=== PATIENT | female | born 1985 | race Two or more races ===

== ENCOUNTER → 2018-05-03 15:45 | Outpatient (CLI) | payer BC, SELFPAY ==
[2018-05-04 12:23] LABS: Chlamydia Trachomatis by PCR Negative (Negative); Neisserai gonorrhoeae by PCR Negative (Negative); Probe Check PASS; Sample Adequacy Control PASS; Specimen Processing Control PASS
== END ==
PROVIDERS: Visit Provider Obstetrics & Gynecology
DX: Z11.3 Encounter for screening for infections with a predominantly sexual mode of transmission (principal)
CPT/HCPCS: 87491; 87591

== ENCOUNTER → 2018-05-31 10:15 | Outpatient (CLI) | payer BC, SELFPAY ==
[2018-06-06 17:12] LABS: HPV APTIMA, High Risk Negative (Negative)
== END ==
PROVIDERS: Referring Provider Obstetrics & Gynecology; Visit Provider Obstetrics & Gynecology
DX: Z12.4 Encounter for screening for malignant neoplasm of cervix (principal)
CPT/HCPCS: 88175; G0145

== ENCOUNTER → 2021-06-02 | Outpatient (CLI) | payer BC, SELFPAY ==
--- NOTE | 2021-06-02 08:30 | FLU_PTH ---
PATIENT: ZAC KEEN LOC: [facility] U#:[id number] AGE/SX: 36/F ROOM: RE06/02/[address]: Dr. Kenrick Cano MD : 1985 BED: DIS: 06/02/2021 SPEC #: [id number] RECD: 06/02/21 14:47 STATUS: AZRA JANAY #: [id number] FLAQUITO: 06/02/21 08:[address]: Kenrick Cano DEPT: CYTOLOGY RECD BY: Priscilla Josue ENTERED: 06/03/21 07:36 SP TYPE: Fluid OTHR DR: ANIBAL Workman Tissues: A - Thyroid gland, NOS B - Thyroid gland, NOS Procedures: Special Stain Group II Surgery Specimen Level IV Cytospin Fluid HEADER OPERATION: Right thyroid fine needle aspiration PRE-OP DIAGNOSIS: Right thyroid nodule TISSUE SUBMITTED: A ? Right thyroid nodule fluid, B ? Right thyroid nodule x4 slides DIAGNOSIS CYTOLOGY A. Right thyroid nodule fluid, FNA (cytospin and cell block): Rare benign follicular cells are noted. B. Right thyroid nodule, FNA (smears): Consistent with benign follicular/colloid nodule. Adequate for evaluation. See comment. SJ:luisito 06/04/2021 COMMENT B. The specimen shows drying artifact. Correlation with clinical, radiologic findings and appropriate follow up are necessary. Case has been reviewed in consultation with Dr. Reese who concurs with the above diagnosis. IDC:AM CYTOLOGY STUDY Slides are reviewed. CYTOLOGY GROSS A - Received is 35 ml of clear light red fluid labeled with the patient's name and and designated per the requisition as right thyroid. Submitted for cytology preparation including cell block. B - Received are four smears labeled with the patient's name and designated per the requisition as right thyroid. Submitted for staining. / luisito 06/03/2021 TC:5 CPT: 80104, 87267, 95741
== END | disposition home or self-care (01) ==
LOC: LABSPEC 15:05
PROVIDERS: PCP Physician Assistant; Visit Provider Surgery
DX: E04.1 Nontoxic single thyroid nodule (principal)
CPT/HCPCS: 88108; 88305; 88313

== ENCOUNTER 2021-06-23 05:56 | Day surgery (SDC) | payer BC, SELFPAY ==
[2021-06-23] VITALS (10 sets, daily range): BP systolic 102–120; BP diastolic 50–81; PULSE 75–129; RESP 16–18; TEMP 36.2–37.1; O2SAT 96–100; BMI 23.1
--- NOTE | 2021-06-23 | IMM_PTH ---
PATIENT: ZAC KEEN [place] [facility] [place][id number] AGE/SX: 36/F ROOM: RE06/23/[address]: Dr. Kenrick Cano MD : 1985 BED: DIS: 06/23/2021 SPEC #: [id number] RECD: 06/24/21 12:11 STATUS: AZRA REQ #: [id number] FLAQUITO: 06/23/21 00:[address]: Kenrick Cano DEPT: IMMUNOHISTOCHEMISTRY RECD BY: Karley De Leon ENTERED: 06/24/21 12:13 SP TYPE: IMMUNO OTHR DR: ANIBAL Workman Tissues: Thyroid gland, NOS Procedures: CK19 (initial) CD56 (add) GAL-3 (add) HBME (add) TTF1 (add) Comments: @ Specimen number changed from [id number] to [id number] @ on 06/24/21 at 1221 by RGOOD. PHYSICIAN & [place] [id number] SPECIMEN INFORMATION: Tissue Source: Right thyroid lobectomy Clinical Info: Thyroid nodule Specimen Number: [id number] #4 CPT code: 79739, 25200 x4 METHODOLOGY: Deparaffinized sections of prefer/formalin-fixed tissue or PAP/DQ stained slides are incubated with monoclonal/polyclonal antibodies/oligonucleotide probes. Localization is made via biotin free immunoperoxidase method. Appropriate controls are performed and reacted as expected. Results on target cell population are indicated in the following table: RESULTS: ANTIBODY / CLONE RESULT Block 4 CK19 (A53-B/A2.26) positive TTF-1 (8G7G3/1) positive CD56 (123C3.D5) negative GAL3 (9C4) positive HBME1 (HBME-1) positive These tests were developed and their performance characteristics determined by [facility]. They may not have been cleared or approved by the U.S. Food and Drug Administration. The FDA has determined that such clearance or approval is not necessary. The above immunohistochemical/dualISH markers are ordered and reviewed by the Pathologist. INTERPRETATION: Right thyroid lobectomy: Papillary thyroid carcinoma. AM:luisito 06/26/2021
--- NOTE | 2021-06-23 | THYROID_PTH ---
PATIENT: ZAC KEEN LOC: [facility] [place] U#:[id number] AGE/SX: 36/F ROOM: RE06/23/[address]: Dr. Kenrick Cano MD : 1985 BED: DIS: 06/23/2021 SPEC #: [id number] RECD: 06/23/21 10:23 STATUS: AZRA JANAY #: [id number] FLAQUITO: 06/23/21 00:[address]: Kenrick Cano DEPT: SURGICAL PATHOLOGY RECD BY: Karley De Leon ENTERED: 06/23/21 11:18 SP TYPE: THYROID OTHR DR: ANIBAL Workman Tissues: Thyroid gland, NOS Procedures: Frozen Section (charge) Surgery Specimen Level V HEADER OPERATION: Right thyroid lobectomy with isthmusectomy PRE-OP DIAGNOSIS: Thyroid nodule TISSUE SUBMITTED: Right thyroid lobe and isthmus, stitch ross superior pole, FS at 1020 FROZEN SECTION DIAGNOSIS Right thyroid lobe, lobectomy: Cellular follicular lesion. AM:lusiito 06/23/2021 Case has been reviewed in consultation with Dr. Chaparro who concurs with the above diagnosis. IDC:SJ MICROSCOPIC DIAGNOSIS Right thyroid lobe, lobectomy: Papillary thyroid carcinoma, follicular variant. See cancer synoptic report below. AM:luisito COMMENT THYROID CANCER SUMMARY Procedure: Right thyroid lobectomy Tumor Focality: Unifocal Tumor Site: Right lobe Tumor Size: 1.8 x 1.5 x 1.0 cm Histologic Type: Papillary carcinoma, Follicular variant Margins: Free of carcinoma (<1 mm from posterior margin) Angioinvasion: Not identified Lymphatic Invasion: Not identified Extrathyroidal Extension: Not identified Regional Lymph Nodes: None identified Ancillary Studies: [id number] (results reported separately) Additional Pathologic Findings: Chronic lymphocytic thyroiditis, focal Clinical History: Mass of thyroid PATHOLOGIC STAGE: T1b Nx Mx The above summary is in compliance with [employer] [place] [employer] (CAP) Cancer Protocols Checklist and [place] [employer] Committee on Cancer (AJCC), Staging Manual, 8th Ed. Case has been reviewed in consultation with Dr. Chaparro who concurs with the above diagnosis. IDC:SJ MICROSCOPIC DESCRIPTION Slides are reviewed. GROSS DESCRIPTION Received fresh for frozen section consultation labeled with the patient's name is a specimen designated right thyroid. The specimen consists of a thyroid lobe measuring 6 x 3.5 x 2.5 cm and weighing 18 gm. The anterior surface is inked in blue ink and the posterior surface and is inked in black ink. The specimen is serially sectioned to reveal a solid, judge-white nodule measuring 1.8 x 1.5 x 1 cm. This nodule is contained within the thyroid. The remainder of the thyroidal tissue is beefy red in color. No additional nodules or masses are identified. Industrial Engineering Manager section of the mass is submitted for frozen section consultation in one block (cassette 1). The remainder of the nodule is submitted in cassettes 2-7. The remainder of the lobe of the thyroid is submitted in cassettes 8-11. / AM:luisito 06/23/21 TC:0 CPT: 33617, 16943
[2021-06-23 07:02] LABS: Internal QC Validated? YES +Cl - CLEAR BKGD; Pregnancy, Urine Negative Negative
[2021-06-23] MEDS: Lactated Ringers 1,000 ML 15 ML IV ×2 (07:09→11:32)
--- NOTE | 2021-06-23 07:11 | HP.PCM_ITS ---
History and Physical Date of Admission: 06/23/21 Date of Service: 06/16/21 MR#:[id number]:[id number]: ZAC KEENRep #:[id number]:[id number] Provider:Dr. Kenrick Cano MDAge/Sex: 36/F [facility]:Signed with Addenda ADDENDUM by Dr. Kenrick Cano MD on 06/16/21 at 1349 Intake Chief Complaint: Discuss thyroid surgery Allergies No Known Allergies Allergy (Verified 06/16/21 10:19) Medications norgestimate 0.25 mg-ethinyl estradiol 35 mcg tablet 1 tab PO DAILY 06/02/21 [History Confirmed 06/16/21] omeprazole 20 mg capsule,delayed release 20 mg PO DAILY 06/02/21 [History Confirmed 06/16/21] Assessment and Plan Assessment and Plan (1) Thyroid nodule: Status: Acute Comment: This is a 36-year-old, otherwise healthy, female who presents with newly?diagnosed right thyroid nodule following a work-up for several months of progressive dysphagia. Biochemically, she is euthyroid. She denies any other compressive symptomatology and her history. By ultrasound, this nodule was rated a TI-RADS 5. This nodule was biopsied with ultrasound-guided FNA on 06/02/2021. Specimen was found to be adequate for evaluation and consistent with a benign lesion. However, given its very suspicious ultrasound appearance, I have recommended proceeding with a diagnostic lobectomy (I confirmed with the original imaging that there are no suspicious findings in the patient's left thyroid lobe and the area of concern as well within the right thyroid lobe?not in proximity of the isthmus). Also was careful to show the patient my suspicion for extrathyroidal extension on the original ultrasound images. We reviewed in detail using sketches the relevant anatomy and the risks/benefits associated with the procedure. Enumerated, these risks included those of hypocalcemia and recurrent laryngeal nerve injury. She and her were given the opportunity ask questions. At the conclusion of the visit, they denied any further questions and expressed to the desire to proceed as recommended. 06/16/21 1349<Electronically signed by Kenrick Cano MD>Date Kenrick Cano MD cc: ANIBAL Batista ~*Signed Intake Vital Signs 06/16/21 10:18 Height 5 ft 7 in Weight: 150 lb BMI 23.5 BP 120/76 Blood Pressure Location Rt brachial Position Sitting Respiration 18 Pulse 82 Pulse Source Monitor Temp 97.8 F Temp Source Temporal Pulse Oximetry (%) 99 Oxygen Delivery Method room air Intake Visit Reasons: Discuss surgical options Chief Complaint: Discuss thyroid surgery Accompanied by: Is patient in pain?: No Allergies No Known Allergies Allergy (Verified 06/16/21 10:19) Medications norgestimate 0.25 mg-ethinyl estradiol 35 mcg tablet 1 tab PO DAILY 06/02/21 [History Confirmed 06/16/21] omeprazole 20 mg capsule,delayed release 20 mg PO DAILY 06/02/21 [History Confirmed 06/16/21] PFSH Medical History (Updated 06/16/21 @ 13:[address] Kenrick Cano MD) Acid reflux Thyroid nodule Surgical History H/O section Family History Grandmother Cancer Thyroid disorder Social History Smoking Status: Never smoker alcohol intake: current alcohol intake frequency: a few times a month HPI HPI HPI: ZAC KEEN, is a 36 F who presents to the office today for right thyroid nodule. They are referred for surgical consultation from ANIBAL Workman. This was discovered during a work-up for symptoms of swallowing difficulties over the past couple months. Her initial consultation was on 06/02/2021 during which time she underwent ultrasound?guided FNA of her suspicious right thyroid nodule. Those results were benign and are recapitulated below. However, given the very suspicious sonographic picture of this nodule, I telephoned the patient and advised her I was uncomfortable merely surveilling this nodule and recommended thyroid lobectomy. She presents today for preoperative discussion. States that her swallowing symptoms have remained stable. She gives the example of today's breakfast (a half bagel and yogurt) stating that she felt things getting stuck. She also relates that her cousin recently went through with a thyroid operation. She is uncertain of the diagnosis that occasioned this operation. However, her cousin's postoperative course was complicated by some vocal cord issues that persisted for approximately 1 year postoperatively. Previous work-up has included thyroid ultrasound which shows a right thyroid lobe, midpole nodule measuring 1.6 cm x 1.6 cm x 1.6 cm and was rated a TI-RADS 5. An FNA was performed by me under ultrasound guidance on 06/02/2021 with the results: DIAGNOSIS CYTOLOGY A. Right thyroid nodule fluid, FNA (cytospin and cell block):Rare benign follicular cells are noted.B. Right thyroid nodule, FNA (smears):Consistent with benign follicular/colloid nodule.Adequate for evaluation. Other tests include: TSH of 1.76 (05/12/2021) ROS General General: No weight change, appetite, fatigue, colon cancer, breast cancer or weakness HEENT HEENT: No difficulty swallowing, eye injury, eye surgery, swollen glands or hoarseness Endo Endocrine: No thyroid disease, diabetes mellitus, thyroid cancer, Hair loss, heat intolerance or cold intolerance Skin Skin: No rash or changing moles Breast Breast: No left breast lump, right breast lump, nipple discharge, breast pain, abnormal mammogram, abnormal US or breast enlargement Musc Musculoskeletal: No back problems, arthritis, rheumatoid arthritis, gout or joint pain Cardio Cardiovascular: No murmur, pacemaker, heart disease, atrial fibrillation, high blood pressure, heart attack, heart stent, palpitations, shortness of breat with exertion or chest pain Psych Psychiatric: No depression, anxiety or hearing voices Resp Respiratory: No shortness of breath, No sleep apnea, No cough, No COPD, No asthma, No emphysema and No wheezing Gastro Gastrointestinal: No abdominal pain, No nausea or vomiting, No diarrhea, No constipation, No blood in stool, Yes acid reflux, No hemorrhoids, No ulcers, No gallbladder problem and No black,tarry stools Claude Hematologic: No blood thinners, No blood disorders, No bleeding, No anemia and No blood clots Neuro Neurologic: No system reviewed and no additional complaints, except as documented, No as per HPI, No abnormal gait, No abnormal hearing, No abnormal movements, No abnormal speech, No behavioral changes, No burning sensations, No confusion, No convulsions, No disequilibrium, No dizziness, No localized weakness, No frequent falls, No headache(s), No lack of coordination, No loss of vision, No memory loss, No numbness, No other visual disturbances, No radicular pain, No restless legs, No sensory deficit, No syncope, No tingling, No tremor(s), No weakness and No other Exam Const General: cooperative and no acute distress Orientation: alert, awake and oriented x3 Neck Thyroid: asymmetrical, mass on the right on the right and tender (Mild discomfort with palpation) Assessment and Plan Assessment and Plan (1) Thyroid nodule: Status: Acute Comment: This is a 36-year-old, otherwise healthy, female who presents with newly?diagnosed right thyroid nodule following a work-up for several months of progressive dysphagia. Biochemically, she is euthyroid. She denies any other compressive symptomatology and her history. By ultrasound, this nodule was rated a TI-RADS 5. This nodule was biopsied with ultrasound-guided FNA on 06/02/2021. Specimen was found to be adequate for evaluation and consistent with a benign lesion. However, given its very suspicious ultrasound appearance, I have recommended proceeding with a diagnostic lobectomy (I confirmed with the original imaging that there are no suspicious findings in the patient's left thyroid lobe and the area of concern as well within the right thyroid lobe?not in proximity of the isthmus). We reviewed in detail using sketches the relevant anatomy and the risks/benefits associated with the procedure. Enumerated, these risks included those of hypocalcemia and recurrent laryngeal nerve injury. She and her were given the opportunity ask questions. At the conclusion of the visit, they denied any further questions and expressed to the desire to proceed as recommended. Plan - Dr. Kenrick Cano MD: ?Right thyroid lobectomy with intraoperative nerve monitoring I have re-examined the patient. There are no clinical changes since date of exam. I did discuss with the patient the intent to use frozen section help guide her operation today. I indicated that if there was a definitive change in the pathologic diagnosis it would be best to pursue a total thyroidectomy given the suspicion for extrathyroidal extension on the right. Patient and her were given the opportunity ask questions and agreed to proceed with this addendum to the informed consent.
[2021-06-23] MEDS: Bupivacaine 0.25% 30 ML Vial (10:50)
--- NOTE | 2021-06-23 10:54 | PCM.OPRPT ---
Report of Operation Date of Procedure: 06/23/21 Pre-Operative Diagnosis: Suspicious right thyroid nodule Post-Operative Diagnosis: Follicular lesion of the right thyroid by frozen section without papillary architecture Surgery/Procedure Performed:: Right thyroid lobectomy/isthmusectomy Description of Surgical Findings:: ?Firm right thyroid nodule with post FNA inflammatory changes and adhesions to the overlying sternothyroid ?Intact superior and inferior parathyroid glands by gross examination ?Intact recurrent laryngeal nerve (gross examination and intraoperative nerve simulation Surgeon: Kenrick Cano grain merchandising manager: Jess Stewart Type of Anesthesia: General/Supplemental Anesthesiologist: Elliott Reynaga Specimen's removed: Right thyroid lobe and isthmus Estimated Blood Loss (mL): 75 Description of Procedure: Appropriate identification in the preoperative holding area patient was brought to the operating room where she was positioned supine on the operating room table. There she induction with general endotracheal anesthetic. A Nims nerve monitoring tube was placed with the glide scope device to ensure coaptation between the tube electrodes in the patient's vocal cords. Patient was positioned with neck extension but care was made to ensure that there was not over extension. Her neck was then prepped and draped in the usual sterile fashion. A formal timeout was conducted to confirm both the patient and the procedure. Then a local block was produced in long the planned incision line. A transverse cervical incision was made in the lowest skin fold nearest the cricoid cartilage, 4 cm in length. This incision was deepened through the platysma with the use of electrocautery. Subplatysmal flaps were raised superiorly and inferiorly with electrocautery. Then the strap muscles were divided along the median raphe. It quickly proved evident that the sternothyroid muscle was somewhat adherent to the patient's thyroid capsule anteriorly so I elected to try to leave a small amount of muscle attached to the thyroid capsule in the case of possible extrathyroidal extension. Ultimately we were able to free this muscle from the thyroid capsule on the right side of the neck. The superior pole of the right thyroid lobe was then dissected out and vessels were taken with LigaSure. The same process was then used to free up the inferior pole of the gland. However, during this dissection we identified the inferior parathyroid and took care to lyse the attachments to the capsule well onto the thyroid and notched the parathyroid out of the surgical field. Parathyroid gland appeared viable following this mobilization. The muscular attachments to the capsule were gradually dissected away from the gland. No dominant middle thyroid vein was encountered with this dissection. I did identify a nerve?like structure at the inferior pole that had a positive signal with our nerve monitor so care was taken to preserve this structure and elevate the remainder of the gland off the thyroid cartilage. 4-0 silk suture ligatures were used on the gland at this point to minimize the risk for thermal injury to the nerve. More cephalad, I encountered the recurrent laryngeal nerve in its usual position as it approached the cricothyroid joint. Meticulous dissection was used to separate the thyroid tissue from the nerve inferiorly and superiorly. Here again, 4-0 silk suture ligatures were applied to the thyroid tissue to avoid thermal injury. As we proceeded superiorly, I did encounter the superior parathyroid gland and this was mobilized from the thyroid capsule to preserve its integrity. Ultimately the thyroid gland was mobilized completely away from the recurrent laryngeal nerve and electrocautery was applied to remove the isthmus from the anterior surface of the thyroid cartilage. The thyroid isthmus was very attenuated as it approached the left lobe of the thyroid and did not require transection with LigaSure for removal of the lobe/isthmus specimen. The specimen was oriented with a stitch in the superior pole and passed off of the field for pathologic processing. Frozen section had been requested. The surgical field was then inspected for hemostasis and largely found to be intact aside from a single loose vessel near where the superior pole had resided. Once this was addressed, inspection revealed an hemostasis to be intact. I was also able to identify the superior and inferior parathyroid glands with good perfusion. The recurrent laryngeal nerve was stimulated with a good signal on the nerve monitor. I elected to begin closure at this point and the strap muscles were closed with a running 3-0 Vicryl stitch. At this point are frozen section result returned as positive for a follicular lesion without clear evidence of papillary thyroid carcinoma architecture. Therefore, I concluded the procedure and the platysma was closed with interrupted 3-0 Vicryl. A 4-0 Monocryl was used in a subcuticular fashion for the skin. Steri-Strips and Telfa were applied as a dressing. The patient was then extubated without event, placed in a head up position, and transferred to PACU for ongoing recovery. Complications None Admit VTE Documentation VTE Mechan Device Prophylaxis: SCD's Procedures Endocrine CF Procedures [id number]: 26813 Partial thyroid excision
--- NOTE | 2021-06-23 10:57 | EX.PCM.DISCH ---
Discharge Instructions Diet Discharge Diet: No restrictions Activity Discharge Activity: May Not Drive (If difficult to turn head right and left to check blind spots) and May Shower May shower in (days): 1 Ice area for (Minutes): 20 Lifting Restrictions: No more than 15 pounds for the first 2 weeks after surgery Additional Activity Instructions:: Please exercise for range of motion regularly Dressing / Incision Call your doctor if your incision/area has: Continuous Slow Oozing, Sudden Increased Bleeding, Increased Pain/ Swelling, Increased Redness and Swelling at the incision site Call your doctor if you observe: Fever of 101 or Higher Change Dressing in: leave in place till F/U Cleanse incision/area with: Soap & Water Follow Up Care Please Follow Up With: Kenrick Cano MD When: 1 week postop Test Results: Test results from this visit will be discussed in further detail at your follow-up appointment, if applicable. Discharge Plan Admission Primary Reason for Your Visit: Suspicious right thyroid nodule Attending Provider: Kenrick Cano Primary Care Provider: Alanis Batista Instructions Patient Instructions: Thyroidectomy Post Op Discharge Orders/Prescriptions Prescriptions: No Action norgestimate-ethinyl estradiol [Sprintec (28)] 0.25-35 mg-mcg tablet 1 tab PO DAILY RF: 0 omeprazole 20 mg capsule,delayed release(DR/EC) 40 mg PO DAILY RF: 0 Referrals / Follow Up: Alanis Batista PA [Primary Care Provider] - Disposition Disposition (needs filled in before D/C Order can be placed): Home, Self Care
== END 2021-06-23 16:27 | disposition home or self-care (01) ==
LOC: SDC 06:00 → AC 06:00
PROVIDERS: Anesthesiology; PCP Physician Assistant; Referring Provider Surgery; Visit Provider Surgery
PROC: (CPT 60220; principal; 2021-06-23 07:15)
DX: E04.1 Nontoxic single thyroid nodule (principal); K21.9 Gastro-esophageal reflux disease without esophagitis; J45.909 Unspecified asthma, uncomplicated
CPT/HCPCS: 60220; 81025; 88307; 88331; 88341; 88342; J7120; J2405

== ENCOUNTER 2021-07-28 08:41 | Outpatient (CLI) | payer BC, SELFPAY ==
[2021-07-28 09:46] LABS: Free T3 2.6 pg/mL (2.18-3.98); T4 Total, Thyroxin 10.4 ug/dL (4.8-13.9); Thyroid Stim Hormone (TSH) 2.95 uIU/mL (0.358-3.74)
== END 2021-07-28 23:59 | disposition short-term general hospital (02) ==
LOC: PAVLAB 08:42
PROVIDERS: PCP Physician Assistant; Referring Provider Surgery; Visit Provider Surgery
DX: C73 Malignant neoplasm of thyroid gland (principal); E04.1 Nontoxic single thyroid nodule
CPT/HCPCS: 36415; 84436; 84443; 84481

== ENCOUNTER → 2022-01-05 | Outpatient (CLI) | payer BC, SELFPAY ==
[2022-01-05 08:27] LABS: Free T3 2.8 pg/mL (2.18-3.98); T4 Total, Thyroxin 7.5 ug/dL (4.8-13.9)
== END | disposition home or self-care (01) ==
LOC: PAVLAB 07:32
PROVIDERS: PCP Physician Assistant; Referring Provider Surgery; Visit Provider Surgery
DX: Z90.09 Acquired absence of other part of head and neck (principal)
CPT/HCPCS: 36415; 84436; 84443; 84481

== ENCOUNTER 2022-06-19 15:33 | Outpatient (CLI) | payer BC, SELFPAY ==
--- NOTE | 2022-06-19 15:35 | US_ITS ---
EXAM: US SOFT TISSUES HEAD AND NECK, THYROID CLINICAL INDICATION: yearly follow up -- Left side only - right and isthmus removed TECHNIQUE: Greyscale and color doppler imaging was performed of the thyroid gland. This report was created using [employer] report [employer] technology. COMPARISON: None. FINDINGS: LEFT THYROID LOBE: 6.4 x 2.5 x 1.9 cm left thyroid lobe. Left lobe contains a 3 mm cystic nodule which is likely benign. Homogeneous echotexture with normal vascularity. RIGHT THYROID LOBE: Surgically absent right lobe. Homogeneous echotexture with normal vascularity. No thyroid nodules are present. ISTHMUS: Unremarkable. No thyroid nodules are present. LYMPH NODES: No adjacent adenopathy. OTHER FINDINGS: No parenchymal hypervascularity. US/Thyroid IMPRESSION: 1. Benign-appearing 3 mm nodule involving the left thyroid lobe. 2. Surgically absent right thyroid lobe. 3. No other abnormalities. Electronically Signed: Tad Bean MD at 1:45 EST ,
[2022-06-19 17:40] LABS: T4 Total, Thyroxin 8.4 ug/dL (4.8-13.9); Thyroid Stim Hormone (TSH) 2.64 uIU/mL (0.358-3.74)
== END 2022-06-19 23:59 | disposition home or self-care (01) ==
PROVIDERS: PCP Physician Assistant; Referring Provider Surgery; Visit Provider Surgery
DX: Z90.09 Acquired absence of other part of head and neck (principal); C73 Malignant neoplasm of thyroid gland; E04.1 Nontoxic single thyroid nodule
CPT/HCPCS: 36415; 76536; 84436; 84443; 84481

== ENCOUNTER → 2023-04-21 | Outpatient (CLI) | payer BC, SELFPAY ==
--- NOTE | 2023-04-21 13:04 | US_ITS ---
EXAM: US SOFT TISSUES HEAD AND NECK, THYROID CLINICAL INDICATION: thyroid cancer TECHNIQUE: Conner scale and color doppler imaging was performed of the thyroid gland. COMPARISON: US Thyroid dated 06/19/2022 FINDINGS: LEFT THYROID LOBE: Left thyroid lobe measures 6.4 x 2.5 x 1.8 cm. Stable diffusely heterogeneous echotexture without dominant mass lesion. RIGHT THYROID LOBE: Surgical absence of the right thyroid lobe again noted. Homogeneous echotexture with normal vascularity. No thyroid nodules are present. ISTHMUS: Normal. No thyroid nodules are present. US/Thyroid IMPRESSION: Stable thyroid ultrasound. Electronically Signed: Allen Blanchard MD at 11:17 EDT ,
[2023-04-21 15:43] LABS: Free T3 2.7 pg/mL (2.18-3.98); T4 Total, Thyroxin 7.8 ug/dL (4.8-13.9); Thyroid Stim Hormone (TSH) 2.33 uIU/mL (0.358-3.74)
== END | disposition home or self-care (01) ==
PROVIDERS: PCP Physician Assistant; Referring Provider Surgery; Visit Provider Surgery
DX: C73 Malignant neoplasm of thyroid gland (principal); E04.1 Nontoxic single thyroid nodule; Z90.09 Acquired absence of other part of head and neck
CPT/HCPCS: 36415; 76536; 84436; 84443; 84481

== ENCOUNTER 2023-05-13 08:49 | Day surgery (SDC) | payer BC, SELFPAY ==
[2023-05-13] VITALS (10 sets, daily range): BP systolic 80–114; BP diastolic 52–85; PULSE 64–91; RESP 16; TEMP 36.3–37.1; O2SAT 94–100; BMI 24.1
[2023-05-13 09:29] LABS: Internal QC Validated? YES +Cl - CLEAR BKGD; Pregnancy, Urine Negative Negative; Record Kit Lot#,Urine Preg HCG0000667200
[2023-05-13] MEDS: Lactated Ringers 1,000 ML 15 ML IV (09:49)
--- NOTE | 2023-05-13 10:00 | EGD_PTH ---
PATIENT: ZAC KEEN LOC: EN U#:[id number] AGE/SX: 38/F ROOM: RE05/13/[address]: Dr. Kenrick Cano MD : 1985 BED: DIS: 05/13/2023 SPEC #: [id number] RECD: 05/13/23 14:57 STATUS: AZRA JANAY #: [id number] FLAQUITO: 05/13/23 10:[address]: Kenrick Cano DEPT: SURGICAL PATHOLOGY RECD BY: Rhonda Vieira ENTERED: 05/14/23 07:57 SP TYPE: EGD BIOPSY OTHR DR: ANIBAL Workman Tissues: A - Gastric mucous membrane B - Esophagus, NOS C - Esophagus, NOS Procedures: Special Stain Group II Surgery Specimen Level IV Alcian Blue/PAS (control) HEADER OPERATION: EGD - PH probe placement, biopsy PRE-OP DIAGNOSIS: Acid reflux, globus sensation, dysphagia TISSUE SUBMITTED: A - Antrum biopsy for histo and H. pylori, B - Gastroesophageal junction biopsy, C - Mid esophagus nodules biopsy MICROSCOPIC DIAGNOSIS A. Gastric antrum, biopsy: Chronic gastritis. See comment. B. Gastroesophageal junction, biopsy: Gastroesophageal junction with mild chronic inflammation. Reflux esophagitis. No evidence of goblet cell metaplasia. See comment. C. Mid esophagus nodules, biopsy: Minimal chronic inflammation. See comment. AM:luisito 05/17/2023 COMMENT A. The results of immunohistochemistry for Helicobacter pylori will be reported separately ([id number]). B. Alcian blue/PAS stain with matched control supports the above diagnosis. Eosinophils number greater than 20 in a high power field. Clinical correlation is suggested. C. Eosinophils average 1 to 2 per high power field. Clinical correlation is suggested. MICROSCOPIC DESCRIPTION Slides are reviewed. GROSS DESCRIPTION A - Received in fixative is one container labeled with the patient's name and designated antrum biopsy. The specimen consists of one irregular fragment of light judge soft tissue that measures 0.3 x 0.3 x 0.1 cm. The specimen is totally submitted in one cassette. B - Received in fixative is one container labeled with the patient's name and designated GE junction biopsy. The specimen consists of multiple irregular fragments of light judge soft tissue that in aggregate measure 0.7 x 0.2 x 0.1 cm. The specimen is totally submitted in one cassette. C - Received in fixative is one container labeled with the patient's name and designated mid esophagus biopsy. The specimen consists of multiple irregular fragments of light judge soft tissue that in aggregate measure 0.6 x 0.4 x 0.1 cm. The specimen is totally submitted in one cassette. / SJ:rg 05/14/2023 TC:3 CPT: 26797 x3, 41162
--- NOTE | 2023-05-13 10:00 | IMM_PTH ---
PATIENT: ZAC KEEN LOC: EN U#:[id number] AGE/SX: 38/F ROOM: RE05/13/[address]: Dr. Kenrick Cano MD : 1985 BED: DIS: 05/13/2023 SPEC #: [id number] RECD: 05/14/23 12:53 STATUS: AZRA REIsidoro #: [id number] FLAQUITO: 05/13/23 10:[address]: Kenrick Cano DEPT: IMMUNOHISTOCHEMISTRY RECD BY: Karley De Leon ENTERED: 05/14/23 12:53 SP TYPE: IMMUNO OTHR DR: ANIBAL Workman Tissues: A - Stomach, NOS Procedures: H Pylori (initial) PHYSICIAN & INSTITUTION [place] [address] SPECIMEN INFORMATION: Tissue Source: A - Antrum biopsy Clinical Info: Acid reflux, globus sensation, dysphagia Specimen Number: [id number] CPT code: 85554 METHODOLOGY: Deparaffinized sections of prefer/formalin-fixed tissue or PAP/DQ stained slides are incubated with monoclonal/polyclonal antibodies/oligonucleotide probes. Localization is made via biotin free immunoperoxidase method. Appropriate controls are performed and reacted as expected. Results on target cell population are indicated in the following table: RESULTS: ANTIBODY / CLONE RESULT Block A H Pylori (polyclonal) negative These tests were developed and their performance characteristics determined by [facility]. They may not have been cleared or approved by the U.S. Food and Drug Administration. The FDA has determined that such clearance or approval is not necessary. The above immunohistochemical/dualISH markers are ordered and reviewed by the Pathologist. INTERPRETATION: A. Antrum, biopsy: Negative for Helicobacter pylori organisms. AM:luisito 05/17/2023
--- NOTE | 2023-05-13 10:20 | HP.PCM_ITS ---
HPI - General HPI Narrative Patient is a 38-year-old female known to me for a history of thyroid lobectomy related to a diagnosis of thyroid cancer. During her recent follow-up of that diagnosis she indicated that she had something of a globus sensation and has a history of acid reflux. Therefore I recommended we plan for a diagnostic EGD with pH probe placement. Patient was receptive of this recommendation and presents today for this procedure. She denies any other interval issues, but continues to note a feeling of fullness in her throat with swallowing. [facility] Medical History (Updated 05/13/23 @ 10:[address] Kenrick Cano MD) Acid reflux Alcohol use Asthma Chest pain Gastric reflux Non-smoker Thyroid cancer Thyroid nodule Wears contact lenses Home Medications amoxicillin 500 mg tablet 500 mg PO TID 05/05/23 [History Last Taken Unknown] multivitamin (Daily Multi-Vitamin tablet) 1 tab PO DAILY 05/05/23 [History Last Taken Unknown] Allergy/AdvReac Type Severity Reaction Status Date / Time cefaclor [From [facility]] Allergy Rash Verified 05/13/23 09:47 Family History Grandmother Cancer Thyroid disorder Surgical History H/O section History of lobectomy of thyroid Hx of oral surgery Hx of wisdom tooth extraction Social History Smoking Status: Never smoker alcohol intake: current alcohol intake frequency: a few times a month Vital Signs Vital Signs Vital Signs: 05/13/23 09:50 05/13/23 09:50 Temperature 98.8 F Temperature Source Temporal Pulse Rate 91 Respiratory Rate 16 Respiratory Pattern Normal Blood Pressure 112/77 Blood Pressure Mean 88 Blood Pressure Source Monitor Blood Pressure Position Semi-Fowlers Blood Pressure Location Left Arm Pulse Ox 100 Oxygen Delivery Method Room Air Weight Weight: 154 lb 5.177 oz Body Mass Index (BMI) 24.1 Physical Exam Const alert, oriented x3 and no apparent distress HEENT HEENT Narrative: Well-healed cervical neck incision without masses or lymphadenopathy. Results Lab / Micro Data Labs: Laboratory Results - last 24 hr 05/13/23 09:07: Urine Test Negative Assessment & Plan Assessment/Plan (1) Acid reflux: (2) Globus sensation: (3) Dysphagia: PLAN: Plan As above, patient is 38-year-old female with a history of thyroid cancer status post thyroid lobectomy who presents with more recent complaints of dysphagia and globus sensation in a background of acid reflux disease. Therefore I recommended EGD with pH probe placement to more objectively evaluate this situation. Patient presents today for that procedure. Procedure expectations were reviewed and patient denies any further questions. We will proceed to endoscopy suite for EGD as discussed. Charges/Coding Visit Charges Office Visits / Consults: [id number] OV L2 Est
--- NOTE | 2023-05-13 10:58 | OP.EGD_ITS ---
Patient Name: Sima Caballero Procedure Date: 05/13/2023 9:58 AM Date of : 1985 Age: 38 Procedure: Upper GI endoscopy Indications: Dysphagia, Esophageal reflux, Globus sensation Providers: Kenrick Cano MD Referring MD: Kenrick Cano MD Medicines: See the Anesthesia note for documentation of the administered medications Patient Profile: Refer to note in patient chart for documentation of history and physical. Patient has symptoms of acute dysphagia. Complications: No immediate complications. Estimated blood loss: Minimal. Procedure: Pre-Anesthesia Assessment: - The heart rate, respiratory rate, oxygen saturations, blood pressure, adequacy of pulmonary ventilation, and response to care were monitored throughout the procedure. After obtaining informed consent, the endoscope was passed under direct vision. Throughout the procedure, the patient's blood pressure, pulse, and oxygen saturations were monitored continuously. The Endoscope was introduced through the mouth, and advanced to the second part of duodenum. The upper GI endoscopy was accomplished without difficulty. The patient tolerated the procedure well. Scope In: 10:26:12 AM Scope Out: 10:47:46 AM Total Procedure Duration Time 0 hours 21 minutes 34 seconds Findings: The duodenal bulb, first portion of the duodenum and second portion of the duodenum were normal. No biopsies or other specimens were collected for this exam. Localized mildly erythematous mucosa without bleeding was found in the gastric antrum. Biopsies were taken with a cold forceps for Helicobacter pylori testing. Estimated blood loss was minimal. A small hiatal hernia was present. Estimated blood loss was minimal. The Z-line was regular and was found 40 cm from the incisors. Biopsies were taken with a cold forceps for histology. Estimated blood loss was minimal. A few 5 mm mucosal nodules with a localized distribution were found in the middle third of the esophagus. The nodules were Martita classification Is (protruding, sessile). Biopsies were taken with a cold forceps for histology. Estimated blood loss was minimal. The exam of the esophagus was otherwise normal. The SEQUEIRA capsule with delivery system was introduced through the mouth and advanced into the esophagus, such that the SEQUEIRA pH capsule was positioned 34 cm from the incisors, which was 6 cm proximal to the GE junction. The SEQUEIRA pH capsule was then deployed and attached to the esophageal mucosa. The delivery system was then withdrawn. Endoscopy was utilized for probe placement and diagnostic evaluation. Impression: - Normal duodenal bulb, first portion of the duodenum and second portion of the duodenum. No specimens collected. - Erythematous mucosa in the antrum. Biopsied. - Small hiatal hernia. - Z-line regular, 40 cm from the incisors. Biopsied. - Mucosal nodule found in the esophagus. Biopsied. - The SEQUEIRA pH capsule was deployed. Recommendation: - Discharge patient to home (via wheelchair). - Resume previous diet today. - Continue present medications. - Await pathology results. - Telephone my office for pathology results in 1 week. Procedure Code(s): --- Professional --- 28124, Esophagogastroduodenoscopy, flexible, transoral; with biopsy, single or multiple Diagnosis Code(s): --- Professional --- K31.89, Other diseases of stomach and duodenum K44.9, Diaphragmatic hernia without obstruction or gangrene K22.89, Other specified disease of esophagus R13.10, Dysphagia, unspecified K21.9, Gastro-esophageal reflux disease without esophagitis F45.8, Other somatoform disorders CPT copyright 2021 [employer] [place] [employer]. All rights reserved. The codes documented in this report are preliminary and upon cable wirer review may be revised to meet current compliance requirements. Kenrick Cano MD 05/13/2023 10:57:58 AM This report has been signed electronically. Number of Addenda: 0 Note Initiated On: 05/13/2023 9:58 AM
--- NOTE | 2023-05-13 10:58 | OP.CCLET_ITS ---
05/13/2023 Alanis Batista Re : Upper GI endoscopy procedure for Sima Batista This procedure was performed on April. My impressions and recommendations are as follows: Impressions : - Normal duodenal bulb, first portion of the duodenum and second portion of the duodenum. No specimens collected. - Erythematous mucosa in the antrum. Biopsied. - Small hiatal hernia. - Z-line regular, 40 cm from the incisors. Biopsied. - Mucosal nodule found in the esophagus. Biopsied. - The SEQUEIRA pH capsule was deployed. Recommendations : - Discharge patient to home (via wheelchair). - Resume previous diet today. - Continue present medications. - Await pathology results. - Telephone my office for pathology results in 1 week. My findings are described in the full procedure note, which is enclosed. If I can be of further assistance, please feel free to contact me at Doctor phone number(s): , Work: . Sincerely, Kenrick Cano MD 05/13/2023 10:57:58 AM This report has been signed electronically.
== END 2023-05-13 12:28 | disposition home or self-care (01) ==
LOC: EN 08:51 → AC 08:52
PROVIDERS: Anesthesiology; PCP Physician Assistant; Referring Provider Physician Assistant; Visit Provider Surgery
PROC: (CPT 43235; principal; 2023-05-13 09:55)
DX: K44.9 Diaphragmatic hernia without obstruction or gangrene (principal); K21.9 Gastro-esophageal reflux disease without esophagitis; K31.89 Other diseases of stomach and duodenum; K22.89 Other specified disease of esophagus; F45.8 Other somatoform disorders; Z85.850 Personal history of malignant neoplasm of thyroid
CPT/HCPCS: 43239; 81025; 88305; 88313; 88342; J7120; J2405

== ENCOUNTER 2023-12-09 09:19 | Day surgery (SDC) | payer BC, SELFPAY ==
--- NOTE | 2023-12-09 | IMM_PTH ---
PATIENT: ZAC KEEN LOC: EN U#:[id number] AGE/SX: 38/F ROOM: RE12/09/[address]: Dr. Kenrick Cano MD : 1985 BED: DIS: 12/09/2023 SPEC #: [id number] RECD: 12/10/23 11:38 STATUS: AZRA REIsidoro #: [id number] FLAQUITO: 12/09/23 00:[address]: Kenrick Cano DEPT: IMMUNOHISTOCHEMISTRY RECD BY: Artur Wilkes ENTERED: 12/10/23 11:39 SP TYPE: IMMUNO OTHR DR: ANIBAL Workman Tissues: A - Gastric mucous membrane Procedures: H Pylori (initial) PHYSICIAN & INSTITUTION [place] [address] SPECIMEN INFORMATION: Tissue Source: A- Gastric antrum biopsy Clinical Info: Eosinophilic esophagitis Specimen Number: [id number] CPT code: 01575 METHODOLOGY: Deparaffinized sections of prefer/formalin-fixed tissue or PAP/DQ stained slides are incubated with monoclonal/polyclonal antibodies/oligonucleotide probes. Localization is made via biotin free immunoperoxidase method. Appropriate controls are performed and reacted as expected. Results on target cell population are indicated in the following table: RESULTS: ANTIBODY / CLONE RESULT Block A H Pylori (polyclonal) negative These tests were developed and their performance characteristics determined by [facility]. They may not have been cleared or approved by the U.S. Food and Drug Administration. The FDA has determined that such clearance or approval is not necessary. The above immunohistochemical/dualISH markers are ordered and reviewed by the Pathologist. INTERPRETATION: A. Gastric antrum, biopsy: Negative for Helicobacter pylori organisms. NATALY/ 12/14/2023
[2023-12-09 09:44] VITALS: BP 121/83; PULSE 71; RESP 16; TEMP 36.1; O2SAT 100; BMI 23.3
[2023-12-09] MEDS: Lactated Ringers 1,000 ML 15 ML IV (09:49)
[2023-12-09 10:02] LABS: Internal QC Validated? YES +Cl - CLEAR BKGD; Pregnancy, Urine Negative Negative
--- NOTE | 2023-12-09 10:30 | EGD_PTH ---
PATIENT: ZAC KEEN LOC: EN U#:[id number] AGE/SX: 38/F ROOM: RE12/09/[address]: Dr. Kenrick Cano MD : 1985 BED: DIS: 12/09/2023 SPEC #: [id number] RECD: 12/09/23 18:21 STATUS: AZRA GUSTAFSON #: [id number] FLAQUITO: 12/09/23 10:[address]: Kenrick Cano DEPT: SURGICAL PATHOLOGY RECD BY: Priscilla Josue ENTERED: 12/10/23 10:58 SP TYPE: EGD BIOPSY OTHR DR: ANIBAL Workman Tissues: A - Gastric mucous membrane B - Esophagus, NOS C - Esophagus, NOS Procedures: Surgery Specimen Level IV HEADER OPERATION: EGD with biopsies PRE-OP DIAGNOSIS: Eosinophilic esophagitis TISSUE SUBMITTED: A- Gastric antrum biopsy, B-Esophageal mucosal biopsy, C-Mid esophageal nodule biopsy MICROSCOPIC DIAGNOSIS A. Gastric antrum, biopsy: Chronic gastritis. B. Esophageal mucosa, biopsy: Eosinophilic esophagitis. See comment. C. Mid esophagus nodule, biopsy: Eosinophilic esophagitis. See comment. Louie 12/14/2023 COMMENT A. The results of immunohistochemistry for Helicobacter pylori will be reported separately ([id number]). B&C. Eosinophils number greater then 20 per high power field. Clinical correlation is suggested. MICROSCOPIC DESCRIPTION Slides are reviewed. GROSS DESCRIPTION A. Received in fixative is one container labeled with the patient's name and designated Gastric antrum biopsy. The specimen consists of two irregular fragments of light judge soft tissue that in aggregate measure 0.6 x 0.5 x 0.1 cm. The specimen is totally submitted in one cassette. B. Received in fixative is one container labeled with the patient's name and designated Esophageal mucosa. The specimen consists of one irregular fragment of light judge soft tissue that measures 0.5 x 0.5 x 0.1 cm. The specimen is totally submitted in one cassette. C. Received in fixative is one container labeled with the patient's name and designated Mid esophageal mucosal nodule. The specimen consists of multiple irregular fragments of light judge soft tissue that in aggregate measure 0.6 x 0.2 x 0.1 cm. The specimen is totally submitted in one cassette. NATALY/ 12/10/2023 TC:3 CPT:26331r3
--- NOTE | 2023-12-09 11:03 | PCM.HP.BLA ---
History and Physical Patient is a 38-year-old female known to me for history of thyroid cancer and more recently history of eosinophilic esophagitis diagnosed during EGD 05/13/2023. Patient underwent treatment with topical oral steroids and had symptomatic improvement. She declined follow-up endoscopy but notified our office earlier this month of increased swallowing discomfort. She was recommended follow-up EGD and readily excepted. She presents today stating that this discomfort is ongoing but she otherwise denies any additional health updates. Assessment & Plan Assessment/Plan (1) Dysphagia: PLAN: Recurrent dysphagia after symptom resolution and response to topical steroids for treatment of eosinophilic esophagitis. Suspect this is now recurrent. Will look to proceed with EGD for biopsy today to assess further. (2) Eosinophilic esophagitis: PLAN: History of eosinophilic esophagitis treated with oral steroids successfully 7 months ago. Will plan for close evaluation of esophagus during EGD and probable biopsy to assess for recurrence of EOE. Patient notified that I would like to plan for repeat EGD if this diagnosis is made to confirm desired treatment effect from steroids this time around. She nods her head in agreement. Charges/Coding Visit Charges Office Visits / Consults: 14640 OP Consult L1
[2023-12-09 11:30] VITALS: BP 121/83; BP 88/68; PULSE 82; RESP 16; TEMP 36.4; O2SAT 99
--- NOTE | 2023-12-09 11:30 | OP.EGD_ITS ---
Patient Name: Sima Caballero Procedure Date: 12/09/2023 10:39 AM Date of : 1985 Age: 38 Procedure: Upper GI endoscopy Indications: Eosinophilic esophagitis, Follow-up of eosinophilic esophagitis Providers: Kenrick Cano MD Referring MD: Alanis Batista Medicines: See the Anesthesia note for documentation of the administered medications Patient Profile: Refer to note in patient chart for documentation of history and physical. Patient has symptoms of chronic dysphagia. Complications: No immediate complications. Estimated blood loss: Minimal. Procedure: Pre-Anesthesia Assessment: - The heart rate, respiratory rate, oxygen saturations, blood pressure, adequacy of pulmonary ventilation, and response to care were monitored throughout the procedure. After obtaining informed consent, the endoscope was passed under direct vision. Throughout the procedure, the patient's blood pressure, pulse, and oxygen saturations were monitored continuously. The gastroscope was introduced through the mouth, and advanced to the second part of duodenum. The upper GI endoscopy was accomplished without difficulty. The patient tolerated the procedure well. Scope In: 11:10:02 AM Scope Out: 11:22:49 AM Total Procedure Duration Time 0 hours 12 minutes 47 seconds Findings: The duodenal bulb, first portion of the duodenum and second portion of the duodenum were normal. No biopsies or other specimens were collected for this exam. Localized mildly erythematous mucosa without bleeding was found in the gastric antrum. Biopsies were taken with a cold forceps for Helicobacter pylori testing. Estimated blood loss was minimal. The Z-line was regular and was found 43 cm from the incisors. No biopsies or other specimens were collected for this exam. Scattered mild inflammation characterized by nodularity was found in the lower third of the esophagus. Biopsies were taken with a cold forceps for histology. Estimated blood loss was minimal. A few 3 to 5 mm mucosal nodules with a localized distribution were found in the middle third of the esophagus. The nodules were Martita classification IIa (superficial, elevated). Biopsies were taken with a cold forceps for histology. Estimated blood loss was minimal. The exam was otherwise without abnormality. Impression: - Normal duodenal bulb, first portion of the duodenum and second portion of the duodenum. No specimens collected. - Erythematous mucosa in the antrum. Biopsied. - Z-line regular, 43 cm from the incisors. No specimens collected. - Esophageal mucosal changes were present. Findings are suggestive of inflammation. Biopsied. - Mucosal nodule found in the esophagus. Biopsied. - The examination was otherwise normal. Recommendation: - Discharge patient to home (via wheelchair). - Resume previous diet today. - Use Protonix (pantoprazole) 40 mg PO daily today. - Continue present medications. - No aspirin, ibuprofen, naproxen, or other non-steroidal anti-inflammatory drugs for 2 days after biopsy. Procedure Code(s): --- Professional --- 40778, Esophagogastroduodenoscopy, flexible, transoral; with biopsy, single or multiple Diagnosis Code(s): --- Professional --- K31.89, Other diseases of stomach and duodenum K22.89, Other specified disease of esophagus K20.0, Eosinophilic esophagitis CPT copyright 2021 [place] [employer]. All rights reserved. The codes documented in this report are preliminary and upon waiter/waitress take out review may be revised to meet current compliance requirements. Kenrick Cano MD 12/09/2023 11:30:14 AM This report has been signed electronically. Number of Addenda: 0 Note Initiated On: 12/09/2023 10:39 AM
--- NOTE | 2023-12-09 11:30 | OP.CCLET_ITS ---
12/09/2023 Alanis Batista Re : Upper GI endoscopy procedure for Sima Btaista This procedure was performed on November. My impressions and recommendations are as follows: Impressions : - Normal duodenal bulb, first portion of the duodenum and second portion of the duodenum. No specimens collected. - Erythematous mucosa in the antrum. Biopsied. - Z-line regular, 43 cm from the incisors. No specimens collected. - Esophageal mucosal changes were present. Findings are suggestive of inflammation. Biopsied. - Mucosal nodule found in the esophagus. Biopsied. - The examination was otherwise normal. Recommendations : - Discharge patient to home (via wheelchair). - Resume previous diet today. - Use Protonix (pantoprazole) 40 mg PO daily today. - Continue present medications. - No aspirin, ibuprofen, naproxen, or other non-steroidal anti-inflammatory drugs for 2 days after biopsy. My findings are described in the full procedure note, which is enclosed. If I can be of further assistance, please feel free to contact me at Doctor phone number(s): , Work: . Sincerely, Kenrick Cano MD 12/09/2023 11:30:14 AM This report has been signed electronically.
[2023-12-09 11:35] VITALS: BP 100/63; BP 121/83; PULSE 79; RESP 14; O2SAT 100
[2023-12-09 11:41] VITALS: BP 100/60; BP 121/83; PULSE 68; RESP 14; TEMP 36.7; O2SAT 100
[2023-12-09 11:50] VITALS: BP 121/83
== END 2023-12-09 12:15 | disposition home or self-care (01) ==
LOC: EN 09:20 → AC 09:20
PROVIDERS: Anesthesiology; PCP Physician Assistant; Referring Provider Physician Assistant; Visit Provider Surgery
PROC: 0DJ08ZZ Inspection of Upper Intestinal Tract, Via Natural or Artificial Opening Endoscopic (ICD-10-PCS; CPT 43235; principal; 2023-12-09 10:25)
DX: R13.10 Dysphagia, unspecified (principal); K20.0 Eosinophilic esophagitis; Z85.850 Personal history of malignant neoplasm of thyroid; K31.89 Other diseases of stomach and duodenum; K22.89 Other specified disease of esophagus; K29.50 Unspecified chronic gastritis without bleeding
CPT/HCPCS: 43239; 81025; 88305; 88342; J7120; J2405

== ENCOUNTER → 2024-09-04 | Outpatient (CLI) | payer BC, SELFPAY ==
--- NOTE | 2024-09-04 14:36 | US_ITS ---
PROCEDURE: THYROID REASON FOR EXAM: Thyroid cancer TECHNIQUE: Thyroid ultrasound COMPARISON: 04/21/2023 FINDINGS: Right thyroid bed: Several hypoechoic foci in the inferior pole of the right thyroid bed. Lesion 1: Solid hypoechoic nodule with smooth margins and peripheral vascularity measuring 1.0 x 0.5 x 0.4 cm. TI-RADS 4 Lesion 2: Solid hypoechoic nodule with smooth margins and peripheral vascularity measuring 2.2 x 1.4 x 1.4 cm. TI-RADS 4 Lesion 3: Solid hypoechoic nodule with smooth margins and peripheral vascularity measuring 1.4 x 1.1 x 1.0 cm. TI-RADS 4 Lesion 4: Solid hypoechoic nodule with smooth margins and peripheral vascularity measuring 0.9 x 0.7 x 0.6 cm. TI-RADS 4 Lesion 5: Solid hypoechoic nodule with smooth margins and peripheral vascularity measuring 0.7 x 0.8 x 0.5 cm. TI-RADS 4 Left thyroid lobe measures 6.4 x 2.5 x 2.3 cm Isthmus thickness is0.2 cm. Thyroid Size: Normal Background Echotexture: Normal Thyroid Nodules: Left thyroid nodule: Mixed hypoechoic nodule with irregular margins measuring 0.7 x 0.5 x 0.3 cm. TI-RADS 3 US/Thyroid IMPRESSION: 1. TI-RADS 4 nodules in the right thyroid bed status post right thyroidectomy. Recommend FNA 2. TI-RADS 3 left thyroid nodule. No recommendation at this time given size Reading Location: [facility]
== END | disposition home or self-care (01) ==
PROVIDERS: PCP Physician Assistant; Referring Provider Physician Assistant; Visit Provider Physician Assistant
DX: C73 Malignant neoplasm of thyroid gland (principal)
CPT/HCPCS: 76536

== ENCOUNTER → 2024-10-04 | Outpatient (CLI) | payer BC, SELFPAY ==
--- NOTE | 2024-10-04 13:30 | FLU_PTH ---
PATIENT: ZAC KEEN LOC: [facility] U#:[id number] AGE/SX: 39/F ROOM: RE10/04/[address]: Dr. Kenrick Cano MD : 1985 BED: DIS: 10/04/2024 SPEC #: [id number] RECD: 10/04/24 15:35 STATUS: AZRA JANAY #: [id number] FLAQUITO: 10/04/24 13:[address]: Kenrick Cano DEPT: CYTOLOGY RECD BY: Erwin Felton ENTERED: 10/05/24 07:58 SP TYPE: Fluid OTHR DR: ANIBAL Workman Tissues: A - Thyroid gland, NOS B - Thyroid gland, NOS Procedures: Special Stain Group II Cytospin Fluid Cytology Other HEADER OPERATION: Fine needle aspiration of right thyroid nodule x2 PRE-OP DIAGNOSIS: Right thyroid nodule TISSUE SUBMITTED: A- Right superior lateral thyroid nodule fluid and smears, B- Right inferior medial thyroid nodule fluid and smears DIAGNOSIS CYTOLOGY A. Right superior lateral thyroid nodule, cytology and cell block:Atypia of undetermined significanceFollicular cells present with nuclear grooves B. Right inferior medial thyroid nodule, cytology and cell block:Atypia of undetermined significanceFollicular cells showing nuclear crowding nuclear grooves and irregular nuclear contours (see comment) COMMENT This specimen will be sent for Afirma testing and the results will be reported separatelyJ Yahir IGNACIO, 10/10/2024 CYTOLOGY STUDY Slides are reviewed. CYTOLOGY GROSS A. Received is 30 ml of red-cloudy fluid labeled with the patient's name and and designated per the requisition as Right superior lateral thyroid nodule. Submitted for cytology preparation. B. Received is 30 ml of red-cloudy fluid labeled with the patient's name and and designated per the requisition as Right inferior medial thyroid nodule. Submitted for cytology preparation. Mr 10/05/2024 CPT: 45732 x2, TC:5 ADDENDUM ADDENDUM ADDENDUM ADDENDUM ADDENDUM ADDENDUM ADDENDUM ADDENDUM ADDENDUM 10/23/2024 09:24 ADDENDUM 11/30/2024 10:02 ADDENDUM 10/23/2024 09:24 ADDENDUM 10/23/2024 09:24 ADDENDUM 10/23/2024 09:24 ADDENDUM 10/23/2024 09:24 AFIRMA RESULTS REPORT - A RESULTS INTERPRETATION: The result of this 2.2 cm Greeley III nodule A is Afirma GSC suspicious which suggests a risk of cancer of approximately 50%. The risk of malignancy of a GSC suspicious Afirma XA negative sample remains approximately 50%. Clinical correlation and surgical resection should be considered. Please see complete report in e-chart or EMR This addendum is added to incorporate an outside pathology consultation report. The case was examined at [facility] by Dr. Suarez (#[id number]) and the following diagnosis was rendered. A. Right superior lateral thyroid nodule, fine needle aspiration: Atypia of undetermined significance (see comment). Very limited cellularity - predominantly blood. B. Right inferior medial thyroid nodule, fine needle aspiration: Atypia of undetermined significance (see comment). Limited cellularity. Cyst contents. COMMENT: Aspirates from both thyroid nodules are limited by low cellularity and air drying. Both show cytologic atypia which is more apparent in the sample from the right inferior medial thyroid FNA (part B). The atypical cells in this sample are present in the background of a cyst. Please see complete above mentioned consultation report in EMR
== END | disposition home or self-care (01) ==
LOC: LABSPEC 15:38
PROVIDERS: PCP Physician Assistant; Referring Provider Surgery; Visit Provider Surgery
DX: E04.2 Nontoxic multinodular goiter (principal)
CPT/HCPCS: 88108; 88161; 88313

== ENCOUNTER → 2024-10-20 | Outpatient (CLI) | payer BC, SELFPAY ==
--- NOTE | 2024-10-20 16:12 | US_ITS ---
EXAM: Ultrasound head/neck soft tissue CLINICAL HISTORY: Malignant neoplasm of thyroid status post right thyroid lobectomy. Study is for lymph node mapping. COMPARISON: Ultrasound thyroid of 09/04/2024. TECHNIQUE: Real-time grayscale and color ultrasound of the soft tissues of the right neck and left neck. FINDINGS: 7 lymph nodes are identified in the right and left neck. A zone 2 lymph node measures 2.3 cm length by 2.1 cm x 0.5 cm AP. A zone 3 lymph node measures 1.6 cm length by 0.4 cm x 0.2 cm AP a zone 6 A zone 6 lymph node measures 0.9 x 0.3 x 0.3. Another zone 6 lymph node measures 1.2 0.9 x 0.5 cm. In the left neck, a zone 1 lymph node measures 0.7 x 0.6 x 0.5 cm. This is a lymph node with a round shape. In zone 6, there is a 2.1 cm x 0.5 x 0.4 cm lymph node. Also in zone 6, a 1.0 cm x 0.8 x 0.5 cm lymph node is seen with slightly thickened cortex US/Head/Neck Soft Tissue IMPRESSION: Multiple right and left neck lymph nodes are identified with measurements and l ocation given above. Reading [facility]
== END | disposition home or self-care (01) ==
LOC: US 16:11
PROVIDERS: PCP Physician Assistant; Referring Provider Surgery; Visit Provider Surgery
DX: C73 Malignant neoplasm of thyroid gland (principal)
CPT/HCPCS: 76536

== ENCOUNTER 2024-10-26 08:27 | Day surgery (SDC) | payer BC, SELFPAY ==
[2024-10-26 08:53] VITALS: BP 111/78; PULSE 92; RESP 16; TEMP 36.8; O2SAT 99; BMI 24.8
--- NOTE | 2024-10-26 09:17 | PRE.ANES_ITS ---
ASA Classification* ASA Classification ASA Classification: 2 Assessment & Plan Anesthesia* Anesthesia Assessment Anesthesia Assessment: Discussed sedation and/or anesthesia options, risks, benefits, and alternatives with patient/parents/legal guardian/POA. Questions invited. The patient/parents/legal guardian/POA seems to understand and agrees to proceed with anesthesia plan. Reviewed the physical assessment, medical history, allergy history and patient home medications list prior to surgery/procedure/anesthetic and documented any changes. Performed airway and anesthesia risk assessments. Anesthesia Type Anesthesia Type: MAC History Source History Obtained from:: Patient and Chart Anesthesia Focused Assessment* Temperature: 98.2 F Pulse Rate: 92 Blood Pressure: 111/78 Respiratory Rate: 16 Pulse Ox: 99 Airway Assessment Mouth opens: >3 cm Mallampati Score: I Teeth Condition: Loose (Patient has a loose upper tooth #10. Rest are tight.) Neck Range of motion (ROM): Full ROM Focused Labs Anesthesia Preop lab: CBC CHEMISTRY TSH 2.33 uIU/mL (0.358-3.74) 04/21/23 13:27 COAG Urine Test Negative Negative 12/09/23 09:31 12/09/23 Pre-Assessment Diagnosis/Proposed Procedure Planned Operative Procedure(s): Esophagogastroduodenoscopy. 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 When Was Last Pacemaker Check QUESTION #4 FULL TEXT: You/Your Family Experience fever (hyperthermia) with Anesthesia Last Oral Intake Last Oral intake: Last Oral Intake NPO since 23:00 10/26/24 08:53 Meds taken in AM with sips of No 10/26/24 08:53 water? 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 Female Yes 10/23/24 08:58 HX of Motion Sickness No 10/23/24 08:58 HX of N/V After Surgery No 10/23/24 08:58 Non-Smoker Yes 10/23/24 08:58 Duration of Surgery greater No 10/23/24 08:58 than 60 minutes Number of Risk Factors 2 10/23/24 08:58 PONV Score Moderate Risk 10/23/24 08:58 Height & Weight Height & Weight: Anesthesia: Height & Weight Height 5 ft 7 in 10/26/24 08:53 Weight: 72.03 kg 10/26/24 08:53 Body Mass Index (BMI) 24.8 10/26/24 08:53 Respiratory Assessment Respiratory Assessment - supervising fire marshal: Respiratory Tract Infection Hx - supervising fire marshal Hx Respiratory Tract Infection No 10/23/24 08:58 STOP Sleep Apnea STOP Sleep Apnea - supervising fire marshal: STOP Sleep Apnea - supervising fire marshal Hx Hypertension No 10/23/24 08:58 Hx Sleep Apnea No 10/23/24 08:58 CPAP No 10/23/24 08:58 BIPAP Do you snore loudly (louder No 10/23/24 08:58 than talking or can be heard Do you often feel tired/ No 10/23/24 08:58 fatigued/ sleepy during daytime? Has anyone observed you stop No 10/23/24 08:58 breathing during sleep? STOP Results Negative 10/23/24 08:58 QUESTION #5 FULL TEXT : Do you snore loudly (louder than talking or can be heard through closed doors)? 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 Specify any problems Hx of Preganancy in last 3 No 10/23/24 08:58 Months Nurse Filling Out Transfusion VCHRISTIN 10/23/24 08:58 & Questions: Date: 10/23/24 10/23/24 08:58 Time: 08:59 10/23/24 08:58 Patient unable to answer at this time (ie. confused, unrespo /Reproduction History /Reproductive History - supervising fire marshal: /Reproductive Hx- supervising fire marshal Hx Now No 10/23/24 08:58 Gestational Age (in weeks): EDC: Hx Hx Para Hx Section SAB No 10/23/24 08:58 [facility] Medical History Thyroid cancer Wears contact lenses Alcohol use Gastric reflux Asthma Non-smoker Chest pain Thyroid nodule Acid reflux Home Medications ?Medication ?Instructions ?Recorded ?Last Taken ?Type multivitamin (Daily Multi-Vitamin 1 tab PO DAILY 05/0510/23/24 History tablet) hydroxyzine HCl 25 mg tablet 25 mg PO BID PRN anxiety 10/04/24 10/25/24 History calcium carbonate (Tums) 200 mg PO DAILY PRN dyspepsi a 10/26/24 Unknown History Allergy/AdvReac Type Severity Reaction Status Date / Time cefaclor (From Ceclor) Allergy Rash Verified 10/26/24 08:50 Family History Grandmother Cancer Thyroid disorder Surgical History History of esophagogastroduodenoscopy (EGD) History of lobectomy of thyroid Hx of oral surgery Hx of wisdom tooth extraction H/O section Social History Smoking Status: Never smoker alcohol intake: current alcohol intake frequency: a few times a month Review of Systems (Anesthesia) ROS Narrative System reviewed and no additional complaints, except as documented.
[2024-10-26 09:20] LABS: Internal QC Validated? YES +Cl - CLEAR BKGD; Pregnancy, Urine Negative Negative
[2024-10-26 09:24] VITALS: BP 111/78; PULSE 92; RESP 16; TEMP 36.8; O2SAT 99
--- NOTE | 2024-10-26 09:30 | EGD_PTH ---
PATIENT: ZAC KEEN LOC: [facility] U#:[id number] AGE/SX: 39/F ROOM: RE10/26/[address]: Dr. Kenrick Cano MD : 1985 BED: DIS: 10/26/2024 SPEC #: [id number] RECD: 10/26/24 13:43 STATUS: AZRA JANAY #: [id number] FLAQUITO: 10/26/24 09:[address]: Kenrick Cano DEPT: SURGICAL PATHOLOGY RECD BY: Artur Wilkes ENTERED: 10/26/24 13:43 SP TYPE: EGD BIOPSY OTHR DR: ANIBAL Workman Tissues: A - Duodenum, NOS B - Gastric mucous membrane C - Esophagus, NOS D - Esophagus, NOS Procedures: Immunohistochemical Stains Surgery Specimen Level IV HEADER OPERATION: EGD, biopsy, electrohemostasis PRE-OP DIAGNOSIS: Eosinophilic esophagitis, dysphagia, thyroid cancer TISSUE SUBMITTED: A- Duodenal bulb nodule mucosa biopsy, B- Antrum biopsy,C- Distal esophageal plaque biopsy, D- Mid esophageal plaque biopsy MICROSCOPIC DIAGNOSIS A. Small intestine, duodenum bulb nodule, biopsy: * Benign small bowel mucosa with prominent Fernando's glands B. Stomach, antrum, biopsy: * Antral mucosa with mild chronic inflammation * The immunostain for Helicobacter pylori organisms is negative C. Distal esophagus, plaque, biopsy: * Benign squamous epithelium with increased eosinophils, >20/HPF (See comment) D. Mid esophagus, plaque, biopsy: * Benign squamous epithelium with increased eosinophils, >20/HPF (See comment) COMMENT In part C and D, the findings are compatible with eosinophilic esophagitis MICROSCOPIC DESCRIPTION Slides are reviewed. These tests were developed and their performance characteristics determined by [facility]. They may not have been cleared or approved by the U.S. Food and Drug Administration. The FDA has determined that such clearance or approval is not necessary. The above immunohistochemical/dualISH markers are ordered and reviewed by the Pathologist. GROSS DESCRIPTION A. Received in formalin in a container labeled with the patient's name, date of , and duodenal bulb nodule mucosa biopsy is a 0.4 x 0.3 x 0.2 cm fragment of judge-pink mucosal tissue. Submitted in toto in A1. B. Received in formalin in a container labeled with the patient's name, date of , and antrum biopsy are 2 judge-pink fragments of mucosal tissue measuring 0.2 x 0.2 x 0.2 cm and 0.4 x 0.4 x 0.2 cm. Submitted in toto in B1. C. Received in formalin in a container labeled with the patient's name, date of , and distal esophageal plaque biopsy are multiple jugde-pink fragments of soft tissue measuring 0.7 x 0.7 x 0.2 cm in aggregate. Submitted in toto in C1. D. Received in formalin in a container labeled with the patient's name, date of , and mid esophageal plaque biopsy are multiple judge-pink fragments of soft tissue measuring 1.1 x 0.6 x 0.2 cm in aggregate. Submitted in toto in D1. [facility] 10/27/2024 CPT:28472h8,28185
--- NOTE | 2024-10-26 09:31 | PCM.HP.BLA ---
History and Physical Date of Admission: 10/26/24 MR#: [id number] Acct: [id number] Name: ZAC KEEN Rep #: [id number] : 1985 Provider: Dr. 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: No Is patient in pain?: No Allergies cefaclor [From Ceclor] Allergy (Verified 09/02/23 08:14) Rash Medications amoxicillin 500 mg tablet 500 mg PO TID 05/05/23 [History Confirmed 09/02/23] multivitamin (Daily Multi-Vitamin tablet) 1 tab PO DAILY 05/05/23 [History Confirmed 09/02/23] PFSH Medical History Acid reflux Alcohol use Asthma Chest pain Gastric reflux Non-smoker Thyroid cancer Thyroid nodule Wears contact lenses Surgical History H/O section History of lobectomy of thyroid Hx of oral surgery Hx of wisdom tooth extraction Family History Grandmother Cancer Thyroid disorder Social History Smoking Status: Never smoker alcohol intake: current alcohol intake frequency: a few times a month HPI HPI HPI: Patient presents for routine surveillance visit following right thyroid lobectomy on 06/23/2021 with postop diagnosis of PTC?follicular variant 1.8 cm. Her last visit was 06/24/2022. In the interim she underwent diagnostic EGD for complaints of reflux and dysphagia. At that time she was diagnosed with eosinophilic esophagitis and prescribed oral budesonide. Fortunately this did result in significant improvement of her symptoms to the point that she states today she is had no swallowing difficulty and no reflux. She is not presently on any antacids. Concerning her thyroid surveillance, she also denies awareness of any new lumps within her neck and reports that her energy level remains good. Below is recapitulated from patient's prior visit for ease of review: She presents with her to today's visit. She denies any new concerns from her neck. She denies any low energy or metabolic concerns. She states she is just interested in following up on her recent results. ROS General General: No weight change, appetite, fatigue, colon cancer, breast cancer or weakness HEENT HEENT: No difficulty swallowing, eye injury, eye surgery, swollen glands or hoarseness Endo Endocrine: No thyroid disease, diabetes mellitus, thyroid cancer, Hair loss, heat intolerance or cold intolerance Skin Skin: No rash or changing moles Breast Breast: No left breast lump, right breast lump, nipple discharge, breast pain, abnormal mammogram, abnormal US or breast enlargement Musc Musculoskeletal: No back problems, arthritis, rheumatoid arthritis, gout or joint pain Cardio Cardiovascular: No murmur, pacemaker, heart disease, atrial fibrillation, high blood pressure, heart attack, heart stent, palpitations, shortness of breat with exertion or chest pain Psych Psychiatric: No depression, anxiety or hearing voices Resp Respiratory: No shortness of breath, No sleep apnea, No cough, No COPD, No asthma, No emphysema and No wheezing Gastro Gastrointestinal: No abdominal pain, No nausea or vomiting, No diarrhea, No constipation, No blood in stool, Yes acid reflux, No hemorrhoids, No ulcers, No gallbladder problem and No black,tarry stools Claude Hematologic: No blood thinners, No blood disorders, No bleeding, No anemia and No blood clots Neuro Neurologic: No system reviewed and no additional complaints, except as documented, No as per HPI, No abnormal gait, No abnormal hearing, No abnormal movements, No abnormal speech, No behavioral changes, No burning sensations, No confusion, No convulsions, No disequilibrium, No dizziness, No localized weakness, No frequent falls, No headache(s), No lack of coordination, No loss of vision, No memory loss, No numbness, No other visual disturbances, No radicular pain, No restless legs, No sensory deficit, No syncope, No tingling, No tremor(s), No weakness and No other Exam Const General: cooperative Orientation: alert, awake and oriented x3 Neck Other: Well-healed transverse cervical incision without any underlying nodularity. No lymphadenopathy appreciated. Assessment and Plan Assessment and Plan (1) Eosinophilic esophagitis: Status: Acute Comment: Patient states that all of her symptoms resolved as of eosinophilic esophagitis are now gone. I have informed her that some guidelines would suggest she needs a repeat EGD with biopsy to confirm and a microscopic level that this issue is fully resolved. She expresses that she understands this but wishes to simply keep watch of her symptoms and pursue follow-up endoscopy if there is a recurrence of symptoms. Plan: ? Watchful waiting for now per patient's preference. She will notify us if she has any recurrence of symptoms (2) Dysphagia: Status: Acute Comment: Resolved (3) Thyroid cancer: Status: Acute Comment: 36-year-old female status post right thyroid lobectomy with isthmusectomy 06/23/2021 for a sonographically?suspicious right thyroid nodule. 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 The additional thyroid cancer summary findings were also reviewed and are favorable with no evidence of lymph node metastasis, lymphatic invasion, angioinvasion and the margins were clear. Greatest diameter on the tumor was 1.8 cm. This suggest this is a low risk thyroid cancer. She returns today for a 6-month surveillance visit. She, again, denies any new developments. Again, there are no suspicious findings with clinical exam. We reviewed both her thyroid functions (which were normal) and her surveillance thyroid ultrasound from 06/19/2022. This latter study showed a benign-appearing 3 mm cystic nodule of the left thyroid lobe. No other additional suspicious lymph nodes were noted. Taken alongside her reassuring physical exam I have recommended ongoing surveillance. Would plan for follow-up thyroid functions, surveillance thyroid ultrasound, and clinic visit in 12 months. Patient is now 38 years old and presents for yearly surveillance of her thyroid cancer. Her exam is completely benign and she denies any concerning symptoms. I have recommended that we continue follow-up for 5 years postoperatively to surveilled her for any recurrences. She is happy with this plan Plan: ? Follow-up clinic visit in 1 year (patient placed in the recall system) I have examined the patient the following changes are noted: Patient confirms that she has ongoing swallowing difficulty even when she is not necessarily ingesting things. She states that this is more prevalent in the mornings. As can be noted from subsequent encounters in the EMR patient is being actively investigated for recurrent thyroid cancer after finding nodularity in her right thyroid bed. She is being referred to [facility] for further evaluation of this issue and has been informed that this certainly could be contributing to her symptoms. Yet given her history of eosinophilic esophagitis without follow-up endoscopy I recommended follow-up EGD with biopsy. She is prepared undergo this procedure today. Expectations were reviewed and all questions answered. Proceed to endoscopy suite as planned.
[2024-10-26 10:20] VITALS: BP 111/78; BP 99/54; PULSE 75; RESP 16; TEMP 36.3; O2SAT 96
--- NOTE | 2024-10-26 10:22 | OP.EGD_ITS ---
Patient Name: Sima Caballero Procedure Date: 10/26/2024 9:27 AM Date of : 1985 Age: 39 Procedure: Upper GI endoscopy Indications: Dysphagia, Follow-up of eosinophilic esophagitis Providers: Kenrick Cano MD Referring MD: Alanis Batista Medicines: See the Anesthesia note for documentation of the administered medications Patient Profile: Refer to note in patient chart for documentation of history and physical. Complications: No immediate complications. Estimated blood loss: Minimal. Procedure: Pre-Anesthesia Assessment: - The heart rate, respiratory rate, oxygen saturations, blood pressure, adequacy of pulmonary ventilation, and response to care were monitored throughout the procedure. After obtaining informed consent, the endoscope was passed under direct vision. Throughout the procedure, the patient's blood pressure, pulse, and oxygen saturations were monitored continuously. The gastroscope was introduced through the mouth, and advanced to the second part of duodenum. The upper GI endoscopy was accomplished without difficulty. The patient tolerated the procedure well. Scope In: 9:43:39 AM Scope Out: 10:12:13 AM Total Procedure Duration Time 0 hours 28 minutes 34 seconds Findings: Localized nodular mucosa was found in the duodenal bulb. Biopsies were taken with a cold forceps for histology. Estimated blood loss was minimal. Localized mild inflammation characterized by erythema was found in the gastric antrum. Biopsies were taken with a cold forceps for histology. Estimated blood loss was minimal. The cardia and gastric fundus were normal on retroflexion. The Z-line was regular and was found 41 cm from the incisors. No biopsies or other specimens were collected for this exam. Multiple 3 to 7 mm plaques were found in the middle third of the esophagus and in the lower third of the esophagus. Biopsies were taken with a cold forceps for histology. Estimated blood loss: 3 mL requiring treatment with coagulation. The exam was otherwise without abnormality. Impression: - Nodular mucosa in the duodenal bulb. Biopsied. - Gastritis. Biopsied. - Z-line regular, 41 cm from the incisors. No specimens collected. 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 Biopsied. - The examination was otherwise normal. Recommendation: - Discharge patient to home (via wheelchair). - Soft diet today. - No aspirin, ibuprofen, naproxen, or other non-steroidal anti-inflammatory drugs for 2 days after biopsy. - Await pathology results. Procedure Code(s): --- Professional --- 33355, Esophagogastroduodenoscopy, flexible, transoral; with biopsy, single or multiple Diagnosis Code(s): --- Professional --- K31.89, Other diseases of stomach and duodenum K29.70, Gastritis, unspecified, without bleeding K22.89, Other specified disease of esophagus R13.10, Dysphagia, unspecified K20.0, Eosinophilic esophagitis CPT copyright 2021 [employer]. All rights reserved. The codes documented in this report are preliminary and upon field examiner review may be revised to meet current compliance requirements. Kenrick Cano MD 10/26/2024 10:21:30 AM This report has been signed electronically. Number of Addenda: 0 Note Initiated On: 10/26/2024 9:27 AM
--- NOTE | 2024-10-26 10:22 | OP.CCLET_ITS ---
10/26/2024 Alanis Batista Re : Upper GI endoscopy procedure for Sima Batista This procedure was performed on October. My impressions and recommendations are as follows: Impressions : - Nodular mucosa in the duodenal bulb. Biopsied. - Gastritis. Biopsied. - Z-line regular, 41 cm from the incisors. No specimens collected. 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 Biopsied. - The examination was otherwise normal. Recommendations : - Discharge patient to home (via wheelchair). - Soft diet today. - No aspirin, ibuprofen, naproxen, or other non-steroidal anti-inflammatory drugs for 2 days after biopsy. - Await pathology results. My findings are described in the full procedure note, which is enclosed. If I can be of further assistance, please feel free to contact me at Doctor phone number(s): , Work: . Sincerely, Kenrick Cano MD 10/26/2024 10:21:30 AM This report has been signed electronically.
[2024-10-26 10:25] VITALS: BP 111/78; BP 90/63; PULSE 86; RESP 16; O2SAT 96
--- NOTE | 2024-10-26 10:29 | PCM.POST.ANE ---
Anesthesia: Postop Eval I Current Vital Signs Temperature: 97.9 F Pulse Rate: 79 Blood Pressure: 99/54 Respiratory Rate: 16 Pulse Ox: 97 Oxygen Delivery Method: Room Air Assessment Airway patent: Yes Spontaneous unlabored respirations: Yes Mental status: Awake and Calm nausea: No Vomiting: No Anesthesia Complication: No Fluid Hydration Crystalloid volume administer (ml): 75 Total IV fluid infused: 75 Progress Note Anesthesia document: Postop Eval 1 completed: Yes
[2024-10-26 10:30] VITALS: BP 111/78; BP 97/61; BP 99/54; PULSE 79; PULSE 85; RESP 16; TEMP 36.5; TEMP 36.6; O2SAT 97
[2024-10-26 10:47] VITALS: BP 111/78
--- NOTE | 2024-10-26 10:51 | PCM.POSTANE2 ---
Anesthesia Postop Eval I Sum Postop Eval Completion status Anesthesia document: Postop Eval 1 completed: Yes Anesthesia Postop Eval I Summary Anesthesia Postop Eval I Summary: Anesthesia Postop Eval I: Assessment Summary Airway patent Yes 10/26/24 10:30 [email or web address] Spontaneous unlabored Yes 10/26/24 10:30 [email or web address] respirations Mental status Awake,Calm 10/26/24 10:30 [email or web address] nausea No 10/26/24 10:30 [email or web address] Vomiting No 10/26/24 10:30 [email or web address] Anesthesia Postop Eval I: Fluid Summary Crystalloid volume administer 75 10/26/24 10:30 [email or web address] (ml) Colloids volume administered ( ml) Blood Product volume administered (ml) Total IV fluid infused 75 10/26/24 10:30 [email or web address] Anesthesia Postop Eval I: Summary Notes Anesthesia Complication No 10/26/24 10:30 [email or web address] Anesthesia Complication Comment: Post-operative progress note Anesthesia: Postop Eval II Evaluation Mental status: Awake and Calm Pain Level: 0 nausea: No Vomiting: No Complications Anesthesia Complication: No
== END 2024-10-26 11:08 | disposition home or self-care (01) ==
LOC: EN 08:27 → AC 08:29
PROVIDERS: Anesthesiology; PCP Physician Assistant; Referring Provider Physician Assistant; Visit Provider Surgery
PROC: 0DJ08ZZ Inspection of Upper Intestinal Tract, Via Natural or Artificial Opening Endoscopic (ICD-10-PCS; CPT 43235; principal; 2024-10-26 09:25)
DX: R13.10 Dysphagia, unspecified (principal); K22.89 Other specified disease of esophagus; K31.89 Other diseases of stomach and duodenum; K29.70 Gastritis, unspecified, without bleeding; K20.0 Eosinophilic esophagitis; Z85.850 Personal history of malignant neoplasm of thyroid
CPT/HCPCS: 43239; 81025; 88305; 88342; C1889; A4216; J2405

== ENCOUNTER 2025-03-01 06:38 | Day surgery (SDC) | payer BC, SELFPAY ==
[2025-03-01] VITALS (9 sets, daily range): BP systolic 79–110; BP diastolic 54–82; PULSE 66–78; RESP 16; TEMP 36.2–36.6; O2SAT 93–100; BMI 24.5
--- OUTSIDE RECORDS SUMMARY | 2025-03-01 06:42 | XMS RPT_ITS | CCD ---
Author Organization [facility] Care Team Providers Care Umbrella Tipper Hand Name Role Phone ALANIS BATISTA Admitting Unavailable ALANIS BATISTA Attending Unavailable ALANIS BATISTA Consulting Unavailable ALANIS BATISTA Primary Care Unavailable PROVIDER, UNKNOWN Consulting Unavailable VACCARIELLO, ALTA Consulting Unavailable FATOU, DR MINH Yip Primary Care Unavaila ble FATOU, DR MINH Yip Admitting Unavaila ble FATOU, DR MINH Yip Attending Unavaila ble PROVIDER, UNKNOWN Consulting Unavailable PROVIDER, UNKNOWN Consulting Unavailable PROVIDER, UNKNOWN Consulting Unavailable VACCARIELLO, ALTA Consulting Unavailable FATOU, DR MINH Yip Attending Unavaila ble FATOU, DR MINH Yip Primary Care Unavaila ble FATOU, DR MINH Yip Admitting Unavaila ble PROVIDER, UNKNOWN Consulting Unavailable PROVIDER, UNKNOWN Consulting Unavailable PROVIDER, UNKNOWN Consulting Unavailable VACCARIELLO, ALTA Consulting Unavailable FATOU, DR MINH Yip Primary Care Unavaila ble FATOU, DR MINH Yip Admitting Unavaila ble FATOU, DR MINH Yip Attending Unavaila ble PROVIDER, UNKNOWN Consulting Unavailable PROVIDER, UNKNOWN Consulting Unavailable PROVIDER, UNKNOWN Consulting Unavailable ANIBAL Blanc Primary Care Provider [phone] ANIBAL Blanc Referring Provider Dr. David Cano Attending Provider Dr. David Cano Other Provider Alanis Batista PA-C Unavailable Alanis Batista PA-C Unavailable General Surgery Provider Unavailable Unavail able [facility] Unavailable Naheed Her LPN Unavailable Sarita Chavez PA-C Unavailable Supriya Stratton PA-C Unavailable Rickey SHEPPARD, Gregg Yip Unavailable Manny FITNESS TEACHER, Ann Unavailable Unavailable Skylar BURDICK, Supriya Clements Unavailable Unavaila ble Gabbi FITNESS TEACHER, Wendy Unavailable Unavailable Zay BURDICK, Juana Unavailable Hector BURDICK, Jessica Carbone Unavailable Unavailable Lamas FITNESS TEACHER, June Unavailable Unavailable Earline FITNESS TEACHER, Juliet M Unavailable Unavailab domonique Morgan MA, Ann Unavailable Unavailable Jodi IGNACIO, Alta Clements Unavailable Vess FITNESS TEACHER, Katarinaphi Garcia Unavailable Unavailable Wengerd FITNESS TEACHER, Anabel Unavailable Unavailabl e Unavailable Unavailable [facility] Unavailable [facility] Attending Unavailable Batista PA, Alanis Primary Care Provider Lester BARNETT, Alanis Attending Provider Alanis Blanc Referring Provider Dr. David Cano MD Attending Provider Dr. David Cano MD Referring Provider Yahir IGNACIO, Dr. Mustafa Attending Provider Yahir IGNACIO, Dr. Mustafa Referring Provider Jerome IGNACIO, Dr. Choudhary Other Provider [phone] Unavailable Primary Care Provider Unavailabl e Batista, Alanis J Primary Care Provider SIPERSTEIN, JEYSON Admitting Unavailable SIPERSTEIN, JEYSON Attending Unavailable BATISTA, ALANIS J Primary Care Unavailable SIPERSTEIN, JEYSON Referring Unavailable SIPERSTEIN, JEYSON Attending Unavailable BATISTA, ALANIS J Primary Care Unavailable BOBBI DE LA PAZ Attending Unavailable SIPERSTEIN, JEYSON Referring Unavailable BATISTA, ALANIS J Primary Care Unavailable JAYLA CARR Attending Unavailable BATISTA, ALANIS J Primary Care Unavailable SIPERSTEIN, JEYSON Referring Unavailable BATISTA, ALANIS J Primary Care Unavailable David Cano Referring Unavailable Lester BARNETT, Alanis Primary Care Unavailable David Cano Attending Unavailable David Cano Referring Unavailable Batista PA, Alanis Primary Care Unavailable David Cano Attending Unavailable Batista PA, Alanis Primary Care Unavailable Ramsey Sinclair Attending Unavailable Ramsey Sinclair Referring Unavailable David Cano Consulting Unavailable Batista PA, Alanis Referring Unavailable Batista PA, Alanis Primary Care Unavailable David Cano Attending Unavailable Batista PA, Alanis Primary Care Unavailable Batista PA, Alanis Referring Unavailable David Cano Attending Unavailable Jerome, David Attending Unavailable Batista PA, Alanis Primary Care Unavailable Batista PA, Alanis Referring Unavailable David Cano Attending Unavailable Batista PA, Alanis Referring Unavailable Batista PA, Alanis Primary Care Unavailable Batista PA, Alanis Primary Care Unavailable Batista PA, Alanis Attending Unavailable Batista PA, Alanis Referring Unavailable Allergies Allergy Classification Reported Allergen(s) Allergy Type Date of Onset Reaction(s) Facility (1 source) Cefaclor Drug Allergy [facility] Repository (20 sources) Cefaclor; Translations: [CEFACLOR] Drug Allergy 05-13-2023 Rash [facility] (1 source) Cefaclor Drug Allergy 02-27-2025 [facility] Repository Medications Current Medications Medication Drug Class(es) Dates Sig (Normalized) Sig (Original) calcium carbonate 500 mg chewable tablet (9 sources) Start: 01-12-2025 take 500 mg by mouth every hour as needed calcium carbonate (TUMS) 500 mg chew Take 1 tablet by mouth every hour as needed (mouth or hand numbness or tingling). 01/12/2025 Active Start: 10-26-2024 take 1 tablet by claudette th once daily as needed Calcium Carbonate (Tums) 200 mg calcium (500 mg) tablet,chewable Active 200 mg PO DAILY as needed for dyspepsia October 26, 2024 12:00am calcium carbonate 1250 mg / cholecalciferol 200 unt oral tablet (8 sources) Vitamin D Start: 01-12-2025 take 1 tablet by mouth three times daily olqyyxg-rashonnyi-sgthmhz D3 500 mg-5 mcg (200 unit) per tablet Take 1 tablet by mouth three times a day. 01/12/2025 Active hydrOXYzine hydrochloride 25 mg oral tablet (20 sources) Antihistamine Start: 01-24-2025 hydrOXYzine HCL 25 mg tablet ; 1 Tab every 8 hours as needed for anxiety for 0 days Quantity: 90 {Tablet} Refills: 1 Ordered: 24-Jan-2025 VALARIE Batista Start: 24-Jan-2025 Comments: Medication taken as needed. Start: 10-04-2024 take 1 tablet by claudette th twice daily as needed for anxiety Hydroxyzine Hcl 25 mg tablet Active 25 mg PO TWICE A DAY as needed for anxiety October 04, 2024 12:00am Start: 07-24-2024 hydrOXYzine HC L 25 mg tablet ; 1 Tab every 8 hours as needed for anxiety for 0 days Quantity: 90 {Tablet} Refills: 1 Ordered: 24-Jul-2024 VALARIE Batista Start: 24-Jul-2024 Comments: Medication taken as needed. Start: 01-19-2024 hydrOXYzine HC L 25 mg tablet ; 1 Tab every 8 hours as needed for anxiety for 0 days Quantity: 90 {Tablet} Refills: 1 Ordered: 19-Jan-2024 VALARIE Batista Start: 19-Jan-2024 Comments: Medication taken as needed. Start: 10-19-2023 hydrOXYzine HC L 25 mg tablet ; 1 Tab every 8 hours as needed for anxiety for 0 days Quantity: 30 {Tablet} Refills: 2 Ordered: 19-Oct-2023 MD Navi Wolff Start: 19-Oct-2023 Comments: Medication taken as needed. Start: 09-06-2023 hydrOXYzine HC L 25 mg tablet ; 1 Tab every 8 hours as needed for anxiety for 0 days Quantity: 30 {Tablet} Refills: 2 Ordered: 06-Sep-2023 MD Navi Wolff Start: 06-Sep-2023 Comments: Medication taken as needed. Start: 06-29-2023 hydrOXYzine HC L 25 mg tablet ; 1 Tab every 8 hours as needed for anxiety for 0 days Quantity: 30 {Tablet} Refills: 2 Ordered: 29-Jun-2023 VALARIE Batista Start: 29-Jun-2023 Comments: Medication taken as needed. take 1 tablet by claudette th once daily hydrOXYzine HCl (ATARAX) 25 mg tablet Take 25 mg by mouth once daily. Active Comment on above: Medication taken as needed. levothyroxine sodium 0.112 mg oral tablet (16 sources) l-Thyroxine Start: End: take 1 tablet by mouth once daily levothyroxine (SYNTHROID) 112 mcg tablet Take 1 tablet by mouth once daily. 90 tablet 3 02/13/2025 Active Start: 12-06-2024 take 1 tablet by claudette th once daily levothyroxine (SYNTHROID) 88 mcg tablet Take 1 tablet by mouth once daily. 90 tablet 3 12/06/2024 Active Multivitamin (Daily Multi-Vitamin) tablet (4 sources) Start: 05-05-2023 Multivitamin ( Daily Multi-Vitamin) tablet Active 1 {tbl} PO DAILY May 05, 2023 12:00am Start: 05-05-2023 take 1 tablet by claudette th once daily Multivitamin (Daily Multi-Vitamin) tablet Active 1 TABLET PO DAILY May 05, 2023 12:00am multivitamin tablet (10 sources) multivitamin tab let ; daily pantoprazole 20 mg delayed release oral tablet (12 sources) Proton Pump Inhibitor Start: 08-30-2024 pantoprazole 20 mg tablet,delayed release ; 1 (one) tablet 30-60 minutes before first meal of day for 0 days Quantity: 30 {Tablet} Refills: 0 Ordered: 30-Aug-2024 VALARIE Batista Start: 30-Aug-2024 Start: 12-09-2023 End: 10-04-2024 take 1 tablet by mouth once daily Pantoprazole 40 mg tablet,delayed release (DR/EC) Discontinued 40 mg PO DAILY December 09, 2023 12:00am October 04, 2024 1:17pm Completed/Discontinued Medications Medication Drug Class(es) Dates Sig (Normalized) Sig (Original) amoxicillin 500 mg oral tablet (4 sources) Penicillin-class Antibacterial Start: 05-05-2023 End: 12-06-2023 take 1 tablet by mouth three times daily Amoxicillin 500 mg tablet Discontinued 500 mg PO THREE TIMES A DAY May 05, 2023 12:00am December 06, 2023 2:16pm amoxicillin 875 mg / clavulanate 125 mg oral tablet (20 sources) Penicillin-class Antibacterial Start: 12-15-2016 End: 12-25-2016 take 1 tablet by mouth three times daily Amoxicillin-Pot Clavulanate 875-125 MG Oral Tablet ; 1 (one) Tablet three times daily for 10 days Quantity: 30 {Tablet} Refills: 0 Ordered: 15-Dec-2016 JAVAD Her Start: 15-Dec-2016 End: 25-Dec-2016 Status: Inactive azithromycin 250 mg oral tablet (20 sources) Macrolide Antimicrobial Start: 09-01-2021 End: 11-25-2021 Zithromax Z-Jerry 250 MG Oral Tablet ; 2 (two) Tablet today and then 1 tablet daily x 4 days for 0 days Quantity: 1 {Packet} Refills: 0 Ordered: 25-Nov-2021 JAVAD Lamas Start: 01-Sep-2021 End: 25-Nov-2021 Status: Inactive benzonatate 100 mg oral capsule (20 sources) Non-narcotic Antitussive Start: 11-25-2021 End: 12-10-2021 take 1 capsule by mouth three times daily as needed Tessalon Perles 100 MG Oral Capsule ; 1 (one) capsule three times daily as needed for cough for 0 days Quantity: 30 {Capsule} Refills: 0 Ordered: 10-Dec-2021 JAVAD Her Start: 25-Nov-2021 End: 10-Dec-2021 Status: Inactive Comments: Medication taken as needed. swallow whole Comment on above: Medication taken as needed. swallow whole budesonide 0.25 mg/ml inhalation suspension (20 sources) Corticosteroid Start: 12-27-2023 End: 03-20-2024 take 2 mg by inhalation twice daily Budesonide 0.5 mg/2 mL suspension for nebulization Discontinued 0.5 mg INHALATION TWICE A DAY [id number] December 27, 2023 12:00am March 19, 2024 12:00am March 20, 2024 12:04am Take 2mg BID daily for 12 weeks Start: 05-21-2023 End: 08-13-2023 take 1 dose by inhalation twice daily Budesonide 0.5 mg/2 mL suspension for nebulization Discontinued 0.5 mg INHALATION TWICE A DAY [id number] May 21, 2023 12:00am August 12, 2023 1:00am August 13, 2023 1:05am Please arrange for full dose of 2 mg twice daily to be taken orally budesonide 200 m cg/actuation breath activated powder inhaler ; 2m two times daily (200 mcg/actuat) Status: Inactive take 2 mL by mouth in the mornin g BUDESONIDE ORAL Take by mouth. Pt uses Liquid 2ml in Am and 2ml in pm Active Budesonide 2 mg/10 mL suspension in packet (3 sources) Start: 12-23-2023 End: 12-23-2023 take 1 mL by mouth twice daily in the morning Budesonide 2 mg/10 mL suspension in packet Discontinued 10 mL PO TWICE A DAY [id number] December 23, 2023 12:00am March 15, 2024 12:00am December 23, 2023 9:16am administer in the morning and evening cephalexin 500 mg oral capsule (20 sources) Cephalosporin Antibacterial Start: 08-15-2017 End: 05-03-2018 take 1 capsule by mouth three times daily Cephalexin 500 MG Oral Capsule ; 1 (one) Capsule tid for 0 days Quantity: 30 {Capsule} Refills: 0 Ordered: 03-May-2018 JAVAD Her Start: 15-Aug-2017 End: 03-May-2018 Status: Inactive clobetasol propionate 0.0005 mg/mg topical ointment (20 sources) Corticosteroid Start: 03-06-2020 End: 08-19-2020 Clobetasol Propionate 0.05 % External Ointment ; 1 (one) Application twice daily for 0 days Quantity: 45 {Gram} Refills: 0 Ordered: 19-Aug-2020 HEAVENLY Cheng Start: 06-Mar-2020 End: 19-Aug-2020 Status: Inactive Levonorgestrel-Et hinyl Estrad (20 sources) Progestin, Estrogen, Progestin-containing Intrauterine Device Start: 10-14-2021 End: 06-24-2022 Levonorgestrel-Eth inyl Estrad 0.1-20 mg-mcg tablet Discontinued 1 {tbl} PO October 14, 2021 12:00am June 24, 2022 2:43pm Start: 10-14-2021 End: 06-24-2022 Levonorgestrel-Ethinyl Estra d Discontinued 1 TABLET PO October 14, 2021 12:00am June 24, 2022 2:43pm Start: 06-17-2021 End: 04-28-2022 take 1 tablet by mouth once daily Aviane 0.1-20 MG-MCG Oral Tablet ; 1 (one) Tablet daily for 0 days Quantity: 3 {Packet} Refills: 4 Ordered: 28-Apr-2022 JAVAD Seo Start: 17-Jun-2021 End: 28-Apr-2022 Status: Inactive Ethinyl Estradiol / norgestimate (20 sources) Progestin, Estrogen Start: 06-09-2021 End: 06-17-2021 take 1 tablet by mouth once daily Sprintec 28 0.25-35 MG-MCG Oral Tablet ; 1 (one) Tablet daily for 0 days Quantity: 3 {Packet} Refills: 3 Ordered: 17-Jun-2021 VALARIE Batista Start: 09-Jun-2021 End: 17-Jun-2021 Status: Inactive Start: 06-02-2021 End: 06-24-2022 Norgestimate-Ethinyl Estradi ol (Sprintec (28)) 0.25-35 mg-mcg tablet Discontinued 1 {tbl} PO DAILY June 02, 2021 1:00am June 24, 2022 2:43pm Start: 06-02-2021 End: 06-24-2022 take 1 tablet by mouth once daily Norgestimate-Ethinyl Estradiol (Sprintec (28)) 0.25-35 mg-mcg tablet Discontinued 1 TABLET PO DAILY June 02, 2021 1:00am June 24, 2022 2:43pm fluticasone propionate 0.05 mg/actuat metered dose nasal spray (20 sources) Corticosteroid Start: 11-02-2022 End: 08-30-2024 take 1 spray(s) nasal route twice daily Children's Flonase Allergy Relief 50 mcg/actuation nasal spray,susp ; 1 (one) Dutton in each nostril BID for 0 days Quantity: 1 {Applicator} Refills: 0 Ordered: 30-Aug-2024 JAVAD Patten Start: 02-Nov-2022 End: 30-Aug-2024 Status: Inactive Start: 11-02-2022 take 1 spray(s) nasa l route twice daily Children's Flonase Allergy Relief 50 mcg/actuation nasal spray,susp ; 1 (one) Dutton in each nostril BID for 0 days Quantity: 1 {Applicator} Refills: 0 Ordered: 02-Nov-2022 JAVAD Patten Start: 02-Nov-2022 ketoconazole 20 mg/ml topical cream (20 sources) Azole Antifungal Start: 06-13-2019 End: 06-27-2019 Ketoconazole 2 % External Cream ; 1 (one) application(s) three times daily for 14 days Quantity: 60 {Gram} Refills: 0 Ordered: 13-Jun-2019 VALARIE Stratton Start: 13-Jun-2019 End: 27-Jun-2019 Status: Inactive methylPREDNISolone 4 mg oral tablet (20 sources) Corticosteroid Start: 05-17-2019 End: 05-23-2019 Medrol 4 MG Oral Tablet Therapy Pack ; 1 Tab as directed for 6 days Quantity: 1 {Dose_Pack} Refills: 0 Ordered: 17-May-2019 VALARIE Stratton Start: 17-May-2019 End: 23-May-2019 Status: Inactive naproxen sodium 220 mg oral capsule (20 sources) Nonsteroidal Anti-inflammatory Drug take 1 mg by mouth once NAPROXEN SODIUM, 220MG (Oral Capsule) ; 1 month (220 MG) Status: Inactive nitrofurantoin, macrocrystals 25 mg / nitrofurantoin, monohydrate 75 mg oral capsule (20 sources) Nitrofuran Antibacterial Start: 08-10-2016 End: 09-18-2016 take 1 capsule by mouth twice daily Macrobid 100 MG Oral Capsule ; 1 (one) Capsule Capsule two times daily for 0 days Quantity: 13 {Capsule} Refills: 0 Ordered: 18-Sep-2016 JAVAD Her Start: 10-Aug-2016 End: 18-Sep-2016 Status: Inactive omeprazole 20 mg delayed release oral capsule (20 sources) Proton Pump Inhibitor Start: 11-10-2022 End: 07-14-2023 omeprazole 20 mg capsule,delayed release ; 1 (one) Capsule daily for 0 days Quantity: 30 {Capsule} Refills: 5 Ordered: 14-Jul-2023 JAVAD Patten Start: 10-Nov-2022 End: 14-Jul-2023 Status: Inactive Start: 10-27-2021 End: 05-20-2022 Omeprazole 40 MG Oral Capsul e Delayed Release ; 1 (one) Capsule 30 minutes before first meal of day for 0 days Quantity: 30 {Capsule} Refills: 5 Ordered: 20-May-2022 VALARIE Batista Start: 27-Oct-2021 End: 20-May-2022 Status: Inactive Start: 06-02-2021 End: 06-24-2022 take 2 capsules by mouth once daily Omeprazole 20 mg capsule,delayed release(DR/EC) Discontinued 40 mg PO DAILY June 02, 2021 1:00am June 24, 2022 2:43pm Start: 06-02-2021 End: 06-24-2022 take 40 mg by mouth once daily Omeprazole Discontinued 40 MG PO DAILY June 02, 2021 1:00am June 24, 2022 2:43pm phenazopyridine hydrochloride 200 mg oral tablet (20 sources) Start: 04-28-2022 End: 04-30-2022 take 1 tablet by mouth three times daily for pain Pyridium 200 MG Oral Tablet ; 1 Tablet 3 times per day for 2 days after meals for urinary tract pain for 2 days Quantity: 6 {Tablet} Refills: 0 Ordered: 28-Apr-2022 ZAKIYA Quinteros Start: 28-Apr-2022 End: 30-Apr-2022 Status: Inactive predniSONE 20 mg oral tablet (20 sources) Start: 04-27-2019 End: 05-17-2019 take 3 tablets by mouth once daily, then take 2 tablets by mouth once daily, then take 1 tablet by mouth once daily, then take 0.5 tablet by mouth once daily predniSONE 20 MG Oral Tablet ; 1 (one) Tablet as directed for 0 days Quantity: 20 {Tablet} Refills: 0 Ordered: 17-May-2019 HEAVENLY Young Start: 27-Apr-2019 End: 17-May-2019 Status: Inactive Comments: Take 3tabs qd for 3 days thenTake 2tabs qd for 3 days thenTake 1tab qd for 3 days thenTake 1/2tab qd for 4 days. Comment on above: Take 3tabs qd for 3 days thenTake 2tabs qd for 3 days thenTake 1tab qd for 3 days thenTake 1/2tab qd for 4 days. sulfamethoxazole 800 mg / trimethoprim 160 mg oral tablet (20 sources) Dihydrofolate Reductase Inhibitor Antibacterial, Sulfonamide Antimicrobial Start: 04-28-2022 End: 05-03-2022 take 1 tablet by mouth twice daily Bactrim DS 800-160 MG Oral Tablet ; 1 (one) Tablet twice a day for 5 days Quantity: 10 {Tablet} Refills: 0 Ordered: 28-Apr-2022 ZAKIYA Quinteros Start: 28-Apr-2022 End: 03-May-2022 Status: Inactive Start: 08-19-2020 End: 08-22-2020 take 1 tablet by mouth twice daily Sulfamethoxazole-Trimethoprim 800-160 MG Oral Tablet ; 1 (one) Tablet two times daily for 3 days Quantity: 6 {Tablet} Refills: 0 Ordered: 19-Aug-2020 VALARIE Chavez Start: 19-Aug-2020 End: 22-Aug-2020 Status: Inactive triamcinolone acetonide 1 mg/ml topical cream (20 sources) Corticosteroid Start: 06-13-2019 End: 03-06-2020 Triamcinolone Acetonide 0.1 % External Cream ; apply cream three times daily for 0 days Quantity: 80 {Gram} Refills: 0 Ordered: 06-Mar-2020 VALARIE Stratton Start: 13-Jun-2019 End: 06-Mar-2020 Status: Inactive Start: 04-25-2019 End: 05-17-2019 Triamcinolone Acetonide 0.02 5 % External Cream ; 1 (one) application(s) application(s) twice daily for 0 days Quantity: 80 {Gram} Refills: 0 Ordered: 17-May-2019 HEAVENLY Young Start: 25-Apr-2019 End: 17-May-2019 Status: Inactive Problems Active Problems Problem Classification Problem Date Documented Da te Episodic/Chronic Abdominal pain (20 sources) Unspecified abdominal pain; Translations: [Right flank pain] Onset: 1 08-10-2016 Episodic Allergic reactions (20 sources) Contact dermatitis; Translations: [Unspecified contact dermatitis, unspecified cause] 04-27-2019 Episodic Anxiety disorders (20 sources) Anxiety; Translations: [Anxiety disorder, unspecified] Onset: 5 07-14-2023 Chronic Cancer of cervix (20 sources) Low grade squamous intraepithelial lesion on cervical Papanicolaou smear; Translations: [Low grade squamous intraepithelial lesion on cytologic smear of cervix (LGSIL)] 05-17-2019 Episodic Cancer of thyroid (20 sources) Malignant tumor of thyroid gland; Translations: [Malignant neoplasm of thyroid gland] Onset: 5 06-24-2022 Chronic Comment on above: 36-year-old female s tatus post right thyroid lobectomy with isthmusectomy 06/23/2021 for a sonographically suspicious right thyroid nodule. 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 The additional thyroid cancer summary findings were also reviewed and are favorable with no evidence of lymph node metastasis, lymphatic invasion, angioinvasion and the margins were clear. Greatest diameter on the tumor was 1.8 cm. This suggest this is a low risk thyroid cancer.She returns today for a 6-month surveillance visit. She, again, denies any new developments. Again, there are no suspicious findings with clinical exam. We reviewed both her thyroid functions (which were normal) and her surveillance thyroid ultrasound from 06/19/2022. This latter study showed a benign-appearing 3 mm cystic nodule of the left thyroid lobe. No other additional suspicious lymph nodes were noted. Taken alongside her reassuring physical exam I have recommended ongoing surveillance. Would plan for follow-up thyroid functions, surveillance thyroid ultrasound, and clinic visit in 12 months.Patient is now 38 years old and presents for yearly surveillance of her thyroid cancer. Her exam is completely benign and she denies any concerning symptoms. I have recommended that we continue follow-up for 5 years postoperatively to surveilled her for any recurrences. She is happy with this plan Contraceptive and procreative management (20 sources) Patient encounter status; Translations: [Encounter for contraceptive management, unspecified] 05-17-2019 Episodic Esophageal disorders (20 sources) Gastroesophageal reflux disease; Translations: [Gastro-esophageal reflux disease without esophagitis] 06-02-2021 Chronic Comment on above: Patient states that all of her symptoms resolved as of eosinophilic esophagitis are now gone. I have informed her that some guidelines would suggest she needs a repeat EGD with biopsy to confirm and a microscopic level that this issue is fully resolved. She expresses that she understands this but wishes to simply keep watch of her symptoms and pursue follow-up endoscopy if there is a recurrence of symptoms. Esophageal disorders (10 sources) Esophagitis; Translations: [Esophagitis] Onset: 5 01-02-2025 Episodic Fluid and electrolyte disorders (20 sources) Dehydration; Translations: [Dehydration] 08-10-2016 Episodic Gastritis and duodenitis (3 sources) Gastritis; Translations: [Gastritis, unspecified, without bleeding] 12-09-2023 Episodic Gastrointestinal hemorrhage (20 sources) Gastrointestinal hemorrhage; Translations: [Hemorrhage of anus and rectum] 05-12-2016 Episodic Genitourinary symptoms and ill-defined conditions (20 sources) Urinary symptoms ; Translations: [Unspecified symptoms and signs involving the genitourinary system] 12-05-2020 Episodic Immunizations and screening for infectious disease (20 sources) Needs influenza immunization; Translations: [Encounter for immunization] 06-10-2016 Episodic Mycoses (20 sources) Dermatophytosis; Translations: [Dermatophytosis, unspecified] 07-14-2023 Episodic Nausea and vomiting (11 sources) Postoperative nausea and vomiting; Translations: [Nausea with vomiting, unspecified] Onset: 01-02-2025 Episodic Other complications of (20 sources) Urinary tract infection in ; Translations: [Unspecified infection of urinary tract in , second trimester] 08-10-2016 Episodic Other gastrointestinal disorders (4 sources) Dysphagia; Translations: [Dysphagia, unspecified] 05-13-2023 Episodic Comment on above: Resolved Other inflammatory condition of skin (20 sources) Erythema multiforme; Translations: [Erythema multiforme, unspecified] 06-13-2019 Episodic Other lower respiratory disease (20 sources) Cough; Translations: [Cough] 11-02-2022 Episodic Other nutritional; endocrine; and metabolic disorders (20 sources) Overweight in adulthood with body mass index of 25 or more but less than 30; Translations: [Body mass index (BMI) 25.0-25.9, adult] 05-17-2019 Episodic Other nutritional; endocrine; and metabolic disorders (6 sources) Body mass index 25-29 - overweight; Translations: [Body mass index (BMI) 25.0-25.9, adult] 05-17-2019 Episodic Other and delivery including normal (20 sources) Primigravida; Translations: [Encounter for supervision of normal first , third trimester] 12-09-2016 Episodic Other screening for suspected conditions (not mental disorders or infectious disease) (20 sources) care status; Translations: [Encounter for screening of mother] 11-05-2016 Episodic Other skin disorders (20 sources) Vesicular eczema; 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]] 07-14-2023 Episodic Other skin disorders (20 sources) Skin nodule; Translations: [Localized swelling, mass and lump, unspecified] 05-17-2019 Episodic Other skin disorders (20 sources) Nodule of subcutaneous tissue of neck; Translations: [Localized swelling, mass and lump, neck] 05-21-2021 Episodic Other upper respiratory disease (5 sources) Feeling of lump in throat; Translations: [Globus sensation] 05-13-2023 Episodic Other upper respiratory infections (20 sources) Acute nasopharyngitis [common cold]; Translations: [Posterior rhinorrhea] Onset: Episodic Residual codes; unclassified (14 sources) History of thyroid lobectomy; Translations: [Acquired absence of other part of head and neck] Onset: 5 07-28-2021 Episodic Comment on above: R lobectomy/isthmuse ctomy on 06/23/2021 Residual codes; unclassified (20 sources) Gestation period, 39 weeks; Translations: [39 weeks gestation of ] 12-09-2016 Episodic Residual codes; unclassified (20 sources) Non-smoker; Translations: [Other specified health status] 05-17-2019 Episodic Residual codes; unclassified (20 sources) Gestation period, 38 weeks; Translations: [38 weeks gestation of ] 11-26-2016 Episodic Residual codes; unclassified (20 sources) Gestation period, 37 weeks; Translations: [37 weeks gestation of ] 11-18-2016 Episodic Residual codes; unclassified (20 sources) Gestation period, 36 weeks; Translations: [36 weeks gestation of ] 11-12-2016 Episodic Residual codes; unclassified (20 sources) Gestation period, 35 weeks; Translations: [35 weeks gestation of ] 11-05-2016 Episodic Residual codes; unclassified (20 sources) Gestation period, 33 weeks; Translations: [33 weeks gestation of ] 10-22-2016 Episodic Residual codes; unclassified (20 sources) Gestation period, 29 weeks; Translations: [29 weeks gestation of ] 09-18-2016 Episodic Residual codes; unclassified (20 sources) Gestation period, 24 weeks; Translations: [24 weeks gestation of ] 08-20-2016 Episodic Residual codes; unclassified (20 sources) Gestation period, 19 weeks; Translations: [19 weeks gestation of ] 07-15-2016 Episodic Residual codes; unclassified (20 sources) Gestation period, 14 weeks; Translations: [14 weeks gestation of ] 06-10-2016 Episodic Residual codes; unclassified (20 sources) Gestation period, 9 weeks; Translations: [9 weeks gestation of ] 05-01-2016 Episodic Residual codes; unclassified (18 sources) Family history of malignant lymphoma; Translations: [Family history of other malignant neoplasms of lymphoid, hematopoietic and related tissues] 08-30-2024 Episodic Residual codes; unclassified (1 source) Other specified postprocedural states; Translations: [PONV (postoperative nausea and vomiting)] Onset: Episodic Residual codes; unclassified (1 source) Acquired absence of other part of head and neck; Translations: [History of lobectomy of thyroid] Onset: 5 Episodic Thyroid disorders (20 sources) Thyroid nodule; Translations: [Nontoxic single thyroid nodule] Onset: 5 06-16-2021 Chronic Comment on above: Patient is a 39-year -old female with history of right sided papillary thyroid cancer, follicular variant 1.8 cm with no high risk features status post right thyroid lobectomy and isthmusectomy in June 2021 who presents today with symptoms of dysphagia and new nodularity of her prior surgical bed. Patient otherwise denies compressive symptoms and denies significant health update. Notably, she does distinguish this from her experience with eosinophilic esophagitis. I shared frankly with Mr. Mrs. Keen that I was concerned this could represent a recurrence of her thyroid cancer and wished to proceed with biopsy of her new thyroid nodularity. Alternatively, I explained that this could represent a regrowth of her thyroid tissue secondary to underlying thyroiditis as noted on original pathology. Patient was receptive of this recommendation/sentiment. On exam, I do not find evidence of any cervical lymphadenopathy the either with my physical exam or a cursory exam using ultrasound. With ultrasound I did identify the largest of patient's 5 nodules on the right and the most clinically suspicious with the TI-RADS rating given by radiology. After I was provided with consent, I proceeded with biopsy of a 2.1 cm TI-RADS 4 lesion superior laterally and a 1.4 cm TI-RADS 4 lesion inferior medially. This was completed in a uneventful fashion. I did notify Mrs. Keen that depending on the pathology results I would be interested in obtaining a dedicated soft tissue ultrasound for purposes of lymph node mapping. If this represents a recurrence of her thyroid cancer I will likely recommend referral to a tertiary center as I do not perform any significant volume of reoperative endocrine surgery and the risk to patient's recurrent laryngeal nerve would not be in significant. Unclassified (20 sources) deliveries 05-12-2021 Comment on above: 1. PLTCS for d istress, post dates Unclassified (20 sources) Number of Children 05-12-2021 Comment on above: 1. Unclassified (20 sources) Number of Pregnancies 05-12-2021 Comment on above: 1. Unclassified (20 sources) Follow up for chronic condition - The patient is here for follow-up of anxiety. The patient always takes the prescribed medications. No side effects noted. The patient has an active lifestyle but no regular exercise program. The patient's out of office blood pressure checks occur rarely. The patient states that the disease has no overall impact. Note for Chronic condition follow-up: Had fullness feeling in neck so saw Dr. Cano - thyroid testing was normal but EGD showed eosinophilic esophagitis so is on budesonide x 12 weeks and then will repeat EGD at that time. Tolerating well and thinks there has been improvement.Hydroxyzin e effective - does have anxiety more than twice a week. 07-14-2023 Unclassified (20 sources) Follow up for chronic condition - The patient is here for follow-up of anxiety and other condition(s) (acid reflux). The patient always takes the prescribed medications. No side effects noted. The patient engages in regular exercise program 1-3 times per week. The patient states that there is no recent angina or dyspnea, weight has increased, in general mood has improved and they do not have headaches. Note for Chronic condition follow-up: Had eggs and toast on Sat and felt a fullness in throat/trouble swallowing. Did take a while to go away even after drinking something. Has happened on occasion since her thyroidectomy. Feels heartburn/indigestion have been good. Is almost out of med.Has hydoxyzine that she can take prn - works well. Doesn't feel needs daily med.No longer seeing endocrinology. Seeing general surgeon once a year- thyroid US and labs done 06/2022. 11-02-2022 Viral infection (20 sources) Varicella; Translations: [Verruca plantaris] 05-17-2019 Episodic Comment on above: childhood Past or Other Problems Problem Classification Problem Date Documented Da te Episodic/Chronic Malaise and fatigue (1 source) Weakness; Translations: [Weakness] Onset: 11-01-2020 Episodic Other circulatory disease (3 sources) Other specified symptoms and signs involving the circulatory and respiratory systems; Translations: [Other specified symptoms and signs involving the circulatory and respiratory systems] Onset: 12-06-2020 Episodic Other gastrointestinal disorders (2 sources) Dysphagia, unspecified; Translations: [Dysphagia, unspecified] Onset: 11-02-2024 05-13-2023 Episodic Spondylosis; intervertebral disc disorders; other back problems (3 sources) Low back pain; Translations: [Low back pain] Onset: 11-01-2020 Episodic Unclassified (20 sources) UTI - Symptoms include dysuria, urinary frequency, hematuria and dark urine, but do not include urinary urgency, malodorous urine, flank pain, abdominal pain or back pain. The pain is located in the suprapubic area. The patient describes the pain as burning. Onset was sudden 3 day(s) ago. There is no known event that preceded symptom onset. The symptoms occur constantly. The patient describes this as moderate in severity and worsening. Symptoms are not relieved by phenazopyridine, urinary anesthetics, cranberry juice or non-opioid analgesics. Associated symptoms include nocturia, but do not include fever, chills, nausea, vomiting, urinary incontinence, urinary retention, urinary hesitancy, urethral discharge or vaginal discharge. Risk factors do not include indwelling catheter, fecal incontinence, current , menopause or diaphragm use. Note for UTI: patient has been taking Azo to help with symptoms. 04-28-2022 Unclassified (20 sources) Cold Symptoms - Symptoms include nasal congestion, runny nose, productive cough and headache, but do not include sneezing, non-purulent sputum, purulent discharge, ear pain, ear fullness, sore throat, scratchy throat, hoarseness, dry cough, wheezing, fever, chills, general malaise or facial pain. The onset was sudden 6 day(s) ago. The symptoms occur frequently. The patient describes this as moderate in severity and unchanged. Current treatment includes non-prescription cold medication (dayquil and nyquil). Risk factors do not include child in daycare or smoking. The patient has been exposed to an individual with similar symptoms, but has not been exposed to an individual with a cough, an individual with an upper respiratory infection, an individual with strep or secondhand smoke. Patient denies history of seasonal allergies, recurrent sinusitis, recurrent strep pharyngitis, asthma, tonsillectomy or recurrent ear infections. 11-25-2021 Unclassified (20 sources) Cold Symptoms - Symptoms include nasal congestion, runny nose, purulent discharge, sore throat (has resolved), productive cough and headache, but do not include fever or chills. The onset was gradual 1 week(s) ago. The symptoms occur constantly. The patient describes this as moderate in severity and unchanged. The patient is not currently being treated for this problem. The patient has been exposed to an individual with similar symptoms. Note for Upper respiratory infection: Had covid July 18.Feels anxious at night - mind racing; symptoms are not nightly. 09-01-2021 Unclassified (20 sources) Well adult female - The patient feels well with minor complaints (Pt is having some heart burn), has good energy level and is sleeping well. The first day of the last menstrual period was : (04/22/2021). The current method of contraception is: oral contraceptives. The patient has a balanced diet and takes supplemental vitamins. The patient exercises 3 - 4 times per week (walks). The patient sleeps 7 hours per night. Note for Well adult female: On 04/18 had episode of heartburn in the late evening (no specific trigger); finished omeprazole 20mg daily about 1-2 weeks ago. Feels like she has a lump in her throat; marley after breakfast - x 1 month.No trouble swallowing.No breakthrough heartburn when she had been on omeprazole 40mg daily. 05-12-2021 Unclassified (20 sources) Heartburn - The onset of the heartburn has been gradual and has been occurring in an intermittent pattern for 2 years (since of last chilld). The course has been recurrent. The heartburn is characterized as pain. The heartburn is described as being located in the retrosternal area. The heartburn does not radiate. The symptoms have no relieving factors. There has been no associated abdominal distention, dysphagia, flatulence, nausea or vomiting. Note for Heartburn: she has not tried anything for this , when she was she took something for it but has not since then.this week (Mon) she started with upset stomach, chills, bodyache, diarrhea on Tues, temp 100.6. 12-05-2020 Unclassified (20 sources) Cold Symptoms - Symptoms include nasal congestion, runny nose, non-purulent sputum, dry cough, productive cough, general malaise, headache and facial pain, but do not include sneezing, ear pain, ear fullness, sore throat, fever or chills. The onset was sudden 2 day(s) ago. The symptoms occur frequently. The patient describes this as moderate in severity and worsening. Current treatment includes non-prescription cold medication. Risk factors do not include smoking. The patient has been exposed to an individual with a cough and an individual with similar symptoms. Medical history includes seasonal allergies, but patient denies history of recurrent sinusitis, asthma, tonsillectomy or recurrent ear infections. 09-19-2020 Unclassified (20 sources) UTI - Symptoms include dysuria (burning at the end of urination), urinary frequency and urinary urgency, but do not include hematuria, dark urine, malodorous urine, flank pain, abdominal pain or back pain. The patient describes the pain as burning. Onset was hour(s) ago (started this morning). There is no known event that preceded symptom onset. The symptoms occur constantly. The patient describes this as moderate in severity and unchanged. Symptoms are not relieved by cranberry juice. Associated symptoms do not include fever, chills, nausea, vomiting, urethral discharge or vaginal discharge. Note for UTI: Been pushing fluids and drinking cranberry juice. 08-19-2020 Unclassified (20 sources) Rash - The onset of the rash has been gradual and has been occurring in a persistent pattern for 5 months. The course has been constant (pt said at first it got worse, but now its just staying the same). The rash is characterized as red (dry, flakey) and crusty. The rash was first seen on the scalp. There has been no progression. There has been associated itching and erythema, while there has been no associated pain, drainage or edema. There has been associated itching, while there has been no alopecia, chills, fatigue, fever, loss of sensation, malaise or pain. Note for Rash: pt also has a spot on the left side of her neck she noticed Wednesday - same size - tender at times- if she messes with it 03-06-2020 Unclassified (20 sources) Rash - The onset of the rash has been gradual and has been occurring in a persistent pattern for 4 weeks. The course has been increasing. The rash is characterized as red. The rash was first seen on the upper extremity (hands). It spread to the back and the lower extremity (feet). There has been associated itching and erythema. There has been no associated fever. 06-13-2019 Unclassified (20 sources) Rash - The onset of the rash has been acute and has been occurring in a persistent pattern for 1 week. The course has been increasing. The rash is characterized as red and raised above the skin. The rash was first seen on the upper extremity (hands). It spread to the trunk, the back and the lower extremity (feet). There has been associated itching and edema. There has been associated itching, while there has been no fever or malaise. Note for Rash: 2 weeks ago had allergic reaction to eyebrows, toptical steroids given, f/u 2 days later for bleeding and PO prednisone as well as sulfa was used 05-17-2019 Unclassified (20 sources) eyebrows bleeding - Patient is here with complaints that on Wednesday she had her eyebrows tinted. She came in on Wednesday and saw [facility] - gave her cream but the pharmacy did not have it until yesterday - she did pick it up but then at that point her eyebrows are bleeding and seeping and crusty so she didn't use it. She is very swollen above the eyelids. Taking an allergy medication. 04-27-2019 Unclassified (20 sources) Rash - The onset of the rash has been acute and has been occurring in a persistent pattern for 2 days. The course has been constant. The rash is characterized as red. The rash was first seen on the face (eyebrows after she got them tinted). There has been no progression. There has been no associated drainage or edema. There has been no associated fever, loss of sensation, lymphadenopathy or mucous membrane lesions. Note for Rash: Pt took benadryl last night. 04-25-2019 Unclassified (20 sources) Cough - Note for Cough: mosquera, cough, 3 wks, getting worse, lost apetite, fever, cough all night 08-15-2017 Unclassified (20 sources) repeat pap - pap showed LGSIL. 06-16-2017 Unclassified (20 sources) Warts - The warts are located on the right hand. 04-14-2017 Unclassified (20 sources) Post- visit - The patient is here for a scheduled follow-up visit after an emergent . The was complicated by distress before delivery. The patient feels well with no complaints, is sleeping well and has good energy level. There are no urinary problems. There are no bowel problems. Perineum/wound: abdominal wound healing well. The patient is breast feeding the infant. There are no feeding difficulties. Menstruation: has not resumed. Patient states that sexual activity has resumed. The patient has resumed physical activity. Patient states that she is coping/adjusting to motherhood well and family is interacting well with . 02-17-2017 Unclassified (20 sources) Post- visit - The patient is here for an unscheduled follow-up visit after an emergent . The was complicated by distress before delivery. The patient is sleeping well, has good energy level and feels well with minor complaints. The patient has complaints of incisional pain. Note for Post- visit: -Got rx augmentin last night and has had 2 doses. 12-16-2016 Unclassified (20 sources) Visit - The patient is here for a 39 week visit. 12-04-2016 Unclassified (20 sources) Visit - The patient is here for a 38 week visit. 11-26-2016 Unclassified (20 sources) Visit - The patient is here for a 36 week visit. 11-12-2016 Unclassified (20 sources) Visit - The patient is here for a 35 week visit. 11-05-2016 Unclassified (20 sources) Visit - The patient is here for a 33 week visit. 10-22-2016 Unclassified (20 sources) visit - The patient is here for a 29 week visit. 09-18-2016 Unclassified (20 sources) visit - The patient is here for a 24 week visit. 08-20-2016 Unclassified (20 sources) visit - The patient is here for a 23 week visit. 08-10-2016 Unclassified (20 sources) visit - The patient is here for a 19 week visit. 07-15-2016 Unclassified (20 sources) visit - The patient is here for a 14 week visit. 06-10-2016 Unclassified (20 sources) Bloody stools - The onset of the bloody stools has been acute , and they have been occurring for 1 day. The course has been decreasing. The bloody stools are characterized as blood mixed in stools. Note for Bloody stools: patient is 10 weeks , after dinner Wednesday evening she did not feel well and then started with diarrhea, after going several times she had blood mucus . Yesterday morning she also had blood tinged mucus. Today stool is back to normal; she feels back to normal and no blood is present in stool 05-12-2016 Unclassified (20 sources) visit (initial) - The patient suspects she is due to a positive home test and missed menses. Last menstrual period: 9 weeks ago. - (1). 05-01-2016 Unclassified (20 sources) wart - Pt. saw [facility] 03/11/15 and cryo surgery was preformed on a wart on patients left foot. There was some improvement, but wart is still there. Pt. is here today for re-freezing. Still sore to walk 04-04-2015 Unclassified (20 sources) Well Adult, female - The patient feels well with minor complaints (Pt. c/o lesion on the bottom of her left foot x 1 month. Pt c/o discomfort to area, when walking.), has good energy level and is sleeping well. The first day of the last menstrual period was : (03/05/15). The current method of contraception is: oral contraceptives. The patient has a balanced diet and takes supplemental vitamins. The patient exercises 3 - 4 times per week. The patient sleeps 8 hours per night. The patient's libido is normal. 03-11-2015 Unclassified (20 sources) Well Adult, female - The patient feels well with minor complaints. The first day of the last menstrual period was : (01/15/14). The patient is not using any method of contraception at this time. The patient has a balanced diet. The patient exercises 3 - 4 times per week (2-3 times/week). The patient sleeps 7 hours per night. Note for Well Adult, female: Pt. is interested in starting control pills. 02-08-2014 Unclassified (1 source) Well adult female - The patient feels well with minor complaints (has heart burn again and lump feeling in her throat, Pt is scheduled to have scope done in September), has decreased energy level and is sleeping well. The first day of the last menstrual period was : (08/17/2024). The patient has a balanced diet and takes supplemental vitamins. The patient does not exercise. The patient sleeps 7 hours per night. 08-30-2024 Unclassified (9 sources) Well adult female - The patient feels well with minor complaints (has heart burn again and lump feeling in her throat; pt is scheduled to have scope done in September), has decreased energy level and is sleeping well. The first day of the last menstrual period was : (08/17/2024). The patient has a balanced diet and takes supplemental vitamins. The patient does not exercise. The patient sleeps 7 hours per night. 08-30-2024 Results Test Name Value Interpretation Reference Range Facility [facility] 02-14-2025 [facility] Telephone ([id number]) SIMA KEEN ([id number]) 1985 F Date Time Provider Department 02/14/25 BOBBI DE LA PAZ During your visit today, we recorded the following information about you: Elyse Perez 02/14/2025 7:14 AM Signed Bobbi De La Paz MD [facility] Clerical Pool please call this patient and help her set up a virtual visit for 6 weeks 1st attempt sent Elyse Perez Allergies As of Date: 02/14/2025 Noted Allergy Reaction CEFACLOR 12/06/2024 2 - Rash Date Reviewed: 01/11/2025 Reviewed by: Sally Ellsworth, HEAVENLY - Fully Assessed Prescriptions as of 02/14/2025 - levothyroxine (SYNTHROID) 112 mcg tablet Take 1 tablet by mouth once daily. - calcium carbonate (TUMS) 500 mg chew Take 1 tablet by mouth every hour as needed (mouth or hand numbness or tingling). - mgfvwsz-elkaguzcb-mffovni D3 500 mg-5 mcg (200 unit) per tablet Take 1 tablet by mouth three times a day. - hydrOXYzine HCl (ATARAX) 25 mg tablet Take 25 mg by mouth once daily. - BUDESONIDE ORAL Take by mouth. Pt uses Liquid 2ml in Am and 2ml in pm Problem List As Of Date 02/14/2025 Noted Resolved PONV (postoperative nausea and vomiting) [R11.2*01/02/2025 Anxiety [F41.9] 01/02/2025 History of lobectomy of thyroid [Z90.09] 01/02/2025 Esophagitis [K20.90] 01/02/2025 Encounter Status:Closed by ELYSE PEREZ on 02/14/25 [facility] Telephone (JOSEY) SIMA KEEN ([id number]) 1985 F Date Time Provider Department 02/14/25 JEYSON BUSTAMANTE During your visit today, we recorded the following information about you: Johan Velázquez 02/14/2025 11:00 AM Signed February 14, 2025 [id number] Patient Name: Sima Keen Contact Information: [phone] (home) [phone] (cell) Reason For Call: Patient is calling because she had surgery with Dr. Bustamante on 01/11 and is having concerns with her voice can you please call patient back? Physician: MD Janessa Wheatley Tiffany 02/14/2025 12:12 PM Signed Pt. Reports concern over her voice which started about two weeks ago. Pt. Reports her voice is better in the morning but as she talks throughout the day her voice gets more hoarse. Pt. Has not lost voice completely but her voice is not to where it was at baseline before surgery. Pt. Reports having to clear throat at times. Please advise. Allergies As of Date: 02/14/2025 Noted Allergy Reaction CEFACLOR 12/06/2024 2 - Rash Date Reviewed: 01/11/2025 Reviewed by: Sally Ellsworth, HEAVENLY - Fully Assessed Reason for Visit: Post Op [174] Prescriptions as of 02/14/2025 - levothyroxine (SYNTHROID) 112 mcg tablet Take 1 tablet by mouth once daily. - calcium carbonate (TUMS) 500 mg chew Take 1 tablet by mouth every hour as needed (mouth or hand numbness or tingling). - qctnedw-nasdonujo-htyvndo D3 500 mg-5 mcg (200 unit) per tablet Take 1 tablet by mouth three times a day. - hydrOXYzine HCl (ATARAX) 25 mg tablet Take 25 mg by mouth once daily. - BUDESONIDE ORAL Take by mouth. Pt uses Liquid 2ml in Am and 2ml in pm Problem List As Of Date 02/14/2025 Noted Resolved PONV (postoperative nausea and vomiting) [R11.2*01/02/2025 Anxiety [F41.9] 01/02/2025 History of lobectomy of thyroid [Z90.09] 01/02/2025 Esophagitis [K20.90] 01/02/2025 Encounter Status:Closed by JOYA ESCOBAR on 02/14/[address] [facility] Marlo 01-30-2025 STEPHANYN Telephone (JOSEY) SIMA KEEN ([id number]) 1985 F Date Time Provider Department 01/30/25 JEYSON BUSTAMANTE During your visit today, we recorded the following information about you: Allergies As of Date: 01/30/2025 Noted Allergy Reaction CEFACLOR 12/06/2024 2 - Rash Date Reviewed: 01/11/2025 Reviewed by: Sally Ellsworth RN - Fully Assessed Reason for Visit: Appointment [186] Cmt: Left a message for patient to call [phone] to schedule a Consult with a [facility] for MI Treatment for Thyroid Cancer diagnosis and sent My Chart message Prescriptions as of 01/30/2025 - levothyroxine (SYNTHROID) 112 mcg tablet Take 1 tablet by mouth once daily. - levothyroxine (SYNTHROID) 112 mcg tablet Take 1 tablet by mouth daily at 6 am. - calcium carbonate (TUMS) 500 mg chew Take 1 tablet by mouth every hour as needed (mouth or hand numbness or tingling). - mpaqpmh-pmyczvaqr-aycrqjm D3 500 mg-5 mcg (200 unit) per tablet Take 1 tablet by mouth three times a day. - hydrOXYzine HCl (ATARAX) 25 mg tablet Take 25 mg by mouth once daily. - BUDESONIDE ORAL Take by mouth. Pt uses Liquid 2ml in Am and 2ml in pm Problem List As Of Date 01/30/2025 Noted Resolved PONV (postoperative nausea and vomiting) [R11.2*01/02/2025 Anxiety [F41.9] 01/02/2025 History of lobectomy of thyroid [Z90.09] 01/02/2025 Esophagitis [K20.90] 01/02/2025 Encounter Status:Closed by EDITH HARMON on 01/30/[address] [facility] Marlo 01-17-2025 STEPHANYN Telephone (Magic Wheels) SIMA KEEN ([id number]) 1985 F Date Time Provider Department 01/17/25 JEYSON BUSTAMANTE During your visit today, we recorded the following information about you: Johan Velázquez 01/17/2025 3:34 PM Signed Shanna Foster, Patient called and is wondering if she can get a return to work form can you help with this please? Call back [phone] Allergies As of Date: 01/17/2025 Noted Allergy Reaction CEFACLOR 12/06/2024 2 - Rash Date Reviewed: 01/11/2025 Reviewed by: Sally Ellsworth, RN - Fully Assessed Prescriptions as of 01/17/2025 - levothyroxine (SYNTHROID) 112 mcg tablet Take 1 tablet by mouth daily at 6 am. - calcium carbonate (TUMS) 500 mg chew Take 1 tablet by mouth every hour as needed (mouth or hand numbness or tingling). - yowbadv-lougczwvu-rxjswki D3 500 mg-5 mcg (200 unit) per tablet Take 1 tablet by mouth three times a day. - hydrOXYzine HCl (ATARAX) 25 mg tablet Take 25 mg by mouth once daily. - BUDESONIDE ORAL Take by mouth. Pt uses Liquid 2ml in Am and 2ml in pm Problem List As Of Date 01/17/2025 Noted Resolved PONV (postoperative nausea and vomiting) [R11.2*01/02/2025 Anxiety [F41.9] 01/02/2025 History of lobectomy of thyroid [Z90.09] 01/02/2025 Esophagitis [K20.90] 01/02/2025 Encounter Status:Closed by JOHAN VELÁZQUEZ on 01/17/25 Normal [facility] Calcium SerPl-mCncon 025 Calcium [Mass/Vol] 8.8 mg/dL Normal 8.5-10.2 [facility] Comment on above: Order Comment: Speci men Type: BLOOD SPECIMEN Ordering Facility: [facility] Address: [address] [place] [address] Performed By: #### 1 7861-6 #### [facility] CLIA [id number] [place] [address] [place] PTH-Intact SerPl-ncon - Parathyrin.intact [Mass/Vol] 31 pg/mL Normal 15-65 [facility] Comment on above: Order Comment: Speci men Type: BLOOD SPECIMEN Ordering Facility: [facility] Address: [address] [place] [address] Performed By: #### 2 731-8 #### [facility] CLIA [id number] [address] [place] [address] OF [facility] ANES POSTPROC EVALon 025 ANES POSTPROC EVAL HNO ID: [id number] Author: SAMUEL MATUTE MD Service: Anesthesiology Author Type: Anesthesiologist Type: Anesthesia Postprocedure Evaluation Filed: 01/11/2025 16:47 Note Text: POST ANESTHESIA EVALUATION NOTE : 1985 Procedure Summary Date: 01/11/25 Room / Location: [address] OR Anesthesia Start: 1232 Anesthesia Stop: 1610 Procedures: BIOPSY OR EXCISION LYMPH NODE(S) OPEN, DEEP CERVICAL (Right: Neck) LOBECTOMY THYROID UNILATERAL; WITH OR WITHOUT ISTHMUSECTOMY (Left: Thyroid) Diagnosis: Papillary carcinoma of thyroid (HCC) (Papillary carcinoma of thyroid (HCC) [C73]) Surgeons: Jeyson Bustamante MD Responsible Provider: Pablo Bray MD Anesthesia Type: general ASA Status: 2 Anesthesia Type: general Airway Type: ETT Last Vitals Vitals Value Taken Time BP 125/83 01/11/25 1645 Pulse 109 01/11/25 1646 Resp 21 01/11/25 1646 SpO2 95 % 01/11/25 1646 Vitals shown include unfiled device data. Post Anesthesia Patient Status Patient Evaluation: PACU. PACU/ICU Patient Condition: stable. Anticipated Disposition: inpatient floor planned admission. Neurological Status: aware and responsive. Pulmonary Status: breathing comfortably on room air Airway Control: returned to baseline unsupported. Cardiovascular Status: stable. Pain Management: clinically adequate - multimodal analgesia pain management approach Postoperative Hydration: acceptable. Intraoperative Events: no significant anesthesia events Recommendation: continue current plan of care. Anesthesia Observations No Documentation SIGNATURE: Samuel Matute MD PATIENT NAME: Sima Keen DATE: January 11, 2025 TIME: 4:47 PM CSN: [id number] [facility] ANES PRE-OPon 01-11-2025 ANES PRE-OP HNO ID: [id number] Author: PABLO BRAY MD Service: Anesthesiology Author Type: Physician Type: Anesthesia Preprocedure Evaluation Filed: 01/11/2025 11:25 Note Text: ANESTHESIOLOGY DAY OF SURGERY NOTE : 1985 Procedure Information Date/Time: 01/11/25 1220 Procedures: BIOPSY OR EXCISION LYMPH NODE(S) OPEN, DEEP CERVICAL (Right: Neck) - Nerveana LOBECTOMY THYROID UNILATERAL; WITH OR WITHOUT ISTHMUSECTOMY (Left: Thyroid) Location: MM OR08 / MM OR Surgeons: Jeyson Bustamante MD Estimated body mass index is 24.59 kg/m? as calculated from the following: Height as of 01/02/25: 170.2 cm (5' 7). Weight as of 01/02/25: 71.2 kg (157 lb). Most recent hematocrit and potassium results: Hematocrit 44.5 12/06/2024 Potassium 4.3 12/06/2024 Relevant Problems ANESTHESIA (+) PONV (postoperative nausea and vomiting) I - PHYSICAL EVALUATION AIRWAY Patient intubated: No. Tracheostomy tube not present Mallampati: II. TM distance: >3 FB. Neck ROM: full ROM without neurological symptoms. Mouth opening: adequate. Short neck: no. Thick neck: no DENTAL Dental findings: teeth intact. Additional exam findings: no II - ANESTHESIA PLAN ASA Score: 2 Anesthetic Plan: general Airway type: ETT NPO Status: adequate Anesthetic plan additional comments: nick breath sounds normal heart sounds. Beta Jenise Monitoring Plan Monitoring plan: Standard ASA. Post Procedure Analgesic Plan Postoperative analgesic plan: parenteral or oral opioids and multimodal analgesia. Patient / Surrogate agrees to blood products: yes DNR status not reviewed with patient and/or family prior to surgery. Significant changes in the patient condition since the History and Physical, not otherwise documented in primary service progress note: no. Potential Anesthesia issues that may suggest increased risk of complications or contraindication to planned procedure: none. Vitals Value Taken Time BP 131/81 01/11/25 1043 Pulse 80 01/11/25 1043 Resp 18 01/11/25 1043 Temp 36.6 ?C (97.9 ?F) 01/11/25 1043 SpO2 99 % 01/11/25 1043 Facility-Administered Medications as of 01/11/2025 Medication Dose Route Frequency lidocaine (PF) 10 mg/mL (1 %) 1-2 mg injection (XYLOCAINE) 0.1-0.2 mL INTRADERMAL PRN lactated ringers iv infusion 75 mL/hr INTRAVENOUS CONTINUOUS No current outpatient medications on file as of 01/11/2025. I have interviewed and examined the patient. I have reviewed the medical record and/or the pre-anesthesia evaluation, pertinent labs, and test results. This contains updated information obtained within 48 hours of Surgery/Procedure. SIGNATURE: Pablo Bray MD PATIENT NAME: Sima Keen DATE: January 11, 2025 TIME: 11:25 AM CSN: [id number] [facility] BRIEF OP NOTon 01-11-2025 BRIEF OP NOT HNO ID: [id number] Author: DAVID WINTER MD Service: Endocrine Surgery Author Type: Physician Type: Brief Op Note Filed: 01/11/2025 16:23 Note Text: Brief Operative Note Patient Name: Sima Keen LOG ID: [id number] Surgery/Procedure Date: 01/11/2025 Surgeon(s)/Proceduralist(s) and Public Safety Teacher(s): Surgeons and Role: * Jeyson Bustamante MD - Primary * David Winter MD - Fellow Procedure(s): right central neck dissection and completion left thyroid lobectomy Incision/Procedure Start Time: 1:00 PM Incision Close/Procedure End Time: 4:01 PM Anesthesia: General Findings: right central neck dissection. Frozen section came back as atypia, as such proceeded to perform a completion left thyroid lobectomy Input: Crystalloid: See anesthesia record Output: See anesthesia record Estimated Blood Loss: 20 mL Specimens: ID Type Source Tests Collected by Time Destination A : scar neck incision Tissue Skin, Scar SURGICAL PATHOLOGY Jeyson Bustamante MD 01/11/2025 1:05 PM B : right central neck mass Tissue Soft Tissue, Mass, Resection SURGICAL PATHOLOGY Jeyson Bustamante MD 01/11/2025 1:29 PM C : right anterior tracheal mass Tissue Soft Tissue, Mass, Resection SURGICAL PATHOLOGY Jeyson Bustamante MD 01/11/2025 1:51 PM D : Tissue Thyroid, Left, Lobe SURGICAL PATHOLOGY Jeyson Bustamante MD 01/11/2025 3:05 PM E : right central neck contents Tissue Soft Tissue, Mass, Resection SURGICAL PATHOLOGY Jeyson Bustamante MD 01/11/2025 3:17 PM Implants: * No implants in log * Drains: none Wound Classification: Class 1, operative wound clean, non-traumatic, with no inflammation encountered, no break in technique, gastrointestinal and genitor-urinary tracts not entered Pre-Op/Pre-Procedure Diagnosis: thyroid cancer Post-Op/Post-Procedure Diagnosis: same Post-Op Plan: Recover in PACU. SIGNATURE: David Winter MD DATE: 01/11/25 TIME: 4:22 PM Normal [facility] OPERATIVE NOon 01-11-2025 OPERATIVE NO HNO ID: [id number] Author: JEYSON BUSTAMANTE MD Service: Endocrine Surgery Author Type: Physician Type: Operative Report Filed: 01/15/2025 08:13 Note Text: [facility] - Operative Report SIMA KEEN : 1985 AGE: 39. SEX: F PATIENT TYPE: A HOSP SV: Surgical LOCATION: [facility] ATTENDING PHYSICIAN: Jeyson Bustamante MD CSN NUMBER: [id number] DATE OF SURGERY/PROCEDURE: 01/11/2025 INCISION/PROCEDURE START TIME: 1:00 PM INCISION CLOSE/PROCEDURE END TIME: 4:01 PM PREOPERATIVE DIAGNOSIS: Prior right thyroid lobectomy for papillary thyroid cancer with right central neck masses. POSTOPERATIVE DIAGNOSIS: Same SURGEON: Jeyson Bustamante MD GEOSPATIAL SYSTEMS INTEGRATOR: Dr. David Winter. SURGERY/PROCEDURE: Reoperative right central neck dissection, left thyroid lobectomy, intraoperative ultrasonography. ANESTHESIA: General. [facility] . COMPLICATIONS: None. ESTIMATED BLOOD LOSS: 10 mL. SPECIMENS: 1. Scar from previous neck incision. 2. Right central neck mass. 3. Right anterior tracheal neck mass. 4. Left thyroid lobectomy. 5. Right central neck dissection. HISTORY: Patient is a 39-year-old woman who was evaluated for right central neck masses in the setting of undergoing a prior right thyroid lobectomy for an early-stage papillary thyroid cancer. In 2020, she had a 1.6 cm TI-RADS 5 right thyroid lobe mass. Although, fine-needle aspiration was interpreted as benign given its suspicious sonographic appearance, she underwent a right thyroid lobectomy that was performed at [facility] on 12/28/2020. 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 No lymph nodes or parathyroids were included with that specimen. The 2 right-sided parathyroids were described as being identified in the course of thedissection. Patient had not been placed on thyroid hormone medication with multiple TSH values in the mid-2 range. She has been undergoing sonographic surveillance. In April 2023, no abnormal parathyroid tissue was described within the right thyroid bed. Followup ultrasound done in September 2024 described a 2 cm hypoechoic area within the right thyroid bed and additional 1.3 cm nodule more inferiorly in an anterior tracheal location. Fine-needle aspiration of both of these revealed atypia of undetermined significance. These were [facility] molecular profiling and were both in the suspicious category. She was subsequently referred for an evaluation. She was being taken to the operating room for excisional biopsy of these 2 right-sided neck masses. If on frozen section this is felt to be consistent with benign thyroid tissue, then no further exploration would be needed. If there is a suspicion of malignancy, however, additional right central neck dissection as well as left thyroid lobectomy will be required. FINDINGS: Ultrasound evaluation demonstrated a left thyroid lobe that was approximately 2 folds enlarged. It contained no obvious thyroid nodules. Located within the right thyroid bed was a 2 cm uniform nodule, but lacked any calcifications. A similar just over 1 cm nodule was identified inferiorly to this on the right anterolateral border of the trachea. No worrisome lymph nodes were identified sonographically in either central neck compartment nor in either jugular chain. At exploration, she underwent excision of these 2 dominant right central neck masses. These were evaluated intraoperatively on both frozen section as well as touch prep cytology. They were felt to contain atypical cells, but could not be definitively determined to be papillary thyroid cancer. Given this atypical reading, she underwent a left thyroid lobectomy as well as completion of her right central neck dissection. The right recurrent laryngeal nerve had been displaced anteriorly by the dominant mass in the right central neck compartment. This was of medium caliber. This was confirmed with the nerve stimulator and was intact at the completion of the procedure. In addition, the left recurrent laryngeal nerve was of medium caliber, ran in its usual anatomic course, and wasconfirmed to be intact by nerve stimulation at the completion of the case. The right central neck contents contained some small lymph nodes without obvious pathologic appearance. The right upper parathyroid gland was not encountered in the course of the dissection. The right lower parathyroid gland was identified and what appeared to be a tongue of cervical thymic tissue. The left lower parathyroid gland was located just inferior to lower pole of left lobe of the thyroid gland and the left upper parathyroid gland located in its typical anatomic location. There was a thin pyramidal lobe that joined the junction of the isthmus and left lobe that was taken en bloc with the specimen. DESCRIPTION OF PROCEDURE: Pa (more content not included)... [facility] Pathology biopsy report Torito (Tiss)on 01-11-2025 AP DISCLAIMER [facility] Comment on above: Order Comment: Speci men Type: TISSUE SPECIMEN Ordering Facility: [facility] Address: [address] [place] [address] Result Comment: Dennis ni Developed Test (LDT) Disclaimer: Performance characteristics of immunohistochemical, immunofluorescent, and chromogenic in-situ hybridization tests have been determined by the performing laboratory within [facility]'s [facility] Pathology and Laboratory Medicine Department ([facility], [facility], [facility], [facility], [facility], [facility], or [facility]) in a manner consistent with CLIA requirements. One or more of these tests may not have been cleared or approved by the FDA. [facility] is regulated under CLIA as qualified to perform high-complexity testing. These tests are used for clinical purposes. These should not be regarded as investigational or for research. Positive and negative controls stain appropriately. Performed By: #### 6 6121-5 #### [facility] CLIA [id number] [address] [place] [address] LABORATORY CLIA [id number] [place] [address] [place] CASE REPORT [facility] Comment on above: Order Comment: Speci men Type: TISSUE SPECIMEN Ordering Facility: [facility] Address: [address] [place] [address] Result Comment: Surg ical Pathology Report Case: [id number] Authorizing Provider: Jeyson Bustamante MD Collected: 01/11/2025 01:05 PM Ordering Location: [facility] Received: 01/11/2025 01:40 PM Pathologist: Ana Duong MD Intraop: Vince Dos Santos MD Specimens: A) - Skin, Scar, scar neck incision B) - Soft Tissue, Mass, Resection, right central neck mass C) - Soft Tissue, Mass, Resection, right anterior tracheal mass D) - Thyroid, Left, Lobe E) - Soft Tissue, Mass, Resection, right central neck contents Performed By: #### 6 6121-5 #### [facility] CLIA [id number] [address] [place] [place] [address] LABORATORY CLIA [id number] [address] [place] [address] CLINICAL HISTORY [facility] Comment on above: Order Comment: Speci men Type: TISSUE SPECIMEN Ordering Facility: [facility] Address: [address] [place] [address] Result Comment: Pre- op diagnosis: Papillary carcinoma of thyroid (HCC) [C73] Performed By: #### 6 6121-5 #### [facility] CLIA [id number] [address] [place] [address] LABORATORY CLIA [id number] [address] [place] [address] DIAGNOSIS COMMENT The largest involved lymph node measures 2.5 cm in greatest dimension (part B) and show focal extranodal extension (1 mm). [facility] Comment on above: Order Comment: Speci men Type: TISSUE SPECIMEN Ordering Facility: [facility] Address: [address] [place] [address] Performed By: #### 6 6121-5 #### [facility] CLIA [id number] [address] [place] [address] [facility] CLIA [id number] [address] [place] [address] [place] FINAL DIAGNOSIS [facility] Comment on above: Order Comment: Speci men Type: TISSUE SPECIMEN Ordering Facility: [facility] Address: [address] [place] [address] Result Comment: A. S kin, scar neck incision, excision: - Skin with scar tissue, negative for malignancy. B. Soft tissue, right central neck mass, excision: - Metastatic papillary thyroid carcinoma involving two lymph nodes (2/2), with focal extranodal extension. C. Soft tissue, right anterior tracheal mass, biopsy: - Metastatic papillary thyroid carcinoma involving one lymph node (07/19). D. Thyroid, left, completion thyroidectomy: - Benign thyroid tissue. E. Lymph nodes, right central neck contents, dissection: - Metastatic papillary thyroid carcinoma involving five of eight lymph nodes (5/8). at 1358 EDT Performed By: #### 6 6121-5 #### [facility] CLIA [id number] [address] [place] [address] [place] [facility] CLIA [id number] [address] [place] [address] [place] [facility] FINAL PERFORMING LAB [facility] Comment on above: Order Comment: Speci men Type: TISSUE SPECIMEN Ordering Facility: [facility] Address: [address] [place] [address] Result Comment: Diag nostic interpretation performed at: [facility], [address] [place], [place] [address] CLIA# [id number] Venipuncturist: Nilton Le MD Performed By: #### 6 6121-5 #### [facility] CLIA [id number] [address] [place] [address] [place] [facility] CLIA [id number] [address] [place] [address] [place] GROSS DESCRIPTION A. Skin, Scar Normal [facility] Comment on above: Order Comment: Speci men Type: TISSUE SPECIMEN Ordering Facility: [facility] Address: [facility] [place][note 2] [place] [address] Result Comment: Rece ived in formalin labeled scar neck incision is a an oriented skin ellipse measuring 4.0 x 0.7 cm and excised to a maximum depth of 0.7 cm. The skin surface shows a linear, judge-white discolored area consistent with previous scar measuring 2.5 cm in length by 0.1 cm in diameter. Sectioning through this area shows judge-white fibrotic cut surfaces. Plasterer Helper tissue is submitted in A1. B. Soft Tissue, Mass, Resection Received fresh for intraoperative consultation is a single piece of red-brown soft tissue measuring 2.5 x 2.3 x 1.5 cm. It is serially sectioned and a direct customer service representative section is submitted as FSB1. A touch prep also performed. The remaining tissue is submitted in B2-B3 for routine processing. C. Soft Tissue, Mass, Resection Received fresh for intraoperative consultation is a single piece of judge-red soft tissue measuring 1.4 x 0.8 x 0.7 cm. A direct customer service representative section is submitted as FSC1. 2 touch preps also performed. The remaining tissue is submitted in C2 for routine processing. Gross examination performed at [facility], [address] [address], [address]# [id number] Gross examination performed at [facility], [address] [place] [address] MSL/CORY 01/12/25 8:45 AM D. Thyroid, Left, Lobe Labeled: ???Thyroid, left, lobe??? Received: In formalin Specimen type: Lobectomy without attached skeletal muscle, lymph nodes, or large vessels Oriented: Now Weight: 19.6 grams Size: 6.0 x 3.5 x 2.0 cm Left lobe: 6.0 x 3.0 x 1.5 cm Isthmus: 2.5 x 1.5 x 0.8 Ink code: Blue- External surface of the left lobe Price - Resection margin of isthmus Sectioning: The lobe is serially sectioned from superior to inferior. Number of discrete nodules: 0 Background thyroid parenchyma: Red-brown homogenous Attached skeletal muscle: Not identified Attached lymph nodes: Not identified Attached parathyroid: Not identified Gross photograph: Yes Cassette Code: Representatively in D1-D2 (isthmus margin in D2). E. Soft Tissue, Mass, Resection Labeled: ???Right central neck contents??? Received: In formalin Orientation: Not provided Size: 2.4 x 2.0 x 1.0 cm, into 1 level Lymph node candidates: Total 8, see below for details. Other findings: N/A Cassette Summary: Level right central neck contents: 8, largest 0.8 cm E1: 4 lymph node candidates, in toto E2: 4 lymph node candidates, in toto Gross examination performed at [facility], [address] [place] [address] MSL/CORY 01/12/25 12:59 PM Performed By: #### 6 6121-5 #### [facility] CLIA [id number] [address] [place] [address] CLIA [id number] [address] [place] [address] OF [facility] INTRAOPERATIVE DIAGNOSIS [facility] Comment on above: Order Comment: Speci men Type: TISSUE SPECIMEN Ordering Facility: [facility] Address: [address] [place] [address] Result Comment: B. S oft Tissue, Mass, Resection FSB1 and touch prep: Atypical thyroid follicles and adjacent lymphoid tissue, cannot exclude carcinoma (Dr. Dos Santos/Saira/Jonel, using telepathology) C. Soft Tissue, Mass, Resection FSC1 and touch preps: Atypical thyroid follicles including within lymphoid tissue, cannot exclude carcinoma (Dr. Dos Santos/Saira/Jonel, using telepathology) Intraoperative diagnosis performed at [facility], [address] [place] [address] CLIA# [id number] Performed By: #### 6 6121-5 #### [facility] CLIA [id number] [address] [place] [address] OF [facility] CLIA [id number] [address] [place] [address] [place] HISTORY PHYSICALon HISTORY PHYSICAL HNO ID: [id number] Author: DINA NAJERA APRN.STEPHANY Service: ? Author Type: Nurse Practitioner Type: H&P Filed: 01/02/2025 10:23 Note Text: [facility] HISTORY AND PHYSICAL EXAMINATION SERVICE DATE: 01/02/2025 SERVICE TIME: 9:50 AM This is a virtual visit using Virtual Visit (Audio/Visual)I have discussed the nature of this visit with the patient which will occur via Distance Health (Phone, Virtual Visit) and she agrees to proceed with this interaction. It required patient-provider interaction for the medical decision making as documented below. I have communicated my name and active licensure. The patient's identity and physical location were verified at the time of this visit. Either the patient or their legal direct customer service representative has been informed of the risks and benefits of and alternatives to treatment through a remote evaluation and consents to proceed with the evaluation remotely. PRIMARY CARE PHYSICIAN: Alanis Batista, PAC Assessment Patient has the following medical conditions which may affect angelica-operative course: PONV (postoperative nausea and vomiting) Patient reported Anxiety Currently on hydrOXYzine HCl (ATARAX) Followed by PCP States stables and controlled History of lobectomy of thyroid History of thyroid cancer S/P right thyroid lobectomy 2020 No longer on medication Esophagitis Currently on BUDESONIDE States stables and controlled ANESTHESIA FINDINGS: Intubation History: No history of difficult intubation. No abnormal airway history Significant Anesthesia Considerations: potential postop nausea/vomiting Airway History: No history of difficult airway No abnormal airway history Arnold Activity Status Index: METS: Walk indoors, such as around the house (1.75 METs) Do light work around the house, such as dusting or washing dishes (2.70 METs) Take care of self; that is eating, dressing, bathing, using the toilet (2.75 METs) Walk a block or two on level ground (2.75 METs) Do moderate work around the house, such as vacuuming, sweeping floors, or carrying in groceries (3.50 METs) Do yardwork, such as raking leaves, weeding, or pushing a power mower (4.50 METs) Have sexual relations (5.25 METs) Climb a flight of stairs or walk up a hill (5.50 METs) Participate in moderate recreational activites, such as golf, bowling, dancing, doubles tennis, or throwing a baseball or football (6.00 METs) Participate in strenuous sport, such as swimming, singles tennis, football, basketball, or skiing (7.50 METs) Do heavy work around the house, such as scrubbing floors, lifting or moving heavy furniture (8.00 METs) DASI Score: 50.2 Patient denies any chest pain or undue shortness of breath with the above physical activity. Clinical Frailty Scale: 3. Well, with treated comorbid disease STOP-Bang Score: Has been observed to stop breathing or choking/gasping during sleep Denies snoring loudly Denies feeling tired, fatigued, or sleepy during the daytime Denies having high blood pressure BMI less than or equal to 35 kg/m2 Patient 50 years old or younger Does not have a large neck Non-male patient STOP-Bang Score: 1 [id number] Score: Age: <65 Sex: female CHF history: No Hypertension history: No Stroke/TIA/thromboembolism history: No Vascular disease history: No Diabetes history: No [id number] Score: 1 ARISCAT Score: Age: <=50 Preoperative SpO2: <=90% Respiratory infection in the last month: No Preoperative anemia: No Duration of surgery: >3 hrs Emergency procedure: No ARISCAT Score: I - PHYSICAL EVALUATION AIRWAY Patient intubated: No. Tracheostomy tube not present Mallampati: I. TM distance: >3 FB. Neck ROM: full ROM without neurological symptoms. Mouth opening: adequate. Short neck: no. Thick neck: no Ram present: no Lip Bite Test: I Microretrognathia/Micronagt hia/Recessed Chin: No DENTAL Dental findings: teeth intact. II - ANESTHESIA PLAN Anesthetic Plan: other Anesthetic plan additional comments: *PACC/TCI - anesthesia choice. Beta Jenise Monitoring Plan Post Procedure Analgesic Plan Prepared for Surgery: optimally prepared for surgery, pending [see comment]. DOS exam Reviewed 12/06/24 CBC and BMP, accepted CONSULTS: Patient does not require consults for optimization at this time Planned Anesthetic: other anesthesia choice The Following Tests/Procedures Have Been Initiated: No orders of the defined types were placed in this encounter. REASON FOR VISIT: Sima Keen is a 39 year old female who is scheduled for Procedure(s) with comments: BIOPSY OR EXCISION LYMPH NODE(S) OPEN, DEEP CERVICAL (Right) - Nerveana LOBECTOMY THYROID UNILATERAL; WITH OR WITHOUT ISTHMUSECTOMY (Left) at the request of Jeyson Holman MD for consultation. My final recommendation will be communicated back to (more content not included)... Normal [facility] Basic metabolic 2000 panelon 12-06-2024 Anion gap [Moles/Vol] 10 mmol/L Normal 8-15 [facility] Comment on above: Order Comment: Speci men Type: BLOOD SPECIMENOrdering Facility: [facility] Address: [address] [place] [address] Performed By: #### 2 4321-2, 3015-3 ####[facility] LABIA [id number] [place] [address] [place] Calcium [Mass/Vol] 9.3 mg/dL Normal 8.5-10.2 [facility] Comment on above: Order Comment: Speci men Type: BLOOD SPECIMENOrdering Facility: [facility] Address: [address] [place] [address] Performed By: #### 2 4321-2, 3015-3 ####[facility] LABIA [id number] [place] [address] [place] Chloride [Moles/Vol] 104 mmol/L Normal 98-107 [facility] Comment on above: Order Comment: Speci men Type: BLOOD SPECIMENOrdering Facility: [facility] Address: [address] [place] [address] Performed By: #### 2 4321-2, 6-3 ####[facility] LABCLIA [id number] [place] [id number] [place] CO2 [Moles/Vol] 25 mmol/L Normal 22-30 [facility] Comment on above: Order Comment: Speci men Type: BLOOD SPECIMENOrdering Facility: [facility] Address: [address] [place] [address] Performed By: #### 2 4321-2, 3016-3 ####[facility] [id number] [address] [address] [place] Creatinine [Mass/Vol] 0.57 mg/dL Low 0.58-0.96 [facility] Comment on above: Order Comment: Speci men Type: BLOOD SPECIMENOrdering Facility: [facility] Address: [address] [place], [place] [address] Performed By: #### 2 4321-2, 6-3 ####[facility] [id number] [place] [id number] [place] Creatinine and Glomerular filtration rate.predicted panel (S/P/Bld) 119 mL/min/1.73m??? Normal >=60 [facility] Comment on above: Order Comment: Speci men Type: BLOOD SPECIMENOrdering Facility: [facility] Address: [address] [place] [address] Result Comment: Nemo mated Glomerular Filtration Rate (eGFR) is calculated using the 2020 CKD-EPI creatinine equation. This equation utilizes serum creatinine, sex, and age as parameters. The creatinine assay has traceable calibration to isotope dilution-mass spectrometry. Refer to KDIGO guidelines for clinical interpretation. In patients with unstable renal function, e.g. those with acute kidney injury, the eGFR may not accurately reflect actual GFR. Performed By: #### 2 4321-2, 6-3 ####[facility] LABIA [id number] [address] [address] [place] Glucose [Mass/Vol] 95 mg/dL Normal 74-99 [facility] Comment on above: Order Comment: Parisai men Type: BLOOD SPECIMENOrdering Facility: [facility] Address: [address] [place], [place] [address] Result Comment: The [place] Diabetes Association (ADA) provides guidance for cutoff values for fasting glucose and random glucose. The ADA defines fasting as no caloric intake for at least 8 hours. Fasting plasma glucose results between 100 to 125 mg/dL indicate increased risk for diabetes (prediabetes). Fasting plasma glucose results greater than or equal to 126 mg/dL meet the criteria for diagnosis of diabetes. In the absence of unequivocal hyperglycemia, results should be confirmed by repeat testing. In a patient with classic symptoms of hyperglycemia or hyperglycemic crisis, random plasma glucose results greater than or equal to 200 mg/dL meet the criteria for diagnosis of diabetes. Reference: Standards of Medical Care in Diabetes 2016, [place] Diabetes Association. Diabetes Care. 2016.39(Suppl 1). Performed By: #### 2 4321-2, 3015-3 ####[facility] LABCLIA [id number] [place] [address] [place] Potassium [Moles/Vol] 4.3 mmol/L Normal 3.7-5.1 [facility] Comment on above: Order Comment: Speci men Type: BLOOD SPECIMENOrdering Facility: [facility] Address: [address] [place] [address] Performed By: #### 2 4320-08, 3 ####[facility] LABCLIA [id number] [place] [address] [place] Sodium [Moles/Vol] 139 mmol/L Normal 136-144 [facility] Comment on above: Order Comment: Speci men Type: BLOOD SPECIMENOrdering Facility: [facility] Address: [address] [place] [address] Performed By: #### 2 4320-08, 3 ####[facility] LABCLIA [id number] [address] [address] [place] Urea nitrogen [Mass/Vol] 6 mg/dL Low 7-21 [facility] Comment on above: Order Comment: Speci men Type: BLOOD SPECIMENOrdering Facility: [facility] Address: [address] [place] [address] Performed By: #### 2 4320-2, 3015-3 ####[facility] LABCLIA [id number] [place] [address] [place] CBC panel Auto (Bld)on 12-06 Erythrocyte distribution width (RBC) [Ratio] 12.5 % Normal 11.5-15.0 [facility] Comment on above: Order Comment: Speci men Type: BLOOD SPECIMENOrdering Facility: [facility] Address: [address] [place] [address] Performed By: #### 5 8410-2 ####[facility] [id number] [place] [address] [place] Hematocrit (Bld) [Volume fraction] 44.5 % Normal 36.0-46.0 [facility] Comment on above: Order Comment: Speci men Type: BLOOD SPECIMENOrdering Facility: [facility] Address: [address] [place] [address] Performed By: #### 5 8410-2 ####[facility] [id number] [address] [place] Hemoglobin (Bld) [Mass/Vol] 14.9 g/dL Normal 11.5-15.5 [facility] Comment on above: Order Comment: Speci men Type: BLOOD SPECIMENOrdering Facility: [facility] Address: [address] [place] [address] Performed By: #### 5 8410-2 ####[facility] [id number] [place] [address] [place] MCH (RBC) [Entitic mass] 30.0 pg Normal 26.0-34.0 [facility] Comment on above: Order Comment: Speci men Type: BLOOD SPECIMENOrdering Facility: [facility] Address: [address] [place] [address] Performed By: #### 5 8410-2 ####[facility] [id number] [place] [address] [place] MCHC (RBC) [Mass/Vol] 33.5 g/dL Normal 30.5-36.0 [facility] Comment on above: Order Comment: Speci men Type: BLOOD SPECIMENOrdering Facility: [facility] Address: [address] [place] [address] Performed By: #### 5 8410-2 ####[facility] LABCLIA [id number] [place] [address] [place] MCV (RBC) [Entitic vol] 89.7 fL Normal 80.0-100.0 [facility] Comment on above: Order Comment: Speci men Type: BLOOD SPECIMENOrdering Facility: [facility] Address: [address] [place] [address] Performed By: #### 5 8410-2 ####[facility] LABIA [id number] [place] [address] [place] Nucleated RBC (Bld) [#/Vol] 10*3/uL Normal <0.01 [facility] Comment on above: Order Comment: Speci men Type: BLOOD SPECIMENOrdering Facility: [facility] Address: [address] [place] [address] Performed By: #### 5 8410-2 ####[facility] LABIA [id number] [place] [address] [place] Platelet mean volume (Bld) [Entitic vol] 9.8 fL Normal 9.0-12.7 [facility] Comment on above: Order Comment: Speci men Type: BLOOD SPECIMENOrdering Facility: [facility] Address: [address] [place] [address] Performed By: #### 5 8410-2 ####[facility] LABCLIA [id number] [place] [address] [place] Platelets (Bld) [#/Vol] 276 10*3/uL Normal 150-400 [facility] Comment on above: Order Comment: Speci men Type: BLOOD SPECIMENOrdering Facility: [facility] Address: [address] [place] [address] Performed By: #### 5 8410-2 ####[facility] LABIA [id number] [place] [address] [place] RBC (Bld) [#/Vol] 4.96 10*6/uL Normal 3.90-5.20 [facility] Comment on above: Order Comment: Speci men Type: BLOOD SPECIMENOrdering Facility: [facility] Address: [address] [place] [address] Performed By: #### 5 8410-2 ####[facility] LABIA [id number] [place] [address] [place] WBC (Bld) [#/Vol] 8.00 10*3/uL Normal 3.70-11.00 [facility] Comment on above: Order Comment: Speci men Type: BLOOD SPECIMENOrdering Facility: [facility] Address: [address] [place] [address] Performed By: #### 5 8410-2 ####[facility] LABIA [id number] [address] [place] Jose Maria 12-06-2024 CNOV Office Visit (JOSEY ) SIMA KEEN ([id number]) 1985 F Date Time Provider Department 12/06/24 12:30 PM JEYSON BUSTAMANTE During your visit today, we recorded the following information about you: Pulse Blood pressure Weight Height 75/minute 112/74 71.3 kg 1.711 m Last Period 12/05/24 Donavan Cerda MA 12/06/2024 12:26 PM Signed Thank you for choosing the [facility] Department of Endocrinology, Diabetes and Metabolism. Did you know that you need to call 48 hours in advance of your scheduled visit, if you are unable to make your appointment? The Endocrinology and Metabolism [place] thanks you for your commitment, because patients not showing to their appointment results in a lost opportunity for patients to receive world class health care at the [facility]. To Cancel an appointment, please choose one of the following: - Call the Appointment Call Center at [phone] - From [employer], Go to Appointments - Cancel Appts If cancelling, consider your need to reschedule to prevent further delays in your care. To Schedule an appointment, please choose one of the following: - Call the Appointment Call Center at [phone] - From [employer], Go to Appointments - Request an Appt Jeyson Bustamante MD 12/06/2024 2:47 PM Signed I saw your patient Sima Keen for evaluation of right sided masses in the setting of undergoing a prior right thyroid lobectomy for early thyroid cancer. Woman who generally has been in excellent health. In 2020 she was evaluated for right sided thyroid nodule that sonographically was a 1.6 cm TI-RADS 5 lesion. Fine-needle aspiration was interpreted as benign but given its suspicious sonographic appearance she underwent a right thyroid lobectomy. This was performed on 06/23/2021. Review of that operative note dictated on the day of surgery by the attending physician describes an uncomplicated right thyroid lobectomy. The right parathyroid glands were identified. The right recurrent regional nerve was intact per nerve monitoring. The contralateral left lobe was left in place. 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 Those slides have been reviewed here at the [facility] and feel that some of the features make this a more classic type papillary cancer. No lymph nodes or parathyroids were included with the specimen. She had not been placed on thyroid hormone medication and I have multiple TSH values done over the past couple years that are in the mid 2 range. Most recently on 08/30/2024 the TSH measured 2.25. She had been undergoing sonographic surveillance. In April 2023 no abnormal tissue was described in it within the right thyroid bed. A follow-up ultrasound done on 10/04/2024 described a 2.1 x 1.4 x 1.3 cm hypoechoic area within the right thyroid bed and an additional 1.3 cm nodule more inferior closer to the region of the thyroid isthmus. She underwent fine-needle aspiration of both of these that revealed atypia of undetermined significance. Both were submitted for Afirma molecular profiling and were in the suspicious category. Those cytologic slides have been reviewed viewed here at the [facility] and agree with the interpretation of atypia of undetermined significance. In the office today she is well-appearing. She has a well-healed transverse cervical incision. Palpation of the neck shows no palpable tissue within the right thyroid bed. The left thyroid lobe is moderately enlarged easily palpable without discrete nodules. I can appreciate no palpable nodes in either side of the neck. Ultrasound examination was performed in the office this demonstrates a left thyroid lobe that is approximately 2 fold enlarged. It is of a slightly heterogeneous echotexture. There are no nodules within this left thyroid lobe. Within the right thyroid bed is a more dominant 1.3 cm almost spherical hypoechoic nodule and an adjacent 4 mm nodule just cephalad to this. In addition in the region of the thyroid isthmus is a similar-appearing hypoechoic structure measuring approximately 1.3 cm. The structures do not demonstrate increased color flow Doppler signal nor any internal calcifications. I can appreciate no worrisome lymph nodes in either jugular chain. Feel the patient's evaluation has been entirely appropriate to date. In summary she has 2 nodules that have developed demonstrating thyroid tissue with atypia of undetermined significance and a suspicious molecular profiling assay. These areas do not appear typical for aidan metastases. On occasion, hyperplastic thyroid tissue may have this appearance and biopsy finding. After discussions with the patient, my plan would be to excise these areas within the right central neck compartment. If on froze (more content not included)... Normal [facility] TSH SerPl-aCncon 12-06-2024 TSH Qn 2.250 m[IU]/L Normal 0.270-4.20 0 [facility] Comment on above: Order Comment: Speci men Type: BLOOD SPECIMENOrdering Facility: [facility] Address: [address] [place] [address] Result Comment: If t he patient is , TSH reference range varies by gestational period: First Trimester (weeks 9-12): 0.180-2.990 mIU/L Second Trimester: 0.110-3.980 mIU/L Third Trimester: 0.480-4.710 mIU/L Andrew Garcia et al. A Practical Approach for the Verifications and Determination of Site- and Trimester-Specific Reference Intervals for Thyroid Function tests in . Thyroid, 2019:29:3:412-420. Isaac Yip, et al. 2017 Guidelines of the [place] Thyroid Association for the Diagnosis and Management of Thyroid Disease during and the . Thyroid, 2017:27:3:315-389. Performed By: #### 2 4321-2, 3016-3 ####[facility] LABCLIA [id number] [facility] [id number], [place] [address] [place] [facility] Thyroglobulin and Thyrogobul in Ab panelon 12-06-2024 Thyroglobulin Ab Qn 3.4 [IU]/mL Normal <4.0 [facility] Comment on above: Order Comment: Speci men Type: BLOOD SPECIMENOrdering Facility: [facility] Address: [address] [place] [address] Result Comment: The Thyroglobulin Antibody test was performed using the [employer] DXI paramagnetic particle chemiluminescent immunoassay method. Results obtained with different assay methods or kits cannot be used interchangeably. Performed By: #### 5 7780-9 ####[facility] LABCLIA [id number] [facility] [id number], [place] [address] [facility] THYROGLOBULIN, SERUM 27.6 ng/mL Normal 1.6-50.0 [facility] Comment on above: Order Comment: Speci men Type: BLOOD SPECIMENOrdering Facility: [facility] Address: [address] [place] [address] Result Comment: The Thyroglobulin test was performed using the [employer] DXI paramagnetic particle chemiluminescent immunoassay method. Results obtained with different assay methods or kits cannot be used interchangeably. Performed By: #### 5 7780-9 ####[facility] LABCLIA [id number] [facility] [id number], [place] [address] [place] US Thyroid glandon [facility] Radiology Study observation (narrative) [facility] OUTSIDE CYTOLOGY SLIDE REVIE Won 11-27-2024 AP DISCLAIMER Normal [facility] Comment on above: Order Comment: Speci men Type: FORMALIN-FIXED PARAFFIN-EMBEDDED TISSUE SPECIMENOrdering Facility: AP Outside Review Address: , , Result Comment: Dennis raine Developed Test (LDT) Disclaimer: Performance characteristics of immunohistochemical, immunofluorescent, and chromogenic in-situ hybridization tests have been determined by the performing laboratory within [facility]'s [facility] Pathology and Laboratory Medicine Department ([facility], [facility], [facility], [facility], [facility], [facility], or [facility]) in a manner consistent with CLIA requirements. One or more of these tests may not have been cleared or approved by the FDA. [facility] is regulated under CLIA as qualified to perform high-complexity testing. These tests are used for clinical purposes. These should not be regarded as investigational or for research. Positive and negative controls stain appropriately. Performed By: #### L [id number] ####[facility] LABCLIA [id number] [address] [place] CASE REPORT Normal [facility] Comment on above: Order Comment: Speci men Type: FORMALIN-FIXED PARAFFIN-EMBEDDED TISSUE SPECIMENOrdering Facility: AP Outside Review Address: , , Result Comment: [facility] Cytology Report Case: [id number] Authorizing Provider: Jeyson Bustamante MD Collected: 11/27/2024 09:38 PM Ordering Location: [facility] Received: 11/27/2024 09:[address] [facility] Pathologist: Anabel Suarez MD Specimens: A) - Slide(s), RIGHT SUPERIOR LATERAL THYROID NODULE, FINE NEEDLE ASPIRATION, 6 OUTSIDE SLIDES, ([id number]), 10/04/2024 B) - Slide(s), RIGHT INFERIOR MEDIAL THYROID NODULE, FINE NEEDLE ASPIRATION, 6 OUTSIDE SLIDES, ([id number] B), 10/04/2024 Performed By: #### L [id number] ####[facility] LABCLIA [id number] [address] [address] [place] DIAGNOSIS COMMENT Aspirates from both thyroid nodules are limited by low cellularity and air drying. Both show cytologic atypia which is more apparent in the sample from the right inferior medial thyroid FNA (part B). The atypical cells in this sample are present in the background of a cyst. Normal [facility] Comment on above: Order Comment: Speci violetta Type: FORMALIN-FIXED PARAFFIN-EMBEDDED TISSUE SPECIMENOrdering Facility: AP Outside Review Address: , , Performed By: #### L [id number] ####[facility] LABCLIA [id number] [address] FINAL DIAGNOSIS Normal [facility] Comment on above: Order Comment: Speci men Type: FORMALIN-FIXED PARAFFIN-EMBEDDED TISSUE SPECIMENOrdering Facility: AP Outside Review Address: , , Result Comment: A - Slide(s) - RIGHT SUPERIOR LATERAL THYROID NODULE, FINE NEEDLE ASPIRATION, 6 OUTSIDE SLIDES, ([id number] A), 10/04/2024 Atypia of undetermined significance (see comment). Very limited cellularity - predominantly blood. B - Slide(s) - RIGHT INFERIOR MEDIAL THYROID NODULE, FINE NEEDLE ASPIRATION, 6 OUTSIDE SLIDES, ([id number] B), 10/04/2024 Atypia of undetermined significance (see comment). Limited cellularity. Cyst contents. at 1520 EDT Performed By: #### L [id number] ####[facility] LABCLIA [id number] [address] FINAL PERFORMING LAB Normal [facility] Comment on above: Order Comment: Xavier shipley Type: FORMALIN-FIXED PARAFFIN-EMBEDDED TISSUE SPECIMENOrdering Facility: AP Outside Review Address: , , Result Comment: Tech nical component, security systems specialist screening performed at: [facility], [address] [place] [address] CLIA: [id number] Diagnostic interpretation performed at: [facility], [address] [place] [address] CLIA# [id number] Venipuncturist: Nilton Le MD Performed By: #### L [id number] ####[facility] LABIA [id number] [address] [address] [place] OUTSIDE SURG PATH SLIDE REVI EWon 11-27-2024 AP DISCLAIMER Normal [facility] Comment on above: Order Comment: Speci men Type: FORMALIN-FIXED PARAFFIN-EMBEDDED TISSUE SPECIMENOrdering Facility: AP Outside Review Address: , , Result Comment: Dennis ni Developed Test (LDT) Disclaimer: Performance characteristics of immunohistochemical, immunofluorescent, and chromogenic in-situ hybridization tests have been determined by the performing laboratory within [facility]'s [facility] Pathology and Laboratory Medicine Department ([facility], [facility], [facility], [facility], [facility], [facility], or [facility]) in a manner consistent with CLIA requirements. One or more of these tests may not have been cleared or approved by the FDA. RT-PLM is regulated under CLIA as qualified to perform high-complexity testing. These tests are used for clinical purposes. These should not be regarded as investigational or for research. Positive and negative controls stain appropriately. Performed By: #### L [id number] ####[facility] LABIA [id number] [place] [id number] [place] CASE REPORT Normal [facility] Comment on above: Order Comment: Speci men Type: FORMALIN-FIXED PARAFFIN-EMBEDDED TISSUE SPECIMENOrdering Facility: AP Outside Review Address: , , Result Comment: Surg [facility] Pathology Report Case: [id number] Authorizing Provider: Jeyson Bustamante MD Collected: 11/27/2024 10:53 PM Ordering Location: [facility] Main Received: 11/27/2024 10:53 PM [facility] Pathologist: Latrell Mantilla MD Specimen: Slide(s), 28 SLIDES, [id number] Performed By: #### L [id number] ####[facility] LABCLIA [id number] [address] [address] [place] DIAGNOSIS COMMENT The right lobe conta ins a 1.8 cm invasive papillary thyroid carcinoma, classic (conventional) subtype (per outside gross description: present in slides 1 to 7). While this tumor has a predominantly infiltrative follicular growth pattern there are psammoma bodies, focal papillae and overt nuclear changes that allow for classification as a classic (conventional) subtype. Lymphatic invasion is identified in association with the 1.8 cm focus. Two additional foci of papillary thyroid carcinoma (0.7 cm slide 8, 0.3 cm slide 10) are also noted, it is unclear if these foci are connected to the main tumor or represent separate additional primaries or lymphatic invasion from the main tumor. No angio(vascular) invasion, significant mitotic activity, tumor necrosis or extrathyroidal extension is identified. The pathologic stage is pT1bNX. Dr. Jaycob Vázquez has reviewed select slides of this case and agrees with the diagnosis. Normal [facility] Comment on above: Order Comment: Speci men Type: FORMALIN-FIXED PARAFFIN-EMBEDDED TISSUE SPECIMENOrdering Facility: AP Outside Review Address: , , Performed By: #### L [id number] ####[facility] LABCLIA [id number] [address] FINAL DIAGNOSIS Normal [facility] Comment on above: Order Comment: Speci men Type: FORMALIN-FIXED PARAFFIN-EMBEDDED TISSUE SPECIMENOrdering Facility: AP Outside Review Address: , , Result Comment: A. R ight thyroid lobe, lobectomy and isthmusectomy ([id number]): - Invasive papillary thyroid carcinoma, classic (conventional) subtype with fibrosis, 1.8 cm (See comment). at 1447 EDT Performed By: #### L [id number] ####[facility] LABCLIA [id number] [address] FINAL PERFORMING LAB Normal [facility] Comment on above: Order Comment: Speci men Type: FORMALIN-FIXED PARAFFIN-EMBEDDED TISSUE SPECIMENOrdering Facility: AP Outside Review Address: , , Result Comment: Diag nostic interpretation performed at: [facility], [address] [facility] [place] [id number] CLIA# [id number] Venipuncturist: Nilton Le MD Performed By: #### L [id number] ####[facility] [id number] [place] [id number] [facility] CNPMerary 11-22-2024 CNPN Telephone (ENSUMN) SIMA KEEN ([id number]) 1985 F Date Time Provider Department 11/22/24 JEYSON BUSTAMANTE During your visit today, we recorded the following information about you: Luisa White 11/22/2024 4:58 PM Signed 11/22/2024 INTAKE PENDING(SPOKE WITH PT.)-PER PT. SPOKE WITH FOSTER SEVERAL TIMES AND EVERYTHING SHOULD BE IN HER CHART. 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 PATIENT PHYSICIAN INFORMATION Referring Doctor: Dr.Michael Cano Address: Phone: Manager Interventional: Dr.Michael Cano Address: Phone: PCP: To use this Smartlink, specify the provider ID whose address you want to display, e.g., .PROVADDR[1 (where 1 is the provider ID). PAST TREATMENT Office notes: NONE AVAILABLE Medications: NONE THAT APPLY Pre-Visit Testing STUDY/TEST DATE ORDERED/REQUESTED DATE RECEIVED/COMPLETED ENTIRE PANEL TSH Per pt. Done 08/2024 FREE T4 FREE T3 Imaging Reports: SEE [facility] CD of Images: SEE EPIC FNA: YES 2020 FNA Slides: Has the patient ever had thyroid or parathyroid surgery before: YES PARTIAL THYROIDECTOMY Operative Reports: NONE AVAILABLE Pathology Reports: NONE AVAILABLE Allergies As of Date: 11/22/2024 (Not on File) Date Reviewed: Never Reviewed Reason for Visit: Consult [173] Cmt: FACE SHEET Problem List As Of Date: 11/22/2024 (None) Encounter Status:Closed by LUISA WHITE on 11/22/[address] [facility] Marlo 10-26-2024 CNPN Telephone (ENSUMN) LEONILASIMAHER RINCON ([id number]) 1985 F Date Time Provider Department 10/26/24 JEYSON BUSTAMANTE During your visit today, we recorded the following information about you: Joya Escobar 10/26/2024 8:17 AM Signed Indexed referral for Dr. Bustamante for thyroid nodule. Please reach out to patient to schedule. Joya Escobar 11/23/2024 2:34 PM Signed Indexed notes/labs to patients chart for review Allergies As of Date: 10/26/2024 (Not on File) Date Reviewed: Never Reviewed Reason for Visit: Outside Referral Requests [4103] Problem List As Of Date: 10/26/2024 (None) Encounter Status:Closed by JOYA ESCOBAR on 10/26/[address] [facility] EGD Reporton 10-26-[address] [facility] Medical Records Department [address] [place] [address] EGD Report MR#: [id number] Acct: [id number] Name: SIMA KEEN Rep #: [id number] : 1985 39 From: David Cano MD PCP: ANIBAL Workman Status:[facility] Patient Name: Sima Keen Procedure Date: 10/26/2024 9:27 AM Date of : 1985 Age: 39 Procedure: Upper GI endoscopy Indications: Dysphagia, Follow-up of eosinophilic esophagitis Providers: David Cano MD Referring MD: Alanis Batista Medicines: See the Anesthesia note for documentation of the administered medications Patient Profile: Refer to note in patient chart for documentation of history and physical. Complications: No immediate complications. Estimated blood loss: Minimal. Procedure: Pre-Anesthesia Assessment: - The heart rate, respiratory rate, oxygen saturations, blood pressure, adequacy of pulmonary ventilation, and response to care were monitored throughout the procedure. After obtaining informed consent, the endoscope was passed under direct vision. Throughout the procedure, the patient's blood pressure, pulse, and oxygen saturations were monitored continuously. The gastroscope was introduced through the mouth, and advanced to the second part of duodenum. The upper GI endoscopy was accomplished without difficulty. The patient tolerated the procedure well. Scope In: 9:43:39 AM Scope Out: 10:12:13 AM Total Procedure Duration Time 0 hours 28 minutes 34 seconds Findings: Localized nodular mucosa was found in the duodenal bulb. Biopsies were taken with a cold forceps for histology. Estimated blood loss was minimal. Localized mild inflammation characterized by erythema was found in the gastric antrum. Biopsies were taken with a cold forceps for histology. Estimated blood loss was minimal. The cardia and gastric fundus were normal on retroflexion. The Z-line was regular and was found 41 cm from the incisors. No biopsies or other specimens were collected for this exam. Multiple 3 to 7 mm plaques were found in the middle third of the esophagus and in the lower third of the esophagus. Biopsies were taken with a cold forceps for histology. Estimated blood loss: 3 mL requiring treatment with coagulation. The exam was otherwise without abnormality. Impression: - Nodular mucosa in the duodenal bulb. Biopsied. - Gastritis. Biopsied. - Z-line regular, 41 cm from the incisors. No specimens collected. 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 Biopsied. - The examination was otherwise normal. Recommendation: - Discharge patient to home (via wheelchair). - Soft diet today. - No aspirin, ibuprofen, naproxen, or other non-steroidal anti-inflammatory drugs for 2 days after biopsy. - Await pathology results. Procedure Code(s): --- Professional --- 22331, Esophagogastroduodenoscopy, flexible, transoral; with biopsy, single or multiple Diagnosis Code(s): --- Professional --- K31.89, Other diseases of stomach and duodenum K29.70, Gastritis, unspecified, without bleeding K22.89, Other specified disease of esophagus R13.10, Dysphagia, unspecified K20.0, Eosinophilic esophagitis CPT copyright 2021 [employer]. All rights reserved. The codes documented in this report are preliminary and upon cold meat cook review may be revised to meet current compliance requirements. David Cano MD 10/26/2024 10:21:30 AM This report has been signed electronically. Number of Addenda: 0 Note Initiated On: 10/26/2024 9:27 AM 10/26/241020 Date David Cano MD [facility] Signature: Date (if indicated) CC: Dr. David Cano MD; ANIBAL Workman Date Dictated: 10/26/24926 Date Transcribed: [employer] Manager: MIGDALIA Signed [facility] Immunohistochemical Stainson 10-26-2024 Immunohistochemical Stains Patient Age/Sex Location Account Attending Physician SIMA KEEN 39/F EN [id number] Dr. David Cano MD Specimen: [id number] Received: 10/26/24 Status: AZRA Gale Num: [id number] Spec Type: EGD BIOPSY Subm Dr: Dr. David Cano MD HEADER OPERATION: EGD, biopsy, electrohemostasis PRE-OP DIAGNOSIS: Eosinophilic esophagitis, dysphagia, thyroid cancer TISSUE SUBMITTED: A- Duodenal bulb nodule mucosa biopsy, B- Antrum biopsy,C- Distal esophageal plaque biopsy, D- Mid esophageal plaque biopsy MICROSCOPIC DIAGNOSIS A. Small intestine, duodenum bulb nodule, biopsy: * Benign small bowel mucosa with prominent Fernando's glands B. Stomach, antrum, biopsy: * Antral mucosa with mild chronic inflammation * The immunostain for Helicobacter pylori organisms is negative C. Distal esophagus, plaque, biopsy: * Benign squamous epithelium with increased eosinophils, >20/HPF (See comment) D. Mid esophagus, plaque, biopsy: * Benign squamous epithelium with increased eosinophils, >20/HPF (See comment) COMMENT In part C and D, the findings are compatible with eosinophilic esophagitis MICROSCOPIC DESCRIPTION Slides are reviewed. These tests were developed and their performance characteristics determined by [facility]. They may not have been cleared or approved by the U.S. Food and Drug Administration. The FDA has determined that such clearance or approval is not necessary. The above immunohistochemical/dualISH markers are ordered and reviewed by the Pathologist. GROSS DESCRIPTION A. Received in formalin in a container labeled with the patient's name, date of , and duodenal bulb nodule mucosa biopsy is a 0.4 x 0.3 x 0.2 cm fragment of judge-pink mucosal tissue. Submitted in toto in A1. B. Received in formalin in a container labeled with the patient's name, date of , and antrum biopsy are 2 judge-pink fragments of mucosal tissue measuring 0.2 x 0.2 x 0.2 cm and 0.4 x 0.4 x 0.2 cm. Submitted in toto in B1. Patient Age/Sex Location Account Attending Physician SIMA KEEN 39/F EN [id number] Dr. David Cano MD C. Received in formalin in a container labeled with the patient's name, date of , and distal esophageal plaque biopsy are multiple judge-pink fragments of soft tissue measuring 0.7 x 0.7 x 0.2 cm in aggregate. Submitted in toto in C1. D. Received in formalin in a container labeled with the patient's name, date of , and mid esophageal plaque biopsy are multiple judge-pink fragments of soft tissue measuring 1.1 x 0.6 x 0.2 cm in aggregate. Submitted in toto in D1. [facility] 10/27/2024 CPT:90251c3,79283 Patient Age/Sex Location Account Attending Physician SIMA KEEN 39/F EN [id number] Dr. David Cano MD Signed (signature on file) Dr. Nelda Reilly DO 10/27/24 1414 Normal [facility] Comment on above: Performed By: #### P [facility] #### [facility] [address] [place], [address] MR/POSTOP.ANEon 10-26-2024 MR/POSTOP.ANE [facility] Medical Records Department [address] [place] [address] Anesthesia Postop Eval I 10/26/24 1029 MR#: [id number] Acct: [id number] Name: SIMA KEENE Rep #: [id number] : 1985 39 From: Vince Gomez PCP: ANIBAL Workman Status:REG [facility] Race: [facility] Location: [place] [address] Anesthesia: Postop Eval I Current Vital Signs Temperature: 97.9 F Pulse Rate: 79 Blood Pressure: 99/54 Respiratory Rate: 16 Pulse Ox: 97 Oxygen Delivery Method: Room Air Assessment Airway patent: Yes Spontaneous unlabored respirations: Yes Mental status: Awake and Calm nausea: No Vomiting: No Anesthesia Complication: No Fluid Hydration Crystalloid volume administer (ml): 75 Total IV fluid infused: 75 Progress Note Anesthesia document: Postop Eval 1 completed: Yes 10/26/24 1030 Date Vince Naranjo Signature: Date CC: Signed Normal [facility] MR/[id number] 10-26-2024 MR/POSTOPAN2 [facility] Medical Records Department [address] [place] [address] Anesthesia Postop Eval II 10/26/24 1051 MR#: [id number] Acct: [id number] Name: SIMA KEEN Rep #: [id number] : 1985 39 From: Elliott Reynaga MD PCP: ANIBAL Workman Status:REG [facility] Y Race: UTD Location: [place] [address] Anesthesia Postop Eval I Sum Postop Eval Completion status Anesthesia document: Postop Eval 1 completed: Yes Anesthesia Postop Eval I Summary Anesthesia Postop Eval I Summary: Anesthesia Postop Eval I: Assessment Summary Airway patent Yes 10/26/24 10:30 [email or web address] Spontaneous unlabored Yes 10/26/24 10:30 [email or web address] respirations Mental status Awake,Calm 10/26/24 10:30 [email or web address] nausea No 10/26/24 10:30 [email or web address] Vomiting No 10/26/24 10:30 [email or web address] Anesthesia Postop Eval I: Fluid Summary Crystalloid volume administer 75 10/26/24 10:30 [email or web address] (ml) Colloids volume administered ( ml) Blood Product volume administered (ml) Total IV fluid infused 75 10/26/24 10:30 [email or web address] Anesthesia Postop Eval I: Summary Notes Anesthesia Complication No 10/26/24 10:30 [email or web address] Anesthesia Complication Comment: Post-operative progress note Anesthesia: Postop Eval II Evaluation Mental status: Awake and Calm Pain Level: 0 nausea: No Vomiting: No Complications Anesthesia Complication: No 10/26/24 1052 Date Elliott Reynaga MD Cosign Signature: Date CC: Signed Normal [facility] ,Urineon 10-26-2024 Beta HCG ( test) Ql (U) Negative Normal [facility] Comment on above: Result Comment: Very dilute urine specimens, as indicated by a low specific gravity, may not contain direct customer service representative levels of hCG. If is still suspected, a first morning urine specimen should be collected 48 hours later and tested. Performed By: #### L [id number] #### [facility] [place], [address] Urine testOrdered By: Pete Faria on 10-26-2024 HCG ( test) Ql (U) Negative [facility] Comment on above: Very dilute urine sp ecimens, as indicated by a low specificgravity, may not contain direct customer service representative levels of hCG. If is still suspected, a first morning urinespecimen should be collected 48 hours later and tested. Head/Neck Soft Tissueon 04-0 Head/Neck Soft Tissue [facility] Imaging Services [address] [place] [address] Head/Neck Soft Tissue MR#: [id number] Acct: [id number] Name: SIMA KEEN Rep #: [id number] : 1985 F 39 From: Don Chaudhary DO PCP: ANIBAL Workman Status: REG CLI Study: Head/Neck Soft Tissue Date of Exam: 10/20/24 Exam# [id number] Ordering Dr: David Cano MD EXAM: Ultrasound head/neck soft tissue CLINICAL HISTORY: Malignant neoplasm of thyroid status post right thyroid lobectomy. Study is for lymph node mapping. COMPARISON: Ultrasound thyroid of 09/04/2024. TECHNIQUE: Real-time grayscale and color ultrasound of the soft tissues of the right neck and left neck. FINDINGS: 7 lymph nodes are identified in the right and left neck. A zone 2 lymph node measures 2.3 cm length by 2.1 cm x 0.5 cm AP. A zone 3 lymph node measures 1.6 cm length by 0.4 cm x 0.2 cm AP a zone 6 A zone 6 lymph node measures 0.9 x 0.3 x 0.3. Another zone 6 lymph node measures 1.2 0.9 x 0.5 cm. In the left neck, a zone 1 lymph node measures 0.7 x 0.6 x 0.5 cm. This is a lymph node with a round shape. In zone 6, there is a 2.1 cm x 0.5 x 0.4 cm lymph node. Also in zone 6, a 1.0 cm x 0.8 x 0.5 cm lymph node is seen with slightly thickened cortex US/Head/Neck Soft Tissue IMPRESSION: Multiple right and left neck lymph nodes are identified with measurements and location given above. Reading [facility] CC: Dr. David Cano MD; ANIBAL Workman [employer] Manager: Signed Normal [facility] Non-gynecologic cytology rep ortOrdered By: Ramsey Sinclair on 10-10-2024 Study report [facility] Other Phone: Special Stain Group IIon Special Stain Group II Patient Age/Sex Location Account Attending Physician SIMA KEEN 39/F LABSPEC [id number] Dr. David Cano MD Specimen: [id number] Received: 10/04/24 Status: AZRA Gale Num: [id number] Spec Type: Fluid Subm Dr: Dr. David Cano MD HEADER OPERATION: Fine needle aspiration of right thyroid nodule x2 PRE-OP DIAGNOSIS: Right thyroid nodule TISSUE SUBMITTED: A- Right superior lateral thyroid nodule fluid and smears, B- Right inferior medial thyroid nodule fluid and smears DIAGNOSIS CYTOLOGY A. Right superior lateral thyroid nodule, cytology and cell block:Atypia of undetermined significanceFollicular cells present with nuclear grooves B. Right inferior medial thyroid nodule, cytology and cell block:Atypia of undetermined significanceFollicular cells showing nuclear crowding nuclear grooves and irregular nuclear contours (see comment) COMMENT This specimen will be sent for Afirma testing and the results will be reported separatelyJ Yahir IGNACIO, 10/10/2024 CYTOLOGY STUDY Slides are reviewed. CYTOLOGY GROSS A. Received is 30 ml of red-cloudy fluid labeled with the patient's name and and designated per the requisition as Right superior lateral thyroid nodule. Submitted for cytology preparation. B. Received is 30 ml of red-cloudy fluid labeled with the patient's name and and designated per the requisition as Right inferior medial thyroid nodule. Submitted for cytology preparation. 10/05/2024 CPT: 48787 x2, TC:5 ADDENDUM Patient Age/Sex Location Account Attending Physician [facility] KEEN 39[facility] [id number] Dr. David Cano MD ADDENDUM (Continued) Addendum 2 Entered: 11/30/24-1001 This addendum is added to incorporate an outside pathology consultation report. The case was examined at [facility] by Dr. Suarez (#[id number]) and the following diagnosis was rendered. A. Right superior lateral thyroid nodule, fine needle aspiration: Atypia of undetermined significance (see comment). Very limited cellularity - predominantly blood. B. Right inferior medial thyroid nodule, fine needle aspiration: Atypia of undetermined significance (see comment). Limited cellularity. Cyst contents. COMMENT: Aspirates from both thyroid nodules are limited by low cellularity and air drying. Both show cytologic atypia which is more apparent in the sample from the right inferior medial thyroid FNA (part B). The atypical cells in this sample are present in the background of a cyst. Please see complete above mentioned consultation report in EMR Addendum Signed (signature on file) Dr. Anusha Jay MD 11/30/24 1002 Addendum 1 Entered: 10/23/24 AFIRMA RESULTS REPORT - A RESULTS INTERPRETATION: The result of this 2.2 cm Salis[place] III nodule A is Afirma GSC suspicious which suggests a risk of cancer of approximately 50%. The risk of malignancy of a GSC suspicious Afirma XA negative sample remains approximately 50%. Clinical correlation and surgical resection should be considered. Please see complete report in e-chart or EMR Addendum Signed (signature on file) Dr. Anusha Jay MD 10/23/24 1129 Signed (signature on file) Dr. Ramsey Sinclair MD 10/10/24 1332 Normal [facility] Comment on above: Performed By: #### P SSII #### [facility] [address] [place], [address] Surgery Visit Reporton 10-04 Surgery Visit Report [facility] [address] [place], [place] [address] OFFICE VISIT Date of Service: 10/04/24 MR#: [id number] Acct: [id number] Name: SIMA KEEN Rep #: [id number] : 1985 Provider: Dr. David jones MD Age/Sex: 39/F Location: [facility] Status: Signed Intake Vital Signs 12/09/23 09:44 10/04/24 13:16 Height 5 ft 7 in 5 ft 7 in Weight: 159 lb BMI 24.9 BP 126/86 H Blood Pressure Location Rt brachial Position Sitting Respiration 17 Pulse 90 Pulse Source Monitor Pulse Oximetry (%) 99 Oxygen Delivery Method room air Intake Visit Reasons: THYROID NODULE Chief Complaint: thyroid nodule Is patient in pain?: No Allergies [facility] Allergy (Verified 10/04/24 13:17) Rash Medications ???Medication ???Instructions ???Recorded ???Confirmed ???Type multivitamin (Daily Multi-Vitamin 1 tab PO DAILY 05/05/23 10/04/24 History tablet) hydroxyzine HCl 25 mg tablet 25 mg PO BID PRN 10/04/24 10/04/24 History PFSH Medical History Thyroid cancer Wears contact lenses Alcohol use Gastric reflux Asthma Non-smoker Chest pain Thyroid nodule Acid reflux Surgical History History of esophagogastroduodenoscopy (EGD) History of lobectomy of thyroid Hx of oral surgery Hx of wisdom tooth extraction H/O section Family History Grandmother Cancer Thyroid disorder Social History Smoking Status: Never smoker alcohol intake: current alcohol intake frequency: a few times a month HPI HPI HPI: Patient is a 39-year-old female who makes consultation related to newly???discovered right thyroid bed nodule status post right thyroid lobectomy on 06/23/2021 with me for 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 Surveillance visits were conducted with both myself and endocrinology with a most recent thyroid ultrasound occurring April 2023 that demonstrated no thyroid tissue of the surgical bed on the right. Patient states a couple of months ago that she began experiencing a fullness of her throat and finding that with swallowing sometimes food got stuck. She does distinguish this from her experience with eosinophilic esophagitis which I have also been managing after we diagnosing with endoscopy. She recalls a recent physical exam with her primary care provider, ANIBAL Silva and it was noted that no ultrasound of her neck had been performed recently so this was ordered???ultimately leading to the findings which occasion her visit today. Notably, Mrs. Keen denies any recent voice changes or snoring. She does share that she continues to have a cough despite otherwise resolving an illness with upper respiratory tract infection symptoms 3 weeks ago. She was never formally diagnosed but suggests this was may be the flu. ROS General General: Yes weight change; No appetite, fatigue, colon cancer, breast cancer or weakness HEENT HEENT: No difficulty swallowing, eye injury, eye surgery, swollen glands or hoarseness Endo Endocrine: Yes thyroid cancer; No thyroid disease, diabetes mellitus, Hair loss, heat intolerance or cold intolerance Skin Skin: No rash or changing moles Musc Musculoskeletal: No back problems, arthritis, rheumatoid arthritis, gout or joint pain Cardio Cardiovascular: No murmur, pacemaker, heart disease, atrial fibrillation, high blood pressure, heart attack, heart stent, palpitations, shortness of breath with exertion or chest pain Psych Psychiatric: No depression, anxiety or hearing voices Resp Respiratory: No shortness of breath, No sleep apnea, No cough, No COPD, No asthma, No emphysema and No wheezing Gastro Gastrointestinal: No abdominal pain, No nausea or vomiting, No diarrhea, No constipation, No blood in stool, Yes acid reflux, No hemorrhoids, No ulcers, No gallbladder problem and No black,tarry stools Claude Hematologic: No blood thinners, No blood disorders, No bleeding, No anemia and No blood clots Neuro Neurologic: No system reviewed and no additional complaints, except as documented, No as per HPI, No abnormal gait, No abnormal hearing, No abnormal movements, No abnormal speech, No behavioral changes, No burning sensations, No confusion, No convulsions, No disequilibrium, No dizziness, No localized weakness, No frequent falls, No headache(s), No lack of coordination, No loss of vision, No memory loss, No numbness, No other visual disturbances, No radicular pain, No restless legs, No sensory deficit, No syncope, No tingling, No tremor(s), No weakness and No other Exam Const General: cooperative and anxious (more content not included)... Normal [facility] Thyroidon 09-04-2024 Thyroid [facility] Imaging Services [address] [place] [place], [place] [address] Thyroid MR#: [id number] Acct: [id number] Name: SIMA KEEN Rep #: [id number] : 1985 F 39 From: Edgar Alvarez MD PCP: ANIBAL Workamn Status: REG CLI Study: Thyroid Date of Exam: 09/04/24 Exam# [id number] Ordering Dr: Alanis Batista PROCEDURE: THYROID REASON FOR EXAM: Thyroid cancer TECHNIQUE: Thyroid ultrasound COMPARISON: 04/21/2023 FINDINGS: Right thyroid bed: Several hypoechoic foci in the inferior pole of the right thyroid bed. Lesion 1: Solid hypoechoic nodule with smooth margins and peripheral vascularity measuring 1.0 x 0.5 x 0.4 cm. TI-RADS 4 Lesion 2: Solid hypoechoic nodule with smooth margins and peripheral vascularity measuring 2.2 x 1.4 x 1.4 cm. TI-RADS 4 Lesion 3: Solid hypoechoic nodule with smooth margins and peripheral vascularity measuring 1.4 x 1.1 x 1.0 cm. TI-RADS 4 Lesion 4: Solid hypoechoic nodule with smooth margins and peripheral vascularity measuring 0.9 x 0.7 x 0.6 cm. TI-RADS 4 Lesion 5: Solid hypoechoic nodule with smooth margins and peripheral vascularity measuring 0.7 x 0.8 x 0.5 cm. TI-RADS 4 Left thyroid lobe measures 6.4 x 2.5 x 2.3 cm Isthmus thickness is0.2 cm. Thyroid Size: Normal Background Echotexture: Normal Thyroid Nodules: Left thyroid nodule: Mixed hypoechoic nodule with irregular margins measuring 0.7 x 0.5 x 0.3 cm. TI-RADS 3 US/Thyroid IMPRESSION: 1. TI-RADS 4 nodules in the right thyroid bed status post right thyroidectomy. Recommend FNA 2. TI-RADS 3 left thyroid nodule. No recommendation at this time given size Reading Location: [facility] CC: ANIBAL [employer] Manager: Signed [facility] CBC (INCLUDES DIFF/PLT)on Basophils (Bld) [#/Vol] 0.057 10*3/uL Normal 0-200 [facility] Comment on above: Performed By: #### 6 399, 899, [id number] #### [facility] of [place] [address] [employer]: Mayur Barahona MD Basophils/100 WBC (Bld) 0.7 % Normal [facility] Comment on above: Performed By: #### 6 399, 899, 64980 #### [facility] of [place] [address] [employer]: Mayur Barahona MD Eosinophils (Bld) [#/Vol] 0.356 10*3/uL Normal 15-500 [facility] Comment on above: Performed By: #### 6 399, 899, 95266 #### [facility] of [place] [address] [employer]: Mayur Barahona MD Eosinophils/100 WBC (Bld) 4.4 % Normal [facility] Comment on above: Performed By: #### 6 399, 899, 22140 #### [facility] of [place] [address] [employer]: Mayur Barahona MD Erythrocyte distribution width (RBC) [Ratio] 11.5 % Normal 11.0-15.0 [facility] Comment on above: Performed By: #### 6 399, 899, 58004 #### [facility] of [place] [address] [employer]: Mayur Barahona MD Hematocrit (Bld) [Volume fraction] 43.1 % Normal 35.0-45.0 [facility] Comment on above: Performed By: #### 6 399, 899, 27501 #### [facility] of [place] [address] [employer]: Mayur Barahona MD Hemoglobin (Bld) [Mass/Vol] 14.5 g/dL Normal 11.7-15.5 [facility] Comment on above: Performed By: #### 6 399, 899, 80934 #### [facility] [place] [address] [employer]: Mayur Barahona MD Lymphocytes (Bld) [#/Vol] 2.649 10*3/uL Normal 850-3900 [facility] Comment on above: Performed By: #### 6 399, 899, 87040 #### [facility] of [address], [address] [place] [address] [employer]: Mayur Barahnoa MD Lymphocytes/100 WBC (Bld) 32.7 % Normal [facility] Comment on above: Performed By: #### 6 399, 899, 37642 #### [facility] [place] [address] [employer]: Mayur Barahona MD MCH (RBC) [Entitic mass] 29.7 pg Normal 27.0-33.0 [facility] Comment on above: Performed By: #### 6 399, 899, 05690 #### [facility] [place] [address] [employer]: Mayur Barahona MD MCHC (RBC) [Mass/Vol] 33.6 g/dL Normal 32.0-36.[address] [facility] Comment on above: Result Comment: For adults, a slight decrease in the calculated MCHC value (in the range of 30 to 32 g/dL) is most likely not clinically significant; however, it should be interpreted with caution in correlation with other red cell parameters and the patient's clinical condition. Performed By: #### 6 399, 899, 20587 #### [facility] [place] [address] [employer]: Mayur Barahona MD MCV (RBC) [Entitic vol] 88.3 fL Normal 80.0-100.0 [facility] Comment on above: Performed By: #### 6 399, 899, 99024 #### [facility] of [place] [address] [place] [address] [employer]: Mayur Barahona MD Monocytes (Bld) [#/Vol] 0.535 10*3/uL Normal 200-950 [facility] Comment on above: Performed By: #### 6 399, 899, 29946 #### [facility] of [address], [address] [place] [address] [employer]: Mayur Barahona MD Monocytes/100 WBC (Bld) 6.6 % Normal [facility] Comment on above: Performed By: #### 6 399, 899, 88970 #### [facility] of [place] [address] [employer]: Mayur Barahona MD Neutrophils (Bld) [#/Vol] 4.504 10*3/uL Normal 0175-5321 [facility] Comment on above: Performed By: #### 6 399, 899, 23913 #### [facility] of [place] [address] [employer]: Mayur Barahona MD Neutrophils/100 WBC (Bld) 55.6 % Normal [facility] Comment on above: Performed By: #### 6 399, 899, 60201 #### [facility] of [place] [address] [employer]: Mayur Barahona MD Platelet mean volume (Bld) [Entitic vol] 10.1 fL Normal 7.5-12.5 [facility] Comment on above: Performed By: #### 6 399, 899, 41740 #### [facility] of [place] [address] [employer]: Mayur Barahona MD Platelets (Bld) [#/Vol] 299 10*3/uL Normal 140-400 [facility] Comment on above: Performed By: #### 6 399, 899, 52520 #### [facility] of [place] [address] [employer]: Mayur Barahona MD RBC (Bld) [#/Vol] 4.88 10*6/uL Normal 3.80-5.10 [facility] Comment on above: Performed By: #### 6 399, 899, 27360 #### [facility] [place] [address] [employer]: Mayur Barahona MD WBC (Bld) [#/Vol] 8.1 10*3/uL Normal 3.8-10.8 [facility] Comment on above: Performed By: #### 6 399, 899, 67535 #### [facility] [place] [address] [employer]: Mayur Barahona MD T3, 08-31-2024 Free T3 [Mass/Vol] 3.4 pg/mL Normal 2.3-4.2 [facility] Comment on above: Performed By: #### 6 399, 899, 38860 #### [facility] [place] [address] [employer]: Mayur Barahona MD T4, 08-31-2024 Free T4 [Mass/Vol] 1.2 ng/dL Normal 0.8-1.8 [facility] Comment on above: Performed By: #### 6 399, 899, 51846 #### [facility] [place] [address] [employer]: Mayur Barahona MD TSHon 08-31-2024 TSH Qn 2.25 m[IU]/L Normal [facility] Comment on above: Result Comment: Refe rence Range > or = 20 Years 0.40-4.50 Ranges First trimester 0.26-2.66 Second trimester 0.55-2.73 Third trimester 0.43-2.91 Performed By: #### 6 399, 899, 43095 #### [facility] [place] [address] [employer]: Mayur Barahona MD Laboratory - Chemistry and C hemistry - challengeon 08-30-2024 Free T3 [Mass/Vol] 3.4 pg/mL Normal 2.3 - 4.2 pg/mL [facility].; [facility] Free T4 [Mass/Vol] 1.2 ng/dL Normal 0.8 - 1.8 ng/dL [facility]; [facility], [facility] TSH Qn 2.25 m[IU]/L Normal [facility]; [facility] Laboratory - Hematology and Cell countson 08-30-2024 Basophils (Bld) [#/Vol] 0.057 10*3/uL Normal 0 - 200 {cells/uL} [facility].; [facility] Basophils/100 WBC (Bld) 0.7 % Normal [facility]; [facility], [facility] Eosinophils (Bld) [#/Vol] 0.356 10*3/uL Normal 15 - 500 {cells/uL} [facility].; [facility] Eosinophils/100 WBC (Bld) 4.4 % Normal [facility]; [facility] Erythrocyte distribution width (RBC) [Ratio] 11.5 % Normal 11.0 - 15.0 % [facility]; [facility], [facility] Hematocrit (Bld) [Volume fraction] 43.1 % Normal 35.0 - 45.0 % [facility]; [facility], [facility] Hemoglobin (Bld) [Mass/Vol] 14.5 g/dL Normal 11.7 - 15.5 g/dL [facility].; [facility] Lymphocytes (Bld) [#/Vol] 2.649 10*3/uL Normal 850 - 3900 {cells/uL} [facility].; [facility] Lymphocytes/100 WBC (Bld) 32.7 % Normal [facility]; [facility], [facility] MCH (RBC) [Entitic mass] 29.7 pg Normal 27.0 - 33.0 pg [facility].; [facility], [facility]. MCHC (RBC) [Mass/Vol] 33.6 g/dL Normal 32.0 - 36.0 g/dL [facility].; [employer], [employer]. MCV (RBC) [Entitic vol] 88.3 fL Normal 80.0 - 100.0 fL [facility].; [employer], [employer]. Monocytes (Bld) [#/Vol] 0.535 10*3/uL Normal 200 - 950 {cells/uL} [employer], [employer]. Monocytes/100 WBC (Bld) 6.6 % Normal [facility].; [employer]. Neutrophils (Bld) [#/Vol] 4.504 10*3/uL Normal 1500 - 7800 {cells/uL} [employer].; [employer], [employer]. Neutrophils/100 WBC (Bld) 55.6 % Normal [facility].; [employer], [employer]. Platelet mean volume (Bld) [Entitic vol] 10.1 fL Normal 7.5 - 12.5 fL [facility].; [employer], [employer]. Platelets (Bld) [#/Vol] 299 10*3/uL Normal 140 - 400 [facility].; [employer], [employer]. RBC (Bld) [#/Vol] 4.88 10*6/uL Normal 3.80 - 5.10 {Million/u L} [employer].; [employer], [employer]. WBC (Bld) [#/Vol] 8.1 10*3/uL Normal 3.8 - 10.8 [employer].; [employer]. Laboratory - Chemistry and C hemistry - challengeOrdered By: Elliott Reynaga on 05-13-2023 HCG ( test) Ql (U) Negative [facility] Comment on above: Very dilute urine sp ecimens, as indicated by a low specificgravity, may not contain direct customer service representative levels of hCG. If is still suspected, a first morning urinespecimen should be collected 48 hours later and tested. Laboratory - Chemistry and C hemistry - challengeOrdered By: David Cano on 04-21-2023 T4 [Mass/Vol] 7.8 ug/dL 4.8-13.9 [facility] No Panel InformationOrdered By: David Cano on 04-21-2023 Free Triiodothyronine (T3) pg/dL 2.7 pg/mL 2.18-3.98 [facility] Thyroid Stimulating Hormone (TSH) 2.33 uIU/mL 0.358-3.74 [facility] Laboratory - Chemistry and C hemistry - challengeon 04-28-2022 Bilirubin Ql (U) Negative Normal OTOY.; OTOY. Ketones Ql (U) Negative Normal [employer].; [employer], [employer]. pH (U) 6.5 [pH] Normal OTOY.; OTOY. Specific gravity (U) [Rel density] 1.005 Abnormal OTOY.; OTOY. Urobilinogen Qn (U) 0.2 mg/dL Normal [place].; [facility]TOY. Laboratory - Hematology and Cell countson 04-28-2022 Hemoglobin Ql (U) large Abnormal OTOY.; OTOY. Laboratory - Specimen inform ationon 04-28-2022 Appearance (U) Cloudy Abnormal [facility].; OTOY. Color (U) Dark Yellow Normal [facility].; OTOY. Laboratory - Urinalysison Glucose Test strip (U) [Mass/Vol] Negative Normal [facility]TOY.; OTOY. Leukocyte esterase Test strip Ql (U) small Abnormal [facility].; OTOY. Nitrite Ql (U) Positive Abnormal [facility]TOY.; OTOY. Protein Ql (U) trace Normal [facility].; OTOY. No Panel Informationon 04-28 CULTURE, URINE, ROUTINE SEE NOTE Normal [facility].; [employer], [employer]. US SOFT TISSUE NECK/HEADon 1 07-21-2020 SOFT TISSUE NECK/HEAD [place] [address] Patient: SIMA KEEN Phone#: : 1985 Age: 36 Gender: F Pt. Type: Account: [id number] Location: 052 Ordering: [facility] Exam Date: 05/20/2021/8:18 Family Phys: Charge Code: [id number] Physician: Crisp Order #: [id number] DLP Dose#: PROCEDURE: SOFT TISSUE NECK/HEAD COMPARISON: None. INDICATIONS: SUBCUTANEOUS NODULE TECHNIQUE: Sonography was performed of the clinically requested area of interest. FINDINGS: REGION IMAGED: Right posterior neck, focusing in the area palpable concern MASSES: None. No evident mass. FLUID COLLECTIONS: None. No abnormal fluid collection. OTHER: Negative. CONCLUSION: 1. NO ABNORMAL MASS OR FLUID COLLECTION IN THE AREA PALPABLE CONCERN Dictated by: Yuki Knight MD on 05/20/2021 at 10:48 Approved by: Yuki Knight MD on 05/20/2021 at 11:[address] [facility] THYROIDon 05-20-2021 [place] [address] Patient: SIMA KEEN Phone#: : 1985 Age: 36 Gender: F Pt. Type: Out Account: [id number] Location: 052 Ordering: [facility] Exam Date: 05/20/2021/8:06 Family Phys: Charge Code: [id number] Physician: Crisp Order #: [id number] DLP Dose#: PROCEDURE: THYROID ULTRASOUND COMPARISON: None. INDICATIONS: THYROID NODULE TECHNIQUE: High-resolution ultrasound was performed of the thyroid gland. FINDINGS: RIGHT LOBE: Right lobe measures 5.7 x 2.5 x 2.4 cm. There is heterogeneity throughout the parenchyma. There is a heterogeneous hypoechoic nodule in the midpole measuring 16 x 16 x 16 mm. The nodule has lobulated margins and contains calcifications. This is consistent with a TR 5 nodule. LEFT LOBE: Normal. No visible mass, cyst, calcification, enlargement, or abnormal echotexture. Left lobe measures 5.1 x 1.8 x 2.3 cm. ISTHMUS: Normal. No visible mass, cyst, calcification, enlargement, or abnormal echotexture. Isthmus measures 0.3 cm. OTHER: None. CONCLUSION: 1. Highly suspicious right thyroid nodule, TR 5 classification. Recommend fine needle aspiration. Dictated by: Yuki Knight MD on 05/20/2021 at 10:43 Approved by: Yuki Knight MD on 05/20/2021 at 10:48 Normal [facility] Laboratory - Chemistry and C hemistry - challengeon 05-12-2021 Free T4 [Mass/Vol] 1.1 ng/dL Normal 0.8 - 1.8 ng/dL [employer] [facility].; OTOY. TSH Qn 1.76 m[IU]/L Normal [employer].; [employer]St[employer], [employer]metricks. Laboratory - Hematology and Cell countson 05-12-2021 Basophils (Bld) [#/Vol] 0.031 10*3/uL Normal 0 - 200 {cells/uL} [employer].; OTOY. Basophils/100 WBC (Bld) 0.5 % Normal [employer].; OTOY. Eosinophils (Bld) [#/Vol] 0.05 10*3/uL Normal 15 - 500 {cells/uL} [employer].; [employer], [employer]. Eosinophils/100 WBC (Bld) 0.8 % Normal [employer].; [employer], [employer]. Erythrocyte distribution width (RBC) [Ratio] 11.6 % Normal 11.0 - 15.0 % [employer].; [employer], [employer]. Hematocrit (Bld) [Volume fraction] 37.6 % Normal 35.0 - 45.0 % [employer], [employer].; [employer], [employer]. Hemoglobin (Bld) [Mass/Vol] 12.7 g/dL Normal 11.7 - 15.5 g/dL [employer].; [employer], [employer]. Lymphocytes (Bld) [#/Vol] 2.833 10*3/uL Normal 850 - 3900 {cells/uL} [employer].; OTOY. Lymphocytes/100 WBC (Bld) 45.7 % Normal [facility] Hospital[facility].; [facility], [facility]. MCH (RBC) [Entitic mass] 29.3 pg Normal 27.0 - 33.0 pg [facility] Hospital[facility].; [facility], [facility]. MCHC (RBC) [Mass/Vol] 33.8 g/dL Normal 32.0 - 36.0 g/dL [facility] Hospital[facility].; [facility], [facility]. MCV (RBC) [Entitic vol] 86.8 fL Normal 80.0 - 100.0 fL [facility] Hospital[facility].; [facility], [facility]. Monocytes (Bld) [#/Vol] 0.422 10*3/uL Normal 200 - 950 {cells/uL} [facility].; [facility], [facility]. Monocytes/100 WBC (Bld) 6.8 % Normal [facility] Hospital[facility].; [facility] [employer] [facility], [facility]. Neutrophils (Bld) [#/Vol] 2.864 10*3/uL Normal 1500 - 7800 {cells/uL} [facility] Hospital[facility].; [facility], [facility]. Neutrophils/100 WBC (Bld) 46.2 % Normal [facility] Hospital[facility].; [facility], [facility]. Platelet mean volume (Bld) [Entitic vol] 10.2 fL Normal 7.5 - 12.5 fL [facility] Hospital[facility].; [facility], [facility]. Platelets (Bld) [#/Vol] 302 10*3/uL Normal 140 - 400 [facility] [employer] [facility].; [facility], [facility]. RBC (Bld) [#/Vol] 4.33 10*6/uL Normal 3.80 - 5.10 {Million/u L} [facility] [employer] [facility].; [facility], [facility]. WBC (Bld) [#/Vol] 6.2 10*3/uL Normal 3.8 - 10.8 [facility] [employer] [facility].; [facility], [employer]. No Panel Informationon 05-12 [id number] SEE NOTE Normal [facility].; [employer] CLINICAL INFORMATION: SEE NOTE Normal [facility].; [employer] POULTRY BUYER: SEE NOTE Normal [employer].; [employer] HPV mRNA E6/E7 Not detected Normal [facility].; [employer] INTERPRETATION/RESULT : SEE NOTE Normal [employer] LMP: SEE NOTE Normal [employer].; [employer] PREV. BX: SEE NOTE Normal [employer].; [employer] PREV. PAP: SEE NOTE Normal [employer].; [employer] REVIEW POULTRY BUYER: SEE NOTE Normal [employer].; [employer] SOURCE: SEE NOTE Normal [employer].; [employer], [employer]. STATEMENT OF ADEQUACY: SEE NOTE Normal [employer].; [employer] CORONAVIRUS PCR - [facility] 12-06-2020 SARS-CoV-2 (COVID-19) RNA COLETTE+probe Ql (Unsp spec) Negative Normal NORMAL: NEGATIVE [facility] Comment on above: Performed By: #### 2 [id number] #### [facility],[address] [place] [address] SEND TO IC? YES Normal [facility] Comment on above: Result Comment: RESU LTS FAXED TO INFECTION CONTROL. SARS-CoV-2 THIS TEST IS BEING USED UNDER THE FDA EUA PROCEDURE. THIS ASSAY HAS BEEN VALIDATED IN THE [facility] FOR USE WITH NASOPHARYNGEAL SPECIMENS IN [facility]. INTERPRETIVE DATA LABORATORY TEST RESULTS SHOULD ALWAYS BE CONSIDERED IN THE CONTEXT OF CLINICAL OBSERVATIONS AND EPIDEMIOLOGICAL DATA IN MAKING FINAL DIAGNOSIS AND PATIENT MANAGEMENT DECISIONS. PATIENT MANAGEMENT SHOULD FOLLOW CURRENT CDC GUIDELINES. A POSITIVE TEST RESULT FOR COVID-19 INDICATES THAT RNA FROM SARS-CoV-2 WAS DETECTED, AND THE PATIENT IS INFECTED WITH THE VIRUS AND PRESUMED TO BE CONTAGIOUS. A NEGATIVE TEST RESULT FOR THIS TEST MEANS THAT SARS-CoV-2 RNA WAS NOT PRESENT IN THE SPECIMEN ABOVE THE LIMIT OF DETECTION. HOWEVER, A NEGATVIE RESULT DOES NOT RULE OUT COVID-19 AND SHOULD NOT BE USED THE SOLE BASIS FOR TREATMENT OR PATIENT MANAGEMENT DECISIONS. A NEGATIVE RESULT DOES NOT EXCLUDE THE POSSIBILITY OF COVID-19. WHEN DIAGNOSTIC TESTING IS NEGATIVE, THE POSSIBLILTY OF A FALSE NEGATIVE RESULT SHOULD BE CONSIDERED IN THE CONTEXT OF A PATIENT'S RECENT EXPOSURES AND THE PRESENCE OF CLINICAL SIGNS AND SYMPTOMS CONSISTENT WITH COVID-19. THE POSSIBILITY OF A FALSE NEGATIVE RESULT SHOULD ESPECIALLY BE CONSIDERED IF THE PATIENT'S RECENT EXPOSURES OR CLINICAL PRESENTATION INDICATE THAT COVID-19 IS LIKELY, AND DIAGNOSTIC TESTS FOR OTHER CAUSES OF ILLNESS (e.g., OTHER RESPIRATORY ILLNESS) ARE NEGATIVE. IF COVID-19 IS STILL SUSPECTED BASED ON EXPOSURE HISTORY TOGETHER WITH OTHER CLINICAL FINDINGS, RE-TESTED SHOULD BE CONSIDERED BY HEALTHCARE PROVIDERS IN CONSULTATION WITH PUBLIC HEALTH AUTHORITIES. Performed By: #### 2 [id number] #### [facility],[address] [place] [address] EMERGENCY REPORTon 1 EMERGENCY REPORT [facility] EMERGENCY ROOM REPORT NAME ACCOUNT SEX AGE ADMIT DISCHARGE PT MED. RECORD# NUMBER DATE DATE TYPE LEONILA [id number] F 35 11/01/20 11/01/20 3 [facility] [id number] ROOM: ER DATE OF : 1985 DICTATING PHYSICIAN: Minh Chester HISTORY OF PRESENT ILLNESS: The patient came in complaining of low back pain and weakness. The patient says she got up to take care of her child. The crib was right next to the bed. She really did not even get up. She just had pain in her back and weakness. She took care of the child and went back to bed. She did not even stand because she was that close to the crib. This morning, she had pain in her back. She states it is a 9/10. At rest, it is a 3/10. She denies any bowel or bladder dysfunction. No numbness or tingling. It is a sharp, throbbing pain. It is better with rest and worse with walking and movement. She presents to the Emergency Department. PAST SURGICAL HISTORY: She has had a . SOCIAL HISTORY: She occasionally drinks alcohol. She does not smoke. REVIEW OF SYSTEMS: Ten systems were reviewed and were negative except as mentioned above. PHYSICAL EXAMINATION: The patient is afebrile. Blood pressure is 137/83, pulse 81, respirations 18, and pulse oximetry 97% on room air. Head is normocephalic, atraumatic. Eyes: Pupils are equal, round and reactive to light. Extraocular muscles are intact. Nares are patent. Throat has adequate oral moisture. Uvula is midline. Neck is supple without petechiae or rash. Heart rate is regular without murmur. S1 is equal to S2. No S3 or S4 appreciated. Lungs are clear to auscultation bilaterally. No rales, rhonchi or retractions. Abdomen is soft, nontender and nondistended. Skin is warm and dry. She has generalized tenderness to the back with twisting. No midline back pain. No paraspinal back pain. Her deep tendon reflexes were intact in the upper and lower extremities. DIAGNOSTIC DATA: The patient did have an MRI which was unremarkable. White count was 8000, hemoglobin 13, hematocrit 39, and platelet count 300,000. Sed rate was normal. Chemistries were unremarkable. EMERGENCY DEPARTMENT COURSE AND TREATMENT: She did have the Coronavirus vaccine on October 21, 2020, so it might have something to do with that. I did write her for Percocet. I did write her for Flexeril and prednisone. She got Decadron today. She is to return for increasing pain, weakness, or any concerns. While she was here, she actually said it felt better going to the bathroom and felt stronger walking. She Page 1 of 2 KEENSIM[facility] Y[facility] Emergency Room Report SIMA KEEN : 1985 was able to walk putting weight on her toes and heels. I do not think this is Guillain-BarrE or transverse myelitis. Her MRI of the low back was unremarkable. DIAGNOSIS: Low back pain and weakness - cause not clear. PLAN/DISPOSITION: She will be discharged in stable condition. She was told to return if any problems or concerns. Dictated By: Minh Chester DO 11/01/20 19:08 JOB #: [id number] Transcribed By: marques 11/02/20 10:35 Electronically signed by: IMAN Chester D.O. 11/04/20 21:14 Page 2 of 2 KEEN SIMA Emergency Room Report Normal [facility] CBC + DIFFon 11-01-2020 Baso # 0.00 x10EE3/UL Normal 0.00 - 0.10 [facility] Comment on above: Performed By: #### 2 [id number] #### [facility],[address] [place], [place] [id number] Basophils/100 WBC (Bld) 0.6 % Normal 0.0 - 2.0 [facility] Comment on above: Performed By: #### 2 70235 #### [facility],[address] [place] [address] CBC + DIFF Normal [facility] Comment on above: Result Comment: CBC- COMPLETE BLOOD COUNT Performed By: #### 2 71905 #### [facility],[address] [place] [address] EO # 0.00 x10EE3/UL Normal 0.00 - 0.50 [facility] Comment on above: Performed By: #### 2 46130 #### [facility],[address] [place] [address] Eosinophils/100 WBC (Bld) 0.5 % Normal 0.0 - 7.0 [facility] Comment on above: Performed By: #### 2 56660 #### [facility],[address] [place] [address] Erythrocyte distribution width (RBC) [Ratio] 12.2 % Normal 12.0 - 15.6 [facility] Comment on above: Performed By: #### 2 81929 #### [facility],[address] [place] [address] Hematocrit (Bld) [Volume fraction] 39.6 % Normal 34.0 - 46.0 [facility] Comment on above: Performed By: #### 2 35295 #### [facility],[address] [place], [place] [id number] Hemoglobin (Bld) [Mass/Vol] 13.7 g/dL Normal 12.0 - 16.0 [facility] Comment on above: Performed By: #### 2 63891 #### [facility],[address] [place], [place] [address] Lymph # 2.40 x10EE3/UL Normal 0.80 - 2.80 [facility] Comment on above: Performed By: #### 2 77485 #### [facility],[address] [place] [address] Lymphocytes/100 WBC (Bld) 29.4 % Normal 20.0 - 45.0 [facility] Comment on above: Performed By: #### 2 15831 #### [facility],[address] [place] [address] MANUAL DIFF N/A Normal [facility] Comment on above: Performed By: #### 2 11704 #### [facility],[address] [place] [address] MCH (RBC) [Entitic mass] 30 pg Normal 27 - 33 [facility] Comment on above: Performed By: #### 2 70635 #### [facility],[address] [place] [address] MCHC 35 X10 3 Normal 32 - 36 [facility] Comment on above: Performed By: #### 2 91679 #### [facility],[address] [place] [address] 34595 MCV (RBC) [Entitic vol] 86 fL Normal 80 - 99 [facility] Comment on above: Performed By: #### 2 24163 #### [facility],[address] [place] [address] [place] # 0.60 x10EE3/UL Normal 0.20 - 1.00 [facility] Comment on above: Performed By: #### 2 98562 #### [facility],[address] [place] [address]3072 MONOS % 6.7 % Normal 0.0 - 10.0 [facility] Comment on above: Performed By: #### 2 79480 #### [facility],[address] [place] [address] 30687 Morphology Torito (Bld) [Interp] N/A Normal [facility] Comment on above: Result Comment: {CD] Performed By: #### 2 45223 #### [facility],[address] [place] [address]874 Neut # 5.20 x10EE3/UL Normal 1.50 - 7.10 [facility] Comment on above: Performed By: #### 2 13988 #### [facility],[address] [place] [address] 31585 Neutrophils/100 WBC (Bld) 62.8 % Normal 46.0 - 76.0 [facility] Comment on above: Performed By: #### 2 67540 #### [facility],[address] [place] [address] 22901 PLATELET 300 x10EE3/UL Normal 150 - 450 [facility] Comment on above: Performed By: #### 2 78181 #### [facility],[address] [place] [address] 74878 Platelet mean volume (Bld) [Entitic vol] 7.8 fL Normal 6.6 - 10.5 [facility] Comment on above: Result Comment: AUTO MATED DIFFERENTIAL Performed By: #### 2 36529 #### [facility],[address] [place] [address] 51733 RBC 4.61 x 10EE6/UL Normal 4.10 - 5.30 [facility] Comment on above: Performed By: #### 2 92616 #### [facility],[address] [place] [address] 58638 WBC 8.3 x 10EE3/UL Normal 4.5 - 10.8 [facility] Comment on above: Performed By: #### 2 49419 #### [facility],[address] [place] [address] 18785 CMP with eGFRon 11-01-2020 AGE 35 years Normal [facility] Comment on above: Performed By: #### 2 86672 #### [facility],[address] [place] [address] 13408 Albumin [Mass/Vol] 3.7 g/dL Normal 3.4 - 5.0 [facility] Comment on above: Performed By: #### 2 28868 #### [facility],[address] [place] [address] 14137 Albumin/Globulin [Mass ratio] 0.9 {ratio} Normal 0.9 - 1.6 [facility] Comment on above: Performed By: #### 2 28517 #### [facility],[address] [place] [address] 93640 ALK PHOS 69 U/L Normal 46 - 116 [facility] Comment on above: Performed By: #### 2 64844 #### [facility],[address] [place] [address] 45188 ALT/SGPT <6 Low 14 - 59 [facility] Comment on above: Performed By: #### 2 18072 #### [facility],[address] [place] [address] 03374 Anion gap [Moles/Vol] 15 mmol/L Normal 10 - 20 [facility] Comment on above: Performed By: #### 2 98890 #### [facility],[address] [place] [address] 51589 AST [Catalytic activity/Vol] 10 U/L Low 13 - 39 [facility] Comment on above: Performed By: #### 2 13440 #### [facility],[address] [place] [address] 93620 B/C RATIO 12 ratio Normal 0 - 30 [facility] Comment on above: Performed By: #### 2 71195 #### [facility],[address] [place] [address] 84151 Bilirubin [Mass/Vol] 0.6 mg/dL Normal 0.2 - 1.0 [facility] Comment on above: Performed By: #### 2 29926 #### [facility],[address] [place] [address] 22946 Calcium [Mass/Vol] 8.8 mg/dL Normal 8.5 - 10.1 [facility] Comment on above: Performed By: #### 2 70026 #### [facility],[address] [place] [address] 73316 Chloride [Moles/Vol] 106 mmol/L Normal 98 - 107 [facility] Comment on above: Performed By: #### 2 75355 #### [facility],[address] [place] [address] 85915 CMP with eGFR Normal [facility] Comment on above: Result Comment: COMP REHENSIVE METABOLIC PANEL Performed By: #### 2 00712 #### [facility],[address] [place] [address] CO2 [Moles/Vol] 23.0 mmol/L Normal 21.0 - 32.0 [facility] Comment on above: Performed By: #### 2 43483 #### [facility],[address] [place], [place] [address] Creatinine [Mass/Vol] 0.6 mg/dL Normal 0.5 - 1.0 [facility] Comment on above: Performed By: #### 2 29495 #### [facility],[address] [place], [place] [address] GFR/1.73 sq M.predicted among non-blacks MDRD (S/P/Bld) [Vol rate/Area] mL/min/{1.73_m2} Normal 60 - 999 [facility] Comment on above: Performed By: #### 2 78649 #### [facility],[address] [place] [address] Result Comment: ACCO RDING TO THE NATIONAL KIDNEY DISEASE EDUCATION PROGRAM(NKDE), A NORMAL eGFR IS A VALUE GREATER THAN OR EQUAL TO 60 ML/MIN/1.73 SQ METERS. CHRONIC KIDNEY DISEASE: <60mL/MIN/1.73 SQ METERS KIDNEY FAILURE: <15mL/MIN/1.73 SQ METERS THIS TEST SHOULD ONLY BE USED FOR PATIENTS 18 YEARS OF AGE AND OLDER. Globulin (S) [Mass/Vol] 4.0 g/dL High 1.5 - 3.8 [facility] Comment on above: Performed By: #### 2 47243 #### [address] [address] Glucose [Mass/Vol] 80 mg/dL Normal 74 - 106 [facility] Comment on above: Performed By: #### 2 39301 #### [facility],[address] [place] [address]333 Potassium [Moles/Vol] 3.5 mmol/L Normal 3.5 - 5.1 [facility] Comment on above: Performed By: #### 2 97726 #### [address] [address] Protein [Mass/Vol] 7.7 g/dL Normal 6.4 - 8.2 [facility] Comment on above: Performed By: #### 2 66897 #### [facility],[address] [place] [address] 08192 Sodium [Moles/Vol] 140 mmol/L Normal 136 - 145 [facility] Comment on above: Performed By: #### 2 47781 #### [facility],[address] [place] [address] 96877 Urea nitrogen [Mass/Vol] 7 mg/dL Normal 7 - 18 [facility] Comment on above: Performed By: #### 2 86056 #### [facility],[address] [place] [address] 43932 CPKon 11-01-2020 CPK 53 U/L Normal 26 - 192 [facility] Comment on above: Performed By: #### 2 19071 #### [address] [address] MR LUMBAR SP W/WO CONTRASTon 11-01-2020 MR LUMBAR SP W/WO CONTRAST [place] [id number] Patient: SIMA KEEN Phone#: : 1985 Age: 35 Gender: F Pt. Type: ER Account: [id number] Location: 052 Ordering: MINH GARCIAER Exam Date: 11/01/2020/16:17 Family Phys: LATA ZAPATA Charge Code: [id number] Physician: Crisp Order #: [id number] DLP Dose#: PROCEDURE: MRI LUMBAR SPINE WITH AND WITHOUT CONTRAST COMPARISON: None. INDICATIONS: Back pain. TECHNIQUE: A comprehensive examination was performed utilizing a variety of imaging planes and imaging parameters to optimize visualization of suspected pathology. Images were performed before and after the administration of intravenous gadolinium contrast. FINDINGS: PARASPINAL AREA: Normal with no visible mass. BONES: Vertebral bodies are maintained in height and alignment. There is normal marrow signal. No abnormal bony enhancement. CORD/CAUDA EQUINA: Normal caliber, contour, and signal intensity. No abnormal enhancement or clumping of the cauda equina. Conus terminates at L1. OTHER: There is a small cyst in the right kidney measuring 0.9 cm. LUMBAR DISC LEVELS L1-L2: No significant disc/facet abnormality, spinal stenosis, or foraminal stenosis. L2-L3: No significant disc/facet abnormality, spinal stenosis, or foraminal stenosis. L3-L4: Mild circumferential disc bulge without significant foraminal narrowing. L4-L5: Mild circumferential disc bulge contributing to mild bilateral foraminal narrowing. There is indentation of the anterior thecal sac without significant spinal canal narrowing. There is a midline posterior annular tear. L5-S1: Disc height loss and midline posterior annular tear. No significant spinal canal or neural foraminal narrowing. CONCLUSION: 1. No abnormal enhancement or abnormal appearance of the cauda equina. 2. L4-5 and L5-S1 posterior annular tears. Dictated by: Yuki Knight MD on 11/01/2020 at 17:27 Continued Report - Page 2 of 2 Patient: SIMA KEEN Phone#: : 1985 Age: 35 Gender: F Pt. Type: ER Account: [id number] Location: 052 Ordering: MINH RONQUILLOISINGER Exam Date: 11/01/2020/16:17 Family Phys: ALTA BOSWELLARELYELLO Charge Code: [id number] Physician: Crisp Order #: [id number] DLP Dose#: Approved by: Yuki Knight MD on 11/01/2020 at 17:43 Normal [facility] SEDRATEon 11-01-2020 SEDRATE 6 mm/hr Normal 0 - 30 [facility] Comment on above: Performed By: #### 2 56994 #### [facility],[address] [place] [address] CORONAVIRUS PCR [CCL]on REF LAB REPORT Negative Normal [facility] Comment on above: Performed By: #### 2 06813 #### [facility],[address] [place] [address] SEND TO ? NO Normal [facility] Comment on above: Performed By: #### 2 22967 #### [facility],[address] [place] [address] SARS-CoV-2 (COVID-19) RNA COLETTE+probe Ql (Unsp spec) Nasopharyngeal Swab Normal [facility] Comment on above: Performed By: #### 2 51924 #### [facility],[address] [place] [address] SARS-CoV-2 (COVID-19) RNA COLETTE+probe Ql (Unsp spec) Negative Normal [facility] Comment on above: Result Comment: Nega tive for COVID19 (SARS CoV2) by PCR. This test was developed and its performance characteristics determined by [facility]'s [facility] Pathology and Laboratory Medicine [place]. This test has been authorized by FDA under an Emergency Use Authorization (EUA). This test has been validated in accordance with the FDA's Guidance Document Policy for Diagnostics Testing in Laboratories Certified to Perform High Complexity Testing under CLIA prior to Emergency use Authorization for Coronavirus Disease 2019 during the Public Health Emergency issued on September 16, 2019. [place] [address] [place] [address] Nilton Le III, M.D. [id number] Performed By: #### 2 40530 #### [facility],[address] [place] [address] Coronavirus 1 COVID 19 Result TELETYPE TELEGRAPHER Normal Negative for COVID19 (SARS CoV2) by PCR. [facility] Comment on above: Result Comment: Nega tive for This test was developed and its performance characteristics determined by [facility]'s [facility] Pathology and Laboratory Medicine [place]. This test has been authorized by FDA under an Emergency Use Authorization (EUA). This test has been validated in accordance with the FDA's Guidance Document Policy for Diagnostics Testing in Laboratories Certified to Perform High Complexity Testing under CLIA prior to Emergency use Authorization for Coronavirus Disease 2019 during the Public Health Emergency issued on September 16, 2019. COVID19 (SARS This test was developed and its performance characteristics determined by [facility]'s [facility] Pathology and Laboratory Medicine [place]. This test has been authorized by FDA under an Emergency Use Authorization (EUA). This test has been validated in accordance with the FDA's Guidance Document Policy for Diagnostics Testing in Laboratories Certified to Perform High Complexity Testing under CLIA prior to Emergency use Authorization for Coronavirus Disease 2019 during the Public Health Emergency issued on September 16, 2019. CoV2) by PCR. This test was developed and its performance characteristics determined by [facility]'s [facility] Pathology and Laboratory Medicine [place]. This test has been authorized by FDA under an Emergency Use Authorization (EUA). This test has been validated in accordance with the FDA's Guidance Document Policy for Diagnostics Testing in Laboratories Certified to Perform High Complexity Testing under CLIA prior to Emergency use Authorization for Coronavirus Disease 2019 during the Public Health Emergency issued on September 16, 2019. Coronavirus 1 COVID 19 Source TELETYPE TELEGRAPHER TELETYPE TELEGRAPHER Normal [facility] Laboratory - Chemistry and C hemistry - challengeon 08-19-2020 Bilirubin Ql (U) Negative Normal [employer] Ketones Ql (U) Negative Normal [employer] pH (U) 6.0 [pH] Normal [employer] Specific gravity (U) [Rel density] 1.015 Normal [facility]; [employer] Urobilinogen Qn (U) 0.2 mg/dL Normal [facility]; [facility] - Hematology and Cell countson 08-19-2020 Hemoglobin Ql (U) moderate Abnormal [facility]; [employer] [facility] Laboratory - Specimen inform ationon 08-19-2020 Appearance (U) clear Normal [facility]; [employer] Color (U) yellow Normal [facility]; [facility] [facility] Laboratory - Urinalysison Glucose Test strip (U) [Mass/Vol] Negative Normal [facility]; [employer] Leukocyte esterase Test strip Ql (U) small Abnormal [facility]; [employer] Nitrite Ql (U) Negative Normal [facility]; [employer] Protein Ql (U) Negative Normal [facility]; [employer] No Panel Informationon 08-19 CULTURE, URINE, ROUTINE SEE NOTE Abnormal [facility]; [facility] [facility] Laboratory - Chemistry and C hemistry - challengeon 04-25-2019 Albumin [Mass/Vol] 4.3 g/dL Normal 3.6 - 5.1 g/dL [facility]; [employer] Albumin/Globulin [Mass ratio] 1.8 {ratio} Normal 1.0 - 2.5 [facility]; [employer] ALP [Catalytic activity/Vol] 71 U/L Normal 33 - 115 U/L [facility]; [employer]. ALT [Catalytic activity/Vol] 13 U/L Normal 6 - 29 U/L [facility]; [employer]. AST [Catalytic activity/Vol] 11 U/L Normal 10 - 30 U/L [facility].; [employer] Bilirubin [Mass/Vol] 1.0 mg/dL Normal 0.2 - 1 .2 mg/dL [facility], [facility]. Calcium [Mass/Vol] 9.3 mg/dL Normal 8.6 - 10. 2 mg/dL [facility], [facility].; [facility], [facility]. Chloride [Moles/Vol] 108 mmol/L Normal 98 - 11 0 mmol/L [facility], [facility].; [facility], [facility]. Cholesterol [Mass/Vol] 200 mg/dL Abnormal [facility].; [facility], [facility]. Cholesterol in HDL [Mass/Vol] 76 mg/dL Normal [facility].; [facility], [facility]. Cholesterol in LDL [Mass/Vol] 110 mg/dL Abnormal 0 - 100 mg/dL [facility].; [facility], [facility]. Cholesterol non HDL [Mass/Vol] 124 mg/dL Normal [facility], [facility].; [facility], [facility]. Cholesterol.total/Cho lesterol in HDL [Mass ratio] 2.6 {ratio} Normal [facility] Hospital[facility].; [facility], [facility]. CO2 [Moles/Vol] 26 mmol/L Normal 20 - 32 mmol/L [facility].; [facility], [facility]. Creatinine [Mass/Vol] 0.60 mg/dL Normal 0.50 - 1.10 mg/dL [facility], [facility].; [facility], [facility]. GFR/1.73 sq M.predicted among blacks MDRD (S/P/Bld) [Vol rate/Area] 138 {ML/MIN/1.73M2} Normal [facility], [facility].; [facility], [facility]. GFR/1.73 sq M.predicted MDRD (S/P/Bld) [Vol rate/Area] 119 {ML/MIN/1.73M2} Normal [facility], [facility].; [facility], [facility]. Globulin (S) [Mass/Vol] 2.4 g/dL Normal 1.9 - 3.7 g/dL [facility], [facility].; [facility] [employer], [facility]. Glucose [Mass/Vol] 89 mg/dL Normal 65 - 99 mg/dL [facility], [facility].; [facility], [facility]. Potassium [Moles/Vol] 4.1 mmol/L Normal 3.5 - 5.3 mmol/L [facility] HospitalYu[facility].; [facility] [employer] [facility]. Protein [Mass/Vol] 6.7 g/dL Normal 6.1 - 8.1 g/dL [facility] HospitalYu[facility].; [facility] [employer], [employer]. Sodium [Moles/Vol] 140 mmol/L Normal 135 - 146 mmol/L [facility] HospitalYu[facility].; [facility] [employer] [facility] Triglyceride [Mass/Vol] 48 mg/dL Normal [facility] HospitalYuanguang Software [facility].; [place] AkesoGenX [facility] HospitalYuanguang Software [facility]. Urea nitrogen [Mass/Vol] 8 mg/dL Normal 7 - 25 mg/dL [facility] HospitalYuanguang Software [facility].; [place] [employer], [employer]. Urea nitrogen/Creatinine [Mass ratio] 13.3 mg/mg Normal 6 - 22 [facility] HospitalYuanguang Software [facility].; [facility]. Laboratory - Cytologyon 11- Microscopic observation Cyto stain Nom (Cvx) Abnormal [facility] HospitalYuanguang Software [facility].; [facility]. Laboratory - Cytologyon 08- Microscopic observation Cyto stain Nom (Cvx) Abnormal [facility] HospitalYuanguang Software [facility].; Vel[employer]. Laboratory - Hematology and Cell countson 12-11-2016 Basophils (Bld) [#/Vol] 0.10 {3/UL} Normal 0.00 - 0.10 {3/UL} [facility] HospitalYuanguang Software [facility].; VelazquezK[employer]ak Urja. Work Phone: Basophils/100 WBC (Bld) 0.4 % Normal 0.0 - 2.0 % [facility] HospitalYuanguang Software [facility].; [facility]. Work Phone: CBC W Auto Differential panel (Bld) CBC Normal [facility] HospitalYuanguang Software [facility].; VelazquezK[employer]ak Urja. Work Phone: Eosinophils (Bld) [#/Vol] 0.00 {3/UL} Normal 0.00 - 0.50 {3/UL} [facility] [employer] [facility].; [facility]. Work Phone: Eosinophils/100 WBC (Bld) 0.1 % Normal 0.0 - 7.0 % [facility] HospitalMicroJob.; [facility] HospitalYuanguang Software [facility] Work Phone: Erythrocyte distribution width (RBC) [Ratio] 13.1 % Normal 12.0 - 15.6 % [facility] HospitalYuanguang Software [facility]; [facility] HospitalYuanguang Software [facility] Work Phone: Hematocrit (Bld) [Volume fraction] 25.5 % Abnormal 34.0 - 46.0 % [facility] HospitalYuanguang Software [facility]; [facility] HospitalYuanguang Software [facility] Work Phone: Hemoglobin (Bld) [Mass/Vol] 8.7 g/dL Abnormal 12.0 - 16.0 g/dL [facility] HospitalYuanguang Software [facility]; [facility] HospitalYuanguang Software [facility] Work Phone: Lymphocytes (Bld) [#/Vol] 2.10 {3/UL} Normal 0.80 - 2.80 {3/UL} [facility] HospitalYuanguang Software [facility]; [facility] [employer] [facility] Work Phone: Lymphocytes/100 WBC (Bld) 9.1 % Abnormal 20.0 - 45.0 % [facility] HospitalYuanguang Software [facility]; [facility] Work Phone: MCH (RBC) [Entitic mass] 29 pg Normal 27 - 33 pg [facility] HospitalYuanguang Software [facility]; [facility] Work Phone: MCHC (RBC) [Mass/Vol] 34 {X10_3} Normal 32 - 3 6 {X10_3} [facility] HospitalYuanguang Software [facility]; [facility] [employer] [facility] Work Phone: MCV (RBC) [Entitic vol] 85 fL Normal 80 - 99 fL [facility] HospitalYuanguang Software [facility]; [facility] Work Phone: Monocytes (Bld) [#/Vol] 1.20 {3/UL} Abnormal 0.20 - 1.00 {3/UL} [facility] HospitalYuanguang Software [facility]; [facility] Work Phone: Monocytes/100 WBC (Bld) 5.0 % Normal 0.0 - 10.0 % [facility] HospitalMicroJob; [facility] HospitalYuanguang Software [facility] Work Phone: Neutrophils (Bld) [#/Vol] 19.50 {3/UL} Abnormal 1.50 - 7.10 {3/UL} [facility]; [facility] HospitalMicroJob. Work Phone: Neutrophils/100 WBC (Bld) 85.4 % Abnormal 46.0 - 76.0 % [facility]; [facility] HospitalYuanguang Software [facility] Work Phone: Platelet mean volume (Bld) [Entitic vol] 8.0 fL Normal 6.6 - 10.5 fL [facility] HospitalYuanguang Software [facility]; [facility] HospitalYuanguang Software [facility] Work Phone: Platelets (Bld) [#/Vol] 186 {3/UL} Normal 150 - 450 {3/UL} [facility] HospitalYuanguang Software [facility]; [facility] HospitalYuanguang Software [facility] Work Phone: RBC (Bld) [#/Vol] 3.00 {6/UL} Abnormal 4.10 - 5.30 {6/UL} [facility] HospitalYuanguang Software [facility].; [place] AkesoGenX [facility] HospitalMicroJob. Work Phone: WBC (Bld) [#/Vol] 22.8 {3/UL} Abnormal 4.5 - 10.8 {3/UL} [facility] HospitalYuanguang Software [facility].; [place] AkesoGenX [facility] HospitalMicroJob. Work Phone: Laboratory - Blood bankon ABO group Nom (Bld) O Normal [facility]; [place] AkesoGenX [facility] HospitalYuanguang Software [facility] Work Phone: Blood group antibody screen Ql Negative Normal [facility] HospitalYuanguang Software [facility]; [place] AkesoGenX [facility] HospitalMicroJob Work Phone: Blood type and Indirect antibody screen panel (Bld) Normal [facility] HospitalYuanguang Software [facility]; [place] AkesoGenX [facility] HospitalMicroJob Work Phone: Rh Nom (Bld) Positive Normal [facility]; [place] AkesoGenX [facility] Memorial HospitalMicroJob Work Phone: Laboratory - Hematology and Cell countson 12-09-2016 Basophils (Bld) [#/Vol] 0.10 {3/UL} Normal 0.00 - 0.10 {3/UL} [facility] HospitalYuanguang Software [facility]; [employer]azquezK[employer] Work Phone: Basophils/100 WBC (Bld) 0.7 % Normal 0.0 - 2.0 % [facility] HospitalYuanguang Software [facility]; [facility]. Work Phone: CBC W Auto Differential panel (Bld) CBC Normal [facility] HospitalYuanguang Software [facility]; VelazquezK[employer]ak [employer]. Work Phone: Eosinophils (Bld) [#/Vol] 0.10 {3/UL} Normal 0.00 - 0.50 {3/UL} [facility] HospitalYuanguang Software [facility].; [employer]azquezK[employer] Work Phone: Eosinophils/100 WBC (Bld) 0.4 % Normal 0.0 - 7.0 % [facility] HospitalMicroJob.; VelazquezK[employer]ak [employer]. Work Phone: Erythrocyte distribution width (RBC) [Ratio] 12.7 % Normal 12.0 - 15.6 % [facility] HospitalYuanguang Software [facility]; VelazquezK[employer]ak [employer] Work Phone: Hematocrit (Bld) [Volume fraction] 33.7 % Abnormal 34.0 - 46.0 % [facility] HospitalYuanguang Software [facility]; VelazquezK[employer]ak [employer] Work Phone: Hemoglobin (Bld) [Mass/Vol] 11.6 g/dL Abnormal 12.0 - 16.0 g/dL [facility] [employer] [facility].; VelazquezK[employer]ak [employer]. Work Phone: Lymphocytes (Bld) [#/Vol] 2.50 {3/UL} Normal 0.80 - 2.80 {3/UL} [facility].; VelazquezK[employer]ak [employer]. Work Phone: Lymphocytes/100 WBC (Bld) 16.1 % Abnormal 20.0 - 45.0 % [facility] HospitalMicroJob.; VelazquezKotak Urja. Work Phone: MCH (RBC) [Entitic mass] 29 pg Normal 27 - 33 pg [facility] HospitalYuanguang Software [facility].; [facility]. Work Phone: MCHC (RBC) [Mass/Vol] 34 {X10_3} Normal 32 - 3 6 {X10_3} [facility] HospitalYuanguang Software [facility].; [facility]. Work Phone: MCV (RBC) [Entitic vol] 84 fL Normal 80 - 99 fL [facility] HospitalYuanguang Software [facility].; VelazquezStampsy, [employer]. Work Phone: Monocytes (Bld) [#/Vol] 0.80 {3/UL} Normal 0.20 - 1.00 {3/UL} [facility] HospitalYuanguang Software [facility].; VelazquezStampsy, [employer]. Work Phone: Monocytes/100 WBC (Bld) 5.4 % Normal 0.0 - 10.0 % [facility] HospitalYuanguang Software [facility].; VelazquezK[employer]ak [employer]. Work Phone: Morphology Torito (Bld) [Interp] N/A Normal [facility] HospitalYuanguang Software [facility].; VelazquezK[employer]ak [employer]. Work Phone: Neutrophils (Bld) [#/Vol] 12.20 {3/UL} Abnormal 1.50 - 7.10 {3/UL} [facility] HospitalMicroJob.; VelazquezKotak Urja. Work Phone: Neutrophils/100 WBC (Bld) 77.4 % Abnormal 46.0 - 76.0 % [place] AkesoGenX [facility] HospitalMicroJob.; VelazquezStampsy, [employer]. Work Phone: Platelet mean volume (Bld) [Entitic vol] 8.3 fL Normal 6.6 - 10.5 fL [facility].; VelazquezK[employer]ak [employer]. Work Phone: Platelets (Bld) [#/Vol] 238 {3/UL} Normal 150 - 450 {3/UL} [employer].; [employer]. Work Phone: RBC (Bld) [#/Vol] 4.01 {6/UL} Abnormal 4.10 - 5.30 {6/UL} [employer] Work Phone: WBC (Bld) [#/Vol] 15.8 {3/UL} Abnormal 4.5 - 10.8 {3/UL} [employer].; [employer] Work Phone: Laboratory - Urinalysison Glucose Test strip (U) [Mass/Vol] Negative Normal [employer].; [employer]TOY. Protein Ql (U) Negative Normal [employer].; [employer]TO[employer]. No Panel Informationon 12-09 MANUAL DIFF N/A Normal [employer]Y.; OTOY. Work Phone: Laboratory - Urinalysison Glucose Test strip (U) [Mass/Vol] Negative Normal [employer].; [employer], [employer]. Protein Ql (U) Negative Normal [employer].; [employer] Laboratory - Urinalysison Glucose Test strip (U) [Mass/Vol] Negative Normal [employer].; [employer] Protein Ql (U) Negative Normal [employer].; [employer] Laboratory - Urinalysison Glucose Test strip (U) [Mass/Vol] Negative Normal [employer].; [employer] Protein Ql (U) Negative Normal [employer].; [employer], [employer]. Laboratory - Urinalysison Glucose Test strip (U) [Mass/Vol] Negative Normal [employer] Protein Ql (U) Negative Normal [employer].; [employer] Laboratory - Microbiology an d Antimicrobial susceptibilityon 11-05-2016 S. agalactiae Org specific cx Ql (Vag fld) CULTURE VAGINAL GROUP B Normal [facility]; [facility] HospitalYuanguang Software [facility] Laboratory - Urinalysison Glucose Test strip (U) [Mass/Vol] Negative Normal [facility].; [facility] HospitalYuanguang Software [facility] Protein Ql (U) Negative Normal [facility]; [facility] AkesoGenX [facility] HospitalYuanguang Software [facility] Laboratory - Urinalysison Glucose Test strip (U) [Mass/Vol] Negative Normal [facility].; [place] AkesoGenX [facility] HospitalYuanguang Software [facility]. Protein Ql (U) Negative Normal [facility].; [place] AkesoGenX [facility] HospitalYuanguang Software [facility]. Laboratory - Urinalysison Glucose Test strip (U) [Mass/Vol] Negative Normal [facility].; [place] AkesoGenX [facility] HospitalYuanguang Software [facility]. Protein Ql (U) Negative Normal [facility]; [place] AkesoGenX [facility] HospitalYuanguang Software [facility] Laboratory - Chemistry and C hemistry - challengeon 08-20-2016 Glucose 1 Hr post 50 g glucose PO [Mass/Vol] 112 mg/dL Normal [facility]; [place] AkesoGenX [facility] HospitalYuanguang Software [facility] Laboratory - Hematology and Cell countson 08-20-2016 Hemoglobin (Bld) [Mass/Vol] 11.6 g/dL Abnormal 11.7 - 15.5 g/dL [facility]; [place] AkesoGenX [facility] HospitalYuanguang Software [facility] Laboratory - Urinalysison Glucose Test strip (U) [Mass/Vol] Negative Normal [facility] HospitalYuanguang Software [facility]; [place] AkesoGenX [facility] HospitalYuanguang Software [facility]. Protein Ql (U) Negative Normal [facility]; [place] AkesoGenX [facility] HospitalYuanguang Software [facility]. Laboratory - Blood bankon ABO group Nom (Bld) O Normal [facility] InstituteYu[facility] Software [facility]; [place] AkesoGenX [facility] HospitalYuanguang Software [facility] Work Phone: Blood group antibody screen Ql Negative Normal [facility] HospitalYuanguang Software [facility]; [facility]. Work Phone: Blood type and Indirect antibody screen panel (Bld) Normal [facility] HospitalYuanguang Software [facility]; [place] AkesoGenX [facility] HospitalMicroJob Work Phone: Rh Nom (Bld) Positive Normal [facility] HospitalSegetis; OTOY Work Phone: Laboratory - Chemistry and C hemistry - challengeon 08-10-2016 Anion gap [Moles/Vol] 15 mmol/L Normal 10 - 2 0 mmol/L [facility] HospitalMicroJob; [employer]azquezK[employer]ak [employer] Work Phone: Basic metabolic 2000 panel BMP with eGFR Normal [place] AkesoGenX [facility] HospitalSegetis; VelazquezKotak Urja Work Phone: Bilirubin Ql (U) Negative Normal [place] AkesoGenX [facility] HospitalSegetis; VelazquezKotak Urja Calcium [Mass/Vol] 9.2 mg/dL Normal 8.6 - 10. 2 mg/dL [place] AkesoGenX [facility] HospitalSegetis; VelazquezKotak Urja Work Phone: Chloride [Moles/Vol] 102 mmol/L Normal 98 - 10 7 mmol/L [place] AkesoGenX [facility] HospitalSegetis; VelazquezKotak Urja Work Phone: CO2 [Moles/Vol] 22.0 mmol/L Normal 21.0 - 31.0 mmol/L [place] AkesoGenX [facility] HospitalSegetis; VelazquezKotak Urja Work Phone: Creatinine [Mass/Vol] 0.5 mg/dL Abnormal 0.6 - 1.2 mg/dL [facility] HospitalSegetis; VelazquezKotak Urja Work Phone: GFR/1.73 sq M.predicted among blacks MDRD (S/P/Bld) [Vol rate/Area] 174 {ML/MINUTE} Normal 60 - 999 {ML/MINUTE } [facility] [employer]; VelazquezKotak Urja Work Phone: GFR/1.73 sq M.predicted MDRD (S/P/Bld) [Vol rate/Area] 144 {ML/MINUTE} Normal 60 - 999 {ML/MINUTE } [employer]; VelazquezKotak Urja Work Phone: Glucose [Mass/Vol] 87 mg/dL Normal 74 - 106 mg/dL [facility] HospitalYuanguang Software [facility]; [place] AkesoGenX [facility] HospitalMicroJob Work Phone: Ketones Ql (U) Negative Normal [facility]; [place] AkesoGenX [facility] HospitalYuanguang Software [facility] pH (U) 7.0 [pH] Normal [facility]; [place] AkesoGenX [facility] HospitalMicroJob Potassium [Moles/Vol] 3.5 mmol/L Normal 3.5 - 5.1 mmol/L [facility] HospitalYuanguang Software [facility]; [place] AkesoGenX [facility] HospitalMicroJob Work Phone: Sodium [Moles/Vol] 135 mmol/L Abnormal 136 - 145 mmol/L [facility] HospitalYuanguang Software [facility]; [place] AkesoGenX [facility] HospitalYuanguang Software [facility] Work Phone: Specific gravity (U) [Rel density] 1.015 Normal [facility] HospitalYuanguang Software [facility]; [facility] Urea nitrogen [Mass/Vol] 4 mg/dL Abnormal 6 - 20 mg/dL [facility] HospitalYuanguang Software [facility]; [place] [employer] Work Phone: Urobilinogen Qn (U) 0.2 mg/dL Normal [facility] InstituteYu[facility] Software [facility]; [place] AkesoGenX [facility] HospitalMicroJob Laboratory - Hematology and Cell countson 08-10-2016 Basophils (Bld) [#/Vol] 0.10 {3/UL} Normal 0.00 - 0.10 {3/UL} [facility] HospitalYuanguang Software [facility]; [facility] [facility] Work Phone: Basophils/100 WBC (Bld) 0.5 % Normal 0.0 - 2.0 % [facility] HospitalYuangu[employer] Software [facility]; [facility] Work Phone: CBC W Auto Differential panel (Bld) CBC Normal [facility] HospitalYuanguang Software [facility]; [facility] Work Phone: Eosinophils (Bld) [#/Vol] 0.10 {3/UL} Normal 0.00 - 0.50 {3/UL} [facility] HospitalYuangu[facility] Software [facility]; [facility] Work Phone: Eosinophils/100 WBC (Bld) 0.6 % Normal 0.0 - 7.0 % [facility] HospitalYuanguang Software [facility]; [place] AkesoGenX [facility] HospitalMicroJob Work Phone: Erythrocyte distribution width (RBC) [Ratio] 12.6 % Normal 12.0 - 15.6 % [facility] HospitalYuanguang Software [facility]; [facility] Work Phone: Hematocrit (Bld) [Volume fraction] 36.0 % Normal 34.0 - 46.0 % [facility] HospitalYuanguang Software [facility]; [facility] Work Phone: Hemoglobin (Bld) [Mass/Vol] 12.6 g/dL Normal 12.0 - 16.0 g/dL [facility] HospitalYuanguang Software [facility]; [facility] HospitalMicroJob Work Phone: Hemoglobin Ql (U) large Abnormal [facility] HospitalYuanguang Software [facility]; [facility] HospitalYuanguang Software [facility] Lymphocytes (Bld) [#/Vol] 1.70 {3/UL} Normal 0.80 - 2.80 {3/UL} [facility] HospitalYuangu[facility] Software [facility]; [facility] Work Phone: Lymphocytes/100 WBC (Bld) 9.3 % Abnormal 20.0 - 45.0 % [facility] HospitalYuanguang Software [facility]; [facility] Work Phone: MCH (RBC) [Entitic mass] 30 pg Normal 27 - 33 pg [facility] HospitalYuanguang Software [facility]; [facility] Work Phone: MCHC (RBC) [Mass/Vol] 35 {X10_3} Normal 32 - 3 6 {X10_3} [facility] HospitalMicroJob; [facility] Work Phone: MCV (RBC) [Entitic vol] 86 fL Normal 80 - 99 fL [facility] HospitalYuanguang Software [facility]; [facility] Work Phone: Monocytes (Bld) [#/Vol] 0.40 {3/UL} Normal 0.20 - 1.00 {3/UL} [employer]quezK[employer].; VelazquezK[employer]ak [employer]. Work Phone: Monocytes/100 WBC (Bld) 2.2 % Normal 0.0 - 10.0 % [facility].; VelazquezK[employer]ak [employer]. Work Phone: Morphology Torito (Bld) [Interp] N/A Normal [facility].; VelazquezK[employer]ak [employer]. Work Phone: Neutrophils (Bld) [#/Vol] 16.00 {3/UL} Abnormal 1.50 - 7.10 {3/UL} VelazquezK[employer]ak [employer].; VelazquezKotak [employer]. Work Phone: Neutrophils/100 WBC (Bld) 87.4 % Abnormal 46.0 - 76.0 % [facility].; [employer], [employer]. Work Phone: Platelet mean volume (Bld) [Entitic vol] 7.8 fL Normal 6.6 - 10.5 fL [facility].; [employer]Y. Work Phone: Platelets (Bld) [#/Vol] 224 {3/UL} Normal 150 - 450 {3/UL} VelazquezKotak [employer].; [employer]TOY. Work Phone: RBC (Bld) [#/Vol] 4.19 {6/UL} Normal 4.10 - 5.30 {6/UL} [employer]azquezK[employer]ak [employer].; VelazquezK[employer]ak [employer]. Work Phone: WBC (Bld) [#/Vol] 18.4 {3/UL} Abnormal 4.5 - 10.8 {3/UL} VelazquezK[employer]ak [employer].; VelazquezStampsy, [employer]. Work Phone: Laboratory - Specimen inform ationon 08-10-2016 Appearance (U) clear Normal VelazquezKotak Urja.; OTOY. Color (U) yellow Normal VelazquezKotak Ur[employer].; VelazquezK[employer]ak [employer]. Laboratory - Urinalysison Glucose Test strip (U) [Mass/Vol] Negative Normal [facility] HospitalMicroJob.; OTOY Leukocyte esterase Test strip Ql (U) trace Normal [facility].; VelazquezKotak Urja. Nitrite Ql (U) Negative Normal [facility] HospitalYuanguang Software [facility].; OTOY. Protein Ql (U) Negative Normal [facility].; OTOY. No Panel Informationon 08-10 AGE 31 {years} Normal [facility].; [employer]. Work Phone: MANUAL DIFF N/A Normal [employer] [employer]; VelazquezK[employer]ak [employer]. Work Phone: Laboratory - Chemistry and C hemistry - challengeon 08-09-2016 Bilirubin [Mass/Vol] Negative Normal [facility] [employer]; [employer]. Work Phone: Glucose [Mass/Vol] NORM Normal [employer] [employer]; [employer]. Work Phone: pH (Bld) 5 [pH] Normal [employer]; [employer]. Work Phone: Protein [Mass/Vol] 15 g/dL Abnormal [facility].; [employer]TOY. Work Phone: Laboratory - Hematology and Cell countson 08-09-2016 WBC (Bld) [#/Vol] 25 10*3/uL Abnormal [facility].; OTOY. Work Phone: Laboratory - Microbiology an d Antimicrobial susceptibilityon 08-09-2016 Bacteria identified Cx Nom (U) CULTURE URINE Normal [facility] [employer]; [employer]TOY. Work Phone: Bacteria identified Cx Nom (Unsp spec) 1+ Normal [employer] [employer]; [employer]TOY. Work Phone: Laboratory - Specimen inform ationon 08-09-2016 Clarity (U) clear Normal [facility] HospitalMicroJob; OTOY. Work Phone: Color (U) p.yel Normal [facility]; VelazquezKotak Urja. Work Phone: Specimen type Nom (Spec) Clean catch Normal [facility] HospitalMicroJob; OTOY. Work Phone: Laboratory - Urinalysison Crystals LM Nom (Urine sed) NONE Normal [facility] HospitalMicroJob; OTOY. Work Phone: Nitrite Ql (U) Negative Normal [facility]; VelazquezKotak Urja. Work Phone: Urinalysis dipstick W Reflex Microscopic panel (U) URINALYSIS Normal [facility].; [employer]TOY. Work Phone: Yeast LM Ql (Urine sed) NONE Normal [facility]; [employer]TOY. Work Phone: No Panel Informationon 08-09 Amorphous NONE Normal [employer]azquezAdSpar[employer]; OTOY. Work Phone: Blood 250 Abnormal VelazquezKotak [employer]; OTOY. Work Phone: Casts NONE Normal [facility] [employer]; [employer]. Work Phone: Epi Cells OCC Normal [facility]; OTOY. Work Phone: Ketone Negative Normal VelazquezAdSparx; OTOY. Work Phone: Microscopic SEE BELOW Normal [facility].; OTOY. Work Phone: Mucous 1+ Normal VelazquezKotak Urja.; OTOY. Work Phone: Rbc 20-25 Abnormal 0 - 3 VelazquezKotak Urja.; OTOY. Work Phone: Sp Brumley 1.020 Normal CSR; OTOY. Work Phone: Urobilinog NORM Normal CSR; OTOY. Work Phone: Wbc 6-10 Normal 0 - 5 VelazquezAdSparx; OTOY. Work Phone: Laboratory - Urinalysison Glucose Test strip (U) [Mass/Vol] Negative Normal CSR; CSR Protein Ql (U) Negative Normal CSR; OTOY. Laboratory - Urinalysison Glucose Test strip (U) [Mass/Vol] Negative Normal CSR; OTOY. Protein Ql (U) Negative Normal CSR; OTOY. Laboratory - Blood bankon ABO group Nom (Bld) O Normal [facility]; OTOY. Blood group antibody screen Ql Negative Normal CSR; OTOY. Laboratory - Chemistry and C hemistry - challengeon 05-01-2016 Bilirubin Ql (U) Negative Normal CSR; OTOY. Ketones Ql (U) Negative Normal CSR; OTOY. pH (U) 5.0 [pH] Abnormal CSR; OTOY. Specific gravity (U) [Rel density] 1.005 Abnormal CSR; OTOY. TSH Qn 1.31 m[IU]/L Normal 0.40 - 4.50 {mIU/L} CSR; OTOY. Urobilinogen Qn (U) 0.2 mg/dL Normal [facility]; OTOY. Laboratory - Hematology and Cell countson 05-01-2016 Basophils (Bld) [#/Vol] 40 {Cells}/uL Normal 0 - 200 {Cells}/uL [facility] HospitalYuanguang Software [facility].; [facility] Basophils/100 WBC (Bld) 0 % Normal 0 - 1 % [facility] HospitalYuanguang Software [facility].; [place] AkesoGenX [facility] HospitalYuanguang Software [facility] Eosinophils (Bld) [#/Vol] 60 {Cells}/uL Normal 15 - 500 {Cells}/uL [facility] HospitalYuanguang Software [facility].; [facility] Eosinophils/100 WBC (Bld) 1 % Normal 0 - 4 % [facility] HospitalYuanguang Software [facility].; [facility] Erythrocyte distribution width (RBC) [Ratio] 12.4 % Normal 11.0 - 15.0 % [facility] HospitalYuanguang Software [facility] [facility].; [place] [facility], [facility] Hematocrit (Bld) [Volume fraction] 38.4 % Normal 35.0 - 45.0 % [facility] HospitalYuanguang Software [facility].; [place] [employer] [facility], [facility] Hemoglobin (Bld) [Mass/Vol] 12.8 g/dL Normal 11.7 - 15.5 g/dL [facility] HospitalYuanguang Software [facility].; [place] [employer] [facility], [facility] Hemoglobin Ql (U) trace, hemolyzed Abnormal H [facility] HospitalYuangu[facility] Software [facility].; [place] AkesoGenX [facility] HospitalYuanguang Software [facility] Lymphocytes (Bld) [#/Vol] 2300 {Cells}/uL Normal 850 - 3900 {Cells}/uL [facility] HospitalYuanguang Software [facility].; [place] [employer] [facility], [facility] Lymphocytes/100 WBC (Bld) 26 % Normal 12 - 47 % [facility] HospitalYuanguang Software [facility].; [place] [employer] [facility], [facility]. MCH (RBC) [Entitic mass] 29.3 pg Normal 27.0 - 33.0 PG [place] AkesoGenX [facility] HospitalYuanguang Software [facility].; [employer], [facility]. MCHC (RBC) [Mass/Vol] 33.3 g/dL Normal 32.0 - 36.0 g/dL [facility] HospitalYuanguang Software [facility].; [place] [employer] [facility], [facility]. MCV (RBC) [Entitic vol] 88.0 fL Normal 80.0 - 100.0 fL [place] AkesoGenX [facility] HospitalYuanguang Software [facility].; [employer]St[employer], [facility] Monocytes (Bld) [#/Vol] 350 {Cells}/uL Normal 200 - 950 {Cells}/uL [employer].; [facility]. Monocytes/100 WBC (Bld) 4 % Normal 4 - 12 % [facility] [email or web address].; [facility] [facility] Neutrophils (Bld) [#/Vol] 6080 {Cells}/uL Normal 1500 - 7800 {Cells}/uL [facility] HospitalYuanguang Software [facility].; [facility]. Neutrophils/100 WBC (Bld) 69 % Normal 40 - 75 % [facility] HospitalYuanguang Software [facility].; [facility]. Platelet mean volume (Bld) [Entitic vol] 9.3 fL Normal 7.5 - 11.5 fL [facility] HospitalYuanguang Software [facility].; [facility] Platelets (Bld) [#/Vol] 263 10*3/uL Normal 140 - 400 10*3/uL [facility] HospitalMicroJob.; [facility]. RBC (Bld) [#/Vol] 4.36 10*6/uL Normal 3.80 - 5.10 10*6/uL [facility] HospitalMicroJob.; [facility]. WBC (Bld) [#/Vol] 8.8 10*3/uL Normal 3.8 - 10.8 10*3/uL [facility].; [employer] [facility] Laboratory - Microbiology an d Antimicrobial susceptibilityon 05-01-2016 HBV surface Ag IA Ql Non-Reactive Normal [facility]; [employer]azquezK[employer] [facility] Reagin Ab RPR Ql (S) Non-Reactive Normal [facility] SpringsYuangu[facility] Software [facility]; [employer]azquezK[employer]ak [employer] Rubella virus IgG Qn (S) 2.75 [IU]/mL Normal [facility] [employer] [facility].; [employer]azquezK[employer]ak [employer]. Laboratory - Specimen inform ationon 05-01-2016 Appearance (U) clear Normal [facility]; [employer] Color (U) yellow Normal [facility].; VelazquezKotak Urja Laboratory - Urinalysison Glucose Test strip (U) [Mass/Vol] Negative Normal [facility] [email or web address].; [employer]azquezK[employer]ak Ur[employer] Leukocyte esterase Test strip Ql (U) trace Normal [facility]; [employer]. Nitrite Ql (U) Negative Normal [facility] HospitalYuanguang Software [facility].; [facility] HospitalMicroJob Protein Ql (U) Negative Normal [facility] HospitalYuanguang Software [facility].; [place] AkesoGenX [facility] HospitalYuanguang Software [facility] No Panel Informationon 05-01 RH TYPE Positive Normal [facility] HospitalYuanguang Software [facility].; [facility] Laboratory - Chemistry and C hemistry - challengeon 02-08-2014 Albumin [Mass/Vol] 4.5 g/dL Normal 3.4 - 4.8 g/dL [facility] HospitalYuanguang Software [facility]; [place] AkesoGenX [facility] HospitalYuanguang Software [facility] Albumin [Mass/Vol] 1.7 g/dL Abnormal 0.9 - 1.6 [facility] HospitalYuanguang Software [facility].; [place] AkesoGenX [facility] HospitalYuanguang Software [facility]. ALP [Catalytic activity/Vol] 57 U/L Normal 38 - 126 U/L [facility] HospitalYuanguang Software [facility].; [place] [facility]kesoGenX [facility], [employer]. ALT [Catalytic activity/Vol] 7 U/L Abnormal 8 - 35 U/L [facility] HospitalYuanguang Software [facility].; [place] [employer] [facility], [employer]. ALT No additional P-5'-P [Catalytic activity/Vol] 7 U/L Abnormal 8 - 35 U/L [facility] HospitalYuanguang Software [facility].; [place] [facility]oGen[facility], [employer]. AST [Catalytic activity/Vol] 11 U/L Abnormal 13 - 39 U/L [facility] HospitalYuanguang Software [facility].; [place] [facility]oGen[facility], [facility]. Bilirubin [Mass/Vol] 1.0 mg/dL Normal 0.0 - 1 .5 mg/dL [facility] HospitalYuanguang Software [facility].; [place] [facility]oGen[facility], [facility]. Calcium [Mass/Vol] 9.2 mg/dL Normal 8.6 - 10. 2 mg/dL [facility] HospitalYuanguang Software [facility].; [place] [employer] [facility], [facility]. Chloride [Moles/Vol] 104 mmol/L Normal 98 - 10 7 mmol/L [facility] HospitalYuanguang Software [facility].; [place] [facility]kesoGenX [facility], [facility]. Cholesterol [Mass/Vol] 204 mg/dL Abnormal 0 - 200 mg/dL [facility] HospitalYuanguang Software [facility].; [place] [facility]oGen[facility], [facility]. Cholesterol in HDL [Mass or moles/Vol] 81 mg/dL Abnormal 40 - 60 mg/dL [facility] HospitalYuanguang Software [facility].; [place] [facility]kesoGen[facility], [facility]. Cholesterol in LDL [Mass/Vol] 115 mg/dL Normal 0 - 129 mg/dL [facility].; [facility], [facility] Cholesterol.total/Cho lesterol in HDL [Mass ratio] 2.5 {ratio} Normal 0.0 - 5.0 [facility]; [facility], [facility] CO2 [Moles/Vol] 25.0 mmol/L Normal 13.0 - 29.0 mmol/L [facility]; [facility], [facility] Comprehensive metabolic 2000 panel CMP with eGFR Normal [facility]; [facility], [facility] Creatinine [Mass/Vol] 0.7 mg/dL Normal 0.6 - 1.2 mg/dL [facility]; [facility], [facility]. GFR/1.73 sq M.predicted among blacks MDRD (S/P/Bld) [Vol rate/Area] mL/min/{1.73_m2} Normal 60 - 999 {ML/MINUTE } [facility], [facility].; [facility], [facility]. GFR/1.73 sq M.predicted MDRD (S/P/Bld) [Vol rate/Area] mL/min/{1.73_m2} Normal 60 - 999 {ML/MINUTE } [facility], [facility].; [facility], [facility]. Globulin (S) [Mass/Vol] 2.6 g/dL Normal 1.5 - 3.8 g/dL [facility], [facility].; [facility], [facility]. Glucose [Mass/Vol] 73 mg/dL Abnormal 74 - 106 mg/dL [facility], [facility].; [facility], [facility]. Lipid 1996 panel LIPID PROFILE Normal [facility]; [facility], [facility] Potassium [Moles/Vol] 4.0 mmol/L Normal 3.5 - 5.1 mmol/L [facility], [facility]; [facility], [facility] Protein [Mass/Vol] 7.1 g/dL Normal 6.4 - 8.3 g/dL [facility], [facility].; [facility], [facility]. Sodium [Moles/Vol] 135 mmol/L Abnormal 136 - 145 mmol/L [facility], [facility].; [facility], [facility] Triglyceride [Mass/Vol] 41 mg/dL Normal 0 - 150 mg/dL [facility] HospitalMicroJob.; [place] AkesoGenX [facility] HospitalMicroJob. Urea nitrogen [Mass/Vol] 8 mg/dL Normal 6 - 20 mg/dL [place] [facility]oGenX [facility] HospitalMicroJob.; [place] AkesoGenX [facility] HospitalMicroJob Urea nitrogen/Creatinine [Mass ratio] 11 {ratio} Normal 0 - 30 {ratio} [place] [facility]kesoGenX [facility] HospitalMicroJob.; [employer]azquezK[employer]ak Ur[employer]. Laboratory - Microbiology an d Antimicrobial susceptibilityon 02-08-2014 C. trachomatis DNA COLETTE+probe Ql (Unsp spec) Normal [facility].; [employer]azquezK[employer]. No Panel Informationon 02-08 AGE 28 {years} Normal [employer]azquezK[employer]ak [employer].; [employer]azquezK[employer]ak Urja Vital Signs Date Time Vital Sign Value Performing Clinician Facility 01-02-2025 10:10-0400 Body height 170.2 cm [facility] Comment on above: Per pt 01-02-2025 10:10-0400 Body mass index (BMI) [Ratio] 24.59 kg/m2 [facility] 01-02-2025 10:10-0400 Body weight 71.22 kg [facility] Comment on above: Per pt 10-26-2024 10:30-0400 Body temperature 97.9 [degF] Alanis Batista PA Work Phone: [facility] 10-26-2024 10:30-0400 Diastolic blood pressure 54 mm[Hg] Alanis Batista PA Work Phone: [facility] 10-26-2024 10:30-0400 Heart rate 79 /min Alanis Batista PA Work Phone: [facility] 10-26-2024 10:30-0400 Respiratory rate 16 /min Alanis Batista PA Work Phone: [facility] 10-26-2024 10:30-0400 SaO2% (BldA) [Mass fraction] 97 % Alanis Batista PA Work Phone: [facility] 10-26-2024 10:30-0400 Systolic blood pressure 99 mm[Hg] Alanis Batista PA Work Phone: [facility] 10-26-2024 08:53-0400 Body height 170.18 cm Alanis Batista PA Work Phone: [facility] 10-26-2024 08:53-0400 Body mass index (BMI) [Ratio] 24.8 kg/m2 Alanis Batista PA Work Phone: [facility] 10-26-2024 08:53-0400 Body weight 72.03 kg Alanis Batista PA Work Phone: [facility] 10-04-2024 13:16-0400 Body height 170.18 cm Alanis Batista PA Work Phone: [phone] [place] [address] 10-04-2024 13:16-0400 Body mass index (BMI) [Ratio] 24.9 kg/m2 Alanis Batista PA Work Phone: [phone] [place] [address] 10-04-2024 13:16-0400 Body weight 72.12 kg Alanis Batista PA Work Phone: [facility] 10-04-2024 13:16-0400 Diastolic blood pressure 86 mm[Hg] Alanis Batista PA Work Phone: [facility] 10-04-2024 13:16-0400 Heart rate 90 /min Alanis Batista PA Work Phone: [facility] 10-04-2024 13:16-0400 Respiratory rate 17 /min Alanis Batista PA Work Phone: [facility] 10-04-2024 13:16-0400 SaO2% (BldA) [Mass fraction] 99 % Alanis Batista PA Work Phone: [facility] 10-04-2024 13:16-0400 Systolic blood pressure 126 mm[Hg] Alanis Batista PA Work Phone: [facility] 08-30-2024 13:17-0500 Body height 171.45 cm Juliet Patten LPN [facility], [facility]. 08-30-2024 13:17-0500 Body mass index (BMI) [Ratio] 25.62 kg/m2 Juliet Patten [facility] [employer], [employer] 08-30-2024 13:17-0500 Body surface area Derived from formula 1.88 m2 Juliet Patten [employer] TEACHER [facility] [employer]St[employer], [employer] 08-30-2024 13:17-0500 Body weight 75.3 kg Juliet Patten [facility] [employer], [employer] 08-30-2024 13:17-0500 Diastolic blood pressure 75 mm[Hg] Juliet Patten [facility] [employer], [employer] Comment on above: Patient Position: Sitting; Cuff Location : Right Arm; Cuff Size: Standard 08-30-2024 13:17-0500 Heart rate 71 /min Juliet Patten [facility] [employer], [employer] Comment on above: Pattern: Regular 08-30-2024 13:17-0500 Systolic blood pressure 110 mm[Hg] Juliet Patten [employer] TEACHER [place] [facility].; [employer]St[employer], [employer]. Comment on above: Patient Position: Sitting; Cuff Location : Right Arm; Cuff Size: Standard 07-14-2023 14:42-0500 Body height 171.45 cm Juliet Patten [employer] TEACHER [facility] [employer], [employer] 07-14-2023 14:42-0500 Body mass index (BMI) [Ratio] 24.38 kg/m2 Juliet Patten [facility] AkesoGenX [facility], [facility].; [employer]quezSt[employer], Inc. 07-14-2023 14:42-0500 Body surface area Derived from formula 1.84 m2 Juliet Patten [facility] [employer].; [employer], [employer]. 07-14-2023 14:42-0500 Body weight 71.67 kg Juliet Patten [employer] TEACH[employer] [facility] [employer] [facility] [employer], [employer]. 07-14-2023 14:42-0500 Diastolic blood pressure 77 mm[Hg] Juliet Patten JAVAD [facility]. Comment on above: Patient Position: Sitting; Cuff Location : Left Arm; Cuff Size: Standard 07-14-2023 14:42-0500 Heart rate 88 /min Juliet Patten LPBaptist [facility], [facility].; [facility], [facility]. Comment on above: Pattern: Regular 07-14-2023 14:42-0500 Systolic blood pressure 113 mm[Hg] Juliet Patten [facility], [facility].; [facility]. Comment on above: Patient Position: Sitting; Cuff Location : Left Arm; Cuff Size: Standard 05-13-2023 11:30-0400 Diastolic blood pressure 85 mm[Hg] PA Alanis Batista PA Work Phone: [facility] 05-13-2023 11:30-0400 Heart rate 84 /min PA Alanis Batista PA Work Phone: [facility] 05-13-2023 11:30-0400 Respiratory rate 16 /min PA Alanis Batista PA Work Phone: [facility] 05-13-2023 11:30-0400 SaO2% (BldA) [Mass fraction] 100 % PA Alanis Batista PA Work Phone: [facility] 05-13-2023 11:30-0400 Systolic blood pressure 114 mm[Hg] PA Alanis Batista PA Work Phone: [facility] 05-13-2023 10:56-0400 Body temperature 97.3 [degF] PA Alanis Batista PA Work Phone: [facility] 05-13-2023 09:50-0400 Body height 170.18 cm PA Alanis Batista PA Work Phone: [facility] 05-13-2023 09:50-0400 Body mass index (BMI) [Ratio] 24.1 kg/m2 PA Alanis Batista PA Work Phone: [facility] 05-13-2023 09:50-0400 Body weight 70 kg PA Alanis Batista PA Work Phone: [facility] 11-02-2022 08:06-0400 Body height 171.45 cm Juliet Collier Earline [employer] [facility].; [employer], [employer] 11-02-2022 08:06-0400 Body mass index (BMI) [Ratio] 23.76 kg/m2 Juliet Collier Earline [employer], [employer].; [employer], [employer] 11-02-2022 08:06-0400 Body surface area Derived from formula 1.82 m2 Juliet Collier Earline [employer]St[employer], Inc.; [employer], [employer]. 11-02-2022 08:06-0400 Body weight 69.85 kg Juliet Collier Earline [employer]St[employer], Inc.; [employer], [employer]. 11-02-2022 08:06-0400 Diastolic blood pressure 81 mm[Hg] Juliet M Earline [employer]TH [employer], [employer].; [employer]. Comment on above: Patient Position: Sitting; Cuff Location : Left Arm; Cuff Size: Standard 11-02-2022 08:06-0400 Heart rate 76 /min Juliet Collier Earline [employer]quez[employer] [facility], [facility].; [employer]. Comment on above: Pattern: Regular 11-02-2022 08:06-0400 Systolic blood pressure 123 mm[Hg] Juliet Collier Earline [employer]St[employer], [employer].; [employer]. Comment on above: Patient Position: Sitting; Cuff Location : Left Arm; Cuff Size: Standard 11-25-2021 08:55-0400 Body height 171.45 cm June Lamas LPN [employer], [employer].; [employer]. 11-25-2021 08:55-0400 Body mass index (BMI) [Ratio] 22.99 kg/m2 June Lamas LPN [employer]St[employer], Inc.; [employer], [employer] 11-25-2021 08:55-0400 Body surface area Derived from formula 1.79 m2 June Lamas LPN [employer]St[employer], Inc.; [employer]. 11-25-2021 08:55-0400 Body temperature 98.4 [degF] June Lamas LPN [facility], [facility].; [place] [facility], [employer]. Comment on above: Method: Tympanic 11-25-2021 08:55-0400 Body weight 67.59 kg June [facility]as [facility]PCape [facility].; [place] AkesoGenX [facility], [facility] 11-25-2021 08:55-0400 Diastolic blood pressure 77 mm[Hg] June Lamas LPN [facility], [facility].; [place] A[employer]oGen[employer] [facility], [employer]. Comment on above: Patient Position: Sitting; Cuff Location : Right Arm; Cuff Size: Standard 11-25-2021 08:55-0400 Heart rate 101 /min June Lamas LPBapt[facility], [facility].; [place] [employer]kesoGen[facility], [employer]. Comment on above: Pattern: Regular 11-25-2021 08:55-0400 Inhaled oxygen concentration 20 % June Lamas LPN [facility], [facility].; [place] [employer]oGen[employer] [facility], [employer]. Comment on above: Room air 11-25-2021 08:55-0400 Inhaled oxygen concentration 21 % June Lamas LPBaptist Medical [facility], [facility].; [employer], [employer]. Comment on above: Room air 11-25-2021 08:55-0400 SaO2% (BldA) [Mass fraction] 99 % June Lamas [facility].; [place] [facility]kesoGenX [facility], [facility] 11-25-2021 08:55-0400 Systolic blood pressure 117 mm[Hg] June Lamas LPN [facility], [facility].; [place] [employer]kesoGenX [facility], [employer]. Comment on above: Patient Position: Sitting; Cuff Location : Right Arm; Cuff Size: Standard 09-01-2021 11:40-0500 Body height 171.45 cm Juliet Patten LPN [facility], [facility].; [place] AkesoGenX [facility] HospitalYuanguang Software [facility]. 09-01-2021 11:40-0500 Body mass index (BMI) [Ratio] 23.76 kg/m2 Juliet Patten [facility], [facility].; [place] [employer]oGen[facility], [employer]. 09-01-2021 11:40-0500 Body surface area Derived from formula 1.82 m2 Juliet Patten [facility], [facility].; VelazquezWeiser Memorial HospitalMicroJob. 09-01-2021 11:40-0500 Body temperature 100 [degF] Juliet Alvaradoach [facility] ChildrenMicro[facility].; [employer]. Comment on above: Method: Tympanic 09-01-2021 11:40-0500 Body weight 69.85 kg Juliet Vacalabach [facility] ChildrenYuanguang Software Inc.; VelazquezIunika Inc. 09-01-2021 11:40-0500 Diastolic blood pressure 81 mm[Hg] Juliet Patten [facility] ChildrenMicro[facility].; [employer]azquezK[employer]ak Ur[employer]. Comment on above: Patient Position: Sitting; Cuff Location : Left Arm; Cuff Size: Standard 09-01-2021 11:40-0500 Heart rate 99 /min Juliet Collier Earline [facility] Children[facility].; [employer]. Comment on above: Pattern: Regular 09-01-2021 11:40-0500 Inhaled oxygen concentration 20 % Juliet Collier Earline [facility] ChildrenMicro[facility].; [employer]. Comment on above: Room air 09-01-2021 11:40-0500 Inhaled oxygen concentration 21 % Juliet Patten [facility] AkesoGenX [facility] HospitalMicroJob.; VelazquezK[employer]ak Ur[employer]. Comment on above: Room air 09-01-2021 11:40-0500 SaO2% (BldA) [Mass fraction] 98 % Juliet Alvaradoach [facility] AkesoGenX [facility] HospitalMicroJob.; [employer]azquezK[employer] Ur[employer]. 09-01-2021 11:40-0500 Systolic blood pressure 124 mm[Hg] Juliet Patten [facility] AkesoGenX [facility] HospitalMicroJob.; [employer]azquezK[employer] Ur[employer]. Comment on above: Patient Position: Sitting; Cuff Location : Left Arm; Cuff Size: Standard 05-12-2021 14:28-0400 Body height 171.45 cm Juliet Vacalabach [facility] AkesoGenX [facility] HospitalMicroJob.; [employer]azquezK[employer]ak Ur[employer]. 05-12-2021 14:28-0400 Body mass index (BMI) [Ratio] 23.3 kg/m2 Juliet Patten [facility].; VelazquezK[employer]ak Ur[employer]. 05-12-2021 14:28-0400 Body surface area Derived from formula 1.8 m2 Juliet Collier Earline [facility], [facility].; Velazquez AkesoGenX [facility] HospitalYuanguang Software [facility]. 05-12-2021 [id number]:[id number] Body weight 68.49 kg Juliet Collier Earline FARNSWORTH [facility], [facility].; Velazquez AkesoGenX [facility], [facility]. 05-12-2021 [id number] Diastolic blood pressure 83 mm[Hg] Juliet Collier Earline [facility].; VelazquezK[employer]ak Ur[employer]. Comment on above: Patient Position: Sitting; Cuff Location : Left Arm; Cuff Size: Standard 05-12-2021 [id number]:[id number] Heart rate 76 /min Juliet Vacalabach [facility], [facility].; [employer] [facility]. Comment on above: Pattern: Regular 05-12-2021 14:28-0400 Systolic blood pressure 118 mm[Hg] Juliet Vacalabach [facility] AkesoGenX [facility] HospitalYuanguang Software [facility].; VelazquezK[employer]ak Ur[employer]. Comment on above: Patient Position: Sitting; Cuff Location : Left Arm; Cuff Size: Standard 12-05-2020 [id number] Body height 171.45 cm [employer] Work Phone: VelazquezPro Hoop Strength [facility] HospitalMicroJob.; VelazquezK[employer] Ur[employer]. 12-05-2020 09:02-0400 Body mass index (BMI) [Ratio] 22.53 kg/m2 [employer] Work Phone: [employer]azquezK[employer]ak [employer].; VelazquezIunika [facility]. 12-05-2020 09:02-0400 Body surface area Derived from formula 1.78 m2 LUMI Mask PA-C Work Phone: [employer]quezK[employer].; [employer]azquezK[employer]. 12-05-2020 09:02-0400 Body temperature 97 [degF] LUMI Mask PA-C Work Phone: [employer]quezK[employer].; [employer]azquezK[employer]. Comment on above: Method: Tympanic 12-05-2020 09:02-0400 Body weight 66.23 kg Supriya Anne Jesse PA-C Work Phone: [employer]quezK[employer].; [employer]quezK[employer]. 12-05-2020 09:02-0400 Diastolic blood pressure 71 mm[Hg] Supriya Dayana Jesse PA-C Work Phone: [employer].; [employer]. Comment on above: Patient Position: Sitting; Cuff Location : Right Arm; Cuff Size: Standard 12-05-2020 09:02-0400 Heart rate 106 /min Supriya Dayana Jesse PA-C Work Phone: [employer]azquezAdSpar[employer]; [employer]. Comment on above: Pattern: Regular 12-05-2020 09:02-0400 Systolic blood pressure 106 mm[Hg] Supriya Anne Jesse PA-C Work Phone: VelazquezAdSparx; [employer]. Comment on above: Patient Position: Sitting; Cuff Location : Right Arm; Cuff Size: Standard 09-19-2020 11:05-0500 Body height 171.45 cm Supriya Dayana threadsy PA-C Work Phone: CSR; [employer]. 09-19-2020 11:05-0500 Body mass index (BMI) [Ratio] 21.91 kg/m2 Supriya Dayana Jesse PA-C Work Phone: CSR; [employer]. 09-19-2020 11:05-0500 Body surface area Derived from formula 1.76 m2 Supriya Dayana Jesse PA-C Work Phone: OTOY.; OTOY. 09-19-2020 11:05-0500 Body temperature 97.3 [degF] Supriya Dayana Jesse PA-C Work Phone: CSR; OTOY. Comment on above: Method: Tympanic 09-19-2020 11:05-0500 Body weight 64.41 kg Supriya Stratton PA-C Work Phone: [employer]. 09-19-2020 11:05-0500 Diastolic blood pressure 78 mm[Hg] Supriya Stratton PA-C Work Phone: [employer]TOY. Comment on above: Patient Position: Sitting; Cuff Location : Right Arm; Cuff Size: Standard 09-19-2020 11:05-0500 Heart rate 111 /min Supirya Stratton PA-C Work Phone: [employer] OTOY. Comment on above: Pattern: Regular 09-19-2020 11:05-0500 Systolic blood pressure 119 mm[Hg] Supriya Stratton PA-C Work Phone: [employer] OTOY. Comment on above: Patient Position: Sitting; Cuff Location : Right Arm; Cuff Size: Standard 08-19-2020 15:49-0500 Body height 171.45 cm Supriya Cheng RN [employer].; [employer]TOY. 08-19-2020 15:49-0500 Body mass index (BMI) [Ratio] 22.84 kg/m2 Supriya Cheng RN [employer] 08-19-2020 15:49-0500 Body surface area Derived from formula 1.79 m2 Supriya Cheng RN [employer], [employer]. 08-19-2020 15:49-0500 Body temperature 99 [degF] Supriya Cheng RN [employer].; OTOY. Comment on above: Method: Tympanic 08-19-2020 15:49-0500 Body weight 67.13 kg Supriya Cheng RN [employer] 08-19-2020 15:49-0500 Diastolic blood pressure 75 mm[Hg] Supriya Cheng RN [employer].; [facility], [employer]. Comment on above: Patient Position: Sitting; Cuff Location : Left Arm; Cuff Size: Standard 08-19-2020 15:49-0500 Heart rate 80 /min Supriya Cheng RN [facility], [facility].; [facility], [employer]. Comment on above: Pattern: Regular 08-19-2020 15:49-0500 Systolic blood pressure 114 mm[Hg] Supriya Cheng RN [facility].; [facility] [email or web address]. Comment on above: Patient Position: Sitting; Cuff Location : Left Arm; Cuff Size: Standard 03-06-2020 11:14-0400 Body height 171.45 cm Ann Bryant LPN [facility], [facility].; [facility], [facility]. 03-06-2020 11:14-0400 Body mass index (BMI) [Ratio] 21.76 kg/m2 Ann Bryant LPN [facility], [facility].; [facility], [facility]. 03-06-2020 11:14-0400 Body surface area Derived from formula 1.75 m2 Ann Bryant LPN [facility], [facility].; [facility], [employer]. 03-06-2020 11:14-0400 Body temperature 99.1 [degF] Ann Bryant LPN [facility], [facility].; [employer], [employer]. Comment on above: Method: Tympanic 03-06-2020 11:14-0400 Body weight 63.96 kg Ann Bryant LPN [facility], [facility].; [facility], Inc[employer] 03-06-2020 11:14-0400 Diastolic blood pressure 72 mm[Hg] Ann Bryant LPN [facility], [facility].; [employer], [employer]. Comment on above: Patient Position: Sitting; Cuff Location : Left Arm; Cuff Size: Standard 03-06-2020 11:14-0400 Heart rate 75 /min Ann Bryant LPN [facility], [facility].; [employer], [employer]. Comment on above: Pattern: Regular 03-06-2020 11:14-0400 Systolic blood pressure 108 mm[Hg] Ann Bryant LPN [facility], [facility].; [employer], [employer]. Comment on above: Patient Position: Sitting; Cuff Location : Left Arm; Cuff Size: Standard 06-13-2019 13:06-0500 Body height 171.45 cm Neilee L Vess FITNESS TEACHER [employer] 06-13-2019 13:06-0500 Body mass index (BMI) [Ratio] 21.6 kg/m2 Neilee L Vess [employer] TEACHER [employer] 06-13-2019 13:06-0500 Body surface area Derived from formula 1.75 m2 Neilee L Vess FITNESS TEACHER [employer]. 06-13-2019 13:06-0500 Body temperature 98 [degF] Neilee L Vess FITNESS TEACHER [employer], [employer].; OTOY. Comment on above: Method: Tympanic 06-13-2019 13:06-0500 Body weight 63.5 kg [place].deilee L Vess FITNESS TEACHER [employer] OTOY. 06-13-2019 13:06-0500 Diastolic blood pressure 70 mm[Hg] Neilee L Vess FITNESS TEACHER [employer] OTOY. Comment on above: Patient Position: Sitting; Cuff Location : Left Arm; Cuff Size: Standard 06-13-2019 13:06-0500 Heart rate 82 /min Neilee L Vess FITNESS TEACHER [employer] OTOY. Comment on above: Pattern: Regular 06-13-2019 13:06-0500 Systolic blood pressure 113 mm[Hg] Neilee L Vess FITNESS TEACHER [employer] OTOY. Comment on above: Patient Position: Sitting; Cuff Location : Left Arm; Cuff Size: Standard 05-17-2019 09:10-0400 Body height 171.45 cm Jessica Young RN [employer], [employer].; O[employer]Y. 05-17-2019 09:10-0400 Body mass index (BMI) [Ratio] 21.6 kg/m2 Jessica Young RN [employer], [employer].; OTOY. 05-17-2019 09:10-0400 Body surface area Derived from formula 1.75 m2 Jessica Young RN [facility]. 05-17-2019 09:100400 Body temperature 99.4 [degF] Jessica Young RN [facility].; OTOY. Comment on above: Method: Tympanic 05-17-2019 09:10040 Body weight 63.5 kg Jessica Young RN [facility], [employer] 05-17-2019 09:100400 Diastolic blood pressure 68 mm[Hg] Jessica Young RN [employer].; OTOY. Comment on above: Patient Position: Sitting; Cuff Location : Left Arm; Cuff Size: Standard 05-17-2019 09:100400 Heart rate 80 /min Jessica Young RN [facility], [employer].; OTOY. Comment on above: Pattern: Regular 05-17-2019 09:100400 Systolic blood pressure 114 mm[Hg] Jessica Young RN [employer].; OTOY. Comment on above: Patient Position: Sitting; Cuff Location : Left Arm; Cuff Size: Standard 04-27-2019 08:21-0400 Body height 171.45 cm Anabel Lowry LPN [facility], [employer].; OTOY. 04-27-2019 08:21-0400 Body mass index (BMI) [Ratio] 21.6 kg/m2 Anabel Lowry LPN [employer] OTOY. 04-27-2019 08:21-0400 Body surface area Derived from formula 1.75 m2 Anabel Lowry LPN [employer].; [employer]TOY. 04-27-2019 08:21-0400 Body weight 63.5 kg Anabel Lowry LPN [employer] 04-25-2019 08:42-0400 Body height 171.45 cm Juliet Patten LPN [employer].; OTOY. 04-25-2019 08:42-0400 Body mass index (BMI) [Ratio] 21.6 kg/m2 Juliet Collier [facility], Inc.; OTOY. 04-25-2019 08:42-0400 Body surface area Derived from formula 1.75 m2 Juliet Collier [facility], Inc.; [employer] 04-25-2019 08:42-0400 Body weight 63.5 kg Juliet Collier [facility].; OTOY. 04-25-2019 08:42-0400 Diastolic blood pressure 76 mm[Hg] Juliet Collier [facility] System[facility].; OTOY. Comment on above: Patient Position: Sitting; Cuff Location : Right Arm; Cuff Size: Standard 04-25-2019 08:42-0400 Heart rate 77 /min Juliet Collier [facility]Micro[facility].; OTOY. Comment on above: Pattern: Regular 04-25-2019 08:42-0400 Systolic blood pressure 119 mm[Hg] Juliet Collier [facility] Hospital[facility].; OTOY. Comment on above: Patient Position: Sitting; Cuff Location : Right Arm; Cuff Size: Standard 08-05-2017 21:04-0500 Body temperature 97.8 [degF] Alta Zapata MD Work Phone: OTOY.; OTOY. 08-05-2017 21:04-0500 Body weight 68.49 kg Atla Zapata MD Work Phone: [employer].; OTOY. 08-05-2017 21:04-0500 Diastolic blood pressure 76 mm[Hg] Alta Zapata MD Work Phone: [employer].; OTOY. Comment on above: Patient Position: Sitting; Cuff Location : Left Arm; Cuff Size: Standard 08-05-2017 21:04-0500 Heart rate 84 /min Alta Zapata MD Work Phone: CSR; OTOY. Comment on above: Pattern: Regular 08-05-2017 21:04-0500 Systolic blood pressure 121 mm[Hg] Alta Zapata MD Work Phone: [employer]; OTOY. Comment on above: Patient Position: Sitting; Cuff Location : Left Arm; Cuff Size: Standard 06-16-2017 16:04-0500 Body height 171.63 cm Naheed Taina FITNESS TEACHER Work Phone: CSR; OTOY. 06-16-2017 16:04-0500 Body mass index (BMI) [Ratio] 22.33 kg/m2 Naheed Taina FITNESS TEACHER Work Phone: CSR; OTOY. 06-16-2017 16:04-0500 Body surface area Derived from formula 1.77 m2 Naheed Taina FITNESS TEACHER Work Phone: CSR; OTOY. 06-16-2017 16:04-0500 Body weight 65.77 kg Naheed Taina FITNESS TEACHER Work Phone: CSR; OTOY. 06-16-2017 16:04-0500 Diastolic blood pressure 76 mm[Hg] Naheed Taina FITNESS TEACHER Work Phone: CSR; OTOY. Comment on above: Patient Position: Sitting; Cuff Location : Left Arm; Cuff Size: Standard 06-16-2017 16:04-0500 Heart rate 86 /min Naheed Taina FITNESS TEACHER Work Phone: CSR; OTOY. Comment on above: Pattern: Regular 06-16-2017 16:04-0500 Systolic blood pressure 121 mm[Hg] Naheed Taina FITNESS TEACHER Work Phone: CSR; OTOY. Comment on above: Patient Position: Sitting; Cuff Location : Left Arm; Cuff Size: Standard 04-14-2017 16:06-0400 Body height 171.63 cm Naheed Taina FITNESS TEACHER Work Phone: OTOY.; OTOY. 04-14-2017 16:06-0400 Body mass index (BMI) [Ratio] 21.1 kg/m2 Naheed Taina FITNESS TEACHER Work Phone: [employer]TO[employer].; [employer] 04-14-2017 16:06-0400 Body surface area Derived from formula 1.73 m2 Naheed Taina FITNESS TEACHER Work Phone: OTOY.; OTOY. 04-14-2017 16:06-0400 Body weight 62.14 kg Naheed Taina FITNESS TEACHER Work Phone: OTOY.; [employer] 02-17-2017 11:46-0400 Body height 171.63 cm Naheed Taina FITNESS TEACHER Work Phone: [employer].; [employer] 02-17-2017 11:46-0400 Body mass index (BMI) [Ratio] 21.1 kg/m2 Naheed Taina FITNESS TEACHER Work Phone: OTOY.; [employer] 02-17-2017 11:46-0400 Body surface area Derived from formula 1.73 m2 Naheed Taina FITNESS TEACHER Work Phone: OTOY.; OTOY. 02-17-2017 11:46-0400 Body weight 62.14 kg Naheed Taina FITNESS TEACHER Work Phone: OTOY.; OTOY. 02-17-2017 11:46-0400 Diastolic blood pressure 73 mm[Hg] Naheed Taina FITNESS TEACHER Work Phone: OTOY.; OTOY. Comment on above: Patient Position: Sitting; Cuff Location : Left Arm; Cuff Size: Standard 02-17-2017 11:46-0400 Heart rate 106 /min Naheed Taina FITNESS TEACHER Work Phone: CSR; OTOY. Comment on above: Pattern: Regular 02-17-2017 11:46-0400 Systolic blood pressure 109 mm[Hg] Naheed Her LPN Work Phone: CSR; OTOY. Comment on above: Patient Position: Sitting; Cuff Location : Left Arm; Cuff Size: Standard 12-16-2016 09:37-0400 Body height 171.63 cm Naheed Her LPN Work Phone: CSR; OTOY. 12-16-2016 09:37-0400 Body mass index (BMI) [Ratio] 23.25 kg/m2 Naheed Her LPN Work Phone: CSR; OTOY. 12-16-2016 09:37-0400 Body surface area Derived from formula 1.81 m2 Naheed Her LPN Work Phone: CSR; OTOY. 12-16-2016 09:37-0400 Body temperature 99.6 [degF] Naheed Her LPN Work Phone: CSR; OTOY. Comment on above: Method: Tympanic 12-16-2016 09:37-0400 Body weight 68.49 kg Naheed Her LPN Work Phone: CSR; OTOY. 12-16-2016 09:37-0400 Diastolic blood pressure 71 mm[Hg] Naheed Her LPN Work Phone: CSR; OTOY. Comment on above: Patient Position: Sitting; Cuff Location : Right Arm; Cuff Size: Standard 12-16-2016 09:37-0400 Heart rate 101 /min Naheed Her LPN Work Phone: CSR; OTOY. Comment on above: Pattern: Regular 12-16-2016 09:37-0400 Systolic blood pressure 126 mm[Hg] Naheed Taina FITNESS TEACHER Work Phone: OTOY.; OTOY. Comment on above: Patient Position: Sitting; Cuff Location : Right Arm; Cuff Size: Standard 12-09-2016 09:45-0400 Body weight 75.3 kg Naheed Taina FITNESS TEACHER Work Phone: OTOY.; OTOY. 12-09-2016 09:45-0400 Diastolic blood pressure 73 mm[Hg] Naheed Taina FITNESS TEACHER Work Phone: CSR; OTOY. Comment on above: Patient Position: Sitting; Cuff Location : Left Arm; Cuff Size: Standard 12-09-2016 09:45-0400 Heart rate 87 /min Naheed Taina FITNESS TEACHER Work Phone: CSR; OTOY. Comment on above: Pattern: Regular 12-09-2016 09:45-0400 Systolic blood pressure 120 mm[Hg] Naheed Taina FITNESS TEACHER Work Phone: CSR; OTOY. Comment on above: Patient Position: Sitting; Cuff Location : Left Arm; Cuff Size: Standard 12-03-2016 16:46-0400 Body weight 76.2 kg Neilee L Vess FITNESS TEACHER OTOY.; OTOY. 12-03-2016 16:46-0400 Diastolic blood pressure 72 mm[Hg] Neilee L Vess FITNESS TEACHER OTOY.; OTOY. Comment on above: Patient Position: Sitting; Cuff Location : Right Arm; Cuff Size: Standard 12-03-2016 16:46-0400 Heart rate 85 /min Neilee L Vess FITNESS TEACHER OTOY.; OTOY. Comment on above: Pattern: Regular 12-03-2016 16:46-0400 Systolic blood pressure 120 mm[Hg] Neilee L Vess FITNESS TEACHER [employer].; OTOY. Comment on above: Patient Position: Sitting; Cuff Location : Right Arm; Cuff Size: Standard 11-26-2016 16:050400 Body weight 75.3 kg Neilee L Vess FITNESS TEACHER O[employer]Y.; OTOY. 11-26-2016 16:05-0400 Diastolic blood pressure 74 mm[Hg] Neilee L Vess FITNESS TEACHER [employer] OTOY. Comment on above: Patient Position: Sitting; Cuff Location : Left Arm; Cuff Size: Standard 11-26-2016 16:05-0400 Heart rate 91 /min Neilee L Vess FITNESS TEACHER [employer].; OTOY. Comment on above: Pattern: Regular 11-26-2016 16:05-0400 Systolic blood pressure 119 mm[Hg] Neilee L Vess FITNESS TEACHER OTOY.; OTOY. Comment on above: Patient Position: Sitting; Cuff Location : Left Arm; Cuff Size: Standard 11-18-2016 16:31-0400 Body weight 74.39 kg Naheed Taina FITNESS TEACHER Work Phone: OTOY.; OTOY. 11-18-2016 16:31-0400 Diastolic blood pressure 72 mm[Hg] Naheed Taina FITNESS TEACHER Work Phone: OTOY.; OTOY. Comment on above: Patient Position: Sitting; Cuff Location : Left Arm; Cuff Size: Standard 11-18-2016 16:31-0400 Heart rate 83 /min Naheed Taina FITNESS TEACHER Work Phone: OTOY.; OTOY. Comment on above: Pattern: Regular 11-18-2016 16:31-0400 Systolic blood pressure 114 mm[Hg] Naheed Taina FITNESS TEACHER Work Phone: OTOY.; OTOY. Comment on above: Patient Position: Sitting; Cuff Location : Left Arm; Cuff Size: Standard 11-12-2016 16:49-0400 Body weight 74.39 kg Neilee L Vess FITNESS TEACHER OTOY.; OTOY. 11-12-2016 16:49-0400 Diastolic blood pressure 62 mm[Hg] Neilee L Vess FITNESS TEACHER [employer]TOY.; OTOY. Comment on above: Patient Position: Sitting; Cuff Location : Right Arm; Cuff Size: Standard 11-12-2016 16:49-0400 Heart rate 89 /min Neilee L Vess FITNESS TEACHER OTOY.; OTOY. Comment on above: Pattern: Regular 11-12-2016 16:49-0400 Systolic blood pressure 111 mm[Hg] Neilee L Vess FITNESS TEACHER OTOY.; OTOY. Comment on above: Patient Position: Sitting; Cuff Location : Right Arm; Cuff Size: Standard 11-05-2016 16:38-0400 Body weight 73.48 kg Neilee L Vess FITNESS TEACHER OTOY.; OTOY. 11-05-2016 16:38-0400 Diastolic blood pressure 71 mm[Hg] Neilee L Vess FITNESS TEACHER OTOY.; OTOY. Comment on above: Patient Position: Sitting; Cuff Location : Left Arm; Cuff Size: Standard 11-05-2016 16:38-0400 Heart rate 95 /min Neilee L Vess FITNESS TEACHER O[employer]Y.; OTOY. Comment on above: Pattern: Regular 11-05-2016 16:38-0400 Systolic blood pressure 109 mm[Hg] Neilee L Vess FITNESS TEACHER OTOY.; OTOY. Comment on above: Patient Position: Sitting; Cuff Location : Left Arm; Cuff Size: Standard 09-18-2016 16:12-0500 Body weight 71.22 kg Naheed Her FITNESS TEACHER Work Phone: OTOY.; OTOY. 09-18-2016 16:12-0500 Diastolic blood pressure 76 mm[Hg] Naheed Taina FITNESS TEACHER Work Phone: OTOY.; OTOY. Comment on above: Patient Position: Sitting; Cuff Location : Left Arm; Cuff Size: Standard 09-18-2016 16:12-0500 Heart rate 96 /min Naheed Taina FITNESS TEACHER Work Phone: OTOY.; OTOY. Comment on above: Pattern: Regular 09-18-2016 16:12-0500 Systolic blood pressure 118 mm[Hg] Naheed Taina FITNESS TEACHER Work Phone: OTOY.; OTOY. Comment on above: Patient Position: Sitting; Cuff Location : Left Arm; Cuff Size: Standard 08-20-2016 16:08-0500 Body weight 68.04 kg Juana Greene RN Work Phone: OTOY.; OTOY. 08-20-2016 16:08-0500 Diastolic blood pressure 75 mm[Hg] Juana Greene RN Work Phone: OTOY.; OTOY. Comment on above: Patient Position: Sitting; Cuff Location : Right Arm; Cuff Size: Standard 08-20-2016 16:08-0500 Heart rate 103 /min Juana Greene RN Work Phone: OTOY.; OTOY. Comment on above: Pattern: Regular 08-20-2016 16:08-0500 Systolic blood pressure 119 mm[Hg] Juana Greene RN Work Phone: OTOY.; OTOY. Comment on above: Patient Position: Sitting; Cuff Location : Right Arm; Cuff Size: Standard 08-10-2016 13:56-0500 Body weight 68.04 kg Naheedtanner Koenigy FITNESS TEACHER Work Phone: OTOY.; OTOY. 08-10-2016 13:56-0500 Diastolic blood pressure 70 mm[Hg] Naheed Taina FITNESS TEACHER Work Phone: OTOY.; OTOY. Comment on above: Patient Position: Sitting; Cuff Location : Left Arm; Cuff Size: Standard 08-10-2016 13:56-0500 Heart rate 91 /min Naheed Taina FITNESS TEACHER Work Phone: OTOY.; OTOY. Comment on above: Pattern: Regular 08-10-2016 13:56-0500 Systolic blood pressure 120 mm[Hg] Naheed Taina FITNESS TEACHER Work Phone: OTOY.; OTOY. Comment on above: Patient Position: Sitting; Cuff Location : Left Arm; Cuff Size: Standard 07-15-2016 16:07-0500 Body weight 67.13 kg Naheed Taina FITNESS TEACHER Work Phone: OTOY.; OTOY. 07-15-2016 16:07-0500 Diastolic blood pressure 71 mm[Hg] Naheed Taina FITNESS TEACHER Work Phone: OTOY.; OTOY. Comment on above: Patient Position: Sitting; Cuff Location : Left Arm; Cuff Size: Standard 07-15-2016 16:07-0500 Heart rate 83 /min Naheed Taina FITNESS TEACHER Work Phone: OTOY.; OTOY. Comment on above: Pattern: Regular 07-15-2016 16:07-0500 Systolic blood pressure 112 mm[Hg] Naheed Taina FITNESS TEACHER Work Phone: OTOY.; OTOY. Comment on above: Patient Position: Sitting; Cuff Location : Left Arm; Cuff Size: Standard 06-10-2016 13:12-0500 Body weight 65.32 kg Naheed Taina FITNESS TEACHER Work Phone: OTOY.; OTOY. 06-10-2016 13:12-0500 Diastolic blood pressure 69 mm[Hg] Naheed Taina FITNESS TEACHER Work Phone: OTOY.; OTOY. Comment on above: Patient Position: Sitting; Cuff Location : Left Arm; Cuff Size: Standard 06-10-2016 13:12-0500 Heart rate 86 /min Naheed Taina FITNESS TEACHER Work Phone: OTOY.; [employer]. Comment on above: Pattern: Regular 06-10-2016 13:12-0500 Systolic blood pressure 113 mm[Hg] Naheed Her FITNESS TEACHER Work Phone: [employer].; OTOY. Comment on above: Patient Position: Sitting; Cuff Location : Left Arm; Cuff Size: Standard 05-12-2016 09:41-0400 Body weight 65.32 kg Neilee L Vess FITNESS TEACHER [facility].; [employer]Y. 05-12-2016 09:41-0400 Diastolic blood pressure 75 mm[Hg] Neilee L Vess FITNESS TEACHER [employer].; OTOY. Comment on above: Patient Position: Sitting; Cuff Location : Right Arm; Cuff Size: Standard 05-12-2016 09:41-0400 Heart rate 104 /min Neilee L Vess FITNESS TEACHER [employer].; OTOY. Comment on above: Pattern: Regular 05-12-2016 09:41-0400 Systolic blood pressure 120 mm[Hg] Neilee L Vess FITNESS TEACHER [employer].; OTOY. Comment on above: Patient Position: Sitting; Cuff Location : Right Arm; Cuff Size: Standard 05-01-2016 15:37-0400 Body height 171.63 cm Naheed Taina FITNESS TEACHER Work Phone: [employer].; O[employer]Y. 05-01-2016 15:37-0400 Body mass index (BMI) [Ratio] 21.87 kg/m2 sli.do FITNESS TEACHER Work Phone: [employer].; [employer]TOY. 05-01-2016 15:37-0400 Body surface area Derived from formula 1.76 m2 sli.do FITNESS TEACHER Work Phone: [employer].; [employer]Y. 05-01-2016 15:37-0400 Body weight 64.41 kg sli.do FITNESS TEACHER Work Phone: [employer].; [employer]Y. 05-01-2016 15:37-0400 Diastolic blood pressure 82 mm[Hg] Naheed Her FITNESS TEACHER Work Phone: [facility].; [employer]Y. Comment on above: Patient Position: Sitting; Cuff Location : Left Arm; Cuff Size: Standard 05-01-2016 15:37-0400 Heart rate 102 /min Naheed Taina FITNESS TEACHER Work Phone: [employer].; OTOY. Comment on above: Pattern: Regular 05-01-2016 15:37-0400 Systolic blood pressure 127 mm[Hg] Naheed Taina FITNESS TEACHER Work Phone: [facility].; OTOY. Comment on above: Patient Position: Sitting; Cuff Location : Left Arm; Cuff Size: Standard 04-04-2015 11:29-0400 Body height 171.63 cm Jessica Young RN [facility].; OTOY. 04-04-2015 11:29-0400 Body mass index (BMI) [Ratio] 21.25 kg/m2 Jessica Young RN [facility].; O[employer]Y. 04-04-2015 11:29-0400 Body surface area Derived from formula 1.74 m2 Jessica Young RN [facility].; OTOY. 04-04-2015 11:29-0400 Body weight 62.6 kg Jessica Young RN [facility].; [employer]. 04-04-2015 11:29-0400 Diastolic blood pressure 78 mm[Hg] Jessica Young RN [facility].; OTOY. Comment on above: Patient Position: Sitting; Cuff Location : Left Arm; Cuff Size: Standard 04-04-2015 11:29-0400 Systolic blood pressure 116 mm[Hg] Jessica Young RN [facility].; OTOY. Comment on above: Patient Position: Sitting; Cuff Location : Left Arm; Cuff Size: Standard 03-11-2015 14:15-0400 Body height 171.45 cm Jessica Young RN [facility].; OTOY. 03-11-2015 14:15-0400 Body mass index (BMI) [Ratio] 21.29 kg/m2 eJssica Young RN [facility].; [facility]. 03-11-2015 14:15-0400 Body surface area Derived from formula 1.74 m2 Jessica Young RN [facility].; [employer]. 03-11-2015 14:15-0400 Body temperature 99.1 [degF] Jessica Young RN [facility].; OTOY. Comment on above: Method: Tympanic 03-11-2015 14:15-0400 Body weight 62.6 kg Jessica Young RN [facility].; OTOY. 03-11-2015 14:15-0400 Diastolic blood pressure 80 mm[Hg] Jessica Young RN [facility].; [employer]. Comment on above: Patient Position: Sitting; Cuff Location : Left Arm; Cuff Size: Standard 03-11-2015 14:15-0400 Heart rate 73 /min Jessica Young RN [facility].; OTOY. Comment on above: Pattern: Regular 03-11-2015 14:15-0400 Systolic blood pressure 126 mm[Hg] Jessica Young RN [facility].; OTOY. Comment on above: Patient Position: Sitting; Cuff Location : Left Arm; Cuff Size: Standard 02-08-2014 10:030400 Body height 146.05 cm Jessica Young RN [facility].; [employer]. 02-08-2014 10:03-0400 Body mass index (BMI) [Ratio] 29.24 kg/m2 Jessica Young RN [facility].; [employer]. 02-08-2014 10:03-0400 Body surface area Derived from formula 1.54 m2 Jessica Young RN [facility].; [employer]. 02-08-2014 10:03-0400 Body temperature 99.6 [degF] [facility].; [employer]. Comment on above: Method: Tympanic 02-08-2014 10:030400 Body weight 62.37 kg Jessica Young RN [facility].; [employer]. 02-08-2014 10:03-0400 Diastolic blood pressure 69 mm[Hg] Jessica Young RN [facility].; [facility]. Comment on above: Patient Position: Sitting; Cuff Location : Left Arm; Cuff Size: Standard 02-08-2014 10:03-0400 Heart rate 85 /min Jessica [facility].; [employer]. Comment on above: Pattern: Regular 02-08-2014 10:03-0400 Systolic blood pressure 108 mm[Hg] Jessica Young RN [facility] [email or web address]. Comment on above: Patient Position: Sitting; Cuff Location : Left Arm; Cuff Size: Standard Encounters Encounter Date Encounter Type Care Provider Facility [facility]: [facility] [facility] Start: 02-28-2025 Encounter for other preprocedural examination [facility] Start: 02-14-2025 End: 02-14-2025 Telephone encounter Bobbi De La Paz MD Work Phone: [facility] Comment on above: Post Op Start: 02-13-2025 End: 02-13-2025 Telemedicine consultation with patient Bobbi De La Paz MD Work Phone: [facility] Start: 02-13-2025 End: 02-13-2025 ambulatory Bobbi De La Paz MD Work Phone: [facility] Comment on above: Malignant neoplasm o f thyroid gland (HCC) Start: 01-30-2025 End: 01-30-2025 Telephone encounter Jeyson Bustamante MD Work Phone: Endocrine Surgery Comment on above: Appointment (Left a message for patient to call [phone] to schedule a Consult with a Endo Med for MI Treatment for Thyroid Cancer diagnosis and sent My Chart message) Start: 01-29-2025 End: 01-29-2025 Admission to same day surgery center Jayla Carr MD Work Phone: Endocrine Surgery Comment on above: Papillary carcinoma of thyroid (HCC) (Primary Dx) Malignant neoplasm o f thyroid gland (HCC) (Primary Dx) Start: 01-29-2025 End: 01-29-2025 Telemedicine consultation with patient Jayla Carr MD Work Phone: Endocrine Surgery Start: 01-29-2025 End: 01-29-2025 ambulatory JAYLA CARR Facility:[facility] [place] Start: 01-17-2025 End: 01-17-2025 Telephone encounter Jeyson Bustamante MD Work Phone: Endocrine Surgery Start: 01-16-2025 End: 01-17-2025 Admission to same day surgery center Jeyson Bustamante MD Work Phone: Endocrine Surgery Comment on above: Work Release Start: 01-16-2025 End: 01-17-2025 ambulatory Jeyson Bustamante MD Work Phone: Endocrine Surgery Start: 01-11-2025 End: 01-12-2025 ambulatory JEYSON BUSTAMANTE Facility:[facility] Start: 01-02-2025 End: 01-02-2025 Admission to establishment [facility]est[facility] Start: 01-02-2025 End: 01-02-2025 Anesthesia consultation [facility] Pre Anesthesia Comment on above: Esophagitis (Primary Dx); Papillary carcinoma of thyroid (HCC); PONV (postoperative nausea and vomiting); Anxiety; History of lobectomy of thyroid Start: 01-02-2025 End: 01-02-2025 ambulatory JEYSON BUSTAMANTE Facility:[facility] [place] Start: 12-06-2024 End: 12-13-2024 Orders Only Jeyson Bustamante MD Work Phone: Endocrine Surgery Comment on above: Malignant neoplasm o f thyroid gland (HCC) (Primary Dx) Start: 11-22-2024 End: 11-22-2024 Telephone encounter Jeyson Bustamante MD Work Phone: Endocrine Surgery Comment on above: Consult (FACE SHEET) Start: 10-26-2024 End: 10-26-2024 Telephone encounter Jeyson Bustamante MD Work Phone: Endocrine Surgery Comment on above: Outside Referral Req uests Start: 10-26-2024 ambulatory David Cano Facility: [facility] Start: 10-26-2024 Non-patient / Non-visit Dr. David Cano MD -[facility] Start: 10-26-2024 End: 10-26-2024 Admission to same day surgery center Dr. David Cano MD -Endoscopy Work Phone: Start: 10-26-2024 End: 10-26-2024 ambulatory Alanis Batista PA Work Phone: [facility] Work Phone: Start: 10-20-2024 End: 10-20-2024 ambulatory Alanis Batista PA Work Phone: [facility] Work Phone: Start: 10-20-2024 End: 10-20-[address] David Cano MD -Ultrasound, [facility] Work Phone: Start: 10-20-2024 End: 10-20-2024 ambulatory David Cano Facility:[facility] Start: 10-04-2024 End: 10-04-2024 ambulatory Alanis Batista PA Work Phone: [facility] Work Phone: Start: 10-04-2024 End: 10-04-[address] David Cano MD -Laboratory, Specimen Work Phone: Start: 10-04-2024 End: 10-04-[address] David Cano MD -[facility] Work Phone: Start: 10-04-2024 End: 10-04-2024 ambulatory Alanis Batista PA Facility:[facility] Start: 10-04-2024 Non-patient / Non-visit Dr. Ramsey Sinclair MD -[facility] Start: 10-04-2024 End: 10-04-2024 ambulatory David Cano Facility:[facility] Start: 09-06-2024 End: 09-06-2024 Orders Alanisgolden Batista PA-C [facility] Phone[facility] Start: 09-04-2024 End: 09-04-2024 Patient encounter procedure Alanis BARNETT -Ultrasound, [facility] Work Phone: Start: 09-04-2024 End: 09-04-2024 ambulatory Alanis BARNETT Facility:[facility] Start: 08-31-2024 End: 08-31-2024 Orders Alanis Batista PA-C [facility] Start: 08-30-2024 End: 08-30-2024 Patient encounter procedure Alanis Batista PA-C [facility] Start: 08-30-2024 ambulatory [facility] Start: 08-30-2024 Patient encounter status Julite Patten LPN [facility] Start: 08-30-2024 Review Alanis Batista PA-C Work Phone: [facility] [email or web address] Start: 01-19-2024 End: 01-19-2024 Medication Alanisgolden Batista PA-C Work Phone: [facility] Start: 07-14-2023 End: 07-14-2023 Patient encounter procedure Alanis Batista PA-C Work Phone: [facility] Start: 05-13-2023 Non-patient / Non-visit PA Alanis Batista PA Work Phone: [facility] Start: 05-13-2023 End: 05-13-2023 Admission to same day surgery center PA Alanis BARNETT Work Phone: [facility]-Endoscopy Work Phone: Start: 05-13-2023 End: 05-13-2023 ambulatory PA Alanis BARNETT Work Phone: [facility] Work Phone: Start: 04-21-2023 End: 04-21-2023 Patient encounter procedure PA Alanis Batista PA Work Phone: [facility]-Ultrasound, [facility] Work Phone: Start: 11-02-2022 End: 11-02-2022 Office outpatient visit 25 minutes Alanis Batista PA-C Work Phone: [facility]. Start: 05-20-2022 End: 05-20-2022 Medication Alanis Batista PA-C Work Phone: [facility]. Start: 04-28-2022 End: 04-28-2022 Office outpatient visit 15 minutes Alanis Batista PA-C Work Phone: [facility]. Start: 12-10-2021 End: 12-10-2021 Historical Summary Alanis Paceer PA-C Work Phone: [facility]. Start: 11-25-2021 End: 11-25-2021 Office outpatient visit 15 minutes Alanis Batista PA-C Work Phone: [facility]. Start: 09-01-2021 End: 09-01-2021 Patient encounter procedure Alanis Paceer PA-C Work Phone: [facility]. Start: 06-17-2021 End: 06-17-2021 Medication Alanis Batista PA-C Work Phone: [facility]. Start: 06-17-2021 End: 06-17-2021 Patient encounter status Alanis Batista PA-C Work Phone: [facility].; OTOY. Start: 05-21-2021 End: 05-21-2021 Orders Alanis Batista PA-C Work Phone: [facility]. Start: 05-20-2021 End: 05-20-2021 ambulatory ALANIS J [facility] Start: 05-12-2021 End: 05-12-2021 Patient encounter procedure Alanis ERNSTC Work Phone: [facility]. Start: 05-12-2021 End: 05-12-2021 Patient encounter status Alanis ERNSTC Work Phone: [facility]TO[facility].; OTOY. Start: 03-03-2021 End: 03-03-2021 Medication Alanis Batista PA-C Work Phone: [facility]. Start: 12-06-2020 End: 12-06-2020 ambulatory [facility] Start: 12-05-2020 End: 12-05-2020 Patient encounter procedure Alanis ERNSTC Work Phone: [facility]. Start: 11-06-2020 End: 11-06-2020 Telephone follow-up Alanis Batista PA-C Work Phone: [facility]. Start: 11-01-2020 End: 11-01-2020 Emergency department patient visit [facility] Start: 09-19-2020 End: 09-19-2020 ambulatory [facility] Start: 09-19-2020 End: 09-19-2020 Patient encounter procedure Alanis ERNSTC Work Phone: [facility]. Start: 08-19-2020 End: 08-19-2020 Office outpatient visit 15 minutes Alanis ERNSTC Work Phone: CSR Start: 03-06-2020 End: 03-06-2020 Patient encounter procedure Alanis BARNETT-C Work Phone: [facility]SR Start: 06-13-2019 End: 06-13-2019 Patient encounter procedure Alanis Batista PA-C Work Phone: [facility]SR Start: 05-17-2019 End: 05-17-2019 Patient encounter procedure Alanis Batista PA-C Work Phone: CSR Start: 04-27-2019 End: 04-27-2019 Office outpatient visit 10 minutes Alanis Batista PA-C Work Phone: [facility]. Start: 04-25-2019 End: 04-25-2019 Patient encounter procedure Alanis Batista PA-C Work Phone: [facility]. Start: 04-17-2019 End: 04-17-2019 Orders Alanis ERNSTC Work Phone: [facility]. Start: 12-05-2018 End: 12-05-2018 Telephone follow-up Alanis Batista PA-C Work Phone: CSR Start: 06-15-2018 End: 06-15-2018 Nursing evaluation of patient and report Alanis Batista PA-C Work Phone: [facility]. Start: 08-05-2017 End: 08-15-2017 Patient encounter procedure Alanis Batista PA-C Work Phone: CSR Start: 06-16-2017 End: 06-16-2017 Patient encounter procedure Alanis Batista PA-C Work Phone: CSR Start: 04-14-2017 End: 04-14-2017 Procedure Alanis Batista PA-C Work Phone: [facility]. Start: 02-17-2017 End: 02-17-2017 Patient encounter procedure Alanis ERNSTC Work Phone: [facility]. Start: 12-16-2016 End: 12-16-2016 Patient encounter procedure Alanis ERNSTC Work Phone: CSR Start: 12-15-2016 End: 12-16-2016 Orders Alanis BARNETT-C Work Phone: [facility]. Start: 12-09-2016 End: 12-09-2016 Patient encounter procedure Alanis Paceer PA-C Work Phone: [facility]. Start: 12-03-2016 End: 12-04-2016 Patient encounter procedure Alanisgolden Batista PA-C Work Phone: [facility]. Start: 11-26-2016 End: 11-26-2016 Patient encounter procedure Alanis Paceer PA-C Work Phone: [facility]. Start: 11-18-2016 End: 11-18-2016 Patient encounter procedure Alanisgolden Paceer PA-C Work Phone: [facility]. Start: 11-12-2016 End: 11-12-2016 Patient encounter procedure Alanisgolden Paceer PA-C Work Phone: [facility]. Start: 11-05-2016 End: 11-05-2016 Patient encounter procedure Alanisgolden Paceer PA-C Work Phone: [facility]. Start: 10-22-2016 End: 10-22-2016 Patient encounter procedure Alanis Paceer PA-C Work Phone: [facility]. Start: 09-18-2016 End: 09-18-2016 Patient encounter procedure Alanis Paceer PA-C Work Phone: [facility]. Start: 08-20-2016 End: 08-20-2016 Patient encounter procedure Alanis Paceer PA-C Work Phone: [facility]. Start: 08-10-2016 End: 08-10-2016 Patient encounter procedure Alanis Batista PA-C Work Phone: [facility]. Start: 08-10-2016 End: 08-10-2016 Orders Alanis Batista PA-C Work Phone: [facility]. Start: 07-15-2016 End: 07-15-2016 Patient encounter procedure Alanis Batista PA-C Work Phone: [facility]. Start: 06-10-2016 End: 06-10-2016 Patient encounter procedure Alanis Batista PA-C Work Phone: [facility] Start: 05-12-2016 End: 05-12-2016 Patient encounter procedure Alanis Batista PA-C Work Phone: [facility]. Start: 05-01-2016 End: 05-01-2016 Patient encounter procedure Alanis Batista PA-C Work Phone: [facility] Start: 04-04-2015 End: 04-04-2015 Patient encounter procedure Alanis Batista PA-C Work Phone: [facility]. Start: 03-11-2015 End: 03-11-2015 Manual pelvic examination Alanis Batista PA-C Work Phone: OTOY.; OTOY. Start: 03-11-2015 End: 03-11-2015 Patient encounter procedure Alanis BARNETT-C Work Phone: [facility]. Start: 03-09-2015 End: 03-09-2015 Historical Summary Alanis BARNETT-C Work Phone: [facility]. Start: 02-08-2014 End: 02-08-2014 Manual pelvic examination Alanis Batista PA-C Work Phone: [facility]. Start: 02-08-2014 End: 02-08-2014 Patient encounter procedure Alanis Batista PA-C Work Phone: [facility]. Patient encounter procedure Alanis Batista PA-C Work Phone: OTOY.; OTOY. Patient encounter status Juliet Patten LPN [facility] [employer], [employer]. Patient encounter status Juliet Patten LPN [facility]Y. Procedures Date Procedure Procedure Detail Performing Clinician Start: 12-06-2024 Us soft tissue head & neck real time imge docm Jeyson Bustamante MD Work Phone: Start: 10-26-2024 Esophagogastroduodenoscopy Alanis BARNETT Work Phone: Start: 10-20-2024 Ultrasonography of thyroid and parathyroid Alanis BARNETT Work Phone: Start: 09-04-2024 US scan of thyroid Alanis BARNETT Work Phone: Start: 08-31-2024 End: 09-06-2024 Us soft tissue head & neck real time imge docm Alanis Batista PA-C Work Phone: Comment on above: Please call pt to schedule appt. Start: 08-30-2024 End: 08-30-2024 Depression screening Alanis Paceer PA-C Work Phone: Start: 08-30-2024 End: 08-30-2024 Scr dep neg, no plan reqd Alanis Pace er PA-C Work Phone: Start: 05-13-2023 EGD - PH Probe (Not Applicable) PA Isidra Batista PA Work Phone: Start: 04-21-2023 US scan of thyroid PA Alanis BARNETT Work Phone: Start: 06-23-2021 End: 06-23-2021 Thyroidectomy; Right Alansi Paceer PA-C Work Phone: Comment on above: and isthmusectomy Start: 05-12-2021 End: 05-20-2021 Us soft tissue head & neck real time imge docm Alanis Paceer PA-C Work Phone: Start: 05-12-2021 End: 05-12-2021 Depression screening Alanis Paceer PA-C Work Phone: Start: 05-12-2021 End: 05-12-2021 Microscopic examination of cervical Papanicolaou smear Juliet Patten LPN Comment on above: 02/17/2017 LSIL, 06/16/20174 ASCUS, 2020 HPV neg Start: 05-12-2021 End: 05-12-2021 Scr dep neg, no plan reqd Alanis merchant PA-C Work Phone: Start: 06-15-2018 End: 06-15-2018 Flu immunize order/admin Alta mares MD Work Phone: Start: 06-16-2017 End: 06-16-2017 Body mass index documented Alta larose MD Work Phone: Start: 06-16-2017 End: 06-16-2017 Flu immunize order/admin Alta mares MD Work Phone: Start: 06-16-2017 End: 06-16-2017 Microscopic examination of cervical Papanicolaou smear June Lamas LPN Comment on above: 02/08/17 neg, 02/17/17 LGSIL, 06/16/17 ASCU S, HPVneg Start: 04-14-2017 End: 04-14-2017 Destruction benign lesions up to 14 Alta Zapata MD Work Phone: Start: 12-09-2016 End: 12-09-2016 Ob care antepartum vag dlvr & Alta Zapata MD Work Phone: Start: 12-03-2016 End: 12-04-2016 Ob care antepartum vag dlvr & Alta Zapata MD Work Phone: Start: 11-26-2016 End: 11-26-2016 Ob care antepartum vag dlvr & Alta Zapata MD Work Phone: Start: 11-18-2016 End: 11-18-2016 Ob care antepartum vag dlvr & Alta Zapata MD Work Phone: Start: 11-12-2016 End: 11-12-2016 Ob care antepartum vag dlvr & Alta Zapata MD Work Phone: Start: 11-05-2016 End: 11-05-2016 Ob care antepartum vag dlvr & Alta Zapata MD Work Phone: Start: 10-22-2016 End: 10-22-2016 Ob care antepartum vag dlvr & Alta Zapata MD Work Phone: Start: 09-18-2016 End: 09-18-2016 Ob care antepartum vag dlvr & Alta Zapata MD Work Phone: Start: 08-20-2016 End: 08-20-2016 Us preg uterus real time f/u trnsabdl per fetus Alta Zapata MD Work Phone: Start: 08-20-2016 End: 08-20-2016 Ob care antepartum vag dlvr & Supriya Stratton PA-C Work Phone: Start: 08-10-2016 End: 08-11-2016 Ct limited/localized follow up study Alta Zapata MD Work Phone: Start: 08-10-2016 End: 08-11-2016 Us preg uterus real time w/image dcmtn transvag Alta Zapata MD Work Phone: Start: 08-10-2016 End: 08-10-2016 Ob care antepartum vag dlvr & Alta Zapata MD Work Phone: Start: 07-15-2016 End: 07-15-2016 Ob care antepartum vag dlvr & Alta Zapata MD Work Phone: Start: 06-10-2016 End: 06-10-2016 Ob care antepartum vag dlvr & Alta Zapata MD Work Phone: Start: 05-01-2016 End: 05-01-2016 Ob care antepartum vag dlvr & Alta Zapata MD Work Phone: Start: 05-01-2016 End: 05-01-2016 Us uterus 14 wk transabdl 07/19 gestat Alta Zapata MD Work Phone: Start: 04-04-2015 End: 04-04-2015 Destruction benign lesions up to 14 Supriya Stratton PA-C Work Phone: Start: 03-11-2015 End: 03-11-2015 Destruction benign lesions up to 14 Supriya Anne Chayito PA-C Work Phone: Start: 02-08-2014 End: 02-08-2014 Lab findings surveillance June Winkler Comment on above: 73 Start: 02-08-2014 End: 02-08-2014 Lipid panel June Lamas LPN Comment on above: chol -204 Start: 07-19-2001 End: 07-19-2001 wisdom teeth extraction Alanis Fang Batista PA-C Work Phone: section Alanis Annalisa Pichardo almer PA-C Work Phone: section Juliet zavala LPN H/O: section H/O: Frank Young RN H/O: section H/O: Noelle rooney Batista PA-C Work Phone: H/O: section H/O: Noellejin rooney Batista PA-C Work Phone: H/O: section H/O: Noelle ssa Batista PA-C Work Phone: Plan of Treatment Date Care Activity Detail Author Start: 09-18-2026 Urine microalbumin profile DTa P,Tdap,Td Vaccine (7 - Td or Tdap) [facility] Start: 03-19-2025 Influenza vaccination [facility] Start: 02-13-2025 End: 05-15-2025 Thyroglobulin and Thyrogobulin Ab panel - Serum or Plasma THYROGLOBULIN, SERUM WITH REFLEX TO IA OR LC-MS/MS Lab Routine Malignant neoplasm of thyroid gland (HCC) Expected: 02/13/2025 (Approximate), Expires: 05/15/2025 [facility] Comment on above: Expected: 02/13/2025 (Approximate), Expires: 05/15/2025 Start: 02-13-2025 End: 05-15-2025 Thyrotropin [Units/volume] in Serum or Plasma THYROID STIMULATING HORMONE Lab Routine Malignant neoplasm of thyroid gland (HCC) Expected: 02/13/2025 (Approximate), Expires: 05/15/2025 [facility] Comment on above: Expected: 02/13/2025 (Approximate), Expires: 05/15/2025 Start: 02-13-2025 End: 05-15-2025 Thyroxine (T4) free [Mass/volume] in Serum or Plasma T4 FREE/FREE THYROXINE Lab Routine Malignant neoplasm of thyroid gland (HCC) Expected: 02/13/2025 (Approximate), Expires: 05/15/2025 [facility] Work Phone: Comment on above: Expected: 02/13/2025 (Approximate), Expires: 05/15/2025 Start: 01-29-2025 End: 01-29-2025 Admission to same day surgery center 01/29/2025 9:00 AM EDT [facility] Endocrine Surgery [address] [id number] David Winter MD [address] [place], [place] [id number] post op Endocrine Surgery Comment on above: post op Start: 01-11-2025 End: 01-11-2025 Admission to same day surgery center 01/11/2025 9:30 AM EDT - 01/11/2025 1:00 PM EDT Surgery [facility] [address] [place] [address] Jeyson Bustamante MD [address] [facility] [address] [place] [id number] BIOPSY OR EXCISION LYMPH NODE(S) OPEN, DEEP CERVICAL [facility] Comment on above: BIOPSY OR EXCISION L YMPH NODE(S) OPEN, DEEP CERVICAL Start: 01-11-2025 End: 01-11-2025 Bx/exc lymph node open deep cervical node BIOPSY OR EXCISION LYMPH NODE(S) OPEN, DEEP CERVICAL Papillary carcinoma of thyroid (HCC) 01/11/2025 9:30 AM EDT [facility] Start: 01-11-2025 End: 01-11-2025 Prtl thyroid lobectomy uni w/wo isthmusectomy LOBECTOMY THYROID UNILATERAL; WITH OR WITHOUT ISTHMUSECTOMY Papillary carcinoma of thyroid (HCC) 01/11/2025 9:30 AM EDT MM OR Start: 01-11-2025 Subsequent hospital visit by physician 01/11/2025 9:30 AM EDT Hospital Encounter [facility] [address] [place] [address] Jeyson Bustamante MD [address] [place] [address] Papillary carcinoma of thyroid (HCC) [C73] [facility] Comment on above: Papillary carcinoma of thyroid (HCC) [C73] Start: 01-11-2025 End: 01-11-2025 Admission to same day surgery center 01/11/2025 7:30 AM EDT - 01/11/2025 11:00 AM EDT Surgery [facility] [address] [place] [address] Jeyson Bustamante MD [address] [place], [place] [id number] BIOPSY OR EXCISION LYMPH NODE(S) OPEN, DEEP CERVICAL [facility] Comment on above: BIOPSY OR EXCISION L YMPH NODE(S) OPEN, DEEP CERVICAL Start: 01-11-2025 End: 01-11-2025 Bx/exc lymph node open deep cervical node BIOPSY OR EXCISION LYMPH NODE(S) OPEN, DEEP CERVICAL Papillary carcinoma of thyroid (HCC) 01/11/2025 7:30 AM EDT [facility] OR Start: 01-11-2025 End: 01-11-2025 Prtl thyroid lobectomy uni w/wo isthmusectomy LOBECTOMY THYROID UNILATERAL; WITH OR WITHOUT ISTHMUSECTOMY Papillary carcinoma of thyroid (HCC) 01/11/2025 7:30 AM EDT MM OR Start: 01-11-2025 Subsequent hospital visit by physician 01/11/2025 7:30 AM EDT Hospital Encounter [facility] [address] [place], [place] [id number] Jeyson Bustamante MD [address] [place] [address] Papillary carcinoma of thyroid (HCC) [C73] [facility] Comment on above: Papillary carcinoma of thyroid (HCC) [C73] Start: 11-27-2024 End: 11-27-2024 Patient encounter procedure 11/27/2024 3:00 PM EDT Office Visit Endocrine Surgery [address] [place] [address] Jeyson Bustamante MD [address] [place] [address] INTAKE PENDING-Pls schedule NEW thyroid with Dr. Smith on 11/22/2024 @ 10:30am, pt. aware. Francisco NEGRON Endocrine Surgery Comment on above: INTAKE PENDING-Pls s chedule NEW thyroid with Dr. Smith on 11/22/2024 @ 10:30am, pt. aware. Francisco NEGRON Start: 10-26-2024 Patient discharge [facility] Start: 08-31-2024 Us soft tissue head & neck real time imge docm Thyroid Ultrasound (64717) Start: 31-Aug-2024 Intent Comments: Please call pt to schedule appt. OTOY.; OTOY. Comment on above: Please call pt to sc hedule appt. Start: 08-30-2024 Blood count complete auto&auto difrntl wbc CBC, PLATELETS & AUT DIFF (F) (48951) Start: 30-Aug-2024 14:00-05:00 Request OTOY.; [employer], [employer]. Start: 08-30-2024 Assay of thyroid stimulating hormone tsh TSH (THYROID STIMULATING HORMONE) (11026) Start: 30-Aug-2024 13:55-05:00 Request OTOY.; OTOY. Start: 08-30-2024 Assay of triiodothyr onine t3 free T3 FREE ([id number]) Start: 30-Aug-2024 13:55-05:00 Request OTOY.; [employer], [employer]. Start: 08-30-2024 Assay of free thyroxine THYROX INE (T4) FREE ([id number]) Start: 30-Aug-2024 13:55-05:00 Request CSR; OTOY. Start: 08-30-2024 Patient encounter procedure Medical; [facility] Start: 30-Aug-2024 13:10-05:00 VALARIE Batista Appointment [facility] Start: 08-16-2024 Nursing evaluation o f patient and report [facility] Start: 16-Aug-2024 09:00-05:00 ROOM, PROCEDURE (DRAW) [facility]ment [facility] Start: 03-19-2024 Covid-19 Vaccine () Covid-19 Vaccine () [facility] Start: 03-19-2024 Covid-19 Vaccine () Covid-19 Vaccine () [facility] Start: 05-13-2023 Patient discharge [facility] Start: 2006 Screening for malign ant neoplasm of cervix Cervical Cancer Screening [facility] Start: 2004 Hepatitis B Vaccine (1 of 3 - 19+ 3-dose series) Hepatitis B Vaccine (1 of 3 - 19+ 3-dose series) [facility] Start: 2004 Urine microalbumin profile DTa P,Tdap,Td Vaccine (1 - Tdap) [facility] Start: 2003 Anxiety Screening Anxiety Screening [facility] Start: 2003 Depression Screening Depression Scre ening [facility] Start: 2003 Hepatitis C screening Hepatitis C Sc reening [facility] Start: 2003 HIV screening HIV Screening [facility] Patient referral [facility] Work Phone: Immunizations Immunization Date Immunization Notes Care Provider Fa cility 04-18-2021 influenza, injectabl e, quadrivalent, contains preservative Alanis Batista PA-C Work Phone: [employer] [facility]Y. 10-21-2020 COVID-Radha (AD26 .5 ML) Alanis Batista PA-C Work Phone: [employer] CSR 06-15-2018 influenza, injectabl e, quadrivalent, contains preservative Alanis Batista PA-C Work Phone: CSR; CSR Comment on above: Site: Right DeltoidV IS Given: * Influenza - Inactivated (02/22/15) 06-15-2018 influenza virus vacc ine, unspecified formulation Jeyson Bustamante MD Work Phone: [facility] 05-19-2017 influenza, injectabl e, quadrivalent, contains preservative Alanis Batsita PA-C Work Phone: CSR; CSR Comment on above: given at work 09-18-2016 tetanus toxoid, redu dayna diphtheria toxoid, and acellular pertussis vaccine, adsorbed Alanis Batista PA-C Work Phone: CSR; CSR Comment on above: Site: Deltoid (Left) VIS Given: * Tdap (Tetanus, Diphtheria, Pertussis) (09/11/14) 06-10-2016 unknown vaccine or immune globulin Alanis Batista PA-C Work Phone: CSR; CSR 06-10-2016 influenza, injectabl e, quadrivalent, contains preservative Alanis Batista PA-C Work Phone: CSR; OTOY. Comment on above: Site: Deltoid (Left) VIS Given: * Influenza - Inactivated (02/22/15) 08-01-2004 hepatitis B vaccine, adult dosage Alanis Batista PA-C Work Phone: CSR; CSR 03-10-2004 hepatitis B vaccine, adult dosage Alanis Batista PA-C Work Phone: CSR; CSR 02-08-2004 hepatitis B vaccine, adult dosage Alanis Batista PA-C Work Phone: CSR; [facility] 02-08-2004 meningococcal oligosaccharide (groups A, C, Y and W-135) diphtheria toxoid conjugate vaccine (MCV4O) Alanis Batista PA-C Work Phone: [facility].; [facility] 02-08-2004 TD(adult) unspecifie d formulation Alanis Batista PA-C Work Phone: [facility].; [facility] 12-05-1997 measles, mumps and rubella virus vaccine Alanis Batista PA-C Work Phone: [facility] 02-09-1991 diphtheria, tetanus toxoids and acellular pertussis vaccine Alanis Batista PA-C Work Phone: [facility].; [facility] 01-28-1987 diphtheria, tetanus toxoids and pertussis vaccine Alanis Batista PA-C Work Phone: [facility].; [facility] 10-30-1986 measles, mumps and rubella virus vaccine Alanis Batista PA-C Work Phone: [facility].; [facility] 1985 diphtheria, tetanus toxoids and pertussis vaccine Alanis Batista PA-C Work Phone: [facility].; [facility] 1985 trivalent poliovirus vaccine, live, oral Alanis Batista PA-C Work Phone: [facility].; [facility] 1985 diphtheria, tetanus toxoids and pertussis vaccine Alanis Batista PA-C Work Phone: [facility].; [facility] 1985 trivalent poliovirus vaccine, live, oral Alanis Batista PA-C Work Phone: [facility].; [facility] 1985 diphtheria, tetanus toxoids and pertussis vaccine Alanis Lester SHEPPARD Work Phone: [facility].; [facility] 1985 trivalent poliovirus vaccine, live, oral Alanisgolden Batista PA-C Work Phone: [facility] [employer] [facility]. Payers Date Payer Category Payer Self-pay [id number] 2016 [employer] BLUE CARD PPO OOS [id number] 2016 Unknown [id number] 1985 Unknown [id number] 1985 Unknown [id number] 65 1985 Unknown [id number] 65 1985 Unknown [id number] 65 Unknown [facility] PACKAGE PLAN [id number] Unknown ANTHEM Unknown [id number] Unknown [id number] Unknown [id number] .462 Unknown [id number] .462 Unknown [id number] .462 Unknown [id number] .462 Unknown [id number] .462 Unknown [id number] Social History Date Type Detail Facility Start: 05-05-2023 Tobacco smoking status NVIS Unknown if ever smoked [facility] Start: 1985 Sex Assigned At Female [facility] Alcohol Use: Alcohol Use: ; Occasional alcohol use. OTOY.; OTOY. Start: 12-06-2024 End: 01-02-2025 Caffeine Use Caffeine Use [employer] Primary Contro l Method: Primary Control Method: ; Partner had vasectomy. OTOY.; [employer], [employer] Tobacco Use: Tobacco Use: ; N ever smoker. OTOY.; OTOY Occasional alcoh ol use [employer] OTOY Work Phone: Start: 12-06-2023 End: 12-06-2024 Never smoked tobacco [facility] Partner had vasectomy OTOY.; OTOY Work Phone: Start: 10-12-2024 End: 10-26-2024 Sex Female (finding) [facility] Start: 1985 [facility] assigned at [facility] Start: 12-06-2024 End: 01-02-2025 Gender identity Not on file [facility] Start: 12-06-2024 Tobacco use and exposure Smokeless tobacco non-user [facility] Start: 12-06-2024 End: 01-02-2025 Alcoholic beverage intake Current drinker of alcohol (finding) [facility] National Score (1-100), lower number is lower risk 80 [facility] NEGATED: Highlighted row [facility] NEGATED: Highlighted row Not [facility] NEGATED: Highlighted rowStart: NINF History of tobacco use Passive smoker [facility] Medical Equipment Procedure Code Equipment Code Equipment Original Text Equipment Identifier Dates Thyroidectomy SUTURE,LIGA CLIP MED [id number] FDA Start: 06-23-2021 Thyroidectomy SUTURE,LIGA CLIP SM LT-100 FDA Start: 06-23-2021 Thyroidectomy SUTURE,LIGA CLIP MED [id number] FDA Start: 06-23-2021 Thyroidectomy SUTURE,LIGA CLIP SM LT-100 FDA Start: 06-23-2021 Thyroidectomy SUTURE,LIGA CLIP MED [id number] FDA Start: 06-23-2021 Thyroidectomy SUTURE,LIGA CLIP SM LT-100 FDA Start: 06-23-2021 Thyroidectomy SUTURE,LIGA CLIP MED LT200 FDA Start: 06-23-2021 Thyroidectomy SUTURE,LIGA CLIP SM LT-100 FDA Start: 06-23-2021 Gastrointestinal telemetric monitoring system ([id number] FDA Start: 05-13-2023 Goals Date Patient Goal Desired Activity /State Functional Status Date Assessment Result Facility 01-12-2025 Are you deaf, or do you have serious difficulty hearing No 01/12/2025 8:20 AM Teresa Sanches RN No [facility] 01-12-2025 Are you blind, or do you have serious difficulty seeing, even when wearing glasses No 01/12/2025 8:20 AM Teresa Sanches RN No [facility] 01-12-2025 Do you have serious difficulty walking or climbing stairs No 01/12/2025 8:20 AM Teresa Sanches RN No [facility] 01-12-2025 Do you have difficul ty dressing or bathing No 01/12/2025 8:20 AM Teresa Sanches RN No [facility] 01-12-2025 Because of a physica l, mental, or emotional condition, do you have difficulty doing errands alone such as visiting a physician's office or shopping No 01/12/2025 8:20 AM Teresa Sanches RN No [facility] Mental Status Date Assessment Result Facility 01-12-2025 Because of a physica l, mental, or emotional condition, do you have serious difficulty concentrating, remembering, or making decisions No 01/12/2025 8:20 AM Teresa Sanches RN No [facility] 10-26-2024 Cognitive function Voice/Name [facility] Work Phone: 05-13-2023 Cognitive function Level Of Cons ciousness Appropriate;Drowsy [facility] Work Phone: 05-13-2023 Cognitive function Voice/Name [facility] Work Phone: Clinical Notes 05-13-2023 to 02-14-2025 Telephone Encounter - Joya Escobar - 02/14/2025 12:09 PM EDTTelephone Encounter - Joya Escobar - 02/14/2025 12:09 PM EDTTelephone Encounter - Johan Velázquez - 02/14/2025 10:58 AM EDT Note Date & Type Note Facility 02-14-2025 Telephone encounter Note Pt. Reports concern over her voice which started about two weeks ago. Pt. Reports her voice is better in the morning but as she talks throughout the day her voice gets more hoarse. Pt. Has not lost voice completely but her voice is not to where it was at baseline before surgery. Pt. Reports having to clear throat at times. Please advise. [facility] 02-14-2025 Miscellaneous Notes Pt. Reports concern over her voice which started about two weeks ago. Pt. Reports her voice is better in the morning but as she talks throughout the day her voice gets more hoarse. Pt. Has not lost voice completely but her voice is not to where it was at baseline before surgery. Pt. Reports having to clear throat at times. Please advise. February 14, 2025 [id number] Patient Name: Sima Keen Contact Information: [phone] (home) [phone] (cell) Reason For Call: Patient is calling because she had surgery with Dr. Bustamante on 01/11 and is having concerns with her voice can you please call patient back? Physician: Jeyson Bustamante MD documented in this encounter [facility] 02-14-2025 Telephone encounter Note February 14, 2025 [id number] Patient Name: Sima Keen Contact Information: [phone] (home) [phone] (cell) Reason For Call: Patient is calling because she had surgery with Dr. Bustamante on 01/11 and is having concerns with her voice can you please call patient back? Physician: Jeyson Bustamante MD [facility] 02-14-2025 Telephone encounter Note Images from the original note were not included. Bobbi De La Paz MD P [facility] Clerical Pool please call this patient and help her set up a virtual visit for 6 weeks 1st attempt sent karthikeyan Perez [facility] 02-14-2025 Miscellaneous Notes Images from the original note were not included. Bobbi De La Paz MD P [facility] Clerical Pool please call this patient and help her set up a virtual visit for 6 weeks 1st attempt sent karthikeyan Perez documented in this encounter [facility] 02-13-2025 Instructions Bobbi De La Paz MD - 02/13/2025 4:03 PM EDT Assessment / Plan Assessment: 1) Thyroid CA ,papillary, with multiple central nodes recently resected by Dr. Bustamante. Will need MI, she lives in [place], I will organize seeing where this can be done, presumably [facility] or possibly [facility]. I'll get labs done now, since she is 1 month postop. Treatment / Plan: 1) continue on 112 mcg levothyroxine daily. 2) get labs done soon, I'll send comment via [employer] about the labs 3) think about when you would like to get radioactive iodine (no children in the house for the next 5 days). 4) return to me in 6 weeks via virtual visit. Bobbi De La Paz MD Data Latest Ref Rng 01/12/2025 Calcium 8.5 - 10.2 mg/dL 8.8 PTH, Intact 15 - 65 pg/mL 31 Latest Ref Rng 12/06/2024 Thyroglobulin Ab, Serum <4.0 IU/mL 3.4 Thyroglobulin, Serum 1.6 - 50.0 ng/mL 27.6 TSH 0.270 - 4.200 mIU/L 2.250 documented in this encounter [facility] 02-13-2025 History of Presen t illness Narrative Virtual Endocrinology Consult utilizing both audio and video components [employer]-Zoom Requesting Provider: Elan Bustamante Opinion/advice regarding: thyroid CA My final recommendations will be communicated back to the requesting physician by way of shared Medical record or letter to requesting physician via [place] mail. I have communicated my name and active licensure. The patient's identity and physical location were verified at the time of this visit. Either the patient or their legal direct customer service representative has been informed of the risks and benefits of -- and alternatives to -- treatment through a remote evaluation and consents to proceed with the evaluation remotely. Patient location: [place], [place]. I spent a total of 60 minutes on the date of the service which included preparing to see the patient, [id number] patient care, completing clinical documentation, counseling and educating the patient/family/caregiver, and ordering medications, tests, or procedures. Assessment / Plan Assessment: 1) Thyroid CA ,papillary, with multiple central nodes recently resected by Dr. Bustamante. Will need MI, she lives in [place], I will organize seeing where this can be done, presumably [facility] or possibly [facility]. I'll get labs done now, since she is 1 month postop. Treatment / Plan: 1) continue on 112 mcg levothyroxine daily. 2) get labs done soon, I'll send comment via Se[employer] about the labs 3) think about when you would like to get radioactive iodine (no children in the house for the next 5 days). 4) return to me in 6 weeks via virtual visit. Bobbi De La Paz MD Data Latest Ref Rng 01/12/2025 Calcium 8.5 - 10.2 mg/dL 8.8 PTH, Intact 15 - 65 pg/mL 31 Latest Ref Rng 12/06/2024 Thyroglobulin Ab, Serum <4.0 IU/mL 3.4 Thyroglobulin, Serum 1.6 - 50.0 ng/mL 27.6 TSH 0.270 - 4.200 mIU/L 2.250 History Surgical hypothyroidism : levothyroxine 112 mcg daily takes when she wakes up, mineral supplements are 4 hours after levothyroxine didn't know about catching up for missed doses. 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 Left thyroid lobe benign thyroid tissue Scan (02/10/25): none to-date MI (02/10/25): none to-date Thyroglobulin Thyroglobulin Ab, Serum Thyroglobulin, Serum Latest Ref Rng <4.0 IU/mL 1.6 - 50.0 ng/mL 12/06/2024 3.4 27.6 Vitamin D (02/10/25): none to-date Ultrasound (12/06/2024): per Dr. Bustamante: left thyroid lobe that is approximately 2 fold enlarged. It is of a slightly heterogeneous echotexture. There are no nodules within this left thyroid lobe. Within the right thyroid bed is a more dominant 1.3 cm almost spherical hypoechoic nodule and an adjacent 4 mm nodule just cephalad to this. In addition in the region of the thyroid isthmus is a similar-appearing hypoechoic structure measuring approximately 1.3 cm. The structures do not demonstrate increased color flow Doppler signal nor any internal calcifications. I can appreciate no worrisome lymph nodes in either jugular chain. ROS Constit: negative for fever, weight loss, malaise EYE: negative for blurred vision, double vision, cataracts ENT: negative for hoarseness, sore throat CV: negative for chest pain or pressure, heart attack, claudication, vascular intervention, Resp: negative for dyspnea, asthma or wheezing GI: negative for nausea, abcominal pain, diarrhea : negative for dysuria, urinary tract infection MSkel: negative for myalgia, cramping, weakness Skin/Breast: negative for rash, change in skin color, breast discharge Neuro: negative for resting acral dysesthesias, stroke, TIA Psych: negative for 6 mo down/depressed/hopeless, low interest/pleasure doing things, sleep disturbance. Endo: negative for nocturia, polydipsia, thyroid disease Heme/Lymph: Negative for enlarged lymph nodes, easy bruising, history of cancer/malignancy, history of transfusion. Allergy/Immunology: Negative for eczema, seasonal runny nose. PHYSICAL EXAM PAST MED / SURG / FAMILY / SOCIAL HISTORY PAST MEDICAL HISTORY Diagnosis Date Anxiety 01/02/2025 Esophagitis 01/02/2025 History of lobectomy of thyroid 01/02/2025 PONV (postoperative nausea and vomiting) 01/02/2025 PAST SURGICAL HISTORY Procedure Laterality Date SECTION HX EGD W/O BRSH SPEC VARICIES INJ THYROID LOBECTOMY,UNILAT Right No family history on file. Social History Tobacco Use Smoking status: Never Passive exposure: Never Smokeless tobacco: Never Substance Use Topics Alcohol use: Yes Drug use: Never MEDICATIONS & ALLERGIES Current Outpatient Medications Medication Sig Dispense Refill levothyroxine (SYNTHROID) 112 mcg tablet Take 1 tablet by mouth once daily. 90 tablet 0 levothyroxine (SYNTHROID) 112 mcg tablet Take 1 tablet by mouth daily at 6 am. 90 tablet 0 calcium carbonate (TUMS) 500 mg chew Take 1 tablet by mouth every hour as needed (mouth or hand numbness or tingling). [id number]-[id number] D3 500 mg-5 mcg (200 unit) per tablet Take 1 tablet by mouth three times a day. hydrOXYzine HCl (ATARAX) 25 mg tablet Take 25 mg by mouth once daily. BUDESONIDE ORAL Take by mouth. Pt uses Liquid 2ml in Am and 2ml in pm No current facility-administered medications for this visit. ALLERGIES Allergen Reactions Cefaclor Rash documented in this encounter [facility] 02-13-2025 Note HNO ID: [id number] Author: BOBBI DE LA PAZ MD Service: ? Author Type: Physician Type: Progress Notes Filed: 02/13/2025 16:05 Note Text: Virtual Endocrinology Consult utilizing both audio and video components MyChart-Zoom Requesting Provider: Elan Bustamante Opinion/advice regarding: thyroid CA My final recommendations will be communicated back to the requesting physician by way of shared Medical record or letter to requesting physician via US mail. I have communicated my name and active licensure. The patient's identity and physical location were verified at the time of this visit. Either the patient or their legal direct customer service representative has been informed of the risks and benefits of -- and alternatives to -- treatment through a remote evaluation and consents to proceed with the evaluation remotely. Patient location: [place], [place]. I spent a total of 60 minutes on the date of the service which included preparing to see the patient, [id number] patient care, completing clinical documentation, counseling and educating the patient/family/caregiver, and ordering medications, tests, or procedures. Assessment / Plan Assessment: 1) Thyroid CA ,papillary, with multiple central nodes recently resected by Dr. Bustamante. Will need IM, she lives in [place], I will organize seeing where this can be done, presumably [facility] or possibly [facility]. I'll get labs done now, since she is 1 month postop. Treatment / Plan: 1) continue on 112 mcg levothyroxine daily. 2) get labs done soon, I'll send comment via [employer] about the labs 3) think about when you would like to get radioactive iodine (no children in the house for the next 5 days). 4) return to me in 6 weeks via virtual visit. Bobbi De La Paz MD Data Latest Ref Rng 01/12/2025 Calcium 8.5 - 10.2 mg/dL 8.8 PTH, Intact 15 - 65 pg/mL 31 Latest Ref Rng 12/06/2024 Thyroglobulin Ab, Serum <4.0 IU/mL 3.4 Thyroglobulin, Serum 1.6 - 50.0 ng/mL 27.6 TSH 0.270 - 4.200 mIU/L 2.250 History Surgical hypothyroidism : levothyroxine 112 mcg daily takes when she wakes up, mineral supplements are 4 hours after levothyroxine didn't know about catching up for missed doses. 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 Left thyroid lobe benign thyroid tissue Scan (02/10/25): none to-date MI (02/10/25): none to-date Thyroglobulin Thyroglobulin Ab, Serum Thyroglobulin, Serum Latest Ref Rng <4.0 IU/mL 1.6 - 50.0 ng/mL 12/06/2024 3.4 27.6 Vitamin D (02/10/25): none to-date Ultrasound (12/06/2024): per Dr. Bustamante: left thyroid lobe that is approximately 2 fold enlarged. It is of a slightly heterogeneous echotexture. There are no nodules within this left thyroid lobe. Within the right thyroid bed is a more dominant 1.3 cm almost spherical hypoechoic nodule and an adjacent 4 mm nodule just cephalad to this. In addition in the region of the thyroid isthmus is a similar-appearing hypoechoic structure measuring approximately 1.3 cm. The structures do not demonstrate increased color flow Doppler signal nor any internal calcifications. I can appreciate no worrisome lymph nodes in either jugular chain. ROS Constit: negative for fever, weight loss, malaise EYE: negative for blurred vision, double vision, cataracts ENT: negative for hoarseness, sore throat CV: negative for chest pain or pressure, heart attack, claudication, vascular intervention, Resp: negative for dyspnea, asthma or wheezing GI: negative for nausea, abcominal pain, diarrhea : negative for dysuria, urinary tract infection MSkel: negative for myalgia, cramping, weakness Skin/Breast: negative for rash, change in skin color, breast discharge Neuro: negative for resting acral dysesthesias, stroke, TIA Psych: negative for 6 mo down/depressed/hopeless, low interest/pleasure doing things, sleep disturbance. Endo: negative for nocturia, polydipsia, thyroid disease Heme/Lymph: Negative for enlarged lymph nodes, easy bruising, history of cancer/malignancy, history of transfusion. Allergy/Immunology: Negative for eczema, seasonal runny nose. PHYSICAL EXAM PAST MED / SURG / FAMILY / SOCIAL HISTORY PAST MEDICAL HISTORY Diagnosis Date Anxiety 01/02/2025 Esophagitis 01/02/2025 History of lobectomy of thyroid 01/02/2025 PONV (postoperative nausea and vomiting) 01/03/20 (more content not included)... [facility] 01-29-2025 Note HNO ID: [id number] Author: JAYLA CARR MD Service: ? Author Type: Physician Type: Progress Notes Filed: 01/29/2025 09:45 Note Text: Endocrine Surgery Virtual Post-Op Visit Patient Name: Sima Keen Patient Visit Type: Virtual Procedure: R CND + completion left thyroid lobectomy Date of Procedure: 01/11/2025 Attending Surgeon: Dr. Bustamante Sima Keen is a 39 year old female who underwent right central neck dissection and completion left thyroid lobectomy on 01/11/[address] Bustamante for thyroid cancer. Patient tolerated the procedure well and was discharged on POD1. Of note, on POD1, Ca was 8.8 and PTH was 31. Interval History: Since discharge, patient has been doing well at home, recovering appropriately. Pain was well-managed. She did have occasional headaches after surgery but it seems to be getting better over time. Incision is healing appropriately without swelling, erythema, or drainage. Patient remains on levothyroxine 112 mcg daily and calcium-D3 TID. She denied any numbness or tingling. Pathology: FINAL DIAGNOSIS A. Skin, scar neck incision, excision: - Skin with scar tissue, negative for malignancy. B. Soft tissue, right central neck mass, excision: - Metastatic papillary thyroid carcinoma involving two lymph nodes (2/2), with focal extranodal extension. C. Soft tissue, right anterior tracheal mass, biopsy: - Metastatic papillary thyroid carcinoma involving one lymph node (1/). D. Thyroid, left, completion thyroidectomy: - Benign thyroid tissue. E. Lymph nodes, right central neck contents, dissection: - Metastatic papillary thyroid carcinoma involving five of eight lymph nodes (5/8). Assessment/Plan: Sima Keen is recovering well s/p completion left thyroid lobectomy and right CND. The pathology results were discussed in detail, including that 11 total lymph nodes were removed, of which 8 were positive. I also explained that the left thyroid lobe did not have any cancer cells. - I discussed with the patient and her mother that patient will most likely need MI. We will refer her to medical endocrinology who can facilitate the MI discussion as well as take part in patient's care moving forward. - Since patient reports no paresthesias and her POD1 PTH was 31, I advised the patient to wean her calcium supplements from TID to daily and monitor for any hypocalcemic symptoms. In absence of symptoms, the patient can further wean her calcium supplement. - Thyroid labs will be collected approximately 6 weeks after the surgery date, after which we will decide whether or not the levothyroxine dose needs to be altered. All questions were answered, and patient expressed understanding. Otherwise, the patient will follow up with Dr. Bustamante in 6 months for routine surveillance. Jayla Carr MD Clinical Associate / Fellow Endocrine Surgery [facility] 01-29-2025 History of Presen t illness Narrative Endocrine Surgery Virtual Post-Op Visit Patient Name: Sima Keen Patient Visit Type: Virtual Procedure: R CND + completion left thyroid lobectomy Date of Procedure: 01/11/2025 Attending Surgeon: Dr. Bustamante Sima Keen is a 39 year old female who underwent right central neck dissection and completion left thyroid lobectomy on 01/11/[address] Bustamante for thyroid cancer. Patient tolerated the procedure well and was discharged on POD1. Of note, on POD1, Ca was 8.8 and PTH was 31. Interval History: Since discharge, patient has been doing well at home, recovering appropriately. Pain was well-managed. She did have occasional headaches after surgery but it seems to be getting better over time. Incision is healing appropriately without swelling, erythema, or drainage. Patient remains on levothyroxine 112 mcg daily and calcium-D3 TID. She denied any numbness or tingling. Pathology: FINAL DIAGNOSIS A. Skin, scar neck incision, excision: - Skin with scar tissue, negative for malignancy. B. Soft tissue, right central neck mass, excision: - Metastatic papillary thyroid carcinoma involving two lymph nodes (2/2), with focal extranodal extension. C. Soft tissue, right anterior tracheal mass, biopsy: - Metastatic papillary thyroid carcinoma involving one lymph node (1). D. Thyroid, left, completion thyroidectomy: - Benign thyroid tissue. E. Lymph nodes, right central neck contents, dissection: - Metastatic papillary thyroid carcinoma involving five of eight lymph nodes (5/8). Assessment/Plan: Sima Keen is recovering well s/p completion left thyroid lobectomy and right CND. The pathology results were discussed in detail, including that 11 total lymph nodes were removed, of which 8 were positive. I also explained that the left thyroid lobe did not have any cancer cells. - I discussed with the patient and her mother that patient will most likely need MI. We will refer her to medical endocrinology who can facilitate the MI discussion as well as take part in patient's care moving forward. - Since patient reports no paresthesias and her POD1 PTH was 31, I advised the patient to wean her calcium supplements from TID to daily and monitor for any hypocalcemic symptoms. In absence of symptoms, the patient can further wean her calcium supplement. - Thyroid labs will be collected approximately 6 weeks after the surgery date, after which we will decide whether or not the levothyroxine dose needs to be altered. All questions were answered, and patient expressed understanding. Otherwise, the patient will follow up with Dr. Bustamante in 6 months for routine surveillance. Jayla Carr MD Clinical Associate / Fellow Endocrine Surgery [facility] documented in this encounter [facility] 01-17-2025 Miscellaneous Notes Done- e-mailed return to work letter via my chart, pt. aware. Thbryant MB documented in this encounter [facility] 01-17-2025 Telephone encounter Note Done- e-mailed return to work letter via my chart, pt. awareLeanna NEGRON [facility] 01-17-2025 Telephone encounter Note Summary: Return to work Shanna Abarca, Patient called and is wondering if she can get a return to work form can you help with this please? Call back [phone] [facility] 01-17-2025 Miscellaneous Notes Summary: Return to work Shanna Abarca, Patient called and is wondering if she can get a return to work form can you help with this please? Call back [phone] documented in this encounter [facility] 01-12-2025 Note HNO ID: [id number] Author: DAVID WINTER MD Service: Endocrine Surgery Author Type: Physician Type: Progress Notes Filed: 01/12/2025 07:12 Note Text: General Surgery Progress Note Patient Name: Sima Keen Date: January 12, 2025 Time: 7:11 AM Patient was seen and examined. The patient reports tolerable incisional pain. Voice is strong. They are tolerating a diet and liquids. The patient denies perioral numbness or paresthesia. AM Ca 8.8 and PTH 31. 01/11/25 1811 01/11/25 1948 01/12/25 0008 01/12/25 0507 BP: 124/72 122/79 99/64 105/71 Pulse: 85 96 74 62 Resp: 16 16 16 Temp: 37.1 ?C (98.8 ?F) 37 ?C (98.6 ?F) 36.6 ?C (97.9 ?F) 36.8 ?C (98.2 ?F) TempSrc: Oral Oral Oral SpO2: 96% 96% 98% 100% Weight: Height: General: Well appearing, in no distress. Oriented x 3. Neck: Supple, appropriately tender to palpation, soft, incision clean/dry/intact, no evidence of deep neck hematoma Mouth: Mucous membranes moist. Heart: Regular rate and rhythm. Lungs: Unlabored breathing. Abdomen: Soft. No tenderness. No rebound. No guarding. Labs: Recent Labs 01/12/25 0520 CA 8.8 PTH: 31 Assessment: Sima Keen is a 39 year old who is s/p right central neck dissection and completion left thyroid lobectomy for thyroid cancer. Recovering well. Plan: - Regular diet - Cleared for discharge with synthroid, calcium and vitamin D supplementation - Will follow-up pathology results at 2 week virtual post-op visit David Winter MD [phone] Clinical Associate Endocrine and Metabolism [place], Department of Endocrine Surgery [facility] 01-11-2025 Note HNO ID: [id number] Author: DAVID WINTER MD Service: Endocrine Surgery Author Type: Physician Type: Progress Notes Filed: 01/11/2025 19:14 Note Text: ENDOCRINE SURGERY INPATIENT PROGRESS NOTE Name: Sima Keen Date: January 11, 2025 POD# 0 s/p right central neck dissection with left completion lobectomy S: Postoperative check was done and the patient is recovering appropriately. No dysphagia. No dysphonia. No paresthesias. No signs of hematoma. O: PHYSICAL EXAM: BP 124/72 Pulse 85 Temp 37.1 ?C (98.8 ?F) Resp 17 Ht 170.2 cm (5' 7) Wt 71.2 kg (157 lb) LMP 12/05/2024 SpO2 96% BMI 24.59 kg/m? General Appearance: In no acute distress. Well appearing. Neuro: Alert and oriented x3. Neck: soft, incision clean/dry/intact, no evidence of deep neck hematoma Abdomen: Soft. Non-distended. Non-tender. No guarding or rebound. Extremities: Warm and well perfused. Intake/Output Summary (Last 24 hours) at 01/11/2025 1913 Last data filed at 01/11/2025 1540 Gross per 24 hour Intake 1300 ml Output 50 ml Net 1250 ml ASSESSMENT: Sima Keen is POD 0 from right central neck dissection with left completion lobectomy and recovering well. PLAN of Care: - Multimodal pain regimen, minimize narcotics - Regular diet - Scheduled calcium - Follow-up PTH and Ca in AM - No SQH - SCDs - Monitor overnight in the surgical floor David Winter MD [phone] Clinical Associate Endocrine and Metabolism [place], Department of Endocrine Surgery [facility] 01-11-2025 Note HNO ID: [id number] Author: CHARISMA LARSEN AA Service: Anesthesiology Author Type: Director Biomedical Engineering Type: Anesthesia Procedure Notes Filed: 01/11/2025 12:59 Note Text: ANESTHESIOLOGY PROCEDURE NOTE Airway General Information Procedure Start Time/Medication Administration: 01/11/2025 12:40 PM Procedure End Time: 01/11/2025 12:40 PM Patient location during procedure: OR Timeout Performed Pre-procedure: timeout performed Consent Obtained: Yes Patient identity confirmed: arm band and patient Staffing CAA: Charisma Larsen AA Performed by: anesthesiologist and CAA Indications and Patient Condition Indications for airway management: anesthesia and airway protection Preoxygenated: yes anesthesia circuit Patient position: sniffing Method: asleep Cricoid Pressure: No Manual In-Line Stabilization: No Difficult Mask: No Final Airway Details Final airway type: endotracheal airway Final Endotracheal Airway: ETT Cuffed: yes Successful intubation technique: video laryngoscopy Devices used: Patel Endotracheal tube insertion site: oral Blade: Yazan Blade size: #3 ETT size (mm): 7.0 Measured from: lips Measurement (cm): 23 Placement verified by: capnometry Cormack-Lehane Classification: grade I - full view of glottis Number of attempts at approach: 1 Failed airway: no Unrecognized esophageal intubation: no Airway not difficult SIGNATURE: ANDERSON Chatman PATIENT NAME: Sima Keen DATE: January 11, 2025 TIME: 12:58 PM CSN: [id number] [facility] 01-02-2025 Instructions Dina Najera APRN.ENVIRONMENTAL COMPLIANCE TECHNICIAN - 01/02/2025 10:19 AM EDT Images from the original note were not included. [facility] PATIENT PREOPERATIVE INSTRUCTIONS Jeyson Bustamante MD has scheduled you for your procedure at this surgery center: [facility]: [phone] -- [address] [place] [address]. Please read below carefully for your personalized instructions. Dietary Restrictions: - No solid food after midnight. - You may have 12 ounces of clear liquids (water, clear juices such as apple juice or gatorade, carbonated beverages, clear tea, black coffee, jello) until 2 hours before scheduled arrival at facility. Medications: Unless instructed differently below, stay on all of your medications until your surgery. If you start any new medications after today's visit, please contact your surgeon. Pre-Surgery Med Instructions Medication Instructions hydrOXYzine HCl (ATARAX) 25 mg tablet If you normally take this medication in the morning, take the morning of surgery. BUDESONIDE ORAL If you normally take this medication in the morning, take the morning of surgery. If you start any new medications after today's visit, please contact the surgeon's office. If you are currently using a wkrp-lpf-wttw injectable or oral medication for diabetes or weight loss such as Dulaglutide (Trulicity), Exenatide (Byetta, Bydureon), Liraglutide (Victoza, Saxenda), Semaglutide (Ozempic, Wegovy, Rybelsus), or Tirzepatide (Mounjaro), the medicine should be stopped at least 7 days before surgery. These medicines can cause food to remain in your stomach for a very long time and increase the risks from surgery and anesthesia. Not stopping the medication for a long enough time may result in your surgery being rescheduled. Blood Thinning Medications: - Stop NSAIDS (Ibuprofen, Advil, Aleve, Motrin, Celebrex, Mobic, etc.) 7 days before surgery, as directed by your surgeon. - Stop Aspirin 7 days before surgery, as directed by your surgeon. - Stop ALL herbal and dietary supplements 14 days before surgery. - You may take Tylenol (Acetaminophen) or any of your pain medications that do not contain aspirin or NSAIDS as needed. Important Reminders: - Candy, mints, and tobacco products are NOT permitted the morning of surgery. - Hearing aids, dentures and glasses may be worn the morning of surgery. - NO jewelry, body piercings, makeup, hairpins or contacts are to be worn the day of surgery. If you develop symptoms such as a fever, cold, or flu, or have other changes to your health within TWO DAYS of scheduled surgery or the morning of surgery, please contact the surgery center above. Personal Belongings: -Please have photo ID and insurance cards. -If you do not have a copy of advance directives on file with us, please bring a copy with you on the day of surgery. - Leave ALL valuables and money at home or with family members. - Please bring high-quality footwear, such as sneakers, to the hospital for ambulating post-surgery. For Outpatient Procedures: - YOU MUST HAVE A RESPONSIBLE PART TIME TAKE YOU HOME. A LIFESTYLE BLOCK FARMER OR INDUSTRIAL SALES MANAGER CANNOT BE MADE A RESPONSIBLE PART TIME. - We recommend that a responsible person stays with you overnight to take care of you. - You cannot stay in a hotel alone after outpatient surgery. You will not be permitted to have your surgery, if you do not have someone to take care of you. Arrival Time for Surgery: - The Surgery Center or hospital where you are having surgery will call the afternoon before surgery (or Wednesday for Wednesday surgery) with a scheduled arrival time. - If you have not heard by 4 pm, please contact the surgery center above. Please be aware that emergency situations arise, which may delay or change your surgical time. If this happens, we will notify you as soon as possible and regret any inconvenience. If you already have an Advance Directive, please fax a copy to [phone] or email to for it to be added to your chart. If you do not have an Advance Directive, you can find the appropriate form and more information at [email or web address]. We recommend that you complete the Advance Directive form found on the website and bring it with you the day of your surgery. It can be witnessed and scanned into your chart that day. Dina Najera APRN.STEPHANY documented in this encounter [facility] 01-02-2025 History and physical note Images from the original note were not included. [facility] Pre-Anesthesia Consultation Clinic HISTORY AND PHYSICAL EXAMINATION SERVICE DATE: 01/02/2025 SERVICE TIME: 9:50 AM This is a virtual visit using Virtual Visit (Audio/Visual)I have discussed the nature of this visit with the patient which will occur via [facility] (Phone, Virtual Visit) and she agrees to proceed with this interaction. It required patient-provider interaction for the medical decision making as documented below. I have communicated my name and active licensure. The patient's identity and physical location were verified at the time of this visit. Either the patient or their legal direct customer service representative has been informed of the risks and benefits of and alternatives to treatment through a remote evaluation and consents to proceed with the evaluation remotely. PRIMARY CARE PHYSICIAN: Alanis Batista, PAC Assessment Patient has the following medical conditions which may affect angelica-operative course: PONV (postoperative nausea and vomiting) Patient reported Anxiety Currently on hydrOXYzine HCl (ATARAX) Followed by PCP States stables and controlled History of lobectomy of thyroid History of thyroid cancer S/P right thyroid lobectomy 2020 No longer on medication Esophagitis Currently on BUDESONIDE States stables and controlled ANESTHESIA FINDINGS: Intubation History: No history of difficult intubation. No abnormal airway history Significant Anesthesia Considerations: potential postop nausea/vomiting Airway History: No history of difficult airway No abnormal airway history Arnold Activity Status Index: METS: Walk indoors, such as around the house (1.75 METs) Do light work around the house, such as dusting or washing dishes (2.70 METs) Take care of self; that is eating, dressing, bathing, using the toilet (2.75 METs) Walk a block or two on level ground (2.75 METs) Do moderate work around the house, such as vacuuming, sweeping floors, or carrying in groceries (3.50 METs) Do yardwork, such as raking leaves, weeding, or pushing a power mower (4.50 METs) Have sexual relations (5.25 METs) Climb a flight of stairs or walk up a hill (5.50 METs) Participate in moderate recreational activites, such as golf, bowling, dancing, doubles tennis, or throwing a baseball or football (6.00 METs) Participate in strenuous sport, such as swimming, singles tennis, football, basketball, or skiing (7.50 METs) Do heavy work around the house, such as scrubbing floors, lifting or moving heavy furniture (8.00 METs) DASI Score: 50.2 Patient denies any chest pain or undue shortness of breath with the above physical activity. Clinical Frailty Scale: 3. Well, with treated comorbid disease STOP-Bang Score: Has been observed to stop breathing or choking/gasping during sleep Denies snoring loudly Denies feeling tired, fatigued, or sleepy during the daytime Denies having high blood pressure BMI less than or equal to 35 kg/m^2 Patient 50 years old or younger Does not have a large neck Non-male patient STOP-Bang Score: 1 [id number] Score: Age: <65 Sex: female CHF history: No Hypertension history: No Stroke/TIA/thromboembolism history: No Vascular disease history: No Diabetes history: No [id number] Score: 1 ARISCAT Score: Age: <=50 Preoperative SpO2: <=90% Respiratory infection in the last month: No Preoperative anemia: No Duration of surgery: >3 hrs Emergency procedure: No ARISCAT Score: I - PHYSICAL EVALUATION AIRWAY Patient intubated: No. Tracheostomy tube not present Mallampati: I. TM distance: >3 FB. Neck ROM: full ROM without neurological symptoms. Mouth opening: adequate. Short neck: no. Thick neck: no Ram present: no Lip Bite Test: I Microretrognathia/Micronagthia/R ecessed Chin: No DENTAL Dental findings: teeth intact. II - ANESTHESIA PLAN Anesthetic Plan: other Anesthetic plan additional comments: *PACC/TCI - anesthesia choice. Beta Jenise Monitoring Plan Post Procedure Analgesic Plan Prepared for Surgery: optimally prepared for surgery, pending [see comment]. DOS exam Reviewed 12/06/24 CBC and BMP, accepted CONSULTS: Patient does not require consults for optimization at this time Planned Anesthetic: other anesthesia choice The Following Tests/Procedures Have Been Initiated: No orders of the defined types were placed in this encounter. REASON FOR VISIT: Sima Keen is a 39 year old female who is scheduled for Procedure(s) with comments: BIOPSY OR EXCISION LYMPH NODE(S) OPEN, DEEP CERVICAL (Right) - Nerveana LOBECTOMY THYROID UNILATERAL; WITH OR WITHOUT ISTHMUSECTOMY (Left) at the request of Jeyson Holman MD for consultation. My final recommendation will be communicated back to the requesting physician by way of shared medical record or letter. 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 She endorses history of thyroid cancer right thyroid lobectomy 2020 and has been under ultrasound surveillance. She had ultrasound done on 10/04/2024 described a 2.1 x 1.4 x 1.3 cm hypoechoic area within the right thyroid bed and an additional 1.3 cm nodule more inferior closer to the region of the thyroid isthmus. Noted to have 2 nodules that have developed demonstrating thyroid tissue with atypia of undetermined significance and a suspicious molecular profiling assay. Scheduled for BIOPSY OR EXCISION LYMPH NODE(S) OPEN, DEEP CERVICAL (Right) - Nerveana LOBECTOMY THYROID UNILATERAL; WITH OR WITHOUT ISTHMUSECTOMY (Left) on 01/11/25. Denies any fever, chills, nausea, vomiting, SOB, dizziness, lightheadedness, palpitations, syncope, chest pain or abdominal pain. She has elected to proceed with the surgical procedure. REVIEW OF SYSTEMS: General: No weight loss, malaise or fevers. Negative for: malaise and fever. Neurological: No history of TIA's, stroke, IMPORT CUSTOMS CLEARING AGENT tumor, impaired sensorium, hemiplegia, paraplegia or quadraplegia. No neurological symptoms or problems. Negative for: impaired sensorium, seizures, TIA and strokes. Respiratory: No history of current cough or dyspnea, or pneumonia in the past 6 weeks. No history of respiratory/pulmonary symptoms or problems. Negative for: asthma, bronchitis, COPD, current cough, dyspnea, home oxygen, orthopnea, pneumonia within 6 weeks, tobacco use, URI < 2 weeks and obstructive sleep apnea. Cardiovascular: No history of HTN requiring medication, no history of angina, CHF, IL, cardiac surgery or stents. Denies rest pain, gangrene or revascularization/amputation for PVD. No history of cardiovascular symptoms or problems. Negative for: abdominal aortic aneurysm, AICD/PPM, angina, anticoagulation therapy, arrhythmia, atrial fibrillation, CAD, chest pain, CHF, congenital heart defect, DVT/PE, hyperlipidemia, hypertension, recent IL and murmur/valvular heart disease. GI: Negative for: abdominal pain, dysphagia, diverticulitis, GERD, GI bleed <30 days, heartburn, hepatitis, irritable bowel syndrome, inflammatory bowel disease, liver disease, nausea, pancreatitis, vomiting and ETOH >2 drinks/day. : Negative for: on dialysis, dysuria, flank pain, frequent urination, nephrolithiasis and urgency. 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 Negative for: vaginal bleeding and vaginal discharge. Endocrine: No history of diabetes. Has not taken steroids within the past 30 days. No history of endocrinological symptoms or problems. Negative for: diabetes mellitus, hyperthyroidism, hypothyroidism and hyperparathyroidism. Hematology: No history of bleeding or clotting disorder. Patient is not taking anti-coagulation or platelet medications. No history of hematological symptoms or problems. Negative for: anemia. Oncology: See HPI. Psych: No history of psychiatric symptoms or problems. Negative for: ADHD, anxiety, bipolar disorder, depression, drug dependency and Marijuana Use. Musculoskeletal: Negative for joint pain or swelling, back pain or muscle pain. Negative for: back pain, joint pain, swelling and rheumatoid arthritis. Skin: Negative for lesions, rash and itching. Negative for: lesions, itching and rash. Implanted Devices: No implanted devices. PAST MEDICAL HISTORY Diagnosis Date Anxiety 01/02/2025 Esophagitis 01/02/2025 History of lobectomy of thyroid 01/02/2025 PONV (postoperative nausea and vomiting) 01/02/2025 PAST SURGICAL HISTORY Procedure Laterality Date SECTION HX EGD W/O BRSH SPEC VARICIES INJ THYROID LOBECTOMY,UNILAT Right History reviewed. No pertinent family history. Social History Tobacco Use Smoking status: Never Passive exposure: Never Smokeless tobacco: Never Substance Use Topics Alcohol use: Yes Drug use: Never Prior to Admission medications as of 01/02/25 1017 Medication Sig Last Dose Taking hydrOXYzine HCl (ATARAX) 25 mg tablet Take 25 mg by mouth once daily. Yes BUDESONIDE ORAL Take by mouth. Pt uses Liquid 2ml in Am and 2ml in pm Yes levothyroxine (SYNTHROID) 88 mcg tablet Take 1 tablet by mouth once daily. No medication comments found. ALLERGIES Allergen Reactions Cefaclor Rash Objective PHYSICAL EXAM: General: alert and oriented and healthy appearance. Skin: normal color, no rash or lesions. HEENT: Normocephalic, atraumatic No notable cervical lymph nodes . Cardiovascular: Self palpated radial pulse, regular when counted aloud by patient . Respiratory: Equal chest rise BL, no audible wheezing No respiratory distress. Abdomen: Extremities: no deformity, no edema or tenderness, no joint swelling or clubbing. Neurological: normal cognition and motor skills. PAIN ASSESSMENT: VITALS: Ht 5' 7[Per pt[ (1.70m) Wt 157 lb (71.2kg) LMP 12/31/2024 BMI 24.58 kg/(m^2). Diagnostic tests reviewed for today's visit: Lab Value Units Date High Low HB 14.9 g/dL 12/06/2024 15.5 11.5 HCT 44.5 % 12/06/2024 46.0 36.0 WBC 8.00 k/uL 12/06/2024 11.00 3.70 PLT 276 k/uL 12/06/2024 400 150 NA 139 mmol/L 12/06/2024 144 136 K 4.3 mmol/L 12/06/2024 5.1 3.7 GLUC 95 mg/dL 12/06/2024 99 74 BUN 6 mg/dL 12/06/2024 21 7 CREAT 0.57 mg/dL 12/06/2024 0.96 0.58 PTSEC No results within date range. INR No results within date range. APTT No results within date range. ALT No results within date range. AST No results within date range. TBILI No results within date range. TSH 2.250 mIU/L 12/06/2024 4.200 0.270 Lab Value Units Date High Low HCGQT No results within date range. UHCG No results within date range. HCG, BODY* No results within date range. Lab Value Units Date High Low ABORHD No results within date range. ABSCREEN No results within date range. No results found for: HBA1C No results found for this or any previous visit (from the past 8760 hours). No results found for this or any previous visit (from the past 06070 hours). Instructions Given to Patient: Instructions located in the after visit summary. Patient given verbal and written preop instructions and voices comprehension and compliance. SIGNATURE: Dina Najera APRN.CNP PATIENT NAME: Sima Keen DATE: January 02, 2025 TIME: 10:23 AM PAGER/CONTACT #: [facility] 01-02-2025 History and physical note Images from the original note were not included. [facility] Pre-Anesthesia Consultation Clinic HISTORY AND PHYSICAL EXAMINATION SERVICE DATE: 01/02/2025 SERVICE TIME: 9:50 AM This is a virtual visit using Virtual Visit (Audio/Visual)I have discussed the nature of this visit with the patient which will occur via [facility] (Phone, Virtual Visit) and she agrees to proceed with this interaction. It required patient-provider interaction for the medical decision making as documented below. I have communicated my name and active licensure. The patient's identity and physical location were verified at the time of this visit. Either the patient or their legal direct customer service representative has been informed of the risks and benefits of and alternatives to treatment through a remote evaluation and consents to proceed with the evaluation remotely. PRIMARY CARE PHYSICIAN: Alanis Batista, PAC Assessment Patient has the following medical conditions which may affect angelica-operative course: PONV (postoperative nausea and vomiting) Patient reported Anxiety Currently on hydrOXYzine HCl (ATARAX) Followed by PCP States stables and controlled History of lobectomy of thyroid History of thyroid cancer S/P right thyroid lobectomy 2020 No longer on medication Esophagitis Currently on BUDESONIDE States stables and controlled ANESTHESIA FINDINGS: Intubation History: No history of difficult intubation. No abnormal airway history Significant Anesthesia Considerations: potential postop nausea/vomiting Airway History: No history of difficult airway No abnormal airway history Arnold Activity Status Index: METS: Walk indoors, such as around the house (1.75 METs) Do light work around the house, such as dusting or washing dishes (2.70 METs) Take care of self; that is eating, dressing, bathing, using the toilet (2.75 METs) Walk a block or two on level ground (2.75 METs) Do moderate work around the house, such as vacuuming, sweeping floors, or carrying in groceries (3.50 METs) Do yardwork, such as raking leaves, weeding, or pushing a power mower (4.50 METs) Have sexual relations (5.25 METs) Climb a flight of stairs or walk up a hill (5.50 METs) Participate in moderate recreational activites, such as golf, bowling, dancing, doubles tennis, or throwing a baseball or football (6.00 METs) Participate in strenuous sport, such as swimming, singles tennis, football, basketball, or skiing (7.50 METs) Do heavy work around the house, such as scrubbing floors, lifting or moving heavy furniture (8.00 METs) DASI Score: 50.2 Patient denies any chest pain or undue shortness of breath with the above physical activity. Clinical Frailty Scale: 3. Well, with treated comorbid disease STOP-Bang Score: Has been observed to stop breathing or choking/gasping during sleep Denies snoring loudly Denies feeling tired, fatigued, or sleepy during the daytime Denies having high blood pressure BMI less than or equal to 35 kg/m^2 Patient 50 years old or younger Does not have a large neck Non-male patient STOP-Bang Score: 1 [id number] Score: Age: <65 Sex: female CHF history: No Hypertension history: No Stroke/TIA/thromboembolism history: No Vascular disease history: No Diabetes history: No [id number] Score: 1 ARISCAT Score: Age: <=50 Preoperative SpO2: <=90% Respiratory infection in the last month: No Preoperative anemia: No Duration of surgery: >3 hrs Emergency procedure: No ARISCAT Score: I - PHYSICAL EVALUATION AIRWAY Patient intubated: No. Tracheostomy tube not present Mallampati: I. TM distance: >3 FB. Neck ROM: full ROM without neurological symptoms. Mouth opening: adequate. Short neck: no. Thick neck: no Ram present: no Lip Bite Test: I Microretrognathia/Micronagthia/R ecessed Chin: No DENTAL Dental findings: teeth intact. II - ANESTHESIA PLAN Anesthetic Plan: other Anesthetic plan additional comments: *PACC/TCI - anesthesia choice. Beta Jenise Monitoring Plan Post Procedure Analgesic Plan Prepared for Surgery: optimally prepared for surgery, pending [see comment]. DOS exam Reviewed 12/06/24 CBC and BMP, accepted CONSULTS: Patient does not require consults for optimization at this time Planned Anesthetic: other anesthesia choice The Following Tests/Procedures Have Been Initiated: No orders of the defined types were placed in this encounter. REASON FOR VISIT: Sima Keen is a 39 year old female who is scheduled for Procedure(s) with comments: BIOPSY OR EXCISION LYMPH NODE(S) OPEN, DEEP CERVICAL (Right) - Nerveana LOBECTOMY THYROID UNILATERAL; WITH OR WITHOUT ISTHMUSECTOMY (Left) at the request of Jeyson Holman MD for consultation. My final recommendation will be communicated back to the requesting physician by way of shared medical record or letter. 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 She endorses history of thyroid cancer right thyroid lobectomy 2020 and has been under ultrasound surveillance. She had ultrasound done on 10/04/2024 described a 2.1 x 1.4 x 1.3 cm hypoechoic area within the right thyroid bed and an additional 1.3 cm nodule more inferior closer to the region of the thyroid isthmus. Noted to have 2 nodules that have developed demonstrating thyroid tissue with atypia of undetermined significance and a suspicious molecular profiling assay. Scheduled for BIOPSY OR EXCISION LYMPH NODE(S) OPEN, DEEP CERVICAL (Right) - Nerveana LOBECTOMY THYROID UNILATERAL; WITH OR WITHOUT ISTHMUSECTOMY (Left) on 01/11/25. Denies any fever, chills, nausea, vomiting, SOB, dizziness, lightheadedness, palpitations, syncope, chest pain or abdominal pain. She has elected to proceed with the surgical procedure. REVIEW OF SYSTEMS: General: No weight loss, malaise or fevers. Negative for: malaise and fever. Neurological: No history of TIA's, stroke, IMPORT CUSTOMS CLEARING AGENT tumor, impaired sensorium, hemiplegia, paraplegia or quadraplegia. No neurological symptoms or problems. Negative for: impaired sensorium, seizures, TIA and strokes. Respiratory: No history of current cough or dyspnea, or pneumonia in the past 6 weeks. No history of respiratory/pulmonary symptoms or problems. Negative for: asthma, bronchitis, COPD, current cough, dyspnea, home oxygen, orthopnea, pneumonia within 6 weeks, tobacco use, URI < 2 weeks and obstructive sleep apnea. Cardiovascular: No history of HTN requiring medication, no history of angina, CHF, IL, cardiac surgery or stents. Denies rest pain, gangrene or revascularization/amputation for PVD. No history of cardiovascular symptoms or problems. Negative for: abdominal aortic aneurysm, AICD/PPM, angina, anticoagulation therapy, arrhythmia, atrial fibrillation, CAD, chest pain, CHF, congenital heart defect, DVT/PE, hyperlipidemia, hypertension, recent IL and murmur/valvular heart disease. GI: Negative for: abdominal pain, dysphagia, diverticulitis, GERD, GI bleed <30 days, heartburn, hepatitis, irritable bowel syndrome, inflammatory bowel disease, liver disease, nausea, pancreatitis, vomiting and ETOH >2 drinks/day. : Negative for: on dialysis, dysuria, flank pain, frequent urination, nephrolithiasis and urgency. 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 Negative for: vaginal bleeding and vaginal discharge. Endocrine: No history of diabetes. Has not taken steroids within the past 30 days. No history of endocrinological symptoms or problems. Negative for: diabetes mellitus, hyperthyroidism, hypothyroidism and hyperparathyroidism. Hematology: No history of bleeding or clotting disorder. Patient is not taking anti-coagulation or platelet medications. No history of hematological symptoms or problems. Negative for: anemia. Oncology: See HPI. Psych: No history of psychiatric symptoms or problems. Negative for: ADHD, anxiety, bipolar disorder, depression, drug dependency and Marijuana Use. Musculoskeletal: Negative for joint pain or swelling, back pain or muscle pain. Negative for: back pain, joint pain, swelling and rheumatoid arthritis. Skin: Negative for lesions, rash and itching. Negative for: lesions, itching and rash. Implanted Devices: No implanted devices. PAST MEDICAL HISTORY Diagnosis Date Anxiety 01/02/2025 Esophagitis 01/02/2025 History of lobectomy of thyroid 01/02/2025 PONV (postoperative nausea and vomiting) 01/02/2025 PAST SURGICAL HISTORY Procedure Laterality Date SECTION HX EGD W/O BRSH SPEC VARICIES INJ THYROID LOBECTOMY,UNILAT Right History reviewed. No pertinent family history. Social History Tobacco Use Smoking status: Never Passive exposure: Never Smokeless tobacco: Never Substance Use Topics Alcohol use: Yes Drug use: Never Prior to Admission medications as of 01/02/25 1017 Medication Sig Last Dose Taking hydrOXYzine HCl (ATARAX) 25 mg tablet Take 25 mg by mouth once daily. Yes BUDESONIDE ORAL Take by mouth. Pt uses Liquid 2ml in Am and 2ml in pm Yes levothyroxine (SYNTHROID) 88 mcg tablet Take 1 tablet by mouth once daily. No medication comments found. ALLERGIES Allergen Reactions Cefaclor Rash Objective PHYSICAL EXAM: General: alert and oriented and healthy appearance. Skin: normal color, no rash or lesions. HEENT: Normocephalic, atraumatic No notable cervical lymph nodes . Cardiovascular: Self palpated radial pulse, regular when counted aloud by patient . Respiratory: Equal chest rise BL, no audible wheezing No respiratory distress. Abdomen: Extremities: no deformity, no edema or tenderness, no joint swelling or clubbing. Neurological: normal cognition and motor skills. PAIN ASSESSMENT: VITALS: Ht 5' 7[Per pt[ (1.70m) Wt 157 lb (71.2kg) LMP 12/31/2024 BMI 24.58 kg/(m^2). Diagnostic tests reviewed for today's visit: Lab Value Units Date High Low HB 14.9 g/dL 12/06/2024 15.5 11.5 HCT 44.5 % 12/06/2024 46.0 36.0 WBC 8.00 k/uL 12/06/2024 11.00 3.70 PLT 276 k/uL 12/06/2024 400 150 NA 139 mmol/L 12/06/2024 144 136 K 4.3 mmol/L 12/06/2024 5.1 3.7 GLUC 95 mg/dL 12/06/2024 99 74 BUN 6 mg/dL 12/06/2024 21 7 CREAT 0.57 mg/dL 12/06/2024 0.96 0.58 PTSEC No results within date range. INR No results within date range. APTT No results within date range. ALT No results within date range. AST No results within date range. TBILI No results within date range. TSH 2.250 mIU/L 12/06/2024 4.200 0.270 Lab Value Units Date High Low HCGQT No results within date range. UHCG No results within date range. HCG, BODY* No results within date range. Lab Value Units Date High Low ABORHD No results within date range. ABSCREEN No results within date range. No results found for: HBA1C No results found for this or any previous visit (from the past 8760 hours). No results found for this or any previous visit (from the past 03091 hours). Instructions Given to Patient: Instructions located in the after visit summary. Patient given verbal and written preop instructions and voices comprehension and compliance. SIGNATURE: Dina Najera APRN.CNP PATIENT NAME: Sima Keen DATE: January 02, 2025 TIME: 10:23 AM PAGER/CONTACT #: documented in this encounter [facility] 12-06-2024 Note HNO ID: [id number] Author: JEYSON BUSTAMANTE MD Service: ? Author Type: Physician Type: Progress Notes Filed: 12/06/2024 14:47 Note Text: I saw your patient Sima Keen for evaluation of right sided masses in the setting of undergoing a prior right thyroid lobectomy for early thyroid cancer. Woman who generally has been in excellent health. In 2020 she was evaluated for right sided thyroid nodule that sonographically was a 1.6 cm TI-RADS 5 lesion. Fine-needle aspiration was interpreted as benign but given its suspicious sonographic appearance she underwent a right thyroid lobectomy. This was performed on 06/23/2021. Review of that operative note dictated on the day of surgery by the attending physician describes an uncomplicated right thyroid lobectomy. The right parathyroid glands were identified. The right recurrent regional nerve was intact per nerve monitoring. The contralateral left lobe was left in place. 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 Those slides have been reviewed here at the [facility] and feel that some of the features make this a more classic type papillary cancer. No lymph nodes or parathyroids were included with the specimen. She had not been placed on thyroid hormone medication and I have multiple TSH values done over the past couple years that are in the mid 2 range. Most recently on 08/30/2024 the TSH measured 2.25. She had been undergoing sonographic surveillance. In April 2023 no abnormal tissue was described in it within the right thyroid bed. A follow-up ultrasound done on 10/04/2024 described a 2.1 x 1.4 x 1.3 cm hypoechoic area within the right thyroid bed and an additional 1.3 cm nodule more inferior closer to the region of the thyroid isthmus. She underwent fine-needle aspiration of both of these that revealed atypia of undetermined significance. Both were submitted for Afirma molecular profiling and were in the suspicious category. Those cytologic slides have been reviewed viewed here at the [facility] and agree with the interpretation of atypia of undetermined significance. In the office today she is well-appearing. She has a well-healed transverse cervical incision. Palpation of the neck shows no palpable tissue within the right thyroid bed. The left thyroid lobe is moderately enlarged easily palpable without discrete nodules. I can appreciate no palpable nodes in either side of the neck. Ultrasound examination was performed in the office this demonstrates a left thyroid lobe that is approximately 2 fold enlarged. It is of a slightly heterogeneous echotexture. There are no nodules within this left thyroid lobe. Within the right thyroid bed is a more dominant 1.3 cm almost spherical hypoechoic nodule and an adjacent 4 mm nodule just cephalad to this. In addition in the region of the thyroid isthmus is a similar-appearing hypoechoic structure measuring approximately 1.3 cm. The structures do not demonstrate increased color flow Doppler signal nor any internal calcifications. I can appreciate no worrisome lymph nodes in either jugular chain. Feel the patient's evaluation has been entirely appropriate to date. In summary she has 2 nodules that have developed demonstrating thyroid tissue with atypia of undetermined significance and a suspicious molecular profiling assay. These areas do not appear typical for aidan metastases. On occasion, hyperplastic thyroid tissue may have this appearance and biopsy finding. After discussions with the patient, my plan would be to excise these areas within the right central neck compartment. If on frozen section there is a high confidence that this is benign thyroid tissue then I would terminate the procedure at that point. If there is a question that these may represent thyroid malignancy then I would plan to perform a left thyroid lobectomy, completion total thyroidectomy as she would require subsequent radioiodine ablation. In preparation for undergoing reoperative neck surgery fiberoptic laryngoscopy was performed by anesthetizing the left nares with 2% lidocaine gel in the back of the throat with topical spray. The video fiberoptic laryngoscope was introduced via her left nares and her cords were easily seen. She had no lesions of the true vocal cords. The cords move symmetrically with full abduction. Impression normal fiberoptic laryngoscopy. I will keep you informed as to her perioperative course. I appreciate being involved in the care of your patient and please feel free to contact me should you have additional questions. Sincerely, Jeyson Bustamante MD [facility] 11-22-2024 Telephone encounter Note 11/22/2024 INTAKE PENDING(SPOKE WITH PT.)-PER PT. SPOKE WITH FOSTER SEVERAL TIMES AND EVERYTHING SHOULD BE IN HER CHART. 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 PATIENT PHYSICIAN INFORMATION Referring Doctor: Dr.Michael Cano Address: Phone: Manager Interventional: Dr.Michael Cano Address: Phone: PCP: To use this Smartlink, specify the provider ID whose address you want to display, e.g., .PROVADDR[1 (where 1 is the provider ID). PAST TREATMENT Office notes: NONE AVAILABLE Medications: NONE THAT APPLY Pre-Visit Testing STUDY/TEST DATE ORDERED/REQUESTED DATE RECEIVED/COMPLETED ENTIRE PANEL TSH Per pt. Done 08/2024 FREE T4 FREE T3 Imaging Reports: SEE EPIC CD of Images: SEE EPIC FNA: YES 2020 FNA Slides: Has the patient ever had thyroid or parathyroid surgery before: YES PARTIAL THYROIDECTOMY Operative Reports: NONE AVAILABLE Pathology Reports: NONE AVAILABLE [facility] 11-22-2024 Miscellaneous Notes 11/22/2024 INTAKE PENDING(SPOKE WITH PT.)-PER PT. SPOKE WITH FOSTER SEVERAL TIMES AND EVERYTHING SHOULD BE IN HER CHART. 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 PATIENT PHYSICIAN INFORMATION Referring Doctor: Dr.Michael Cano Address: Phone: Manager Interventional: Dr.Michael Cano Address: Phone: PCP: To use this Smartlink, specify the provider ID whose address you want to display, e.g., .PROVADDR[1 (where 1 is the provider ID). PAST TREATMENT Office notes: NONE AVAILABLE Medications: NONE THAT APPLY Pre-Visit Testing STUDY/TEST DATE ORDERED/REQUESTED DATE RECEIVED/COMPLETED ENTIRE PANEL TSH Per pt. Done 08/2024 FREE T4 FREE T3 Imaging Reports: SEE EPIC CD of Images: SEE EPIC FNA: YES 2020 FNA Slides: Has the patient ever had thyroid or parathyroid surgery before: YES PARTIAL THYROIDECTOMY Operative Reports: NONE AVAILABLE Pathology Reports: NONE AVAILABLE documented in this encounter [facility] 10-26-2024 Consult note [facility] 10-26-2024 Consult note [facility] 10-26-2024 Procedure note [facility] 10-26-2024 Procedure note [facility] 10-26-2024 History and physi richard note [facility] 10-26-2024 Note [facility] Medical Records Department [address] [place] [address] History Physical Exam 10/26/24 0931 MR#: [id number] Acct: [id number] Name: SIMA KEEN Rep #: [id number] : 1985 39 From: David Cano MD PCP: ANIBAL Workman Status:[facility] Location: [place] [address] History and Physical Date of Admission: 10/26/24 MR#: [id number] Acct: [id number] Name: SIMA KEEN Rep #: [id number] : 1985 Provider: Dr. David Cano MD Age/Sex: 38/F Location: [facility] Status: Signed Intake Vital Signs 05/13/2309:50 09/02/2407:13 Height 5 ft 7 in 5 ft 7 in BP 102/69 Blood Pressure Location Rt brachial Position Sitting Respiration 17 Pulse 88 Pulse Source Monitor Temp 97.4 F L Temp Source Temporal Pulse Oximetry (%) 99 Oxygen Delivery Method room air Intake Visit Reasons: 1 yr fu Chief Complaint: F/u medication Manager Rn Case Required: No Is patient in pain?: No Allergies cefaclor [From [facility]] Allergy (Verified 09/02/23 08:14) Rash Medications amoxicillin 500 mg tablet 500 mg PO TID 05/05/23 [History Confirmed 09/02/23] multivitamin (Daily Multi-Vitamin tablet) 1 tab PO DAILY 05/05/23 [History Confirmed 09/02/23] PFSH Medical History Acid reflux Alcohol use Asthma Chest pain Gastric reflux Non-smoker Thyroid cancer Thyroid nodule Wears contact lenses Surgical History H/O section History of lobectomy of thyroid Hx of oral surgery Hx of wisdom tooth extraction Family History Grandmother Cancer Thyroid disorder Social History Smoking Status: Never smoker alcohol intake: current alcohol intake frequency: a few times a month HPI HPI HPI: Patient presents for routine surveillance visit following right thyroid lobectomy on 06/23/2021 with postop diagnosis of PTC???follicular variant 1.8 cm. Her last visit was 06/24/2022. In the interim she underwent diagnostic EGD for complaints of reflux and dysphagia. At that time she was diagnosed with eosinophilic esophagitis and prescribed oral budesonide. Fortunately this did result in significant improvement of her symptoms to the point that she states today she is had no swallowing difficulty and no reflux. She is not presently on any antacids. Concerning her thyroid surveillance, she also denies awareness of any new lumps within her neck and reports that her energy level remains good. Below is recapitulated from patient's prior visit for ease of review: She presents with her to today's visit. She denies any new concerns from her neck. She denies any low energy or metabolic concerns. She states she is just interested in following up on her recent results. ROS General General: No weight change, appetite, fatigue, colon cancer, breast cancer or weakness HEENT HEENT: No difficulty swallowing, eye injury, eye surgery, swollen glands or hoarseness Endo Endocrine: No thyroid disease, diabetes mellitus, thyroid cancer, Hair loss, heat intolerance or cold intolerance Skin Skin: No rash or changing moles Breast Breast: No left breast lump, right breast lump, nipple discharge, breast pain, abnormal mammogram, abnormal US or breast enlargement Musc Musculoskeletal: No back problems, arthritis, rheumatoid arthritis, gout or joint pain Cardio Cardiovascular: No murmur, pacemaker, heart disease, atrial fibrillation, high blood pressure, heart attack, heart stent, palpitations, shortness of breat with exertion or chest pain Psych Psychiatric: No depression, anxiety or hearing voices Resp Respiratory: No shortness of breath, No sleep apnea, No cough, No COPD, No asthma, No emphysema and No wheezing Gastro Gastrointestinal: No abdominal pain, No nausea or vomiting, No diarrhea, No constipation, No blood in stool, Yes acid reflux, No hemorrhoids, No ulcers, No gallbladder problem and No black,tarry stools Claude Hematologic: No blood thinners, No blood disorders, No bleeding, No anemia and No blood clots Neuro Neurologic: No system reviewed and no additional complaints, except as documented, No as per HPI, No abnormal gait, No abnormal hearing, No abnormal movements, No abnormal speech, No behavioral changes, No burning sensations, No confusion, No convulsions, No disequilibrium, No dizziness, No localized weakness, No frequent falls, No headache(s), No lack of coordination, No loss of vision, No memory loss, No numbness, No other visual dist (more content not included)... [facility] 10-26-2024 Consult note [facility] 10-26-2024 Telephone encounter Note Indexed referral for Dr. Bustamante for thyroid nodule. Please reach out to patient to schedule. [facility] 10-26-2024 Miscellaneous Notes Indexed referral for Dr. Bustamante for thyroid nodule. Please reach out to patient to schedule. documented in this encounter [facility] 10-21-2024 Radiology Diagnostic study note [facility] Imaging Services [address] [place] [id number] Head/Neck Soft Tissue MR#: [id number] Acct: [id number] Name: SIMA KEEN Rep #: [id number] : 1985 F 39 From: Pet er Peer DO PCP: ANIBAL Workman Status: REG CLI Study:Head/Neck Soft Tissue Date of Exam: 10/20/24 Exam# [id number] Ordering Dr: Toyin Cano MD EXAM: Ultrasound head/neck soft tissue CLINICAL HISTORY: Malignant neoplasm of thyroid status post right thyroid lobectomy. Study is forlymph node mapping. COMPARISON: Ultrasound thyroid of 09/04/2024. TECHNIQUE: Real-time grayscale and color ultrasound of the soft tissues of the right neck and left neck. FINDINGS: 7 lymph nodes are identified in the right and left neck. A zone 2 lymph node measures 2.3 cm length by 2.1 cm x 0.5 cm AP. A zone 3 lymph node measures 1.6 cm length by 0.4 cm x 0.2 cm AP a zone 6 A zone 6 lymph node measures 0.9 x 0.3 x 0.3. Another zone 6 lymph node measures 1.2 0.9 x 0.5 cm. In the left neck, a zone 1 lymph node measures 0.7 x 0.6 x 0.5 cm. This is a lymph node with a round shape. In zone 6, there is a 2.1 cm x 0.5 x 0.4 cm lymph node. Also in zone 6, a 1.0 cm x 0.8 x 0.5 cm lymph node is seen with slightly thickened cortex US/Head/Neck Soft Tissue IMPRESSION: Multiple right and left neck lymph nodes are identified with measurements and location given above. Reading [facility] CC: Dr. David Cano MD; ANIBAL Workman ~ Agricultural Labor [employer] Manager: Signed [facility] 10-04-2024 Evaluation note Diagnosis Onset Date Resolution Thyroid nodule acute September 1:01pm [facility] Work Phone: 1(693) 305-433310-26-2023 History and physical note Author David Cano [facility] May 13, 2023 10:23am Note Date/Time May 13, 2023 1 0:23am [facility] Medical Records Department [address] [place] [address] History & Physical Exam 05/13/23 1020 MR#: [id number] Acct: [id number] Name: SIMA KEEN Rep #:[id number] : 1985 38 From: David Anne PCP: ANIBAL Workman Status:[facility] Location: [place] [address] HPI - General HPI Narrative Patient is a 38-year-old female known to me for a history of thyroid lobectomy related to a diagnosis of thyroid cancer. During her recent follow-up of that diagnosis she indicated that she had something of a globus sensation and has a history of acid reflux. Therefore I recommended we plan for a diagnostic EGD with pH probe placement. Patient was receptive of this recommendation and presents today for this procedure. She denies any other interval issues, but continues to note a feeling of fullness in her throat with swallowing. [facility] Medical History (Updated 05/13/23 @ 10:[address] David Cano MD) Acid reflux Alcohol use Asthma Chest pain Gastric reflux Non-smoker Thyroid cancer Thyroid nodule Wears contact lenses Home Medications amoxicillin 500 mg tablet 500 mg PO TID 05/05/23 [History Last Taken Unknown] multivitamin (Daily Multi-Vitamin tablet) 1 tab PO DAILY 05/05/23 [History Last Taken Unknown] Allergy/AdvReac Type Severity Reaction Status Date / Time cefaclor [From [facility]] Allergy Rash Verified 05/13/23 09:47 Family History Grandmother Cancer Thyroid disorder Surgical History H/O section History of lobectomy of thyroid Hx of oral surgery Hx of wisdom tooth extraction Social History Smoking Status: Never smoker alcohol intake: current alcohol intake frequency: a few times a month Vital Signs Vital Signs Vital Signs: 05/13/23 09:50 05/13/23 09:50 Temperature 98.8 F Temperature Source Temporal Pulse Rate 91 Respiratory Rate 16 Respiratory Pattern Normal Blood Pressure 112/77 Blood Pressure Mean 88 Blood Pressure Source Monitor Blood Pressure Position Semi-Fowlers Blood Pressure Location Left Arm Pulse Ox 100 Oxygen Delivery Method Room Air Weight Weight: 154 lb 5.177 oz Body Mass Index (BMI) 24.1 Physical Exam Const alert, oriented x3 and no apparent distress HEENT HEENT Narrative: Well-healed cervical neck incision without masses or lymphadenopathy. Results Lab / Micro Data Labs: Laboratory Results - last 24 hr 05/13/23 09:07: Urine Test Negative Assessment & Plan Assessment/Plan (1) Acid reflux: (2) Globus sensation: (3) Dysphagia: PLAN: Plan As above, patient is 38-year-old female with a history of thyroid cancer status post thyroid lobectomy who presents with more recent complaints of dysphagia andglobus sensation in a background of acid reflux disease. Therefore I recommended EGD with pH probe placement to more objectively evaluate this situation. Patient presents today for that procedure. Procedure expectations were reviewed and patient denies any further questions. We will proceed to endoscopy suite for EGD as discussed. Charges/Coding Visit Charges Office Visits / Consults: 62515 OV L2 Est 05/13/23 1023 <Electronically signed by David Cano MD> Cosigner Signature (if applicable): CC: Dr. David Cano MD; ANIBAL Workman~ Signed [facility] Work Phone: 1(185) 972-644210-26-2023 Procedure [facility] 05-13-2023 [facility] Note Date/Time October 26, 2024 9:2 4am [facility] Medical Records Department [address] [place] [address] Pre-Anesthesia Evaluation 10/26/24 0917 MR#: [id number] Acct: [id number] Name: SIMA KEEN Rep #:[id number] : 1985 39 From: Elliott Reynaga MD PCP: ANIBAL Workman Status:[facility] Race: [facility] Location: [place] [address] ASA Classification* ASA Classification ASA Classification: 2 Assessment & Plan Anesthesia* Anesthesia Assessment Anesthesia Assessment: Discussed sedation and/or anesthesia options, risks, benefits, and alternatives with patient/parents/legal guardian/POA. Questions invited. The patient/parents/legal guardian/POA seems to understand and agrees to proceedwith anesthesia plan. Reviewed the physical assessment, medical history, allergy history and patient home medications list prior to surgery/procedure/anesthetic and documented any changes. Performed airway and anesthesia risk assessments. Anesthesia Type Anesthesia Type: MAC History Source History Obtained from:: Patient and Chart Anesthesia Focused Assessment* Temperature: 98.2 F Pulse Rate: 92 Blood Pressure: 111/78 Respiratory Rate: 16 Pulse Ox: 99 Airway Assessment Mouth opens: >3 cm Mallampati Score: I Teeth Condition: Loose (Patient has a loose upper tooth #10. Rest are tight.) Neck Range of motion (ROM): Full ROM Focused Labs Anesthesia Preop lab: CBC CHEMISTRY TSH 2.33 uIU/mL (0.358-3.74) 04/21/23 13:27 COAG Urine Test Negative Negative 12/09/23 09:31 12/09/23 Pre-Assessment Diagnosis/Proposed Procedure Planned Operative Procedure(s): Esophagogastroduodenoscopy. 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 When Was Last Pacemaker Check QUESTION #4 FULL TEXT: You/Your Family Experience fever (hyperthermia) with Anesthesia Last Oral Intake Last Oral intake: Last Oral Intake NPO since 23:00 10/26/24 08:53 Meds taken in AM with sips of No 10/26/24 08:53 water? Meds patient instructed to take am of surgery PONV PONV - electro optical engineer: PONV - electro optical engineer Female Yes 10/23/24 08:58 HX of Motion Sickness No 10/23/24 08:58 HX of N/V After Surgery No 10/23/24 08:58 Non-Smoker Yes 10/23/24 08:58 Duration of Surgery greater No 10/23/24 08:58 than 60 minutes Number of Risk Factors 2 10/23/24 08:58 PONV Score Moderate Risk 10/23/24 08:58 Height & Weight Height & Weight: Anesthesia: Height & Weight Height 5 ft 7 in 10/26/24 08:53 Weight: 72.03 kg 10/26/24 08:53 Body Mass Index (BMI) 24.8 10/26/24 08:53 Respiratory Assessment Respiratory Assessment - electro optical engineer: Respiratory Tract Infection Hx - electro optical engineer Hx Respiratory Tract Infection No 10/23/24 08:58 STOP Sleep Apnea STOP Sleep Apnea - electro optical engineer: STOP Sleep Apnea - electro optical engineer Hx Hypertension No 10/23/24 08:58 Hx Sleep Apnea No 10/23/24 08:58 CPAP No 10/23/24 08:58 BIPAP Do you snore loudly (louder No 10/23/24 08:58 than talking or can be heard Do you often feel tired/ No 10/23/24 08:58 fatigued/ sleepy during daytime? Has anyone observed you stop No 10/23/24 08:58 breathing during sleep? STOP Results Negative 10/23/24 08:58 QUESTION #5 FULL TEXT : Do you snore loudly (louder than talking or can be heard through closed doors)? 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 Specify any problems Hx of Preganancy in last 3 No 10/23/24 08:58 Months Nurse Filling Out Transfusion VCHRISTIN 10/23/24 08:58 & Questions: Date: 10/23/24 10/23/24 08:58 Time: 08:59 10/23/24 08:58 Patient unable to answer at this time (ie. confused, unrespo /Reproduction History /Reproductive History - electro optical engineer: /Reproductive Hx- electro optical engineer Hx Now No 10/23/24 08:58 Gestational Age (in weeks): EDC: Hx Hx Para Hx Section SAB No 10/23/24 08:58 PFSH Medical History Thyroid cancer Wears contact lenses Alcohol use Gastric reflux Asthma Non-smoker Chest pain Thyroid nodule Acid reflux Home Medications ?Medication ?Instructions ?Recorded ?Last Taken ?Type multivitamin (Daily Multi-Vitamin 1 tab PO DAILY 05/0510/23/24 History tablet) hydroxyzine HCl 25 mg tablet 25 mg PO BID PRN anxiety 10/04/24 10/25/24 History calcium carbonate (Tums) 200 mg PO DAILY PRN dyspepsi a 10/26/24 Unknown History Allergy/AdvReac Type Severity Reaction Status Date / Time cefaclor (From Ceclor) Allergy Rash Verified 10/26/24 08:50 Family History Grandmother Cancer Thyroid disorder Surgical History History of esophagogastroduodenoscopy (EGD) History of lobectomy of thyroid Hx of oral surgery Hx of wisdom tooth extraction H/O section Social History Smoking Status: Never smoker alcohol intake: current alcohol intake frequency: a few times a month Review of Systems (Anesthesia) ROS Narrative System reviewed and no additional complaints, except as documented. 10/26/[address]23 <Electronically signed by Elliott hart MD> Date _ Elliott Reynaga MD Cosigner Signature: Date CC: ~ Signed [facility] Work Phone: Consult note Author ANDERSON Gomez [facility] Note Date/Time October 26, 2024 10: 30am [facility] Medical Records Department [address] [place] [address] Anesthesia Postop Eval I 10/26/24 1029 MR#: [id number] Acct: [id number] Name: SIMA KEEN Rep #:[id number] : 1985 39 From: Vince Gomez PCP: ANIBAL Workman Status:[facility] Y Race: [facility] Location: [place] [address] Anesthesia: Postop Eval I Current Vital Signs Temperature: 97.9 F Pulse Rate: 79 Blood Pressure: 99/54 Respiratory Rate: 16 Pulse Ox: 97 Oxygen Delivery Method: Room Air Assessment Airway patent: Yes Spontaneous unlabored respirations: Yes Mental status: Awake and Calm nausea: No Vomiting: No Anesthesia Complication: No Fluid Hydration Crystalloid volume administer (ml): 75 Total IV fluid infused: 75 Progress Note Anesthesia document: Postop Eval 1 completed: Yes 10/26/24 1030 <Electronically signed by Vince Gomez > Date _ Vince Gomez Cosigner Signature: Date CC: ~ Signed [facility] Work Phone: Consult note Author Elliott [facility] Note Date/Time October 26, 2024 10: 52am [facility] Medical Records Department [address] [place] [id number] Anesthesia Postop Eval II 10/26/24 1051 MR#: [id number] Acct: [id number] Name: SIMA KEEN Rep #:[id number] : 1985 39 From: Elliott Reynaga MD PCP: ANIBAL Workman Status:[facility] Race: [facility] Location: [place] [address] Anesthesia Postop Eval I Sum Postop Eval Completion status Anesthesia document: Postop Eval 1 completed: Yes Anesthesia Postop Eval I Summary Anesthesia Postop Eval I Summary: Anesthesia Postop Eval I: Assessment Summary Airway patent Yes 10/26/24 10:30 [email or web address] Spontaneous unlabored Yes 10/26/24 10:30 [email or web address] respirations Mental status Awake,Calm 10/26/24 10:30 [email or web address] nausea No 10/26/24 10:30 [email or web address] Vomiting No 10/26/24 10:30 [email or web address] Anesthesia Postop Eval I: Fluid Summary Crystalloid volume administer 75 10/26/24 10:30 [email or web address] (ml) Colloids volume administered ( ml) Blood Product volume administered (ml) Total IV fluid infused 75 10/26/24 10:30 [email or web address] Anesthesia Postop Eval I: Summary Notes Anesthesia Complication No 10/26/24 10:30 [email or web address] Anesthesia Complication Comment: Post-operative progress note Anesthesia: Postop Eval II Evaluation Mental status: Awake and Calm Pain Level: 0 nausea: No Vomiting: No Complications Anesthesia Complication: No 10/26/24 1052 <Electronically signed by Elliott hart MD> Date _ Elliott Reynaga MD Cosigner Signature: Date CC: ~ Signed [facility] Work Phone: Evaluation note* Diagnosis Onset Date Resolution Status Acid reflux acute Dysphagia acute Globus sensation acute [facility] Work Phone: Evaluation note* Diagnosis Malignant neoplasm of thyroid gland (HCC)- Primary Malignant neoplasm of thyroid gland Papillary carcinoma of thyroid (HCC) Malignant neoplasm of thyroid gland [facility] Diagnosis Esophagitis- Primary Esophagitis, unspecified Papillary carcinoma of thyroid (HCC) Malignant neoplasm of thyroid gland PONV (postoperative nausea and vomiting) Nausea with vomiting Anxiety Anxiety state, unspecified History of lobectomy of thyroid Papillary carcinoma of thyroid (HCC) Malignant neoplasm of thyroid gland * Assessment & Plan Note - Dina Najera APRN.ENVIRONMENTAL COMPLIANCE TECHNICIAN - 01/02/2025 10:21 AM EDTAssociated Problem(s): Esophagitis Currently on BUDESONIDE States stables and controlled * Assessment & Plan Note - Dina Najera APRN.CNP - 01/02/2025 10:15 AM EDTAssociated Problem(s): History of lobectomy of thyroid History of thyroid cancer S/P right thyroid lobectomy 2020 No longer on medication * Assessment & Plan Note - Dina Najera APRN.CNP - 01/02/2025 10:13 AM EDTAssociated Problem(s): Anxiety Currently on hydrOXYzine HCl (ATARAX) Followed by PCP States stables and controlled * Assessment & Plan Note - Dina Najera APRN.CNP - 01/02/2025 10:08 AM EDTAssociated Problem(s): PONV (postoperative nausea and vomiting) [facility] reported [facility] Diagnosis Esophagitis- Primary Esophagitis, unspecified Papillary carcinoma of thyroid (HCC) Malignant neoplasm of thyroid gland PONV (postoperative nausea and vomiting) Nausea with vomiting Anxiety Anxiety state, unspecified History of lobectomy of thyroid Papillary carcinoma of thyroid (HCC)- Primary Malignant neoplasm of thyroid gland [facility] Diagnosis Esophagitis- Primary Esophagitis, unspecified Papillary carcinoma of thyroid (HCC) Malignant neoplasm of thyroid gland PONV (postoperative nausea and vomiting) Nausea with vomiting Anxiety Anxiety state, unspecified History of lobectomy of thyroid Malignant neoplasm of thyroid gland (HCC)- Primary Malignant neoplasm of thyroid gland [facility] Diagnosis Esophagitis- Primary Esophagitis, unspecified Papillary carcinoma of thyroid (HCC) Malignant neoplasm of thyroid gland PONV (postoperative nausea and vomiting) Nausea with vomiting Anxiety Anxiety state, unspecified History of lobectomy of thyroid Malignant neoplasm of thyroid gland (HCC) Malignant neoplasm of thyroid gland [facility] Author David Cano [facility] Note Date/Time October 26, 2024 9:3 2am [facility] Medical Records Department [address] [place] [address] History & Physical Exam 10/26/24 0931 MR#: [id number] Acct: [id number] Name: LEONILASIMA ROEL Rep #:[id number] : 1985 39 From: David Anne PCP: ANIBAL Workman Status:[facility] Location: [place] [id number] History and Physical Date of Admission: 10/26/24 MR#: [id number] Acct: [id number] Name: SIMA KEEN ROEL Rep #: [id number] : 1985 Provider: Dr. David Cano MD Age/Sex: 38/F Location: [facility] Status: Signed Intake Vital Signs 05/13/2309:50 09/02/2407:13 Height 5 ft 7 in 5 ft 7 in BP 102/69 Blood Pressure Location Rt brachial Position Sitting Respiration 17 Pulse 88 Pulse Source Monitor Temp 97.4 F L Temp Source Temporal Pulse Oximetry (%) 99 Oxygen Delivery Method room air Intake Visit Reasons: 1 yr fu Chief Complaint: F/u medication Manager Rn Case Required: No Is patient in pain?: No Allergies cefaclor [From Ceclor] Allergy (Verified 09/02/23 08:14) Rash Medications amoxicillin 500 mg tablet 500 mg PO TID 05/05/23 [History Confirmed 09/02/23] multivitamin (Daily Multi-Vitamin tablet) 1 tab PO DAILY 05/05/23 [History Confirmed 09/02/23] PFSH Medical History Acid reflux Alcohol use Asthma Chest pain Gastric reflux Non-smoker Thyroid cancer Thyroid nodule Wears contact lenses Surgical History H/O section History of lobectomy of thyroid Hx of oral surgery Hx of wisdom tooth extraction Family History Grandmother Cancer Thyroid disorder Social History Smoking Status: Never smoker alcohol intake: current alcohol intake frequency: a few times a month HPI HPI HPI: Patient presents for routine surveillance visit following right thyroid lobectomy on 06/23/2021 with postop diagnosis of PTC?follicular variant 1.8 cm. Her last visit was 06/24/2022. In the interim she underwent diagnostic EGD for complaints of reflux and dysphagia. At that time she was diagnosed with eosinophilic esophagitis and prescribed oral budesonide. Fortunately this did result in significant improvement of her symptoms to the point that she states today she is had no swallowing difficulty and no reflux. She is not presently onany antacids. Concerning her thyroid surveillance, she also denies awareness ofany new lumps within her neck and reports that her energy level remains good. Below is recapitulated from patient's prior visit for ease of review: She presents with her to today's visit. She denies any new concerns from her neck. She denies any low energy or metabolic concerns. She states sheis just interested in following up on her recent results. ROS General General: No weight change, appetite, fatigue, colon cancer, breast cancer or weakness HEENT HEENT: No difficulty swallowing, eye injury, eye surgery, swollen glands or hoarseness Endo Endocrine: No thyroid disease, diabetes mellitus, thyroid cancer, Hair loss, heat intolerance or cold intolerance Skin Skin: No rash or changing moles Breast Breast: No left breast lump, right breast lump, nipple discharge, breast pain, abnormal mammogram, abnormal US or breast enlargement Musc Musculoskeletal: No back problems, arthritis, rheumatoid arthritis, gout or joint pain Cardio Cardiovascular: No murmur, pacemaker, heart disease, atrial fibrillation, high blood pressure, heart attack, heart stent, palpitations, shortness of breat withexertion or chest pain Psych Psychiatric: No depression, anxiety or hearing voices Resp Respiratory: No shortness of breath, No sleep apnea, No cough, No COPD, No asthma, No emphysema and No wheezing Gastro Gastrointestinal: No abdominal pain, No nausea or vomiting, No diarrhea, No constipation, No blood in stool, Yes acid reflux, No hemorrhoids, No ulcers, No gallbladder problem and No black,tarry stools Claude Hematologic: No blood thinners, No blood disorders, No bleeding, No anemia and No blood clots Neuro Neurologic: No system reviewed and no additional complaints, except as documented, No as per HPI, No abnormal gait, No abnormal hearing, No abnormal movements, No abnormal speech, No behavioral changes, No burning sensations, No confusion, No convulsions, No disequilibrium, No dizziness, No localized weakness, No frequent falls, No headache(s), No lack of coordination, No loss ofvision, No memory loss, No numbness, No other visual disturbances, No radicular pain, No restless legs, No sensory deficit, No syncope, No tingling, No tremor(s), No weakness and No other Exam Const General: cooperative Orientation: alert, awake and oriented x3 Neck Other: Well-healed transverse cervical incision without any underlying nodularity. No lymphadenopathy appreciated. Assessment and Plan Assessment and Plan (1) Eosinophilic esophagitis: Status: Acute Comment: Patient states that all of her symptoms resolved as of eosinophilic esophagitis are now gone. I have informed her that some guidelines would suggest she needs a repeat EGD with biopsy to confirm and a microscopic level that this issue is fully resolved. She expresses that she understands this but wishes to simply keep watch of her symptoms and pursue follow-up endoscopy if there is a recurrence of symptoms. Plan: ? Watchful waiting for now per patient's preference. She will notify us if she has any recurrence of symptoms (2) Dysphagia: Status: Acute Comment: Resolved (3) Thyroid cancer: Status: Acute Comment: 36-year-old female status post right thyroid lobectomy with isthmusectomy 06/23/2021 for a sonographically?suspicious right thyroid nodule. 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 Theadditional thyroid cancer summary findings were also reviewed and are favorable with no evidence of lymph node metastasis, lymphatic invasion, angioinvasion andthe margins were clear. Greatest diameter on the tumor was 1.8 cm. This suggest this is a low risk thyroid cancer. She returns today for a 6-month surveillance visit. She, again, denies any new developments. Again, there are no suspicious findings with clinical exam. We reviewed both her thyroid functions (which were normal) and her surveillance thyroid ultrasound from 06/19/2022. This latter study showed a benign-appearing 3 mm cystic nodule of the left thyroid lobe. No other additional suspicious lymph nodes were noted. Taken alongside her reassuring physical exam I have recommended ongoing surveillance. Would plan for follow-up thyroid functions, surveillance thyroid ultrasound, and clinic visit in 12 months. Patient is now 38 years old and presents for yearly surveillance of her thyroid cancer. Her exam is completely benign and she denies any concerning symptoms. I have recommended that we continue follow-up for 5 years postoperatively to surveilled her for any recurrences. She is happy with this plan Plan: ? Follow-up clinic visit in 1 year (patient placed in the recall system) I have examined the patient the following changes are noted: Patient confirms that she has ongoing swallowing difficulty even when she is not necessarily ingesting things. She states that this is more prevalent in the mornings. As can be noted from subsequent encounters in the EMR patient is being actively investigated for recurrent thyroid cancer after finding nodularity in her right thyroid bed. She is being referred to [facility] for further evaluation of this issue and has been informed that this certainly could be contributing to her symptoms. Yet given her history of eosinophilic esophagitiswithout follow-up endoscopy I recommended follow-up EGD with biopsy. She is prepared undergo this procedure today. Expectations were reviewed and all questions answered. Proceed to endoscopy suite as planned. 10/26/24 09 <Electronically signed by David Cano MD> Cosigner Signature (if applicable): CC: Dr. David Cano MD; ANIBAL Workman~ Signed [facility] Work Phone: Reason for referral (narrative)No reason for referral information availableWWayne [facility] Work Phone: Summary Purpose Family History No Family History Records Found Relationship Condition Age at Onset Recorded Date/T jenna grandmother Malignant neoplasm Unknown Disorder of thyroid Unknown Breast Cancer Status:Active Comments:Paterna l Grandmother. Cancer Status:Active Comments:Materna l Grandfather. Cerebrovascular Accident Status:Active Comment s:Paternal Grandfather. Maternal Grandmother. Colon Cancer Status:Active Comments:Materna l Grandmother. Paternal Aunt. Coronary Artery Disease Status:Active Comments :Maternal Grandmother. Diabetes Mellitus Type II Status:Active Commen ts:Maternal Grandfather. Hypertension Status:Active Comments:Materna l Grandmother. Hypothyroidism Status:Active Comments:Materna l Grandmother. Mother. leukemia Status:Active Comments:Paterna l Grandmother. Lymphoma Status:Active Comments:Father. B-Cell Lymphoma Osteoarthritis Status:Active Comments:Materna l Grandfather. Maternal Grandmother. Prostate Cancer Status:Active Comments:Materna l Grandfather. and bone cancer Skin Cancer Status:Active Comments:Mother. Uterine Cancer Status:Active Comments:Materna l Grandmother. Breast Cancer Status:Active Comments:Paterna l Grandmother. Cancer Status:Active Comments:Materna l Grandfather. Cerebrovascular Accident Status:Active Comment s:Paternal Grandfather. Maternal Grandmother. Colon Cancer Status:Active Comments:Materna l Grandmother. Paternal Aunt. Coronary Artery Disease Status:Active Comments :Maternal Grandmother. Diabetes Mellitus Type II Status:Active Commen ts:Maternal Grandfather. Hypertension Status:Active Comments:Materna l Grandmother. Hypothyroidism Status:Active Comments:Materna l Grandmother. Mother. leukemia Status:Active Comments:Paterna l Grandmother. Lymphoma Status:Active Comments:Father. B-Cell Lymphoma Osteoarthritis Status:Active Comments:Materna l Grandfather. Maternal Grandmother. Prostate Cancer Status:Active Comments:Materna l Grandfather. and bone cancer Skin Cancer Status:Active Comments:Mother. Uterine Cancer Status:Active Comments:Materna l Grandmother. Breast Cancer Status:Active Comments:Paterna l Grandmother. Cancer Status:Active Comments:Materna l Grandfather. Cerebrovascular Accident Status:Active Comment s:Paternal Grandfather. Maternal Grandmother. Colon Cancer Status:Active Comments:Materna l Grandmother. Paternal Aunt. Coronary Artery Disease Status:Active Comments :Maternal Grandmother. Diabetes Mellitus Type II Status:Active Commen ts:Maternal Grandfather. Hypertension Status:Active Comments:Materna l Grandmother. Hypothyroidism Status:Active Comments:Materna l Grandmother. Mother. leukemia Status:Active Comments:Paterna l Grandmother. Lymphoma Status:Active Comments:Father. B-Cell Lymphoma Osteoarthritis Status:Active Comments:Materna l Grandfather. Maternal Grandmother. Prostate Cancer Status:Active Comments:Materna l Grandfather. and bone cancer Skin Cancer Status:Active Comments:Mother. Uterine Cancer Status:Active Comments:Materna l Grandmother. Breast Cancer Status:Active Comments:Paterna l Grandmother. Cancer Status:Active Comments:Materna l Grandfather. Cerebrovascular Accident Status:Active Comment s:Paternal Grandfather. Maternal Grandmother. Colon Cancer Status:Active Comments:Materna l Grandmother. Paternal Aunt. Coronary Artery Disease Status:Active Comments :Maternal Grandmother. Diabetes Mellitus Type II Status:Active Commen ts:Maternal Grandfather. Hypertension Status:Active Comments:Materna l Grandmother. Hypothyroidism Status:Active Comments:Materna l Grandmother. Mother. leukemia Status:Active Comments:Paterna l Grandmother. Lymphoma Status:Active Comments:Father. B-Cell Lymphoma Osteoarthritis Status:Active Comments:Materna l Grandfather. Maternal Grandmother. Prostate Cancer Status:Active Comments:Materna l Grandfather. and bone cancer Skin Cancer Status:Active Comments:Mother. Uterine Cancer Status:Active Comments:Materna l Grandmother. Breast Cancer Status:Active Comments:Paterna l Grandmother. Cancer Status:Active Comments:Materna l Grandfather. Cerebrovascular Accident Status:Active Comment s:Paternal Grandfather. Maternal Grandmother. Colon Cancer Status:Active Comments:Materna l Grandmother. Paternal Aunt. Coronary Artery Disease Status:Active Comments :Maternal Grandmother. Diabetes Mellitus Type II Status:Active Commen ts:Maternal Grandfather. Hypertension Status:Active Comments:Materna l Grandmother. Hypothyroidism Status:Active Comments:Materna l Grandmother. Mother. leukemia Status:Active Comments:Paterna l Grandmother. Lymphoma Status:Active Comments:Father. B-Cell Lymphoma Osteoarthritis Status:Active Comments:Materna l Grandfather. Maternal Grandmother. Prostate Cancer Status:Active Comments:Materna l Grandfather. and bone cancer Skin Cancer Status:Active Comments:Mother. Uterine Cancer Status:Active Comments:Materna l Grandmother. Breast Cancer Status:Active Comments:Paterna l Grandmother. Cancer Status:Active Comments:Materna l Grandfather. Cerebrovascular Accident Status:Active Comment s:Paternal Grandfather. Maternal Grandmother. Colon Cancer Status:Active Comments:Materna l Grandmother. Paternal Aunt. Coronary Artery Disease Status:Active Comments :Maternal Grandmother. Diabetes Mellitus Type II Status:Active Commen ts:Maternal Grandfather. Hypertension Status:Active Comments:Materna l Grandmother. Hypothyroidism Status:Active Comments:Materna l Grandmother. Mother. leukemia Status:Active Comments:Paterna l Grandmother. Lymphoma Status:Active Comments:Father. B-Cell Lymphoma Osteoarthritis Status:Active Comments:Materna l Grandfather. Maternal Grandmother. Prostate Cancer Status:Active Comments:Materna l Grandfather. and bone cancer Skin Cancer Status:Active Comments:Mother. Uterine Cancer Status:Active Comments:Materna l Grandmother. Breast Cancer Status:Active Comments:Paterna l Grandmother. Cancer Status:Active Comments:Materna l Grandfather. Cerebrovascular Accident Status:Active Comment s:Paternal Grandfather. Maternal Grandmother. Colon Cancer Status:Active Comments:Materna l Grandmother. Paternal Aunt. Coronary Artery Disease Status:Active Comments :Maternal Grandmother. Diabetes Mellitus Type II Status:Active Commen ts:Maternal Grandfather. Hypertension Status:Active Comments:Materna l Grandmother. Hypothyroidism Status:Active Comments:Materna l Grandmother. Mother. leukemia Status:Active Comments:Paterna l Grandmother. Lymphoma Status:Active Comments:Father. B-Cell Lymphoma Osteoarthritis Status:Active Comments:Materna l Grandfather. Maternal Grandmother. Prostate Cancer Status:Active Comments:Materna l Grandfather. and bone cancer Skin Cancer Status:Active Comments:Mother. Uterine Cancer Status:Active Comments:Materna l Grandmother. Breast Cancer Status:Active Comments:Paterna l Grandmother. Cancer Status:Active Comments:Materna l Grandfather. Cerebrovascular Accident Status:Active Comment s:Paternal Grandfather. Maternal Grandmother. Colon Cancer Status:Active Comments:Materna l Grandmother. Paternal Aunt. Coronary Artery Disease Status:Active Comments :Maternal Grandmother. Diabetes Mellitus Type II Status:Active Commen ts:Maternal Grandfather. Hypertension Status:Active Comments:Materna l Grandmother. Hypothyroidism Status:Active Comments:Materna l Grandmother. Mother. leukemia Status:Active Comments:Paterna l Grandmother. Lymphoma Status:Active Comments:Father. B-Cell Lymphoma Osteoarthritis Status:Active Comments:Materna l Grandfather. Maternal Grandmother. Prostate Cancer Status:Active Comments:Materna l Grandfather. and bone cancer Skin Cancer Status:Active Comments:Mother. Uterine Cancer Status:Active Comments:Materna l Grandmother. Breast Cancer Status:Active Comments:Paterna l Grandmother. Cancer Status:Active Comments:Materna l Grandfather. Cerebrovascular Accident Status:Active Comment s:Paternal Grandfather. Maternal Grandmother. Colon Cancer Status:Active Comments:Materna l Grandmother. Paternal Aunt. Coronary Artery Disease Status:Active Comments :Maternal Grandmother. Diabetes Mellitus Type II Status:Active Commen ts:Maternal Grandfather. Hypertension Status:Active Comments:Materna l Grandmother. Hypothyroidism Status:Active Comments:Materna l Grandmother. Mother. leukemia Status:Active Comments:Paterna l Grandmother. Lymphoma Status:Active Comments:Father. B-Cell Lymphoma Osteoarthritis Status:Active Comments:Materna l Grandfather. Maternal Grandmother. Prostate Cancer Status:Active Comments:Materna l Grandfather. and bone cancer Skin Cancer Status:Active Comments:Mother. Uterine Cancer Status:Active Comments:Materna l Grandmother. Breast Cancer Status:Active Comments:Paterna l Grandmother. Cancer Status:Active Comments:Materna l Grandfather. Cerebrovascular Accident Status:Active Comment s:Paternal Grandfather. Maternal Grandmother. Colon Cancer Status:Active Comments:Materna l Grandmother. Paternal Aunt. Coronary Artery Disease Status:Active Comments :Maternal Grandmother. Diabetes Mellitus Type II Status:Active Commen ts:Maternal Grandfather. Hypertension Status:Active Comments:Materna l Grandmother. Hypothyroidism Status:Active Comments:Materna l Grandmother. Mother. leukemia Status:Active Comments:Paterna l Grandmother. Lymphoma Status:Active Comments:Father. B-Cell Lymphoma Osteoarthritis Status:Active Comments:Materna l Grandfather. Maternal Grandmother. Prostate Cancer Status:Active Comments:Materna l Grandfather. and bone cancer Skin Cancer Status:Active Comments:Mother. Uterine Cancer Status:Active Comments:Materna l Grandmother. Breast Cancer Status:Active Comments:Paterna l Grandmother. Cancer Status:Active Comments:Materna l Grandfather. Cerebrovascular Accident Status:Active Comment s:Paternal Grandfather. Maternal Grandmother. Colon Cancer Status:Active Comments:Materna l Grandmother. Paternal Aunt. Coronary Artery Disease Status:Active Comments :Maternal Grandmother. Diabetes Mellitus Type II Status:Active Commen ts:Maternal Grandfather. Hypertension Status:Active Comments:Materna l Grandmother. Hypothyroidism Status:Active Comments:Materna l Grandmother. Mother. leukemia Status:Active Comments:Paterna l Grandmother. Lymphoma Status:Active Comments:Father. B-Cell Lymphoma Osteoarthritis Status:Active Comments:Materna l Grandfather. Maternal Grandmother. Prostate Cancer Status:Active Comments:Materna l Grandfather. and bone cancer Skin Cancer Status:Active Comments:Mother. Uterine Cancer Status:Active Comments:Materna l Grandmother. Breast Cancer Status:Active Comments:Paterna l Grandmother. Cancer Status:Active Comments:Materna l Grandfather. Cerebrovascular Accident Status:Active Comment s:Paternal Grandfather. Maternal Grandmother. Colon Cancer Status:Active Comments:Materna l Grandmother. Paternal Aunt. Coronary Artery Disease Status:Active Comments :Maternal Grandmother. Diabetes Mellitus Type II Status:Active Commen ts:Maternal Grandfather. Hypertension Status:Active Comments:Materna l Grandmother. Hypothyroidism Status:Active Comments:Materna l Grandmother. Mother. leukemia Status:Active Comments:Paterna l Grandmother. Lymphoma Status:Active Comments:Father. B-Cell Lymphoma Osteoarthritis Status:Active Comments:Materna l Grandfather. Maternal Grandmother. Prostate Cancer Status:Active Comments:Materna l Grandfather. and bone cancer Skin Cancer Status:Active Comments:Mother. Uterine Cancer Status:Active Comments:Materna l Grandmother. Breast Cancer Status:Active Comments:Paterna l Grandmother. Cancer Status:Active Comments:Materna l Grandfather. Cerebrovascular Accident Status:Active Comment s:Paternal Grandfather. Maternal Grandmother. Colon Cancer Status:Active Comments:Materna l Grandmother. Paternal Aunt. Coronary Artery Disease Status:Active Comments :Maternal Grandmother. Diabetes Mellitus Type II Status:Active Commen ts:Maternal Grandfather. Hypertension Status:Active Comments:Materna l Grandmother. Hypothyroidism Status:Active Comments:Materna l Grandmother. Mother. leukemia Status:Active Comments:Paterna l Grandmother. Lymphoma Status:Active Comments:Father. B-Cell Lymphoma Osteoarthritis Status:Active Comments:Materna l Grandfather. Maternal Grandmother. Prostate Cancer Status:Active Comments:Materna l Grandfather. and bone cancer Skin Cancer Status:Active Comments:Mother. Uterine Cancer Status:Active Comments:Materna l Grandmother. Breast Cancer Status:Active Comments:Paterna l Grandmother. Cancer Status:Active Comments:Materna l Grandfather. Cerebrovascular Accident Status:Active Comment s:Paternal Grandfather. Maternal Grandmother. Colon Cancer Status:Active Comments:Materna l Grandmother. Paternal Aunt. Coronary Artery Disease Status:Active Comments :Maternal Grandmother. Diabetes Mellitus Type II Status:Active Commen ts:Maternal Grandfather. Hypertension Status:Active Comments:Materna l Grandmother. Hypothyroidism Status:Active Comments:Materna l Grandmother. Mother. leukemia Status:Active Comments:Paterna l Grandmother. Lymphoma Status:Active Comments:Father. B-Cell Lymphoma Osteoarthritis Status:Active Comments:Materna l Grandfather. Maternal Grandmother. Prostate Cancer Status:Active Comments:Materna l Grandfather. and bone cancer Skin Cancer Status:Active Comments:Mother. Uterine Cancer Status:Active Comments:Materna l Grandmother. Breast Cancer Status:Active Comments:Paterna l Grandmother. Cancer Status:Active Comments:Materna l Grandfather. Cerebrovascular Accident Status:Active Comment s:Paternal Grandfather. Maternal Grandmother. Colon Cancer Status:Active Comments:Materna l Grandmother. Paternal Aunt. Coronary Artery Disease Status:Active Comments :Maternal Grandmother. Diabetes Mellitus Type II Status:Active Commen ts:Maternal Grandfather. Hypertension Status:Active Comments:Materna l Grandmother. Hypothyroidism Status:Active Comments:Materna l Grandmother. Mother. leukemia Status:Active Comments:Paterna l Grandmother. Lymphoma Status:Active Comments:Father. B-Cell Lymphoma Osteoarthritis Status:Active Comments:Materna l Grandfather. Maternal Grandmother. Prostate Cancer Status:Active Comments:Materna l Grandfather. and bone cancer Skin Cancer Status:Active Comments:Mother. Uterine Cancer Status:Active Comments:Materna l Grandmother. Breast Cancer Status:Active Comments:Paterna l Grandmother. Cancer Status:Active Comments:Materna l Grandfather. Cerebrovascular Accident Status:Active Comment s:Paternal Grandfather. Maternal Grandmother. Colon Cancer Status:Active Comments:Materna l Grandmother. Paternal Aunt. Coronary Artery Disease Status:Active Comments :Maternal Grandmother. Diabetes Mellitus Type II Status:Active Commen ts:Maternal Grandfather. Hypertension Status:Active Comments:Materna l Grandmother. Hypothyroidism Status:Active Comments:Materna l Grandmother. Mother. leukemia Status:Active Comments:Paterna l Grandmother. Lymphoma Status:Active Comments:Father. B-Cell Lymphoma Osteoarthritis Status:Active Comments:Materna l Grandfather. Maternal Grandmother. Prostate Cancer Status:Active Comments:Materna l Grandfather. and bone cancer Skin Cancer Status:Active Comments:Mother. Uterine Cancer Status:Active Comments:Materna l Grandmother. Breast Cancer Status:Active Comments:Paterna l Grandmother. Cancer Status:Active Comments:Materna l Grandfather. Cerebrovascular Accident Status:Active Comment s:Paternal Grandfather. Maternal Grandmother. Colon Cancer Status:Active Comments:Materna l Grandmother. Paternal Aunt. Coronary Artery Disease Status:Active Comments :Maternal Grandmother. Diabetes Mellitus Type II Status:Active Commen ts:Maternal Grandfather. Hypertension Status:Active Comments:Materna l Grandmother. Hypothyroidism Status:Active Comments:Materna l Grandmother. Mother. leukemia Status:Active Comments:Paterna l Grandmother. Lymphoma Status:Active Comments:Father. B-Cell Lymphoma Osteoarthritis Status:Active Comments:Materna l Grandfather. Maternal Grandmother. Prostate Cancer Status:Active Comments:Materna l Grandfather. and bone cancer Skin Cancer Status:Active Comments:Mother. Uterine Cancer Status:Active Comments:Materna l Grandmother. Breast Cancer Status:Active Comments:Paterna l Grandmother. Cancer Status:Active Comments:Materna l Grandfather. Cerebrovascular Accident Status:Active Comment s:Paternal Grandfather. Maternal Grandmother. Colon Cancer Status:Active Comments:Materna l Grandmother. Paternal Aunt. Coronary Artery Disease Status:Active Comments :Maternal Grandmother. Diabetes Mellitus Type II Status:Active Commen ts:Maternal Grandfather. Hypertension Status:Active Comments:Materna l Grandmother. Hypothyroidism Status:Active Comments:Materna l Grandmother. Mother. leukemia Status:Active Comments:Paterna l Grandmother. Lymphoma Status:Active Comments:Father. B-Cell Lymphoma Osteoarthritis Status:Active Comments:Materna l Grandfather. Maternal Grandmother. Prostate Cancer Status:Active Comments:Materna l Grandfather. and bone cancer Skin Cancer Status:Active Comments:Mother. Uterine Cancer Status:Active Comments:Materna l Grandmother. Breast Cancer Status:Active Comments:Paterna l Grandmother. Cancer Status:Active Comments:Materna l Grandfather. Cerebrovascular Accident Status:Active Comment s:Paternal Grandfather. Maternal Grandmother. Colon Cancer Status:Active Comments:Materna l Grandmother. Paternal Aunt. Coronary Artery Disease Status:Active Comments :Maternal Grandmother. Diabetes Mellitus Type II Status:Active Commen ts:Maternal Grandfather. Hypertension Status:Active Comments:Materna l Grandmother. Hypothyroidism Status:Active Comments:Materna l Grandmother. Mother. leukemia Status:Active Comments:Paterna l Grandmother. Lymphoma Status:Active Comments:Father. B-Cell Lymphoma Osteoarthritis Status:Active Comments:Materna l Grandfather. Maternal Grandmother. Prostate Cancer Status:Active Comments:Materna l Grandfather. and bone cancer Skin Cancer Status:Active Comments:Mother. Uterine Cancer Status:Active Comments:Materna l Grandmother. Breast Cancer Status:Active Comments:Paterna l Grandmother. Cancer Status:Active Comments:Materna l Grandfather. Cerebrovascular Accident Status:Active Comment s:Paternal Grandfather. Maternal Grandmother. Colon Cancer Status:Active Comments:Materna l Grandmother. Paternal Aunt. Coronary Artery Disease Status:Active Comments :Maternal Grandmother. Diabetes Mellitus Type II Status:Active Commen ts:Maternal Grandfather. Hypertension Status:Active Comments:Materna l Grandmother. Hypothyroidism Status:Active Comments:Materna l Grandmother. Mother. leukemia Status:Active Comments:Paterna l Grandmother. Lymphoma Status:Active Comments:Father. B-Cell Lymphoma Osteoarthritis Status:Active Comments:Materna l Grandfather. Maternal Grandmother. Prostate Cancer Status:Active Comments:Materna l Grandfather. and bone cancer Skin Cancer Status:Active Comments:Mother. Uterine Cancer Status:Active Comments:Materna l Grandmother. Breast Cancer Status:Active Comments:Paterna l Grandmother. Cancer Status:Active Comments:Materna l Grandfather. Cerebrovascular Accident Status:Active Comment s:Paternal Grandfather. Maternal Grandmother. Colon Cancer Status:Active Comments:Materna l Grandmother. Paternal Aunt. Coronary Artery Disease Status:Active Comments :Maternal Grandmother. Diabetes Mellitus Type II Status:Active Commen ts:Maternal Grandfather. Hypertension Status:Active Comments:Materna l Grandmother. Hypothyroidism Status:Active Comments:Materna l Grandmother. Mother. leukemia Status:Active Comments:Paterna l Grandmother. Lymphoma Status:Active Comments:Father. B-Cell Lymphoma Osteoarthritis Status:Active Comments:Materna l Grandfather. Maternal Grandmother. Prostate Cancer Status:Active Comments:Materna l Grandfather. and bone cancer Skin Cancer Status:Active Comments:Mother. Uterine Cancer Status:Active Comments:Materna l Grandmother. Breast Cancer Status:Active Comments:Paterna l Grandmother. Cancer Status:Active Comments:Materna l Grandfather. Cerebrovascular Accident Status:Active Comment s:Paternal Grandfather. Maternal Grandmother. Colon Cancer Status:Active Comments:Materna l Grandmother. Paternal Aunt. Coronary Artery Disease Status:Active Comments :Maternal Grandmother. Diabetes Mellitus Type II Status:Active Commen ts:Maternal Grandfather. Hypertension Status:Active Comments:Materna l Grandmother. Hypothyroidism Status:Active Comments:Materna l Grandmother. Mother. leukemia Status:Active Comments:Paterna l Grandmother. Lymphoma Status:Active Comments:Father. B-Cell Lymphoma Osteoarthritis Status:Active Comments:Materna l Grandfather. Maternal Grandmother. Prostate Cancer Status:Active Comments:Materna l Grandfather. and bone cancer Skin Cancer Status:Active Comments:Mother. Uterine Cancer Status:Active Comments:Materna l Grandmother. Advance Directives No Advanced Directives Records Found Advance Directive Response Recorded Date/ Time Living Will No May 05 11:54am Power of Manufacturing Recruiter No May 05, 2023 11:54am Advance Directive Response Recorded Date/ Time Living Will No October 23, 2024 8:58am Do you have a Healthcare Power of Manufacturing Recruiter? No October 23, 2024 8:58am Chief Complaint and Reason for Visit Chief Complaint THYROID CA Reason for Visit Acid reflux Dysphagia Globus sensation Chief Complaint Admit Date THYROID CANCER September 04, 2024 2:30pm THYROID NODULE October 04, 2024 1:0 1pm R THYROID NODULE X 2 October 04, 2024 3: 37pm Reason for Visit Admit Date Thyroid nodule October 04, 2024 1:0 1pm Chief Complaint Admit Date THYROID CANCER September 04, 2024 2:30pm RT THYROID NODULE October 04, 2024 10: 00am THYROID NODULE October 04, 2024 1:0 1pm R THYROID NODULE X 2 October 04, 2024 3: 37pm [id number] Malignant neoplasm of thyroid gland October 20, 2024 4:11pm Additional Source Comments INFORMATION SOURCE (unrecogn ized section and content) DATE CREATED AUTHOR 09/21/2020 [facility] DATE CREATED AUTHOR AUTHOR'S ORGANIZ ATION 05/22/2021 [facility] DATE CREATED AUTHOR AUTHOR'S ORGANIZ ATION 09/01/2024 [facility] DATE CREATED AUTHOR AUTHOR'S ORGANIZ ATION 09/02/2024 [facility] DATE CREATED AUTHOR AUTHOR'S ORGANIZ ATION 01/18/2025 [facility] DATE CREATED AUTHOR AUTHOR'S ORGANIZ ATION 02/15/2025 [facility] DATE CREATED AUTHOR AUTHOR'S ORGANIZ ATION 03/01/2025 [facility] Care Teams (unrecognized sec tion and content) Team Status: Active Member Role Status Dates ANIBAL Roberts Primary Care Provider Active Team Status: Inactive Member Role Status Dates ANIBAL Roberts Primary Care Provider Active Start: September 04, 2024 End: September 04, 2024 ANIBAL Roberts Attending Provider Active Start: September 04, 2024 End: September 04, 2024 ANIBAL Roberts Referring Provider Active Start: September 04, 2024 End: September 04, 2024 Team Status: Inactive Member Role Status Dates ANIBAL Roberts Primary Care Provider Active Start: October 04, 2024 End: October 04, 2024 Alanis Batista PA, PA Referring Provider Active Start: October 04, 2024 End: October 04, 2024 Dr. David Cano MD Attending Provider Active Start: October 04, 2024 End: October 04, 2024 Team Status: Inactive Member Role Status Dates Alanis Batista PA, PA Primary Care Provider Active Start: October 04, 2024 End: October 04, 2024 Dr. David Cano MD Attending Provider Active Start: October 04, 2024 End: October 04, 2024 Dr. David Cano MD Referring Provider Active Start: October 04, 2024 End: October 04, 2024 Team Status: Active Member Role Status Dates Alanisgolden Paceer PA, PA Primary Care Provider, Referring Provider Active Dr. David Cano MD Attending Provider, Other Provi judith Active Team Status: Inactive Member Role Status Dates Alanis Batista PA, PA Primary Care Provider Active Dr. David Cano MD Attending Provider, Referring P grant Active Team Status: Inactive Member Role Status Dates Alanis Batista PA, PA Primary Care Provider, Referring Provider Active Dr. David Cano MD Attending Provider Active Team Status: Active Member Role Status Dates Alanis Batista PA, PA Primary Care Provider Active Start: October 04, 2024 Dr. Ramsey Sinclair MD Attending Provider Active Start: October 04, 2024 Dr. Ramsey Sinclair MD Referring Provider Active Start: October 04, 2024 Team Status: Inactive Member Role Status Dates Alanis Batista PA, PA Primary Care Provider Active Start: October 20, 2024 End: October 20, 2024 Dr. David Cano MD Attending Provider Active Start: October 20, 2024 End: October 20, 2024 Dr. David Cano MD Referring Provider Active Start: October 20, 2024 End: October 20, 2024 Team Status: Inactive Member Role Status Dates Alanis Batista PA, PA Primary Care Provider Active Start: October 26, 2024 End: October 26, 2024 Alanis Batista PA, PA Referring Provider Active Start: October 26, 2024 End: October 26, 2024 Dr. David Cano MD Attending Provider Active Start: October 26, 2024 End: October 26, 2024 Team Status: Active Member Role Status Dates Alanis Batista PA, PA Primary Care Provider Active Start: October 26, 2024 Alanis BARNETT, PA Referring Provider Active Start: October 26, 2024 Dr. David Cano MD Attending Provider Active Start: October 26, 2024 Dr. David Cano MD Other Provider Active Sta rt: October 26, 2024 Umbrella Tipper Hand Relationship Specialty Start Date End Date BatistaAlanis merchant [address] [place] [address] PCP - General Family Medicine 12/08/24 Umbrella Tipper Hand Relationship Specialty Start Date End Date BatistaAlanis [address] [place] [address] PCP - General Family Medicine 12/08/24 Umbrella Tipper Hand Relationship Specialty Start Date End Date Alanis Batista [address] [facility] [place] [address] PCP - General Family Medicine 12/08/24 Umbrella Tipper Hand Relationship Specialty Start Date End Date Alanis Batista [address] [place] [address] PCP - General Family Medicine 12/08/24 Umbrella Tipper Hand Relationship Specialty Start Date End Date Alanis Batista [address] [place] [address] PCP - General Family Medicine 12/08/24 Umbrella Tipper Hand Relationship Specialty Start Date End Date Alanis Batista [address] [place] [address] PCP - General Family Medicine 12/08/24 Umbrella Tipper Hand Relationship Specialty Start Date End Date Alanis Batista [address] [place] [address] PCP - General Family Medicine 12/08/24 Umbrella Tipper Hand Relationship Specialty Start Date End Date Alanis Batista [address] [facility] [place] [address] PCP - General Family Medicine 12/08/24 Umbrella Tipper Hand Relationship Specialty Start Date End Date Alanis Batista [address] [facility] [place] [address] PCP - General Family Medicine 12/08/24 Goals (unrecognized section and content) Goals may be documented in a n alternate sectionGoals may be documented in an alternate section Source Comments (unrecognize d section and content) In the event this informatio n is protected by the Federal Confidentiality of Alcohol and Drug Abuse Patient Records regulations: The Federal rules restrict any use of the information to criminally investigate or prosecute any alcohol or drug abuse patient.[facility] the event this information is protected by the Federal Confidentiality of Alcohol and Drug Abuse Patient Records regulations: The Federal rules restrict any use of the information to criminally investigate or prosecute any alcohol or drug abuse patient.[facility] Center[facility] the event this information is protected by the Federal Confidentiality of Alcohol and Drug Abuse Patient Records regulations: The Federal rules restrict any use of the information to criminally investigate or prosecute any alcohol or drug abuse patient.[facility] Center[facility] the event this information is protected by the Federal Confidentiality of Alcohol and Drug Abuse Patient Records regulations: The Federal rules restrict any use of the information to criminally investigate or prosecute any alcohol or drug abuse patient.[facility] Center[facility] the event this information is protected by the Federal Confidentiality of Alcohol and Drug Abuse Patient Records regulations: The Federal rules restrict any use of the information to criminally investigate or prosecute any alcohol or drug abuse patient.[facility] Center[facility] the event this information is protected by the Federal Confidentiality of Alcohol and Drug Abuse Patient Records regulations: The Federal rules restrict any use of the information to criminally investigate or prosecute any alcohol or drug abuse patient.[facility] Center[facility] the event this information is protected by the Federal Confidentiality of Alcohol and Drug Abuse Patient Records regulations: The Federal rules restrict any use of the information to criminally investigate or prosecute any alcohol or drug abuse patient.[facility] Center[facility] the event this information is protected by the Federal Confidentiality of Alcohol and Drug Abuse Patient Records regulations: The Federal rules restrict any use of the information to criminally investigate or prosecute any alcohol or drug abuse patient.[facility] Center[facility] the event this information is protected by the Federal Confidentiality of Alcohol and Drug Abuse Patient Records regulations: The Federal rules restrict any use of the information to criminally investigate or prosecute any alcohol or drug abuse patient.[facility] Center[facility] the event this information is protected by the Federal Confidentiality of Alcohol and Drug Abuse Patient Records regulations: The Federal rules restrict any use of the information to criminally investigate or prosecute any alcohol or drug abuse patient.[facility] CenterIn the event this information is protected by the Federal Confidentiality of Alcohol and Drug Abuse Patient Records regulations: The Federal rules restrict any use of the information to criminally investigate or prosecute any alcohol or drug abuse patient.[facility] Center[facility] the event this information is protected by the Federal Confidentiality of Alcohol and Drug Abuse Patient Records regulations: The Federal rules restrict any use of the information to criminally investigate or prosecute any alcohol or drug abuse patient.[facility] Center[facility] the event this information is protected by the Federal Confidentiality of Alcohol and Drug Abuse Patient Records regulations: The Federal rules restrict any use of the information to criminally investigate or prosecute any alcohol or drug abuse patient.[facility] Reason for Visit (unrecogniz ed section and content) Reason Comments Outside Referral Requests Reason Comments Consult FACE SHEET Reason Comments Pre-Op Visit Reason Comments Thyroid Disease Reason Comments Appointment Left a message for p atient to call [phone] to schedule a Consult with a [facility] for [place] Treatment for Thyroid Cancer diagnosis and sent My Chart message Reason Comments Thyroid Cancer Specialty Diagnoses / Procedures Referred By Contjennifer t Referred To Contact Endocrinology Diagnoses Malignant neoplasm of thyroid gland (HCC) Procedures CONSULT TO ENDOCRINOLOGY OFFICE/OUTPATIENT [facility] 60 MINUTES Jeyson Bustamante MD [address] [place] [address] Phone: tel: fax: Referral ID Status Reason Start Date Expiration Date V isits Requested Visits Authorized [id number] Closed PCP Requested Referral 01/29/2025 01/29/2026 1 1 Reason Comments Post Op FOR RECORDS PERTAINING TO PATIENTS WHO ARE OR HAVE BEEN ENROLLED IN A CHEMICAL DEPENDENCY/SUBSTANCEABUSE PROGRAM, SOME INFORMATION MAY BE OMITTED. This clinical summary was aggregated from multiple sources. Caution should be exercised in using it in the provision of clinical care. This summary normalizes information from multiple sources, and as a consequence, information in this document may materially change the coding, format and clinical context of patient data. In addition, data may be omitted in some cases. CLINICAL DECISIONS SHOULD BE BASED ON THE PRIMARY CLINICAL RECORDS. [employer] provides no warranty or guarantee of the accuracy or completeness of information in this document.
[2025-03-01 07:01] LABS: Internal QC Validated? YES +Cl - CLEAR BKGD; Pregnancy, Urine Negative Negative; Record Kit Lot#,Urine Preg 0000962302
[2025-03-01] MEDS: Lactated Ringers 1,000 ML 15 ML IV (07:03)
--- NOTE | 2025-03-01 07:17 | PRE.ANES_ITS ---
ASA Classification* ASA Classification ASA Classification: 2 Assessment & Plan Anesthesia* Anesthesia Assessment Anesthesia Assessment: Discussed sedation and/or anesthesia options, risks, benefits, and alternatives with patient/parents/legal guardian/POA. Questions invited. The patient/parents/legal guardian/POA seems to understand and agrees to proceed with anesthesia plan. Reviewed the physical assessment, medical history, allergy history and patient home medications list prior to surgery/procedure/anesthetic and documented any changes. Performed airway and anesthesia risk assessments. Anesthesia Type Anesthesia Type: MAC History Source History Obtained from:: Patient and Chart Anesthesia Focused Assessment* Temperature: 97.6 F Pulse Rate: 66 Blood Pressure: 110/82 Respiratory Rate: 16 Pulse Ox: 100 Oxygen Delivery Method: Room Air Airway Assessment Mouth opens: >3 cm Mallampati Score: I Teeth Condition: Loose (Tooth #10 is slightly loose.) Neck Range of motion (ROM): Full ROM Labs Anesthesia Preop lab: CBC CHEMISTRY TSH 2.33 uIU/mL (0.358-3.74) 04/21/23 13:27 COAG Urine Test Negative Negative 03/01/25 06:54 03/01/25 Pre-Assessment Diagnosis/Proposed Procedure Planned Operative Procedure(s): EGD 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 History - web communications specialist: Anesthesia History - web communications specialist Hx Hospitalization Yes: 01/11/2025 THYROID 02/27/25 12:18 REMOVAL Any Problems With Anesthesia Yes: N,V 02/27/25 12:18 Cholinesterase deficiency No 02/27/25 12:18 You/Your Family Experience No 02/27/25 12:18 fever (hyperthermia) with Relationship Recent Exposure to Contagious No 03/01/25 07:01 Disease Does patient have nerve No 02/27/25 12:18 stimulator Patient instructed to have device shut off --Does patient have Pacemaker No 03/01/25 07:01 or ICD? When Was Last Pacemaker Check QUESTION #4 FULL TEXT: You/Your Family Experience fever (hyperthermia) with Anesthesia Last Oral Intake Last Oral intake: Last Oral Intake NPO since 00:00 03/01/25 07:01 Meds taken in AM with sips of Yes 03/01/25 07:01 water? Meds patient instructed to take am of surgery PONV PONV - web communications specialist: PONV - web communications specialist Female Yes 02/27/25 12:18 HX of Motion Sickness No 02/27/25 12:18 HX of N/V After Surgery Yes 02/27/25 12:18 Non-Smoker Yes 02/27/25 12:18 Duration of Surgery greater No 02/27/25 12:18 than 60 minutes Number of Risk Factors 3 02/27/25 12:18 PONV Score Moderate Risk 02/27/25 12:18 Height & Weight Height & Weight: Anesthesia: Height & Weight Height 5 ft 7 in 03/01/25 07:01 Weight: 70.9 kg 03/01/25 07:01 Body Mass Index (BMI) 24.5 03/01/25 07:01 Respiratory Assessment Respiratory Assessment - web communications specialist: Respiratory Tract Infection Hx - web communications specialist Hx Respiratory Tract Infection No 02/27/25 12:18 STOP Sleep Apnea STOP Sleep Apnea - web communications specialist: STOP Sleep Apnea - web communications specialist Hx Hypertension No 02/27/25 12:18 Hx Sleep Apnea No 02/27/25 12:18 CPAP No 02/27/25 12:18 BIPAP Do you snore loudly (louder No 02/27/25 12:18 than talking or can be heard Do you often feel tired/ No 02/27/25 12:18 fatigued/ sleepy during daytime? Has anyone observed you stop No 02/27/25 12:18 breathing during sleep? STOP Results Negative 02/27/25 12:18 QUESTION #5 FULL TEXT : Do you snore loudly (louder than talking or can be heard through closed doors)? 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 Specify any problems Hx of Preganancy in last 3 No 02/27/25 12:18 Months Nurse Filling Out Transfusion VCHRISTIN 02/27/25 12:18 & Questions: Date: 02/27/25 02/27/25 12:18 Time: 12:19 02/27/25 12:18 Patient unable to answer at this time (ie. confused, unrespo /Reproduction History /Reproductive History - web communications specialist: /Reproductive Hx- web communications specialist Hx Now No 02/27/25 12:18 Gestational Age (in weeks): EDC: Hx Hx Para Hx Section SAB No 02/27/25 12:18 Active Medications Active Medications: Current Medications Generic Name Dose Route Start Last Admin Trade Name Freq PRN Reason Stop Dose Admin Lactated Ringer's 1,000 mls @ 15 mls/hr 03/01/25 06:45 03/01/25 07:03 IV 15 mls/hr .Q48H TATYANA Administration PFSH Medical History Thyroid cancer Wears contact lenses Alcohol use Gastric reflux Asthma Non-smoker Chest pain Thyroid nodule Acid reflux Home Medications ?Medication ?Instructions ?Recorded ?Last Taken ?Type multivitamin (Daily Multi-Vitamin 1 tab PO DAILY 05/0502/28/25 History tablet) hydroxyzine HCl 25 mg tablet 25 mg PO BID PRN anxiety 10/04/24 02/28/25 History calcium carbonate (Tums) 200 mg PO DAILY PRN dyspepsi a 10/26/24 02/28/25 History levothyroxine 112 mcg tablet 112 mcg PO DAILY 02/27/25 03/01/25 History Allergy/AdvReac Type Severity Reaction Status Date / Time cefaclor ([facility]) Allergy Rash Verified 03/01/25 07:00 Family History Grandmother Cancer Thyroid disorder Surgical History (Updated 02/27/25 @ 12:18 by Allegra Laureano) Hx of thyroidectomy History of esophagogastroduodenoscopy (EGD) History of lobectomy of thyroid Hx of oral surgery Hx of wisdom tooth extraction H/O section Social History Smoking Status: Never smoker alcohol intake: current alcohol intake frequency: a few times a month Review of Systems (Anesthesia) ROS Narrative System reviewed and no additional complaints, except as documented. Physical Exam Resp clear to auscultation bilaterally
--- NOTE | 2025-03-01 07:30 | EGD_PTH ---
PATIENT: ZAC KEEN LOC: EN U#:[id number] AGE/SX: 39/F ROOM: RE03/01/[address]: Dr. Kenrick Cano MD : 1985 BED: DIS: 03/01/2025 SPEC #: [id number] RECD: 03/01/25 09:37 STATUS: AZRA JANAY #: [id number] FLAQUITO: 03/01/25 07:[address]: Kenrick Cano DEPT: SURGICAL PATHOLOGY RECD BY: Artur Wilkes ENTERED: 03/01/25 10:49 SP TYPE: EGD BIOPSY OTHR DR: ANIBAL Workman Tissues: A - Gastric mucous membrane B - Esophagus, NOS C - Esophagus, NOS D - Esophagus, NOS E - PLAQUE Procedures: Immunohistochemical Stains Surgery Specimen Level III Surgery Specimen Level IV HEADER OPERATION: EGD with biopsy PRE-OP DIAGNOSIS: Eosinophilic esophagitis TISSUE SUBMITTED: A- Antrum biopsy, B- Distal esophagus biopsy, C- Mid esophageal plaque,D- Proximal esophageal nodule, E- Distal esophageal plaque MICROSCOPIC DIAGNOSIS A. Antrum, biopsy: - Chronic gastritis. - IHC for H pylori is pending and will be reported in an addendum. B. Distal esophagus, biopsy: - Squamous mucosa with reactive changes. - Greater than 80 eosinophils per high power field. C. Mid esophagus, plaque, biopsy: - Squamous mucosa with reactive changes. - Greater than 70 eosinophils per high power field. D. Proximal esophagus, biopsy: - Squamous mucosa with reactive changes. - Greater than 50 eosinophils per high power field. E. Distal esophagus, plaque, biopsy: - Squamous mucosa with reactive changes. - 10 eosinophils per high power field. MICROSCOPIC DESCRIPTION Slides are reviewed. All matched controls reacted appropriately. These tests were developed and their performance characteristics determined by [facility]. They may not have been cleared or approved by the U.S. Food and Drug Administration. The FDA has determined that such clearance or approval is not necessary. The above immunohistochemical markers are reviewed by the Pathologist. GROSS DESCRIPTION A. Received in fixative is one container labeled with the patient's name and designated Antrum biopsy. The specimen consists of one irregular fragment of light judge soft tissue that measures 0.6 cm. The specimen is totally submitted in one cassette. B. Received in fixative is one container labeled with the patient's name and designated Distal esophagus mucosa. The specimen consists of two irregular fragments of light judge soft tissue that measure 0.3 and 0.6 cm. The specimen is totally submitted in one cassette. C. Received in fixative is one container labeled with the patient's name and designated Mid esophageal plaque. The specimen consists of one irregular fragment of light judge soft tissue that measures 0.7 cm. The specimen is totally submitted in one cassette. D. Received in fixative is one container labeled with the patient's name and designated Proximal esophageal nodule. The specimen consists of one irregular fragment of light judge soft tissue that measures 0.5 cm. The specimen is totally submitted in one cassette. E. Received in fixative is one container labeled with the patient's name and designated Distal esophageal plaque. The specimen consists of two irregular fragments of light judge soft tissue that measure 0.1 and 0.6 cm. The specimen is totally submitted in one cassette. IN 03/01/2025 [facility]:[id number] ADDENDUM ADDENDUM ADDENDUM ADDENDUM 03/05/2025 14:57 ADDENDUM 03/05/2025 14:57 ADDENDUM 03/05/2025 14:57 ADDENDUM 03/05/2025 14:57 ADDENDUM 03/05/2025 14:57 This addendum is to report the result of the H pylori IHC on part A: A. IHC negative for H. pylori organisms.
--- NOTE | 2025-03-01 07:41 | HP.PCM_ITS ---
History and Physical Date of Admission: 03/01/25 Date of Service: 10/04/24 MR#: [id number] Acct: [id number] Name: ZAC KEEN Rep #: [id number] : 1985 Provider: Dr. Kenrick Cano MD Age/Sex: 39/F Location: [facility] Status: Signed Intake Vital Signs 12/08/2408:44 10/04/2512:16 Height 5 ft 7 in 5 ft 7 in Weight: 159 lb BMI 24.9 BP 126/86 H Blood Pressure Location Rt brachial Position Sitting Respiration 17 Pulse 90 Pulse Source Monitor Pulse Oximetry (%) 99 Oxygen Delivery Method room air Intake Visit Reasons: THYROID NODULE Chief Complaint: thyroid nodule Is patient in pain?: No Allergies cefaclor (From Ceclor) Allergy (Verified 10/04/24 13:17) Rash Medications ?Medication ?Instructions ?Recorded ?Confirmed ?Type multivitamin (Daily Multi-Vitamin 1 tab PO DAILY 05/05/23 10/04/24 History tablet) hydroxyzine HCl 25 mg tablet 25 mg PO BID PRN 10/04/24 10/04/24 Histo ry PFSH Medical History Thyroid cancer Wears contact lenses Alcohol use Gastric reflux Asthma Non-smoker Chest pain Thyroid nodule Acid reflux Surgical History History of esophagogastroduodenoscopy (EGD) History of lobectomy of thyroid Hx of oral surgery Hx of wisdom tooth extraction H/O section Family History Grandmother Cancer Thyroid disorder Social History Smoking Status: Never smoker alcohol intake: current alcohol intake frequency: a few times a month HPI HPI HPI: Patient is a 39-year-old female who makes consultation related to newly?discovered right thyroid bed nodule status post right thyroid lobectomy on 06/23/2021 with me for 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 Surveillance visits were conducted with both myself and endocrinology with a most recent thyroid ultrasound occurring April 2023 that demonstrated no thyroid tissue of the surgical bed on the right. Patient states a couple of months ago that she began experiencing a fullness of her throat and finding that with swallowing sometimes food got stuck. She does distinguish this from her experience with eosinophilic esophagitis which I have also been managing after we diagnosing with endoscopy. She recalls a recent physical exam with her primary care provider, Mrs. Blankissa ANIBAL Batista and it was noted that no ultrasound of her neck had been performed recently so this was ordered?ultimately leading to the findings which occasion her visit today. Notably, Mrs. Keen denies any recent voice changes or snoring. She does share that she continues to have a cough despite otherwise resolving an illness with upper respiratory tract infection symptoms 3 weeks ago. She was never formally diagnosed but suggests this was may be the flu. ROS General General: Yes weight change; No appetite, fatigue, colon cancer, breast cancer or weakness HEENT HEENT: No difficulty swallowing, eye injury, eye surgery, swollen glands or hoarseness Endo Endocrine: Yes thyroid cancer; No thyroid disease, diabetes mellitus, Hair loss, heat intolerance or cold intolerance Skin Skin: No rash or changing moles Musc Musculoskeletal: No back problems, arthritis, rheumatoid arthritis, gout or joint pain Cardio Cardiovascular: No murmur, pacemaker, heart disease, atrial fibrillation, high blood pressure, heart attack, heart stent, palpitations, shortness of breath with exertion or chest pain Psych Psychiatric: No depression, anxiety or hearing voices Resp Respiratory: No shortness of breath, No sleep apnea, No cough, No COPD, No asthma, No emphysema and No wheezing Gastro Gastrointestinal: No abdominal pain, No nausea or vomiting, No diarrhea, No constipation, No blood in stool, Yes acid reflux, No hemorrhoids, No ulcers, No gallbladder problem and No black,tarry stools Claude Hematologic: No blood thinners, No blood disorders, No bleeding, No anemia and No blood clots Neuro Neurologic: No system reviewed and no additional complaints, except as documented, No as per HPI, No abnormal gait, No abnormal hearing, No abnormal movements, No abnormal speech, No behavioral changes, No burning sensations, No confusion, No convulsions, No disequilibrium, No dizziness, No localized weakness, No frequent falls, No headache(s), No lack of coordination, No loss of vision, No memory loss, No numbness, No other visual disturbances, No radicular pain, No restless legs, No sensory deficit, No syncope, No tingling, No tremor(s), No weakness and No other Exam Const General: cooperative and anxious Orientation: alert, awake and oriented x3 Neck Other: Well-healed transverse neck incision. Mild fullness of the right neck is appreciated but there is no tenderness. I do not appreciate any additional cervical lymphadenopathy. The ultrasound identify a larger hypoechoic area adjacent to the trachea and deep and medial to the carotid artery that measures 2.1 x 1.4 x 1.3 cm. There is a second hypoechoic area in the region previously occupied by patient's thyroid isthmus medially and inferiorly that measures 1.3 x 1.0 x 0.9 cm. Office Procedures Fine Needle Aspiration Provider Documentation Details: Indication: Right thyroid nodules After obtaining patient consent and conducting a timeout amongst those present, the procedure was commenced by locating the suspicious nodules in the superior lateral and inferior medial (overlying the trachea) positions on the right using ultrasound. Superficially, the skin was cleaned with an alcohol swab. A total volume of 5 ml 1% lidocaine was required for this procedure. Then, under ultrasound guidance, multiple passes were made into the 2.1 cm nodule using a 25-gauge needle. Once an adequate specimen was detected within the hub of the needle and bottom of the syringe, this was handed off the field. A second pass was made in a similar manner using a 22-gauge needle. This specimen, also, was passed off the field for cytopathologic evaluation. A third pass was made with a second 22-gauge needle for Afirma/genomic sequencing banking should patient have an atypical cytopathology result. External pressure was applied to the neck to assist with hemostasis. This process was repeated with 3 separate passes using the same needle sizes for patient's more inferior medial nodule (in the vicinity of patient's prior thyroid isthmus) using ultrasound guidance. Once again external pressure was applied to assist with hemostasis. A quick examination was made with ultrasound to exclude any evidence of hematoma formation. Then the surface of the neck was cleaned, dried, and a bandage was applied. Patient was gradually returned to the sitting position and after short period of monitoring was dismissed. Wound care instructions and expectations regarding pathologic processing were discussed prior to dismissal. Complications: None Estimated blood loss: 3 ml Alert James Alert Billing: Yes FNA [id number] Thyroid (X 2) Procedure Time Out Time Out Informed consent given: Yes Consent signed: Yes Time out checklist: patient, procedure, site marked/identified, positioning of patient, supplies available, allergies confirmed and team agrees on procedure Time out staff in room: Yes Time out verified: Yes Time out date: 10/04/24 Time out time: 13:19 Assessment and Plan Assessment and Plan (1) Thyroid nodule: Status: Acute Comment: Patient is a 39-year-old female with history of right?sided papillary thyroid cancer, follicular variant 1.8 cm with no high risk features status post right thyroid lobectomy and isthmusectomy in June 2021 who presents today with symptoms of dysphagia and new nodularity of her prior surgical bed. Patient otherwise denies compressive symptoms and denies significant health update. Notably, she does distinguish this from her experience with eosinophilic esophagitis. I shared frankly with Mr. Mrs. Keen that I was concerned this could represent a recurrence of her thyroid cancer and wished to proceed with biopsy of her new thyroid nodularity. Alternatively, I explained that this could represent a regrowth of her thyroid tissue secondary to underlying thyroiditis as noted on original pathology. Patient was receptive of this recommendation/sentiment. On exam, I do not find evidence of any cervical lymphadenopathy the either with my physical exam or a cursory exam using ultrasound. With ultrasound I did identify the largest of patient's 5 nodules on the right and the most clinically suspicious with the TI-RADS rating given by radiology. After I was provided with consent, I proceeded with biopsy of a 2.1 cm TI-RADS 4 lesion superior laterally and a 1.4 cm TI-RADS 4 lesion inferior medially. This was completed in a uneventful fashion. I did notify Mrs. Keen that depending on the pathology results I would be interested in obtaining a dedicated soft tissue ultrasound for purposes of lymph node mapping. If this represents a recurrence of her thyroid cancer I will likely recommend referral to a tertiary center as I do not perform any significant volume of reoperative endocrine surgery and the risk to patient's recurrent laryngeal nerve would not be in significant. Plan: ?Patient advised to apply ice to neck today. Use [id number] analgesia. Remove bandage later today ?Await cytopathology results and follow-up with patient for formulation of remainder of care plan I have examined the patient the following changes are noted: Patient underwent completion thyroidectomy with central lymph node dissection at the [facility] for recurrent thyroid cancer. She reports that she recovered well and has experience just some slight hoarseness of her voice. She denies any swal lowing difficulty at present but does report a couple instances of reflux in recent weeks. She does confirm she completed her prescribed course of budesonide. She denies any questions related today's plans to proceed with EGD to assess status of prior diagnosis of eosinophilic esophagitis.
[2025-03-01] MEDS: Lidocaine 1% (5 ml sdv) 5 ML Vial 10 ML IV (07:53)
[2025-03-01] MEDS: fentaNYL 100 MCG/2 ML Ampul 50 MCG IV (07:57)
--- NOTE | 2025-03-01 08:12 | PCM.POST.ANE ---
Anesthesia: Postop Eval I Current Vital Signs Temperature: 98 F Pulse Rate: 76 Blood Pressure: 82/54 Respiratory Rate: 16 Pulse Ox: 95 Oxygen Delivery Method: Room Air Assessment Airway patent: Yes Spontaneous unlabored respirations: Yes Mental status: Awake and Calm nausea: No Vomiting: No Anesthesia Complication: No Fluid Hydration Crystalloid volume administer (ml): 300 Total IV fluid infused: 300 Progress Note Anesthesia document: Postop Eval 1 completed: Yes
--- NOTE | 2025-03-01 08:21 | OP.PROVAT_ITS ---
03/01/2025 Alanis Batista Re : Upper GI endoscopy procedure for Sima Batista This procedure was performed on February. My impressions and recommendations are as follows: Impressions : - No gross lesions in the entire examined duodenum. No specimens collected. - Erythematous mucosa in the antrum. Biopsied. - Linearly eroded mucosa in the esophagus. Biopsied. 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 Biopsied. - Mucosal nodule found in the esophagus. Biopsied. Recommendations : - Discharge patient to home (via wheelchair). - Soft diet today. - No aspirin, ibuprofen, naproxen, or other non-steroidal anti-inflammatory drugs for 2 days after biopsy. - Await pathology results. - Telephone my office for pathology results in 1 week. My findings are described in the full procedure note, which is enclosed. If I can be of further assistance, please feel free to contact me at Doctor phone number(s): , Work: . Sincerely, Kenrick Cano MD 03/01/2025 8:20:08 AM This report has been signed electronically.
--- NOTE | 2025-03-01 08:21 | OP.EGD_ITS ---
Patient Name: Sima Caballero Procedure Date: 03/01/2025 7:12 AM Date of : 1985 Age: 39 Procedure: Upper GI endoscopy Indications: Eosinophilic esophagitis, Follow-up of eosinophilic esophagitis Providers: Kenrick Cano MD Referring MD: Alanis Batista Medicines: See the Anesthesia note for documentation of the administered medications Patient Profile: Refer to note in patient chart for documentation of history and physical. Complications: No immediate complications. Estimated blood loss: Minimal. Procedure: Pre-Anesthesia Assessment: - The heart rate, respiratory rate, oxygen saturations, blood pressure, adequacy of pulmonary ventilation, and response to care were monitored throughout the procedure. After obtaining informed consent, the endoscope was passed under direct vision. Throughout the procedure, the patient's blood pressure, pulse, and oxygen saturations were monitored continuously. The gastroscope was introduced through the mouth, and advanced to the second part of duodenum. The upper GI endoscopy was accomplished without difficulty. The patient tolerated the procedure well. Scope In: 7:56:43 AM Scope Out: 8:10:10 AM Total Procedure Duration Time 0 hours 13 minutes 27 seconds Findings: No gross lesions were noted in the entire examined duodenum. No biopsies or other specimens were collected for this exam. Localized mildly erythematous mucosa without bleeding was found in the gastric antrum. Biopsies were taken with a cold forceps for histology. Estimated blood loss was minimal. The cardia and gastric fundus were normal on retroflexion. Localized moderate mucosal changes characterized by linear erosions were found in the lower third of the esophagus. Biopsies were taken with a cold forceps for histology. Estimated blood loss was minimal. Multiple 5 to 10 mm plaques were found in the middle third of the esophagus and in the lower third of the esophagus. Biopsies were taken with a cold forceps for histology. Estimated blood loss was minimal. A single 5 mm mucosal nodule with a localized distribution was found in the upper third of the esophagus. The nodule was Martita classification Is (protruding, sessile). Biopsies were taken with a cold forceps for histology. Estimated blood loss: Minimal. Impression: - No gross lesions in the entire examined duodenum. No specimens collected. - Erythematous mucosa in the antrum. Biopsied. - Linearly eroded mucosa in the esophagus. Biopsied. 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 Biopsied. - Mucosal nodule found in the esophagus. Biopsied. Recommendation: - Discharge patient to home (via wheelchair). - Soft diet today. - No aspirin, ibuprofen, naproxen, or other non-steroidal anti-inflammatory drugs for 2 days after biopsy. - Await pathology results. - Telephone my office for pathology results in 1 week. Procedure Code(s): --- Professional --- 17297, Esophagogastroduodenoscopy, flexible, transoral; with biopsy, single or multiple Diagnosis Code(s): --- Professional --- K31.89, Other diseases of stomach and duodenum K22.10, Ulcer of esophagus without bleeding K22.89, Other specified disease of esophagus K20.0, Eosinophilic esophagitis CPT copyright 2021 [employer]. All rights reserved. The codes documented in this report are preliminary and upon pot press operator review may be revised to meet current compliance requirements. Kenrick Cano MD 03/01/2025 8:20:08 AM This report has been signed electronically. Number of Addenda: 0 Note Initiated On: 03/01/2025 7:12 AM
--- NOTE | 2025-03-01 08:24 | POSTOPAN2_ITS ---
Anesthesia Postop Eval I Sum Postop Eval Completion status Anesthesia document: Postop Eval 1 completed: Yes Anesthesia Postop Eval I Summary Anesthesia Postop Eval I Summary: Anesthesia Postop Eval I: Assessment Summary Airway patent Yes 03/01/25 08:14 GRANTS [email or web address] Spontaneous unlabored Yes 03/01/25 08:14 GRANTS ADMINISTRATOR.[email or web address] respirations Mental status Awake,Calm 03/01/25 08:14 GRANTS ADMINISTRATOR.MDOT nausea No 03/01/25 08:14 GRANTS ADMINISTRATOR.MDOT Vomiting No 03/01/25 08:14 GRANTS ADMINISTRATOR.[email or web address] Anesthesia Postop Eval I: Fluid Summary Crystalloid volume administer 300 03/01/25 08:14 GRANTS ADMINISTRATOR.MDOT (ml) Colloids volume administered ( ml) Blood Product volume administered (ml) Total IV fluid infused 300 03/01/25 08:14 GRANTS ADMINISTRATOR.[email or web address] Anesthesia Postop Eval I: Summary Notes Anesthesia Complication No 03/01/25 08:14 GRANTS [email or web address].[email or web address] Anesthesia Complication Comment: Post-operative progress note Anesthesia: Postop Eval II Evaluation Mental status: Awake and Calm Pain Level: 0 nausea: No Vomiting: No Complications Anesthesia Complication: No
--- NOTE | 2025-03-01 08:24 | PCM.POSTANE2 ---
Anesthesia Postop Eval I Sum Postop Eval Completion status Anesthesia document: Postop Eval 1 completed: Yes Anesthesia Postop Eval I Summary Anesthesia Postop Eval I Summary: Anesthesia Postop Eval I: Assessment Summary Airway patent Yes 03/01/25 08:14 [email or web address] Spontaneous unlabored Yes 03/01/25 08:14 TOOLROOM [email or web address] respirations Mental status Awake,Calm 03/01/25 08:14 TOOLROOM MACHINIST.MDOT nausea No 03/01/25 08:14 TOOLROOM MACHINIST.MDOT Vomiting No 03/01/25 08:14 TOOLROOM MACHINIST.[email or web address] Anesthesia Postop Eval I: Fluid Summary Crystalloid volume administer 300 03/01/25 08:14 TOOLROOM MACHINIST.MDOT (ml) Colloids volume administered ( ml) Blood Product volume administered (ml) Total IV fluid infused 300 03/01/25 08:14 TOOLROOM MACHINIST.[email or web address] Anesthesia Postop Eval I: Summary Notes Anesthesia Complication No 03/01/25 08:14 TOOLROOM [email or web address].[email or web address] Anesthesia Complication Comment: Post-operative progress note Anesthesia: Postop Eval II Evaluation Mental status: Awake and Calm Pain Level: 0 nausea: No Vomiting: No Complications Anesthesia Complication: No
== END 2025-03-01 09:15 | disposition home or self-care (01) ==
LOC: EN 06:39 → AC 06:40
PROVIDERS: Anesthesiology; PCP Physician Assistant; Referring Provider Physician Assistant; Visit Provider Surgery
PROC: 0DJ08ZZ Inspection of Upper Intestinal Tract, Via Natural or Artificial Opening Endoscopic (ICD-10-PCS; CPT 43235; principal; 2025-03-01 07:25)
DX: K29.50 Unspecified chronic gastritis without bleeding (principal); K20.0 Eosinophilic esophagitis; K21.9 Gastro-esophageal reflux disease without esophagitis; E04.2 Nontoxic multinodular goiter; Z79.890 Hormone replacement therapy
CPT/HCPCS: 43239; 81025; 88304; 88305; 88342; J2405

== ENCOUNTER → 2025-04-12 | Outpatient (CLI) | payer BC, SELFPAY ==
--- NOTE | 2025-04-12 17:06 | BI_ITS ---
EXAM: SCRN MAMM (CAD)W/FREDDY BILAT DATE: 04/12/2025 CLINICAL HISTORY: F, Age 40 y/o , SCREENING TECHNIQUE: Procedure Code: [id number] Modality: MG Procedure: SCRN MAMM (CAD)W/FREDDY BILAT COMPARISON: Baseline examination, no priors. FINDINGS: TISSUE DENSITY: The breasts are heterogeneously dense, which may obscure small masses. The mammogram demonstrates that the patient has dense breasts. Supplemental screening with whole breast ultrasound or MRI may be considered for further evaluation. Bilateral Breast Mammographic Findings: No significant masses, calcifications or other abnormalities are identified. BI/SCRN MAMM (CAD)W/FREDDY BILAT IMPRESSION: There is no mammographic evidence of malignancy. OVERALL FINAL ASSESSMENT BI-RADS 1: NEGATIVE. RECOMMENDATION: Routine annual follow-up in 1 Year Additional Recommendation none A letter with findings and recommendations will be mailed to the patient. Reading Location: [id number]
--- NOTE | 2025-04-12 17:06 | BI_ITS ---
EXAM: SCRN MAMM (CAD)W/FREDDY BILAT DATE: 04/12/2025 CLINICAL HISTORY: F, Age 40 y/o , SCREENING TECHNIQUE: Procedure Code: BISMWCADBTOM Modality: MG Procedure: SCRN MAMM (CAD)W/FREDDY BILAT COMPARISON: Baseline examination, no priors. FINDINGS: TISSUE DENSITY: The breasts are heterogeneously dense, which may obscure small masses. The mammogram demonstrates that the patient has dense breasts. Supplemental screening with whole breast ultrasound or MRI may be considered for further evaluation. Bilateral Breast Mammographic Findings: No significant masses, calcifications or other abnormalities are identified. BI/SCRN MAMM (CAD)W/FREDDY BILAT IMPRESSION: There is no mammographic evidence of malignancy. OVERALL FINAL ASSESSMENT BI-RADS 1: NEGATIVE. RECOMMENDATION: Routine annual follow-up in 1 Year Additional Recommendation none A letter with findings and recommendations will be mailed to the patient. Reading Location: [id number]
--- OUTSIDE RECORDS SUMMARY | 2025-04-13 07:30 | XMS RPT_ITS | CCD ---
Author Organization [facility] Care Team Providers Care Radiosonde Specialist Name Role Phone ALANIS BATISTA Admitting Unavailable [...] Consulting Unavailable ANIBAL Blanc Primary Care Provider ANIBAL Blanc Referring Provider Dr. David Cano Attending Provider [phone] Dr. David Cano Other Provider [phone] Alanis Batista PA-C Unavailable Alanis Batista PA-C Unavailable General Surgery Provider Unavailable Unavail able [facility] Unavailable Naheed Her LPN Unavailable Sarita Chavez PA-C Unavailable Supriya Stratton PA-C Unavailable Rickey SHEPPARD, Gregg E Unavailable Manny POOLING OPERATOR, Ann Unavailable Unavailable Skylar BURDICK, Supriya Clements Unavailable Unavaila ble Gabbi POOLING OPERATOR, Wendy Unavailable Unavailable Zay BURDICK, Juana Unavailable Hector BURDICK, Jessica Carbone Unavailable Unavailable Lamas POOLING OPERATOR, June Unavailable Unavailable Earline POOLING OPERATOR, Juliet M Unavailable Unavailab domonique Morgna MA, Ann Unavailable Unavailable Jodi IGNACIO, Alta Clements Unavailable Vess POOLING OPERATOR, Katarinaphi L Unavailable Unavailable Wengerd POOLING OPERATOR, Anabel Unavailable Unavailabl e Unavailable Unavailable [facility] Unavailable [facility] Attending Unavailable Batista PA, Alanis Primary Care Provider Batista PA, Alanis Attending Provider Lester BARNETT, Alanis Referring Provider [phone] Dr. David Cano MD Attending Provider Dr. David Cano MD Referring Provider Dr. Ramsey Sinclair MD Attending Provider Dr. Ramsey Sinclair MD Referring Provider Jerome IGNACIO, Dr. Choudhary Other Provider Unavailable Primary Care Provider Unavailabl e Lester, Alanis J Primary Care Provider JEYSON BUSTAMANTE Admitting Unavailable SIPERSTEIN JEYSON Attending Unavailable BATISTA, ALANIS J Primary Care Unavailable Batista PA, Alanis Primary Care Provider Batista PA, Alanis Referring Provider Dr. David Cano MD Attending Provider Dr. David Cano MD Other Provider BATISTA, ALANIS J Primary Care Unavailable SIPERSTEIN, JEYSON Referring Unavailable SIPERSTEIN, JEYSON Referring Unavailable BATISTA, ALANIS J Primary Care Unavailable CINDY JEYSON Attending Unavailable BOBBI DE LA PAZ Attending Unavailable BATISTA, ALANIS J Primary Care Unavailable BOBBI DE LA PAZ Referring Unavailable BATISTA, ALANIS J Primary Care Unavailable JEYSON BUSTAMANTE Referring Unavailable BOBBI DE LA PAZ Attending Unavailable BATISTA, ALANIS J Primary Care Unavailable BATISTA, ALANIS J Primary Care Unavailable JAYLA CARR Attending Unavailable Ramsey Sinclair Attending Unavailable Yahir, Ramsey Referring Unavailable Batista PA, Alanis Primary Care Unavailable Batista PA, Alanis Referring Unavailable Batista PA, Alanis Primary Care Unavailable David Cano Attending Unavailable David Cano Consulting Unavailable Batista PA, Alanis Primary Care Unavailable Batista PA, Alanis Referring Unavailable BorDavid campa Attending Unavailable Batista PA, Alanis Referring Unavailable Batista PA, Alanis Primary Care Unavailable David Cano Consulting Unavailable David Cano Attending Unavailable Batista PA, Alanis Attending Unavailable Batista PA, Alanis Referring Unavailable Batista PA, Alanis Primary Care Unavailable Daivd Cano Attending Unavailable Batista PA, Alanis Referring [...] Alanis Referring Unavailable David Cano Attending Unavailable Allergies Allergy Classification Reported Allergen(s) Allergy Type Date of Onset Reaction(s) Facility (1 source) Cefaclor Drug Allergy [facility] Repository (20 sources) Cefaclor; Translations: [CEFACLOR] Drug Allergy 05-13-2023 Rash [facility] (1 source) Cefaclor Drug Allergy 03-01-2025 [facility] Repository Medications Current Medications Medication Drug Class(es) Dates Sig (Normalized) Sig (Original) calcium carbonate 500 mg chewable tablet (12 sources) Start: 01-12-2025 take 500 mg by [...] mg / cholecalciferol 200 unt oral tablet (10 sources) Vitamin D Start: 01-12-2025 take 1 tablet by mouth three times daily wcrdior-wiorgsvxi-fypvrmg D3 500 mg-5 mcg (200 unit) per [...] needed. levothyroxine sodium 0.112 mg oral tablet (19 sources) l-Thyroxine Start: End: take 1 tablet by mouth once daily levothyroxine (SYNTHROID) 112 mcg tablet Take 1 tablet by mouth once daily. 90 tablet 3 02/13/2025 Active Start: 12-06-2024 take 1 tablet by claudette th once daily levothyroxine (SYNTHROID) 88 mcg tablet Take 1 tablet by mouth once daily. 90 tablet 3 12/06/2024 Active Multivitamin (Daily Multi-Vitamin) tablet (5 sources) Start: 05-05-2023 Multivitamin ( Daily Multi-Vitamin) tablet Active 1 {tbl} PO DAILY May 05, 2023 12:00am Start: 05-05-2023 take 1 tablet by claudette th once daily Multivitamin (Daily Multi-Vitamin) tablet Active 1 TABLET PO DAILY May 05, 2023 12:00am multivitamin tablet (13 sources) multivitamin tab let ; daily pantoprazole 20 mg delayed release oral tablet (16 sources) Proton Pump Inhibitor Start: 08-30-2024 pantoprazole 20 mg tablet,delayed release ; 1 (one) tablet 30-60 minutes before first meal of day for 0 days Quantity: 30 {Tablet} Refills: 0 Ordered: 30-Aug-2024 VALARIE Batista Start: 30-Aug-2024 Start: 12-09-2023 End: 10-04-2024 take 1 tablet by mouth once daily Pantoprazole 40 mg tablet,delayed release (DR/EC) Discontinued 40 mg PO DAILY 30 0 December 09, 2023 12:00am October 04, 2024 1:17pm Gastroesophageal reflux disease Gastritis Gastro-esophageal reflux disease without esophagitis Gastritis, unspecified, without bleeding Completed/Discontinued Medications Medication Drug Class(es) Dates Sig (Normalized) Sig (Original) amoxicillin 500 mg oral tablet (5 sources) Penicillin-class Antibacterial Start: 05-05-2023 End: 12-06-2023 [...] Medication taken as needed. swallow whole budesonide 0.5 mg/ml inhalation suspension (20 sources) Corticosteroid Start: 10-31-2024 End: 01-23-2025 take 1 mg by mouth twice daily Budesonide 1 mg/2 mL suspension for nebulization Discontinued 0.5 mg INHALATION TWICE A DAY [id number] October 31, 2024 12:00am January 22, 2025 12:00am January 23, 2025 12:05am Take 1mg budesonide BID PO for 12 weeks Start: 12-27-2023 End: 03-20-2024 take 2 mg by inhalation twice daily Budesonide 0.5 mg/2 mL suspension for nebulization Discontinued 0.5 mg INHALATION TWICE A DAY [phone] December 27, 2023 12:00am March 19, 2024 12:00am March 20, 2024 12:04am Eosinophilic esophagitis Eosinophilic esophagitis Take 2mg BID daily for 12 weeks Start: 05-21-2023 End: 08-13-2023 take 1 dose by inhalation twice daily Budesonide 0.5 mg/2 mL suspension for nebulization Discontinued 0.5 mg INHALATION TWICE A DAY [phone] May 21, 2023 12:00am August 12, 2023 1:00am August 13, 2023 1:05am Eosinophilic esophagitis Eosinophilic esophagitis Please arrange for full dose of 2 mg twice daily to be taken orally budesonide 200 m cg/actuation breath activated powder inhaler ; 2m two times daily (200 mcg/actuat) Status: Inactive take 2 mL by mouth in the mornin g BUDESONIDE ORAL Take by mouth. Pt uses Liquid 2ml in Am and 2ml in pm Active Budesonide 2 mg/10 mL suspension in packet (4 sources) Start: 12-23-2023 End: 12-23-2023 take 1 mL by mouth twice daily in the morning Budesonide 2 mg/10 mL suspension in packet Discontinued 10 mL PO TWICE A DAY [phone] December 23, 2023 12:00am March 15, 2024 12:00am December 23, 2023 9:16am administer in the morning and evening Start: 12-23-2023 End: 12-23-2023 take 1 mL [...] 50 mcg/actuation nasal spray,susp ; 1 (one) Adrian in each nostril BID for 0 days Quantity: 1 {Applicator} Refills: 0 Ordered: 30-Aug-2024 JAVAD Patten Start: 02-Nov-2022 End: 30-Aug-2024 Status: Inactive Start: 11-02-2022 take 1 spray(s) nasa l route twice daily Children's Flonase Allergy Relief 50 mcg/actuation nasal spray,susp ; 1 (one) Adrian in each nostril BID for 0 days [...] {Tablet} Refills: 0 Ordered: 28-Apr-2022 ZAKIYA Quinteros Crystal K Start: 28-Apr-2022 End: 03-May-2022 Status: Inactive Start: [...] is a recurrence of symptoms. Esophageal disorders (13 sources) Esophagitis; Translations: [Esophagitis] Onset: 5 01-02-2025 Episodic Fluid and electrolyte disorders (20 sources) Dehydration; Translations: [Dehydration] 08-10-2016 Episodic Gastritis and duodenitis (4 sources) Gastritis; Translations: [Gastritis, unspecified, without bleeding] [...] [Dermatophytosis, unspecified] 07-14-2023 Episodic Nausea and vomiting (13 sources) Postoperative nausea and vomiting; Translations: [Nausea with vomiting, unspecified] Onset: 5 01-02-2025 Episodic Other complications of (20 sources) Urinary tract infection in ; Translations: [Unspecified infection of urinary tract in , second trimester] 08-10-2016 Episodic Other gastrointestinal disorders (5 sources) Dysphagia; Translations: [Dysphagia, unspecified] 05-13-2023 Episodic Comment on above: Resolved Other gastrointestinal disorders (2 sources) Dysphagia, unspecified; Translations: [Dysphagia, unspecified] Onset: 5 05-13-2023 Episodic Other inflammatory condition of skin (20 sources) [...] status; Translations: [Encounter for screening of mother] Onset: 5 11-05-2016 Episodic Other skin disorders (20 sources) Vesicular eczema; 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]] 07-14-2023 Episodic Other skin disorders (20 sources) Skin nodule; Translations: [Localized swelling, mass and lump, unspecified] 05-17-2019 Episodic Other skin disorders (20 sources) Nodule of subcutaneous tissue of neck; Translations: [Localized swelling, mass and lump, neck] 05-21-2021 Episodic Other upper respiratory disease (6 sources) Feeling of lump in throat; Translations: [Globus sensation] 05-13-2023 Episodic Other upper respiratory infections (20 sources) Acute nasopharyngitis [common cold]; Translations: [Posterior rhinorrhea] Onset: Episodic Residual codes; unclassified (17 sources) History of thyroid lobectomy; Translations: [Acquired [...] of ] 05-01-2016 Episodic Residual codes; unclassified (20 sources) Family history of malignant lymphoma; Translations: [Family history of other malignant neoplasms of lymphoid, hematopoietic and related tissues] 08-30-2024 Episodic Residual codes; unclassified (1 source) Other specified postprocedural states; Translations: [PONV (postoperative nausea and vomiting)] Onset: 5 Episodic Residual codes; unclassified (1 source) Acquired [...] Other Problems Problem Classification Problem Date Documented Date Episodic/Chronic Malaise and fatigue (1 source) Weakness; Translations: [Weakness] Onset: 11-01-2020 Episodic Other circulatory disease (3 sources) Other specified symptoms and signs involving the circulatory and respiratory systems; Translations: [Other specified symptoms and signs involving the circulatory and respiratory systems] Onset: 12-06-2020 Episodic Spondylosis; intervertebral disc disorders; other back [...] She came in on Wednesday and saw [facility] - gave her cream but the pharmacy [...] well. The patient is breast feeding the . There are no feeding difficulties. Menstruation: has [...] Unclassified (20 sources) wart - Pt. saw [facility] 03/11/15 and cryo surgery was preformed on [...] sleeps 7 hours per night. 08-30-2024 Unclassified (12 sources) Well adult female - The patient [...] Test Name Value Interpretation Reference Range Facility EGD Reporton 03-01-2025 EGD Report [facility] Medical Records Department [address] [place] [address] EGD Report MR#: [id number] Acct: [id number] Name: SIMA KEEN Rep #: [id number] : 1985 39 From: David Cano MD PCP: ANIBAL Workman Status:REG [facility] Patient Name: Sima Keen Procedure Date: 03/01/2025 7:12 AM Date of : 1985 Age: 39 Procedure: Upper GI endoscopy Indications: Eosinophilic esophagitis, Follow-up of eosinophilic esophagitis Providers: David Cano [...] patient tolerated the procedure well. Scope In: 7:56:43 AM Scope Out: 8:10:10 AM Total Procedure Duration Time 0 hours 13 minutes 27 seconds Findings: No gross lesions were noted in the entire examined duodenum. No biopsies or other specimens were collected for this exam. Localized mildly erythematous mucosa without bleeding was found in the gastric antrum. Biopsies were taken with a cold forceps for histology. Estimated blood loss was minimal. The cardia and gastric fundus were normal on retroflexion. Localized moderate mucosal changes characterized by linear erosions were found in the lower third of the esophagus. Biopsies were taken with a cold forceps for histology. Estimated blood loss was minimal. Multiple 5 to 10 mm plaques were found in the middle third of the esophagus and in the lower third of the esophagus. Biopsies were taken with a cold forceps for histology. Estimated blood loss was minimal. A single 5 mm mucosal nodule with a localized distribution was found in the upper third of the esophagus. The nodule was Martita classification Is (protruding, sessile). Biopsies were taken with a cold forceps for histology. Estimated blood loss: Minimal. Impression: - No gross lesions in the entire examined duodenum. No specimens collected. - Erythematous mucosa in the antrum. Biopsied. - Linearly eroded mucosa in the esophagus. Biopsied. 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 Biopsied. - Mucosal nodule found in the esophagus. Biopsied. Recommendation: - Discharge patient to home (via wheelchair). - Soft diet today. - No aspirin, ibuprofen, naproxen, or other non-steroidal anti-inflammatory drugs for 2 days after biopsy. - Await pathology results. - Telephone my office for pathology results in 1 week. Procedure Code(s): --- Professional --- 71699, Esophagogastroduodenoscopy, flexible, transoral; with biopsy, single or multiple Diagnosis Code(s): --- Professional --- K31.89, Other diseases of stomach and duodenum K22.10, Ulcer of esophagus without bleeding K22.89, Other specified disease of esophagus K20.0, Eosinophilic esophagitis CPT copyright 2021 [employer]. All rights reserved. The codes documented in this report are preliminary and upon performance engineer review may be revised to meet current compliance requirements. David Cano MD 03/01/2025 8:20:08 AM This report has been signed electronically. Number of Addenda: 0 Note Initiated On: 03/01/2025 7:12 AM 03/01/25820 Date David Naranjo Signature: Date (if indicated) CC: Dr. David Cano MD; ANIBAL Workman Date Dictated: 03/01/25711 Date Transcribed: Mental Tester: MIGDALIA Signed Normal [facility] Immunohistochemical Stainson 03-01-2025 Immunohistochemical Stains Patient Age/Sex Location Account Attending Physician SIMA KEEN 39/F EN [id number] Dr. David Cano MD Specimen: [id number] Received: 03/01/25 Status: AZRA Gale Num: [id number] Spec Type: EGD BIOPSY Subm Dr: Dr. David Cano MD HEADER OPERATION: EGD with biopsy PRE-OP DIAGNOSIS: Eosinophilic esophagitis TISSUE SUBMITTED: A- Antrum biopsy, B- Distal esophagus biopsy, C- Mid esophageal plaque,D- Proximal esophageal nodule, E- Distal esophageal plaque MICROSCOPIC DIAGNOSIS A. Antrum, biopsy: - Chronic gastritis. - IHC for H pylori is pending and will be reported in an addendum. B. Distal esophagus, biopsy: - Squamous mucosa with reactive changes. - Greater than 80 eosinophils per high power field. C. Mid esophagus, plaque, biopsy: - Squamous mucosa with reactive changes. - Greater than 70 eosinophils per high power field. D. Proximal esophagus, biopsy: - Squamous mucosa with reactive changes. - Greater than 50 eosinophils per high power field. E. Distal esophagus, plaque, biopsy: - Squamous mucosa with reactive changes. - 10 eosinophils per high power field. MICROSCOPIC DESCRIPTION Slides are reviewed. All matched controls reacted appropriately. These tests were developed and their performance characteristics determined by [facility]. They may not have been cleared or approved by the U.S. Food and Drug Administration. The FDA has determined that such clearance or approval is not necessary. The above immunohistochemical markers are reviewed by the Pathologist. GROSS DESCRIPTION A. Received in fixative is one container labeled with the patient's name and designated Antrum biopsy. The specimen consists of one irregular fragment of light judge soft tissue that measures 0.6 cm. The specimen is totally submitted in one cassette. B. Received in fixative is one container labeled with the patient's name and designated Distal esophagus mucosa. The specimen consists of two irregular fragments of light judge Patient Age/Sex Location Account Attending Physician SIMA KEEN 39/F EN [id number] Dr. David Cano MD soft tissue that measure 0.3 and 0.6 cm. The specimen is totally submitted in one cassette. C. Received in fixative is one container labeled with the patient's name and designated Mid esophageal plaque. The specimen consists of one irregular fragment of light judge soft tissue that measures 0.7 cm. The specimen is totally submitted in one cassette. D. Received in fixative is one container labeled with the patient's name and designated Proximal esophageal nodule. The specimen consists of one irregular fragment of light judge soft tissue that measures 0.5 cm. The specimen is totally submitted in one cassette. E. Received in fixative is one container labeled with the patient's name and designated Distal esophageal plaque. The specimen consists of two irregular fragments of light judge soft tissue that measure 0.1 and 0.6 cm. The specimen is totally submitted in one cassette. HI 03/01/2025 [facility]:[id number] ADDENDUM Addendum 1 Entered: 03/05/256755 This addendum is to report the result of the H pylori IHC on part A: A. IHC negative for H. pylori organisms. Addendum Signed (signature on file) Dr. Anusha Jay MD 03/05/25 1457 Patient Age/Sex Location Account Attending Physician SIMA KEEN 39/F EN [id number] Dr. David Cano MD Signed (signature on file) Dr. Anusha Jay MD 03/04/25 1314 Normal [facility] Comment on above: Performed By: #### P FÁTIMA GENAO #### [facility] [address] [place], [place], [address] MR/OP.PROVATon 03-01-2025 MR/OP.PROVAT [facility] Medical Records Department [address] [facility] [place] [address] Provation Physician Letter MR#: [id number] Acct: [id number] Name: SIMA KEEN Rep #: [id number] : 1985 39 From: David Cano MD PCP: ANIBAL Workman Status:REG [facility] 03/01/2025 Alanis Batista Re : Upper GI endoscopy procedure for Sima Keen Deborah Batista This procedure was performed on February. My impressions and recommendations are as follows: Impressions : - No gross lesions in the entire examined duodenum. No specimens collected. - Erythematous mucosa in the antrum. Biopsied. - Linearly eroded mucosa in the esophagus. Biopsied. 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 Biopsied. - Mucosal nodule found in the esophagus. Biopsied. Recommendations : - Discharge patient to home (via wheelchair). - Soft diet today. - No aspirin, ibuprofen, naproxen, or other non-steroidal anti-inflammatory drugs for 2 days after biopsy. - Await pathology results. - Telephone my office for pathology results in 1 week. My findings are described in the full procedure note, which is enclosed. If I can be of further assistance, please feel free to contact me at Doctor phone number(s): , Work: . Sincerely, David Cano MD 03/01/2025 8:20:08 AM This report has been signed electronically. 03/01/25820 Date David Cano MD Cosigner Signature: Date (if indicated) CC: Dr. David Cano MD; ANIBAL Workman Date Dictated: 03/01/25711 Date Transcribed: Mental Tester: MIGDALIA Signed [facility] MR/POSTOP.[facility] 03-01-2025 MR/POSTOP.[facility] Medical Records Department [address] [place] [address] Anesthesia Postop Eval I 03/01/25811 MR#: [id number] Acct: [id number] Name: SIMA KEEN Rep #: [id number] : 1985 39 From: Modesto Nunez CRNA PCP: ANIBAL Workman Status:REG SDC Y Race: C Location: [place] [address] Anesthesia: Postop Eval I Current Vital Signs Temperature: 98 F Pulse Rate: 76 Blood Pressure: 82/54 Respiratory Rate: 16 Pulse Ox: 95 Oxygen Delivery Method: Room Air Assessment Airway patent: Yes Spontaneous unlabored respirations: Yes Mental status: Awake and Calm nausea: No Vomiting: No Anesthesia Complication: No Fluid Hydration Crystalloid volume administer (ml): 300 Total IV fluid infused: 300 Progress Note Anesthesia document: Postop Eval 1 completed: Yes 03/01/25813 Date Modesto Dotterer PRINCIPAL MECHANICAL ENGINEER Cosigner Signature: Date CC: Signed [facility] MR/[id number] 03-01-2025 MR/POSTOPAN2 [facility] Medical Records Department [address] [place] [address] Anesthesia Postop Eval II 03/01/25823 MR#: [id number] Acct: [id number] Name: SIMA KEEN Rep #: [id number] : 1985 39 From: Modesto Nunez CRNA PCP: ANIBAL Workman Status:REG SDC Y Race: C Location: [facility]06-18 Anesthesia Postop Eval I Sum Postop Eval Completion status Anesthesia document: Postop Eval 1 completed: Yes Anesthesia Postop Eval I Summary Anesthesia Postop Eval I Summary: Anesthesia Postop Eval I: Assessment Summary Airway patent Yes 03/01/25 08:14 PRINCIPAL MECHANICAL ENGINEER.MDOT Spontaneous unlabored Yes 03/01/25 08:14 PRINCIPAL MECHANICAL ENGINEER.MDOT respirations Mental status Awake,Calm 03/01/25 08:14 PRINCIPAL MECHANICAL ENGINEER.MDOT nausea No 03/01/25 08:14 PRINCIPAL MECHANICAL ENGINEER.MDOT Vomiting No 03/01/25 08:14 PRINCIPAL MECHANICAL ENGINEER.MDOT Anesthesia Postop Eval I: Fluid Summary Crystalloid volume administer 300 03/01/25 08:14 PRINCIPAL MECHANICAL ENGINEER.MDOT (ml) Colloids volume administered ( ml) Blood Product volume administered (ml) Total IV fluid infused 300 03/01/25 08:14 PRINCIPAL MECHANICAL ENGINEER.KAREL Anesthesia Postop Eval I: Summary Notes Anesthesia Complication No 03/01/25 08:14 PRINCIPAL MECHANICAL ENGINEER.MDOT Anesthesia Complication Comment: Post-operative progress note Anesthesia: Postop Eval II Evaluation Mental status: Awake and Calm Pain Level: 0 nausea: No Vomiting: No Complications Anesthesia Complication: No 03/01/25823 Modesto Nunez PRINCIPAL MECHANICAL ENGINEER Cosigner Signature: Date CC: Signed [facility] ,Urineon 03-01-2025 Beta HCG ( test) Ql (U) Negative [facility] Comment on above: Result Comment: Very dilute urine specimens, as indicated by a low specific gravity, may not contain business process representative levels of hCG. If is still suspected, a first morning urine specimen should be collected 48 hours later and tested. Performed By: #### P GEOVANI #### [facility] [place], [place], [address] Surgery Specimen Level IIIon 03-01-2025 Surgery Specimen Level III Patient Age/Sex Location Account Attending Physician SIMA KEEN 39/F EN [id number] Dr. David Cano MD Specimen: [id number] Received: 03/01/25 Status: AZRA Gale Num: [id number] Spec Type: EGD BIOPSY Subm Dr: Dr. David Cano MD HEADER OPERATION: EGD with biopsy PRE-OP DIAGNOSIS: Eosinophilic esophagitis TISSUE SUBMITTED: A- Antrum biopsy, B- Distal esophagus biopsy, C- Mid esophageal plaque,D- Proximal esophageal nodule, E- Distal esophageal plaque MICROSCOPIC DIAGNOSIS A. Antrum, biopsy: - Chronic gastritis. - IHC for H pylori is pending and will be reported in an addendum. B. Distal esophagus, biopsy: - Squamous mucosa with reactive changes. - Greater than 80 eosinophils per high power field. C. Mid esophagus, plaque, biopsy: - Squamous mucosa with reactive changes. - Greater than 70 eosinophils per high power field. D. Proximal esophagus, biopsy: - Squamous mucosa with reactive changes. - Greater than 50 eosinophils per high power field. E. Distal esophagus, plaque, biopsy: - Squamous mucosa with reactive changes. - 10 eosinophils per high power field. MICROSCOPIC DESCRIPTION Slides are reviewed. All matched controls reacted appropriately. These tests were developed and their performance characteristics determined by [facility]. They may not have been cleared or approved by the U.S. Food and Drug Administration. The FDA has determined that such clearance or approval is not necessary. The above immunohistochemical markers are reviewed by the Pathologist. GROSS DESCRIPTION A. Received in fixative is one container labeled with the patient's name and designated Antrum biopsy. The specimen consists of one irregular fragment of light judge soft tissue that measures 0.6 cm. The specimen is totally submitted in one cassette. B. Received in fixative is one container labeled with the patient's name and designated Distal esophagus mucosa. The specimen consists of two irregular fragments of light judge Patient Age/Sex Location Account Attending Physician SIMA KEEN 39/F EN [id number] Dr. David Cano MD soft tissue that measure 0.3 and 0.6 cm. The specimen is totally submitted in one cassette. C. Received in fixative is one container labeled with the patient's name and designated Mid esophageal plaque. The specimen consists of one irregular fragment of light judge soft tissue that measures 0.7 cm. The specimen is totally submitted in one cassette. D. Received in fixative is one container labeled with the patient's name and designated Proximal esophageal nodule. The specimen consists of one irregular fragment of light judge soft tissue that measures 0.5 cm. The specimen is totally submitted in one cassette. E. Received in fixative is one container labeled with the patient's name and designated Distal esophageal plaque. The specimen consists of two irregular fragments of light judge soft tissue that measure 0.1 and 0.6 cm. The specimen is totally submitted in one cassette. HI 03/01/2025 CPT:[id number] Patient Age/Sex Location Account Attending Physician SIMA KEEN 39/F EN [id number] Dr. David Cano MD Signed (signature on file) Dr. Anusha Jay MD 03/04/25 1314 Normal [facility] Comment on above: Performed By: #### P FÁTIMA GENAO #### [facility] Leandro [place], [place], [address] T4 Free SerPl-ncon 03-01- 025 Free T4 [Mass/Vol] 1.8 ng/dL High 0.9-1.7 [facility] Comment on above: Order Comment: Speci men Type: BLOOD SPECIMENOrdering Facility: [facility] Address: [address] [place] [address] Performed By: #### 3 016-3, 3024-7 ####[facility] LABCLIA [id number] [place] [address] [place] TSH SerPl-aCncon 03-01-2025 TSH Qn 0.315 m[IU]/L Normal 0.270-4.20 0 [facility] Comment on above: Order Comment: Specjin shipley Type: BLOOD SPECIMENOrdering Facility: [facility] Address: [address] [place] [address] Result Comment: If t he patient is , TSH reference range varies by gestational period: First Trimester (weeks 9-12): 0.180-2.990 mIU/L Second Trimester: 0.110-3.980 mIU/L Third Trimester: 0.480-4.710 mIU/L Andrew Garcia et al. A Practical Approach for the Verifications and Determination of Site- and Trimester-Specific Reference Intervals for Thyroid Function tests in . Thyroid, 2019:29:3:412-420. Isaac E, et al. 2017 Guidelines of the [place] Thyroid Association for the Diagnosis and Management of Thyroid Disease during and the . Thyroid, 2017:27:3:315-389. Performed By: #### 3 016-3, 3024-7 ####[facility] LABCLIA [id number] [place] [id number] [place] Thyroglobulin and Thyrogobul in Ab panelon 03-01-2025 Thyroglobulin Ab Qn 2.4 [IU]/mL Normal <4.0 [facility] Comment on above: Order Comment: Xavier shipley Type: BLOOD SPECIMENOrdering Facility: [facility] Address: [address] [place] [address] Result Comment: The Thyroglobulin Antibody test was performed using the Panelflyel DXI paramagnetic particle chemiluminescent immunoassay method. Results obtained with different assay methods or kits cannot be used interchangeably. Performed By: #### 5 7780-9 ####[facility] LABCLIA [id number] [place] [address] [place] THYROGLOBULIN, SERUM 0.2 ng/mL Low 1.6-50.0 [facility] Comment on above: Order Comment: Speci men Type: BLOOD SPECIMENOrdering Facility: [facility] Address: [address] [place] [address] Result Comment: The Thyroglobulin test was performed using the Jose ThinkHR Unicel DXI paramagnetic particle chemiluminescent immunoassay method. Results obtained with different assay methods or kits cannot be used interchangeably. Performed By: #### 5 7780-9 ####[facility] LABCLIA [id number] [place] [address] [place] Urine testOrdered By: Elliott Reynaga on 03-01-2025 HCG ( test) Ql (U) Negative [facility] Comment on above: Very dilute urine sp ecimens, as indicated by a low specificgravity, may not contain business process representative levels of hCG. If is still suspected, a first morning urinespecimen should be collected 48 hours later and tested. Marlo 02-14-2025 CNPN Telephone (ENDLKW) SIMA KEEN ([id number]) 1985 F Date Time Provider Department 02/14/25 BOBBI DE LA PAZ During your visit today, we recorded the following information about you: Elyse Perez 02/14/2025 7:14 AM Signed Bobbi De La Paz MD P [facility] Clerical Pool please call this patient and help her set up a virtual visit for 6 weeks 1st attempt sent karthikeyan Perez Allergies As of Date: 02/14/2025 Noted Allergy Reaction CEFACLOR 12/06/2024 2 - Rash Date Reviewed: 01/11/2025 Reviewed by: Sally Ellsworth, RN - Fully Assessed Prescriptions as of 02/14/2025 - levothyroxine (SYNTHROID) 112 mcg tablet Take 1 tablet by mouth once daily. - calcium carbonate (TUMS) 500 mg chew Take 1 tablet by mouth every hour as needed (mouth or hand numbness or tingling). - pyubvrh-pukugesah-mctigbd D3 500 mg-5 mcg (200 unit) per [...] Encounter Status:Closed by ELYSE PEREZ on 02/14/25 [facility] Telephone (JOSEY) SIMA KEEN ([id number]) 1985 F Date Time Provider Department 02/14/25 JEYSON BUSTAMANTE During your visit today, we recorded the following information about you: IlirJohan 02/14/2025 11:00 AM Signed February 14, 2025 [id number] Patient Name: Sima Keen Contact Information: [phone] (home) [phone] (cell) Reason For Call: Patient is calling [...] by: Sally Ellsworth, RN - Fully Assessed Reason for Visit: Post Op [174] Prescriptions as of 02/14/2025 - levothyroxine (SYNTHROID) 112 mcg tablet Take 1 tablet by mouth once daily. - calcium carbonate (TUMS) 500 mg chew Take 1 tablet by mouth every hour as needed (mouth or hand numbness or tingling). - wexcxna-dxfohctho-mmuldfz D3 500 mg-5 mcg (200 unit) per [...] Encounter Status:Closed by JOYA ESCOBAR on 02/14/25 [facility] Marlo 01-30-2025 MARIA ELENA Telephone (ENSPADMINI) SIMA KEEN ([id number]) 1985 F Date Time Provider Department 01/30/25 JEYSON BUSTAMANTE During your visit today, we recorded the following information about you: Allergies As of Date: 01/30/2025 Noted Allergy Reaction CEFACLOR 12/06/2024 2 - Rash Date Reviewed: 01/11/2025 Reviewed by: Sally Ellsworth RN - Fully Assessed Reason for Visit: Appointment [186] Cmt: Left a message for patient to call [phone] to schedule a Consult with a [facility] Med for MI Treatment for Thyroid Cancer [...] (mouth or hand numbness or tingling). - qdycgwr-bxcwarpbb-malgzte D3 500 mg-5 mcg (200 unit) per [...] Encounter Status:Closed by EDITH HARMON on 01/30/25 [facility] Marlo 01-17-2025 [facility] E[facility]NA Telephone (JOSEY) SIMA KEEN ([id number]) 1985 F Date Time Provider Department 01/17/25 JEYSON BUSTAMANTE During your visit today, we recorded the following information about you: Johan Velázquez 01/17/2025 3:34 PM Signed Shanna Abarca, Patient called and is wondering if she can get a return to work form can you help with this please? Call back [phone] Allergies As of Date: 01/17/2025 Noted Allergy Reaction CEFACLOR 12/06/2024 2 - Rash Date Reviewed: 01/11/2025 Reviewed by: Sally Ellsworth, HEAVENLY - Fully Assessed Prescriptions as of 01/17/2025 - levothyroxine (SYNTHROID) 112 mcg tablet Take 1 tablet by mouth daily at 6 am. - calcium carbonate (TUMS) 500 mg chew Take 1 tablet by mouth every hour as needed (mouth or hand numbness or tingling). - zahdvsr-nqfrpquzj-ccxgxxh D3 500 mg-5 mcg (200 unit) per [...] Status:Closed by JOHAN VELÁZQUEZ on 01/17/25 Normal [facility] Calcium SerPl-mCncon 025 Calcium [Mass/Vol] 8.8 mg/dL Normal 8.5-10.[address] [facility] Comment on above: Order Comment: Speci men Type: BLOOD SPECIMEN Ordering Facility: [facility] Address: [address] [place] [address] Performed By: #### 1 7861-6 #### [facility] CLIA [id number] [place] [address] [place] PTH-Intact SerPl-mCncon 12-18 Parathyrin.intact [Mass/Vol] 31 pg/mL Normal 15-65 [facility] Comment on above: Order Comment: Speci men Type: BLOOD SPECIMEN Ordering Facility: [facility] Address: [place] [address] Performed By: #### 2 731-8 #### [facility] CLIA [id number] [place] [address] OF [facility] ANES POSTPROC EVALon 025 ANES POSTPROC EVAL HNO ID: [id number] Author: SAMUEL MATUTE MD Service: Anesthesiology Author Type: Anesthesiologist Type: Anesthesia Postprocedure Evaluation Filed: 01/11/2025 16:47 Note Text: POST ANESTHESIA EVALUATION NOTE : 1985 Procedure Summary Date: 01/11/25 Room / Location: [place] [address] / OR Anesthesia Start: 1232 Anesthesia Stop: 1610 Procedures: BIOPSY OR EXCISION LYMPH NODE(S) OPEN, DEEP CERVICAL (Right: Neck) LOBECTOMY THYROID UNILATERAL; WITH OR WITHOUT ISTHMUSECTOMY (Left: Thyroid) Diagnosis: Papillary carcinoma of thyroid (HCC) (Papillary carcinoma of thyroid (HCC) [C73]) Surgeons: Jeysno Bustamante MD Responsible Provider: Pablo Bray MD [...] January 11, 2025 TIME: 4:47 PM CSN: [id number] [facility] ANES PRE-OPon 01-11-2025 ANES PRE-OP HNO ID: [id number] Author: PABLO BRAY MD Service: Anesthesiology Author [...] January 11, 2025 TIME: 11:25 AM CSN: [id number] [facility] BRIEF OP NOTon 01-11-2025 BRIEF OP NOT HNO ID: [id number] Author: DAVID WINTER MD Service: Endocrine Surgery Author Type: Physician Type: Brief Op Note Filed: 01/11/2025 16:23 Note Text: Brief Operative Note Patient Name: Sima Keen LOG ID: [id number] Surgery/Procedure Date: 01/11/2025 Surgeon(s)/Proceduralist(s) and Reducer(s): Surgeons and Role: * Jeyson Bustamante MD [...] MD DATE: 01/11/25 TIME: 4:22 PM Normal [facility] OPERATIVE NOon 01-11-2025 OPERATIVE NO HNO ID: [id number] Author: JEYSON BUTSAMANTE MD Service: Endocrine Surgery Author Type: Physician Type: Operative Report Filed: 01/15/2025 08:13 Note Text: [facility] - Operative Report SIMA KEEN : 1985 AGE: 39. SEX: F PATIENT TYPE: A HOSP SVC: Surgical LOCATION: [facility] ATTENDING PHYSICIAN: Jeyson Bustamante MD CSN NUMBER: [id number] DATE OF SURGERY/PROCEDURE: 01/11/2025 INCISION/PROCEDURE START TIME: 1:00 PM INCISION CLOSE/PROCEDURE END TIME: 4:01 PM PREOPERATIVE DIAGNOSIS: Prior right thyroid lobectomy for papillary thyroid cancer with right central neck masses. POSTOPERATIVE DIAGNOSIS: Same SURGEON: Jeyson Bustamante MD REEL SYSTEM OPERATOR: Dr. David Winter. SURGERY/PROCEDURE: Reoperative right central neck dissection, left thyroid lobectomy, intraoperative ultrasonography. ANESTHESIA: General. [facility] . COMPLICATIONS: None. ESTIMATED BLOOD LOSS: [...] right thyroid lobectomy that was performed at [facility] on 12/28/2020. Final pathology demonstrated 1.8 cm [...] of undetermined significance. These were submitted for [facility] molecular profiling and were both in the [...] OF PROCEDURE: Pa (more content not included)... [facility] Pathology biopsy report Torito (Tiss)on 01-11-2025 AP DISCLAIMER [facility] Comment on above: Order Comment: Speci violetta Type: TISSUE SPECIMEN Ordering Facility: [facility] Address: [address] [place] [address] Result Comment: Dennis ni Developed Test (LDT) Disclaimer: Performance characteristics of immunohistochemical, immunofluorescent, and chromogenic in-situ hybridization tests have been determined by the performing laboratory within [facility] Pathology and Laboratory Medicine Department ([facility], [facility], [facility], [facility], [facility], [facility], or [facility]) in a manner consistent with CLIA requirements. One or more of these tests may not have been cleared or approved by the FDA. RT[facility] is regulated under CLIA as qualified to perform high-complexity testing. These tests are used for clinical purposes. These should not be regarded as investigational or for research. Positive and negative controls stain appropriately. Performed By: #### 6 6121-5 #### [facility] CLIA [id number] [address] [place] [address] LABORATORY CLIA [id number] [address] [place] [address] [place] CASE REPORT [facility] Comment on above: Order Comment: Speci men Type: TISSUE SPECIMEN Ordering Facility: [facility] Address: [address] [place] [address] Result Comment: Surg [facility] Pathology Report Case: [id number] Authorizing Provider: Jeyson Bustamante MD Collected: 01/11/2025 01:05 PM Ordering Location: [facility] Received: 01/11/2025 01:40 PM Pathologist: Ana Duong MD Intraop: Vince Dos Santos MD Specimens: A) - Skin, Scar, scar neck incision B) - Soft Tissue, Mass, Resection, right central neck mass C) - Soft Tissue, Mass, Resection, right anterior tracheal mass D) - Thyroid, Left, Lobe E) - Soft Tissue, Mass, Resection, right central neck contents Performed By: #### 6 6121-5 #### [facility] CLIA [id number] [address] [place] [address] LABORATORY CLIA [id number] [address] [place] [address] CLINICAL HISTORY [facility] Comment on above: Order Comment: Speci men Type: TISSUE SPECIMEN Ordering Facility: [facility] Address: [address] [place] [address] Result Comment: Pre- op diagnosis: Papillary carcinoma of thyroid (HCC) [C73] Performed By: #### 6 6121-5 #### [facility] CLIA [id number] [address] [place], [place] [address]UNT [facility] CLIA [id number] [address] [place] [address] [place] DIAGNOSIS COMMENT The largest involved lymph node measures 2.5 cm in greatest dimension (part B) and show focal extranodal extension (1 mm). [facility] Comment on above: Order Comment: Speci men Type: TISSUE SPECIMEN Ordering Facility: [facility] Address: [address] [place] [address] Performed By: #### 6 6121-5 #### [facility] CLIA [id number] [address] [place] [address] LABORATORY CLIA [id number] [address] [place] [address] [place] FINAL DIAGNOSIS [facility] Comment on above: Order Comment: Speci men Type: TISSUE SPECIMEN Ordering Facility: [facility] Address: [address] [place] [address] Result Comment: A. S kin, scar neck [...] EDT Performed By: #### 6 6121-5 #### [facility] CLIA [id number] [address] [place] [address] [place] [facility] CLIA [id number] [address] [place] [address] STATES OF [facility] FINAL PERFORMING LAB [facility] Comment on above: Order Comment: Speci men Type: TISSUE SPECIMEN Ordering Facility: [facility] Address: [address] [place] [address] Result Comment: Diag nostic interpretation performed at: [facility], [address] [place], [place] [address] CLIA# [id number] Foster [facility] Social Worker: Nilton Le MD Performed By: #### 6 6121-5 #### [facility] CLIA [id number] [address] [place] [address] [place] [facility] CLIA [id number] [address] [place] [address] [place] GROSS DESCRIPTION A. Skin, Scar [facility] Comment on above: Order Comment: Speci men Type: TISSUE SPECIMEN Ordering Facility: [facility] Address: [address] [place] [address] Result Comment: Rece ived in formalin labeled scar neck incision is a an oriented skin ellipse measuring 4.0 x 0.7 cm and excised to a maximum depth of 0.7 cm. The skin surface shows a linear, judge-white discolored area consistent with previous scar measuring 2.5 cm in length by 0.1 cm in diameter. Sectioning through this area shows judge-white fibrotic cut surfaces. Supervisor Prop Making tissue is submitted in A1. B. Soft Tissue, Mass, Resection Received fresh for intraoperative consultation is a single piece of red-brown soft tissue measuring 2.5 x 2.3 x 1.5 cm. It is serially sectioned and a business process representative section is submitted as FSB1. A touch prep also performed. The remaining tissue is submitted in B2-B3 for routine processing. C. Soft Tissue, Mass, Resection Received fresh for intraoperative consultation is a single piece of judge-red soft tissue measuring 1.4 x 0.8 x 0.7 cm. A business process representative section is submitted as FSC1. 2 touch preps also performed. The remaining tissue is submitted in C2 for routine processing. Gross examination performed at [facility], [address] [address] , [address] [id number] Gross examination performed at [facility], [address] [place] [address] MSL/CORY 01/12/25 8:45 AM D. Thyroid, Left, Lobe Labeled: ???Thyroid, left, lobe??? Received: In formalin Specimen type: Lobectomy without attached skeletal muscle, lymph nodes, or large vessels Oriented: Now Weight: 19.6 grams Size: 6.0 x 3.5 x 2.0 cm Left lobe: 6.0 x 3.0 x 1.5 cm Isthmus: 2.5 x 1.5 x 0.8 Ink code: Blue- External surface of the left lobe Floyd - Resection margin of isthmus Sectioning: The [...] candidates, in toto [place] [address] MSL/CORY 01/12/25 12:59 PM Performed By: #### 6 6121-5 #### [facility] CLIA [id number] [address] [place] [address] STATES OF [facility] CLIA [id number] [address] [place] [address] STATES OF [facility] INTRAOPERATIVE DIAGNOSIS Normal [facility] Comment on above: Order Comment: Speci men Type: TISSUE SPECIMEN Ordering Facility: [facility] Address: [address] [place] [address] Result Comment: B. S oft Tissue, Mass, Resection FSB1 and touch prep: Atypical thyroid follicles and adjacent lymphoid tissue, cannot exclude carcinoma (Dr. Dos Santos/Saira/Jonel, using telepathology) C. Soft Tissue, Mass, Resection FSC1 and touch preps: Atypical thyroid follicles including within lymphoid tissue, cannot exclude carcinoma (Dr. Dos Santos/Saira/Jonel, using telepathology) Intraoperative diagnosis performed at [facility], [address] [place] [address] CLIA# [id number] Performed By: #### 6 6121-5 #### [facility] CLIA [id number] [address] [place] [address] [place] [facility] CLIA [id number] [address] [place] [address] [place] HISTORY PHYSICALon 5 HISTORY PHYSICAL HNO ID: [id number] Author: DINA NAJERA APRN.NEWSCAST DIRECTOR Service: ? Author Type: Nurse Practitioner Type: [...] visit. Either the patient or their legal business process representative has been informed of the risks [...] large neck Non-male patient STOP-Bang Score: 1 [id number] Score: Age: <65 Sex: female CHF history: No Hypertension history: No Stroke/TIA/thromboembolism history: No Vascular disease history: No Diabetes history: No [id number] Score: 1 ARISCAT Score: Age: <=50 Preoperative [...] back to (more content not included)... Normal [facility] Basic metabolic 2000 panelon 12-06-2024 Anion gap [Moles/Vol] 10 mmol/L Normal 8-15 [facility] Comment on above: Order Comment: Speci men Type: BLOOD SPECIMENOrdering Facility: [facility] Address: [address] [place] [address] Performed By: #### 2 4321-2, 3 ####[facility] LABCLIA [id number] [place] [address] [place] Calcium [Mass/Vol] 9.3 mg/dL Normal 8.5-10.2 [facility] Comment on above: Order Comment: Speci men Type: BLOOD SPECIMENOrdering Facility: [facility] Address: [address] [place] [address] Performed By: #### 2 4321-2, 3 ####[facility] LABIA [id number] [place] [address] [place] Chloride [Moles/Vol] 104 mmol/L Normal 98-107 [facility] Comment on above: Order Comment: Speci men Type: BLOOD SPECIMENOrdering Facility: [facility] Address: [address] [place] [address] Performed By: #### 2 4321-2, 3 ####[facility] LABCLIA [id number] [place] [address] [place] CO2 [Moles/Vol] 25 mmol/L Normal 22-30 [facility] Comment on above: Order Comment: Speci men Type: BLOOD SPECIMENOrdering Facility: [facility] Address: [address] [place] [address] Performed By: #### 2 4321-2, 6-3 ####[facility] LABIA [id number] [address] [address] [place] Creatinine [Mass/Vol] 0.57 mg/dL Low 0.58-0.96 [facility] Comment on above: Order Comment: Xavier shipley Type: BLOOD SPECIMENOrdering Facility: [facility] Address: [address] [place] [address] Performed By: #### 2 4321-2, 3015-3 ####[facility] [id number] [address] STATES [place] Creatinine and Glomerular filtration rate.predicted panel (S/P/Bld) 119 mL/min/1.73m??? Normal >=60 [facility] Comment on above: Order Comment: Xavier shipley Type: BLOOD SPECIMENOrdering Facility: [facility] Address: [address] [place] [address] Result Comment: Nemo mated Glomerular Filtration Rate [...] reflect actual GFR. Performed By: #### 2 432-2, 3015-3 ####[facility] [id number] [address] [address] [place] Glucose [Mass/Vol] 95 mg/dL Normal 74-99 [facility] Comment on above: Order Comment: Xavier shipley Type: BLOOD SPECIMENOrdering Facility: [facility] Address: [address] [place] [address] Result Comment: The [place] Diabetes Association (ADA) provides guidance for cutoff [...] Standards of Medical Care in Diabetes 2016, [place] Diabetes Association. Diabetes Care. 2016.39(Suppl 1). Performed By: #### 2 4321-2, 3015-3 ####[facility] LABCLIA [id number] [address] [address] [place] Potassium [Moles/Vol] 4.3 mmol/L Normal 3.7-5.1 [facility] Comment on above: Order Comment: Xavier shipley Type: BLOOD SPECIMENOrdering Facility: [facility] Address: [address] [place] [address] Performed By: #### 2 4320-, 3 ####[facility] LABIA [id number] [address] [place] [address] [place] Sodium [Moles/Vol] 139 mmol/L Normal 136-144 [facility] Comment on above: Order Comment: Xavier shipley Type: BLOOD SPECIMENOrdering Facility: [facility] Address: [address] [place] [address] Performed By: #### 2 4320-, 3 ####[facility] LABCLIA [id number] [address] [address] [place] Urea nitrogen [Mass/Vol] 6 mg/dL Low 7-21 [facility] Comment on above: Order Comment: Parisai men Type: BLOOD SPECIMENOrdering Facility: [facility] Address: [address] [place] [address] Performed By: #### 2 4320-2, 3015-3 ####[facility] LABCLIA [id number] [address] [place] [address] [place] CBC panel Auto (Bld)on 12-06 Erythrocyte distribution width (RBC) [Ratio] 12.5 % Normal 11.5-15.0 [facility] Comment on above: Order Comment: Speci men Type: BLOOD SPECIMENOrdering Facility: [facility] Address: [address] [place] [address] Performed By: #### 5 8410-2 ####[facility] LABIA [id number] [address] STATES [facility] Hematocrit (Bld) [Volume fraction] 44.5 % Normal 36.0-46.0 [facility] Comment on above: Order Comment: Speci men Type: BLOOD SPECIMENOrdering Facility: [facility] Address: [address] [place] [address] Performed By: #### 5 8410-2 ####[facility] LABIA [id number] [address] [place] Hemoglobin (Bld) [Mass/Vol] 14.9 g/dL Normal 11.5-15.5 [facility] Comment on above: Order Comment: Speci men Type: BLOOD SPECIMENOrdering Facility: [facility] Address: [address] [place] [address] Performed By: #### 5 8410-2 ####[facility] LABIA [id number] [place] [address] [place] MCH (RBC) [Entitic mass] 30.0 pg Normal 26.0-34.0 [facility] Comment on above: Order Comment: Speci men Type: BLOOD SPECIMENOrdering Facility: [facility] Address: [address] [place] [address] Performed By: #### 5 8410-2 ####[facility] LABIA [id number] [place] [address] [place] MCHC (RBC) [Mass/Vol] 33.5 g/dL Normal 30.5-36.0 [facility] Comment on above: Order Comment: Speci men Type: BLOOD SPECIMENOrdering Facility: [facility] Address: [address] [place] [address] Performed By: #### 5 8410-2 ####[facility] LABIA [id number] [place] [address] [place] MCV (RBC) [Entitic vol] 89.7 fL Normal 80.0-100.0 [facility] Comment on above: Order Comment: Speci men Type: BLOOD SPECIMENOrdering Facility: [facility] Address: [address] [place] [address] Performed By: #### 5 8410-2 ####[facility] [id number] [place] [address] [place] Nucleated RBC (Bld) [#/Vol] 10*3/uL Normal <0.01 [facility] Comment on above: Order Comment: Speci men Type: BLOOD SPECIMENOrdering Facility: [facility] Address: [address] [place] [address] Performed By: #### 5 8410-2 ####[facility] [id number] [place] [address] [place] Platelet mean volume (Bld) [Entitic vol] 9.8 fL Normal 9.0-12.7 [facility] Comment on above: Order Comment: Speci men Type: BLOOD SPECIMENOrdering Facility: [facility] Address: [address] [place] [address] Performed By: #### 5 8410-2 ####[facility] LABIA [id number] [place] [address] [place] Platelets (Bld) [#/Vol] 276 10*3/uL Normal 150-400 [facility] Comment on above: Order Comment: Speci men Type: BLOOD SPECIMENOrdering Facility: [facility] Address: [address] [place] [address] Performed By: #### 5 8410-2 ####[facility] LABCLIA [id number] [place] [id number] [place] RBC (Bld) [#/Vol] 4.96 10*6/uL Normal 3.90-5.20 [facility] Comment on above: Order Comment: Speci men Type: BLOOD SPECIMENOrdering Facility: [facility] Address: [address] [place] [address] Performed By: #### 5 8410-2 ####[facility] LABCLIA [id number] [place] [id number] [place] WBC (Bld) [#/Vol] 8.00 10*3/uL Normal 3.70-11.00 [facility] Comment on above: Order Comment: Speci men Type: BLOOD SPECIMENOrdering Facility: [facility] Address: [address] [place] [address] Performed By: #### 5 8410-2 ####[facility] LABIA [id number] [place] [id number] [facility] Jose Maria 12-06-2024 CNOV Office Visit (JOSEY ) SIMA KEEN ([id number]) 1985 F Date Time Provider Department 12/06/24 12:30 PM JEYSON BUSTAMANTE During your visit today, we recorded the following information about you: Pulse Blood pressure Weight Height 75/minute 112/74 71.3 kg 1.711 m Last Period 12/05/24 Donavan Cerda MA 12/06/2024 12:26 PM Signed Thank you for choosing the [facility] Department of Endocrinology, Diabetes and Metabolism. Did you know that you need to call 48 hours in advance of your scheduled visit, if you are unable to make your appointment? The [facility] [place] thanks you for your commitment, because patients not showing to their appointment results in a lost opportunity for patients to receive [facility] health care at the [facility]. To Cancel an appointment, please choose one of the following: - Call the Appointment Call Center at [phone] - From [employer] software, Go to Appointments - Cancel Appts If cancelling, consider your need to reschedule to prevent further delays in your care. To Schedule an appointment, please choose one of the following: - Call the Appointment Call Center at [phone] - From [employer] software, Go to Appointments - Request an Appt [...] left in place. 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 Those slides have been reviewed here at the [facility] and feel that some of the [...] have been reviewed viewed here at the [facility] and agree with the interpretation [...] on froze (more content not included)... Normal [facility] TSH SerPl-aCncon 12-06-2024 TSH Qn 2.250 m[IU]/L Normal 0.270-4.20 0 [facility] Comment on above: Order Comment: Speci men Type: BLOOD SPECIMENOrdering Facility: [facility] Address: [address] [place] [address] Result Comment: If t he patient is , TSH reference range varies by gestational period: First Trimester (weeks 9-12): 0.180-2.990 mIU/L Second Trimester: 0.110-3.980 mIU/L Third Trimester: 0.480-4.710 mIU/L Andrew Garcia et al. A Practical Approach for the Verifications and Determination of Site- and Trimester-Specific Reference Intervals for Thyroid Function tests in . Thyroid, 2019:29:3:412-420. Isaac Yip, et al. 2017 Guidelines of the [place] Thy[employer] for the Diagnosis and Management of Thyroid Disease during and the . Thyroid, 2017:27:3:315-389. Performed By: #### 2 4321-2, 3016-3 ####[facility] LABIA [id number] [place] [id number] [place] OF [facility] Thyroglobulin and Thyrogobul in Ab panelon 12-06-2024 Thyroglobulin Ab Qn 3.4 [IU]/mL Normal <4.0 [facility] Comment on above: Order Comment: Xavier shipley Type: BLOOD SPECIMENOrdering Facility: [facility] Address: [address] [place] [address] Result Comment: The Thyroglobulin Antibody test was performed using the [employer] DXI paramagnetic particle chemiluminescent immunoassay method. Results obtained with different assay methods or kits cannot be used interchangeably. Performed By: #### 5 7780-9 ####[facility] LABIA [id number] [place] [id number] [place] THYROGLOBULIN, SERUM 27.6 ng/mL Normal 1.6-50.0 [facility] Comment on above: Order Comment: Xavier shipley Type: BLOOD SPECIMENOrdering Facility: [facility] Address: [address] [place] [address] Result Comment: The Thyroglobulin test was performed using the [employer] Unicel DXI paramagnetic particle chemiluminescent immunoassay method. Results obtained with different assay methods or kits cannot be used interchangeably. Performed By: #### 5 7780-9 ####[facility] LABIA [id number] [address] [address] [place] US Thyroid glandon [facility] Radiology Study observation (narrative) [facility] OUTSIDE CYTOLOGY SLIDE REVIE Won 05-12-2025 AP DISCLAIMER Normal [facility] Comment on above: Order Comment: Speci men Type: FORMALIN-FIXED PARAFFIN-EMBEDDED TISSUE SPECIMENOrdering Facility: AP Outside Review Address: , , Result Comment: Dennis ni Developed Test (LDT) Disclaimer: Performance characteristics of immunohistochemical, immunofluorescent, and chromogenic in-situ hybridization tests have been determined by the performing laboratory within [facility]'s [facility] Pathology and Laboratory Medicine Department ([facility], [facility], [facility], [facility], [facility], [facility], or [facility]) in a manner consistent with CLIA requirements. One or more of these tests may not have been cleared or approved by the FDA. RT-PLM is regulated under CLIA as qualified to perform high-complexity testing. These tests are used for clinical purposes. These should not be regarded as investigational or for research. Positive and negative controls stain appropriately. Performed By: #### L [id number] ####[facility] LABCLIA [id number] [place] [address] [place] CASE REPORT Normal [facility] Comment on above: Order Comment: Speci men Type: FORMALIN-FIXED PARAFFIN-EMBEDDED TISSUE SPECIMENOrdering Facility: AP Outside Review Address: , , Result Comment: [facility] Cytology Report Case: [id number] Authorizing Provider: Jeyson Bustamante MD Collected: 11/27/2024 09:38 PM Ordering Location: [facility] Received: 11/27/2024 09:35 PM [facility] Pathologist: Anabel Suarez MD Specimens: A) - Slide(s), RIGHT SUPERIOR LATERAL THYROID NODULE, FINE NEEDLE ASPIRATION, 6 OUTSIDE SLIDES, ([id number]), 10/04/2024 B) - Slide(s), RIGHT INFERIOR MEDIAL THYROID NODULE, FINE NEEDLE ASPIRATION, 6 OUTSIDE SLIDES, ([id number] B), 10/04/2024 Performed By: #### L [id number] ####[facility] LABCLIA [id number] [address] [address] [place] DIAGNOSIS COMMENT Aspirates from both thyroid nodules are limited by low cellularity and air drying. Both show cytologic atypia which is more apparent in the sample from the right inferior medial thyroid FNA (part B). The atypical cells in this sample are present in the background of a cyst. Normal [facility] Comment on above: Order Comment: Speci men Type: FORMALIN-FIXED PARAFFIN-EMBEDDED TISSUE SPECIMENOrdering Facility: AP Outside Review Address: , , Performed By: #### L [id number] ####[facility] LABCLIA [id number] [address] FINAL DIAGNOSIS Normal [facility] Comment on above: Order Comment: Speci [...] at 1520 EDT Performed By: #### L [id number] ####[facility] LABCLIA [id number] [address] FINAL PERFORMING LAB Normal [facility] Comment on above: Order Comment: Speci men Type: FORMALIN-FIXED PARAFFIN-EMBEDDED TISSUE SPECIMENOrdering Facility: AP Outside Review Address: , , Result Comment: Tech nical component, micro photographer screening performed at: [facility], [address] [place] [address] CLIA: [id number] Diagnostic interpretation performed at: [facility], [address] [place], [place] [address] CLIA# [id number] Foster Care Social Worker: Nilton Le MD Performed By: #### L [id number] ####[facility] LABCLIA [id number] [address] [address] [place] OUTSIDE SURG PATH SLIDE REVI EWon 11-27-2024 AP DISCLAIMER Normal [facility] Comment on above: Order Comment: Speci men Type: FORMALIN-FIXED PARAFFIN-EMBEDDED TISSUE SPECIMENOrdering Facility: AP Outside Review Address: , , Result Comment: Dennis ni Developed Test (LDT) Disclaimer: Performance characteristics of immunohistochemical, immunofluorescent, and chromogenic in-situ hybridization tests have been determined by the performing laboratory within [facility]'s [facility] Pathology and Laboratory Medicine Department ([facility], [facility], [facility], [facility], [facility], [facility], or [facility]) in a manner consistent with CLIA requirements. One or more of these tests may not have been cleared or approved by the FDA. RT-PLM is regulated under CLIA as qualified to perform high-complexity testing. These tests are used for clinical purposes. These should not be regarded as investigational or for research. Positive and negative controls stain appropriately. Performed By: #### L [id number] ####[facility] [id number] [address] [address] [place] CASE REPORT Normal [facility] Comment on above: Order Comment: Speci men Type: FORMALIN-FIXED PARAFFIN-EMBEDDED TISSUE SPECIMENOrdering Facility: AP Outside Review Address: , , Result Comment: Surg [facility] Pathology Report Case: [id number] Authorizing Provider: Jeyson Bustamante MD Collected: 11/27/2024 10:53 PM Ordering Location: [facility] Received: 11/27/2024 10:53 PM [facility] Pathologist: Latrell Mantilla MD Specimen: Slide(s), 28 SLIDES, [id number] Performed By: #### L [id number] ####[facility] LABIA [id number] [address] [address] [place] DIAGNOSIS COMMENT The [...] case and agrees with the diagnosis. Normal [facility] Comment on above: Order Comment: Speci men Type: FORMALIN-FIXED PARAFFIN-EMBEDDED TISSUE SPECIMENOrdering Facility: AP Outside Review Address: , , Performed By: #### L [id number] ####[facility] LABCLIA [id number] [address] FINAL DIAGNOSIS Normal [facility] Comment on above: Order Comment: Speci men Type: FORMALIN-FIXED PARAFFIN-EMBEDDED TISSUE SPECIMENOrdering Facility: AP Outside Review Address: , , Result Comment: A. R ight thyroid lobe, lobectomy and isthmusectomy (P71-1068): - Invasive papillary thyroid carcinoma, classic (conventional) subtype with fibrosis, 1.8 cm (See comment). at 1447 EDT Performed By: #### L [id number] ####[facility] LABCLIA [id number] [address] FINAL PERFORMING LAB Normal [facility] Comment on above: Order Comment: Speci men Type: FORMALIN-FIXED PARAFFIN-EMBEDDED TISSUE SPECIMENOrdering Facility: AP Outside Review Address: , , Result Comment: Diag nostic interpretation performed at: [facility], [facility] [place], [place] [id number] CLIA# [id number] Foster Care Social Worker: Nilton Le MD Performed By: #### L [id number] ####[facility] LABMATTHEW [id number] [address] OF [facility] Marlo 11-22-2024 CNPN Telephone (JOSEY) SIMA KEEN ([id number]) 1985 F Date Time Provider Department 11/22/24 [...] Thyroid Nodule PATIENT DEMOGRAPHICS Name: Sima Keen [facility]#: [id number] : 1985 AGE: [age] year old Contact Numbers: Home: (home) Work: There is no work phone number on file. PATIENT PHYSICIAN INFORMATION Referring Doctor: Dr.Michael Cano Address: Phone: Portrait Painter: Dr.Michael Cano Address: Phone: PCP: To use this Smartlink, specify the provider ID whose address you want to display, e.g., .PROVADDR[1 (where 1 is the provider ID). PAST TREATMENT Office notes: NONE AVAILABLE Medications: NONE THAT APPLY Pre-Visit Testing STUDY/TEST DATE ORDERED/REQUESTED DATE RECEIVED/COMPLETED ENTIRE PANEL TSH Per pt. Done 08/2024 FREE T4 FREE T3 Imaging Reports: SEE [facility] CD of Images: SEE [facility] FNA: YES 2020 FNA Slides: Has the patient ever had thyroid or parathyroid surgery before: YES PARTIAL THYROIDECTOMY Operative Reports: NONE AVAILABLE Pathology Reports: NONE AVAILABLE Allergies As of Date: 11/22/2024 (Not on File) Date Reviewed: Never Reviewed Reason for Visit: Consult [173] Cmt: FACE SHEET Problem List As Of Date: 11/22/2024 (None) Encounter Status:Closed by LUISA WHITE on 11/22/24 [facility] Marlo 10-26-2024 CNPN Telephone (ENSUMN) LEONILASIMA SEVILLA ([id number]) 1985 F Date Time Provider Department 10/26/24 [...] Encounter Status:Closed by JOYA ESCOBAR on 10/26/24 [facility] EGD Reporton 10-26-2024 EGD Report [facility] Medical Records Department [address] [place] [address] EGD Report MR#: [id number] Acct: [id number] Name: SIMA KEEN Rep #: [id number] : 1985 39 From: David Cano MD PCP: ANIBAL Workman Status:[facility] Patient Name: Sima Keen Procedure Date: 10/26/2024 [...] pathology results. Procedure Code(s): --- Professional --- 11438, Esophagogastroduodenoscopy, flexible, transoral; with biopsy, single or multiple Diagnosis Code(s): --- Professional --- K31.89, Other diseases of stomach and duodenum K29.70, Gastritis, unspecified, without bleeding K22.89, Other specified disease of esophagus R13.10, Dysphagia, unspecified K20.0, Eosinophilic esophagitis CPT copyright 2021 [employer]. All rights reserved. The codes documented in this report are preliminary and upon performance engineer review may be revised to meet current compliance requirements. David Cano MD 10/26/2024 10:21:30 AM This report has been signed electronically. Number of Addenda: 0 Note Initiated On: 10/26/2024 9:27 AM 10/26/24 1021 Date David Cano MD Cosigner Signature: Date (if indicated) CC: Dr. David Cano MD; ANIBAL Workman Date Dictated: 10/26/24926 Date Transcribed: Mental Tester: MIGDLAIA Signed [facility] Immunohistochemical Stainson 10-26-2024 Immunohistochemical Stains Patient Age/Sex Location Account Attending Physician SIMA KEEN/F EN [id number] Dr. David Cano MD Specimen: [id number] Received: 10/26/24 Status: AZRA Gale Num: [id number] Spec Type: EGD BIOPSY Subm Dr: Dr. [...] developed and their performance characteristics determined by [facility]. They may not have been cleared [...] Account Attending Physician SIMA KEEN 39/F EN [id number] Dr. David Cano MD C. Received in [...] in aggregate. Submitted in toto in D1. STEPHIEB 10/27/2024 CPT:56720r1,56490 Patient Age/Sex Location Account Attending Physician SIMA KEEN 39/F EN [id number] Dr. David Cano MD Signed (signature on file) Dr. Nelda Reilly DO 10/27/24 1414 [facility] Comment on above: Performed By: #### P [facility] #### [facility] [address] [place], [address] MR/POSTOP.ANEon 10-26-2024 MR/POSTOP.ANE [facility] Medical Records Department [address] [place] [address] Anesthesia Postop Eval I 10/26/24 1029 MR#: [id number] Acct: [id number] Name: SIMA KEEN Rep #: [id number] : 1985 39 From: Vince Gomez PCP: ANIBAL Workman Status:REG SDC Y Race: UTD Location: [place] [address] Anesthesia: Postop Eval I Current Vital Signs [...] Vince Naranjo Signature: Date CC: Signed Normal [facility] MR/IVQBRILG4dv 10-26-2024 MR/POSTOPAN2 [facility] Medical Records Department [address] [place] [address] Anesthesia Postop Eval II 10/26/24 1051 MR#: [id number] Acct: [id number] Name: SIMA KEEN Rep #: [id number] : 1985 39 From: Elliott Reynaga MD PCP: ANIBAL Workman Status:REG SDC Y Race: UTD Location: [place] [address] Anesthesia Postop Eval I Sum Postop Eval [...] No 10/26/24 1052 Date Elliott Reynaga MD Cosigner Signature: Date CC: Signed Normal [facility] ,Urineon 10-26-2024 Beta HCG ( test) Ql (U) Negative Normal [facility] Comment on above: Result Comment: Very dilute urine specimens, as indicated by a low specific gravity, may not contain business process representative levels of hCG. If is still suspected, a first morning urine specimen should be collected 48 hours later and tested. Performed By: #### L 400.7600 #### [facility] [place], [address] Urine testOrdered By: Pete Faria on 10-26-2024 HCG ( test) Ql (U) Negative [facility] Comment on above: Very dilute urine sp ecimens, as indicated by a low specificgravity, may not contain business process representative levels of hCG. If is still suspected, a first morning urinespecimen should be collected 48 hours later and tested. Head/Neck Soft Tissueon 04-0 Head/Neck Soft Tissue [facility] Imaging Services [address] [place] [address] Head/Neck Soft Tissue MR#: [id number] Acct: [id number] Name: SIMA KEEN Rep #: [id number] : 1985 F 39 From: Don Chaudhary DO PCP: ANIBAL Workman Status: REG CLI Study: Head/Neck Soft Tissue Date of Exam: 10/20/24 Exam# [id number] Ordering Dr: David Cano MD EXAM: Ultrasound [...] measurements and location given above. Reading Location: [facility] CC: Dr. David Cano MD; ANIBAL Workman Mental Tester: Signed Normal [facility] Non-gynecologic cytology rep ortOrdered By: Ramsey Sinclair on 10-10-2024 Study report [facility] Other Phone: Special Stain Group IIon Special Stain Group II Patient Age/Sex Location Account Attending Physician SIMA KEEN 39/F LABSPEC [id number] Dr. David Cano MD Specimen: [id number] Received: 10/04/24 Status: AZRA Gale Num: [id number] Spec Type: Fluid Subm Dr: Dr. David [...] nodule. Submitted for cytology preparation. 10/05/2024 CPT: 41061 x2, TC:5 ADDENDUM Patient Age/Sex Location Account Attending Physician SIMA KEEN 39/F LABSPEC [id number] Dr. David Cano MD ADDENDUM (Continued) Addendum 2 Entered: 11/30/24-1002 This addendum is added to incorporate an outside pathology consultation report. The case was examined at [facility] by Dr. Suarez (#[id number]) and the following diagnosis was rendered. A. [...] INTERPRETATION: The result of this 2.2 cm [place] III nodule A is Afirma GSC suspicious [...] Dr. Ramsey Sinclair MD 10/10/24 1332 Normal [facility] Comment on above: Performed By: #### P SSII #### [facility] [address] [place], [place], [id number] Surgery Visit Reporton 10-04 Surgery Visit Report [facility] Surgical [facility] [address] [place] [address] OFFICE VISIT Date of Service: 10/04/24 MR#: [id number] Acct: [id number] Name: SIMA KEEN Rep #: [id number] : 1985 Provider: Dr. David jones MD Age/Sex: 39/F Location: [facility] Status: Signed Intake Vital Signs 12/09/23 [...] patient in pain?: No Allergies cefaclor (From Ceclor) Allergy (Verified 10/04/24 13:17) Rash Medications ???Medication [...] and anxious (more content not included)... Normal [facility] Thyroidon 09-04-2024 Thyroid [facility] [address] [place] [address] Thyroid MR#: [id number] Acct: [id number] Name: SIMA KEEN Rep #: [id number] : 1985 F 39 From: Edgar Alvarez MD PCP: ANIBAL Workman Status: REG CLI Study: Thyroid Date of Exam: 09/04/24 Exam# [id number] Ordering Dr: Alanis Batista PROCEDURE: THYROID REASON [...] size Reading Location: [facility] CC: ANIBAL Workman Mental Tester: Signed Normal [facility] CBC (INCLUDES DIFF/PLT)on Basophils (Bld) [#/Vol] 0.057 10*3/uL Normal 0-200 [facility] Comment on above: Performed By: #### 6 399, 899, 67083 #### [facility] of [place] [address] [employer] Mechanic Helper: Mayur Barahona MD Basophils/100 WBC (Bld) 0.7 % Normal [facility] Comment on above: Performed By: #### 6 399, 899, 46528 #### [facility] [place] [address] [employer] Mechanic Helper: Mayur Barahona MD Eosinophils (Bld) [#/Vol] 0.356 10*3/uL Normal 15-500 [facility] Comment on above: Performed By: #### 6 399, 899, 24793 #### [facility] [place] [address] [employer] Mechanic Helper: Mayur Barahona MD Eosinophils/100 WBC (Bld) 4.4 % Normal [facility] Comment on above: Performed By: #### 6 399, 899, 38548 #### [facility] [place] [address] [employer] Mechanic Helper: Mayur Barahona MD Erythrocyte distribution width (RBC) [Ratio] 11.5 % Normal 11.0-15.0 [facility] Comment on above: Performed By: #### 6 399, 899, 37275 #### [facility] of [place] [address] [employer] Mechanic Helper: Mayur Barahona MD Hematocrit (Bld) [Volume fraction] 43.1 % Normal 35.0-45.0 [facility] Comment on above: Performed By: #### 6 399, 899, 38767 #### [facility] [place] [address] [employer] Mechanic Helper: Mayur Barahona MD Hemoglobin (Bld) [Mass/Vol] 14.5 g/dL Normal 11.7-15.5 [facility] Comment on above: Performed By: #### 6 399, 899, 42724 #### [facility] of [address], [address] [place] [address] [employer]electric Mach[employer] Mechanic Helper: Mayur Barahona MD Lymphocytes (Bld) [#/Vol] 2.649 10*3/uL Normal 850-3900 [facility] Comment on above: Performed By: #### 6 399, 899, 83196 #### [facility] of [address], [address] [place] [address] [employer]electric Mach[employer] Mechanic Helper: Mayur Barahona MD Lymphocytes/100 WBC (Bld) 32.7 % Normal [facility] Comment on above: Performed By: #### 6 399, 899, 04504 #### [facility] of [address], [address] [place] [address] [employer] Mechanic Helper: Mayur Barahona MD MCH (RBC) [Entitic mass] 29.7 pg Normal 27.0-33.0 [facility] Comment on above: Performed By: #### 6 399, 899, 88093 #### [facility] of [address], [address] [place] [address] [employer]electric Mach[employer] Mechanic Helper: Mayur Barahona MD MCHC (RBC) [Mass/Vol] 33.6 [...] condition. Performed By: #### 6 399, 899, 49949 #### [facility] of [place] [address] [employer] Mechanic Helper: Mayur Barahona MD MCV (RBC) [Entitic vol] 88.3 fL Normal 80.0-100.0 [facility] Comment on above: Performed By: #### 6 399, 899, 39360 #### [facility] of [address], [address] [place] [address] [employer]electric Mach[employer] Mechanic Helper: Mayur Barahona MD Monocytes (Bld) [#/Vol] 0.535 10*3/uL Normal 200-950 [facility] Comment on above: Performed By: #### 6 399, 899, 03128 #### [facility] of [place] [address] [employer] Mechanic Helper: Mayur Barahona MD Monocytes/100 WBC (Bld) 6.6 % Normal [facility] Comment on above: Performed By: #### 6 399, 899, 17986 #### [facility] [place] [address] [employer] Mechanic Helper: Mayur Barahona MD Neutrophils (Bld) [#/Vol] 4.504 10*3/uL Normal 8006-9853 [facility] Comment on above: Performed By: #### 6 399, 899, 29852 #### [facility] of [place] [address] [employer] Mechanic Helper: Mayur Barahona MD Neutrophils/100 WBC (Bld) 55.6 % Normal [facility] Comment on above: Performed By: #### 6 399, 899, 16020 #### [facility] [place] [address] [employer] Mechanic Helper: Mayur Barahona MD Platelet mean volume (Bld) [Entitic vol] 10.1 fL Normal 7.5-12.5 [facility] Comment on above: Performed By: #### 6 399, 899, 42264 #### [facility] [place] [address] [employer] Mechanic Helper: Mayur Barahona MD Platelets (Bld) [#/Vol] 299 10*3/uL Normal 140-400 [facility] Comment on above: Performed By: #### 6 399, 899, 32265 #### [facility] [place] [address] [employer] Mechanic Helper: Mayur Barahona MD RBC (Bld) [#/Vol] 4.88 10*6/uL Normal 3.80-5.10 [facility] Comment on above: Performed By: #### 6 399, 899, 22919 #### [facility] [place] [address] [employer] Mechanic Helper: Mayur Barahona MD WBC (Bld) [#/Vol] 8.1 10*3/uL Normal 3.8-10.8 [facility] Comment on above: Performed By: #### 6 399, 899, 38475 #### [facility] [place] [address] [employer] Mechanic Helper: Mayur Barahona MD T3, FREE 08-31-2024 Free T3 [Mass/Vol] 3.4 pg/mL Normal 2.3-4.2 [facility] Comment on above: Performed By: #### 6 399, 899, 22360 #### [facility] [place] [address] [employer] Mechanic Helper: Mayur Barahona MD T4, FREEon 08-31-2024 Free T4 [Mass/Vol] 1.2 ng/dL Normal 0.8-1.8 [facility] Comment on above: Performed By: #### 6 399, 899, 30226 #### [facility] [place] [address] [employer] Mechanic Helper: Mayur Barahona MD TSHon 08-31-2024 TSH Qn 2.25 m[IU]/L Normal [facility] Comment on above: Result Comment: Refe rence Range > or = 20 Years 0.40-4.50 Ranges First trimester 0.26-2.66 Second trimester 0.55-2.73 Third trimester 0.43-2.91 Performed By: #### 6 399, 899, 00777 #### [facility] [place] [address] [employer] Mechanic Helper: Mayur Barahona MD Laboratory - Chemistry and C hemistry - challengeon 08-30-2024 Free T3 [Mass/Vol] 3.4 pg/mL Normal 2.3 - 4.2 pg/mL [facility]. Free T4 [Mass/Vol] 1.2 ng/dL Normal 0.8 - 1.8 ng/dL [facility].; [facility] TSH Qn 2.25 m[IU]/L Normal [facility].; [facility], [facility] Laboratory - Hematology and Cell countson 08-30-2024 Basophils (Bld) [#/Vol] 0.057 10*3/uL Normal 0 - 200 {cells/uL} [facility].; [facility] Basophils/100 WBC (Bld) 0.7 % Normal [facility]; [facility], [facility] Eosinophils (Bld) [#/Vol] 0.356 10*3/uL Normal 15 - 500 {cells/uL} [facility].; [facility], [facility] Eosinophils/100 WBC (Bld) 4.4 % Normal [facility].; [facility] Erythrocyte distribution width (RBC) [Ratio] 11.5 % Normal 11.0 - 15.0 % [facility].; [facility], [facility] Hematocrit (Bld) [Volume fraction] 43.1 % Normal 35.0 - 45.0 % [facility].; [facility], [facility] Hemoglobin (Bld) [Mass/Vol] 14.5 g/dL Normal 11.7 - 15.5 g/dL [facility].; [facility], [facility] Lymphocytes (Bld) [#/Vol] 2.649 10*3/uL Normal 850 - 3900 {cells/uL} [facility].; [facility] Lymphocytes/100 WBC (Bld) 32.7 % Normal [facility].; [facility], [facility] MCH (RBC) [Entitic mass] 29.7 pg Normal 27.0 - 33.0 pg [facility].; [facility], [facility]. MCHC (RBC) [Mass/Vol] 33.6 g/dL Normal 32.0 - 36.0 g/dL [facility].; [facility] MCV (RBC) [Entitic vol] 88.3 fL Normal 80.0 - 100.0 fL [place] [employer]. Monocytes (Bld) [#/Vol] 0.535 10*3/uL Normal 200 - 950 {cells/uL} [employer]. Monocytes/100 WBC (Bld) 6.6 % Normal [employer]. Neutrophils (Bld) [#/Vol] 4.504 10*3/uL Normal 1500 - 7800 {cells/uL} [employer]. Neutrophils/100 WBC (Bld) 55.6 % Normal [employer].; [employer]. Platelet mean volume (Bld) [Entitic vol] 10.1 fL Normal 7.5 - 12.5 fL [employer].; [employer]. Platelets (Bld) [#/Vol] 299 10*3/uL Normal 140 - 400 [employer].; [place]. RBC (Bld) [#/Vol] 4.88 10*6/uL Normal 3.80 - 5.10 {Million/u L} [employer].; [employer]. WBC (Bld) [#/Vol] 8.1 10*3/uL Normal 3.8 - 10.8 [employer] [place]. Laboratory - Chemistry and C hemistry - challengeOrdered By: Elliott Reynaga on 05-13-2023 HCG ( test) Ql (U) Negative [facility] Comment on above: Very dilute urine sp ecimens, as indicated by a low specificgravity, may not contain business process representative levels of hCG. If is still suspected, a first morning urinespecimen should be collected 48 hours later and tested. Laboratory - Chemistry and C hemistry - challengeOrdered By: David Cano on 04-21-2023 T4 [Mass/Vol] 7.8 ug/dL 4.8-13.9 [facility] No Panel InformationOrdered By: David Cano on 04-21-2023 Free Triiodothyronine (T3) pg/dL 2.7 pg/mL 2.18-3.98 [facility] Thyroid Stimulating Hormone (TSH) 2.33 uIU/mL 0.358-3.74 [facility] Laboratory - Chemistry and C hemistry - challengeon 04-28-2022 Bilirubin Ql (U) Negative Normal [place] [place]. Ketones Ql (U) Negative Normal [place] [place]. pH (U) 6.5 [pH] Normal [place].; [employer], [employer]. Specific gravity (U) [Rel density] 1.005 Abnormal [place] [place]. Urobilinogen Qn (U) 0.2 mg/dL Normal [employer] [place]. Laboratory - Hematology and Cell countson 04-28-2022 Hemoglobin Ql (U) large Abnormal [place] [place]. Laboratory - Specimen inform ationon 04-28-2022 Appearance (U) Cloudy Abnormal [place] [place]. Color (U) Dark Yellow Normal [place] [place]. Laboratory - Urinalysison Glucose Test strip (U) [Mass/Vol] Negative Normal [place].; [place]. Leukocyte esterase Test strip Ql (U) small Abnormal [place] [place]. Nitrite Ql (U) Positive Abnormal [place].; [employer], [employer]. Protein Ql (U) trace Normal [place] [place]. No Panel Informationon 04-28 CULTURE, URINE, ROUTINE SEE NOTE Normal [place] [place]. US SOFT TISSUE NECK/HEADon 1 07-21-2020 SOFT TISSUE NECK/HEAD [address] [address] Patient: SIMA KEEN Phone#: : 1985 Age: 36 Gender: F Pt. Type: Account: [id number] Location: 052 Ordering: ALANIS BATISTA Exam Date: 05/20/2021/8:18 Family Phys: Charge Code: [id number] Physician: [place] Order #: [id number] DLP Dose#: PROCEDURE: SOFT TISSUE NECK/HEAD COMPARISON: [...] Knight MD on 05/20/2021 at 11:08 Normal [facility] THYROIDon 05-20-2021 [place] [address] Patient: SIMA KEEN Phone#: : 1985 Age: 36 Gender: F Pt. Type: Out Account: [id number] Location: 052 Ordering: [facility] Exam Date: 05/20/2021/8:06 Family Phys: Charge Code: [id number] Physician: [place] Order #: [id number] DLP Dose#: PROCEDURE: THYROID ULTRASOUND COMPARISON: None. [...] Knight MD on 05/20/2021 at 10:48 Normal [facility] Laboratory - Chemistry and C hemistry - challengeon 05-12-2021 Free T4 [Mass/Vol] 1.1 ng/dL Normal 0.8 - 1.8 ng/dL [employer] [employer] [facility].; [place]. TSH Qn 1.76 m[IU]/L Normal [employer] [place]. Laboratory - Hematology and Cell countson 05-12-2021 Basophils (Bld) [#/Vol] 0.031 10*3/uL Normal 0 - 200 {cells/uL} [employer], [employer].; [place]. Basophils/100 WBC (Bld) 0.5 % Normal [employer] [place]. Eosinophils (Bld) [#/Vol] 0.05 10*3/uL Normal 15 - 500 {cells/uL} [employer].; [place]. Eosinophils/100 WBC (Bld) 0.8 % Normal [employer].; [employer], [employer]. Erythrocyte distribution width (RBC) [Ratio] 11.6 % Normal 11.0 - 15.0 % [employer].; [place]. Hematocrit (Bld) [Volume fraction] 37.6 % Normal 35.0 - 45.0 % [employer].; [employer], [employer]. Hemoglobin (Bld) [Mass/Vol] 12.7 g/dL Normal 11.7 - 15.5 g/dL [employer].; [employer], [employer]. Lymphocytes (Bld) [#/Vol] 2.833 10*3/uL Normal 850 - 3900 {cells/uL} [employer], [employer].; [place]. Lymphocytes/100 WBC (Bld) 45.7 % Normal [employer].; [place] [employer]. MCH (RBC) [Entitic mass] 29.3 pg Normal 27.0 - 33.0 pg [facility].; [employer] MCHC (RBC) [Mass/Vol] 33.8 g/dL Normal 32.0 - 36.0 g/dL [facility], [facility].; [employer] MCV (RBC) [Entitic vol] 86.8 fL Normal 80.0 - 100.0 fL [facility] [employer] [facility].; [place] [employer], [facility]. Monocytes (Bld) [#/Vol] 0.422 10*3/uL Normal 200 - 950 {cells/uL} [place] [employer] [facility].; [employer], [employer]. Monocytes/100 WBC (Bld) 6.8 % Normal [place] [facility] [facility].; [employer], [employer]. Neutrophils (Bld) [#/Vol] 2.864 10*3/uL Normal 1500 - 7800 {cells/uL} [place] [employer] [facility].; [employer], [employer]. Neutrophils/100 WBC (Bld) 46.2 % Normal [place] [employer] [facility].; [employer], [employer]. Platelet mean volume (Bld) [Entitic vol] 10.2 fL Normal 7.5 - 12.5 fL [place] [employer] [facility].; [employer] Platelets (Bld) [#/Vol] 302 10*3/uL Normal 140 - 400 [place] [employer].; [employer], [employer]. RBC (Bld) [#/Vol] 4.33 10*6/uL Normal 3.80 - 5.10 {Million/u L} [place] [employer] [facility].; [employer], [facility]. WBC (Bld) [#/Vol] 6.2 10*3/uL Normal 3.8 - 10.8 [place] [employer].; [employer], [employer]. No Panel Informationon 05-12 [id number] SEE NOTE Normal [place] [employer].; [employer] CLINICAL INFORMATION: SEE NOTE Normal [facility] [employer] [facility].; [employer] SUPERVISOR ASSEMBLY DEPARTMENT: SEE NOTE Normal [place] [employer] HPV mRNA E6/E7 Not detected Normal [place] [place] INTERPRETATION/RESULT : SEE NOTE Normal [place] [place] LMP: SEE NOTE Normal [place] [employer] PREV. BX: SEE NOTE Normal [place].; [employer] PREV. PAP: SEE NOTE Normal [place].; [employer], [employer]. REVIEW SUPERVISOR ASSEMBLY DEPARTMENT: SEE NOTE Normal [place].; [employer] SOURCE: SEE NOTE Normal [place] [place]. STATEMENT OF ADEQUACY: SEE NOTE Normal [place] [place] CORONAVIRUS PCR - [facility] 12-06-2020 SARS-CoV-2 (COVID-19) RNA COLETTE+probe Ql (Unsp spec) Negative Normal NORMAL: NEGATIVE [facility] Comment on above: Performed By: #### 2 66255 #### [facility],[address] [place] [address] SEND TO IC? YES Normal [facility] Comment on above: Result Comment: RESU LTS FAXED TO INFECTION CONTROL. SARS-CoV-2 THIS TEST IS BEING USED UNDER THE FDA EUA PROCEDURE. THIS ASSAY HAS BEEN VALIDATED IN THE [facility] FOR USE WITH NASOPHARYNGEAL SPECIMENS IN [facility]. INTERPRETIVE DATA LABORATORY TEST RESULTS SHOULD ALWAYS [...] PUBLIC HEALTH AUTHORITIES. Performed By: #### 2 09515 #### [facility],[address] [place] [address] EMERGENCY REPORTon 1 EMERGENCY REPORT [facility] EMERGENCY ROOM REPORT NAME ACCOUNT SEX AGE ADMIT DISCHARGE PT MED. RECORD# NUMBER DATE DATE TYPE LEONILA [id number] F 35 11/01/20 11/01/20 3 SIMA [id number] ROOM: ER DATE OF : 1985 DICTATING [...] stronger walking. She Page 1 of 2 DWIGHT SIMA Emergency Room Report SIMA KEEN : 1985 [...] Minh Chester DO 11/01/20 19:08 JOB #: [id number] Transcribed By: marques 11/02/20 10:35 Electronically signed by: IMAN Chester D.O. 11/04/20 21:14 Page 2 of 2 KEEN, SIMA Emergency Room Report Normal [facility] CBC + DIFFon 11-01-2020 Baso # 0.00 x10EE3/UL Normal 0.00 - 0.10 [facility] Comment on above: Performed By: #### 2 14984 #### [facility],[address] [place], [place] [address] Basophils/100 WBC (Bld) 0.6 % Normal 0.0 - 2.0 [facility] Comment on above: Performed By: #### 2 54245 #### [facility],[address] [place] [address] CBC + DIFF Normal [facility] Comment on above: Result Comment: CBC- COMPLETE BLOOD COUNT Performed By: #### 2 22691 #### [facility],[address] [place] [address] EO # 0.00 x10EE3/UL Normal 0.00 - 0.50 [facility] Comment on above: Performed By: #### 2 80022 #### [facility],[address] [place] [address] Eosinophils/100 WBC (Bld) 0.5 % Normal 0.0 - 7.0 [facility] Comment on above: Performed By: #### 2 64798 #### [facility],[address] [place] [address] Erythrocyte distribution width (RBC) [Ratio] 12.2 % Normal 12.0 - 15.6 [facility] Comment on above: Performed By: #### 2 38961 #### [facility],[address] [place] [address] Hematocrit (Bld) [Volume fraction] 39.6 % Normal 34.0 - 46.0 [facility] Comment on above: Performed By: #### 2 55810 #### [facility],[address] [place] [address] Hemoglobin (Bld) [Mass/Vol] 13.7 g/dL Normal 12.0 - 16.0 [facility] Comment on above: Performed By: #### 2 69722 #### [facility],[address] [place] [address] Lymph # 2.40 x10EE3/UL Normal 0.80 - 2.80 [facility] Comment on above: Performed By: #### 2 01312 #### [facility],[address] [place] [address] Lymphocytes/100 WBC (Bld) 29.4 % Normal 20.0 - 45.0 [facility] Comment on above: Performed By: #### 2 91369 #### [facility],[address] [place] [address] MANUAL DIFF N/A Normal [facility] Comment on above: Performed By: #### 2 97136 #### [facility],[address] [place] [address] MCH (RBC) [Entitic mass] 30 pg Normal 27 - 33 [facility] Comment on above: Performed By: #### 2 27458 #### [facility],[address] [place] [address] MCHC 35 X10 3 Normal 32 - 36 [facility] Comment on above: Performed By: #### 2 70547 #### [facility],[address] [place] [address] MCV (RBC) [Entitic vol] 86 fL Normal 80 - 99 [facility] Comment on above: Performed By: #### 2 83293 #### [facility],[address] [place] [address] Moody # 0.60 x10EE3/UL Normal 0.20 - 1.00 [facility] Comment on above: Performed By: #### 2 74092 #### [facility],[address] [place] [address] MONOS % 6.7 % Normal 0.0 - 10.0 [facility] Comment on above: Performed By: #### 2 43322 #### [facility],[address] [place] [address] Morphology Torito (Bld) [Interp] N/A Normal [facility] Comment on above: Result Comment: {CD] Performed By: #### 2 61832 #### [facility],[address] [place] [address] Neut # 5.20 x10EE3/UL Normal 1.50 - 7.10 [facility] Comment on above: Performed By: #### 2 06710 #### [facility],[address] [place] [address] 117[address] Neutrophils/100 WBC (Bld) 62.8 % Normal 46.0 - 76.0 [facility] Comment on above: Performed By: #### 2 75846 #### [facility],[address] [place] [address]54[address] PLATELET 300 x10EE3/UL Normal 150 - 450 [facility] Comment on above: Performed By: #### 2 06433 #### [facility],[address] [place] [address] Platelet mean volume (Bld) [Entitic vol] 7.8 fL Normal 6.6 - 10.5 [facility] Comment on above: Result Comment: AUTO MATED DIFFERENTIAL Performed By: #### 2 43364 #### [facility],[address] [place] [address] 91447 RBC 4.61 x 10EE6/UL Normal 4.10 - 5.30 [facility] Comment on above: Performed By: #### 2 66334 #### [facility],[address] [place] [address] WBC 8.3 x 10EE3/UL Normal 4.5 - 10.8 [facility] Comment on above: Performed By: #### 2 96577 #### [facility],[address] [place] [address] 61989 CMP with eGFRon 11-01-2020 AGE 35 years Normal [facility] Comment on above: Performed By: #### 2 19275 #### [facility],[address] [place] [address] Albumin [Mass/Vol] 3.7 g/dL Normal 3.4 - 5.0 [facility] Comment on above: Performed By: #### 2 65618 #### [facility],[address] [place] [address]40 Albumin/Globulin [Mass ratio] 0.9 {ratio} Normal 0.9 - 1.6 [facility] Comment on above: Performed By: #### 2 95246 #### [facility],[address] [place] [address] [id number] ALK PHOS 69 U/L Normal 46 - 116 [facility] Comment on above: Performed By: #### 2 [id number] #### [facility],[address] [place] [address] 75926 ALT/SGPT <6 Low 14 - 59 [facility] Comment on above: Performed By: #### 2 [id number] #### [facility],[address] [place] [address] 91738 Anion gap [Moles/Vol] 15 mmol/L Normal 10 - 20 [facility] Comment on above: Performed By: #### 2 [id number] #### [facility],[address] [place] [address] 33720 AST [Catalytic activity/Vol] 10 U/L Low 13 - 39 [facility] Comment on above: Performed By: #### 2 92352 #### [facility],[address] [place] [address] 43685 B/C RATIO 12 ratio Normal 0 - 30 [facility] Comment on above: Performed By: #### 2 [id number] #### [facility],[address] [place] [address] 98037 Bilirubin [Mass/Vol] 0.6 mg/dL Normal 0.2 - 1.0 [facility] Comment on above: Performed By: #### 2 [id number] #### [facility],[address] [place] [address] 78905 Calcium [Mass/Vol] 8.8 mg/dL Normal 8.5 - 10.1 [facility] Comment on above: Performed By: #### 2 31290 #### [facility],[address] [place] [address] 86610 Chloride [Moles/Vol] 106 mmol/L Normal 98 - 107 [facility] Comment on above: Performed By: #### 2 [id number] #### [facility],[address] [place] [address] 52908 CMP with eGFR Normal [facility] Comment on above: Result Comment: COMP REHENSIVE METABOLIC PANEL Performed By: #### 2 09766 #### [facility],[address] [place] [address] 12784 CO2 [Moles/Vol] 23.0 mmol/L Normal 21.0 - 32.0 [facility] Comment on above: Performed By: #### 2 38267 #### [facility],[address] [place] [address] 48939 Creatinine [Mass/Vol] 0.6 mg/dL Normal 0.5 - 1.0 [facility] Comment on above: Performed By: #### 2 67604 #### [facility],[address] [place] [address] 91697 GFR/1.73 sq M.predicted among non-blacks MDRD (S/P/Bld) [Vol rate/Area] mL/min/{1.73_m2} Normal 60 - 999 [facility] Comment on above: Performed By: #### 2 07487 #### [facility],[address] [place] [address] 40780 Result Comment: ACCO RDING TO THE NATIONAL KIDNEY DISEASE EDUCATION PROGRAM(NKDE), A NORMAL eGFR IS A VALUE GREATER THAN OR EQUAL TO 60 ML/MIN/1.73 SQ METERS. CHRONIC KIDNEY DISEASE: <60mL/MIN/1.73 SQ METERS KIDNEY FAILURE: <15mL/MIN/1.73 SQ METERS THIS TEST SHOULD ONLY BE USED FOR PATIENTS 18 YEARS OF AGE AND OLDER. Globulin (S) [Mass/Vol] 4.0 g/dL High 1.5 - 3.8 [facility] Comment on above: Performed By: #### 2 [id number] #### [facility],[address] [place] [address] 60964 Glucose [Mass/Vol] 80 mg/dL Normal 74 - 106 [facility] Comment on above: Performed By: #### 2 80059 #### [facility],[address] [place] [address] 25226 Potassium [Moles/Vol] 3.5 mmol/L Normal 3.5 - 5.1 [facility] Comment on above: Performed By: #### 2 64981 #### [facility],[address] [place] [address] 85304 Protein [Mass/Vol] 7.7 g/dL Normal 6.4 - 8.2 [facility] Comment on above: Performed By: #### 2 02272 #### [facility],[address] [place] [address] 45907 Sodium [Moles/Vol] 140 mmol/L Normal 136 - 145 [facility] Comment on above: Performed By: #### 2 27547 #### [facility],[address] [place] [address] 19021 Urea nitrogen [Mass/Vol] 7 mg/dL Normal 7 - 18 [facility] Comment on above: Performed By: #### 2 92905 #### [facility],[address] [place] [address] 69605 CPKon 11-01-2020 CPK 53 U/L Normal 26 - 192 [facility] Comment on above: Performed By: #### 2 63457 #### [facility],[address] [place] [address] 72862 MR LUMBAR SP W/WO CONTRASTon 11-01-2020 MR LUMBAR SP W/WO CONTRAST [address] [address] Patient: SIMA KEEN Phone#: : 1985 Age: 35 Gender: F Pt. Type: ER Account: [id number] Location: 052 Ordering: MINH GARCIAER Exam Date: 11/01/2020/16:17 Family Phys: ALTA ZAPATA Charge Code: [id number] Physician: [place] Order #: [id number] DLP Dose#: PROCEDURE: MRI LUMBAR SPINE WITH [...] 35 Gender: F Pt. Type: ER Account: [id number] Location: 052 Ordering: MINH GARCIAER Exam Date: 11/01/2020/16:17 Family Phys: ALTA ZAPATA Charge Code: [id number] Physician: [place] Order #: [id number] DLP Dose#: Approved by: Yuki Knight MD on 11/01/2020 at 17:43 Normal [facility] SEDRATEon 11-01-2020 SEDRATE 6 mm/hr Normal 0 - 30 [facility] Comment on above: Performed By: #### 2 [id number] #### [facility],[address] [place], [place] [id number] CORONAVIRUS PCR [CCL]on REF LAB REPORT Negative Normal [facility] Comment on above: Performed By: #### 2 75292 #### [facility],[address] [place], [place] [id number] SEND TO ? NO Normal [facility] Comment on above: Performed By: #### 2 86112 #### [facility],[address] [place], [place] [id number] SARS-CoV-2 (COVID-19) RNA COLETTE+probe Ql (Unsp spec) Nasopharyngeal Swab Normal [facility] Comment on above: Performed By: #### 2 36504 #### [facility],[address] [place], [place] [id number] SARS-CoV-2 (COVID-19) RNA COLETTE+probe Ql (Unsp spec) Negative Normal [facility] Comment on above: Result Comment: Nega tive for COVID19 (SARS CoV2) by PCR. This test was developed and its performance characteristics determined by [facility]'s [facility] [place]. This test has been authorized by FDA under an Emergency Use Authorization (EUA). This test has been validated in accordance with the FDA's Guidance Document Policy for Diagnostics Testing in Laboratories Certified to Perform High Complexity Testing under CLIA prior to Emergency use Authorization for Coronavirus Disease 2019 during the Public Health Emergency issued on September 16, 2019. [facility] [address] [id number] Nilton Le III, M.D. [id number] Performed By: #### 2 96299 #### [facility],[address] [place] [address]62 Coronavirus 1 COVID 19 Result TRANSFERRER Normal Negative for COVID19 (SARS CoV2) by PCR. [facility] Comment on above: Result Comment: Nega tive for This test was developed and its performance characteristics determined by [facility]'s [facility] [place]. This test has been authorized by FDA [...] developed and its performance characteristics determined by [facility]'s [facility] [place]. This test has been authorized by FDA [...] developed and its performance characteristics determined by [facility]'s [facility] [place]. This test has been authorized by FDA under an Emergency Use Authorization (EUA). This test has been validated in accordance with the FDA's Guidance Document Policy for Diagnostics Testing in Laboratories Certified to Perform High Complexity Testing under CLIA prior to Emergency use Authorization for Coronavirus Disease 2019 during the Public Health Emergency issued on September 16, 2019. Coronavirus 1 COVID 19 Source TRANSFERRER TRANSFERRER Normal [facility] Laboratory - Chemistry and C hemistry - challengeon 08-19-2020 Bilirubin Ql (U) Negative Normal [employer] Ketones Ql (U) Negative Normal [employer] pH (U) 6.0 [pH] Normal [employer] Specific gravity (U) [Rel density] 1.015 Normal [employer] Urobilinogen Qn (U) 0.2 mg/dL Normal [facility].; [employer] Laboratory - Hematology and Cell countson 08-19-2020 Hemoglobin Ql (U) moderate Abnormal [facility] [place]. Laboratory - Specimen inform ationon 08-19-2020 Appearance (U) clear Normal [facility] [place] Color (U) yellow Normal [place] [employer] [place]. Laboratory - Urinalysison Glucose Test strip (U) [Mass/Vol] Negative Normal [place] [employer].; [place]. Leukocyte esterase Test strip Ql (U) small Abnormal [facility].; [place]. Nitrite Ql (U) Negative Normal [place] [employer].; [place] Protein Ql (U) Negative Normal [employer]; [place]. No Panel Informationon 08-19 CULTURE, URINE, ROUTINE SEE NOTE Abnormal [place] [employer].; [place]. Laboratory - Chemistry and C hemistry - challengeon 04-25-2019 Albumin [Mass/Vol] 4.3 g/dL Normal 3.6 - 5.1 g/dL [facility].; [employer], [employer]. Albumin/Globulin [Mass ratio] 1.8 {ratio} Normal 1.0 - 2.5 [place] [employer].; [employer]. ALP [Catalytic activity/Vol] 71 U/L Normal 33 - 115 U/L [place] [employer] [facility].; [employer]. ALT [Catalytic activity/Vol] 13 U/L Normal 6 - 29 U/L [employer].; [place]. AST [Catalytic activity/Vol] 11 U/L Normal 10 - 30 U/L [place] [employer].; [place]. Bilirubin [Mass/Vol] 1.0 mg/dL Normal 0.2 - 1 .2 mg/dL [employer].; [place]. Calcium [Mass/Vol] 9.3 mg/dL Normal 8.6 - 10. 2 mg/dL [facility], [facility].; [facility], [facility]. Chloride [Moles/Vol] 108 mmol/L Normal 98 - 11 0 mmol/L [facility], [facility].; [facility], [facility]. Cholesterol [Mass/Vol] 200 mg/dL Abnormal [facility], [facility].; [facility], [facility]. Cholesterol in HDL [Mass/Vol] 76 mg/dL Normal [facility], [facility].; [facility], [facility]. Cholesterol in LDL [Mass/Vol] 110 mg/dL Abnormal 0 - 100 mg/dL [facility], [facility].; [facility], [facility]. Cholesterol non HDL [Mass/Vol] 124 mg/dL Normal [facility], [facility].; [facility], [facility]. Cholesterol.total/Cho lesterol in HDL [Mass ratio] 2.6 {ratio} Normal [facility], [facility].; [place] [employer] [facility], [employer]. CO2 [Moles/Vol] 26 mmol/L Normal 20 - 32 mmol/L [facility], [facility].; [place] [employer], [employer]. Creatinine [Mass/Vol] 0.60 mg/dL Normal 0.50 - 1.10 mg/dL [facility], [facility].; [facility], [facility]. GFR/1.73 sq M.predicted among blacks MDRD (S/P/Bld) [Vol rate/Area] 138 {ML/MIN/1.73M2} Normal [facility], [facility].; [facility], [facility]. GFR/1.73 sq M.predicted MDRD (S/P/Bld) [Vol rate/Area] 119 {ML/MIN/1.73M2} Normal [facility], [facility].; [place] [employer], [facility]. Globulin (S) [Mass/Vol] 2.4 g/dL Normal 1.9 - 3.7 g/dL [facility], [facility].; [place] [employer] [facility] Glucose [Mass/Vol] 89 mg/dL Normal 65 - 99 mg/dL [facility], [facility].; [place] [employer], [facility]. Potassium [Moles/Vol] 4.1 mmol/L Normal 3.5 - 5.3 mmol/L [facility].; [facility] [employer] Protein [Mass/Vol] 6.7 g/dL Normal 6.1 - 8.1 g/dL [facility].; [place] [employer]. Sodium [Moles/Vol] 140 mmol/L Normal 135 - 146 mmol/L [facility].; [place] [employer]. Triglyceride [Mass/Vol] 48 mg/dL Normal [facility].; [place] [facility]. Urea nitrogen [Mass/Vol] 8 mg/dL Normal 7 - 25 mg/dL [facility].; [place] [employer], [employer]. Urea nitrogen/Creatinine [Mass ratio] 13.3 mg/mg Normal 6 - 22 [facility].; [place] [employer]. Laboratory - Cytologyon 05-20 Microscopic observation Cyto stain Nom (Cvx) Abnormal [facility].; [place] [employer] Laboratory - Cytologyon Microscopic observation Cyto stain Nom (Cvx) Abnormal [place] [facility].; [place] [employer]. Laboratory - Hematology and Cell countson 12-11-2016 Basophils (Bld) [#/Vol] 0.10 {3/UL} Normal 0.00 - 0.10 {3/UL} [place] [employer].; [employer] Work Phone: Basophils/100 WBC (Bld) 0.4 % Normal 0.0 - 2.0 % [facility].; [place] [employer]. Work Phone: CBC W Auto Differential panel (Bld) CBC Normal [place] [facility].; [employer]. Work Phone: Eosinophils (Bld) [#/Vol] 0.00 {3/UL} Normal 0.00 - 0.50 {3/UL} [place] [employer].; [employer], [employer]. Work Phone: Eosinophils/100 WBC (Bld) 0.1 % Normal 0.0 - 7.0 % [place] [employer].; [employer]. Work Phone: Erythrocyte distribution width (RBC) [Ratio] 13.1 % Normal 12.0 - 15.6 % [facility]; [facility] Work Phone: Hematocrit (Bld) [Volume fraction] 25.5 % Abnormal 34.0 - 46.0 % [facility]; [facility] Work Phone: Hemoglobin (Bld) [Mass/Vol] 8.7 g/dL Abnormal 12.0 - 16.0 g/dL [facility]; [facility] Work Phone: Lymphocytes (Bld) [#/Vol] 2.10 {3/UL} Normal 0.80 - 2.80 {3/UL} [facility]; [facility] Work Phone: Lymphocytes/100 WBC (Bld) 9.1 % Abnormal 20.0 - 45.0 % [facility]; [place] [employer] Work Phone: MCH (RBC) [Entitic mass] 29 pg Normal 27 - 33 pg [facility]; [place] [employer] Work Phone: MCHC (RBC) [Mass/Vol] 34 {X10_3} Normal 32 - 3 6 {X10_3} [facility]; [place] [employer] [facility] Work Phone: MCV (RBC) [Entitic vol] 85 fL Normal 80 - 99 fL [facility]; [place] [employer] [facility] Work Phone: Monocytes (Bld) [#/Vol] 1.20 {3/UL} Abnormal 0.20 - 1.00 {3/UL} [facility]; [place] [employer]. Work Phone: Monocytes/100 WBC (Bld) 5.0 % Normal 0.0 - 10.0 % [facility]; [place] [employer] Work Phone: Neutrophils (Bld) [#/Vol] 19.50 {3/UL} Abnormal 1.50 - 7.10 {3/UL} [facility].; [facility]. Work Phone: Neutrophils/100 WBC (Bld) 85.4 % Abnormal 46.0 - 76.0 % [facility].; [facility]. Work Phone: Platelet mean volume (Bld) [Entitic vol] 8.0 fL Normal 6.6 - 10.5 fL [facility].; [facility]. Work Phone: Platelets (Bld) [#/Vol] 186 {3/UL} Normal 150 - 450 {3/UL} [facility].; [facility]. Work Phone: RBC (Bld) [#/Vol] 3.00 {6/UL} Abnormal 4.10 - 5.30 {6/UL} [facility].; [place] [employer] [facility]. Work Phone: WBC (Bld) [#/Vol] 22.8 {3/UL} Abnormal 4.5 - 10.8 {3/UL} [facility].; [place] [employer] [facility]. Work Phone: Laboratory - Blood bankon ABO group Nom (Bld) O Normal [facility]; [facility] Work Phone: Blood group antibody screen Ql Negative Normal [facility]; [place] [employer]. Work Phone: Blood type and Indirect antibody screen panel (Bld) Normal [facility]; [facility]. Work Phone: Rh Nom (Bld) Positive Normal [facility]; [place] [employer] Work Phone: Laboratory - Hematology and Cell countson 12-09-2016 Basophils (Bld) [#/Vol] 0.10 {3/UL} Normal 0.00 - 0.10 {3/UL} [facility].; [employer]. Work Phone: Basophils/100 WBC (Bld) 0.7 % Normal 0.0 - 2.0 % [facility].; [employer]. Work Phone: CBC W Auto Differential panel (Bld) CBC Normal [facility].; [employer]. Work Phone: Eosinophils (Bld) [#/Vol] 0.10 {3/UL} Normal 0.00 - 0.50 {3/UL} [place] [employer] [facility].; [employer]. Work Phone: Eosinophils/100 WBC (Bld) 0.4 % Normal 0.0 - 7.0 % [place] [employer] [facility].; [employer]. Work Phone: Erythrocyte distribution width (RBC) [Ratio] 12.7 % Normal 12.0 - 15.6 % [place] [employer] [facility].; [employer]. Work Phone: Hematocrit (Bld) [Volume fraction] 33.7 % Abnormal 34.0 - 46.0 % [place] [employer] [facility].; [employer]. Work Phone: Hemoglobin (Bld) [Mass/Vol] 11.6 g/dL Abnormal 12.0 - 16.0 g/dL [place] [employer] [facility].; [employer]. Work Phone: Lymphocytes (Bld) [#/Vol] 2.50 {3/UL} Normal 0.80 - 2.80 {3/UL} [place] [employer].; [employer]. Work Phone: Lymphocytes/100 WBC (Bld) 16.1 % Abnormal 20.0 - 45.0 % [place] [employer] [facility].; [employer]. Work Phone: MCH (RBC) [Entitic mass] 29 pg Normal 27 - 33 pg [facility].; [place] [employer]. Work Phone: MCHC (RBC) [Mass/Vol] 34 {X10_3} Normal 32 - 3 6 {X10_3} [facility].; [place] [employer]. Work Phone: MCV (RBC) [Entitic vol] 84 fL Normal 80 - 99 fL [facility].; [employer]. Work Phone: Monocytes (Bld) [#/Vol] 0.80 {3/UL} Normal 0.20 - 1.00 {3/UL} [facility].; [employer]. Work Phone: Monocytes/100 WBC (Bld) 5.4 % Normal 0.0 - 10.0 % [facility].; [employer]. Work Phone: Morphology Torito (Bld) [Interp] N/A Normal [place] [employer] [facility]; [employer]. Work Phone: Neutrophils (Bld) [#/Vol] 12.20 {3/UL} Abnormal 1.50 - 7.10 {3/UL} [place] [employer] [facility].; [employer]. Work Phone: Neutrophils/100 WBC (Bld) 77.4 % Abnormal 46.0 - 76.0 % [place] [employer] [facility].; [employer]. Work Phone: Platelet mean volume (Bld) [Entitic vol] 8.3 fL Normal 6.6 - 10.5 fL [place] [employer].; [employer]. Work Phone: Platelets (Bld) [#/Vol] 238 {3/UL} Normal 150 - 450 {3/UL} [place] [employer].; [employer]. Work Phone: RBC (Bld) [#/Vol] 4.01 {6/UL} Abnormal 4.10 - 5.30 {6/UL} [place] [place] Work Phone: WBC (Bld) [#/Vol] 15.8 {3/UL} Abnormal 4.5 - 10.8 {3/UL} [place].; [employer], [employer]. Work Phone: Laboratory - Urinalysison Glucose Test strip (U) [Mass/Vol] Negative Normal [employer] [place]. Protein Ql (U) Negative Normal [place].; [employer], [employer]. No Panel Informationon 12-09 MANUAL DIFF N/A Normal [employer] [place]. Work Phone: Laboratory - Urinalysison Glucose Test strip (U) [Mass/Vol] Negative Normal [employer] [place] Protein Ql (U) Negative Normal [place].; [employer], [employer]. Laboratory - Urinalysison Glucose Test strip (U) [Mass/Vol] Negative Normal [place].; [employer] Protein Ql (U) Negative Normal [place].; [employer], [employer]. Laboratory - Urinalysison Glucose Test strip (U) [Mass/Vol] Negative Normal [place] [place] Protein Ql (U) Negative Normal [place].; [employer], [employer]. Laboratory - Urinalysison Glucose Test strip (U) [Mass/Vol] Negative Normal [place].; [employer] Protein Ql (U) Negative Normal [place].; [employer] Laboratory - Microbiology an d Antimicrobial susceptibilityon 11-05-2016 S. agalactiae Org specific cx Ql (Vag fld) CULTURE VAGINAL GROUP B Normal [facility]; [facility] Laboratory - Urinalysison Glucose Test strip (U) [Mass/Vol] Negative Normal [facility]; [facility] Protein Ql (U) Negative Normal [facility].; [place] [employer] [facility]. Laboratory - Urinalysison Glucose Test strip (U) [Mass/Vol] Negative Normal [facility].; [place] [employer]. Protein Ql (U) Negative Normal [facility] [facility] [place] [facility]. Laboratory - Urinalysison Glucose Test strip (U) [Mass/Vol] Negative Normal [facility].; [place] [employer] [facility]. Protein Ql (U) Negative Normal [facility]; [place]. Laboratory - Chemistry and C hemistry - challengeon 08-20-2016 Glucose 1 Hr post 50 g glucose PO [Mass/Vol] 112 mg/dL Normal [facility]; [place] [facility]. Laboratory - Hematology and Cell countson 08-20-2016 Hemoglobin (Bld) [Mass/Vol] 11.6 g/dL Abnormal 11.7 - 15.5 g/dL [facility]; [place] [employer] [facility]. Laboratory - Urinalysison Glucose Test strip (U) [Mass/Vol] Negative Normal [facility].; [place] [employer]. Protein Ql (U) Negative Normal [facility]; [place] [employer] [facility]. Laboratory - Blood bankon ABO group Nom (Bld) O Normal [facility]; [place] [employer] [facility] Work Phone: Blood group antibody screen Ql Negative Normal [facility]; [place] [employer] [facility] Work Phone: Blood type and Indirect antibody screen panel (Bld) Normal [facility]; [place] [employer] Work Phone: Rh Nom (Bld) Positive Normal [facility]; [employer] Work Phone: Laboratory - Chemistry and C hemistry - challengeon 08-10-2016 Anion gap [Moles/Vol] 15 mmol/L Normal 10 - 2 0 mmol/L [facility]; [employer]. Work Phone: Basic metabolic 2000 panel BMP with eGFR Normal [facility]; [employer] Work Phone: Bilirubin Ql (U) Negative Normal [place] [employer]; [employer] Calcium [Mass/Vol] 9.2 mg/dL Normal 8.6 - 10. 2 mg/dL [place] [employer]; [employer] Work Phone: Chloride [Moles/Vol] 102 mmol/L Normal 98 - 10 7 mmol/L [place] [employer]; [employer] Work Phone: CO2 [Moles/Vol] 22.0 mmol/L Normal 21.0 - 31.0 mmol/L [place] [employer]; [employer] Work Phone: Creatinine [Mass/Vol] 0.5 mg/dL Abnormal 0.6 - 1.2 mg/dL [facility]; [employer] Work Phone: GFR/1.73 sq M.predicted among blacks MDRD (S/P/Bld) [Vol rate/Area] 174 {ML/MINUTE} Normal 60 - 999 {ML/MINUTE } [place] [employer].; [employer]. Work Phone: GFR/1.73 sq M.predicted MDRD (S/P/Bld) [Vol rate/Area] 144 {ML/MINUTE} Normal 60 - 999 {ML/MINUTE } [place] [employer].; [employer] Work Phone: Glucose [Mass/Vol] 87 mg/dL Normal 74 - 106 mg/dL [place] [employer]; [employer] Work Phone: Ketones Ql (U) Negative Normal [facility]; [place] [employer] [facility] pH (U) 7.0 [pH] Normal [facility]; [place] [employer] [facility] Potassium [Moles/Vol] 3.5 mmol/L Normal 3.5 - 5.1 mmol/L [facility]; [place] [employer] [facility] Work Phone: Sodium [Moles/Vol] 135 mmol/L Abnormal 136 - 145 mmol/L [facility].; [place] [employer] Work Phone: Specific gravity (U) [Rel density] 1.015 Normal [facility]; [place] [employer] Urea nitrogen [Mass/Vol] 4 mg/dL Abnormal 6 - 20 mg/dL [facility]; [place] [employer] [facility] Work Phone: Urobilinogen Qn (U) 0.2 mg/dL Normal [facility]; [place] [employer] [facility] Laboratory - Hematology and Cell countson 08-10-2016 Basophils (Bld) [#/Vol] 0.10 {3/UL} Normal 0.00 - 0.10 {3/UL} [facility]; [place] [facility] Work Phone: Basophils/100 WBC (Bld) 0.5 % Normal 0.0 - 2.0 % [facility]; [place] [employer] Work Phone: CBC W Auto Differential panel (Bld) CBC Normal [place] [employer] [facility]; [place] [employer] Work Phone: Eosinophils (Bld) [#/Vol] 0.10 {3/UL} Normal 0.00 - 0.50 {3/UL} [place] [employer] [facility].; [employer] Work Phone: Eosinophils/100 WBC (Bld) 0.6 % Normal 0.0 - 7.0 % [facility]; [facility] Work Phone: Erythrocyte distribution width (RBC) [Ratio] 12.6 % Normal 12.0 - 15.6 % [facility]; [facility] Work Phone: Hematocrit (Bld) [Volume fraction] 36.0 % Normal 34.0 - 46.0 % [facility]; [facility] Work Phone: Hemoglobin (Bld) [Mass/Vol] 12.6 g/dL Normal 12.0 - 16.0 g/dL [facility]; [facility] Work Phone: Hemoglobin Ql (U) large Abnormal [facility]; [place] [employer] [facility] Lymphocytes (Bld) [#/Vol] 1.70 {3/UL} Normal 0.80 - 2.80 {3/UL} [facility]; [place] [employer] Work Phone: Lymphocytes/100 WBC (Bld) 9.3 % Abnormal 20.0 - 45.0 % [facility]; [place] [employer] [facility] Work Phone: MCH (RBC) [Entitic mass] 30 pg Normal 27 - 33 pg [facility]; [place] [employer] Work Phone: MCHC (RBC) [Mass/Vol] 35 {X10_3} Normal 32 - 3 6 {X10_3} [facility]; [place] [employer] Work Phone: MCV (RBC) [Entitic vol] 86 fL Normal 80 - 99 fL [facility]; [place] [employer] [facility] Work Phone: Monocytes (Bld) [#/Vol] 0.40 {3/UL} Normal 0.20 - 1.00 {3/UL} [facility]; [place] [employer] Work Phone: Monocytes/100 WBC (Bld) 2.2 % Normal 0.0 - 10.0 % [facility].; [employer]. Work Phone: Morphology Torito (Bld) [Interp] N/A Normal [facility] [employer] [place]. Work Phone: Neutrophils (Bld) [#/Vol] 16.00 {3/UL} Abnormal 1.50 - 7.10 {3/UL} [place] [employer].; [employer]. Work Phone: Neutrophils/100 WBC (Bld) 87.4 % Abnormal 46.0 - 76.0 % [place] [employer].; [employer], [employer]. Work Phone: Platelet mean volume (Bld) [Entitic vol] 7.8 fL Normal 6.6 - 10.5 fL [place] [employer].; [place]. Work Phone: Platelets (Bld) [#/Vol] 224 {3/UL} Normal 150 - 450 {3/UL} [employer].; [place]. Work Phone: RBC (Bld) [#/Vol] 4.19 {6/UL} Normal 4.10 - 5.30 {6/UL} [employer].; [place]. Work Phone: WBC (Bld) [#/Vol] 18.4 {3/UL} Abnormal 4.5 - 10.8 {3/UL} [employer].; [employer] Work Phone: Laboratory - Specimen inform ationon 08-10-2016 Appearance (U) clear Normal [employer].; [place]. Color (U) yellow Normal [employer].; [employer]. Laboratory - Urinalysison Glucose Test strip (U) [Mass/Vol] Negative Normal [facility].; [employer]. Leukocyte esterase Test strip Ql (U) trace Normal [facility] [employer]. Nitrite Ql (U) Negative Normal [facility].; [employer]. Protein Ql (U) Negative Normal [facility].; [employer]. No Panel Informationon 08-10 AGE 31 {years} Normal [facility].; [employer]. Work Phone: MANUAL DIFF N/A Normal [facility].; [employer]. Work Phone: Laboratory - Chemistry and C hemistry - challengeon 08-09-2016 Bilirubin [Mass/Vol] Negative Normal [facility]; [employer]. Work Phone: Glucose [Mass/Vol] NORM Normal [facility]; [employer]. Work Phone: pH (Bld) 5 [pH] Normal [place] [employer]; [place]. Work Phone: Protein [Mass/Vol] 15 g/dL Abnormal [place] [employer] [place]. Work Phone: Laboratory - Hematology and Cell countson 08-09-2016 WBC (Bld) [#/Vol] 25 10*3/uL Abnormal [place] [employer] [facility].; [place]. Work Phone: Laboratory - Microbiology an d Antimicrobial susceptibilityon 08-09-2016 Bacteria identified Cx Nom (U) CULTURE URINE Normal [place] [employer]; [employer]. Work Phone: Bacteria identified Cx Nom (Unsp spec) 1+ Normal [place] [employer].; [employer]. Work Phone: Laboratory - Specimen inform ationon 08-09-2016 Clarity (U) clear Normal [facility] [employer]; [employer]. Work Phone: Color (U) p.yel Normal [facility]; [employer]. Work Phone: Specimen type Nom (Spec) Clean catch Normal [facility].; [employer]. Work Phone: Laboratory - Urinalysison Crystals LM Nom (Urine sed) NONE Normal [place] [employer].; [employer]. Work Phone: Nitrite Ql (U) Negative Normal [place] [facility]; [employer]. Work Phone: Urinalysis dipstick W Reflex Microscopic panel (U) URINALYSIS Normal [place] [employer].; [employer]. Work Phone: Yeast LM Ql (Urine sed) NONE Normal [place] [employer] [facility]; [place]. Work Phone: No Panel Informationon 08-09 Amorphous NONE Normal [place] [employer]; [place]. Work Phone: Blood 250 Abnormal [employer]; [employer]. Work Phone: Casts NONE Normal [place] [employer] [facility]; [place]. Work Phone: Epi Cells OCC Normal [place] [employer]; [place]. Work Phone: Ketone Negative Normal [employer]; [place]. Work Phone: Microscopic SEE BELOW Normal [place] [employer]; [place]. Work Phone: Mucous 1+ Normal [employer].; [place]. Work Phone: Rbc 20-25 Abnormal 0 - 3 [place] [employer].; [place]. Work Phone: Sp [place] 1.020 Normal [place].; [place]. Work Phone: Urobilinog NORM Normal [employer]; [place]. Work Phone: Wbc 6-10 Normal 0 - 5 [place].; [place]. Work Phone: Laboratory - Urinalysison Glucose Test strip (U) [Mass/Vol] Negative Normal [place].; [place]. Protein Ql (U) Negative Normal [employer].; [place]. Laboratory - Urinalysison Glucose Test strip (U) [Mass/Vol] Negative Normal [employer] [place]. Protein Ql (U) Negative Normal [employer] [place]. Laboratory - Blood bankon ABO group Nom (Bld) O Normal [employer] [place]. Blood group antibody screen Ql Negative Normal [employer]; [place]. Laboratory - Chemistry and C hemistry - challengeon 05-01-2016 Bilirubin Ql (U) Negative Normal [employer]; [place]. Ketones Ql (U) Negative Normal [place] [place]. pH (U) 5.0 [pH] Abnormal [employer]; [place]. Specific gravity (U) [Rel density] 1.005 Abnormal [place] [place]. TSH Qn 1.31 m[IU]/L Normal 0.40 - 4.50 {mIU/L} [place].; [place]. Urobilinogen Qn (U) 0.2 mg/dL Normal [employer] [place]. Laboratory - Hematology and Cell countson 05-01-2016 Basophils (Bld) [#/Vol] 40 {Cells}/uL Normal 0 - 200 {Cells}/uL [facility].; [facility] Basophils/100 WBC (Bld) 0 % Normal 0 - 1 % [facility].; [facility], [facility] Eosinophils (Bld) [#/Vol] 60 {Cells}/uL Normal 15 - 500 {Cells}/uL [facility].; [facility], [facility] Eosinophils/100 WBC (Bld) 1 % Normal 0 - 4 % [facility].; [facility] Erythrocyte distribution width (RBC) [Ratio] 12.4 % Normal 11.0 - 15.0 % [facility].; [facility], [facility] Hematocrit (Bld) [Volume fraction] 38.4 % Normal 35.0 - 45.0 % [facility]; [facility], [facility] Hemoglobin (Bld) [Mass/Vol] 12.8 g/dL Normal 11.7 - 15.5 g/dL [facility].; [facility], [facility] Hemoglobin Ql (U) trace, hemolyzed Abnormal [facility]; [facility] Lymphocytes (Bld) [#/Vol] 2300 {Cells}/uL Normal 850 - 3900 {Cells}/uL [facility].; [facility], [facility] Lymphocytes/100 WBC (Bld) 26 % Normal 12 - 47 % [facility]; [facility], [facility]. MCH (RBC) [Entitic mass] 29.3 pg Normal 27.0 - 33.0 PG [facility].; [facility], [facility]. MCHC (RBC) [Mass/Vol] 33.3 g/dL Normal 32.0 - 36.0 g/dL [facility].; [facility], [facility]. MCV (RBC) [Entitic vol] 88.0 fL Normal 80.0 - 100.0 fL [facility].; [place] [employer] [facility], [facility]. Monocytes (Bld) [#/Vol] 350 {Cells}/uL Normal 200 - 950 {Cells}/uL [facility].; [facility] [employer], [facility]. Monocytes/100 WBC (Bld) 4 % Normal 4 - 12 % [facility].; [place] [employer]. Neutrophils (Bld) [#/Vol] 6080 {Cells}/uL Normal 1500 - 7800 {Cells}/uL [facility].; [place] [employer]. Neutrophils/100 WBC (Bld) 69 % Normal 40 - 75 % [facility].; [employer]. Platelet mean volume (Bld) [Entitic vol] 9.3 fL Normal 7.5 - 11.5 fL [facility] [employer] [facility].; [place] [employer]. Platelets (Bld) [#/Vol] 263 10*3/uL Normal 140 - 400 10*3/uL [place] [employer].; [place] [employer]. RBC (Bld) [#/Vol] 4.36 10*6/uL Normal 3.80 - 5.10 10*6/uL [facility].; [place] [employer]. WBC (Bld) [#/Vol] 8.8 10*3/uL Normal 3.8 - 10.8 10*3/uL [place] [employer].; [employer]. Laboratory - Microbiology an d Antimicrobial susceptibilityon 05-01-2016 HBV surface Ag IA Ql Non-Reactive Normal [facility]; [employer] Reagin Ab RPR Ql (S) Non-Reactive Normal [facility]; [employer] Rubella virus IgG Qn (S) 2.75 [IU]/mL Normal [place] [facility].; [employer]. Laboratory - Specimen inform ationon 05-01-2016 Appearance (U) clear Normal [place] [facility].; [employer] Color (U) yellow Normal [place] [employer].; [employer]. Laboratory - Urinalysison Glucose Test strip (U) [Mass/Vol] Negative Normal [facility] [employer] [facility].; [employer]. Leukocyte esterase Test strip Ql (U) trace Normal [facility] [employer] [facility].; [employer] Nitrite Ql (U) Negative Normal [facility] [employer]. Protein Ql (U) Negative Normal [facility]; [place] [employer] No Panel Informationon 05-01 RH TYPE Positive Normal [facility]; [place] [employer] [facility] Laboratory - Chemistry and C hemistry - challengeon 02-08-2014 Albumin [Mass/Vol] 4.5 g/dL Normal 3.4 - 4.8 g/dL [facility]; [place] [employer] Albumin [Mass/Vol] 1.7 g/dL Abnormal 0.9 - 1.6 [facility].; [place] [employer]. ALP [Catalytic activity/Vol] 57 U/L Normal 38 - 126 U/L [facility].; [place] [employer] [facility]. ALT [Catalytic activity/Vol] 7 U/L Abnormal 8 - 35 U/L [facility].; [place] [employer]. ALT No additional P-5'-P [Catalytic activity/Vol] 7 U/L Abnormal 8 - 35 U/L [facility].; [employer]. AST [Catalytic activity/Vol] 11 U/L Abnormal 13 - 39 U/L [facility].; [place] [employer]. Bilirubin [Mass/Vol] 1.0 mg/dL Normal 0.0 - 1 .5 mg/dL [facility].; [place] [employer] [facility], [facility]. Calcium [Mass/Vol] 9.2 mg/dL Normal 8.6 - 10. 2 mg/dL [facility].; [place] [employer]. Chloride [Moles/Vol] 104 mmol/L Normal 98 - 10 7 mmol/L [facility].; [place] [employer]. Cholesterol [Mass/Vol] 204 mg/dL Abnormal 0 - 200 mg/dL [facility].; [place] [employer]. Cholesterol in HDL [Mass or moles/Vol] 81 mg/dL Abnormal 40 - 60 mg/dL [facility].; [place] [employer]. Cholesterol in LDL [Mass/Vol] 115 mg/dL Normal 0 - 129 mg/dL [facility].; [employer]. Cholesterol.total/Cho lesterol in HDL [Mass ratio] 2.5 {ratio} Normal 0.0 - 5.0 [facility]; [facility] CO2 [Moles/Vol] 25.0 mmol/L Normal 13.0 - 29.0 mmol/L [facility].; [facility], [facility] Comprehensive metabolic 2000 panel CMP with eGFR Normal [facility]; [facility] Creatinine [Mass/Vol] 0.7 mg/dL Normal 0.6 - 1.2 mg/dL [facility].; [facility], [facility]. GFR/1.73 sq M.predicted among blacks MDRD (S/P/Bld) [Vol rate/Area] mL/min/{1.73_m2} Normal 60 - 999 {ML/MINUTE } [facility].; [facility], [facility]. GFR/1.73 sq M.predicted MDRD (S/P/Bld) [Vol rate/Area] mL/min/{1.73_m2} Normal 60 - 999 {ML/MINUTE } [facility].; [facility], [facility]. Globulin (S) [Mass/Vol] 2.6 g/dL Normal 1.5 - 3.8 g/dL [facility].; [facility], [facility]. Glucose [Mass/Vol] 73 mg/dL Abnormal 74 - 106 mg/dL [facility].; [facility], [facility]. Lipid 1996 panel LIPID PROFILE Normal [facility]; [facility], [facility] Potassium [Moles/Vol] 4.0 mmol/L Normal 3.5 - 5.1 mmol/L [facility].; [facility], [facility] Protein [Mass/Vol] 7.1 g/dL Normal 6.4 - 8.3 g/dL [facility], [facility].; [facility], [facility]. Sodium [Moles/Vol] 135 mmol/L Abnormal 136 - 145 mmol/L [facility], [facility].; [facility], [facility]. Triglyceride [Mass/Vol] 41 mg/dL Normal 0 - 150 mg/dL [facility].; [facility] [employer] Urea nitrogen [Mass/Vol] 8 mg/dL Normal 6 - 20 mg/dL [facility].; [facility] Urea nitrogen/Creatinine [Mass ratio] 11 {ratio} Normal 0 - 30 {ratio} [facility].; [facility] Laboratory - Microbiology an d Antimicrobial susceptibilityon 02-08-2014 C. trachomatis DNA COLETTE+probe Ql (Unsp spec) Normal [facility]; [place] [employer] [facility]. No Panel Informationon 02-08 AGE 28 {years} Normal [facility]; [facility] Vital Signs Date Time Vital Sign Value Performing Clinician Facility 03-01-2025 08:45-0400 Body temperature 97.2 [degF] Alanis Batista PA Work Phone: [phone] [place] [address] 03-01-2025 08:45-0400 Diastolic blood pressure 66 mm[Hg] Alanis Batista PA Work Phone: [phone] [place] [address] 03-01-2025 08:45-0400 Heart rate 68 /min Alanis Batista PA Work Phone: 8(291)449-358497 [place] [address] 03-01-2025 08:45-0400 Respiratory rate 16 /min Alanis Batista PA Work Phone: 2(077)[phone] [address] 03-01-2025 08:45-0400 SaO2% (BldA) [Mass fraction] 99 % Alanis Batista PA Work Phone: [facility] 03-01-2025 08:45-0400 Systolic blood pressure 101 mm[Hg] Alanis Batista PA Work Phone: 8(620)[phone] [place] [address] 03-01-2025 07:01-0400 Body height 170.18 cm Alanis Batista PA Work Phone: 6(862)019-286897 [place] [address] 03-01-2025 07:01-0400 Body mass index (BMI) [Ratio] 24.5 kg/m2 Alanis Batista PA Work Phone: [facility] 03-01-2025 07:01-0400 Body weight 70.9 kg Alanis Batista PA Work Phone: [facility] 01-02-2025 10:10-0400 Body height 170.2 cm [facility] Comment on above: Per pt 01-02-2025 10:10-0400 Body mass index (BMI) [Ratio] 24.59 kg/m2 [facility] 01-02-2025 10:10-0400 Body weight 71.22 kg [facility] Comment on above: Per pt 10-26-2024 10:30-0400 Body temperature 97.9 [degF] Alanis Batista PA Work Phone: 9(645)[phone] [place] [address] 10-26-2024 10:30-0400 Diastolic blood pressure 54 mm[Hg] Alanis Batista PA Work Phone: 9(655)[phone] [place] [address] 10-26-2024 10:30-0400 Heart rate 79 /min Alanis Batista PA Work Phone: 1(530)[phone] [place] [address] 10-26-2024 10:30-0400 Respiratory rate 16 /min Alanis Batista PA Work Phone: 2(407)[phone] [place] [address] 10-26-2024 10:30-0400 SaO2% (BldA) [Mass fraction] 97 % Alanis Batista PA Work Phone: 8(861)[phone] [place] [address] 10-26-2024 10:30-0400 Systolic blood pressure 99 mm[Hg] Alanis Batista PA Work Phone: 4(043)[phone] [place] [address] 10-26-2024 08:53-0400 Body height 170.18 cm Alanis Batista PA Work Phone: 9(875)037-176597 [place] [address] 10-26-2024 08:53-0400 Body mass index (BMI) [Ratio] 24.8 kg/m2 Alanis Batista PA Work Phone: [facility] 10-26-2024 08:53-0400 Body weight 72.03 kg Alanis Batista PA Work Phone: 2(447)[phone] [place] [address] 10-04-2024 13:16-0400 Body height 170.18 cm Alanis Batista PA Work Phone: [facility] 10-04-2024 13:16-0400 Body mass index (BMI) [Ratio] 24.9 kg/m2 Alanis Batista PA Work Phone: [facility] 10-04-2024 13:16-0400 Body weight 72.12 kg Alanis Batista PA Work Phone: [facility] 10-04-2024 13:16-0400 Diastolic blood pressure 86 mm[Hg] Alanis Batista PA Work Phone: [facility] 10-04-2024 13:16-0400 Heart rate 90 /min Alanis Batista PA Work Phone: [facility] 10-04-2024 13:16-0400 Respiratory rate 17 /min Alanis Batista PA Work Phone: [facility] 10-04-2024 13:16-0400 SaO2% (BldA) [Mass fraction] 99 % Alanis Batista PA Work Phone: [facility] 10-04-2024 13:16-0400 Systolic blood pressure 126 mm[Hg] Alanis Batista PA Work Phone: [facility] 08-30-2024 13:17-0500 Body height 171.45 cm Juliet Patten LPN [facility] 08-30-2024 13:17-0500 Body mass index (BMI) [Ratio] 25.62 kg/m2 Juliet Patten LPN [facility] 08-30-2024 13:17-0500 Body surface area Derived from formula 1.88 m2 Juliet Patten LPN [facility] 08-30-2024 13:17-0500 Body weight 75.3 kg Juliet Patten LPN [facility] 08-30-2024 13:17-0500 Diastolic blood pressure 75 mm[Hg] Juliet Patten LPN [facility]. Comment on above: Patient Position: Sitting; Cuff Location : Right Arm; Cuff Size: Standard 08-30-2024 13:17-0500 Heart rate 71 /min Juliet Vacasally FARNSWORTH [facility], [facility].; [employer]. Comment on above: Pattern: Regular 08-30-2024 13:17-0500 Systolic blood pressure 110 mm[Hg] Juliet Alvaradoach POOLING OPERATOR [facility], [facility].; [employer]. Comment on above: Patient Position: Sitting; Cuff Location : Right Arm; Cuff Size: Standard 07-14-2023 14:42-0500 Body height 171.45 cm Juliet Vacalabach [facility], [facility].; [place] [employer] [facility]. 07-14-2023 14:42-0500 Body mass index (BMI) [Ratio] 24.38 kg/m2 Juliet Collier Earline [facility] [place] [employer] [facility], [facility]. 07-14-2023 14:42-0500 Body surface area Derived from formula 1.84 m2 Juliet Vacalabach POOLING OPERATOR [facility], [facility].; [employer], [facility]. 07-14-2023 14:42-0500 Body weight 71.67 kg Juliet Vacalabach POOLING OPERATOR [facility], [facility].; [employer], [facility]. 07-14-2023 14:42-0500 Diastolic blood pressure 77 mm[Hg] Juliet Collier Earline POOLING OPERATOR [facility].; [employer]. Comment on above: Patient Position: Sitting; Cuff Location : Left Arm; Cuff Size: Standard 07-14-2023 14:42-0500 Heart rate 88 /min Juliet Vacalabach POOLING OPERATOR [facility].; [employer]. Comment on above: Pattern: Regular 07-14-2023 14:42-0500 Systolic blood pressure 113 mm[Hg] Juliet Vacalabach POOLING OPERATOR [place] [employer] [facility]. Comment on above: Patient Position: Sitting; Cuff Location : Left Arm; Cuff Size: Standard 05-13-2023 11:30-0400 Diastolic blood pressure 85 mm[Hg] PA Alanis Batista PA Work Phone: [facility] 05-13-2023 11:30-0400 Heart rate 84 /min PA Alanis Batista PA Work Phone: [facility] 05-13-2023 11:30-0400 Respiratory rate 16 /min PA Alanis Batista PA Work Phone: [facility] 05-13-2023 11:30-0400 SaO2% (BldA) [Mass fraction] 100 % PA Alanis Batista PA Work Phone: 6(555)[phone] [place] [address] 05-13-2023 11:30-0400 Systolic blood pressure 114 mm[Hg] PA Alanis Batista PA Work Phone: 4(605)[phone] [place] [address] 05-13-2023 10:56-0400 Body temperature 97.3 [degF] PA Alanis Batista PA Work Phone: 5(434)[phone] [place] [address] 05-13-2023 09:50-0400 Body height 170.18 cm PA Alanis Batista PA Work Phone: 0(219)[phone] [place] [address] 05-13-2023 09:50-0400 Body mass index (BMI) [Ratio] 24.1 kg/m2 PA Alanis Batista PA Work Phone: [facility] 05-13-2023 09:50-0400 Body weight 70 kg PA Alanis Batista PA Work Phone: 6(901)[phone] [place] [address] 11-02-2022 08:06-0400 Body height 171.45 cm Juliet Patten LPN [facility], [facility].; [facility] 11-02-2022 08:06-0400 Body mass index (BMI) [Ratio] 23.76 kg/m2 Juliet Patten LPN [facility], [facility].; [facility]. 11-02-2022 08:06-0400 Body surface area Derived from formula 1.82 m2 Juliet Patten LPN [facility], [facility].; [facility]. 11-02-2022 08:06-0400 Body weight 69.85 kg Juliet Collier Earline F[employer]TH [facility], [facility].; [place] [employer] [facility], [facility]. 11-02-2022 08:06-0400 Diastolic blood pressure 81 mm[Hg] Juliet Collier Earline [facility].; [place] [employer] [facility], [facility]. Comment on above: Patient Position: Sitting; Cuff Location : Left Arm; Cuff Size: Standard 11-02-2022 08:06-0400 Heart rate 76 /min Juliet [facility]atten [facility], [facility].; [place] [employer] [facility], [facility]. Comment on above: Pattern: Regular 11-02-2022 08:06-0400 Systolic blood pressure 123 mm[Hg] Juliet Collier Earline [facility].; [place] [employer] [facility], [facility]. Comment on above: Patient Position: Sitting; Cuff Location : Left Arm; Cuff Size: Standard 11-25-2021 08:55-0400 Body height 171.45 cm June Lamas LPN [facility], [facility].; [facility], [facility]. 11-25-2021 08:55-0400 Body mass index (BMI) [Ratio] 22.99 kg/m2 June Lamas [facility], [facility].; [place] [employer] [facility], [facility]. 11-25-2021 08:55-0400 Body surface area Derived from formula 1.79 m2 June Lamas LPN [facility], [facility].; [place] [employer] [facility], [facility]. 11-25-2021 08:55-0400 Body temperature 98.4 [degF] June Lamas LPN [facility], [facility].; [place] [employer] [facility], [facility]. Comment on above: Method: Tympanic 11-25-2021 08:55-0400 Body weight 67.59 kg June Lamas [facility], [facility].; [place] [employer] [facility], [facility]. 11-25-2021 08:55-0400 Diastolic blood pressure 77 mm[Hg] June Lamas LPN [facility], [facility].; [employer] [facility], [facility]. Comment on above: Patient Position: Sitting; Cuff Location : Right Arm; Cuff Size: Standard 11-25-2021 08:55-0400 Heart rate 101 /min June Lamas LPN [facility].; [place] [employer] [facility], [facility]. Comment on above: Pattern: Regular 11-25-2021 08:55-0400 Inhaled oxygen concentration 20 % June Lamas LPN [facility], [facility].; [facility], [facility]. Comment on above: Room air 11-25-2021 08:55-0400 Inhaled oxygen concentration 21 % June Lamas [facility], [facility].; [place] [employer] [facility], [facility]. Comment on above: Room air 11-25-2021 08:55-0400 SaO2% (BldA) [Mass fraction] 99 % June Lamas [facility], [facility].; [place] [employer] [facility], [facility]. 11-25-2021 08:55-0400 Systolic blood pressure 117 mm[Hg] June Lamas [facility], [facility].; [place] [employer] [facility], [facility]. Comment on above: Patient Position: Sitting; Cuff Location : Right Arm; Cuff Size: Standard 09-01-2021 11:40-0500 Body height 171.45 cm Juliet Patten [facility], [facility].; [place] [employer] [facility], [facility]. 09-01-2021 11:40-0500 Body mass index (BMI) [Ratio] 23.76 kg/m2 Juliet Patten [facility], [facility].; [place] [employer] [facility], [facility]. 09-01-2021 11:40-0500 Body surface area Derived from formula 1.82 m2 Juliet Patten [facility], [facility].; [place] [employer] [facility], [facility]. 09-01-2021 11:40-0500 Body temperature 100 [degF] Juliet Patten [facility], [facility].; [employer] [facility]. Comment on above: Method: Tympanic 09-01-2021 11:40-0500 Body weight 69.85 kg Juliet Patten LPN [facility], [facility].; [place] [employer] [facility], [facility]. 09-01-2021 11:40-0500 Diastolic blood pressure 81 mm[Hg] Juliet Patten LPN [facility], [facility].; [employer]. Comment on above: Patient Position: Sitting; Cuff Location : Left Arm; Cuff Size: Standard 09-01-2021 11:40-0500 Heart rate 99 /min Juliet Patten [facility] [employer]. Comment on above: Pattern: Regular 09-01-2021 11:40-0500 Inhaled oxygen concentration 20 % Juliet Alvaradoach [facility] [employer]. Comment on above: Room air 09-01-2021 11:40-0500 Inhaled oxygen concentration 21 % Juliet Alvaradoach [facility] [employer]. Comment on above: Room air 09-01-2021 11:40-0500 SaO2% (BldA) [Mass fraction] 98 % Juliet Collier Earline [facility] [employer]. 09-01-2021 11:40-0500 Systolic blood pressure 124 mm[Hg] Juliet Collier Earline [facility] [employer]. Comment on above: Patient Position: Sitting; Cuff Location : Left Arm; Cuff Size: Standard 05-12-2021 14:28-0400 Body height 171.45 cm Juliet Collier Earline [facility] [employer]. 05-12-2021 14:28-0400 Body mass index (BMI) [Ratio] 23.3 kg/m2 Juliet M Earline [facility] [employer] [facility]. 05-12-2021 14:28-0400 Body surface area Derived from formula 1.8 m2 Julietkiara Alvaradoach [facility], [facility].; [employer]. 05-12-2021 14:28-0400 Body weight 68.49 kg Juliet M Earline [facility], [facility].; [employer]. 05-12-2021 14:28-0400 Diastolic blood pressure 83 mm[Hg] Juliet Alvaradoach [facility] [employer]. Comment on above: Patient Position: Sitting; Cuff Location : Left Arm; Cuff Size: Standard 05-12-2021 14:28-0400 Heart rate 76 /min Juliet Patten LPN [facility].; [employer]. Comment on above: Pattern: Regular 05-12-2021 14:28-0400 Systolic blood pressure 118 mm[Hg] Juliet Patten LPN [facility].; [employer]. Comment on above: Patient Position: Sitting; Cuff Location : Left Arm; Cuff Size: Standard 12-05-2020 09:02-0400 Body height 171.45 cm Supriya Dayana Abiquo PA-C Work Phone: [place] [employer]. 12-05-2020 09:02-0400 Body mass index (BMI) [Ratio] 22.53 kg/m2 Lettuce Eat PA-C Work Phone: [employer].; [employer]. 12-05-2020 09:02-0400 Body surface area Derived from formula 1.78 m2 Lettuce Eat PA-C Work Phone: [employer].; [place]. 12-05-2020 09:02-0400 Body temperature 97 [degF] Lettuce Eat PA-C Work Phone: [employer].; [place]. Comment on above: Method: Tympanic 12-05-2020 09:02-0400 Body weight 66.23 kg Lettuce Eat PA-C Work Phone: [employer].; [place]. 12-05-2020 09:02-0400 Diastolic blood pressure 71 mm[Hg] Lettuce Eat PA-C Work Phone: [employer].; [place]. Comment on above: Patient Position: Sitting; Cuff Location : Right Arm; Cuff Size: Standard 12-05-2020 09:02-0400 Heart rate 106 /min Lettuce Eat PA-C Work Phone: [employer].; [employer]. Comment on above: Pattern: Regular 12-05-2020 09:02-0400 Systolic blood pressure 106 mm[Hg] Supriya Anne Prospect PA-C Work Phone: [place] [employer]; [employer]. Comment on above: Patient Position: Sitting; Cuff Location : Right Arm; Cuff Size: Standard 09-19-2020 11:05-0500 Body height 171.45 cm Supriya Anne Abiquo PA-C Work Phone: [place] [employer]; [employer] 09-19-2020 11:05-0500 Body mass index (BMI) [Ratio] 21.91 kg/m2 Supriya Dayana Abiquo PA-C Work Phone: [employer]; [employer] 09-19-2020 11:05-0500 Body surface area Derived from formula 1.76 m2 Supriya Dayana Abiquo PA-C Work Phone: [employer]; [employer] 09-19-2020 11:05-0500 Body temperature 97.3 [degF] Supriya Anne Abiquo PA-C Work Phone: [employer]; [employer]. Comment on above: Method: Tympanic 09-19-2020 11:05-0500 Body weight 64.41 kg Supriya Anne Prospect PA-C Work Phone: [employer]; [employer]. 09-19-2020 11:05-0500 Diastolic blood pressure 78 mm[Hg] Supriya Dayana Abiquo PA-C Work Phone: [employer]; [employer] Comment on above: Patient Position: Sitting; Cuff Location : Right Arm; Cuff Size: Standard 09-19-2020 11:05-0500 Heart rate 111 /min Supriya Dayana [place] PA-C Work Phone: [employer]; [facility] Comment on above: Pattern: Regular 09-19-2020 11:05-0500 Systolic blood pressure 119 mm[Hg] Supriya [place] PA-C Work Phone: [facility]; [employer] Comment on above: Patient Position: Sitting; Cuff Location : Right Arm; Cuff Size: Standard 08-19-2020 15:49-0500 Body height 171.45 cm Supriya Cheng RN [facility] [employer]. 08-19-2020 15:49-0500 Body mass index (BMI) [Ratio] 22.84 kg/m2 Supriya Cheng RN [employer].; [employer]. 08-19-2020 15:49-0500 Body surface area Derived from formula 1.79 m2 Supriya Cheng RN [place] [employer].; [employer]. 08-19-2020 15:49-0500 Body temperature 99 [degF] Supriya Cheng RN [employer].; [place]. Comment on above: Method: Tympanic 08-19-2020 15:49-0500 Body weight 67.13 kg Supriya Cheng RN [place] [employer] [place]. 08-19-2020 15:49-0500 Diastolic blood pressure 75 mm[Hg] Supriya Cheng RN [employer].; [employer]. Comment on above: Patient Position: Sitting; Cuff Location : Left Arm; Cuff Size: Standard 08-19-2020 15:49-0500 Heart rate 80 /min Supriya Cheng RN [employer].; [place]. Comment on above: Pattern: Regular 08-19-2020 15:49-0500 Systolic blood pressure 114 mm[Hg] Supriya Cheng RN [employer].; [place]. Comment on above: Patient Position: Sitting; Cuff Location : Left Arm; Cuff Size: Standard 03-06-2020 11:14-0400 Body height 171.45 cm Ann Bryant LPN [facility] [employer] 03-06-2020 11:14-0400 Body mass index (BMI) [Ratio] 21.76 kg/m2 Ann Bryant LPN [facility] [employer] 03-06-2020 11:14-0400 Body surface area Derived from formula 1.75 m2 Ann Bryant LPN [facility] [place] [employer] 03-06-2020 11:14-0400 Body temperature 99.1 [degF] Ann Bryant LPN [facility].; [employer] Comment on above: Method: Tympanic 03-06-2020 11:140400 Body weight 63.96 kg Ann Bryant LPN [facility], [facility].; [employer] 03-06-2020 11:14-0400 Diastolic blood pressure 72 mm[Hg] Ann Bryant LPN [facility], [facility].; [employer], [facility] [facility]. Comment on above: Patient Position: Sitting; Cuff Location : Left Arm; Cuff Size: Standard 03-06-2020 11:14-0400 Heart rate 75 /min Ann Bryant LPN [facility], [facility].; [employer], [facility]. Comment on above: Pattern: Regular 03-06-2020 11:14-0400 Systolic blood pressure 108 mm[Hg] Ann Bryant LPN [facility] [employer], [facility] [facility]. Comment on above: Patient Position: Sitting; Cuff Location : Left Arm; Cuff Size: Standard 06-13-2019 13:06-0500 Body height 171.45 cm Williams Hallman LPN [facility] [employer] 06-13-2019 13:06-0500 Body mass index (BMI) [Ratio] 21.6 kg/m2 Williams Hallman POOLING OPERATOR [facility] [employer] 06-13-2019 13:06-0500 Body surface area Derived from formula 1.75 m2 Williams Hallman POOLING OPERATOR [facility] [employer] 06-13-2019 13:06-0500 Body temperature 98 [degF] Neilee L Vess POOLING OPERATOR [place] [place]. Comment on above: Method: Tympanic 06-13-2019 13:06-0500 Body weight 63.5 kg Neilee L Vess POOLING OPERATOR [employer] 06-13-2019 13:06-0500 Diastolic blood pressure 70 mm[Hg] Neilee L Vess POOLING OPERATOR [place].; [employer] Comment on above: Patient Position: Sitting; Cuff Location : Left Arm; Cuff Size: Standard 06-13-2019 13:06-0500 Heart rate 82 /min FastSoftilee L Vess POOLING OPERATOR [place] [place]. Comment on above: Pattern: Regular 06-13-2019 13:06-0500 Systolic blood pressure 113 mm[Hg] Neilee L Vess POOLING OPERATOR [employer] Comment on above: Patient Position: Sitting; Cuff Location : Left Arm; Cuff Size: Standard 05-17-2019 09:100400 Body height 171.45 cm Jessica Young RN [place] [place] 05-17-2019 09:10-0400 Body mass index (BMI) [Ratio] 21.6 kg/m2 Jessica Young RN [place].; [employer] 05-17-2019 09:100400 Body surface area Derived from formula 1.75 m2 Jessica Young RN [place].; [place]. 05-17-2019 09:10-0400 Body temperature 99.4 [degF] Jessica Young RN [place].; [place] Comment on above: Method: Tympanic 05-17-2019 09:100400 Body weight 63.5 kg Jessica Young RN [place].; [employer] 05-17-2019 09:100400 Diastolic blood pressure 68 mm[Hg] Jessica Yougn RN [place].; [facility] Comment on above: Patient Position: Sitting; Cuff Location : Left Arm; Cuff Size: Standard 05-17-2019 09:100400 Heart rate 80 /min Jessica Young RN [employer] [employer] Comment on above: Pattern: Regular 05-17-2019 09:100400 Systolic blood pressure 114 mm[Hg] Jessica Young RN [employer] Comment on above: Patient Position: Sitting; Cuff Location : Left Arm; Cuff Size: Standard 04-27-2019 08:21-0400 Body height 171.45 cm Anabel Lowry LPN [employer] [employer] 04-27-2019 08:21-0400 Body mass index (BMI) [Ratio] 21.6 kg/m2 Anabel Lowry LPN [employer] [employer] [employer] 04-27-2019 08:21-0400 Body surface area Derived from formula 1.75 m2 Anabel Lowry LPN [employer] [employer] 04-27-2019 08:21-0400 Body weight 63.5 kg Anabel Lowry LPN [employer] 04-25-2019 08:42-0400 Body height 171.45 cm Juliet Patten LPN [employer] 04-25-2019 08:42-0400 Body mass index (BMI) [Ratio] 21.6 kg/m2 Juliet Patten LPN [employer] 04-25-2019 08:42-0400 Body surface area Derived from formula 1.75 m2 Juliet Patten LPN [employer] 04-25-2019 08:42-0400 Body weight 63.5 kg Juliet Patten LPN [employer] [employer] 04-25-2019 08:42-0400 Diastolic blood pressure 76 mm[Hg] Juliet Patten LPN [facility] [place]. Comment on above: Patient Position: Sitting; Cuff Location : Right Arm; Cuff Size: Standard 04-25-2019 08:42-0400 Heart rate 77 /min [facility] [place]. Comment on above: Pattern: Regular 04-25-2019 08:42-0400 Systolic blood pressure 119 mm[Hg] Juliet Patten [facility], [facility] [facility].; [place]. Comment on above: Patient Position: Sitting; Cuff Location : Right Arm; Cuff Size: Standard 08-05-2017 21:04-0500 Body temperature 97.8 [degF] Alta Zapata MD Work Phone: [facility] [place]. 08-05-2017 21:04-0500 Body weight 68.49 kg Alta Zapata MD Work Phone: [place] [employer] [place]. 08-05-2017 21:04-0500 Diastolic blood pressure 76 mm[Hg] Alta Zapata MD Work Phone: [place] [employer] [facility] [place]. Comment on above: Patient Position: Sitting; Cuff Location : Left Arm; Cuff Size: Standard 08-05-2017 21:04-0500 Heart rate 84 /min Alta Zapata MD Work Phone: [facility] [place]. Comment on above: Pattern: Regular 08-05-2017 21:04-0500 Systolic blood pressure 121 mm[Hg] Alta Zapata MD Work Phone: [place] [facility] [place]. Comment on above: Patient Position: Sitting; Cuff Location : Left Arm; Cuff Size: Standard 06-16-2017 16:04-0500 Body height 171.63 cm Naheed Her JAVAD Work Phone: [place] [facility] [place]. 06-16-2017 16:04-0500 Body mass index (BMI) [Ratio] 22.33 kg/m2 Naheed Her LPN Work Phone: [place]. 06-16-2017 16:04-0500 Body surface area Derived from formula 1.77 m2 Naheed Her LPN Work Phone: [place]. 06-16-2017 16:04-0500 Body weight 65.77 kg Naheed Her LPN Work Phone: [place]. 06-16-2017 16:04-0500 Diastolic blood pressure 76 mm[Hg] Naheed Her LPN Work Phone: [facility]; [place]. Comment on above: Patient Position: Sitting; Cuff Location : Left Arm; Cuff Size: Standard 06-16-2017 16:04-0500 Heart rate 86 /min Naheed Her LPN Work Phone: [facility]; [place]. Comment on above: Pattern: Regular 06-16-2017 16:04-0500 Systolic blood pressure 121 mm[Hg] Naheed Her LPN Work Phone: [facility]; [place]. Comment on above: Patient Position: Sitting; Cuff Location : Left Arm; Cuff Size: Standard 04-14-2017 16:06-0400 Body height 171.63 cm Naheed Her LPN Work Phone: [facility]; [place]. 04-14-2017 16:06-0400 Body mass index (BMI) [Ratio] 21.1 kg/m2 Naheed Taina POOLING OPERATOR Work Phone: [place]. 04-14-2017 16:06-0400 Body surface area Derived from formula 1.73 m2 Naheed Taina POOLING OPERATOR Work Phone: [facility]; [place]. 04-14-2017 16:06-0400 Body weight 62.14 kg Naheedtanner Koenigy POOLING OPERATOR Work Phone: [place]. 02-17-2017 11:46-0400 Body height 171.63 cm Naheedtanner Koenigy POOLING OPERATOR Work Phone: [place]. 02-17-2017 11:46-0400 Body mass index (BMI) [Ratio] 21.1 kg/m2 Naheed Taina POOLING OPERATOR Work Phone: [place]. 02-17-2017 11:46-0400 Body surface area Derived from formula 1.73 m2 Naheedtanner Koenigy POOLING OPERATOR Work Phone: [place]. 02-17-2017 11:46-0400 Body weight 62.14 kg Naheedtanner Koenigy POOLING OPERATOR Work Phone: [place]. 02-17-2017 11:46-0400 Diastolic blood pressure 73 mm[Hg] Naheedtanner Koenigy POOLING OPERATOR Work Phone: [place]. Comment on above: Patient Position: Sitting; Cuff Location : Left Arm; Cuff Size: Standard 02-17-2017 11:46-0400 Heart rate 106 /min Naheed Koenigy POOLING OPERATOR Work Phone: [place]. Comment on above: Pattern: Regular 02-17-2017 11:46-0400 Systolic blood pressure 109 mm[Hg] Naheed Taina POOLING OPERATOR Work Phone: [place]. Comment on above: Patient Position: Sitting; Cuff Location : Left Arm; Cuff Size: Standard 12-16-2016 09:37-0400 Body height 171.63 cm Naheedtanner Koenigy POOLING OPERATOR Work Phone: [place]. 12-16-2016 09:37-0400 Body mass index (BMI) [Ratio] 23.25 kg/m2 Naheed Her LPN Work Phone: [place]. 12-16-2016 09:37-0400 Body surface area Derived from formula 1.81 m2 Naheed Her LPN Work Phone: [place]. 12-16-2016 09:37-0400 Body temperature 99.6 [degF] Naheed Her LPN Work Phone: [place]. Comment on above: Method: Tympanic 12-16-2016 09:37-0400 Body weight 68.49 kg Naheed Her LPN Work Phone: [place]. 12-16-2016 09:37-0400 Diastolic blood pressure 71 mm[Hg] Naheed Her LPN Work Phone: [place].; [place]. Comment on above: Patient Position: Sitting; Cuff Location : Right Arm; Cuff Size: Standard 12-16-2016 09:37-0400 Heart rate 101 /min Naheed Her LPN Work Phone: [facility]; [place]. Comment on above: Pattern: Regular 12-16-2016 09:37-0400 Systolic blood pressure 126 mm[Hg] Naheed Her LPN Work Phone: [place]. Comment on above: Patient Position: Sitting; Cuff Location : Right Arm; Cuff Size: Standard 12-09-2016 09:45-0400 Body weight 75.3 kg Naheed Her LPN Work Phone: [place]. 12-09-2016 09:45-0400 Diastolic blood pressure 73 mm[Hg] Naheed Her LPN Work Phone: [place]. Comment on above: Patient Position: Sitting; Cuff Location : Left Arm; Cuff Size: Standard 12-09-2016 09:45-0400 Heart rate 87 /min Naheed Taina POOLING OPERATOR Work Phone: [place]. Comment on above: Pattern: Regular 12-09-2016 09:45-0400 Systolic blood pressure 120 mm[Hg] Naheed Taina POOLING OPERATOR Work Phone: [employer] [place]. Comment on above: Patient Position: Sitting; Cuff Location : Left Arm; Cuff Size: Standard 12-03-2016 16:46-0400 Body weight 76.2 kg Neilee L Vess POOLING OPERATOR [place]. 12-03-2016 16:46-0400 Diastolic blood pressure 72 mm[Hg] Neilee L Vess POOLING OPERATOR [place]. Comment on above: Patient Position: Sitting; Cuff Location : Right Arm; Cuff Size: Standard 12-03-2016 16:46-0400 Heart rate 85 /min Neilee L Vess POOLING OPERATOR [place]. Comment on above: Pattern: Regular 12-03-2016 16:46-0400 Systolic blood pressure 120 mm[Hg] Neilee L Vess POOLING OPERATOR [place]. Comment on above: Patient Position: Sitting; Cuff Location : Right Arm; Cuff Size: Standard 11-26-2016 16:05-0400 Body weight 75.3 kg Neilee L Vess POOLING OPERATOR [place] 11-26-2016 16:05-0400 Diastolic blood pressure 74 mm[Hg] Neilee L Vess POOLING OPERATOR [place]. Comment on above: Patient Position: Sitting; Cuff Location : Left Arm; Cuff Size: Standard 11-26-2016 16:05-0400 Heart rate 91 /min Neilee L Vess POOLING OPERATOR [place]. Comment on above: Pattern: Regular 11-26-2016 16:05-0400 Systolic blood pressure 119 mm[Hg] Neilee L Vess POOLING OPERATOR [employer] [place]. Comment on above: Patient Position: Sitting; Cuff Location : Left Arm; Cuff Size: Standard 11-18-2016 16:31-0400 Body weight 74.39 kg Naheed Taina POOLING OPERATOR Work Phone: [place]. 11-18-2016 16:31-0400 Diastolic blood pressure 72 mm[Hg] Naheed Taina POOLING OPERATOR Work Phone: [place].; [place]. Comment on above: Patient Position: Sitting; Cuff Location : Left Arm; Cuff Size: Standard 11-18-2016 16:31-0400 Heart rate 83 /min Naheed Taina POOLING OPERATOR Work Phone: [facility]; [place]. Comment on above: Pattern: Regular 11-18-2016 16:31-0400 Systolic blood pressure 114 mm[Hg] Naheed Taina POOLING OPERATOR Work Phone: [facility]; [place]. Comment on above: Patient Position: Sitting; Cuff Location : Left Arm; Cuff Size: Standard 11-12-2016 16:49-0400 Body weight 74.39 kg Neilee L Vess POOLING OPERATOR [employer] [place]. 11-12-2016 16:49-0400 Diastolic blood pressure 62 mm[Hg] Neilee L Vess POOLING OPERATOR [place]. Comment on above: Patient Position: Sitting; Cuff Location : Right Arm; Cuff Size: Standard 11-12-2016 16:49-0400 Heart rate 89 /min Neilee L Vess POOLING OPERATOR [place]. Comment on above: Pattern: Regular 11-12-2016 16:49-0400 Systolic blood pressure 111 mm[Hg] Neilee L Vess POOLING OPERATOR [place]. Comment on above: Patient Position: Sitting; Cuff Location : Right Arm; Cuff Size: Standard 11-05-2016 16:38-0400 Body weight 73.48 kg Neilee L Vess POOLING OPERATOR [employer] [place]. 11-05-2016 16:38-0400 Diastolic blood pressure 71 mm[Hg] Neilee L Vess POOLING OPERATOR [employer] [place]. Comment on above: Patient Position: Sitting; Cuff Location : Left Arm; Cuff Size: Standard 11-05-2016 16:38-0400 Heart rate 95 /min Neilee L Vess POOLING OPERATOR [employer] [place]. Comment on above: Pattern: Regular 11-05-2016 16:38-0400 Systolic blood pressure 109 mm[Hg] Neilee L Vess POOLING OPERATOR [employer] [place]. Comment on above: Patient Position: Sitting; Cuff Location : Left Arm; Cuff Size: Standard 09-18-2016 16:12-0500 Body weight 71.22 kg Naheed Taina POOLING OPERATOR Work Phone: [employer] [place]. 09-18-2016 16:12-0500 Diastolic blood pressure 76 mm[Hg] Naheed Taina POOLING OPERATOR Work Phone: [employer] [place]. Comment on above: Patient Position: Sitting; Cuff Location : Left Arm; Cuff Size: Standard 09-18-2016 16:12-0500 Heart rate 96 /min Naheed Taina POOLING OPERATOR Work Phone: [employer] [place]. Comment on above: Pattern: Regular 09-18-2016 16:12-0500 Systolic blood pressure 118 mm[Hg] Naheed Taina POOLING OPERATOR Work Phone: [place]. Comment on above: Patient Position: Sitting; Cuff Location : Left Arm; Cuff Size: Standard 08-20-2016 16:08-0500 Body weight 68.04 kg Juana Greene RN Work Phone: [employer] [place]. 08-20-2016 16:08-0500 Diastolic blood pressure 75 mm[Hg] Juana Greene RN Work Phone: [employer] [place]. Comment on above: Patient Position: Sitting; Cuff Location : Right Arm; Cuff Size: Standard 08-20-2016 16:08-0500 Heart rate 103 /min Juana Greene RN Work Phone: [employer] [place]. Comment on above: Pattern: Regular 08-20-2016 16:08-0500 Systolic blood pressure 119 mm[Hg] Juana Greene RN Work Phone: [employer] [place]. Comment on above: Patient Position: Sitting; Cuff Location : Right Arm; Cuff Size: Standard 08-10-2016 13:56-0500 Body weight 68.04 kg Naheed Taina POOLING OPERATOR Work Phone: [place]. 08-10-2016 13:56-0500 Diastolic blood pressure 70 mm[Hg] Naheed Taina POOLING OPERATOR Work Phone: [place]. Comment on above: Patient Position: Sitting; Cuff Location : Left Arm; Cuff Size: Standard 08-10-2016 13:56-0500 Heart rate 91 /min Naheed Taina POOLING OPERATOR Work Phone: [employer] [place]. Comment on above: Pattern: Regular 08-10-2016 13:56-0500 Systolic blood pressure 120 mm[Hg] Naheed Taina POOLING OPERATOR Work Phone: [place]. Comment on above: Patient Position: Sitting; Cuff Location : Left Arm; Cuff Size: Standard 07-15-2016 16:07-0500 Body weight 67.13 kg Naheed Taina POOLING OPERATOR Work Phone: [place]. 07-15-2016 16:07-0500 Diastolic blood pressure 71 mm[Hg] Naheed Taina POOLING OPERATOR Work Phone: [place]. Comment on above: Patient Position: Sitting; Cuff Location : Left Arm; Cuff Size: Standard 07-15-2016 16:07-0500 Heart rate 83 /min Naheed Taina POOLING OPERATOR Work Phone: [place]. Comment on above: Pattern: Regular 07-15-2016 16:07-0500 Systolic blood pressure 112 mm[Hg] Naheed Taina POOLING OPERATOR Work Phone: [place]. Comment on above: Patient Position: Sitting; Cuff Location : Left Arm; Cuff Size: Standard 06-10-2016 13:12-0500 Body weight 65.32 kg Naheed Taina POOLING OPERATOR Work Phone: [place]. 06-10-2016 13:12-0500 Diastolic blood pressure 69 mm[Hg] Naheed Taina POOLING OPERATOR Work Phone: [place]. Comment on above: Patient Position: Sitting; Cuff Location : Left Arm; Cuff Size: Standard 06-10-2016 13:12-0500 Heart rate 86 /min Naheed Taina POOLING OPERATOR Work Phone: [place]. Comment on above: Pattern: Regular 06-10-2016 13:12-0500 Systolic blood pressure 113 mm[Hg] Naheed Taina POOLING OPERATOR Work Phone: [place]. Comment on above: Patient Position: Sitting; Cuff Location : Left Arm; Cuff Size: Standard 05-12-2016 09:41-0400 Body weight 65.32 kg Neilee L Vess POOLING OPERATOR [place]. 05-12-2016 09:41-0400 Diastolic blood pressure 75 mm[Hg] Neilee L Vess POOLING OPERATOR [place]. Comment on above: Patient Position: Sitting; Cuff Location : Right Arm; Cuff Size: Standard 05-12-2016 09:41-0400 Heart rate 104 /min Neilee L Vess POOLING OPERATOR [place] [employer] [place]. Comment on above: Pattern: Regular 05-12-2016 09:41-0400 Systolic blood pressure 120 mm[Hg] Neilee L Vess POOLING OPERATOR [employer] [place]. Comment on above: Patient Position: Sitting; Cuff Location : Right Arm; Cuff Size: Standard 05-01-2016 15:37-0400 Body height 171.63 cm Naheed Taina POOLING OPERATOR Work Phone: [employer]; [place]. 05-01-2016 15:37-0400 Body mass index (BMI) [Ratio] 21.87 kg/m2 Naheed Taina POOLING OPERATOR Work Phone: [employer] [employer] 05-01-2016 15:37-0400 Body surface area Derived from formula 1.76 m2 Naheed Taina POOLING OPERATOR Work Phone: [employer]; [place]. 05-01-2016 15:37-0400 Body weight 64.41 kg Naheed Taina POOLING OPERATOR Work Phone: [employer] [employer] 05-01-2016 15:37-0400 Diastolic blood pressure 82 mm[Hg] Naheed Taina POOLING OPERATOR Work Phone: [employer] [place]. Comment on above: Patient Position: Sitting; Cuff Location : Left Arm; Cuff Size: Standard 05-01-2016 15:37-0400 Heart rate 102 /min Naheed Taina POOLING OPERATOR Work Phone: [employer] [place]. Comment on above: Pattern: Regular 05-01-2016 15:37-0400 Systolic blood pressure 127 mm[Hg] Naheed Taina POOLING OPERATOR Work Phone: [employer] [place]. Comment on above: Patient Position: Sitting; Cuff Location : Left Arm; Cuff Size: Standard 04-04-2015 11:29-0400 Body height 171.63 cm Jessica Young RN [place] [employer] [place]. 04-04-2015 11:29-0400 Body mass index (BMI) [Ratio] 21.25 kg/m2 Jessica Young RN [place] [employer] [place]. 04-04-2015 11:29-0400 Body surface area Derived from formula 1.74 m2 Jessica Young RN [place] [employer] [place]. 04-04-2015 11:29-0400 Body weight 62.6 kg Jessica Young RN [place] [employer] [place]. 04-04-2015 11:29-0400 Diastolic blood pressure 78 mm[Hg] Jessica Young RN [employer] [place]. Comment on above: Patient Position: Sitting; Cuff Location : Left Arm; Cuff Size: Standard 04-04-2015 11:29-0400 Systolic blood pressure 116 mm[Hg] Jessica Young RN [employer] [place]. Comment on above: Patient Position: Sitting; Cuff Location : Left Arm; Cuff Size: Standard 03-11-2015 14:15-0400 Body height 171.45 cm Jessica Young RN [place] [employer] [place]. 03-11-2015 14:15-0400 Body mass index (BMI) [Ratio] 21.29 kg/m2 Jessica Young RN [facility] [employer] [place]. 03-11-2015 14:15-0400 Body surface area Derived from formula 1.74 m2 Jessica Young RN [facility] [employer] [place]. 03-11-2015 14:15-0400 Body temperature 99.1 [degF] Jessica Young RN [employer] [place]. Comment on above: Method: Tympanic 03-11-2015 14:15-0400 Body weight 62.6 kg Jessica Young RN [place] [facility] [facility] [employer] 03-11-2015 14:15-0400 Diastolic blood pressure 80 mm[Hg] [facility] [employer] Comment on above: Patient Position: Sitting; Cuff Location : Left Arm; Cuff Size: Standard 03-11-2015 14:15-0400 Heart rate 73 /min Jessica Young RN [place] [facility] [facility] [employer] Comment on above: Pattern: Regular 03-11-2015 14:15-0400 Systolic blood pressure 126 mm[Hg] Jessica Young RN [place] [employer] [employer]. Comment on above: Patient Position: Sitting; Cuff Location : Left Arm; Cuff Size: Standard 02-08-2014 10:030400 Body height 146.05 cm Jessica Young RN [place] [facility] [employer] 02-08-2014 10:03-0400 Body mass index (BMI) [Ratio] 29.24 kg/m2 Jessica Young RN [place] [facility] [employer] 02-08-2014 10:03-0400 Body surface area Derived from formula 1.54 m2 Jessica Young RN [place] [facility].; [employer] 02-08-2014 10:03-0400 Body temperature 99.6 [degF] Jessica Young RN [place] [employer] [employer] Comment on above: Method: Tympanic 02-08-2014 10:030400 Body weight 62.37 kg Jessica Young RN [place] [employer] [place]. 02-08-2014 10:030400 Diastolic blood pressure 69 mm[Hg] Jessica Young RN [place] [employer] [employer] Comment on above: Patient Position: Sitting; Cuff Location : Left Arm; Cuff Size: Standard 02-08-2014 10:03-0400 Heart rate 85 /min Jessica Young RN [place] [employer]. Comment on above: Pattern: Regular 02-08-2014 10:03-0400 Systolic blood pressure 108 mm[Hg] Jessica Young RN [facility].; [facility]. Comment on above: Patient Position: Sitting; Cuff Location : Left Arm; Cuff Size: Standard Encounters Encounter Date Encounter Type Care Provider Facility Start: 04-12-2025 ambulatory Alanis BARNETT Facil ity:[facility] Start: 03-29-2025 End: 03-29-2025 Telemedicine consultation with patient Bobbi De La Paz MD Work Phone: [facility] Start: 03-29-2025 End: 03-29-2025 ambulatory Bobbi De La Paz MD Work Phone: [facility] Comment on above: Esophagitis (Primary Dx); Malignant neoplasm of thyroid gland (HCC) Start: 03-22-2025 Encounter for other preprocedural examination David Cano [facility] Start: 03-13-2025 End: 03-16-2025 ambulatory Bobbi De La Paz MD Work Phone: [facility] Comment on above: Medication Start: 03-01-2025 End: 03-01-2025 ambulatory BOBBI DE LA PAZ Facility:[facility] Start: 03-01-2025 ambulatory Alanis BARNETT Facil ity:[facility] Start: 03-01-2025 Non-patient / Non-visit Dr. David Cano MD -[facility] Start: 03-01-2025 End: 03-01-2025 Admission to same day surgery center Dr. David Cano MD -Endoscopy Work Phone: Start: 03-01-2025 End: 03-01-2025 ambulatory Alanis BARNETT Work Phone: -Endoscopy Start: 02-14-2025 End: 02-14-2025 Telephone encounter Bobbi De La Paz MD Work Phone: [facility] Comment on above: Post Op Start: 02-13-2025 End: 02-13-2025 Telemedicine consultation with patient Bobbi De La Paz MD Work Phone: [facility] Start: 02-13-2025 End: 02-13-2025 ambulatory Bobbi De La Paz MD Work Phone: [facility] [place] Comment on above: Malignant neoplasm o f thyroid gland (HCC) Start: 01-30-2025 End: 01-30-2025 Telephone encounter Jeyson Bustamante MD Work Phone: Endocrine Surgery Comment on above: Appointment (Left a message for patient to call [phone] to schedule a Consult with a Endo [...] Endocrine Surgery Start: 01-29-2025 End: 01-29-2025 ambulatory [facility] Facility:[facility] Start: 01-17-2025 End: 01-17-2025 Telephone encounter Jeyson Bustamante MD Work Phone: Endocrine Surgery Start: 01-16-2025 End: 01-17-2025 Admission to same day surgery center Jeyson Bustamante MD Work Phone: Endocrine Surgery Comment on above: Work Release Start: 01-16-2025 End: 01-17-2025 ambulatory Jeyson Bustamante MD Work Phone: Endocrine Surgery Start: 01-11-2025 End: 01-12-2025 ambulatory JEYSON BUSTAMANTE Facility:[facility] Start: 01-02-2025 End: 01-02-2025 Admission to establishment [facility] Start: 01-02-2025 End: 01-02-2025 Anesthesia consultation [facility] Comment on above: Esophagitis (Primary Dx); Papillary carcinoma of thyroid (HCC); PONV (postoperative nausea and vomiting); Anxiety; History of lobectomy of thyroid Start: 01-02-2025 End: 01-02-2025 ambulatory ALANIS J BATISTA Facility:[facility] Start: 12-06-2024 End: 12-13-2024 Orders Only Jeyson [...] Outside Referral Req uests Start: 10-26-2024 ambulatory Alanis Batista PA Facil ity:[facility] Start: 10-26-2024 Non-patient / Non-visit Dr. David Cano MD -[facility] Start: 10-26-2024 End: 10-26-2024 Admission to same day surgery center Dr. David Cano MD -Endoscopy Work Phone: Start: 10-26-2024 End: 10-26-2024 ambulatory Alanis Batista PA Work Phone: [facility] Work Phone: Start: 10-20-2024 End: 10-20-2024 ambulatory Alanis Batista PA Work Phone: [facility] Work Phone: Start: 10-20-2024 End: 10-20-[address] David Cano MD -Ultrasound, [facility] Work Phone: Start: 10-20-2024 End: 10-20-2024 ambulatory Alanis Batista PA Facility:[facility] Start: 10-04-2024 End: 10-04-2024 ambulatory Alanis Batista PA Work Phone: [facility] Work Phone: Start: 10-04-2024 End: 10-04-[address] David Cano MD -Laboratory, Specimen Work Phone: Start: 10-04-2024 End: 10-04-[address] David Cano MD -[facility] Work Phone: Start: 10-04-2024 End: 10-04-2024 ambulatory Alanisgolden Paceer PA Facility:[facility] Start: 10-04-2024 Non-patient / Non-visit Dr. Ramsey Sinclair MD -[facility] Start: 10-04-2024 End: 10-04-2024 ambulatory Alanis Batista PA Facility:[facility] Start: 09-06-2024 End: 09-06-2024 Orders Alanis Batista PA-C Work Phone: [place]. Start: 09-04-2024 End: 09-04-2024 Patient encounter procedure Alanis Paceer PA -Ultrasound, [facility] Work Phone: Start: 09-04-2024 End: 09-04-2024 ambulatory Alanisgolden Paceer PA Facility:[facility] Start: 08-31-2024 End: 08-31-2024 Orders Alanis Batista PA-C Work Phone: [place]. Start: 08-30-2024 End: 08-30-2024 Patient encounter procedure Alanis Batista PA-C Work Phone: [place]. Start: 08-30-2024 ambulatory [facility] Start: 08-30-2024 Patient encounter status Juliet Patten POOLING OPERATOR [place]. Start: 08-30-2024 Review Alanis Batista PA-C Work Phone: [place]. Start: 01-19-2024 End: 01-19-2024 Medication Alanis Batista PA-C Work Phone: [place]. Start: 07-14-2023 End: 07-14-2023 Patient encounter procedure Alanis Batista PA-C Work Phone: [facility] Start: 05-13-2023 Non-patient / Non-visit PA Alanis Paceer ANIBAL Work Phone: [facility] Start: 05-13-2023 End: 05-13-2023 Admission to same day surgery center PA Alanisgolden Batista ANIBAL Work Phone: [facility]-Endoscopy Work Phone: Start: 05-13-2023 End: 05-13-2023 ambulatory PA Alanis Batista ANIBAL Work Phone: [facility] Work Phone: Start: 04-21-2023 End: 04-21-2023 Patient encounter procedure PA Alanisgolden Batista ANIBAL Work Phone: [facility]-Ultrasound, [facility] Work Phone: Start: 11-02-2022 End: 11-02-2022 Office outpatient visit 25 minutes Alanis Batista PA-C Work Phone: [facility] Start: 05-20-2022 End: 05-20-2022 Medication Alanis Batista PA-C Work Phone: [place]. Start: 04-28-2022 End: 04-28-2022 Office outpatient visit 15 minutes Alanis Batista PA-C Work Phone: [place]. Start: 12-10-2021 End: 12-10-2021 Historical Summary Alanis Batista PA-C Work Phone: [facility] Start: 11-25-2021 End: 11-25-2021 Office outpatient visit 15 minutes Alanis Batista PA-C Work Phone: [place]. Start: 09-01-2021 End: 09-01-2021 Patient encounter procedure Alanis Batista PA-C Work Phone: [place]. Start: 06-17-2021 End: 06-17-2021 Medication Alanis Batista PA-C Work Phone: [facility] Start: 06-17-2021 End: 06-17-2021 Patient encounter status Alanis Batista PA-C Work Phone: [place] [place] Start: 05-21-2021 End: 05-21-2021 Orders Alanis Batista PA-C Work Phone: [employer] Start: 05-20-2021 End: 05-20-2021 ambulatory ALANIS BATISTA [facility] Start: 05-12-2021 End: 05-12-2021 Patient encounter procedure Alanis Batista PA-C Work Phone: [employer] Start: 05-12-2021 End: 05-12-2021 Patient encounter status Alanis Batista PA-C Work Phone: [place] [place] Start: 03-03-2021 End: 03-03-2021 Medication Alanis Paceer PA-C Work Phone: [place]. Start: 12-06-2020 End: 12-06-2020 ambulatory [facility] Start: 12-05-2020 End: 12-05-2020 Patient encounter procedure Alanis Paceer PA-C Work Phone: [place]. Start: 11-06-2020 End: 11-06-2020 Telephone follow-up Alanis Paceer PA-C Work Phone: [place]. Start: 11-01-2020 End: 11-01-2020 Emergency department patient visit [facility] Start: 09-19-2020 End: 09-19-2020 ambulatory [facility] Start: 09-19-2020 End: 09-19-2020 Patient encounter procedure Alanisgolden Paceer PA-C Work Phone: [facility] Start: 08-19-2020 End: 08-19-2020 Office outpatient visit 15 minutes Alanis Paceer PA-C Work Phone: [place]. Start: 03-06-2020 End: 03-06-2020 Patient encounter procedure Alanisgolden Paceer PA-C Work Phone: [place]. Start: 06-13-2019 End: 06-13-2019 Patient encounter procedure Alanisgolden Paceer PA-C Work Phone: [facility] Start: 05-17-2019 End: 05-17-2019 Patient encounter procedure Alanisgolden Paceer PA-C Work Phone: [facility] Start: 04-27-2019 End: 04-27-2019 Office outpatient visit 10 minutes Alanis Paceer PA-C Work Phone: [facility] Start: 04-25-2019 End: 04-25-2019 Patient encounter procedure Alanisgolden Paceer PA-C Work Phone: [facility] Start: 04-17-2019 End: 04-17-2019 Orders Alanis Paceer PA-C Work Phone: [place]. Start: 12-05-2018 End: 12-05-2018 Telephone follow-up Alanis Paceer PA-C Work Phone: [facility] Start: 06-15-2018 End: 06-15-2018 Nursing evaluation of patient and report Alanis Paceer PA-C Work Phone: [place]. Start: 08-05-2017 End: 08-15-2017 Patient encounter procedure Alanis Batista PA-C Work Phone: [facility] Start: 06-16-2017 End: 06-16-2017 Patient encounter procedure Alanis Batista PA-C Work Phone: [facility] Start: 04-14-2017 End: 04-14-2017 Procedure Alanis Batista PA-C Work Phone: [place]. Start: 02-17-2017 End: 02-17-2017 Patient encounter procedure Alanis Paceer PA-C Work Phone: [place]. Start: 12-16-2016 End: 12-16-2016 Patient encounter procedure Alanisgolden Paceer PA-C Work Phone: [place]. Start: 12-15-2016 End: 12-16-2016 Orders Alanis Paceer PA-C Work Phone: [place]. Start: 12-09-2016 End: 12-09-2016 Patient encounter procedure Alanis Paceer PA-C Work Phone: [place]. Start: 12-03-2016 End: 12-04-2016 Patient encounter procedure Alanisgolden Paceer PA-C Work Phone: [place]. Start: 11-26-2016 End: 11-26-2016 Patient encounter procedure Alanisgolden Paceer PA-C Work Phone: [place]. Start: 11-18-2016 End: 11-18-2016 Patient encounter procedure Alanis Paceer PA-C Work Phone: [place]. Start: 11-12-2016 End: 11-12-2016 Patient encounter procedure Alanis Paceer PA-C Work Phone: [place]. Start: 11-05-2016 End: 11-05-2016 Patient encounter procedure Alanisgolden Paceer PA-C Work Phone: [place]. Start: 10-22-2016 End: 10-22-2016 Patient encounter procedure Alanis Batista PA-C Work Phone: [place]. Start: 09-18-2016 End: 09-18-2016 Patient encounter procedure Alanis Batista PA-C Work Phone: [place]. Start: 08-20-2016 End: 08-20-2016 Patient encounter procedure Alanis Batista PA-C Work Phone: [facility] Start: 08-10-2016 End: 08-10-2016 Patient encounter procedure Alanis BARNETT-C Work Phone: [place]. Start: 08-10-2016 End: 08-10-2016 Orders Alanis BARNETT-C Work Phone: [place]. Start: 07-15-2016 End: 07-15-2016 Patient encounter procedure Alanis BARNETT-C Work Phone: [place]. Start: 06-10-2016 End: 06-10-2016 Patient encounter procedure Alanis BARNETT-C Work Phone: [facility] Start: 05-12-2016 End: 05-12-2016 Patient encounter procedure Alanis BARNETT-C Work Phone: [place]. Start: 05-01-2016 End: 05-01-2016 Patient encounter procedure Alanis BARNETT-C Work Phone: [facility] Start: 04-04-2015 End: 04-04-2015 Patient encounter procedure Alanis BARNETT-C Work Phone: [facility] Start: 03-11-2015 End: 03-11-2015 Manual pelvic examination Alanis BARNETT-C Work Phone: [facility]; [place]. Start: 03-11-2015 End: 03-11-2015 Patient encounter procedure Alanis BARNETT-C Work Phone: [place]. Start: 03-09-2015 End: 03-09-2015 Historical Summary Alanis BARNETT-C Work Phone: [facility] Start: 02-08-2014 End: 02-08-2014 Manual pelvic examination Alanis Batista PA-C Work Phone: [facility]; [place]. Start: 02-08-2014 End: 02-08-2014 Patient encounter procedure Alanis Batista PA-C Work Phone: [facility] Patient encounter procedure Alanis Batista PA-C Work Phone: [facility] Patient encounter status Juliet Collier Earline [place] [facility].; [facility] Patient encounter status Juliet Collier Earline [place] [facility]. Procedures Date Procedure Procedure Detail Performing Clinician Start: 03-01-2025 Esophagogastroduodenoscopy Alanis viera ANIBAL Work Phone: Start: 12-06-2024 Us soft tissue head & neck real time imge docm Jeyson Bustamante MD Work Phone: Start: 10-26-2024 Esophagogastroduodenoscopy Alanis Henry aylin BARNETT Work Phone: Start: 10-20-2024 Ultrasonography of thyroid and parathyroid Alanis Batista ANIBAL Work Phone: Start: 09-04-2024 US scan of thyroid Alanis Lester BARNETT Work Phone: Start: 08-31-2024 End: 09-06-2024 Us soft tissue head & neck real time imge docm Alanis Batista PA-C Work Phone: Comment on above: Please call pt to schedule appt. Start: 08-30-2024 End: 08-30-2024 Depression screening Alanis Batista PA-C Work Phone: Start: 08-30-2024 End: 08-30-2024 Scr dep neg, no plan reqd Alanis Pace er PA-C Work Phone: Start: 05-13-2023 EGD - PH Probe (Not Applicable) ANIBAL Isidra dave Lester BARNETT Work Phone: Start: 04-21-2023 US scan of thyroid ANIBAL Alanisgolden BARNETT Work Phone: Start: 06-23-2021 End: 06-23-2021 Thyroidectomy; Right Alanis Annalisa BARNETT-C Work Phone: Comment on above: and isthmusectomy Start: 05-12-2021 End: 05-20-2021 Us soft tissue head & neck real time imge docm Alanis Annalisa BARNETT-C Work Phone: Start: 05-12-2021 End: 05-12-2021 Depression screening Alanis Annalisa BARNETT-C Work Phone: Start: 05-12-2021 End: 05-12-2021 Microscopic examination of cervical Papanicolaou smear Juliet Patten LPN Comment on above: 02/17/2017 LSIL, 06/16/20174 ASCUS, 2020 HPV neg Start: 05-12-2021 End: 05-12-2021 Scr dep neg, no plan reqd Alanis Fang Sanjeev BARNETT-C Work Phone: Start: 06-15-2018 End: 06-15-2018 Flu [...] MD Work Phone: Start: 05-01-2016 End: 05-01-2016 uterus 14 wk transabdl 07/19 gestat Alta Zapata MD Work Phone: Start: 04-04-2015 End: 04-04-2015 Destruction benign lesions up to 14 Supriya D Prospect PA-C Work Phone: Start: 03-11-2015 End: 03-11-2015 Destruction benign lesions up to 14 Supriya D Prospect PA-C Work Phone: Start: 02-08-2014 End: 02-08-2014 Lab findings surveillance June Winkler Comment on above: 73 Start: 02-08-2014 End: 02-08-2014 Lipid panel June Lamas LPN Comment on above: chol -204 Start: 07-19-2001 End: 07-19-2001 wisdom teeth extraction Alanis Batista PA-C Work Phone: section Alanis knight PA-C Work Phone: section Juliet zavala POOLING OPERATOR H/O: section H/O: Frank Young RN H/O: section H/O: Noelle rooney Batista PA-C Work Phone: H/O: section H/O: Noelle Batista PA-C Work Phone: H/O: section H/O: Noelle rooney Batista PA-C Work Phone: Plan of Treatment Date Care Activity Detail Author Start: 09-18-2026 Urine microalbumin profile DTaP,Tdap,Td Vaccine (7 - Td or Tdap) [facility] Start: 07-03-2025 End: 07-03-2025 ambulatory 07/03/2025 9:40 AM EST [facility] [id number] [place] [phone] Bobbi De La Paz MD [id number] [place] [id number] month vv [facility] Comment on above: month vv Start: 03-29-2025 End: 03-29-2025 Follow-up encounter 03/29/2025 10:00 AM EDT [facility] [place] [id number] [place] [phone] [place] [address] [address] 6 week follow up [facility] Comment on above: 6 week follow up Start: 03-19-2025 Influenza vaccination [facility] Start: 03-01-2025 Patient discharge [facility] Start: 02-13-2025 End: 05-15-2025 Thyroglobulin and Thyrogobulin Ab panel - Serum or Plasma THYROGLOBULIN, SERUM WITH REFLEX TO IA OR LC-MS/MS Lab Routine Malignant neoplasm of thyroid gland (HCC) Expected: 02/13/2025 (Approximate), Expires: 05/15/2025 [facility] Comment on above: Expected: 02/13/2025 (Approximate), Expi res: 05/15/2025 Start: 02-13-2025 End: 05-15-2025 Thyrotropin [Units/volume] in Serum or Plasma THYROID STIMULATING HORMONE Lab Routine Malignant neoplasm of thyroid gland (HCC) Expected: 02/13/2025 (Approximate), Expires: 05/15/2025 [facility] Comment on above: Expected: 02/13/2025 (Approximate), Expi res: 05/15/2025 Start: 02-13-2025 End: 05-15-2025 Thyroxine (T4) free [Mass/volume] in Serum or Plasma T4 FREE/FREE THYROXINE Lab Routine Malignant neoplasm of thyroid gland (HCC) Expected: 02/13/2025 (Approximate), Expires: 05/15/2025 [facility] Work Phone: Comment on above: Expected: 02/13/2025 (Approximate), Expi res: 05/15/2025 Start: 01-29-2025 End: 01-29-2025 Admission to same day surgery center 01/29/2025 9:00 AM EDT [facility] Endocrine Surgery [address] [place] [address] David Winter MD [address] [place] [address] post op Endocrine Surgery Comment on above: post op Start: 01-11-2025 End: 01-11-2025 Admission to same day surgery center 01/11/2025 9:30 AM EDT - 01/11/2025 1:00 PM EDT Surgery [facility] [address] [place] [address] Jeyson Bustamante MD [address] [address] BIOPSY OR EXCISION LYMPH NODE(S) OPEN, DEEP CERVICAL [facility] Comment on above: BIOPSY OR EXCISION LYMPH NODE(S) OPEN, D EEP CERVICAL Start: 01-11-2025 End: 01-11-2025 Bx/exc lymph [...] physician 01/11/2025 9:30 AM EDT Hospital Encounter [facility] [address] [place], [place] [id number] Jeyson Bustamante MD [address] [address] Papillary carcinoma of thyroid (HCC) [C73] [facility] Comment on above: Papillary carcinoma of thyroid (HCC) [C7 3] Start: 01-11-2025 End: 01-11-2025 Admission to same day surgery center 01/11/2025 7:30 AM EDT - 01/11/2025 11:00 AM EDT Surgery [facility] [address] [place] [address] Jeyson Bustamante MD [address] [place] [id number] BIOPSY OR EXCISION LYMPH NODE(S) OPEN, DEEP CERVICAL [facility] Comment on above: BIOPSY OR EXCISION LYMPH NODE(S) OPEN, D EEP CERVICAL Start: 01-11-2025 End: 01-11-2025 Bx/exc lymph [...] physician 01/11/2025 7:30 AM EDT Hospital Encounter [facility] [address] [place] [address] Jeyson Bustamante MD [address] [place] [address] Papillary carcinoma of thyroid (HCC) [C73] [facility] Comment on above: Papillary carcinoma of thyroid (HCC) [C7 3] Start: 11-27-2024 End: 11-27-2024 Patient encounter procedure 11/27/2024 3:00 PM EDT Office Visit Endocrine Surgery [address] [place] [id number] Jeyson Bustamante MD [address] [place] [address] INTAKE PENDING-Pls schedule NEW thyroid with Dr. Smith on 11/22/2024 @ 10:30am, pt. aware. Francisco NEGRON Endocrine Surgery Comment on above: INTAKE PENDING-Pls schedule NEW thyroid with Dr. Smith on 11/22/2024 @ 10:30am, pt. aware. Francisco NEGRON Start: 10-26-2024 Patient discharge [facility] Start: 08-31-2024 Us soft tissue head & neck real time imge docm Thyroid Ultrasound (71435) Start: 31-Aug-2024 Intent Comments: Please call pt to schedule appt. [facility] Comment on above: Please call pt to schedule appt. Start: 08-30-2024 Blood count complete auto&auto difrntl wbc CBC, PLATELETS & AUT DIFF (F) (98217) Start: 30-Aug-2024 14:00-05:00 Request [facility]. Start: 08-30-2024 Assay of thyroid stimulating hormone tsh TSH (THYROID STIMULATING HORMONE) (65868) Start: 30-Aug-2024 13:55-05:00 Request [place] [employer]. Start: 08-30-2024 Assay of triiodothyronine t3 free T3 FREE (85815) Start: 30-Aug-2024 13:55-05:00 Request [place] [employer]. Start: 08-30-2024 Assay of free thyroxine THYROXINE (T4) FREE (98932) Start: 30-Aug-2024 13:55-05:00 Request [place] [employer]. Start: 08-30-2024 Patient encounter procedure Medical; PHYSICAL - awv [facility]. Start: 30-Aug-2024 13:10-05:00 VALARIE Batista Appointment Request [place]. Start: 08-16-2024 Nursing evaluation of patient and report Medical; Nurse visit - DOROTHEA armstrongp [place]. Start: 16-Aug-2024 09:00-05:00 ROOM, PROCEDURE (DRAW) [facility]ment [facility] Start: 03-19-2024 Covid-19 Vaccine ( season) Covid-19 Vaccine ( season) [facility] Start: 03-19-2024 Covid-19 Vaccine ( season) Covid-19 Vaccine () [facility] Start: 05-13-2023 Patient discharge [facility] Start: 2012 HPV Vaccine (1 - 3-dose SCDM series) HPV Vaccine (1 - 3-dose SCDM series) [facility] Start: 2006 Screening for malignant neoplasm of cervix Cervical Cancer Screening [facility] Start: 2004 Hepatitis B Vaccine (1 of 3 - 19+ 3-dose series) Hepatitis B Vaccine (1 of 3 - 19+ 3-dose series) [facility] Start: 2004 Urine microalbumin profile DTaP,Tdap,Td Vaccine (1 - Tdap) [facility] Start: 2003 Anxiety Screening Anxiety Screening [facility] Start: 2003 Depression Screening Depression Screening [facility] Start: 2003 Hepatitis C screening Hepatitis C Screening [facility] Start: 2003 HIV screening HIV Screening [facility] Patient referral [facility] Work Phone: Immunizations Immunization Date Immunization Notes Care Provider Salima cortes 04-18-2021 influenza, injectabl e, quadrivalent, contains preservative Alanis Batista PA-C Work Phone: [facility] 10-21-2020 COVID-Janessa (AD26 .5 ML) Alanis Batista PA-C Work Phone: [place]. 06-15-2018 influenza, injectabl e, quadrivalent, contains preservative Alanis Batista PA-C Work Phone: [facility]; [facility] Comment on above: Site: Right DeltoidV IS Given: * Influenza - Inactivated (02/22/15) 06-15-2018 influenza virus vacc ine, unspecified formulation Jeyson Bustamante MD Work Phone: [facility] 05-19-2017 influenza, injectabl e, quadrivalent, contains preservative Alanis Batista PA-C Work Phone: [facility]; [facility] Comment on above: given at work 09-18-2016 tetanus toxoid, redu dayna diphtheria toxoid, and acellular pertussis vaccine, adsorbed Alanis Batista PA-C Work Phone: [facility]; [facility] Comment on above: Site: Deltoid (Left) VIS Given: * Tdap (Tetanus, Diphtheria, Pertussis) (09/11/14) 06-10-2016 unknown vaccine or immune globulin Alanis Batista PA-C Work Phone: [facility]; [facility] 06-10-2016 influenza, injectabl e, quadrivalent, contains preservative Alanis Batista PA-C Work Phone: [facility]; [place]. Comment on above: Site: Deltoid (Left) VIS Given: * Influenza - Inactivated (02/22/15) 08-01-2004 hepatitis B vaccine, adult dosage Alanis Batista PA-C Work Phone: [facility]; [facility] 03-10-2004 hepatitis B vaccine, adult dosage Alanis Batista PA-C Work Phone: [facility]; [facility] 02-08-2004 hepatitis B vaccine, adult dosage Alanis Batista PA-C Work Phone: [facility]; [facility] 02-08-2004 meningococcal oligosaccharide (groups A, C, Y and W-135) diphtheria toxoid conjugate vaccine (MCV4O) Alanis Batista PA-C Work Phone: [facility]; [facility] 02-08-2004 TD(adult) unspecifie d formulation Alanis Batista PA-C [facility] Phone: [facility] 12-05-1997 measles, mumps and rubella virus vaccine Alanis Batista PA-C Work Phone: [facility] 02-09-1991 diphtheria, tetanus toxoids and acellular pertussis vaccine Alanis Batista PA-C Work Phone: [facility].; [facility] 01-28-1987 diphtheria, tetanus toxoids and pertussis vaccine Alanis Batista PA-C Work Phone: [facility].; [facility] 10-30-1986 measles, mumps and rubella virus vaccine Alanis Batista PA-C Work Phone: [facility].; [facility] 1985 diphtheria, tetanus toxoids and pertussis vaccine Alanis Batista PA-C Work Phone: [facility] 1985 trivalent poliovirus vaccine, live, oral Alanis Batista PA-C Work Phone: [facility] 1985 diphtheria, tetanus toxoids and pertussis vaccine Alanis Batista PA-C Work Phone: [facility] 1985 trivalent poliovirus vaccine, live, oral Alanis Batista PA-C Work Phone: [facility].; [facility] 1985 diphtheria, tetanus toxoids and pertussis vaccine Alanis Batista PA-C Work Phone: [facility] 1985 trivalent poliovirus vaccine, live, oral Alanis Batista PA-C Work Phone: [facility], [facility] Payers Date Payer Category Payer Self-pay [id number] 2016 [employer] BLUE CARD PPO OOS [id number] 2016 Unknown [id number] 1985 Unknown [id number] .[id number] 1985 Unknown [id number] .651 1985 Unknown [id number] [id number] .651 1985 Unknown [id number] .651 Unknown [facility] PACKAGE PLAN [id number] Unknown ANTHEM Unknown [id number] Unknown [id number] .462 Unknown [id number] .462 Unknown [id number] .462 Unknown [id number] .462 Unknown [id number] .462 Unknown [id number] .462 Unknown [id number] .462 Unknown [id number] .462 Unknown [id number] .462 Social History Date Type Detail Facility Start: 05-05-2023 Tobacco smoking status WVIS Unknown if ever smoked [facility] Start: 1985 Sex Assigned At Female [facility] Alcohol Use: Alcohol Use: ; Occasional alcohol use. [facility] [place]. Start: 12-06-2024 End: 01-02-2025 Caffeine Use Caffeine Use [facility] Primary Contro l Method: Primary Control Method: ; Partner had vasectomy. [facility]. Tobacco Use: Tobacco Use: ; N ever smoker. [facility] Occasional alcoh ol use [facility] [place]. Work Phone: Start: 12-06-2023 End: 12-06-2024 Never smoked tobacco [facility] Partner had vasectomy [facility] [place] Work Phone: Start: 10-12-2024 End: 10-26-2024 Sex Female (finding) [facility] Start: 1985 Sex assigned at Not on file [facility] Start: 12-06-2024 End: 01-02-2025 Gender identity Not on file [facility] Start: 12-06-2024 Tobacco use and exposure Smokeless tobacco non-user [facility] Start: 12-06-2024 End: 01-02-2025 Alcoholic beverage intake Current drinker of alcohol (finding) [facility] Start: 10-25-2024 National Score (1-100), lower number is lower risk 80 [facility] NEGATED: Highlighted row [facility] NEGATED: Highlighted row Not [facility] NEGATED: Highlighted rowStart: NINF History of tobacco use Passive smoker [facility] Medical Equipment Procedure Code Equipment [...] FDA Start: 06-23-2021 Gastrointestinal telemetric monitoring system ([id number] FDA Start: 05-13-2023 Goals Date Patient Goal Desired Activity /State Functional Status Date Assessment Result Facility 01-12-2025 Are you deaf, or do you have serious difficulty hearing No 01/12/2025 8:20 AM Teresa Sanches RN No [facility] 01-12-2025 Are you blind, or do you have serious difficulty seeing, even when wearing glasses No 01/12/2025 8:20 AM Teresa Sanches RN No [facility] 01-12-2025 Do you have serious difficulty walking or climbing stairs No 01/12/2025 8:20 AM Teresa Sanches RN [facility] 01-12-2025 Do you have difficul ty dressing or bathing No 01/12/2025 8:20 AM Teresa Sanches RN No [facility] 01-12-2025 Because of a physica l, mental, or emotional condition, do you have difficulty doing errands alone such as visiting a physician's office or shopping No 01/12/2025 8:20 AM Teresa Sanches RN No [facility] Mental Status Date Assessment Result Facility 03-01-2025 Cognitive function Voice/Name [facility] Work Phone: 01-12-2025 Because of a physica l, mental, or emotional condition, do you have serious difficulty concentrating, remembering, or making decisions No 01/12/2025 8:20 AM Teresa Sanches RN No [facility] 10-26-2024 Cognitive function Voice/Name [facility] Work Phone: 05-13-2023 Cognitive function Level Of Cons ciousness Appropriate;Drowsy [facility] Work Phone: 05-13-2023 Cognitive function Voice/Name [facility] Work Phone: Clinical Notes 05-13-2023 to 03-29-2025 Patient InstructionsBobbi De La Paz MD - 03/29/2025 10:29 AM EDTTelephone Encounter - Joya Escobar - 02/14/2025 12:09 PM EDTTelephone Encounter - Johan Velázquez - 02/14/2025 10:58 AM EDT Note Date & Type Note Facility 03-29-2025 Instructions Bobbi De La Paz MD - 03/29/2025 11:10 AM EDT Assessment / Plan Assessment: 1) Thyroid CA ,papillary, with multiple central nodes recently resected by Dr. Bustamante. TG near lower limit of detection after surgery, which is good. Will need MI, she lives in [place], but she is quite willing to just come to [place] to get this done. 2) Current treatment for eosinophilic esophagitis, on budesonide oral liquid. I will delay treating with MI, since it is not an urgent issue, plan to discuss treatment in 3 months at a virtual visit. 3) Surgical hypothyroidism, thyroid hormone level reasonable. Will have her stay on 112 mcg levothyroxine daily. Treatment / Plan: 1) continue on 112 mcg levothyroxine daily. 2) return to ut in 3 months by virtual visit, no labs needed prior to the visit. Bobbi De La Paz MD Data Latest Ref Rng 01/12/2025 Calcium 8.5 - 10.2 mg/dL 8.8 PTH, Intact 15 - 65 pg/mL 31 Latest Ref Rng 12/06/2024 03/01/2025 Thyroglobulin Ab, Serum <4.0 IU/mL 3.4 2.4 Thyroglobulin, Serum 1.6 - 50.0 ng/mL 27.6 0.2 (L) TSH 0.270 - 4.200 mIU/L 2.250 0.315 Free T4 0.9 - 1.7 ng/dL 1.8 (H) documented in this encounter [facility] 03-29-2025 Note HNO ID: [id number] Author: BOBBI DE LA PAZ MD Service: ? Author Type: Physician Type: Progress Notes Filed: 03/29/2025 11:10 Note Text: Virtual Visit utilizing both audio and video components MyChart-[employer] I have communicated my name and active licensure. The patient's identity and physical location were verified at the time of this visit. Either the patient or their legal business process representative has been informed of the risks and benefits of -- and alternatives to -- treatment through a remote evaluation and consents to proceed with the evaluation remotely. Patient location: [facility] Assessment / Plan Assessment: 1) Thyroid CA ,papillary, with multiple central nodes recently resected by Dr. Bustamante. TG near lower limit of detection after surgery, which is good. Will need MI, she lives in [place], but she is quite willing to just come to [place] to get this done. 2) Current treatment for eosinophilic esophagitis, on budesonide oral liquid. I will delay treating with MI, since it is not an urgent issue, plan to discuss treatment in 3 months at a virtual visit. 3) Surgical hypothyroidism, thyroid hormone level reasonable. Will have her stay on 112 mcg levothyroxine daily. Treatment / Plan: 1) continue on 112 mcg levothyroxine daily. 2) return to ut in 3 months by virtual visit, no labs needed prior to the visit. Bobbi De La Paz MD Data Latest Ref Rng 01/12/2025 Calcium 8.5 - 10.2 mg/dL 8.8 PTH, Intact 15 - 65 pg/mL 31 Latest Ref Rng 12/06/2024 03/01/2025 Thyroglobulin Ab, Serum <4.0 IU/mL 3.4 2.4 Thyroglobulin, Serum 1.6 - 50.0 ng/mL 27.6 0.2 (L) TSH 0.270 - 4.200 mIU/L 2.250 0.315 Free T4 0.9 - 1.7 ng/dL 1.8 (H) History Surgical hypothyroidism : levothyroxine 112 mcg daily takes when she wakes up, mineral supplements are 4 hours after levothyroxine didn't know about catching up for missed doses. Context: 1) eosinophilic esophagitis, started back a couple weeks ago on budesonide liquid x 3 months. 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 [facility] 03-29-2025 History of Presen t illness Narrative Virtual Visit utilizing both audio and video components [employer] I have communicated my name and active licensure. The patient's identity and physical location were verified at the time of this visit. Either the patient or their legal business process representative has been informed of the risks and benefits of -- and alternatives to -- treatment through a remote evaluation and consents to proceed with the evaluation remotely. Patient location: [facility] Assessment / Plan Assessment: 1) Thyroid CA ,papillary, with multiple central nodes recently resected by Dr. Bustamante. TG near lower limit of detection after surgery, which is good. Will need MI, she lives in [place], but she is quite willing to just come to [place] to get this done. 2) Current treatment for eosinophilic esophagitis, on budesonide oral liquid. I will delay treating with MI, since it is not an urgent issue, plan to discuss treatment in 3 months at a virtual visit. 3) Surgical hypothyroidism, thyroid hormone level reasonable. Will have her stay on 112 mcg levothyroxine daily. Treatment / Plan: 1) continue on 112 mcg levothyroxine daily. 2) return to ut in 3 months by virtual visit, no labs needed prior to the visit. Bobbi De La Paz MD Data Latest Ref Rng 01/12/2025 Calcium 8.5 - 10.2 mg/dL 8.8 PTH, Intact 15 - 65 pg/mL 31 Latest Ref Rng 12/06/2024 03/01/2025 Thyroglobulin Ab, Serum <4.0 IU/mL 3.4 2.4 Thyroglobulin, Serum 1.6 - 50.0 ng/mL 27.6 0.2 (L) TSH 0.270 - 4.200 mIU/L 2.250 0.315 Free T4 0.9 - 1.7 ng/dL 1.8 (H) History Surgical hypothyroidism : levothyroxine 112 mcg daily takes when she wakes up, mineral supplements are 4 hours after levothyroxine didn't know about catching up for missed doses. Context: 1) eosinophilic esophagitis, started back a couple weeks ago on budesonide liquid x 3 months. 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 90 tablet 3 calcium carbonate (TUMS) 500 mg chew Take 1 tablet by mouth every hour as needed (mouth or hand numbness or tingling). nihbdji-ntvbhlpwb-tegyiei D3 500 mg-5 mcg (200 unit) per tablet Take 1 tablet by mouth three times a day. hydrOXYzine HCl (ATARAX) 25 mg tablet Take 25 mg by mouth once daily. BUDESONIDE ORAL Take by mouth. Pt uses Liquid 2ml in Am and 2ml in pm No current facility-administered medications for this visit. ALLERGIES Allergen Reactions Cefaclor Rash documented in this encounter [facility] 03-01-2025 Consult note [facility] 03-01-2025 Procedure note [facility] 03-01-2025 Procedure note [facility] 03-01-2025 Consult note [facility] 03-01-2025 History and physi richard note [facility] 03-01-2025 Note [facility] Medical Records Department [address] [place] [address] History Physical Exam 03/01/25 0741 MR#: [id number] Acct: [id number] Name: SIMA KEEN Rep #: [id number] : 1985 39 From: David Cano MD PCP: ANIBAL Workman Status:[facility] Location: [place] [address] History and Physical Date of Admission: 03/01/25 Date of Service: 10/04/24 MR#: [id number] Acct: [id number] Name: SIMA KEEN Rep #: [id number] : 1985 Provider: Dr. David Cano MD Age/Sex: 39/F Location: [facility] Status: Signed Intake Vital Signs 12/08/2408:44 10/04/2512:16 Height 5 ft 7 in 5 ft 7 in Weight: 159 lb BMI 24.9 BP 126/86 H Blood Pressure Location Rt brachial Position Sitting Respiration 17 Pulse 90 Pulse Source Monitor Pulse Oximetry (%) 99 Oxygen Delivery Method room air Intake Visit Reasons: THYROID NODULE Chief Complaint: thyroid nodule Is patient in pain?: No Allergies cefaclor (From Ceclor) Allergy (Verified 10/04/24 13:17) Rash Medications ???Medication [...] No behavioral changes, No burning sensations, No co (more content not included)... [facility] 03-01-2025 Consult note [facility] 02-14-2025 Telephone encounter Note Pt. Reports concern [...] to clear throat at times. Please advise. [facility] 02-14-2025 Miscellaneous Notes Pt. Reports [...] at times. Please advise. February 14, 2025 [id number] Patient Name: Sima Keen Contact Information: [phone] (home) [phone] (cell) Reason For Call: Patient is calling because she had surgery with Dr. Bustamante on 01/11 and is having concerns with her voice can you please call patient back? Physician: Jeyson Bustamante MD documented in this encounter [facility] 02-14-2025 Telephone encounter Note February 14, 2025 [id number] Patient Name: Sima Keen Contact Information: [phone] (home) [phone] (cell) Reason For Call: Patient is calling because she had surgery with Dr. Bustamante on 01/11 and is having concerns with her voice can you please call patient back? Physician: Jeyson Bustamante MD [facility] 02-14-2025 Telephone encounter Note Images from the original note were not included. Bobbi De La Paz MD P [facility] Clerical Pool please call this patient and help her set up a virtual visit for 6 weeks 1st attempt sent Elyse Perez [facility] 02-14-2025 Miscellaneous Notes Images from the original note were not included. Bobbi De La Paz MD [facility] Clerical Pool please call this patient and help her set up a virtual visit for 6 weeks 1st attempt sent Elyse Perez documented in this encounter [facility] 02-13-2025 Instructions Bobbi De La Paz MD - 02/13/2025 4:03 PM EDT Assessment / Plan Assessment: 1) Thyroid CA ,papillary, with multiple central nodes recently resected by Dr. Bustamante. Will need MI, she lives in [place], I will organize seeing where this can be done, presumably [facility] or possibly [facility]. I'll get labs done now, since she is 1 month postop. Treatment / Plan: 1) continue on 112 mcg levothyroxine daily. 2) get labs done soon, I'll send comment via Zinc software about the labs 3) think about when [...] 4.200 mIU/L 2.250 documented in this encounter [facility] 02-13-2025 History of Presen t [...] visit. Either the patient or their legal business process representative has been informed of the risks and benefits of -- and alternatives to -- treatment through a remote evaluation and consents to proceed with the evaluation remotely. Patient location: [place], [place]. I spent a total of 60 minutes on the date of the service which included preparing to see the patient, qqgu-og-mevw patient care, completing clinical documentation, counseling and educating the patient/family/caregiver, and ordering medications, tests, or procedures. Assessment / Plan Assessment: 1) Thyroid CA ,papillary, with multiple central nodes recently resected by Dr. Bustamante. Will need MI, she lives in [place], I will organize seeing where this can be done, presumably [facility] or possibly [facility]. I'll get labs done now, since she is 1 month postop. Treatment / Plan: 1) continue on 112 mcg levothyroxine daily. 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 ykibzyr-pwrrhzlrx-ckyvaeq D3 500 mg-5 mcg (200 unit) per tablet Take 1 tablet by mouth three times a day. hydrOXYzine HCl (ATARAX) 25 mg tablet Take 25 mg by mouth once daily. BUDESONIDE ORAL Take by mouth. Pt uses Liquid 2ml in Am and 2ml in pm No current facility-administered medications for this visit. ALLERGIES Allergen Reactions Cefaclor Rash documented in this encounter [facility] 02-13-2025 Note HNO ID: [id number] Author: BOBBI DE LA PAZ MD Service: [...] visit. Either the patient or their legal business process representative has been informed of the risks and benefits of -- and alternatives to -- treatment through a remote evaluation and consents to proceed with the evaluation remotely. Patient location: [place], [place]. I spent a total of 60 minutes on the date of the service which included preparing to see the patient, abxm-ay-jgjw patient care, completing clinical documentation, counseling and educating the patient/family/caregiver, and ordering medications, tests, or procedures. Assessment / Plan Assessment: 1) Thyroid CA ,papillary, with multiple central nodes recently resected by Dr. Bustamante. Will need MI, she lives in [place], I will organize seeing where this can be done, presumably [facility] or possibly [facility]. I'll get labs done now, since she is 1 month postop. Treatment / Plan: 1) continue on 112 mcg levothyroxine daily. 2) get labs done soon, I'll send comment via Zinc software about the labs 3) think about when [...] 1) hx esophagitis 2) in office of [employer], [employer] bottles for medications Thyroid CA History Surgery (06/23/2021): right lobectomy, at [facility], [facility] (01/11/2025): [facility], [facility] ([facility]21): right lobe invasive papillary [...] and vomiting) 01/03/20 (more content not included)... [facility] 01-29-2025 Note HNO ID: [id number] Author: JAYLA CARR MD Service: ? Author [...] Clinical Associate / Fellow Endocrine Surgery [facility] 01-29-2025 History of Presen t illness [...] Clinical Associate / Fellow Endocrine Surgery [facility] documented in this encounter [facility] 01-17-2025 Miscellaneous Notes Done- e-mailed return to work letter via my chart, ptLeanna NEGRON documented in this encounter [facility] 01-17-2025 Telephone encounter Note Done- e-mailed return to work letter via my chart, ptLeanna NEGRON [facility] 01-17-2025 Telephone encounter Note Summary: Return to work Shanna Abarca, Patient called and is wondering if she can get a return to work form can you help with this please? Call back [phone] [facility] 01-17-2025 Miscellaneous Notes Summary: Return to work Shanna Abarca, Patient called and is wondering if she can get a return to work form can you help with this please? Call back [phone] documented in this encounter [facility] 01-12-2025 Note HNO ID: [id number] Author: DAVID WINTER MD Service: Endocrine Surgery [...] week virtual post-op visit David Winter MD [phone] Clinical Associate [facility] [place], Department of Endocrine Surgery [facility] 01-11-2025 Note HNO ID: [id number] Author: DAVID WINTER MD Service: Endocrine Surgery [...] in the surgical floor David Winter MD [phone] Clinical Associate [facility] [place], Department of Endocrine Surgery [facility] 01-11-2025 Note HNO ID: [id number] Author: CHARISMA LARSEN AA Service: Anesthesiology Author Type: Photogrammetric Tech Type: Anesthesia Procedure Notes Filed: 01/11/2025 12:59 [...] Successful intubation technique: video laryngoscopy Devices used: UGE Endotracheal tube insertion site: oral Blade: Yazan [...] January 11, 2025 TIME: 12:58 PM CSN: [id number] [facility] 01-02-2025 Dina Miguel APRN.NEWSCAST DIRECTOR - 01/02/2025 10:19 AM EDT Images from the original note were not included. [facility] PATIENT PREOPERATIVE INSTRUCTIONS Jeyson Bustamante MD has scheduled you for your procedure at this surgery center: [facility]: [phone] -- [address] [place] [address]. Please read below carefully for your personalized [...] office. If you are currently using a atew-cgn-gdqs injectable or oral medication for diabetes or [...] Procedures: - YOU MUST HAVE A RESPONSIBLE MANAGER OF PROCUREMENT TAKE YOU HOME. A DRAWER UPFITTER OR APPLIED MARINE PHYSICS PROFESSOR CANNOT BE MADE A RESPONSIBLE MANAGER OF PROCUREMENT. - We recommend that a responsible person [...] Advance Directive, please fax a copy to [phone] or email to for it to be [...] and scanned into your chart that day. Dian Najera APRN.STEPHANY documented in this encounter [facility] 01-02-2025 History and physical note [...] visit. Either the patient or their legal business process representative has been informed of the risks [...] large neck Non-male patient STOP-Bang Score: 1 [id number] Score: Age: <65 Sex: female CHF history: No Hypertension history: No Stroke/TIA/thromboembolism history: No Vascular disease history: No Diabetes history: No [id number] Score: 1 ARISCAT Score: Age: <=50 Preoperative [...] since 03/19/2024 10/21/2020 Imm Admin: COVID-19 vaccine (JANESSA) CHIEF COMPLAINT: Pre-Op Visit HPI: 39 year [...] fever. Neurological: No history of TIA's, stroke, [employer] tumor, impaired sensorium, hemiplegia, paraplegia or quadraplegia. [...] requiring medication, no history of angina, CHF, KS, cardiac surgery or stents. Denies rest pain, gangrene or revascularization/amputation for PVD. No history of cardiovascular symptoms or problems. Negative for: abdominal aortic aneurysm, AICD/PPM, angina, anticoagulation therapy, arrhythmia, atrial fibrillation, CAD, chest pain, CHF, congenital heart defect, DVT/PE, hyperlipidemia, hypertension, recent KS and murmur/valvular heart disease. GI: Negative for: abdominal pain, dysphagia, diverticulitis, GERD, GI bleed <30 days, heartburn, hepatitis, irritable bowel syndrome, inflammatory bowel disease, liver disease, nausea, pancreatitis, vomiting and ETOH >2 drinks/day. : Negative for: on dialysis, dysuria, flank pain, frequent urination, nephrolithiasis and urgency. DUMP WORKER: Negative for abnormal vaginal bleeding, abnormal [...] Procedure Laterality Date SECTION HX EGD W/O [facility] SPEC VARICIES INJ THYROID LOBECTOMY,UNILAT Right History [...] or any previous visit (from the past 54309 hours). Instructions Given to Patient: Instructions located in the after visit summary. Patient given verbal and written preop instructions and voices comprehension and compliance. SIGNATURE: Dina Najera APRN.CNP PATIENT NAME: Sima Keen DATE: January 02, 2025 TIME: 10:23 AM PAGER/CONTACT #: [facility] 01-02-2025 History and physical note [...] visit. Either the patient or their legal business process representative has been informed of the risks [...] large neck Non-male patient STOP-Bang Score: 1 [id number] Score: Age: <65 Sex: female CHF history: No Hypertension history: No Stroke/TIA/thromboembolism history: No Vascular disease history: No Diabetes history: No [id number] Score: 1 ARISCAT Score: Age: <=50 Preoperative [...] since 03/19/2024 10/21/2020 Imm Admin: COVID-19 vaccine (JANESSA) CHIEF COMPLAINT: Pre-Op Visit HPI: 39 year [...] fever. Neurological: No history of TIA's, stroke, [employer] tumor, impaired sensorium, hemiplegia, paraplegia or quadraplegia. [...] requiring medication, no history of angina, CHF, KS, cardiac surgery or stents. Denies rest pain, gangrene or revascularization/amputation for PVD. No history of cardiovascular symptoms or problems. Negative for: abdominal aortic aneurysm, AICD/PPM, angina, anticoagulation therapy, arrhythmia, atrial fibrillation, CAD, chest pain, CHF, congenital heart defect, DVT/PE, hyperlipidemia, hypertension, recent KS and murmur/valvular heart disease. GI: Negative for: abdominal pain, dysphagia, diverticulitis, GERD, GI bleed <30 days, heartburn, hepatitis, irritable bowel syndrome, inflammatory bowel disease, liver disease, nausea, pancreatitis, vomiting and ETOH >2 drinks/day. : Negative for: on dialysis, dysuria, flank pain, frequent urination, nephrolithiasis and urgency. DUMP WORKER: Negative for abnormal vaginal bleeding, abnormal [...] or any previous visit (from the past 08770 hours). Instructions Given to Patient: Instructions located in the after visit summary. Patient given verbal and written preop instructions and voices comprehension and compliance. SIGNATURE: Dina Najera APRN.CNP PATIENT NAME: Sima Keen DATE: January 02, 2025 TIME: 10:23 AM PAGER/CONTACT #: documented in this encounter [facility] 12-06-2024 Note HNO ID: [id number] Author: JEYSON BUSTAMANTE MD Service: ? Author [...] left in place. 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 Those slides have been reviewed here at the [facility] and feel that some of the [...] have been reviewed viewed here at the [facility] and agree with the interpretation [...] have additional questions. Sincerely, Jeyson Bustamante MD [facility] 11-22-2024 Telephone encounter Note 11/22/2024 INTAKE PENDING(SPOKE WITH PT.)-PER PT. SPOKE WITH FOSTER SEVERAL TIMES AND EVERYTHING SHOULD BE IN HER CHART. 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 PATIENT PHYSICIAN INFORMATION Referring Doctor: Dr.Michael Cano Address: Phone: Portrait Painter: Dr.Michael Cano Address: Phone: PCP: To use this Smartlink, specify the provider ID whose address you want to display, e.g., .PROVADDR[1 (where 1 is the provider ID). PAST TREATMENT Office notes: NONE AVAILABLE Medications: NONE THAT APPLY Pre-Visit Testing STUDY/TEST DATE ORDERED/REQUESTED DATE RECEIVED/COMPLETED ENTIRE PANEL TSH Per pt. Done 08/2024 FREE T4 FREE T3 Imaging Reports: SEE [employer] CD of Images: SEE [employer] FNA: YES 2020 FNA Slides: Has the patient ever had thyroid or parathyroid surgery before: YES PARTIAL THYROIDECTOMY Operative Reports: NONE AVAILABLE Pathology Reports: NONE AVAILABLE [facility] 11-22-2024 Miscellaneous Notes 11/22/2024 INTAKE PENDING(SPOKE WITH PT.)-PER PT. SPOKE WITH FOSTER SEVERAL TIMES AND EVERYTHING SHOULD BE IN HER CHART. 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 PATIENT PHYSICIAN INFORMATION Referring Doctor: Dr.Michael Cano Address: Phone: Portrait Painter: Dr.Michael Cano Address: Phone: PCP: To use [...] Reports: NONE AVAILABLE documented in this encounter [facility] 10-26-2024 Consult note [facility] 10-26-2024 Consult note [facility] 10-26-2024 Procedure note [facility] 10-26-2024 Procedure note [facility] 10-26-2024 History and physi richard note [facility] 10-26-2024 Note [facility] Medical Records Department [address] [place] [id number] History Physical Exam 10/26/24 0931 MR#: [id number] Acct: [id number] Name: SIMA KEEN Rep #: [id number] : 1985 39 From: David Cano MD PCP: ANIBAL Workman Status:[facility] Location: [place] [address]- History and Physical Date of Admission: 10/26/24 MR#: [id number] Acct: [id number] Name: SIMA KEENE Rep #: [id number] : 1985 Provider: Dr. David Cano MD Age/Sex: 38/F Location: [facility] Status: Signed Intake Vital Signs 05/13/2309:50 09/02/2407:13 Height 5 ft 7 in 5 ft 7 in BP 102/69 Blood Pressure Location Rt brachial Position Sitting Respiration 17 Pulse 88 Pulse Source Monitor Temp 97.4 F L Temp Source Temporal Pulse Oximetry (%) 99 Oxygen Delivery Method room air Intake Visit Reasons: 1 yr fu Chief Complaint: F/u medication Teenage Program Director Required: No Is patient in pain?: No [...] other visual dist (more content not included)... [facility] 10-26-2024 Consult note [facility] 10-26-2024 Telephone encounter Note Indexed referral for Dr. Bustamante for thyroid nodule. Please reach out to patient to schedule. [facility] 10-26-2024 Miscellaneous Notes Indexed referral for Dr. Bustamante for thyroid nodule. Please reach out to patient to schedule. documented in this encounter [facility] 10-21-2024 Radiology Diagnostic study note [facility] Imaging Services [address] [place] [address] [id number] Head/Neck Soft Tissue MR#: [id number] Acct: [id number] Name: SIMA KEEN Rep #: [id number] : 1985 F 39 From: Pet er Jet WALKER PCP: ANIBAL Workman Status: REG CLI Study:Head/Neck Soft Tissue Date of Exam: 10/20/24 Exam# [id number] Ordering Dr: Toyin Cano MD EXAM: Ultrasound head/neck soft tissue CLINICAL HISTORY: Malignant neoplasm of thyroid status post right thyroid lobectomy. [facility]. COMPARISON: Ultrasound thyroid of 09/04/2024. [...] measurements and location given above. Reading Location: [facility] CC: Dr. David Cano MD; ANIBAL Workman ~ Mental Tester: Signed [facility] 10-04-2024 Evaluation note Diagnosis Onset Date Resolution Thyroid nodule acute September 1:01pm [facility] Work Phone: 1(940) 543-515710-26-2023 History and physical note Author David Cano [facility] May 13, 2023 10:23am Note Date/Time May 13, 2023 1 0:23am [facility] Medical Records Department [address] [place] [address] History & Physical Exam 05/13/23 1020 MR#: [id number] Acct: [id number] Name: SIMA KEEN Rep #:[id number] : 1985 38 From: David Anne PCP: ANIBAL Workman Status:[facility] Location: [place] [address] HPI - General HPI Narrative Patient is [...] of fullness in her throat with swallowing. [facility] Medical History (Updated 05/13/23 @ 10:21 by [...] Reaction Status Date / [facility] Allergy Rash Verified 05/13/23 09:47 Family History [...] Charges/Coding Visit Charges Office Visits / Consults: [id number] OV L2 Est 05/13/23 1023 <Electronically signed by David Cano MD> Cosigner Signature (if applicable): CC: Dr. David Cano MD; ANIBAL Workman~ Signed [facility] Work Phone: [phone] 792-962610-26-2023 Procedure [facility] 05-13-2023 [facility] Note Date/Time October 26, 2024 9:[address] [facility] Medical Records Department [address] [place] [address] Pre-Anesthesia Evaluation 10/26/24 0917 MR#: [id number] Acct: [id number] Name: SIMA KEEN Rep #:[id number] : 1985 39 From: Elliott Reynaga MD PCP: ANIBAL Workman Status:REG [facility] Y Race: [facility] Location: [place] [address] ASA Classification* ASA Classification ASA Classification: 2 [...] Procedure(s): Esophagogastroduodenoscopy. 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 class b: Anesthesia History - machinist class b Hx Hospitalization No 10/23/24 08:58 Any Problems [...] take am of surgery PONV PONV - machinist class b: PONV - machinist class b Female Yes 10/23/24 08:58 HX of Motion [...] 10/26/24 08:53 Respiratory Assessment Respiratory Assessment - machinist class b: Respiratory Tract Infection Hx - machinist class b Hx Respiratory Tract Infection No 10/23/24 08:58 STOP Sleep Apnea STOP Sleep Apnea - machinist class b: STOP Sleep Apnea - machinist class b Hx Hypertension No 10/23/24 08:58 Hx Sleep [...] Tobacco Use History Tobacco Use History - machinist class b: Tobacco Use History - machinist class b Tobacco Use Smoking Status Never smoker 10/23/24 08:58 Hx Tobacco Use No 10/23/24 08:58 Years Smoking Packs Smoked per Day Smoking Cessation Date was within the last 15 years Hx Smoking Cessation Date Hx Smoking Cessation Counseling Hematologic Medial History Hematologic Hx - machinist class b: Hematologic Medical Hx - profile grinder technician Hx of Blood Transfusion No 10/23/24 08:58 [...] confused, unrespo /Reproduction History /Reproductive History - machinist class b: /Reproductive Hx- machinist class b Hx Now No 10/23/24 08:58 Gestational Age (in weeks): EDC: Hx Hx Para Hx Section SAB No 10/23/24 08:58 [facility] Medical History Thyroid cancer Wears contact lenses [...] Reaction Status Date / Time cefaclor (From [facility]) Allergy Rash Verified 10/26/24 08:50 Family History [...] MD Cosigner Signature: Date CC: ~ Signed [facility] Work Phone: Consult note Author ANDERSON Gomez [facility] Note Date/Time October 26, 2024 10: 30am [facility] Medical Records Department [address] [place] [address] Anesthesia Postop Eval I 10/26/24 1029 MR#: [id number] Acct: [id number] Name: SIMA KEEN Rep #:[id number] : 1985 39 From: Vince Gomez PCP: ANIBAL Workman Status:REG SDC Y Race: [facility] Location: [place] [address] Anesthesia: Postop Eval I Current Vital Signs [...] by Vince Gomez > Date _ Vince Naranjo Signature: Date CC: ~ Signed [facility] Work Phone: Consult note Author Elliott Reynaga [facility] Note Date/Time October 26, 2024 10: 52am [facility] Medical Records Department [address] [place] [address] Anesthesia Postop Eval II 10/26/24 1051 MR#: [id number] Acct: [id number] Name: SIMA KEEN Rep #:[id number] : 1985 39 From: Elliott Reynaga MD PCP: ANIBAL Workman Status:REG SDC Y Race: UTD Location: [place] [address] Anesthesia Postop Eval I Sum Postop Eval [...] MD Cosigner Signature: Date CC: ~ Signed [facility] Work Phone: Consult note Author Elliott Reynaga [facility] Note Date/Time March 01, 2025 7: 22am [facility] Medical Records Department [address] [place] [address] Pre-Anesthesia Evaluation 03/01/25 0717 MR#: [id number] Acct: [id number] Name: SIMA KEEN Rep #:[id number] : 1985 39 From: Elliott Reynaga MD PCP: ANIBAL Workman Status:REG SDC Y Race: C Location: [place] [address] ASA Classification* ASA Classification ASA Classification: 2 [...] Patient and Chart Anesthesia Focused Assessment* Temperature: 97.6 F Pulse Rate: 66 Blood Pressure: 110/82 Respiratory Rate: 16 Pulse Ox: 100 Oxygen Delivery Method: Room Air Airway Assessment Mouth opens: >3 cm Mallampati Score: I Teeth Condition: Loose (Tooth #10 is slightly loose.) Neck Range of motion (ROM): Full ROM Labs Anesthesia Preop lab: CBC CHEMISTRY TSH 2.33 uIU/mL (0.358-3.74) 04/21/23 13:27 COAG Urine Test Negative Negative 03/01/25 06:54 03/01/25 Pre-Assessment Diagnosis/Proposed Procedure Planned Operative Procedure(s): EGD 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 class b: Anesthesia History - machinist class b Hx Hospitalization Yes: 01/11/2025 THYROID 02/27/25 12:18 REMOVAL Any Problems With Anesthesia Yes: N,V 02/27/25 12:18 Cholinesterase deficiency No 02/27/25 12:18 You/Your Family Experience No 02/27/25 12:18 fever (hyperthermia) with Relationship Recent Exposure to Contagious No 03/01/25 07:01 Disease Does patient have nerve No 02/27/25 12:18 stimulator Patient instructed to have device shut off --Does patient have Pacemaker No 03/01/25 07:01 or ICD? When Was Last Pacemaker Check QUESTION #4 FULL TEXT: You/Your Family Experience fever (hyperthermia) with Anesthesia Last Oral Intake Last Oral intake: Last Oral Intake NPO since 00:00 03/01/25 07:01 Meds taken in AM with sips of Yes 03/01/25 07:01 water? Meds patient instructed to take am of surgery PONV PONV - machinist class b: PONV - machinist class b Female Yes 02/27/25 12:18 HX of Motion Sickness No 02/27/25 12:18 HX of N/V After Surgery Yes 02/27/25 12:18 Non-Smoker Yes 02/27/25 12:18 Duration of Surgery greater No 02/27/25 12:18 than 60 minutes Number of Risk Factors 3 02/27/25 12:18 PONV Score Moderate Risk 02/27/25 12:18 Height & Weight Height & Weight: Anesthesia: Height & Weight Height 5 ft 7 in 03/01/25 07:01 Weight: 70.9 kg 03/01/25 07:01 Body Mass Index (BMI) 24.5 03/01/25 07:01 Respiratory Assessment Respiratory Assessment - machinist class b: Respiratory Tract Infection Hx - machinist class b Hx Respiratory Tract Infection No 02/27/25 12:18 STOP Sleep Apnea STOP Sleep Apnea - machinist class b: STOP Sleep Apnea - machinist class b Hx Hypertension No 02/27/25 12:18 Hx Sleep Apnea No 02/27/25 12:18 CPAP No 02/27/25 12:18 BIPAP Do you snore loudly (louder No 02/27/25 12:18 than talking or can be heard Do you often feel tired/ No 02/27/25 12:18 fatigued/ sleepy during daytime? Has anyone observed you stop No 02/27/25 12:18 breathing during sleep? STOP Results Negative 02/27/25 12:18 QUESTION #5 FULL TEXT : Do you snore loudly (louder than talking or can be heard through closed doors)? 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 Specify any problems Hx of Preganancy in last 3 No 02/27/25 12:18 Months Nurse Filling Out Transfusion VCHRISTIN 02/27/25 12:18 & Questions: Date: 02/27/25 02/27/25 12:18 Time: 12:19 02/27/25 12:18 Patient unable to answer at this time (ie. confused, unrespo /Reproduction History /Reproductive History - machinist class b: /Reproductive Hx- machinist class b Hx Now No 02/27/25 12:18 Gestational Age (in weeks): EDC: Hx Hx Para Hx Section SAB No 02/27/25 12:18 Active Medications Active Medications: Current Medications Generic Name Dose Route Start Last Admin Trade Name Freq PRN Reason Stop Dose Admin Lactated Ringer's 1,000 mls @ 15 mls/hr 03/01/25 06:45 03/01/25 07:03 IV 15 mls/hr .Q48H TATYANA Administration PFSH Medical History Thyroid cancer Wears contact lenses Alcohol use Gastric reflux Asthma Non-smoker Chest pain Thyroid nodule Acid reflux Home Medications ?Medication ?Instructions ?Recorded ?Last Taken ?Type multivitamin (Daily Multi-Vitamin 1 tab PO DAILY 05/0502/28/25 History tablet) hydroxyzine HCl 25 mg tablet 25 mg PO BID PRN anxiety 10/04/24 02/28/25 History calcium carbonate (Tums) 200 mg PO DAILY PRN dyspepsi a 10/26/24 02/28/25 History levothyroxine 112 mcg tablet 112 mcg PO DAILY 02/27/25 03/01/25 History Allergy/AdvReac Type Severity Reaction Status Date / Time cefaclor (From [facility]) Allergy Rash Verified 03/01/25 07:00 Family History Grandmother Cancer Thyroid disorder Surgical History (Updated 02/27/25 @ 12:18 by Allegra Laureano) Hx of thyroidectomy History of esophagogastroduodenoscopy (EGD) History of lobectomy of thyroid Hx of oral surgery Hx of wisdom tooth extraction H/O section Social History Smoking Status: Never smoker alcohol intake: current alcohol intake frequency: a few times a month Review of Systems (Anesthesia) ROS Narrative System reviewed and no additional complaints, except as documented. Physical Exam Resp clear to auscultation bilaterally 03/01/25721 <Electronically signed by Elliott hart MD> Date _ Elliott Reynaga MD Cosigner Signature: Date CC: ~ Signed [facility] Work Phone: Consult note Author Modesto Abramsohio [facility] Note Date/Time March 01, 2025 8: 14am [facility] Medical Records Department [address] [place] [address] Anesthesia Postop Eval I 03/01/25811 MR#: [id number] Acct: [id number] Name: SIMA KEEN Rep #:[id number] : 1985 39 From: Modesto Zhou RNA PCP: ANIBAL Workman Status:REG [facility] Y Race: C Location: [place] [address] Anesthesia: Postop Eval I Current Vital Signs Temperature: 98 F Pulse Rate: 76 Blood Pressure: 82/54 Respiratory Rate: 16 Pulse Ox: 95 Oxygen Delivery Method: Room Air Assessment Airway patent: Yes Spontaneous unlabored respirations: Yes Mental status: Awake and Calm nausea: No Vomiting: No Anesthesia Complication: No Fluid Hydration Crystalloid volume administer (ml): 300 Total IV fluid infused: 300 Progress Note Anesthesia document: Postop Eval 1 completed: Yes 03/01/25813 <Electronically signed by Modesto Nunez CRNA> Date _ Modesto Nunez CRNA Cosigner Signature: Date CC: ~ Signed [facility] Work Phone: Consult note Author Modesto Nunez [facility] Note Date/Time March 01, 2025 9: 15am [facility] Medical Records Department [address] [place] [address] Anesthesia Postop Eval II 03/01/25823 MR#: [id number] Acct: [id number] Name: SIMA KEEN Rep #:[id number] : 1985 39 From: Modesto Zhou RNA PCP: ANIBAL Workman Status:REG [facility] Y Race: C Location: [place] [address] Anesthesia Postop Eval I Sum Postop Eval Completion status Anesthesia document: Postop Eval 1 completed: Yes Anesthesia Postop Eval I Summary Anesthesia Postop Eval I Summary: Anesthesia Postop Eval I: Assessment Summary Airway patent Yes 03/01/25 08:14 PRINCIPAL MECHANICAL ENGINEER.KAREL Spontaneous unlabored Yes 03/01/25 08:14 PRINCIPAL MECHANICAL ENGINEERANNEL respirations Mental status Awake,Calm 03/01/25 08:14 PRINCIPAL MECHANICAL ENGINEERANNEL nausea No 03/01/25 08:14 PRINCIPAL MECHANICAL ENGINEER.OT Vomiting No 03/01/25 08:14 PRINCIPAL MECHANICAL ENGINEERANNEL Anesthesia Postop Eval I: Fluid Summary Crystalloid volume administer 300 03/01/25 08:14 PRINCIPAL MECHANICAL ENGINEERANNEL (ml) Colloids volume administered ( ml) Blood Product volume administered (ml) Total IV fluid infused 300 03/01/25 08:14 PRINCIPAL MECHANICAL ENGINEERANNEL Anesthesia Postop Eval I: Summary Notes Anesthesia Complication No 03/01/25 08:14 PRINCIPAL MECHANICAL ENGINEERANNEL Anesthesia Complication Comment: Post-operative progress note Anesthesia: Postop Eval II Evaluation Mental status: Awake and Calm Pain Level: 0 nausea: No Vomiting: No Complications Anesthesia Complication: No 03/01/25 0824 <Electronically signed by Modesto Nunez CRNA> Date _ Modesto Nunez CRNA Cosigner Signature: Date CC: ~ Signed [facility] Work Phone: Evaluation note* Diagnosis Onset Date Resolution Status Acid reflux acute Dysphagia acute Globus sensation acute [facility] Work Phone: Evaluation note* Diagnosis Malignant neoplasm of thyroid gland (HCC)- Primary Malignant neoplasm of thyroid gland Papillary carcinoma of thyroid (HCC) Malignant neoplasm of thyroid gland [facility] Diagnosis Esophagitis- Primary Esophagitis, unspecified Papillary carcinoma of thyroid (HCC) Malignant neoplasm of thyroid gland PONV (postoperative nausea and vomiting) Nausea with vomiting Anxiety Anxiety state, unspecified History of lobectomy of thyroid Papillary carcinoma of thyroid (HCC) Malignant neoplasm of thyroid gland * Assessment & Plan Note - Dina Najera APRN.CNP - 01/02/2025 10:21 AM EDTAssociated Problem(s): Esophagitis [...] vomiting) Patient reported [facility] Diagnosis Esophagitis- Primary Esophagitis, unspecified Papillary carcinoma of thyroid (HCC) Malignant neoplasm of thyroid gland PONV (postoperative nausea and vomiting) Nausea with vomiting Anxiety Anxiety state, unspecified History of lobectomy of thyroid Papillary carcinoma of thyroid (HCC)- Primary Malignant neoplasm of thyroid gland [facility] Diagnosis Esophagitis- Primary Esophagitis, unspecified Papillary carcinoma of thyroid (HCC) Malignant neoplasm of thyroid gland PONV (postoperative nausea and vomiting) Nausea with vomiting Anxiety Anxiety state, unspecified History of lobectomy of thyroid Malignant neoplasm of thyroid gland (HCC)- Primary Malignant neoplasm of thyroid gland [facility] Diagnosis Esophagitis- Primary Esophagitis, unspecified Papillary carcinoma of thyroid (HCC) Malignant neoplasm of thyroid gland PONV (postoperative nausea and vomiting) Nausea with vomiting Anxiety Anxiety state, unspecified History of lobectomy of thyroid Malignant neoplasm of thyroid gland (HCC) Malignant neoplasm of thyroid gland [facility] noteNo assessment information availableWProvidence [facility] Work Phone: Evaluation note* Diagnosis Esophagitis- Primary Esophagitis, unspecified Papillary carcinoma of thyroid (HCC) Malignant neoplasm of thyroid gland PONV (postoperative nausea and vomiting) Nausea with vomiting Anxiety Anxiety state, unspecified History of lobectomy of thyroid Esophagitis- Primary Esophagitis, unspecified Malignant neoplasm of thyroid gland (HCC) Malignant neoplasm of thyroid gland [facility] Author David Cano [facility] Note Date/Time October 26, 2024 9:3 2am [facility] Medical Records Department [address] [place] [address] History & Physical Exam 10/26/24 0931 MR#: [id number] Acct: [id number] Name: SIMA KEEN Rep #:[id number] : 1985 39 From: David Anne PCP: ANIBAL Workman Status:[facility] Location: [place] [address] History and Physical Date of Admission: 10/26/24 MR#: [id number] Acct: [id number] Name: SIMA KEEN Rep #: [id number] : 1985 Provider: Dr. David Cano MD Age/Sex: 38/F Location: [facility] Status: Signed Intake Vital Signs 05/13/2309:50 09/02/2407:13 Height 5 ft 7 in 5 ft 7 in BP 102/69 Blood Pressure Location Rt brachial Position Sitting Respiration 17 Pulse 88 Pulse Source Monitor Temp 97.4 F L Temp Source Temporal Pulse Oximetry (%) 99 Oxygen Delivery Method room air Intake Visit Reasons: 1 yr fu Chief Complaint: F/u medication Teenage Program Director Required: No Is patient in pain?: No Allergies cefaclor [From [facility]] Allergy (Verified 09/02/23 08:14) Rash Medications amoxicillin [...] thyroid bed. She is being referred to [facility] for further evaluation of this issue and has been informed that this certainly could be contributing to her symptoms. Yet given her history of eosinophilic esophagitiswithout follow-up endoscopy I recommended follow-up EGD with biopsy. She is prepared undergo this procedure today. Expectations were reviewed and all questions answered. Proceed to endoscopy suite as planned. 10/26/24 0932 <Electronically signed by David Cano MD> Cosigner Signature (if applicable): CC: Dr. David Cano MD; ANIBAL Workman~ Signed [facility] Work Phone: History and physical note Author David Cano [facility] Note Date/Time March 01, 2025 7: 43am [facility] Medical Records Department [address] [place] [address] History & Physical Exam 03/01/25 0741 MR#: [id number] Acct: [id number] Name: SIMA KEEN Rep #:[id number] : 1985 39 From: David Anne PCP: ANIBAL Workman Status:REG [facility] Location: [address] History and Physical Date of Admission: 03/01/25 Date of Service: 10/04/24 MR#: [id number] Acct: [id number] Name: SIMA KEEN Rep #: [id number] : 1985 Provider: Dr. David Cano MD Age/Sex: 39/F Location: [facility] Status: Signed Intake Vital Signs 12/08/2408:44 10/04/2512:16 Height 5 ft 7 in 5 ft 7 in Weight: 159 lb BMI 24.9 BP 126/86 H Blood Pressure Location Rt brachial Position Sitting Respiration 17 Pulse 90 Pulse Source Monitor Pulse Oximetry (%) 99 Oxygen Delivery Method room air Intake Visit Reasons: THYROID NODULE Chief Complaint: thyroid nodule Is patient in pain?: No Allergies cefaclor (From Ceclor) Allergy (Verified 10/04/24 13:17) Rash Medications ?Medication ?Instructions ?Recorded ?Confirmed ?Type multivitamin (Daily Multi-Vitamin 1 tab PO DAILY 05/05/23 10/04/24 History tablet) hydroxyzine HCl 25 mg tablet 25 mg PO BID PRN 10/04/24 10/04/24 Histo ry PFSH Medical History Thyroid cancer Wears contact [...] 39-year-old female who makes consultation related to newly?discovered right thyroid bed nodule status post right thyroid lobectomy on06/23/2021 with me for 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 Surveillance visits were conducted with both myself and endocrinology with a most recent thyroid ultrasound occurring April 2023 that demonstrated no thyroid tissue of the surgical bed on the right. Patient states a couple of months ago that she began experiencing a fullness of her throat and finding thatwith swallowing sometimes food got stuck. She does distinguish this from her experience with eosinophilic esophagitis which I have also been managing after we diagnosing with endoscopy. She recalls a recent physical exam with her primary care provider, Mrs. Blankissa ANIBAL Batista and it was noted that no ultrasound of her neck had been performed recently so this was ordered?ultimately leading to the findings which occasion her [...] other Exam Const General: cooperative and anxious Orientation: alert, awake and oriented x3 Neck Other: Well-healed transverse neck incision. Mild fullness of the right neck is appreciated but there is no tenderness. I do not appreciate any additional cervical lymphadenopathy. The ultrasound identify a larger hypoechoic area adjacent to the trachea and deep and medial to the carotid artery that measures 2.1 x 1.4 x 1.3 cm. There is a second hypoechoic area in the region previously occupied by patient's thyroid isthmus medially and inferiorly that measures 1.3 x 1.0 x 0.9 cm. Office Procedures Fine Needle Aspiration Provider Documentation Details: Indication: Right thyroid nodules After obtaining patient consent and conducting a timeout amongst those present, the procedure was commenced by locating the suspicious nodules in the superior lateral and inferior medial (overlying the trachea) positions on the right usingultrasound. Superficially, the skin was cleaned with an alcohol swab. A total volume of 5 ml 1% lidocaine was required for this procedure. Then, under ultrasound guidance, multiple passes were made into the 2.1 cm nodule using a 25-gauge needle. Once an adequate specimen was detected within the hub of the needle and bottom of the syringe, this was handed off the field. A second pass was made in a similar manner using a 22- gauge needle. This specimen, also, was passed off the field for cytopathologic evaluation. A third pass was made with asecond 22-gauge needle for Afir[employer]/genomic sequencing banking should patient havean atypical cytopathology result. External pressure was applied to the neck toassist with hemostasis. This process was repeated with 3 separate passes using the same needle sizes for patient's more inferior medial nodule (in the vicinityof patient's prior thyroid isthmus) using ultrasound guidance. Once again external pressure was applied to assist with hemostasis. A quick examination was made with ultrasound to exclude any evidence of hematoma formation. Then the surface of the neck was cleaned, dried, and a bandage was applied. Patient was gradually returned to the sitting position and after short period of monitoring was dismissed. Wound care instructions and expectations regarding pathologic processing were discussed prior to dismissal. Complications: None Estimated blood loss: 3 ml Alert Fire Watchman Alert Billing: Yes [id number] Thyroid (X 2) Procedure Time Out Time Out Informed consent given: Yes Consent signed: Yes Time out checklist: patient, procedure, site marked/identified, positioning of patient, supplies available, allergies confirmed and team agrees on procedure Time out staff in room: Yes Time out verified: Yes Time out date: 10/04/24 Time out time: 13:19 Assessment and Plan Assessment and Plan (1) Thyroid nodule: Status: Acute Comment: Patient is a 39-year-old female with history of right?sided papillary thyroid cancer, follicular variant 1.8 cm with no high risk features status post right thyroid lobectomy and isthmusectomy in June 2021 who presents today with symptoms of dysphagia and new nodularity of her prior surgical bed. Patient otherwise denies compressive symptoms and denies significant health update. Notably, she does distinguish this from her experience with eosinophilic esophagitis. I shared frankly with . Mrs. Keen that I was concerned this [...] clinically suspicious with the TI-RADS rating given byradiology. After I was provided with consent, I [...] laryngeal nerve would not be in significant. Plan: ?Patient advised to apply ice to neck today. Use [id number] analgesia. Remove bandage later today ?Await cytopathology results and follow-up with patient for formulation of remainder of care plan I have examined the patient the following changes are noted: Patient underwent completion thyroidectomy with central lymph node dissection at [facility] for recurrent thyroid cancer. She reports that she recovered well and has experience just some slight hoarseness of her voice. She denies any swallowing difficulty at present but does report a couple instances of reflux in recentweeks. She does confirm she completed her prescribed course of budesonide. Shedenies any questions related today's plans to proceed with EGD to assess status of prior diagnosis of eosinophilic esophagitis. 03/01/25 0743 <Electronically signed by David Cano MD> Cosigner Signature (if applicable): CC: Dr. David Cano MD; ANIBAL Workman~ Signed [facility] Work Phone: Reason for referral (narrative)No reason for referral information availableWProvidence Hospital Work Phone: Summary Purpose Family History No [...] Will No May 05 11:54am Power of Compressor Operator Portable No May 05, 2023 11:54am Advance Directive Response Recorded Date/ Time Living Will No October 23, 2024 8:58am Do you have a Healthcare Power of Compressor Operator Portable? No October 23, 2024 8:58am Advance Directive Response Recorded Date/ Time Do you have a Healthcare Power of Compressor Operator Portable? No February 27, 2025 12:18pm Chief Complaint and Reason for Visit Chief [...] section and content) DATE CREATED AUTHOR 09/21/2020 [facility] DATE CREATED AUTHOR AUTHOR'S ORGANIZ ATION 05/22/2021 [facility] DATE CREATED AUTHOR AUTHOR'S ORGANIZ ATION 09/01/2024 [facility] DATE CREATED AUTHOR AUTHOR'S ORGANIZ ATION 09/02/2024 [facility] DATE CREATED AUTHOR AUTHOR'S ORGANIZ ATION 01/18/2025 [facility] DATE CREATED AUTHOR AUTHOR'S ORGANIZ ATION 03/31/2025 [facility] DATE CREATED AUTHOR AUTHOR'S ORGANIZ ATION [facility] Teams (unrecognized sec tion and content) Team Status: Active Member Role Status Dates ANIBAL Roberts Primary Care Provider Active Team Status: Inactive Member Role Status Dates ANIBAL Roberts Primary Care Provider Active Start: September 04, 2024 End: September 04, 2024 ANIBAL Roberts Attending Provider Active Start: September 04, 2024 End: September 04, 2024 Alanis BARNETT PA Referring Provider Active Start: September 04, 2024 End: September 04, 2024 Team Status: Inactive Member Role Status Dates ANIBAL Roberts Primary Care Provider Active Start: October 04, 2024 End: October 04, 2024 Alanis BARNETT PA Referring Provider Active Start: October 04, [...] Provider Active Start: October 26, 2024 Alanis Batista PA, PA Referring Provider Active Start: October 26, 2024 Dr. David Cano MD Attending Provider Active Start: October 26, 2024 Dr. David Cano MD Other Provider Active Sta rt: October 26, 2024 [employer] Specialist Relationship Specialty Start Date End Date Alanis Batista [address] [place] [address] [place] [address] PCP - General Family Medicine 12/08/24 [employer] Specialist Relationship Specialty Start Date End Date Alanis Batista [address] [place] [address] PCP - General Family Medicine 12/08/24 [employer]ios[employer] Specialist Relationship Specialty Start Date End Date Alanis Batista [address] [place] [address] PCP - General Family Medicine 12/08/24 Radios[employer] Specialist Relationship Specialty Start Date End Date Alanis Batista [address] [place] [address] PCP - General Family Medicine 12/08/24 Radiosonde Specialist Relationship Specialty Start Date End Date Alanis Batista [address] [facility] [place] [address] PCP - General Family Medicine 12/08/24 Radiosonde Specialist Relationship Specialty Start Date End Date Alanis Batista [address] [facility] [place] [address] PCP - General Family Medicine 12/08/24 Radiosonde Specialist Relationship Specialty Start Date End Date Alanis Batista [address] [facility] [place] [address] PCP - General Family Medicine 12/08/24 Radiosonde Specialist Relationship Specialty Start Date End Date Alanis Batista [address] [place] [address] PCP - General Family Medicine 12/08/24 Radiosonde Specialist Relationship Specialty Start Date End Date Alanis Batista [address] [place] [address] PCP - General Family Medicine 12/08/24 Team Status: Active Member Role/Relationship Status Dates ANIBAL Roberts Primary Care Provider Active Team Status: Inactive Member Role/Relationship Status Dates ANIBAL Roberts Primary Care Provider Active Start: March 01, 2025 End: March 01, 2025 ANIBAL Roberts Referring Provider Active Start: March 01, 2025 End: March 01, 2025 Dr. David Cano MD Attending Provider Active Start: March 01, 2025 End: March 01, 2025 Team Status: Active Member Role/Relationship Status Dates ANIBAL Roberts Primary Care Provider Active Start: March 01, 2025 ANIBAL Roberts Referring Provider Active Start: March 01, 2025 Dr. David Cano MD Attending Provider Active Start: March 01, 2025 Dr. David Cano MD Other Provider Active Sta rt: March 01, 2025 [employer]ios[employer] Specialist Relationship Specialty Start Date End Date Alanis Batista [address] [facility] [place] [address] PCP - General Family Medicine 12/08/24 Radiosonde Specialist Relationship Specialty Start Date End Date BatistaRosamaria merchantgolden Fang [address] [facility] [place] [address] PCP - General Family Medicine 12/08/24 Goals [...] or prosecute any alcohol or drug abuse patient.[facility] the event this information is protected by the Federal Confidentiality of Alcohol and Drug Abuse Patient Records regulations: The Federal rules restrict any use of the information to criminally investigate or prosecute any alcohol or drug abuse patient.[facility] the event this information is protected by the Federal Confidentiality of Alcohol and Drug Abuse Patient Records regulations: The Federal rules restrict any use of the information to criminally investigate or prosecute any alcohol or drug abuse patient.[facility] the event this information is protected by the Federal Confidentiality of Alcohol and Drug Abuse Patient Records regulations: The Federal rules restrict any use of the information to criminally investigate or prosecute any alcohol or drug abuse patient.[facility] the event this information is protected by the Federal Confidentiality of Alcohol and Drug Abuse Patient Records regulations: The Federal rules restrict any use of the information to criminally investigate or prosecute any alcohol or drug abuse patient.[facility] the event this information is protected by the Federal Confidentiality of Alcohol and Drug Abuse Patient Records regulations: The Federal rules restrict any use of the information to criminally investigate or prosecute any alcohol or drug abuse patient.[facility] Center[facility] the event this information is protected by the Federal Confidentiality of Alcohol and Drug Abuse Patient Records regulations: The Federal rules restrict any use of the information to criminally investigate or prosecute any alcohol or drug abuse patient.[facility] Center[facility] the event this information is protected by the Federal Confidentiality of Alcohol and Drug Abuse Patient Records regulations: The Federal rules restrict any use of the information to criminally investigate or prosecute any alcohol or drug abuse patient.[facility] Center[facility] the event this information is protected by the Federal Confidentiality of Alcohol and Drug Abuse Patient Records regulations: The Federal rules restrict any use of the information to criminally investigate or prosecute any alcohol or drug abuse patient.[facility] Center[facility] the event this information is protected by the Federal Confidentiality of Alcohol and Drug Abuse Patient Records regulations: The Federal rules restrict any use of the information to criminally investigate or prosecute any alcohol or drug abuse patient.[facility] Center[facility] the event this information is protected by the Federal Confidentiality of Alcohol and Drug Abuse Patient Records regulations: The Federal rules restrict any use of the information to criminally investigate or prosecute any alcohol or drug abuse patient.[facility] Center[facility] the event this information is protected by the Federal Confidentiality of Alcohol and Drug Abuse Patient Records regulations: The Federal rules restrict any use of the information to criminally investigate or prosecute any alcohol or drug abuse patient.[facility] Center[facility] the event this information is protected by the Federal Confidentiality of Alcohol and Drug Abuse Patient Records regulations: The Federal rules restrict any use of the information to criminally investigate or prosecute any alcohol or drug abuse patient.[facility] Center[facility] the event this information is protected by the Federal Confidentiality of Alcohol and Drug Abuse Patient Records regulations: The Federal rules restrict any use of the information to criminally investigate or prosecute any alcohol or drug abuse patient.[facility] Center[facility] the event this information is protected by the Federal Confidentiality of Alcohol and Drug Abuse Patient Records regulations: The Federal rules restrict any use of the information to criminally investigate or prosecute any alcohol or drug abuse patient.[facility] Reason for Visit (unrecogniz ed section and content) Reason Comments Outside Referral Requests Reason Comments Consult FACE SHEET Reason Comments Pre-Op Visit Reason Comments Thyroid Disease Reason Comments Appointment Left a message [facility] [phone] to schedule a Consult with a [facility] Med for [place] Treatment for Thyroid Cancer diagnosis and sent My Chart message Reason Comments Thyroid Cancer Specialty Diagnoses / Procedures Referred By Contac t Referred To Contact Endocrinology Diagnoses Malignant neoplasm of thyroid gland (HCC) Procedures CONSULT TO ENDOCRINOLOGY OFFICE/OUTPATIENT [facility] 60 MINUTES Jeyson Bustamante MD [address] [place] [address] Phone: tel: fax: Referral ID Status Reason Start Date Expiration Date V isits Requested Visits Authorized [id number] Closed PCP Requested Referral 01/29/2025 01/29/2026 1 [...] BE BASED ON THE PRIMARY CLINICAL RECORDS. [facility] [employer] [facility]. provides no warranty or guarantee of the accuracy or completeness of information in this document.
--- OUTSIDE RECORDS SUMMARY | 2025-04-13 07:30 | XMS RPT_ITS | CCD ---
Author Organization [facility] Care Team Providers Care Hat Maker Name Role Phone ALANIS BATISTA Admitting Unavailable [...] Unavailable General Surgery Provider Unavailable Unavail able [facility] Unavailable Naheed Her LPN Unavailable Sarita Chavez PA-C Unavailable Supriya Stratton PA-C Unavailable Rickey SHEPPARD, Gregg E Unavailable Manny CRYPTOLOGICAL TECHNICIAN, Ann Unavailable Unavailable Skylar BURDICK, Supriya Clements Unavailable Unavaila ble Gabbi CRYPTOLOGICAL TECHNICIAN, Wendy Unavailable Unavailable Zay BURDICK, Juana Unavailable Hector BURDICK, Jessica Carbone Unavailable Unavailable Lamas CRYPTOLOGICAL TECHNICIAN, June Unavailable Unavailable Earline CRYPTOLOGICAL TECHNICIAN, Juliet M Unavailable Unavailab domonique Morgan MA, Ann Unavailable Unavailable Jodi IGNACIO, Alta Clements Unavailable Vess CRYPTOLOGICAL TECHNICIAN, Katarinaphi L Unavailable Unavailable Wengerd CRYPTOLOGICAL TECHNICIAN, Anabel Unavailable Unavailabl e Unavailable Unavailable [facility] Unavailable [facility] Attending Unavailable Batista PA, Alanis Primary Care Provider Batista PA, Alanis Attending Provider Lester BARNETT, Alanis Referring Provider Dr. David Cano MD [...] Reaction(s) Facility (1 source) Cefaclor Drug Allergy [facility] Repository (20 sources) Cefaclor; Translations: [CEFACLOR] Drug Allergy 05-13-2023 Rash [facility] (1 source) Cefaclor Drug Allergy 03-01-2025 [facility] Repository Medications Current Medications Medication Drug Class(es) [...] 1 tablet by mouth three times daily xgqlytk-jfnccnysn-oddnieu D3 500 mg-5 mcg (200 unit) per [...] 50 mcg/actuation nasal spray,susp ; 1 (one) Carson in each nostril BID for 0 days Quantity: 1 {Applicator} Refills: 0 Ordered: 30-Aug-2024 JAVAD Patten Start: 02-Nov-2022 End: 30-Aug-2024 Status: Inactive Start: 11-02-2022 take 1 spray(s) nasa l route twice daily Children's Flonase Allergy Relief 50 mcg/actuation nasal spray,susp ; 1 (one) Carson in each nostril BID for 0 days [...] She came in on Wednesday and saw [facility] - gave her cream but the pharmacy [...] Unclassified (20 sources) wart - Pt. saw [facility] 03/11/15 and cryo surgery was preformed on [...] Range Facility EGD Reporton 03-01-2025 EGD Report [facility] Medical Records Department [address] [place] [address] EGD Report MR#: [id number] Acct: [id number] Name: SIMA KEEN Rep #: [id number] : 1985 39 From: David Cano MD PCP: ANIBAL Workman Status[place] [facility] Patient Name: Sima Keen Procedure Date: 03/01/2025 [...] 1 week. Procedure Code(s): --- Professional --- 33090, Esophagogastroduodenoscopy, flexible, transoral; with biopsy, single or multiple Diagnosis Code(s): --- Professional --- K31.89, Other diseases of stomach and duodenum K22.10, Ulcer of esophagus without bleeding K22.89, Other specified disease of esophagus K20.0, Eosinophilic esophagitis CPT copyright 2021 [employer]. All rights reserved. The codes documented in this report are preliminary and upon clamp truck driver review may be revised to meet current compliance requirements. David Cano MD 03/01/2025 8:20:08 AM This report has been signed electronically. Number of Addenda: 0 Note Initiated On: 03/01/2025 7:12 AM 03/01/25820 Date David Naranjo Signature: Date (if indicated) CC: Dr. David Cano MD; ANIBAL Workman Date Dictated: 03/01/25711 Date Transcribed: Oil Field Tester: MIGDALIA Signed Normal [facility] Immunohistochemical Stainson 03-01-2025 Immunohistochemical Stains Patient Age/Sex Location Account Attending Physician SIMA KEEN 39/F EN [id number] Dr. David Cano MD Specimen: [id number] Received: 03/01/25 Status: AZRA Gale Num: [id number] Spec Type: EGD BIOPSY Subm Dr: Dr. [...] developed and their performance characteristics determined by [facility]. They may not have been cleared [...] Account Attending Physician SIMA KEEN 39/F EN [id number] Dr. David Cano MD soft tissue that [...] specimen is totally submitted in one cassette. OR 03/01/2025 [facility]:[id number] ADDENDUM Addendum 1 Entered: 03/05/250078 This addendum is to report the result of the H pylori IHC on part A: A. IHC negative for H. pylori organisms. Addendum Signed (signature on file) Dr. Anusha Jay MD 03/05/25 1457 Patient Age/Sex Location Account Attending Physician SIMA KEEN 39/F EN [id number] Dr. David Cano MD Signed (signature on file) Dr. Anusha Jay MD 03/04/25 1314 Normal [facility] Comment on above: Performed By: #### P FÁTIMA GENAO #### [facility] [address] [place], [place], [address] MR/OP.PROVATon 03-01-2025 MR/OP.PROVAT [facility] Medical Records Department [address] [facility] [place] [address] Provation Physician Letter MR#: [id number] Acct: [id number] Name: SIMA KEEN Rep #: [id number] : 1985 39 From: David Cano MD PCP: ANIBAL Workman [place] [facility] 03/01/2025 Alanis Batista Re : Upper GI [...] ANIBAL Workman Date Dictated: 03/01/25711 Date Transcribed: Oil Field Tester: MIGDALIA Signed [facility] MR/POSTOP.[facility] 03-01-2025 MR/POSTOP.[facility] Medical Records Department [address] [place] [address] Anesthesia Postop Eval I 03/01/25811 MR#: [id number] Acct: [id number] Name: SIMA KEEN Rep #: [id number] : 1985 39 From: Modesto Nunez CRNA PCP: ANIBAL Workman Status:REG SDC Y Race: C Location: [place] [address] Anesthesia: Postop Eval I Current Vital Signs [...] 1 completed: Yes 03/01/25813 Date Modesto Dotterer DISC INSPECTOR Cosigner Signature: Date CC: Signed Normal [facility] MR/SBJLQTRS5cr 03-01-2025 MR/POSTOPAN2 [facility] Medical Records Department [address] [place] [address] Anesthesia Postop Eval II 03/01/25823 MR#: [id number] Acct: [id number] Name: SIMA KEEN Rep #: [id number] : 1985 39 From: Modesto Nunez CRNA PCP: ANIBAL Workman Status:REG SDC Y Race: C Location: [facility] Anesthesia Postop Eval I Sum Postop Eval Completion status Anesthesia document: Postop Eval 1 completed: Yes Anesthesia Postop Eval I Summary Anesthesia Postop Eval I Summary: Anesthesia Postop Eval I: Assessment Summary Airway patent Yes 03/01/25 08:14 DISC INSPECTOR.MDOT Spontaneous unlabored Yes 03/01/25 08:14 DISC INSPECTOR.MDOT respirations Mental status Awake,Calm 03/01/25 08:14 DISC INSPECTOR.MDOT nausea No 03/01/25 08:14 DISC INSPECTOR.MDOT Vomiting No 03/01/25 08:14 DISC INSPECTOR.MDOT Anesthesia Postop Eval I: Fluid Summary Crystalloid volume administer 300 03/01/25 08:14 DISC INSPECTOR.MDOT (ml) Colloids volume administered ( ml) Blood Product volume administered (ml) Total IV fluid infused 300 03/01/25 08:14 DISC INSPECTOR.KAREL Anesthesia Postop Eval I: Summary Notes Anesthesia Complication No 03/01/25 08:14 DISC INSPECTOR.MDOT Anesthesia Complication Comment: Post-operative progress note Anesthesia: Postop Eval II Evaluation Mental status: Awake and Calm Pain Level: 0 nausea: No Vomiting: No Complications Anesthesia Complication: No 03/01/25823 Modesto Nunez DISC INSPECTOR Cosigner Signature: Date CC: Signed Normal [facility] ,Urineon 03-01-2025 Beta HCG ( test) Ql (U) Negative Normal [facility] Comment on above: Result Comment: Very dilute urine specimens, as indicated by a low specific gravity, may not contain ocean import representative levels of hCG. If is still suspected, a first morning urine specimen should be collected 48 hours later and tested. Performed By: #### P GEOVANI #### [facility] [place], [address] Surgery Specimen Level IIIon 03-01-2025 Surgery Specimen Level III Patient Age/Sex Location Account Attending Physician SIMA KEEN 39/F EN [id number] Dr. David Cano MD Specimen: [id number] Received: 03/01/25 Status: AZRA Gale Num: [id number] Spec Type: EGD BIOPSY Subm Dr: Dr. [...] developed and their performance characteristics determined by [facility]. They may not have been cleared [...] Account Attending Physician SIMA KEEN 39/F EN [id number] Dr. David Cano MD soft tissue that [...] specimen is totally submitted in one cassette. OR 03/01/2025 CPT:70656u4,93687 Patient Age/Sex Location Account Attending Physician SIMA KEEN 39/F EN [id number] Dr. David Cano MD Signed (signature on file) Dr. Anusha Jay MD 03/04/25 1314 Normal [facility] Comment on above: Performed By: #### P FÁTIMA GENAO #### [facility] Leandro Vera [place], [place], [address] T4 Free SerPl-ncon 03-01- 025 Free T4 [Mass/Vol] 1.8 ng/dL High 0.9-1.7 [facility] Comment on above: Order Comment: Speci men Type: BLOOD SPECIMENOrdering Facility: [facility] Address: [address] [place] [address] Performed By: #### 3 016-3, 3024-7 ####[facility] [id number] [place] [address] [place] TSH SerPl-aCncon 03-01-2025 TSH Qn 0.315 m[IU]/L Normal 0.270-4.20 0 [facility] Comment on above: Order Comment: Specjin shipley Type: BLOOD SPECIMENOrdering Facility: [facility] Address: [address] [place] [address] Result Comment: If t he patient is , TSH reference range varies by gestational period: First Trimester (weeks 9-12): 0.180-2.990 mIU/L Second Trimester: 0.110-3.980 mIU/L Third Trimester: 0.480-4.710 mIU/L Andrew Garcia et al. A Practical Approach for the Verifications and Determination of Site- and Trimester-Specific Reference Intervals for Thyroid Function tests in . Thyroid, 2019:29:3:412-420. Isaac E, et al. 2017 Guidelines of the [employer] Thy[employer] Association for the Diagnosis and Management of Thyroid Disease during and the . Thyroid, 2017:27:3:315-389. Performed By: #### 3 016-3, 3024-7 ####[facility] [id number] [place] [id number] [place] Thyroglobulin and Thyrogobul in Ab panelon 03-01-2025 Thyroglobulin Ab Qn 2.4 [IU]/mL Normal <4.0 [facility] Comment on above: Order Comment: Xavier shipley Type: BLOOD SPECIMENOrdering Facility: [facility] Address: [address] [place] [address] Result Comment: The Thyroglobulin Antibody test was performed using the [employer] DXI paramagnetic particle chemiluminescent immunoassay method. Results obtained with different assay methods or kits cannot be used interchangeably. Performed By: #### 5 7780-9 ####[facility] [id number] [place] [address] [place] THYROGLOBULIN, SERUM 0.2 ng/mL Low 1.6-50.0 [facility] Comment on above: Order Comment: Speci men Type: BLOOD SPECIMENOrdering Facility: [facility] Address: [address] [place] [address] Result Comment: The Thyroglobulin test was performed using the [employer] DXI paramagnetic particle chemiluminescent immunoassay method. Results obtained with different assay methods or kits cannot be used interchangeably. Performed By: #### 5 7780-9 ####[facility] [id number] [place] [address] [place] Urine testOrdered By: Elliott Reynaga on 03-01-2025 HCG ( test) Ql (U) Negative [facility] Comment on above: Very dilute urine sp ecimens, as indicated by a low specificgravity, may not contain ocean import representative levels of hCG. If is still suspected, a first morning urinespecimen should be collected 48 hours later and tested. Marlo 02-14-2025 CNPN Telephone (ENDLKW) SIMA KEEN ([id number]) 1985 F Date Time Provider Department 02/14/25 BOBBI DE LA PAZ During your visit today, we recorded the following information about you: Elyse Perez 02/14/2025 7:14 AM Signed Bobbi De La Paz MD P [facility] Clerical Pool please call this patient [...] (mouth or hand numbness or tingling). - fajvbln-vdhqeofpo-ilrlrwr D3 500 mg-5 mcg (200 unit) per [...] Encounter Status:Closed by ELYSE PEREZ on 02/14/25 [facility] Telephone (JOSEY) SIMA KEEN ([id number]) 1985 F Date Time Provider Department 02/14/25 JEYSON BUSTAMANTE During your visit today, we recorded the following information about you: IlirJohan 02/14/2025 11:00 AM Signed February 14, 2025 [id number] Patient Name: Sima Keen Contact Information: [phone] (home) [phone] (cell) Reason For Call: Patient is calling [...] (mouth or hand numbness or tingling). - arkfplc-rwjtrgfsj-fgoqfdl D3 500 mg-5 mcg (200 unit) per [...] Encounter Status:Closed by JOYA ESCOBAR on 02/14/25 [facility] Marlo 01-30-2025 [facility] Telephone (ENSPADMINI) SIMA KEEN ([id number]) 1985 F Date Time Provider Department 01/30/25 JEYSON BUSTAMANTE During your visit today, we recorded the following information about you: Allergies As of Date: 01/30/2025 Noted Allergy Reaction CEFACLOR 12/06/2024 2 - Rash Date Reviewed: 01/11/2025 Reviewed by: Sally Ellsworth RN - Fully Assessed Reason for Visit: Appointment [186] Cmt: Left a message for patient to call [phone] to schedule a Consult with a [facility] for MI Treatment for Thyroid Cancer [...] (mouth or hand numbness or tingling). - mmdxipd-qogtdtldu-rfucjfz D3 500 mg-5 mcg (200 unit) per [...] Encounter Status:Closed by EDITH HARMON on 01/30/25 [facility] Marlo 01-17-2025 [facility] Telephone (JOSEY) SIMA KEEN ([id number]) 1985 F Date Time Provider Department 01/17/25 JEYSON BUSTAMANTE During your visit today, we recorded the following information about you: Johan Velázquez 01/17/2025 3:34 PM Signed Shanna Abarca, Patient called and is wondering if she can get a return to work form can you help with this please? Call back [phone] Allergies As of Date: 01/17/2025 Noted Allergy [...] (mouth or hand numbness or tingling). - vfaprhv-ijqktecac-ygrtlcn D3 500 mg-5 mcg (200 unit) per [...] Status:Closed by JOHAN VELÁZQUEZ on 01/17/25 Normal [facility] Calcium SerPl-mCncon 025 Calcium [Mass/Vol] 8.8 mg/dL Normal 8.5-10.2 [facility] Comment on above: Order Comment: Speci men Type: BLOOD SPECIMEN [facility] Facility[facility] Address: [address] [place] [address] Performed By: #### 1 7861-6 #### [facility] CLIA [id number] [place] [address] [place] PTH-Intact SerPl-mCncon 12-18 Parathyrin.intact [Mass/Vol] 31 pg/mL Normal 15-65 [facility] Comment on above: Order Comment: Speci men Type: BLOOD SPECIMEN Ordering Facility[facility] Address: [place] [address] Performed By: #### 2 731-8 #### [facility] CLIA [id number] [place] [address] OF [facility] ANES POSTPROC EVALon 025 ANES POSTPROC EVAL HNO ID: [id number] Author: SAMUEL MATUTE MD Service: Anesthesiology Author Type: Anesthesiologist Type: Anesthesia Postprocedure Evaluation Filed: 01/11/2025 16:47 Note Text: POST ANESTHESIA EVALUATION NOTE : 1985 Procedure Summary Date: 01/11/25 Room / Location: [place] [address] / OR Anesthesia Start: 1232 Anesthesia Stop: [...] January 11, 2025 TIME: 4:47 PM CSN: [id number] [facility] ANES PRE-OPon 01-11-2025 ANES PRE-OP HNO ID: [id number] Author: PABLO BRAY MD Service: Anesthesiology Author [...] January 11, 2025 TIME: 11:25 AM CSN: [id number] [facility] BRIEF OP NOTon 01-11-2025 BRIEF OP NOT HNO ID: [id number] Author: DAVID WINTER MD Service: Endocrine Surgery Author Type: Physician Type: Brief Op Note Filed: 01/11/2025 16:23 Note Text: Brief Operative Note Patient Name: Sima Keen LOG ID: [id number] Surgery/Procedure Date: 01/11/2025 Surgeon(s)/Proceduralist(s) and Kelp Or Seagrass Gatherer(s): Surgeons and Role: * Jeyson Bustamante MD [...] MD DATE: 01/11/25 TIME: 4:22 PM Normal [facility] OPERATIVE NOon 01-11-2025 OPERATIVE NO HNO ID: [id number] Author: JEYSON BUSTAMANTE MD Service: Endocrine Surgery Author Type: Physician Type: Operative Report Filed: 01/15/2025 08:13 Note Text: [facility] - Operative Report SIMA KEEN : 1985 AGE: 39. 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 POSTOPERATIVE DIAGNOSIS: Same SURGEON: Jeyson Bustamante MD TELECOM ENGINEER: Dr. David Winter. SURGERY/PROCEDURE: Reoperative right central neck dissection, left thyroid lobectomy, intraoperative ultrasonography. ANESTHESIA: General. [facility] . COMPLICATIONS: None. ESTIMATED BLOOD LOSS: [...] right thyroid lobectomy that was performed at [facility] on 12/28/2020. Final pathology demonstrated 1.8 cm [...] of undetermined significance. These were submitted for [facility] molecular profiling and were both in the [...] OF PROCEDURE: Pa (more content not included)... [facility] Pathology biopsy report Torito (Tiss)on 01-11-2025 AP DISCLAIMER [facility] Comment on above: Order Comment: Speci violetta Type: TISSUE SPECIMEN [facility] Facility[facility] Address: [address] [place] [address] Result Comment: Dennis ni Developed Test (LDT) Disclaimer: Performance characteristics of immunohistochemical, immunofluorescent, and chromogenic in-situ hybridization tests have been determined by the performing laboratory within [facility]'s [facility] Pathology and Laboratory Medicine Department ([facility], [facility], [facility], [facility], [facility], [facility], or [facility]) in a manner consistent with CLIA requirements. One or more of these tests may not have been cleared or approved by the FDA. [facility] is regulated under CLIA as qualified to perform high-complexity testing. These tests are used for clinical purposes. These should not be regarded as investigational or for research. Positive and negative controls stain appropriately. Performed By: #### 6 6121-5 #### [facility] CLIA [id number] [address] [place] [address] LABORATORY CLIA [id number] [address] [place] [address] [place] CASE REPORT [facility] Comment on above: Order Comment: Speci men Type: TISSUE SPECIMEN [facility] Facility: [facility] Address: [address] [place] [address] Result Comment: Surg [facility] Pathology Report Case: [id number] Authorizing Provider: Jeyson Bustamante MD Collected: 01/11/2025 01:05 PM Ordering Location: [facility] Surgery Received: 01/11/2025 01:40 PM Pathologist: [...] contents Performed By: #### 6 6121-5 #### [facility] CLIA [id number] [address] [place] [address] LABORATORY CLIA [id number] [address] [place] [address] CLINICAL HISTORY [facility] Comment on above: Order Comment: Speci men Type: TISSUE SPECIMEN [facility]: [facility] Address: [address] [place] [address] Result Comment: Pre- op diagnosis: Papillary carcinoma of thyroid (HCC) [C73] Performed By: #### 6 6121-5 #### [facility] CLIA [id number] [address] [place], [place] [address] CLIA [id number] [address] [place] [address] [place] DIAGNOSIS COMMENT The largest involved lymph node measures 2.5 cm in greatest dimension (part B) and show focal extranodal extension (1 mm). [facility] Comment on above: Order Comment: Speci men Type: TISSUE SPECIMEN Ordering Facility: [facility] Address: [address] [place] [address] Performed By: #### 6 6121-5 #### [facility] CLIA [id number] [address] [place] [address] LABORATORY CLIA [id number] [address] [place] [address] [place] FINAL DIAGNOSIS [facility] Comment on above: Order Comment: Speci men Type: TISSUE SPECIMEN Ordering Facility: [facility] Address: [address] [place] [address] Result Comment: A. S kin, scar neck [...] EDT Performed By: #### 6 6121-5 #### [facility] CLIA [id number] [address] [place] [address] [place] [facility] CLIA [id number] [address] [place] [address] STATES OF [facility] FINAL PERFORMING LAB [facility] Comment on above: Order Comment: Speci men Type: TISSUE SPECIMEN Ordering Facility: [facility] Address: [address] [place] [address] Result Comment: Diag nostic interpretation performed at: [facility], [address] [place], [place] [id number] CLIA# [id number] Engineering Scientist: Nilton Le MD Performed By: #### 6 6121-5 #### [facility] CLIA [id number] [address] [place] [address] [place] [facility] CLIA [id number] [address] [place] [address] [place] GROSS DESCRIPTION A. Skin, Scar [facility] Comment on above: Order Comment: Speci men Type: TISSUE SPECIMEN [facility]ing [facility]: [facility] Address: [address] [place] [address] Result Comment: Rece ived in formalin labeled scar neck incision is a an oriented skin ellipse measuring 4.0 x 0.7 cm and excised to a maximum depth of 0.7 cm. The skin surface shows a linear, judge-white discolored area consistent with previous scar measuring 2.5 cm in length by 0.1 cm in diameter. Sectioning through this area shows judge-white fibrotic cut surfaces. Geriatric Assistant tissue is submitted in A1. B. Soft Tissue, Mass, Resection Received fresh for intraoperative consultation is a single piece of red-brown soft tissue measuring 2.5 x 2.3 x 1.5 cm. It is serially sectioned and a ocean import representative section is submitted as FSB1. A touch prep also performed. The remaining tissue is submitted in B2-B3 for routine processing. C. Soft Tissue, Mass, Resection Received fresh for intraoperative consultation is a single piece of judge-red soft tissue measuring 1.4 x 0.8 x 0.7 cm. A ocean import representative section is submitted as FSC1. 2 touch preps also performed. The remaining tissue is submitted in C2 for routine processing. Gross examination performed at [facility], [address] [address] , [address] [id number] Gross examination performed at [facility], [address] [place] [address] MSL/CORY 01/12/25 8:45 AM D. Thyroid, Left, Lobe Labeled: ???Thyroid, left, lobe??? Received: In formalin Specimen type: Lobectomy without attached skeletal muscle, lymph nodes, or large vessels Oriented: Now Weight: 19.6 grams Size: 6.0 x 3.5 x 2.0 cm Left lobe: 6.0 x 3.0 x 1.5 cm Isthmus: 2.5 x 1.5 x 0.8 Ink code: Blue- External surface of the left lobe [place] - Resection margin of isthmus Sectioning: The [...] candidates, in toto [place] [address] MSL/CORY 01/12/25 12:59 PM Performed By: #### 6 6121-5 #### [facility] CLIA [id number] [address] [place] [address] STATES OF [facility] CLIA [id number] [address] [place] [address] STATES OF [facility] INTRAOPERATIVE DIAGNOSIS Normal [facility] Comment on above: Order Comment: Speci men Type: TISSUE SPECIMEN Ordering Facility: [facility] Address: [address] [place] [address] Result Comment: B. S oft Tissue, Mass, Resection FSB1 and touch prep: Atypical thyroid follicles and adjacent lymphoid tissue, cannot exclude carcinoma (Dr. Dos Santos/Saira/Jonel, using telepathology) C. Soft Tissue, Mass, Resection FSC1 and touch preps: Atypical thyroid follicles including within lymphoid tissue, cannot exclude carcinoma (Dr. Dos Santos/Saira/Jonel, using telepathology) Intraoperative diagnosis performed at [facility], [address] [place] [address] CLIA# [id number] Performed By: #### 6 6121-5 #### [facility] CLIA [id number] [address] [place] [address] [place] [facility] CLIA [id number] [address] [place] [address] [place] HISTORY PHYSICALon 5 HISTORY PHYSICAL HNO ID: [id number] Author: DINA NAJERA APRN.RN [facility] Service: ? Author Type: Nurse Practitioner Type: [...] visit. Either the patient or their legal ocean import representative has been informed of the risks [...] large neck Non-male patient STOP-Bang Score: 1 [id number] Score: Age: <65 Sex: female CHF history: No Hypertension history: No Stroke/TIA/thromboembolism history: No Vascular disease history: No Diabetes history: No [id number]-MCUa Score: 1 ARISCAT Score: Age: <=50 Preoperative [...] back to (more content not included)... Normal [facility] Basic metabolic 2000 panelon 12-06-2024 Anion gap [Moles/Vol] 10 mmol/L Normal 8-15 [facility] Comment on above: Order Comment: Speci men Type: BLOOD SPECIMENOrdering Facility: [facility] Address: [address] [place] [address] Performed By: #### 2 4321-2, 3 ####[facility] [id number] [place] [address] [place] Calcium [Mass/Vol] 9.3 mg/dL Normal 8.5-10.2 [facility] Comment on above: Order Comment: Speci men Type: BLOOD SPECIMENOrdering Facility: [facility] Address: [address] [place] [address] Performed By: #### 2 4321-2, 3 ####[facility] [id number] [place] [address] [place] Chloride [Moles/Vol] 104 mmol/L Normal 98-107 [facility] Comment on above: Order Comment: Speci men Type: BLOOD SPECIMENOrdering Facility: [facility] Address: [address] [place] [address] Performed By: #### 2 4321-2, 3 ####[facility] [id number] [place] [address] [place] CO2 [Moles/Vol] 25 mmol/L Normal 22-30 [facility] Comment on above: Order Comment: Speci men Type: BLOOD SPECIMENOrdering Facility: [facility] Address: [address] [place] [address] Performed By: #### 2 4321-2, 6-3 ####[facility] [id number] [address] [address] [place] Creatinine [Mass/Vol] 0.57 mg/dL Low 0.58-0.96 [facility] Comment on above: Order Comment: Xavier shipley Type: BLOOD SPECIMENOrdering Facility: [facility] Address: [address] [place] [address] Performed By: #### 2 4321-2, 3015-3 ####[facility] [id number] [address] [place] Creatinine and Glomerular filtration rate.predicted panel (S/P/Bld) 119 mL/min/1.73m??? Normal >=60 [facility] Comment on above: Order Comment: Xavier shipley Type: BLOOD SPECIMENOrdering Facility: [facility] Address: [address] [place] [address] Result Comment: Nemo mated Glomerular Filtration Rate [...] GFR. Performed By: #### 2 432-2, 3015-3 ####[facility] [id number] [address] [address] [place] Glucose [Mass/Vol] 95 mg/dL Normal 74-99 [facility] Comment on above: Order Comment: Xavier shipley Type: BLOOD SPECIMENOrdering Facility: [facility] Address: [address] [place] [address] Result Comment: The Stateless Diabetes Association (ADA) provides guidance for cutoff [...] Standards of Medical Care in Diabetes 2016, Stateless Diabetes Association. Diabetes Care. 2016.39(Suppl 1). Performed By: #### 2 4321-2, 3015-3 ####[facility] [id number] [address] [address] [place] Potassium [Moles/Vol] 4.3 mmol/L Normal 3.7-5.1 [facility] Comment on above: Order Comment: Xavier shipley Type: BLOOD SPECIMENOrdering Facility: [facility] Address: [address] [place] [address] Performed By: #### 2 4320-, 3 ####[facility] [id number] [address] [place] [address] [place] Sodium [Moles/Vol] 139 mmol/L Normal 136-144 [facility] Comment on above: Order Comment: Xavier shipley Type: BLOOD SPECIMENOrdering Facility: [facility] Address: [address] [place] [address] Performed By: #### 2 4320-, 3 ####[facility] [id number] [address] [address] [place] Urea nitrogen [Mass/Vol] 6 mg/dL Low 7-21 [facility] Comment on above: Order Comment: Parisai men Type: BLOOD SPECIMENOrdering Facility: [facility] Address: [address] [place] [address] Performed By: #### 2 4320-2, 3015-3 ####[facility] [id number] [address] [place] [address] [place] CBC panel Auto (Bld)on 12-06 Erythrocyte distribution width (RBC) [Ratio] 12.5 % Normal 11.5-15.0 [facility] Comment on above: Order Comment: Speci men Type: BLOOD SPECIMENOrdering Facility: [facility] Address: [address] [place] [address] Performed By: #### 5 8410-2 ####[facility] [id number] [address] STATES [facility] Hematocrit (Bld) [Volume fraction] 44.5 % Normal 36.0-46.0 [facility] Comment on above: Order Comment: Speci men Type: BLOOD SPECIMENOrdering Facility: [facility] Address: [address] [place] [address] Performed By: #### 5 8410-2 ####[facility] [id number] [address] [place] Hemoglobin (Bld) [Mass/Vol] 14.9 g/dL Normal 11.5-15.5 [facility] Comment on above: Order Comment: Speci men Type: BLOOD SPECIMENOrdering Facility: [facility] Address: [address] [place] [address] Performed By: #### 5 8410-2 ####[facility] [id number] [place] [address] [place] MCH (RBC) [Entitic mass] 30.0 pg Normal 26.0-34.0 [facility] Comment on above: Order Comment: Speci men Type: BLOOD SPECIMENOrdering Facility: [facility] Address: [address] [place] [address] Performed By: #### 5 8410-2 ####[facility] [id number] [place] [address] [place] MCHC (RBC) [Mass/Vol] 33.5 g/dL Normal 30.5-36.0 [facility] Comment on above: Order Comment: Speci men Type: BLOOD SPECIMENOrdering Facility: [facility] Address: [address] [place] [address] Performed By: #### 5 8410-2 ####[facility] [id number] [place] [address] [place] MCV (RBC) [Entitic vol] 89.7 fL Normal 80.0-100.0 [facility] Comment on above: Order Comment: Speci men Type: BLOOD SPECIMENOrdering Facility: [facility] Address: [address] [place] [address] Performed By: #### 5 8410-2 ####[facility] [id number] [place] [address] [place] Nucleated RBC (Bld) [#/Vol] 10*3/uL Normal <0.01 [facility] Comment on above: Order Comment: Speci men Type: BLOOD SPECIMENOrdering Facility: [facility] Address: [address] [place] [address] Performed By: #### 5 8410-2 ####[facility] [id number] [place] [address] [place] Platelet mean volume (Bld) [Entitic vol] 9.8 fL Normal 9.0-12.7 [facility] Comment on above: Order Comment: Speci men Type: BLOOD SPECIMENOrdering Facility: [facility] Address: [address] [place] [address] Performed By: #### 5 8410-2 ####[facility] [id number] [place] [address] [place] Platelets (Bld) [#/Vol] 276 10*3/uL Normal 150-400 [facility] Comment on above: Order Comment: Speci men Type: BLOOD SPECIMENOrdering Facility: [facility] Address: [address] [place] [address] Performed By: #### 5 8410-2 ####[facility] [id number] [place] [id number] [place] RBC (Bld) [#/Vol] 4.96 10*6/uL Normal 3.90-5.20 [facility] Comment on above: Order Comment: Speci men Type: BLOOD SPECIMENOrdering Facility: [facility] Address: [address] [place] [address] Performed By: #### 5 8410-2 ####[facility] [id number] [place] [address] [place] WBC (Bld) [#/Vol] 8.00 10*3/uL Normal 3.70-11.00 [facility] Comment on above: Order Comment: Speci men Type: BLOOD SPECIMENOrdering Facility: [facility] Address: [address] [place] [address] Performed By: #### 5 8410-2 ####[facility] [id number] [place] [id number] [facility] Jose Maria 12-06-2024 CNOV Office Visit (JOSEY ) SIMA KEEN ([id number]) 1985 F Date Time Provider Department 12/06/24 12:30 PM JEYSON BUSTAMANTE During your visit today, we recorded the following information about you: Pulse Blood pressure Weight Height 75/minute 112/74 71.3 kg 1.711 m Last Period 12/05/24 Donavan Cerda MA 12/06/2024 12:26 PM Signed Thank you for choosing the [facility] Department of Endocrinology, Diabetes and Metabolism. Did you know that you need to call 48 hours in advance of your scheduled visit, if you are unable to make your appointment? The Endocrinology and Metabolism [facility] thanks you for your commitment, because patients not showing to their appointment results in a lost opportunity for patients to receive [facility] health care at the [facility]. To Cancel an appointment, please choose one of the following: - Call the Appointment Call Center at [phone] - From [employer], Go to Appointments - Cancel Appts If cancelling, consider your need to reschedule to prevent further delays in your care. To Schedule an appointment, please choose one of the following: - Call the Appointment Call Center at [phone] - From [employer], Go to Appointments - Request an Appt [...] left in place. 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 Those slides have been reviewed here at the [facility] and feel that some of the [...] have been reviewed viewed here at the [facility] and agree with the interpretation of atypia [...] on froze (more content not included)... Normal [facility] TSH SerPl-aCncon 12-06-2024 TSH Qn 2.250 m[IU]/L Normal 0.270-4.20 0 [facility] Comment on above: Order Comment: Speci men Type: BLOOD SPECIMENOrdering Facility: [facility] Address: [address] [place] [address] Result Comment: If t he patient is , TSH reference range varies by gestational period: First Trimester (weeks 9-12): 0.180-2.990 mIU/L Second Trimester: 0.110-3.980 mIU/L Third Trimester: 0.480-4.710 mIU/L Andrew Garcia et al. A Practical Approach for the Verifications and Determination of Site- and Trimester-Specific Reference Intervals for Thyroid Function tests in . Thyroid, 2019:29:3:412-420. Isaac Yip, et al. 2017 Guidelines of the Stateless Thyroid Association for the Diagnosis and Management of Thyroid Disease during and the . Thyroid, 2017:27:3:315-389. Performed By: #### 2 4321-2, 3016-3 ####[facility] [id number] [place] [id number] [place] [facility] Thyroglobulin and Thyrogobul in Ab panelon 12-06-2024 Thyroglobulin Ab Qn 3.4 [IU]/mL Normal <4.0 [facility] Comment on above: Order Comment: Xavier shipley Type: BLOOD SPECIMENOrdering Facility: [facility] Address: [address] [place] [address] Result Comment: The Thyroglobulin Antibody test was performed using the [employer] DXI paramagnetic particle chemiluminescent immunoassay method. Results obtained with different assay methods or kits cannot be used interchangeably. Performed By: #### 5 7780-9 ####[facility] [id number] [place] [id number] [place] THYROGLOBULIN, SERUM 27.6 ng/mL Normal 1.6-50.0 [facility] Comment on above: Order Comment: Xavier shipley Type: BLOOD SPECIMENOrdering Facility: [facility] Address: [address] [place] [address] Result Comment: The Thyroglobulin test was performed using the [employer] Unicel DXI paramagnetic particle chemiluminescent immunoassay method. Results obtained with different assay methods or kits cannot be used interchangeably. Performed By: #### 5 7780-9 ####[facility] [id number] [address] [address] [place] US Thyroid glandon [facility] Radiology Study observation (narrative) [facility] OUTSIDE CYTOLOGY SLIDE REVIE Won 05-12-2025 AP DISCLAIMER Normal [facility] Comment on above: Order Comment: Speci men Type: FORMALIN-FIXED PARAFFIN-EMBEDDED TISSUE SPECIMENOrdering Facility: AP Outside Review Address: , , Result Comment: Dennis ni Developed Test (LDT) Disclaimer: Performance characteristics of immunohistochemical, immunofluorescent, and chromogenic in-situ hybridization tests have been determined by the performing laboratory within [facility]'s [facility] Pathology and Laboratory Medicine Department ([facility], [facility], [facility], [facility], [facility], [facility], or [facility]) in a manner consistent with CLIA requirements. One or more of these tests may not have been cleared or approved by the FDA. RT-PLM is regulated under CLIA as qualified to perform high-complexity testing. These tests are used for clinical purposes. These should not be regarded as investigational or for research. Positive and negative controls stain appropriately. Performed By: #### L [id number] ####[facility] [id number] [place] [address] [place] CASE REPORT Normal [facility] Comment on above: Order Comment: Speci men Type: FORMALIN-FIXED PARAFFIN-EMBEDDED TISSUE SPECIMENOrdering Facility: AP Outside Review Address: , , Result Comment: [facility] Cytology Report Case: [id number] Authorizing Provider: Jeyson Bustamante MD Collected: 11/27/2024 09:38 PM Ordering Location: [facility] Received: 11/27/2024 09:35 PM [facility] Pathologist: Anabel Suarez MD Specimens: A) - Slide(s), RIGHT SUPERIOR LATERAL THYROID NODULE, FINE NEEDLE ASPIRATION, 6 OUTSIDE SLIDES, ([id number] A), 10/04/2024 B) - Slide(s), RIGHT INFERIOR MEDIAL THYROID NODULE, FINE NEEDLE ASPIRATION, 6 OUTSIDE SLIDES, ([id number] B), 10/04/2024 Performed By: #### L [id number] ####[facility] [id number] [address] [address] [place] DIAGNOSIS COMMENT Aspirates from both thyroid nodules are limited by low cellularity and air drying. Both show cytologic atypia which is more apparent in the sample from the right inferior medial thyroid FNA (part B). The atypical cells in this sample are present in the background of a cyst. Normal [facility] Comment on above: Order Comment: Speci men Type: FORMALIN-FIXED PARAFFIN-EMBEDDED TISSUE SPECIMENOrdering Facility: AP Outside Review Address: , , Performed By: #### L [id number] ####[facility] [id number] [address] FINAL DIAGNOSIS Normal [facility] Comment on above: Order Comment: Speci men [...] at 1520 EDT Performed By: #### L [id number] ####[facility] [id number] [address] FINAL PERFORMING LAB Normal [facility] Comment on above: Order Comment: Speci men Type: FORMALIN-FIXED PARAFFIN-EMBEDDED TISSUE SPECIMENOrdering Facility: AP Outside Review Address: , , Result Comment: Tech nical component, customer servicer screening performed at: [facility], [address] [place] [address] CLIA: [id number] Diagnostic interpretation performed at: [facility], [address] [place], [place] [address] CLIA# [id number] Engineering Scientist: Nilton Le MD Performed By: #### L [id number] ####[facility] [id number] [address] [address] [place] OUTSIDE SURG PATH SLIDE REVI EWon 11-27-2024 AP DISCLAIMER Normal [facility] Comment on above: Order Comment: Speci men Type: FORMALIN-FIXED PARAFFIN-EMBEDDED TISSUE SPECIMENOrdering Facility: AP Outside Review Address: , , Result Comment: Dennis ni Developed Test (LDT) Disclaimer: Performance characteristics of immunohistochemical, immunofluorescent, and chromogenic in-situ hybridization tests have been determined by the performing laboratory within [facility]'s [facility] Pathology and Laboratory Medicine Department ([facility], [facility], [facility], [facility], [facility], [facility], or [facility]) in a manner consistent with CLIA requirements. One or more of these tests may not have been cleared or approved by the FDA. RT-PLM is regulated under CLIA as qualified to perform high-complexity testing. These tests are used for clinical purposes. These should not be regarded as investigational or for research. Positive and negative controls stain appropriately. Performed By: #### L [id number] ####[facility] [id number] [address] [address] [place] CASE REPORT Normal [facility] Comment on above: Order Comment: Speci men Type: FORMALIN-FIXED PARAFFIN-EMBEDDED TISSUE SPECIMENOrdering Facility: AP Outside Review Address: , , Result Comment: [facility] Pathology Report Case: [id number] Authorizing Provider: Jeyson Bustamante MD Collected: 11/27/2024 10:53 PM Ordering Location: [facility] Received: 11/27/2024 10:53 PM [facility] Pathologist: Latrell Mantilla MD Specimen: Slide(s), 28 SLIDES, [id number] Performed By: #### L [id number] ####[facility] [id number] [address] [address] [place] DIAGNOSIS COMMENT The [...] case and agrees with the diagnosis. Normal [facility] Comment on above: Order Comment: Speci men Type: FORMALIN-FIXED PARAFFIN-EMBEDDED TISSUE SPECIMENOrdering Facility: AP Outside Review Address: , , Performed By: #### L [id number] ####[facility] [id number] [address] FINAL DIAGNOSIS Normal [facility] Comment on above: Order Comment: Speci men Type: FORMALIN-FIXED PARAFFIN-EMBEDDED TISSUE SPECIMENOrdering Facility: AP Outside Review Address: , , Result Comment: A. R ight thyroid lobe, lobectomy and isthmusectomy ([id number]): - Invasive papillary thyroid carcinoma, classic (conventional) subtype with fibrosis, 1.8 cm (See comment). at 1447 EDT Performed By: #### L [id number] ####[facility] [id number] [address] FINAL PERFORMING LAB Normal [facility] Comment on above: Order Comment: Speci men Type: FORMALIN-FIXED PARAFFIN-EMBEDDED TISSUE SPECIMENOrdering Facility: AP Outside Review Address: , , Result Comment: Diag nostic interpretation performed at: [facility], [facility], [place] [id number] CLIA# [id number] Engineering Scientist: Nilton Le MD Performed By: #### L [id number] ####[facility] [id number] [address] [facility] Marlo 11-22-2024 CNPN Telephone (JOSEY) SIMA KEEN ([id number]) 1985 F Date Time Provider Department 11/22/24 [...] Thyroid Nodule PATIENT DEMOGRAPHICS Name: Sima Keen [facility]#: [id number] : 1985 AGE: [age] year old Contact Numbers: Home: (home) Work: There is no work phone number on file. PATIENT PHYSICIAN INFORMATION Referring Doctor: Dr.Michael Cano Address: Phone: Towel Cabinet Repairer: Dr.Michael Cano Address: Phone: PCP: To use this Smartlink, specify the provider ID whose address you want to display, e.g., .PROVADDR[1 (where 1 is the provider ID). PAST TREATMENT Office notes: NONE AVAILABLE Medications: NONE THAT APPLY Pre-Visit Testing STUDY/TEST DATE ORDERED/REQUESTED DATE RECEIVED/COMPLETED ENTIRE PANEL TSH Per pt. Done 08/2024 FREE T4 FREE T3 Imaging Reports: SEE [facility] CD of Images: SEE [facility] FNA: YES 2020 FNA Slides: Has the patient ever had thyroid or parathyroid surgery before: YES PARTIAL THYROIDECTOMY Operative Reports: NONE AVAILABLE Pathology Reports: NONE AVAILABLE Allergies As of Date: 11/22/2024 (Not on File) Date Reviewed: Never Reviewed Reason for Visit: Consult [173] Cmt: FACE SHEET Problem List As Of Date: 11/22/2024 (None) Encounter Status:Closed by LUISA WHITE on 11/22/24 [facility] Marlo 10-26-2024 CNPN Telephone (ENSUMN) LEONILASIMA SEVILLA ([id number]) 1985 F Date Time Provider Department 10/26/24 [...] Encounter Status:Closed by JOYA ESCOBAR on 10/26/24 [facility] EGD Reporton 10-26-2024 EGD Report [facility] Medical Records Department [address] [place] [address] EGD Report MR#: [id number] Acct: [id number] Name: SIMA KEEN Rep #: [id number] : 1985 39 From: David Cano MD PCP: ANIBAL Workman Status:[facility] Patient Name: Sima Keen Procedure Date: [...] pathology results. Procedure Code(s): --- Professional --- 13228, Esophagogastroduodenoscopy, flexible, transoral; with biopsy, single or multiple Diagnosis Code(s): --- Professional --- K31.89, Other diseases of stomach and duodenum K29.70, Gastritis, unspecified, without bleeding K22.89, Other specified disease of esophagus R13.10, Dysphagia, unspecified K20.0, Eosinophilic esophagitis CPT copyright 2021 [employer]eless Medical [employer]. All rights reserved. The codes documented in this report are preliminary and upon clamp truck driver review may be revised to meet current compliance requirements. David Cano MD 10/26/2024 10:21:30 AM This report has been signed electronically. Number of Addenda: 0 Note Initiated On: 10/26/2024 9:27 AM 10/26/24 1021 Date David Cano MD Cosigner Signature: Date (if indicated) CC: Dr. David Cano MD; ANIBAL Workman Date Dictated: 10/26/24926 Date Transcribed: Oil Field Tester: MIGDALIA Signed [facility] Immunohistochemical Stainson 10-26-2024 Immunohistochemical Stains Patient Age/Sex Location Account Attending Physician SIMA KEEN/F EN [id number] Dr. David Cano MD Specimen: [id number] Received: 10/26/24 Status: AZRA Gale Num: [id number] Spec Type: EGD BIOPSY Subm Dr: Dr. [...] developed and their performance characteristics determined by [facility]. They may not have been cleared [...] Account Attending Physician SIMA KEEN 39/F EN [id number] Dr. David Cano MD C. Received in [...] Submitted in toto in D1. STEPHIEB 10/27/2024 CPT:42080m1,54680 Patient Age/Sex Location Account Attending Physician SIMA KEEN 39/F EN [id number] Dr. David Cano MD Signed (signature on file) Dr. Nelda Reilly DO 10/27/24 1414 [facility] Comment on above: Performed By: #### P [facility] #### [facility] [address] [place], [address] MR/POSTOP.ANEon 10-26-2024 MR/POSTOP.ANE [facility] Medical Records Department [address] [place] [address] Anesthesia Postop Eval I 10/26/24 1029 MR#: [id number] Acct: [id number] Name: SIMA KEEN Rep #: [id number] : 1985 39 From: Vince Gomez PCP: ANIBAL Workman Status:REG SDC Y Race: UTD Location: [place] [address] Anesthesia: Postop Eval I Current Vital Signs [...] Vince Naranjo Signature: Date CC: Signed Normal [facility] MR/AYIKMAPR1ug 10-26-2024 MR/POSTOPAN2 [facility] Medical Records Department [address] [place] [address] Anesthesia Postop Eval II 10/26/24 1051 MR#: [id number] Acct: [id number] Name: SIMA KEEN Rep #: [id number] : 1985 39 From: Elliott Reynaga MD PCP: ANIBAL Workman Status:REG SDC Y Race: UTD Location: [place] [address] Anesthesia Postop Eval I Sum Postop Eval [...] MD Cosigner Signature: Date CC: Signed Normal [facility] ,Urineon 10-26-2024 Beta HCG ( test) Ql (U) Negative Normal [facility] Comment on above: Result Comment: Very dilute urine specimens, as indicated by a low specific gravity, may not contain ocean import representative levels of hCG. If is still suspected, a first morning urine specimen should be collected 48 hours later and tested. Performed By: #### L 400.7600 #### [facility] Laboratory [facility] [place], [address] Urine testOrdered By: Pete Faria on 10-26-2024 HCG ( test) Ql (U) Negative [facility] Comment on above: Very dilute urine sp ecimens, as indicated by a low specificgravity, may not contain ocean import representative levels of hCG. If is still suspected, a first morning urinespecimen should be collected 48 hours later and tested. Head/Neck Soft Tissueon 04-0 Head/Neck Soft Tissue [place] [address] [place] [address] Head/Neck Soft Tissue MR#: [id number] Acct: [id number] Name: SIMA KEEN Rep #: [id number] : 1985 F 39 From: Don Chaudhary DO PCP: ANIBAL Workman Status: REG CLI Study: Head/Neck Soft Tissue Date of Exam: 10/20/24 Exam# [id number] Ordering Dr: David Cano MD EXAM: Ultrasound [...] measurements and location given above. Reading Location: [facility] CC: Dr. David Cano MD; ANIBAL Workman Oil Field Tester: Signed Normal [facility] Non-gynecologic cytology rep ortOrdered By: Ramsey Sinclair on 10-10-2024 Study report [facility] Other Phone: Special Stain Group IIon Special Stain Group II Patient Age/Sex Location Account Attending Physician SIMA KEEN 39/F LABSPEC [id number] Dr. David Cano MD Specimen: [id number] Received: 10/04/24 Status: AZRA Gale Num: [id number] Spec Type: Fluid Subm Dr: Dr. David [...] nodule. Submitted for cytology preparation. 10/05/2024 CPT: 55679 x2, TC:5 ADDENDUM Patient Age/Sex Location Account Attending Physician SIMA KEEN 39/F LABSPEC [id number] Dr. David Cano MD ADDENDUM (Continued) Addendum 2 Entered: 11/30/24-1002 This addendum is added to incorporate an outside pathology consultation report. The case was examined at [facility] by Dr. Suarez (#[id number]) and the following diagnosis was rendered. A. [...] INTERPRETATION: The result of this 2.2 cm Lowell III nodule A is Afirma GSC suspicious [...] Dr. Ramsey Sinclair MD 10/10/24 1332 Normal [facility] Comment on above: Performed By: #### P SSII #### [facility] [address] [place], [place], [id number] Surgery Visit Reporton 10-04 Surgery Visit Report [facility] [address] [place] [address] OFFICE VISIT Date of Service: 10/04/24 MR#: [id number] Acct: [id number] Name: SIMA KEEN Rep #: [id number] : 1985 Provider: Dr. David jones MD Age/Sex: 39/F Location: [facility] Status: Signed Intake Vital Signs 12/09/23 [...] and anxious (more content not included)... Normal [facility] Thyroidon 09-04-2024 Thyroid [facility] [address] [place] [address] Thyroid MR#: [id number] Acct: [id number] Name: SIMA KEEN Rep #: [id number] : 1985 F 39 From: Edgar Alvarez MD PCP: ANIBAL Workman Status: REG CLI Study: Thyroid Date of Exam: 09/04/24 Exam# [id number] Ordering Dr: Alanis Batista PROCEDURE: THYROID REASON [...] size Reading Location: [facility] CC: ANIBAL Workman Oil Field Tester: Signed Normal [facility] CBC (INCLUDES DIFF/PLT)on Basophils (Bld) [#/Vol] 0.057 10*3/uL Normal 0-200 [facility] Comment on above: Performed By: #### 6 399, 899, 36948 #### [facility] of [place] [address] Software Engineer Intern: Mayur Barahona MD Basophils/100 WBC (Bld) 0.7 % Normal [facility] Comment on above: Performed By: #### 6 399, 899, 05648 #### [facility] of [place] [address] Software Engineer Intern: Mayur Barahona MD Eosinophils (Bld) [#/Vol] 0.356 10*3/uL Normal 15-500 [facility] Comment on above: Performed By: #### 6 399, 899, 40479 #### [facility] of [place] [address] Software Engineer Intern: Mayur Barahona MD Eosinophils/100 WBC (Bld) 4.4 % Normal [facility] Comment on above: Performed By: #### 6 399, 899, 18279 #### [facility] of [place] [address] Software Engineer Intern: Mayur Barahona MD Erythrocyte distribution width (RBC) [Ratio] 11.5 % Normal 11.0-15.0 [facility] Comment on above: Performed By: #### 6 399, 899, 28730 #### [facility] of [place] [address] Software Engineer Intern: Mayur Barahona MD Hematocrit (Bld) [Volume fraction] 43.1 % Normal 35.0-45.0 [facility] Comment on above: Performed By: #### 6 399, 899, 93531 #### [facility] of [place] [address] Software Engineer Intern: Mayur Barahona MD Hemoglobin (Bld) [Mass/Vol] 14.5 g/dL Normal 11.7-15.5 [facility] Comment on above: Performed By: #### 6 399, 899, 14173 #### [facility] of [address], [address] [place] [address] Software Engineer Intern: Mayur Barahona MD Lymphocytes (Bld) [#/Vol] 2.649 10*3/uL Normal 850-3900 [facility] Comment on above: Performed By: #### 6 399, 899, 33159 #### [facility] of [address], [address] [place] [address] Software Engineer Intern: Mayur Barahona MD Lymphocytes/100 WBC (Bld) 32.7 % Normal [facility] Comment on above: Performed By: #### 6 399, 899, 87700 #### [facility] of [address], [address] [place] [address] Software Engineer Intern: Mayur Barahona MD MCH (RBC) [Entitic mass] 29.7 pg Normal 27.0-33.0 [facility] Comment on above: Performed By: #### 6 399, 899, 15009 #### [facility] of [address], [address] [place] [address] Software Engineer Intern: Mayur Barahona MD MCHC (RBC) [Mass/Vol] 33.6 [...] condition. Performed By: #### 6 399, 899, 89920 #### [facility] of [place] [address] Software Engineer Intern: Mayur Barahona MD MCV (RBC) [Entitic vol] 88.3 fL Normal 80.0-100.0 [facility] Comment on above: Performed By: #### 6 399, 899, 08585 #### [facility] of [address], [address] [place] [address] Software Engineer Intern: Mayur Barahona MD Monocytes (Bld) [#/Vol] 0.535 10*3/uL Normal 200-950 [facility] Comment on above: Performed By: #### 6 399, 899, 97587 #### [facility] of [place] [address] Software Engineer Intern: Mayur Barahona MD Monocytes/100 WBC (Bld) 6.6 % Normal [facility] Comment on above: Performed By: #### 6 399, 899, 89648 #### [facility] of [place] [address] Software Engineer Intern: Mayur Barahona MD Neutrophils (Bld) [#/Vol] 4.504 10*3/uL Normal 7067-6011 [facility] Comment on above: Performed By: #### 6 399, 899, 29862 #### [facility] of [place] [address] Software Engineer Intern: Mayur Barahona MD Neutrophils/100 WBC (Bld) 55.6 % Normal [facility] Comment on above: Performed By: #### 6 399, 899, 71810 #### [facility] of [place] [address] Software Engineer Intern: Mayur Barahona MD Platelet mean volume (Bld) [Entitic vol] 10.1 fL Normal 7.5-12.5 [facility] Comment on above: Performed By: #### 6 399, 899, 81268 #### [facility] of [place] [address] Software Engineer Intern: Mayur Barahona MD Platelets (Bld) [#/Vol] 299 10*3/uL Normal 140-400 [facility] Comment on above: Performed By: #### 6 399, 899, 19169 #### [facility] of [place] [address] Software Engineer Intern: Mayur Barahona MD RBC (Bld) [#/Vol] 4.88 10*6/uL Normal 3.80-5.10 [facility] Comment on above: Performed By: #### 6 399, 899, 84271 #### [facility] [place] [address] Software Engineer Intern: Mayur Barahona MD WBC (Bld) [#/Vol] 8.1 10*3/uL Normal 3.8-10.8 [facility] Comment on above: Performed By: #### 6 399, 899, 94888 #### [facility] [place] [address] Software Engineer Intern: Mayur Barahona MD T3, FREE 08-31-2024 Free T3 [Mass/Vol] 3.4 pg/mL Normal 2.3-4.2 [facility] Comment on above: Performed By: #### 6 399, 899, 68996 #### [facility] [place] [address] Software Engineer Intern: Mayur Barahona MD T4, FREEon 08-31-2024 Free T4 [Mass/Vol] 1.2 ng/dL Normal 0.8-1.8 [facility] Comment on above: Performed By: #### 6 399, 899, 48265 #### [facility] [place] [address] Software Engineer Intern: Mayur Barahona MD TSHon 08-31-2024 TSH Qn 2.25 m[IU]/L Normal [facility] Comment on above: Result Comment: Refe rence Range > or = 20 Years 0.40-4.50 Ranges First trimester 0.26-2.66 Second trimester 0.55-2.73 Third trimester 0.43-2.91 Performed By: #### 6 399, 899, 95746 #### [facility] [place] [address] Software Engineer Intern: Mayur Barahona MD Laboratory - Chemistry and C hemistry - challengeon 08-30-2024 Free T3 [Mass/Vol] 3.4 pg/mL Normal 2.3 - 4.2 pg/mL [facility]. Free T4 [Mass/Vol] 1.2 ng/dL Normal 0.8 - 1.8 ng/dL [facility].; [facility] TSH Qn 2.25 m[IU]/L Normal [facility].; [facility], [facility] Laboratory - Hematology and Cell countson 08-30-2024 Basophils (Bld) [#/Vol] 0.057 10*3/uL Normal 0 - 200 {cells/uL} [facility].; [facility] Basophils/100 WBC (Bld) 0.7 % Normal [facility]; [facility], [facility] Eosinophils (Bld) [#/Vol] 0.356 10*3/uL Normal 15 - 500 {cells/uL} [facility].; [facility], [facility] Eosinophils/100 WBC (Bld) 4.4 % Normal [facility].; [facility] Erythrocyte distribution width (RBC) [Ratio] 11.5 % Normal 11.0 - 15.0 % [facility].; [facility], [facility] Hematocrit (Bld) [Volume fraction] 43.1 % Normal 35.0 - 45.0 % [facility].; [facility], [facility] Hemoglobin (Bld) [Mass/Vol] 14.5 g/dL Normal 11.7 - 15.5 g/dL [facility].; [facility], [facility] Lymphocytes (Bld) [#/Vol] 2.649 10*3/uL Normal 850 - 3900 {cells/uL} [facility].; [facility] Lymphocytes/100 WBC (Bld) 32.7 % Normal [facility].; [facility], [facility] MCH (RBC) [Entitic mass] 29.7 pg Normal 27.0 - 33.[address] [address] [facility].; [facility], [facility]. MCHC (RBC) [Mass/Vol] 33.6 g/dL Normal 32.0 - 36.0 g/dL [facility].; [facility] [employer] MCV (RBC) [Entitic vol] 88.3 fL Normal 80.0 - 100.0 fL [place] [employer].; [employer]. Monocytes (Bld) [#/Vol] 0.535 10*3/uL Normal 200 - 950 {cells/uL} [employer]. Monocytes/100 WBC (Bld) 6.6 % Normal [employer].; [employer]. Neutrophils (Bld) [#/Vol] 4.504 10*3/uL Normal 1500 - 7800 {cells/uL} [employer].; [employer]. Neutrophils/100 WBC (Bld) 55.6 % Normal [employer].; [employer]. Platelet mean volume (Bld) [Entitic vol] 10.1 fL Normal 7.5 - 12.5 fL [employer].; [employer]. Platelets (Bld) [#/Vol] 299 10*3/uL Normal 140 - 400 [employer].; [employer]. RBC (Bld) [#/Vol] 4.88 10*6/uL Normal 3.80 - 5.10 {Million/u L} [employer].; [employer]. WBC (Bld) [#/Vol] 8.1 10*3/uL Normal 3.8 - 10.8 [employer].; [employer]. Laboratory - Chemistry and C hemistry - challengeOrdered By: Elliott Reynaga on 05-13-2023 HCG ( test) Ql (U) Negative [facility] Comment on above: Very dilute urine sp ecimens, as indicated by a low specificgravity, may not contain ocean import representative levels of hCG. If is still suspected, a first morning urinespecimen should be collected 48 hours later and tested. Laboratory - Chemistry and C hemistry - challengeOrdered By: David Cano on 04-21-2023 T4 [Mass/Vol] 7.8 ug/dL 4.8-13.9 [facility] No Panel InformationOrdered By: David Cano on 04-21-2023 Free Triiodothyronine (T3) pg/dL 2.7 pg/mL 2.18-3.98 [facility] Thyroid Stimulating Hormone (TSH) 2.33 uIU/mL 0.358-3.74 [facility] Laboratory - Chemistry and C hemistry - challengeon 04-28-2022 Bilirubin Ql (U) Negative Normal [employer]. Ketones Ql (U) Negative Normal [employer]. pH (U) 6.5 [pH] Normal [employer].; [employer]. Specific gravity (U) [Rel density] 1.005 Abnormal [employer]. Urobilinogen Qn (U) 0.2 mg/dL Normal sti[employer]d [employer].; [employer]. Laboratory - Hematology and Cell countson 04-28-2022 Hemoglobin Ql (U) large Abnormal [employer] Laboratory - Specimen inform ationon 04-28-2022 Appearance (U) Cloudy Abnormal [employer]. Color (U) Dark Yellow Normal [employer]. Laboratory - Urinalysison Glucose Test strip (U) [Mass/Vol] Negative Normal [employer]. Leukocyte esterase Test strip Ql (U) small Abnormal [employer]. Nitrite Ql (U) Positive Abnormal [employer].; [employer]. Protein Ql (U) trace Normal [employer]. No Panel Informationon 04-28 CULTURE, URINE, ROUTINE SEE NOTE Normal [employer]. US SOFT TISSUE NECK/HEADon 1 07-21-2020 SOFT TISSUE NECK/HEAD [address] [address] Patient: SIMA KEEN Phone#: : 1985 Age: 36 Gender: F Pt. Type: Account: [id number] Location: 052 Ordering: ALANIS BATISTA Exam Date: 05/20/2021/8:18 Family Phys: Charge Code: 658664 Physician: [place] Order #: [id number] DLP Dose#: PROCEDURE: SOFT TISSUE NECK/HEAD COMPARISON: [...] Knight MD on 05/20/2021 at 11:[address] [facility] THYROIDon 05-20-2021 [place] [address] Patient: SIMA KEEN Phone#: : 1985 Age: 36 Gender: F Pt. Type: Out Account: [id number] Location: 052 Ordering: [facility] Exam Date: 05/20/2021/8:06 Family Phys: Charge Code: 907142 Physician: [place] Order #: [id number] DLP Dose#: PROCEDURE: THYROID ULTRASOUND COMPARISON: None. [...] Knight MD on 05/20/2021 at 10:48 Normal [facility] Laboratory - Chemistry and C hemistry - challengeon 05-12-2021 Free T4 [Mass/Vol] 1.1 ng/dL Normal 0.8 - 1.8 ng/dL [facility] [employer]. TSH Qn 1.76 m[IU]/L Normal [employer]. Laboratory - Hematology and Cell countson 05-12-2021 Basophils (Bld) [#/Vol] 0.031 10*3/uL Normal 0 - 200 {cells/uL} [employer]. Basophils/100 WBC (Bld) 0.5 % Normal [employer]. Eosinophils (Bld) [#/Vol] 0.05 10*3/uL Normal 15 - 500 {cells/uL} [employer]. Eosinophils/100 WBC (Bld) 0.8 % Normal [employer].; [employer]. Erythrocyte distribution width (RBC) [Ratio] 11.6 % Normal 11.0 - 15.0 % [employer].; [employer]. Hematocrit (Bld) [Volume fraction] 37.6 % Normal 35.0 - 45.0 % [employer].; [employer]. Hemoglobin (Bld) [Mass/Vol] 12.7 g/dL Normal 11.7 - 15.5 g/dL [employer].; [employer]. Lymphocytes (Bld) [#/Vol] 2.833 10*3/uL Normal 850 - 3900 {cells/uL} [employer].; [employer]. Lymphocytes/100 WBC (Bld) 45.7 % Normal [employer].; [employer]. MCH (RBC) [Entitic mass] 29.3 pg Normal 27.0 - 33.[address] [facility] [address] [facility].; [employer] MCHC (RBC) [Mass/Vol] 33.8 g/dL Normal 32.0 - 36.0 g/dL [facility], [facility].; [employer] MCV (RBC) [Entitic vol] 86.8 fL Normal 80.0 - 100.0 fL [facility].; [place] [employer], [facility]. Monocytes (Bld) [#/Vol] 0.422 10*3/uL Normal 200 - 950 {cells/uL} [place] [facility].; [employer]. Monocytes/100 WBC (Bld) 6.8 % Normal [place] [facility].; [employer], [employer]. Neutrophils (Bld) [#/Vol] 2.864 10*3/uL Normal 1500 - 7800 {cells/uL} [place] [facility].; [employer]. Neutrophils/100 WBC (Bld) 46.2 % Normal [place] [facility].; [employer]. Platelet mean volume (Bld) [Entitic vol] 10.2 fL Normal 7.5 - 12.5 fL [place] [facility].; [employer] Platelets (Bld) [#/Vol] 302 10*3/uL Normal 140 - 400 [place] [employer].; [employer]. RBC (Bld) [#/Vol] 4.33 10*6/uL Normal 3.80 - 5.10 {Million/u L} [place] [facility].; [employer], [facility]. WBC (Bld) [#/Vol] 6.2 10*3/uL Normal 3.8 - 10.8 [place] [employer].; [employer]. No Panel Informationon 05-12 [id number] SEE NOTE Normal [place] [employer].; [employer] CLINICAL INFORMATION: SEE NOTE Normal [facility].; [employer] GIFT CONSULTANT: SEE NOTE Normal [place] [employer].; [employer] HPV mRNA E6/E7 Not detected Normal [employer] INTERPRETATION/RESULT : SEE NOTE Normal [employer] LMP: SEE NOTE Normal [employer].; [employer] PREV. BX: SEE NOTE Normal [employer].; [employer] PREV. PAP: SEE NOTE Normal [employer].; [employer]. REVIEW GIFT CONSULTANT: SEE NOTE Normal [employer].; [employer] SOURCE: SEE NOTE Normal [employer]. STATEMENT OF ADEQUACY: SEE NOTE Normal [employer]. CORONAVIRUS PCR - [facility] 12-06-2020 SARS-CoV-2 (COVID-19) RNA COLETTE+probe Ql (Unsp spec) Negative Normal NORMAL: NEGATIVE [facility] Comment on above: Performed By: #### 2 35068 #### [facility],[address] [place] [address] SEND TO IC? YES Normal [facility] Comment on above: Result Comment: RESU LTS FAXED TO INFECTION CONTROL. SARS-CoV-2 THIS TEST IS BEING USED UNDER THE FDA EUA PROCEDURE. THIS ASSAY HAS BEEN VALIDATED IN THE [facility] FOR USE WITH NASOPHARYNGEAL SPECIMENS IN [facility]. INTERPRETIVE DATA LABORATORY TEST RESULTS SHOULD ALWAYS [...] PUBLIC HEALTH AUTHORITIES. Performed By: #### 2 13127 #### [facility],[address] [place] [address] EMERGENCY REPORTon 1 EMERGENCY REPORT [facility] EMERGENCY ROOM REPORT NAME ACCOUNT SEX AGE ADMIT DISCHARGE PT MED. RECORD# NUMBER DATE DATE TYPE LEONILA [id number] F 35 11/01/20 11/01/20 3 SIMA [id number] ROOM: ER DATE OF : 1985 DICTATING [...] stronger walking. She Page 1 of 2 CRESCO SIMA Emergency Room Report SIMA KEEN : [...] Minh Chester DO 11/01/20 19:08 JOB #: [id number] Transcribed By: marques 11/02/20 10:35 Electronically signed by: IMAN Chester D.O. 11/04/20 21:14 Page 2 of 2 KEEN, SIMA Emergency Room Report Normal [facility] CBC + DIFFon 11-01-2020 Baso # 0.00 x10EE3/UL Normal 0.00 - 0.10 [facility] Comment on above: Performed By: #### 2 80405 #### [facility],[address] [place], [place] [address] Basophils/100 WBC (Bld) 0.6 % Normal 0.0 - 2.0 [facility] Comment on above: Performed By: #### 2 76278 #### [facility],[address] [place] [address] CBC + DIFF Normal [facility] Comment on above: Result Comment: CBC- COMPLETE BLOOD COUNT Performed By: #### 2 25435 #### [facility],[address] [place] [address] EO # 0.00 x10EE3/UL Normal 0.00 - 0.50 [facility] Comment on above: Performed By: #### 2 02366 #### [facility],[address] [place] [address] Eosinophils/100 WBC (Bld) 0.5 % Normal 0.0 - 7.0 [facility] Comment on above: Performed By: #### 2 38487 #### [facility],[address] [place] [address] Erythrocyte distribution width (RBC) [Ratio] 12.2 % Normal 12.0 - 15.6 [facility] Comment on above: Performed By: #### 2 84824 #### [facility],[address] [place] [address] Hematocrit (Bld) [Volume fraction] 39.6 % Normal 34.0 - 46.0 [facility] Comment on above: Performed By: #### 2 92731 #### [facility],[address] [place] [address] Hemoglobin (Bld) [Mass/Vol] 13.7 g/dL Normal 12.0 - 16.0 [facility] Comment on above: Performed By: #### 2 21613 #### [facility],[address] [place] [address] Lymph # 2.40 x10EE3/UL Normal 0.80 - 2.80 [facility] Comment on above: Performed By: #### 2 70809 #### [facility],[address] [place] [address] Lymphocytes/100 WBC (Bld) 29.4 % Normal 20.0 - 45.0 [facility] Comment on above: Performed By: #### 2 75433 #### [facility],[address] [place] [address] MANUAL DIFF N/A Normal [facility] Comment on above: Performed By: #### 2 04996 #### [facility],[address] [place] [address] MCH (RBC) [Entitic mass] 30 pg Normal 27 - 33 [facility] Comment on above: Performed By: #### 2 75344 #### [facility],[address] [place] [address] MCHC 35 X10 3 Normal 32 - 36 [facility] Comment on above: Performed By: #### 2 96524 #### [facility],[address] [place] [address] MCV (RBC) [Entitic vol] 86 fL Normal 80 - 99 [facility] Comment on above: Performed By: #### 2 79245 #### [facility],[address] [place] [address] [place] # 0.60 x10EE3/UL Normal 0.20 - 1.00 [facility] Comment on above: Performed By: #### 2 76712 #### [facility],[address] [place] [address] MONOS % 6.7 % Normal 0.0 - 10.0 [facility] Comment on above: Performed By: #### 2 73485 #### [facility],[address] [place] [address] Morphology Torito (Bld) [Interp] N/A Normal [facility] Comment on above: Result Comment: {CD] Performed By: #### 2 85518 #### [facility],[address] [place] [address] Neut # 5.20 x10EE3/UL Normal 1.50 - 7.10 [facility] [facility] Comment on above: Performed By: #### 2 [id number] #### [facility],[address] [place] [address] 36284 Neutrophils/100 WBC (Bld) 62.8 % Normal 46.0 - 76.0 [facility] Comment on above: Performed By: #### 2 38325 #### [facility],[address] [place] [address] 60570 PLATELET 300 x10EE3/UL Normal 150 - 450 [facility] Comment on above: Performed By: #### 2 22261 #### [facility],[address] [place] [address] 15765 Platelet mean volume (Bld) [Entitic vol] 7.8 fL Normal 6.6 - 10.5 [facility] Comment on above: Result Comment: AUTO MATED DIFFERENTIAL Performed By: #### 2 33578 #### [facility],[address] [place] [address] 98655 RBC 4.61 x 10EE6/UL Normal 4.10 - 5.30 [facility] Comment on above: Performed By: #### 2 63105 #### [facility],[address] [place] [address] 20358 WBC 8.3 x 10EE3/UL Normal 4.5 - 10.8 [facility] Comment on above: Performed By: #### 2 37501 #### [facility],[address] [place] [address] 20636 CMP with eGFRon 11-01-2020 AGE 35 years Normal [facility] Comment on above: Performed By: #### 2 92982 #### [facility],[address] [place] [address] 10199 Albumin [Mass/Vol] 3.7 g/dL Normal 3.4 - 5.0 [facility] Comment on above: Performed By: #### 2 99374 #### [facility],[address] [place] [address] 80575 Albumin/Globulin [Mass ratio] 0.9 {ratio} Normal 0.9 - 1.6 [facility] Comment on above: Performed By: #### 2 70195 #### [facility],[address] [place] [address] 95718 ALK PHOS 69 U/L Normal 46 - 116 [facility] Comment on above: Performed By: #### 2 46615 #### [facility],[address] [place] [address] 58091 ALT/SGPT <6 Low 14 - 59 [facility] Comment on above: Performed By: #### 2 13473 #### [facility],[address] [place] [address] 12984 Anion gap [Moles/Vol] 15 mmol/L Normal 10 - 20 [facility] Comment on above: Performed By: #### 2 21185 #### [facility],[address] [place] [address] 66113 AST [Catalytic activity/Vol] 10 U/L Low 13 - 39 [facility] Comment on above: Performed By: #### 2 62320 #### [facility],[address] [place] [address] 93259 B/C RATIO 12 ratio Normal 0 - 30 [facility] Comment on above: Performed By: #### 2 79152 #### [facility],[address] [place] [address] 11774 Bilirubin [Mass/Vol] 0.6 mg/dL Normal 0.2 - 1.0 [facility] Comment on above: Performed By: #### 2 70352 #### [facility],[address] [place] [address] 46051 Calcium [Mass/Vol] 8.8 mg/dL Normal 8.5 - 10.1 [facility] Comment on above: Performed By: #### 2 18914 #### [facility],[address] [place] [address] 77370 Chloride [Moles/Vol] 106 mmol/L Normal 98 - 107 [facility] Comment on above: Performed By: #### 2 10235 #### [facility],[address] [place] [address] 45182 CMP with eGFR Normal [facility] Comment on above: Result Comment: COMP REHENSIVE METABOLIC PANEL Performed By: #### 2 56595 #### [facility],[address] [place] [address] 22248 CO2 [Moles/Vol] 23.0 mmol/L Normal 21.0 - 32.0 [facility] Comment on above: Performed By: #### 2 99296 #### [facility],[address] [place] [address] 69312 Creatinine [Mass/Vol] 0.6 mg/dL Normal 0.5 - 1.0 [facility] Comment on above: Performed By: #### 2 04259 #### [facility],[address] [place] [address] 44424 GFR/1.73 sq M.predicted among non-blacks MDRD (S/P/Bld) [Vol rate/Area] mL/min/{1.73_m2} Normal 60 - 999 [facility] Comment on above: Performed By: #### 2 28231 #### [facility],[address] [place] [address] 76975 Result Comment: ACCO RDING TO THE NATIONAL KIDNEY DISEASE EDUCATION PROGRAM(NKDE), A NORMAL eGFR IS A VALUE GREATER THAN OR EQUAL TO 60 ML/MIN/1.73 SQ METERS. CHRONIC KIDNEY DISEASE: <60mL/MIN/1.73 SQ METERS KIDNEY FAILURE: <15mL/MIN/1.73 SQ METERS THIS TEST SHOULD ONLY BE USED FOR PATIENTS 18 YEARS OF AGE AND OLDER. Globulin (S) [Mass/Vol] 4.0 g/dL High 1.5 - 3.8 [facility] Comment on above: Performed By: #### 2 82331 #### [facility],[address] [place] [address] 23726 Glucose [Mass/Vol] 80 mg/dL Normal 74 - 106 [facility] Comment on above: Performed By: #### 2 57648 #### [facility],[address] [place] [address] 21092 Potassium [Moles/Vol] 3.5 mmol/L Normal 3.5 - 5.1 [facility] Comment on above: Performed By: #### 2 92578 #### [facility],[address] [place] [address] 76894 Protein [Mass/Vol] 7.7 g/dL Normal 6.4 - 8.2 [facility] Comment on above: Performed By: #### 2 21758 #### [facility],[address] [place] [address] 86528 Sodium [Moles/Vol] 140 mmol/L Normal 136 - 145 [facility] Comment on above: Performed By: #### 2 25056 #### [facility],[address] [place] [address] 74373 Urea nitrogen [Mass/Vol] 7 mg/dL Normal 7 - 18 [facility] Comment on above: Performed By: #### 2 04022 #### [facility],[address] [place] [address] 43684 CPKon 11-01-2020 CPK 53 U/L Normal 26 - 192 [facility] Comment on above: Performed By: #### 2 08733 #### [facility],[address] [place] [address] 82775 MR LUMBAR SP W/WO CONTRASTon 11-01-2020 MR LUMBAR SP W/WO CONTRAST [address] [address] Patient: SIMA KEEN Phone#: : 1985 Age: 35 Gender: F Pt. Type: ER Account: [id number] Location: 052 Ordering: MINH GARCIAER Exam Date: 11/01/2020/16:17 Family Phys: ALTA ZAPATA Charge Code: [id number] Physician: [place] Order #: [id number] DLP Dose#: PROCEDURE: MRI LUMBAR SPINE WITH [...] 35 Gender: F Pt. Type: ER Account: [id number] Location: 052 Ordering: MINH GARCIAER Exam Date: 11/01/2020/16:17 Family Phys: ALTA ZAPATA Charge Code: 708115 Physician: [place] Order #: [id number] DLP Dose#: Approved by: Yuki Knight MD on 11/01/2020 at 17:43 Normal [facility] SEDRATEon 11-01-2020 SEDRATE 6 mm/hr Normal 0 - 30 [facility] Comment on above: Performed By: #### 2 55032 #### [facility],[address] [place], [place] [id number] CORONAVIRUS PCR [CCL]on REF LAB REPORT Negative Normal [facility] Comment on above: Performed By: #### 2 05736 #### [facility],[address] [place], [place] [id number] SEND TO ? NO Normal [facility] Comment on above: Performed By: #### 2 87542 #### [facility],[address] [place], [place] [address] SARS-CoV-2 (COVID-19) RNA COLETTE+probe Ql (Unsp spec) Nasopharyngeal Swab Normal [facility] Comment on above: Performed By: #### 2 25446 #### [facility],[address] [place], [place] [address] SARS-CoV-2 (COVID-19) RNA COLETTE+probe Ql (Unsp spec) Negative Normal [facility] Comment on above: Result Comment: Nega tive for COVID19 (SARS CoV2) by PCR. This test was developed and its performance characteristics determined by [facility]'s [facility] [place]. This test has been authorized by FDA under an Emergency Use Authorization (EUA). This test has been validated in accordance with the FDA's Guidance Document Policy for Diagnostics Testing in Laboratories Certified to Perform High Complexity Testing under CLIA prior to Emergency use Authorization for Coronavirus Disease 2019 during the Public Health Emergency issued on September 16, 2019. [facility] [address] [id number] Nilton Le III, M.D. [id number] Performed By: #### 2 24129 #### [facility],[address] [place] [address] 80042 Coronavirus 1 COVID 19 Result FORECAST ANALYST Normal Negative for COVID19 (SARS CoV2) by PCR. [facility] Comment on above: Result Comment: Nega tive for This test was developed and its performance characteristics determined by [facility]'s [facility] [place]. This test has been authorized by FDA [...] developed and its performance characteristics determined by [facility]'s [facility] [place]. This test has been authorized by FDA [...] developed and its performance characteristics determined by [facility]'s [facility] [place]. This test has been authorized by FDA under an Emergency Use Authorization (EUA). This test has been validated in accordance with the FDA's Guidance Document Policy for Diagnostics Testing in Laboratories Certified to Perform High Complexity Testing under CLIA prior to Emergency use Authorization for Coronavirus Disease 2019 during the Public Health Emergency issued on September 16, 2019. Coronavirus 1 COVID 19 Source FORECAST ANALYST FORECAST ANALYST Normal [facility] Laboratory - Chemistry and C hemistry - challengeon 08-19-2020 Bilirubin Ql (U) Negative Normal [employer] Ketones Ql (U) Negative Normal [employer] pH (U) 6.0 [pH] Normal [employer] Specific gravity (U) [Rel density] 1.015 Normal [employer]. Urobilinogen Qn (U) 0.2 mg/dL Normal [facility].; [employer] Laboratory - Hematology and Cell countson 08-19-2020 Hemoglobin Ql (U) moderate Abnormal [facility] [employer]. Laboratory - Specimen inform ationon 08-19-2020 Appearance (U) clear Normal [facility].; [place] Color (U) yellow Normal [employer] [employer]. Laboratory - Urinalysison Glucose Test strip (U) [Mass/Vol] Negative Normal [facility] [employer].; [employer]. Leukocyte esterase Test strip Ql (U) small Abnormal [facility].; [employer]. Nitrite Ql (U) Negative Normal [place] [employer].; [place] Protein Ql (U) Negative Normal [employer]; [employer]. No Panel Informationon 08-19 CULTURE, URINE, ROUTINE SEE NOTE Abnormal [facility] [facility] [employer].; [employer]. Laboratory - Chemistry and C hemistry - challengeon 04-25-2019 Albumin [Mass/Vol] 4.3 g/dL Normal 3.6 - 5.1 g/dL [facility].; [employer], [employer]. Albumin/Globulin [Mass ratio] 1.8 {ratio} Normal 1.0 - 2.5 [facility] [employer].; [employer]. ALP [Catalytic activity/Vol] 71 U/L Normal 33 - 115 U/L [place] [facility].; [employer]. ALT [Catalytic activity/Vol] 13 U/L Normal 6 - 29 U/L [employer]. AST [Catalytic activity/Vol] 11 U/L Normal 10 - 30 U/L [place] [employer].; [employer]. Bilirubin [Mass/Vol] 1.0 mg/dL Normal 0.2 - 1 .2 mg/dL [employer].; [employer]. Calcium [Mass/Vol] 9.3 mg/dL Normal 8.6 - 10. 2 mg/dL [facility], [facility].; [facility], [facility]. Chloride [Moles/Vol] 108 mmol/L Normal 98 - 11 0 mmol/L [facility], [facility].; [facility], [facility]. Cholesterol [Mass/Vol] 200 mg/dL Abnormal [facility], [facility].; [facility], [facility]. Cholesterol in HDL [Mass/Vol] 76 mg/dL Normal [facility], [facility].; [facility], [facility]. Cholesterol in LDL [Mass/Vol] 110 mg/dL Abnormal 0 - 100 mg/dL [facility], [facility].; [facility], [facility]. Cholesterol non HDL [Mass/Vol] 124 mg/dL Normal [facility], [facility].; [facility], [facility]. Cholesterol.total/Cho lesterol in HDL [Mass ratio] 2.6 {ratio} Normal [facility], [facility].; [place] [facility], [employer]. CO2 [Moles/Vol] 26 mmol/L Normal 20 - 32 mmol/L [facility], [facility].; [place] [employer], [employer]. Creatinine [Mass/Vol] 0.60 mg/dL Normal 0.50 - 1.10 mg/dL [facility], [facility].; [facility], [facility]. GFR/1.73 sq M.predicted among blacks MDRD (S/P/Bld) [Vol rate/Area] 138 {ML/MIN/1.73M2} Normal [facility], [facility].; [facility], [facility]. GFR/1.73 sq M.predicted MDRD (S/P/Bld) [Vol rate/Area] 119 {ML/MIN/1.73M2} Normal [facility], [facility].; [place] [employer], [facility]. Globulin (S) [Mass/Vol] 2.4 g/dL Normal 1.9 - 3.7 g/dL [facility], [facility].; [place] [facility] Glucose [Mass/Vol] 89 mg/dL Normal 65 - 99 mg/dL [facility], [facility].; [place] [employer], [facility]. Potassium [Moles/Vol] 4.1 mmol/L Normal 3.5 - 5.3 mmol/L [facility].; [facility] Protein [Mass/Vol] 6.7 g/dL Normal 6.1 - 8.1 g/dL [facility].; [place] [employer]. Sodium [Moles/Vol] 140 mmol/L Normal 135 - 146 mmol/L [facility].; [place] [employer]. Triglyceride [Mass/Vol] 48 mg/dL Normal [facility].; [place] [facility]. Urea nitrogen [Mass/Vol] 8 mg/dL Normal 7 - 25 mg/dL [facility].; [place] [employer], [employer]. Urea nitrogen/Creatinine [Mass ratio] 13.3 mg/mg Normal 6 - [address] [facility].; [place] [employer]. Laboratory - Cytologyon 05-20 Microscopic observation Cyto stain Nom (Cvx) Abnormal [facility].; [place] [employer] Laboratory - Cytologyon Microscopic observation Cyto stain Nom (Cvx) Abnormal [place] [facility].; [place] [employer]. Laboratory - Hematology and Cell countson 12-11-2016 Basophils (Bld) [#/Vol] 0.10 {3/UL} Normal 0.00 - 0.10 {3/UL} [place] [employer].; [employer]. Work Phone: Basophils/100 WBC (Bld) 0.4 % Normal 0.0 - 2.0 % [facility].; [place] [employer]. Work Phone: CBC W Auto Differential panel (Bld) CBC Normal [place] [facility].; [employer]. Work Phone: Eosinophils (Bld) [#/Vol] 0.00 {3/UL} Normal 0.00 - 0.50 {3/UL} [place] [employer].; [employer], [employer]. Work Phone: Eosinophils/100 WBC (Bld) 0.1 % Normal 0.0 - 7.0 % [place] [employer].; [employer]. Work Phone: Erythrocyte distribution width (RBC) [Ratio] 13.1 % Normal 12.0 - 15.6 % [facility]; [facility] Work Phone: Hematocrit (Bld) [Volume fraction] 25.5 % Abnormal 34.0 - 46.0 % [facility]; [facility] Work Phone: Hemoglobin (Bld) [Mass/Vol] 8.7 g/dL Abnormal 12.0 - 16.0 g/dL [facility]; [facility] Work Phone: Lymphocytes (Bld) [#/Vol] 2.10 {3/UL} Normal 0.80 - 2.80 {3/UL} [facility]; [facility] Work Phone: Lymphocytes/100 WBC (Bld) 9.1 % Abnormal 20.0 - 45.0 % [facility]; [place] [employer] Work Phone: MCH (RBC) [Entitic mass] 29 pg Normal 27 - 33 pg [facility]; [place] [employer] Work Phone: MCHC (RBC) [Mass/Vol] 34 {X10_3} Normal 32 - 3 6 {X10_3} [facility]; [place] [facility] Work Phone: MCV (RBC) [Entitic vol] 85 fL Normal 80 - 99 fL [facility]; [place] [facility] Work Phone: Monocytes (Bld) [#/Vol] 1.20 {3/UL} Abnormal 0.20 - 1.00 {3/UL} [facility]; [place] [employer]. Work Phone: Monocytes/100 WBC (Bld) 5.0 % Normal 0.0 - 10.0 % [facility]; [place] [employer] Work Phone: Neutrophils (Bld) [#/Vol] 19.50 {3/UL} Abnormal 1.50 - 7.10 {3/UL} [facility].; [facility]. Work Phone: Neutrophils/100 WBC (Bld) 85.4 % Abnormal 46.0 - 76.0 % [facility].; [facility]. Work Phone: Platelet mean volume (Bld) [Entitic vol] 8.0 fL Normal 6.6 - 10.[address] [facility] [address] [facility].; [facility]. Work Phone: Platelets (Bld) [#/Vol] 186 {3/UL} Normal 150 - 450 {3/UL} [facility].; [facility]. Work Phone: RBC (Bld) [#/Vol] 3.00 {6/UL} Abnormal 4.10 - 5.30 {6/UL} [facility].; [place] [facility]. Work Phone: WBC (Bld) [#/Vol] 22.8 {3/UL} Abnormal 4.5 - 10.8 {3/UL} [facility].; [place] [facility]. Work Phone: Laboratory - Blood bankon ABO group Nom (Bld) O Normal [facility]; [facility] Work Phone: Blood group antibody screen Ql Negative Normal [facility]; [place] [employer]. Work Phone: Blood type and Indirect antibody screen panel (Bld) Normal [facility]; [facility]. Work Phone: Rh Nom (Bld) Positive Normal [facility]; [place] [employer] Work Phone: Laboratory - Hematology and Cell countson 12-09-2016 Basophils (Bld) [#/Vol] 0.10 {3/UL} Normal 0.00 - 0.10 {3/UL} [facility].; [employer]. Work Phone: Basophils/100 WBC (Bld) 0.7 % Normal 0.0 - 2.0 % [facility].; [employer]. Work Phone: CBC W Auto Differential panel (Bld) CBC Normal [facility].; [employer]. Work Phone: Eosinophils (Bld) [#/Vol] 0.10 {3/UL} Normal 0.00 - 0.50 {3/UL} [place] [facility].; [employer]. Work Phone: Eosinophils/100 WBC (Bld) 0.4 % Normal 0.0 - 7.0 % [place] [facility].; [employer]. Work Phone: Erythrocyte distribution width (RBC) [Ratio] 12.7 % Normal 12.0 - 15.6 % [place] [facility].; [employer]. Work Phone: Hematocrit (Bld) [Volume fraction] 33.7 % Abnormal 34.0 - 46.0 % [place] [facility].; [employer]. Work Phone: Hemoglobin (Bld) [Mass/Vol] 11.6 g/dL Abnormal 12.0 - 16.0 g/dL [place] [facility].; [employer]. Work Phone: Lymphocytes (Bld) [#/Vol] 2.50 {3/UL} Normal 0.80 - 2.80 {3/UL} [place] [employer].; [employer]. Work Phone: Lymphocytes/100 WBC (Bld) 16.1 % Abnormal 20.0 - 45.0 % [place] [facility].; [employer]. Work Phone: MCH (RBC) [Entitic mass] 29 pg Normal 27 - 33 pg [facility].; [place] [employer]. Work Phone: MCHC (RBC) [Mass/Vol] 34 {X10_3} Normal 32 - 3 6 {X10_3} [facility].; [place] [employer]. Work Phone: MCV (RBC) [Entitic vol] 84 fL Normal 80 - [address] [facility] [address] [facility].; [employer]. Work Phone: Monocytes (Bld) [#/Vol] 0.80 {3/UL} Normal 0.20 - 1.00 {3/UL} [facility].; [employer]. Work Phone: Monocytes/100 WBC (Bld) 5.4 % Normal 0.0 - 10.0 % [facility].; [employer]. Work Phone: Morphology Torito (Bld) [Interp] N/A Normal [place] [facility]; [employer]. Work Phone: Neutrophils (Bld) [#/Vol] 12.20 {3/UL} Abnormal 1.50 - 7.10 {3/UL} [place] [facility].; [employer]. Work Phone: Neutrophils/100 WBC (Bld) 77.4 % Abnormal 46.0 - 76.0 % [place] [facility].; [employer]. Work Phone: Platelet mean volume (Bld) [Entitic vol] 8.3 fL Normal 6.6 - 10.5 fL [place] [employer].; [employer]. Work Phone: Platelets (Bld) [#/Vol] 238 {3/UL} Normal 150 - 450 {3/UL} [place] [employer].; [employer]. Work Phone: RBC (Bld) [#/Vol] 4.01 {6/UL} Abnormal 4.10 - 5.30 {6/UL} [employer]. Work Phone: WBC (Bld) [#/Vol] 15.8 {3/UL} Abnormal 4.5 - 10.8 {3/UL} [employer], [employer]. Work Phone: Laboratory - Urinalysison Glucose Test strip (U) [Mass/Vol] Negative Normal [employer]. Protein Ql (U) Negative Normal [employer], [employer]. No Panel Informationon 12-09 MANUAL DIFF N/A Normal [employer]. Work Phone: Laboratory - Urinalysison Glucose Test strip (U) [Mass/Vol] Negative Normal [employer]. Protein Ql (U) Negative Normal [employer], [employer]. Laboratory - Urinalysison Glucose Test strip (U) [Mass/Vol] Negative Normal [employer].; [employer] Protein Ql (U) Negative Normal [employer].; [employer], [employer]. Laboratory - Urinalysison Glucose Test strip (U) [Mass/Vol] Negative Normal [employer]. Protein Ql (U) Negative Normal [employer].; [employer], [employer]. Laboratory - Urinalysison Glucose Test strip (U) [Mass/Vol] Negative Normal [employer] Protein Ql (U) Negative Normal [employer].; [employer] Laboratory - Microbiology an d Antimicrobial susceptibilityon 11-05-2016 S. agalactiae Org specific cx Ql (Vag fld) CULTURE VAGINAL GROUP B Normal [facility]; [facility] Laboratory - Urinalysison Glucose Test strip (U) [Mass/Vol] Negative Normal [facility]; [facility] Protein Ql (U) Negative Normal [facility].; [place] [facility]. Laboratory - Urinalysison Glucose Test strip (U) [Mass/Vol] Negative Normal [facility].; [place] [employer]. Protein Ql (U) Negative Normal [facility].; [place] [facility]. Laboratory - Urinalysison Glucose Test strip (U) [Mass/Vol] Negative Normal [facility].; [place] [facility]. Protein Ql (U) Negative Normal [facility]; [place] [facility]. Laboratory - Chemistry and C hemistry - challengeon 08-20-2016 Glucose 1 Hr post 50 g glucose PO [Mass/Vol] 112 mg/dL Normal [facility]; [place] [facility]. Laboratory - Hematology and Cell countson 08-20-2016 Hemoglobin (Bld) [Mass/Vol] 11.6 g/dL Abnormal 11.7 - 15.5 g/dL [facility]; [place] [facility]. Laboratory - Urinalysison Glucose Test strip (U) [Mass/Vol] Negative Normal [facility].; [place] [employer]. Protein Ql (U) Negative Normal [facility]; [place] [facility]. Laboratory - Blood bankon ABO group Nom (Bld) O Normal [facility]; [place] [facility] Work Phone: Blood group antibody screen Ql Negative Normal [facility]; [place] [facility] Work Phone: Blood type and Indirect antibody screen panel (Bld) Normal [facility]; [place] [employer] Work Phone: Rh Nom (Bld) Positive Normal [facility]; [employer] Work Phone: Laboratory - Chemistry and C hemistry - challengeon 08-10-2016 Anion gap [Moles/Vol] 15 mmol/L Normal 10 - 2 0 mmol/L [facility]; [employer]. Work Phone: Basic metabolic 2000 panel BMP with eGFR Normal [facility]; [employer] Work Phone: Bilirubin Ql (U) Negative Normal [place] [employer]; [employer] Calcium [Mass/Vol] 9.2 mg/dL Normal 8.6 - 10. 2 mg/dL [place] [employer]; [employer] Work Phone: Chloride [Moles/Vol] 102 mmol/L Normal 98 - 10 7 mmol/L [place] [employer]; [employer] Work Phone: CO2 [Moles/Vol] 22.0 mmol/L Normal 21.0 - 31.0 mmol/L [place] [employer]; [employer] Work Phone: Creatinine [Mass/Vol] 0.5 mg/dL Abnormal 0.6 - 1.2 mg/dL [facility]; [employer] Work Phone: GFR/1.73 sq M.predicted among blacks MDRD (S/P/Bld) [Vol rate/Area] 174 {ML/MINUTE} Normal 60 - 999 {ML/MINUTE } [place] [employer].; [employer]. Work Phone: GFR/1.73 sq M.predicted MDRD (S/P/Bld) [Vol rate/Area] 144 {ML/MINUTE} Normal 60 - 999 {ML/MINUTE } [place] [employer].; [employer] Work Phone: Glucose [Mass/Vol] 87 mg/dL Normal 74 - 106 mg/dL [place] [employer]; [employer] Work Phone: Ketones Ql (U) Negative Normal [facility]; [place] [facility] pH (U) 7.0 [pH] Normal [facility]; [place] [facility] Potassium [Moles/Vol] 3.5 mmol/L Normal 3.5 - 5.1 mmol/L [facility]; [place] [facility] Work Phone: Sodium [Moles/Vol] 135 mmol/L Abnormal 136 - 145 mmol/L [facility].; [place] [employer] Work Phone: Specific gravity (U) [Rel density] 1.015 Normal [facility]; [place] [employer] Urea nitrogen [Mass/Vol] 4 mg/dL Abnormal 6 - 20 mg/dL [facility]; [place] [facility] Work Phone: Urobilinogen Qn (U) 0.2 mg/dL Normal [facility]; [place] [facility] Laboratory - Hematology and Cell countson 08-10-2016 Basophils (Bld) [#/Vol] 0.10 {3/UL} Normal 0.00 - 0.10 {3/UL} [facility]; [place] [employer] Work Phone: Basophils/100 WBC (Bld) 0.5 % Normal 0.0 - 2.0 % [facility]; [place] [employer] Work Phone: CBC W Auto Differential panel (Bld) CBC Normal [place] [facility]; [place] [employer] Work Phone: Eosinophils (Bld) [#/Vol] 0.10 {3/UL} Normal 0.00 - 0.50 {3/UL} [place] [facility].; [employer] Work Phone: Eosinophils/100 WBC (Bld) 0.6 % Normal 0.0 - 7.0 % [facility]; [facility] Work Phone: Erythrocyte distribution width (RBC) [Ratio] 12.6 % Normal 12.0 - 15.6 % [facility]; [facility] Work Phone: Hematocrit (Bld) [Volume fraction] 36.0 % Normal 34.0 - 46.0 % [facility]; [facility] Work Phone: Hemoglobin (Bld) [Mass/Vol] 12.6 g/dL Normal 12.0 - 16.0 g/dL [facility]; [facility] Work Phone: Hemoglobin Ql (U) large Abnormal [facility]; [place] [facility] Lymphocytes (Bld) [#/Vol] 1.70 {3/UL} Normal 0.80 - 2.80 {3/UL} [facility]; [place] [employer] Work Phone: Lymphocytes/100 WBC (Bld) 9.3 % Abnormal 20.0 - 45.0 % [facility]; [place] [facility] Work Phone: MCH (RBC) [Entitic mass] 30 pg Normal 27 - 33 pg [facility]; [place] [employer] Work Phone: MCHC (RBC) [Mass/Vol] 35 {X10_3} Normal 32 - 3 6 {X10_3} [facility]; [place] [employer] Work Phone: MCV (RBC) [Entitic vol] 86 fL Normal 80 - 99 fL [facility]; [place] [facility] Work Phone: Monocytes (Bld) [#/Vol] 0.40 {3/UL} Normal 0.20 - 1.00 {3/UL} [facility]; [place] [employer] Work Phone: Monocytes/100 WBC (Bld) 2.2 % Normal 0.0 - 10.0 % [facility].; [employer]. Work Phone: Morphology [place] (Bld) [Interp] N/A Normal [facility] [employer]. Work Phone: Neutrophils (Bld) [#/Vol] 16.00 {3/UL} Abnormal 1.50 - 7.10 {3/UL} [place] [employer].; [employer]. Work Phone: Neutrophils/100 WBC (Bld) 87.4 % Abnormal 46.0 - 76.0 % [place] [employer].; [employer]. Work Phone: Platelet mean volume (Bld) [Entitic vol] 7.8 fL Normal 6.6 - 10.5 fL [employer].; [employer]. Work Phone: Platelets (Bld) [#/Vol] 224 {3/UL} Normal 150 - 450 {3/UL} [employer].; [employer]. Work Phone: RBC (Bld) [#/Vol] 4.19 {6/UL} Normal 4.10 - 5.30 {6/UL} [employer].; [employer]. Work Phone: WBC (Bld) [#/Vol] 18.4 {3/UL} Abnormal 4.5 - 10.8 {3/UL} [employer].; [employer]. Work Phone: Laboratory - Specimen inform ationon 08-10-2016 Appearance (U) clear Normal [employer].; [employer]. Color (U) yellow Normal [employer].; [employer]. Laboratory - Urinalysison Glucose Test strip (U) [Mass/Vol] Negative Normal [facility].; [employer]. Leukocyte esterase Test strip Ql (U) trace Normal [facility] [employer].; [employer]. Nitrite Ql (U) Negative Normal [facility].; [employer]. Protein Ql (U) Negative Normal [facility].; [employer]. No Panel Informationon 08-10 AGE 31 {years} Normal [facility].; [employer]. Work Phone: MANUAL DIFF N/A Normal [facility].; [employer]. Work Phone: Laboratory - Chemistry and C hemistry - challengeon 08-09-2016 Bilirubin [Mass/Vol] Negative Normal [facility]; [employer]. Work Phone: Glucose [Mass/Vol] NORM Normal [facility]; [employer]. Work Phone: pH (Bld) 5 [pH] Normal [place] [employer]; [employer]. Work Phone: Protein [Mass/Vol] 15 g/dL Abnormal [place] [employer].; [employer]. Work Phone: Laboratory - Hematology and Cell countson 08-09-2016 WBC (Bld) [#/Vol] 25 10*3/uL Abnormal [place] [facility].; [employer]. Work Phone: Laboratory - Microbiology an d Antimicrobial susceptibilityon 08-09-2016 Bacteria identified Cx Nom (U) CULTURE URINE Normal [place] [employer]; [employer]. Work Phone: Bacteria identified Cx Nom (Unsp spec) 1+ Normal [place] [employer].; [employer]. Work Phone: Laboratory - Specimen inform ationon 08-09-2016 Clarity (U) clear Normal [facility] [employer]; [employer]. Work Phone: Color (U) p.yel Normal [facility] CenterGC [facility]; [employer]. Work Phone: Specimen type Nom (Spec) Clean catch Normal [facility].; [employer]. Work Phone: Laboratory - Urinalysison Crystals LM Nom (Urine sed) NONE Normal [place] [employer].; [employer]. Work Phone: Nitrite Ql (U) Negative Normal [place] [facility]; [employer]. Work Phone: Urinalysis dipstick W Reflex Microscopic panel (U) URINALYSIS Normal [place] [employer].; [employer]. Work Phone: Yeast LM Ql (Urine sed) NONE Normal [place] [facility]; [employer]. Work Phone: No Panel Informationon 08-09 Amorphous NONE Normal [place] [employer]; [employer]. Work Phone: Blood 250 Abnormal [employer]; [employer]. Work Phone: Casts NONE Normal [place] [facility]; [employer]. Work Phone: Epi Cells OCC Normal [place] [employer]; [employer]. Work Phone: Ketone Negative Normal [employer]; [employer]. Work Phone: Microscopic SEE BELOW Normal [employer] [employer]; [employer]. Work Phone: Mucous 1+ Normal [employer].; [employer]. Work Phone: Rbc 20-25 Abnormal 0 - 3 [place] [employer].; [employer]. Work Phone: Sp [place] 1.020 Normal [employer]. Work Phone: Urobilinog NORM Normal [employer]; [employer]. Work Phone: Wbc 6-10 Normal 0 - 5 [employer]. Work Phone: Laboratory - Urinalysison Glucose Test strip (U) [Mass/Vol] Negative Normal [employer] Protein Ql (U) Negative Normal [employer]. Laboratory - Urinalysison Glucose Test strip (U) [Mass/Vol] Negative Normal [employer]. Protein Ql (U) Negative Normal [employer]. Laboratory - Blood bankon ABO group Nom (Bld) O Normal [employer]; [employer]. Blood group antibody screen Ql Negative Normal [employer]; [employer]. Laboratory - Chemistry and C hemistry - challengeon 05-01-2016 Bilirubin Ql (U) Negative Normal [employer]; [employer]. Ketones Ql (U) Negative Normal [employer]. pH (U) 5.0 [pH] Abnormal [employer]; [employer]. Specific gravity (U) [Rel density] 1.005 Abnormal [employer]. TSH Qn 1.31 m[IU]/L Normal 0.40 - 4.50 {mIU/L} [employer].; [employer]. Urobilinogen Qn (U) 0.2 mg/dL Normal [employer].; [employer]. Laboratory - Hematology and Cell countson 05-01-2016 Basophils (Bld) [#/Vol] 40 {Cells}/uL Normal 0 - 200 {Cells}/uL [facility].; [facility] Basophils/100 WBC (Bld) 0 % Normal 0 - 1 % [facility].; [facility], [facility] Eosinophils (Bld) [#/Vol] 60 {Cells}/uL Normal 15 - 500 {Cells}/uL [facility].; [facility], [facility] Eosinophils/100 WBC (Bld) 1 % Normal 0 - 4 % [facility].; [facility] Erythrocyte distribution width (RBC) [Ratio] 12.4 % Normal 11.0 - 15.0 % [facility].; [facility], [facility] Hematocrit (Bld) [Volume fraction] 38.4 % Normal 35.0 - 45.0 % [facility]; [facility], [facility] Hemoglobin (Bld) [Mass/Vol] 12.8 g/dL Normal 11.7 - 15.5 g/dL [facility].; [facility], [facility] Hemoglobin Ql (U) trace, hemolyzed Abnormal H [facility]; [facility] Lymphocytes (Bld) [#/Vol] 2300 {Cells}/uL Normal 850 - 3900 {Cells}/uL [facility].; [facility], [facility] Lymphocytes/100 WBC (Bld) 26 % Normal 12 - 47 % [facility]; [facility], [facility]. MCH (RBC) [Entitic mass] 29.3 pg Normal 27.0 - 33.[address] [facility].; [facility], [facility]. MCHC (RBC) [Mass/Vol] 33.3 g/dL Normal 32.0 - 36.0 g/dL [facility].; [facility], [facility]. MCV (RBC) [Entitic vol] 88.0 fL Normal 80.0 - 100.[address] [facility] [facility].; [place] [facility], [facility]. Monocytes (Bld) [#/Vol] 350 {Cells}/uL Normal 200 - 950 {Cells}/uL [facility].; [facility] [employer], [facility]. Monocytes/100 WBC (Bld) 4 % Normal 4 - 12 % [facility].; [place] [employer]. Neutrophils (Bld) [#/Vol] 6080 {Cells}/uL Normal 1500 - 7800 {Cells}/uL [facility].; [place] [employer]. Neutrophils/100 WBC (Bld) 69 % Normal 40 - 75 % [facility].; [employer]. Platelet mean volume (Bld) [Entitic vol] 9.3 fL Normal 7.5 - 11.5 fL [facility].; [place] [employer]. Platelets (Bld) [#/Vol] 263 10*3/uL Normal 140 - 400 10*3/uL [place] [employer].; [place] [employer]. RBC (Bld) [#/Vol] 4.36 10*6/uL Normal 3.80 - 5.10 10*6/uL [facility].; [place] [employer]. WBC (Bld) [#/Vol] 8.8 10*3/uL Normal 3.8 - 10.8 10*3/uL [place] [employer].; [employer]. Laboratory - Microbiology an d Antimicrobial susceptibilityon 05-01-2016 HBV surface Ag IA Ql Non-Reactive Normal [facility]; [employer] Reagin Ab RPR Ql (S) Non-Reactive Normal [facility]; [employer] Rubella virus IgG Qn (S) 2.75 [IU]/mL Normal [place] [facility].; [employer]. Laboratory - Specimen inform ationon 05-01-2016 Appearance (U) clear Normal [place] [facility].; [employer] Color (U) yellow Normal [place] [employer].; [employer]. Laboratory - Urinalysison Glucose Test strip (U) [Mass/Vol] Negative Normal [facility].; [employer]. Leukocyte esterase Test strip Ql (U) trace Normal [facility].; [employer] Nitrite Ql (U) Negative Normal [facility] [employer].; [employer]. Protein Ql (U) Negative Normal [facility]; [place] [employer] No Panel Informationon 05-01 RH TYPE Positive Normal [facility]; [place] [facility] Laboratory - Chemistry and C hemistry - challengeon 02-08-2014 Albumin [Mass/Vol] 4.5 g/dL Normal 3.4 - 4.8 g/dL [facility]; [place] [employer] Albumin [Mass/Vol] 1.7 g/dL Abnormal 0.9 - 1.[address] [facility].; [place] [employer]. ALP [Catalytic activity/Vol] 57 U/L Normal 38 - 126 U/L [facility].; [place] [facility]. ALT [Catalytic activity/Vol] 7 U/L Abnormal 8 - 35 U/L [facility].; [place] [employer]. ALT No additional P-5'-P [Catalytic activity/Vol] 7 U/L Abnormal 8 - 35 U/L [facility].; [employer]. AST [Catalytic activity/Vol] 11 U/L Abnormal 13 - 39 U/L [facility].; [place] [employer]. Bilirubin [Mass/Vol] 1.0 mg/dL Normal 0.0 - 1 .5 mg/dL [facility].; [place] [facility] [place], [facility]. Calcium [Mass/Vol] 9.2 mg/dL Normal 8.6 - 10. 2 mg/dL [facility].; [place] [employer]. Chloride [Moles/Vol] 104 mmol/L Normal 98 - 10 7 mmol/L [facility].; [place] [employer]. Cholesterol [Mass/Vol] 204 mg/dL Abnormal 0 - 200 mg/dL [facility].; [place] [employer]. Cholesterol in HDL [Mass or moles/Vol] 81 mg/dL Abnormal 40 - 60 mg/dL [facility].; [place] [employer], [employer]. Cholesterol in LDL [Mass/Vol] 115 mg/dL Normal 0 - 129 mg/dL [facility].; [employer]. Cholesterol.total/Cho lesterol in HDL [Mass ratio] 2.5 {ratio} Normal 0.0 - 5.0 [facility]; [facility] CO2 [Moles/Vol] 25.0 mmol/L Normal 13.0 - 29.0 mmol/L [facility].; [facility], [facility] Comprehensive metabolic 2000 panel CMP with eGFR Normal [facility]; [facility] Creatinine [Mass/Vol] 0.7 mg/dL Normal 0.6 - 1.2 mg/dL [facility].; [facility], [facility]. GFR/1.73 sq M.predicted among blacks MDRD (S/P/Bld) [Vol rate/Area] mL/min/{1.73_m2} Normal 60 - 999 {ML/MINUTE } [facility].; [facility], [facility]. GFR/1.73 sq M.predicted MDRD (S/P/Bld) [Vol rate/Area] mL/min/{1.73_m2} Normal 60 - 999 {ML/MINUTE } [facility].; [facility], [facility]. Globulin (S) [Mass/Vol] 2.6 g/dL Normal 1.5 - 3.8 g/dL [facility].; [facility], [facility]. Glucose [Mass/Vol] 73 mg/dL Abnormal 74 - 106 mg/dL [facility].; [facility], [facility]. Lipid 1996 panel LIPID PROFILE Normal [facility]; [facility], [facility] Potassium [Moles/Vol] 4.0 mmol/L Normal 3.5 - 5.1 mmol/L [facility].; [facility], [facility] Protein [Mass/Vol] 7.1 g/dL Normal 6.4 - 8.3 g/dL [facility], [facility].; [facility], [facility]. Sodium [Moles/Vol] 135 mmol/L Abnormal 136 - 145 mmol/L [facility], [facility].; [facility], [facility]. Triglyceride [Mass/Vol] 41 mg/dL Normal 0 - 150 mg/dL [facility].; [facility] [employer] Urea nitrogen [Mass/Vol] 8 mg/dL Normal 6 - 20 mg/dL [facility].; [facility] Urea nitrogen/Creatinine [Mass ratio] 11 {ratio} Normal 0 - 30 {ratio} [facility].; [facility] Laboratory - Microbiology an d Antimicrobial susceptibilityon 02-08-2014 C. trachomatis DNA COLETTE+probe Ql (Unsp spec) Normal [facility]; [place] [facility]. No Panel Informationon 02-08 AGE 28 {years} Normal [facility]; [facility] Vital Signs Date Time Vital Sign Value Performing Clinician Facility 03-01-2025 08:45-0400 Body temperature 97.2 [degF] Alanis Batista PA Work Phone: [phone] [place] [address] 03-01-2025 08:45-0400 Diastolic blood pressure 66 mm[Hg] Alanis Batista PA Work Phone: [phone] [place] [address] 03-01-2025 08:45-0400 Heart rate 68 /min Alanis Batista PA Work Phone: [phone] [place] [address] 03-01-2025 08:45-0400 Respiratory rate 16 /min Alanis Batista PA Work Phone: [phone] [address] 03-01-2025 08:45-0400 SaO2% (BldA) [Mass fraction] 99 % Alanis Batista PA Work Phone: [facility] 03-01-2025 08:45-0400 Systolic blood pressure 101 mm[Hg] Alanis Batista PA Work Phone: [phone] [place] [address] 03-01-2025 07:01-0400 Body height 170.18 cm Alanis Batista PA Work Phone: [phone] [place] [address] 03-01-2025 07:01-0400 Body mass index (BMI) [Ratio] 24.5 kg/m2 Alanis Batista PA Work Phone: [facility] 03-01-2025 07:01-0400 Body weight 70.9 kg Alanis Batista PA Work Phone: [facility] 01-02-2025 10:10-0400 Body height 170.2 cm [facility] Comment on above: Per pt 01-02-2025 10:10-0400 Body mass index (BMI) [Ratio] 24.59 kg/m2 [place] [facility] [facility] 10:10-0400 Body weight 71.22 kg [facility] Comment on above: Per pt 10-26-2024 10:30-0400 Body temperature 97.9 [degF] Alanis Batista PA Work Phone: 2(368)[phone] [place] [address] 10-26-2024 10:30-0400 Diastolic blood pressure 54 mm[Hg] Alanis Batista PA Work Phone: 5(695)[phone] [place] [address] 10-26-2024 10:30-0400 Heart rate 79 /min Alanis Batista PA Work Phone: 1(406)[phone] [place] [address] 10-26-2024 10:30-0400 Respiratory rate 16 /min Alanis Batista PA Work Phone: 4([phone] [place] [address] 10-26-2024 10:30-0400 SaO2% (BldA) [Mass fraction] 97 % Alanis Batista PA Work Phone: 0(794)[phone] [place] [address] 10-26-2024 10:30-0400 Systolic blood pressure 99 mm[Hg] Alanis Batista PA Work Phone: 4(151)[phone] [place] [address] 10-26-2024 08:53-0400 Body height 170.18 cm Alanis Batista PA Work Phone: 3(182)[phone] [place] [address] 10-26-2024 08:53-0400 Body mass index (BMI) [Ratio] 24.8 kg/m2 Alanis Batisat PA Work Phone: [facility] 10-26-2024 08:53-0400 Body weight 72.03 kg Alanis Batista PA Work Phone: 4([phone] [place] [address] 10-04-2024 13:16-0400 Body height 170.18 cm Alanis Batista PA Work Phone: [facility] 10-04-2024 13:16-0400 Body mass index (BMI) [Ratio] 24.9 kg/m2 Alanis Batista PA Work Phone: [facility] 10-04-2024 13:16-0400 Body weight 72.12 kg Alanis Batista PA Work Phone: [facility] 10-04-2024 13:16-0400 Diastolic blood pressure 86 mm[Hg] Alanis Batista PA Work Phone: [facility] 10-04-2024 13:16-0400 Heart rate 90 /min Alanis Batista PA Work Phone: [facility] 10-04-2024 13:16-0400 Respiratory rate 17 /min Alanis Batista PA Work Phone: [facility] 10-04-2024 13:16-0400 SaO2% (BldA) [Mass fraction] 99 % Alanis Batista PA Work Phone: [facility] 10-04-2024 13:16-0400 Systolic blood pressure 126 mm[Hg] Alanis Batista PA Work Phone: [facility] 08-30-2024 13:17-0500 Body height 171.45 cm Juliet Patten LPN [facility] 08-30-2024 13:17-0500 Body mass index (BMI) [Ratio] 25.62 kg/m2 Juliet Patten LPN [facility] 08-30-2024 13:17-0500 Body surface area Derived from formula 1.88 m2 Juliet Patten LPN [facility] 08-30-2024 13:17-0500 Body weight 75.3 kg Juliet Patten LPN [facility] 08-30-2024 13:17-0500 Diastolic blood pressure 75 mm[Hg] Juliet Patten LPN [facility]. Comment on above: Patient Position: Sitting; Cuff Location : Right Arm; Cuff Size: Standard 08-30-2024 13:17-0500 Heart rate 71 /min Juliet Vacasally FARNSWORTH [facility], [facility].; [employer]. Comment on above: Pattern: Regular 08-30-2024 13:17-0500 Systolic blood pressure 110 mm[Hg] Juliet Alvaradoach CRYPTOLOGICAL TECHNICIAN [facility], [facility].; [employer]. Comment on above: Patient Position: Sitting; Cuff Location : Right Arm; Cuff Size: Standard 07-14-2023 14:42-0500 Body height 171.45 cm Juliet Vacalabach [facility], [facility].; [place] [facility]. 07-14-2023 14:42-0500 Body mass index (BMI) [Ratio] 24.38 kg/m2 Juliet Collier Earline [facility] [place] [facility], [facility]. 07-14-2023 14:42-0500 Body surface area Derived from formula 1.84 m2 Juliet Vacalabach CRYPTOLOGICAL TECHNICIAN [facility], [facility].; [employer]. 07-14-2023 14:42-0500 Body weight 71.67 kg Juliet Vacalabach CRYPTOLOGICAL TECHNICIAN [facility], [facility].; [employer]. 07-14-2023 14:42-0500 Diastolic blood pressure 77 mm[Hg] Juliet Collier Earline CRYPTOLOGICAL TECHNICIAN [facility].; [employer]. Comment on above: Patient Position: Sitting; Cuff Location : Left Arm; Cuff Size: Standard 07-14-2023 14:42-0500 Heart rate 88 /min Juliet Vacalabach CRYPTOLOGICAL TECHNICIAN [facility].; [employer]. Comment on above: Pattern: Regular 07-14-2023 14:42-0500 Systolic blood pressure 113 mm[Hg] Juliet Vacalabach CRYPTOLOGICAL TECHNICIAN [place] [facility]. Comment on above: Patient Position: Sitting; Cuff Location : Left Arm; Cuff Size: Standard 05-13-2023 11:30-0400 Diastolic blood pressure 85 mm[Hg] PA Alanis Batista PA Work Phone: [facility] 05-13-2023 11:30-0400 Heart rate 84 /min PA Alanis Batista PA Work Phone: [facility] 05-13-2023 11:30-0400 Respiratory rate 16 /min PA Alanis Batista PA Work Phone: [facility] 05-13-2023 11:30-0400 SaO2% (BldA) [Mass fraction] 100 % PA Alanis Batista PA Work Phone: 4([phone] [place] [address] 05-13-2023 11:30-0400 Systolic blood pressure 114 mm[Hg] PA Alanis Batista PA Work Phone: 1([phone] [place] [address] 05-13-2023 10:56-0400 Body temperature 97.3 [degF] PA Alanis Batista PA Work Phone: 5(302)[phone] [place] [address] 05-13-2023 09:50-0400 Body height 170.18 cm PA Alanis Batista PA Work Phone: 7(104)[phone] [place] [address] 05-13-2023 09:50-0400 Body mass index (BMI) [Ratio] 24.1 kg/m2 PA Alanis Batista PA Work Phone: [facility] 05-13-2023 09:50-0400 Body weight 70 kg PA Alanis Batista PA Work Phone: 3([phone] [place] [address] 11-02-2022 08:06-0400 Body height 171.45 cm Juliet Patten LPN [facility], [facility].; [facility] 11-02-2022 08:06-0400 Body mass index (BMI) [Ratio] 23.76 kg/m2 Juliet Patten LPN [facility], [facility].; [facility]. 11-02-2022 08:06-0400 Body surface area Derived from formula 1.82 m2 Juliet Patten LPN [facility], [facility].; [facility]. 11-02-2022 08:06-0400 Body weight 69.85 kg Juliet Collier Earline [employer] [facility], [facility].; [place] [facility], [facility]. 11-02-2022 08:06-0400 Diastolic blood pressure 81 mm[Hg] [facility].; [place] [facility], [facility]. Comment on above: Patient Position: Sitting; Cuff Location : Left Arm; Cuff Size: Standard 11-02-2022 08:06-0400 Heart rate 76 /min [facility].; [place] [facility], [facility]. Comment on above: Pattern: Regular 11-02-2022 08:06-0400 Systolic blood pressure 123 mm[Hg] Juliet Collier Earline [facility].; [place] [facility], [facility]. Comment on above: Patient Position: Sitting; Cuff Location : Left Arm; Cuff Size: Standard 11-25-2021 08:55-0400 Body height 171.45 cm June Lamas LPN [facility], [facility].; [facility], [facility]. 11-25-2021 08:55-0400 Body mass index (BMI) [Ratio] 22.99 kg/m2 [facility].; [place] [facility], [facility]. 11-25-2021 08:55-0400 Body surface area Derived from formula 1.79 m2 June Lamas LPN [facility], [facility].; [place] [facility], [facility]. 11-25-2021 08:55-0400 Body temperature 98.4 [degF] June Lamas LPN [facility], [facility].; [place] [facility], [facility]. Comment on above: Method: Tympanic 11-25-2021 08:55-0400 Body weight 67.59 kg June [facility].; [place] [facility], [facility]. 11-25-2021 08:55-0400 Diastolic blood pressure 77 mm[Hg] June Lamas LPN [facility], [facility].; [employer] [facility], [facility]. Comment on above: Patient Position: Sitting; Cuff Location : Right Arm; Cuff Size: Standard 11-25-2021 08:55-0400 Heart rate 101 /min June Lamas LPN [facility].; [place] [facility], [employer]. Comment on above: Pattern: Regular 11-25-2021 08:55-0400 Inhaled oxygen concentration 20 % June Lamas LPN [facility], [facility].; [facility], [facility]. Comment on above: Room air 11-25-2021 08:55-0400 Inhaled oxygen concentration 21 % June [facility].; [place] [facility], [employer]. Comment on above: Room air 11-25-2021 08:55-0400 SaO2% (BldA) [Mass fraction] 99 % June [facility].; [place] [facility], [facility]. 11-25-2021 08:55-0400 Systolic blood pressure 117 mm[Hg] June [facility].; [place] [facility], [employer]. Comment on above: Patient Position: Sitting; Cuff Location : Right Arm; Cuff Size: Standard 09-01-2021 11:40-0500 Body height 171.45 cm Juliet [facility]atten [facility].; [place] [facility], [facility]. 09-01-2021 11:40-0500 Body mass index (BMI) [Ratio] 23.76 kg/m2 Juliet Patten [facility], [facility].; [place] [facility], [facility]. 09-01-2021 11:40-0500 Body surface area Derived from formula 1.82 m2 Juliet [facility].; [place] [facility], [facility]. 09-01-2021 11:40-0500 Body temperature 100 [degF] Juliet Patten [facility], [facility].; [employer] [facility] [facility]. Comment on above: Method: Tympanic 09-01-2021 11:40-0500 Body weight 69.85 kg Juliet Patten LPN [facility], [facility].; [place] [facility], [facility]. 09-01-2021 11:40-0500 Diastolic blood pressure 81 mm[Hg] Juliet Patten LPN [facility], [facility].; [employer]. Comment on above: Patient Position: Sitting; Cuff Location : Left Arm; Cuff Size: Standard 09-01-2021 11:40-0500 Heart rate 99 /min Juliet Patten [facility], [facility] [employer]. Comment on above: Pattern: Regular 09-01-2021 11:40-0500 Inhaled oxygen concentration 20 % Juliet Alvaradoach [facility], [facility] [employer]. Comment on above: Room air 09-01-2021 11:40-0500 Inhaled oxygen concentration 21 % Juliet Alvaradoach [facility] [employer]. Comment on above: Room air 09-01-2021 11:40-0500 SaO2% (BldA) [Mass fraction] 98 % Juliet Collier Earline [facility], [facility] [employer]. 09-01-2021 11:40-0500 Systolic blood pressure 124 mm[Hg] Juliet Clolier Earline [facility], [facility].; [employer]. Comment on above: Patient Position: Sitting; Cuff Location : Left Arm; Cuff Size: Standard 05-12-2021 14:28-0400 Body height 171.45 cm Juliet Collier Earline [facility].; [employer]. 05-12-2021 14:28-0400 Body mass index (BMI) [Ratio] 23.3 kg/m2 Juliet M Earline [facility], [facility].; [employer] [facility]. 05-12-2021 14:28-0400 Body surface area Derived from formula 1.8 m2 Julietkiara Alvaradoach [facility], [facility].; [employer]. 05-12-2021 14:28-0400 Body weight 68.49 kg Juliet M Earline [facility], [employer].; [employer]. 05-12-2021 14:28-0400 Diastolic blood pressure 83 mm[Hg] Juliet Alvaradoach [facility], [facility].; [employer]. Comment on above: Patient Position: Sitting; Cuff Location : Left Arm; Cuff Size: Standard 05-12-2021 14:28-0400 Heart rate 76 /min Juliet [facility]atten [facility].; [employer]. Comment on above: Pattern: Regular 05-12-2021 14:28-0400 Systolic blood pressure 118 mm[Hg] Juliet Patten [facility]PN [facility].; [employer]. Comment on above: Patient Position: Sitting; Cuff Location : Left Arm; Cuff Size: Standard 12-05-2020 09:02-0400 Body height 171.45 cm Supriya Dayana Expa PA-C Work Phone: [place] [employer].; [employer]. 12-05-2020 09:02-0400 Body mass index (BMI) [Ratio] 22.53 kg/m2 [employer] PA-C Work Phone: [employer].; [employer]. 12-05-2020 09:02-0400 Body surface area Derived from formula 1.78 m2 [employer] PA-C Work Phone: [employer].; [employer]. 12-05-2020 09:02-0400 Body temperature 97 [degF] [employer] PA-C Work Phone: [employer].; [employer]. Comment on above: Method: Tympanic 12-05-2020 09:02-0400 Body weight 66.23 kg [employer] PA-C Work Phone: [employer].; [employer]. 12-05-2020 09:02-0400 Diastolic blood pressure 71 mm[Hg] [employer] PA-C Work Phone: [employer].; [employer]. Comment on above: Patient Position: Sitting; Cuff Location : Right Arm; Cuff Size: Standard 12-05-2020 09:02-0400 Heart rate 106 /min [employer] PA-C Work Phone: [employer].; [employer]. Comment on above: Pattern: Regular 12-05-2020 09:02-0400 Systolic blood pressure 106 mm[Hg] Supriya Anne [place] PA-C Work Phone: [place] [employer]; [employer]. Comment on above: Patient Position: Sitting; Cuff Location : Right Arm; Cuff Size: Standard 09-19-2020 11:05-0500 Body height 171.45 cm Supriya Anne Expa PA-C Work Phone: [place] [employer]; [employer] 09-19-2020 11:05-0500 Body mass index (BMI) [Ratio] 21.91 kg/m2 Supriya Dayana Expa PA-C Work Phone: [employer]; [employer] 09-19-2020 11:05-0500 Body surface area Derived from formula 1.76 m2 Supriya Dayana Expa PA-C Work Phone: [employer]; [employer] 09-19-2020 11:05-0500 Body temperature 97.3 [degF] Supriya Anne Expa PA-C Work Phone: [employer]; [employer]. Comment on above: Method: Tympanic 09-19-2020 11:05-0500 Body weight 64.41 kg Supriya Anne [place] PA-C Work Phone: [employer]; [employer]. 09-19-2020 11:05-0500 Diastolic blood pressure 78 mm[Hg] Supriya Dayana Expa PA-C Work Phone: [employer]; [employer] Comment on above: Patient Position: Sitting; Cuff Location : Right Arm; Cuff Size: Standard 09-19-2020 11:05-0500 Heart rate 111 /min Supriya Dayana [place] PA-C Work Phone: [employer]; [facility] Comment on above: Pattern: Regular 09-19-2020 11:05-0500 Systolic blood pressure 119 mm[Hg] Supriya Stratton PA-C Work Phone: [facility]; [employer] Comment on above: Patient Position: Sitting; Cuff Location : Right Arm; Cuff Size: Standard 08-19-2020 15:49-0500 Body height 171.45 cm Supriya Cheng RN [facility] [employer]. 08-19-2020 15:49-0500 Body mass index (BMI) [Ratio] 22.84 kg/m2 Supriya Cheng RN [employer].; [employer]. 08-19-2020 15:49-0500 Body surface area Derived from formula 1.79 m2 Supriya Cheng RN [place] [employer].; [employer]. 08-19-2020 15:49-0500 Body temperature 99 [degF] Supriya Cheng RN [employer].; [employer]. Comment on above: Method: Tympanic 08-19-2020 15:49-0500 Body weight 67.13 kg Supriya Cheng RN [place] [employer].; [employer]. 08-19-2020 15:49-0500 Diastolic blood pressure 75 mm[Hg] Supriya Cheng RN [employer].; [employer]. Comment on above: Patient Position: Sitting; Cuff Location : Left Arm; Cuff Size: Standard 08-19-2020 15:49-0500 Heart rate 80 /min Supriya Cheng RN [employer].; [employer]. Comment on above: Pattern: Regular 08-19-2020 15:49-0500 Systolic blood pressure 114 mm[Hg] Supriya Cheng RN [employer].; [employer]. Comment on above: Patient Position: Sitting; Cuff Location : Left Arm; Cuff Size: Standard 03-06-2020 11:14-0400 Body height 171.45 cm Ann Bryant LPN [facility] [employer] 03-06-2020 11:14-0400 Body mass index (BMI) [Ratio] 21.76 kg/m2 Ann Bryant LPN [facility] [employer] 03-06-2020 11:14-0400 Body surface area Derived from formula 1.75 m2 Ann Bryant LPN [facility] [place] [employer] 03-06-2020 11:14-0400 Body temperature 99.1 [degF] Ann Bryant LPN [facility].; [employer] Comment on above: Method: Tympanic 03-06-2020 11:140400 Body weight 63.96 kg Ann Bryant LPN [facility], [facility].; [employer] 03-06-2020 11:14-0400 Diastolic blood pressure 72 mm[Hg] Ann Bryant LPN [facility], [facility].; [employer], [employer]. Comment on above: Patient Position: Sitting; Cuff Location : Left Arm; Cuff Size: Standard 03-06-2020 11:14-0400 Heart rate 75 /min Ann Bryant LPN [facility], [facility].; [employer]. Comment on above: Pattern: Regular 03-06-2020 11:14-0400 Systolic blood pressure 108 mm[Hg] Ann Bryant LPN [facility] [employer], [employer]. Comment on above: Patient Position: Sitting; Cuff Location : Left Arm; Cuff Size: Standard 06-13-2019 13:06-0500 Body height 171.45 cm Williams Hallman LPN [facility] [employer] 06-13-2019 13:06-0500 Body mass index (BMI) [Ratio] 21.6 kg/m2 Williams Hallman CRYPTOLOGICAL TECHNICIAN [facility] [employer] 06-13-2019 13:06-0500 Body surface area Derived from formula 1.75 m2 Williams Hallman CRYPTOLOGICAL TECHNICIAN [facility] [employer] 06-13-2019 13:06-0500 Body temperature 98 [degF] Neilee L Vess CRYPTOLOGICAL TECHNICIAN [employer]. Comment on above: Method: Tympanic 06-13-2019 13:06-0500 Body weight 63.5 kg Neilee L Vess CRYPTOLOGICAL TECHNICIAN [employer] 06-13-2019 13:06-0500 Diastolic blood pressure 70 mm[Hg] Neilee L Vess CRYPTOLOGICAL TECHNICIAN [employer] Comment on above: Patient Position: Sitting; Cuff Location : Left Arm; Cuff Size: Standard 06-13-2019 13:06-0500 Heart rate 82 /min Speekilee L Vess CRYPTOLOGICAL TECHNICIAN [employer]. Comment on above: Pattern: Regular 06-13-2019 13:06-0500 Systolic blood pressure 113 mm[Hg] Neilee L Vess CRYPTOLOGICAL TECHNICIAN [employer] Comment on above: Patient Position: Sitting; Cuff Location : Left Arm; Cuff Size: Standard 05-17-2019 09:100400 Body height 171.45 cm Jessica Young RN [employer] 05-17-2019 09:10-0400 Body mass index (BMI) [Ratio] 21.6 kg/m2 Jessica Young RN [employer].; [employer] 05-17-2019 09:100400 Body surface area Derived from formula 1.75 m2 Jessica Young RN [employer] 05-17-2019 09:10-0400 Body temperature 99.4 [degF] Jessica Young RN [employer]. Comment on above: Method: Tympanic 05-17-2019 09:100400 Body weight 63.5 kg Jessica Young RN [employer].; [employer] 05-17-2019 09:100400 Diastolic blood pressure 68 mm[Hg] Jessica Young RN [employer].; [facility] Comment on above: Patient Position: Sitting; Cuff Location : Left Arm; Cuff Size: Standard 05-17-2019 09:100400 Heart rate 80 /min Jessica Young RN [employer] Comment on above: Pattern: Regular 05-17-2019 09:100400 Systolic blood pressure 114 mm[Hg] Jessica Young RN [employer] Comment on above: Patient Position: Sitting; Cuff Location : Left Arm; Cuff Size: Standard 04-27-2019 08:21-0400 Body height 171.45 cm Anabel Lowry LPN [employer] 04-27-2019 08:21-0400 Body mass index (BMI) [Ratio] 21.6 kg/m2 Anabel Lowry LPN [employer] 04-27-2019 08:21-0400 Body surface area Derived from formula 1.75 m2 Anabel Lowry LPN [employer] 04-27-2019 08:21-0400 Body weight 63.5 kg Anabel Lowry LPN [employer] 04-25-2019 08:42-0400 Body height 171.45 cm Juliet Patten LPN [employer] 04-25-2019 08:42-0400 Body mass index (BMI) [Ratio] 21.6 kg/m2 Juliet Patten LPN [employer] 04-25-2019 08:42-0400 Body surface area Derived from formula 1.75 m2 Juliet Patten LPN [employer] 04-25-2019 08:42-0400 Body weight 63.5 kg Juliet Patten LPN [employer] 04-25-2019 08:42-0400 Diastolic blood pressure 76 mm[Hg] Juliet Patten LPN [facility] [employer]. Comment on above: Patient Position: Sitting; Cuff Location : Right Arm; Cuff Size: Standard 04-25-2019 08:42-0400 Heart rate 77 /min [facility] [employer]. Comment on above: Pattern: Regular 04-25-2019 08:42-0400 Systolic blood pressure 119 mm[Hg] Juliet Patten [facility], [employer].; [employer]. Comment on above: Patient Position: Sitting; Cuff Location : Right Arm; Cuff Size: Standard 08-05-2017 21:04-0500 Body temperature 97.8 [degF] Alta Zapata MD Work Phone: [facility] [employer]. 08-05-2017 21:04-0500 Body weight 68.49 kg Alta Zapata MD Work Phone: [place] [employer]. 08-05-2017 21:04-0500 Diastolic blood pressure 76 mm[Hg] Alta Zapata MD Work Phone: [place] [facility] [employer]. Comment on above: Patient Position: Sitting; Cuff Location : Left Arm; Cuff Size: Standard 08-05-2017 21:04-0500 Heart rate 84 /min Alta Zapata MD Work Phone: [facility] [employer]. Comment on above: Pattern: Regular 08-05-2017 21:04-0500 Systolic blood pressure 121 mm[Hg] Alta Zapata MD Work Phone: [place] [facility] [employer]. Comment on above: Patient Position: Sitting; Cuff Location : Left Arm; Cuff Size: Standard 06-16-2017 16:04-0500 Body height 171.63 cm Naheed Her JAVAD Work Phone: [place] [facility] [employer]. 06-16-2017 16:04-0500 Body mass index (BMI) [Ratio] 22.33 kg/m2 Naheed Her LPN Work Phone: [employer] 06-16-2017 16:04-0500 Body surface area Derived from formula 1.77 m2 Naheed Her LPN Work Phone: [employer] 06-16-2017 16:04-0500 Body weight 65.77 kg Naheed Her LPN Work Phone: [place] [place]. 06-16-2017 16:04-0500 Diastolic blood pressure 76 mm[Hg] Naheed Her LPN Work Phone: [employer]; [place]. Comment on above: Patient Position: Sitting; Cuff Location : Left Arm; Cuff Size: Standard 06-16-2017 16:04-0500 Heart rate 86 /min Naheed Her LPN Work Phone: [employer]; [place]. Comment on above: Pattern: Regular 06-16-2017 16:04-0500 Systolic blood pressure 121 mm[Hg] Naheed Her LPN Work Phone: [employer]; [place]. Comment on above: Patient Position: Sitting; Cuff Location : Left Arm; Cuff Size: Standard 04-14-2017 16:06-0400 Body height 171.63 cm Naheed Her LPN Work Phone: [employer]; [place]. 04-14-2017 16:06-0400 Body mass index (BMI) [Ratio] 21.1 kg/m2 Naheed Taina CRYPTOLOGICAL TECHNICIAN Work Phone: [employer] [place]. 04-14-2017 16:06-0400 Body surface area Derived from formula 1.73 m2 Naheed Taina CRYPTOLOGICAL TECHNICIAN Work Phone: [employer]; [place]. 04-14-2017 16:06-0400 Body weight 62.14 kg Naheedtanner Koenigy CRYPTOLOGICAL TECHNICIAN Work Phone: [facility] [place]. 02-17-2017 11:46-0400 Body height 171.63 cm Naheedtanner Koenigy CRYPTOLOGICAL TECHNICIAN Work Phone: [employer] [place]. 02-17-2017 11:46-0400 Body mass index (BMI) [Ratio] 21.1 kg/m2 Naheed Taina CRYPTOLOGICAL TECHNICIAN Work Phone: [employer] [place]. 02-17-2017 11:46-0400 Body surface area Derived from formula 1.73 m2 Naheedtanner Koenigy CRYPTOLOGICAL TECHNICIAN Work Phone: [employer] [place]. 02-17-2017 11:46-0400 Body weight 62.14 kg Naheedtanner Koenigy CRYPTOLOGICAL TECHNICIAN Work Phone: [employer] [place]. 02-17-2017 11:46-0400 Diastolic blood pressure 73 mm[Hg] Naheedtanner Koenigy CRYPTOLOGICAL TECHNICIAN Work Phone: [employer] [place]. Comment on above: Patient Position: Sitting; Cuff Location : Left Arm; Cuff Size: Standard 02-17-2017 11:46-0400 Heart rate 106 /min Naheed Koenigy CRYPTOLOGICAL TECHNICIAN Work Phone: [employer] [place]. Comment on above: Pattern: Regular 02-17-2017 11:46-0400 Systolic blood pressure 109 mm[Hg] Naheed Taina CRYPTOLOGICAL TECHNICIAN Work Phone: [employer] [place]. Comment on above: Patient Position: Sitting; Cuff Location : Left Arm; Cuff Size: Standard 12-16-2016 09:37-0400 Body height 171.63 cm Naheedtanner Koenigy CRYPTOLOGICAL TECHNICIAN Work Phone: [employer] [place]. 12-16-2016 09:37-0400 Body mass index (BMI) [Ratio] 23.25 kg/m2 Naheed Her LPN Work Phone: [employer] [place]. 12-16-2016 09:37-0400 Body surface area Derived from formula 1.81 m2 Naheed Her LPN Work Phone: [employer] [place]. 12-16-2016 09:37-0400 Body temperature 99.6 [degF] Naheed Her LPN Work Phone: [employer] [place]. Comment on above: Method: Tympanic 12-16-2016 09:37-0400 Body weight 68.49 kg Naheed Her LPN Work Phone: [employer] [place]. 12-16-2016 09:37-0400 Diastolic blood pressure 71 mm[Hg] Naheed Her LPN Work Phone: [employer] [place]. Comment on above: Patient Position: Sitting; Cuff Location : Right Arm; Cuff Size: Standard 12-16-2016 09:37-0400 Heart rate 101 /min Naheed Her LPN Work Phone: [employer]; [place]. Comment on above: Pattern: Regular 12-16-2016 09:37-0400 Systolic blood pressure 126 mm[Hg] Naheed Her LPN Work Phone: [employer] [place]. Comment on above: Patient Position: Sitting; Cuff Location : Right Arm; Cuff Size: Standard 12-09-2016 09:45-0400 Body weight 75.3 kg Naheed Her LPN Work Phone: [employer] [place]. 12-09-2016 09:45-0400 Diastolic blood pressure 73 mm[Hg] Naheed Her LPN Work Phone: [employer] [employer]. Comment on above: Patient Position: Sitting; Cuff Location : Left Arm; Cuff Size: Standard 12-09-2016 09:45-0400 Heart rate 87 /min Naheed Taina CRYPTOLOGICAL TECHNICIAN Work Phone: [employer] [place]. Comment on above: Pattern: Regular 12-09-2016 09:45-0400 Systolic blood pressure 120 mm[Hg] Naheed Taina CRYPTOLOGICAL TECHNICIAN Work Phone: [employer] [place]. Comment on above: Patient Position: Sitting; Cuff Location : Left Arm; Cuff Size: Standard 12-03-2016 16:46-0400 Body weight 76.2 kg Neilee L Vess CRYPTOLOGICAL TECHNICIAN [facility] [place]. 12-03-2016 16:46-0400 Diastolic blood pressure 72 mm[Hg] Neilee L Vess CRYPTOLOGICAL TECHNICIAN [employer] [place]. Comment on above: Patient Position: Sitting; Cuff Location : Right Arm; Cuff Size: Standard 12-03-2016 16:46-0400 Heart rate 85 /min Neilee L Vess CRYPTOLOGICAL TECHNICIAN [employer] [place]. Comment on above: Pattern: Regular 12-03-2016 16:46-0400 Systolic blood pressure 120 mm[Hg] Neilee L Vess CRYPTOLOGICAL TECHNICIAN [employer] [place]. Comment on above: Patient Position: Sitting; Cuff Location : Right Arm; Cuff Size: Standard 11-26-2016 16:05-0400 Body weight 75.3 kg Neilee L Vess CRYPTOLOGICAL TECHNICIAN [employer] [place]. 11-26-2016 16:05-0400 Diastolic blood pressure 74 mm[Hg] Neilee L Vess CRYPTOLOGICAL TECHNICIAN [employer] [place]. Comment on above: Patient Position: Sitting; Cuff Location : Left Arm; Cuff Size: Standard 11-26-2016 16:05-0400 Heart rate 91 /min Neilee L Vess CRYPTOLOGICAL TECHNICIAN [employer] [place]. Comment on above: Pattern: Regular 11-26-2016 16:05-0400 Systolic blood pressure 119 mm[Hg] Neilee L Vess CRYPTOLOGICAL TECHNICIAN [employer] [place]. Comment on above: Patient Position: Sitting; Cuff Location : Left Arm; Cuff Size: Standard 11-18-2016 16:31-0400 Body weight 74.39 kg Naheed Taina CRYPTOLOGICAL TECHNICIAN Work Phone: [employer] [place]. 11-18-2016 16:31-0400 Diastolic blood pressure 72 mm[Hg] Naheed Taina CRYPTOLOGICAL TECHNICIAN Work Phone: [employer] [place]. Comment on above: Patient Position: Sitting; Cuff Location : Left Arm; Cuff Size: Standard 11-18-2016 16:31-0400 Heart rate 83 /min Naheed Taina CRYPTOLOGICAL TECHNICIAN Work Phone: [employer]; [place]. Comment on above: Pattern: Regular 11-18-2016 16:31-0400 Systolic blood pressure 114 mm[Hg] Naheed Taina CRYPTOLOGICAL TECHNICIAN Work Phone: [employer]; [place]. Comment on above: Patient Position: Sitting; Cuff Location : Left Arm; Cuff Size: Standard 11-12-2016 16:49-0400 Body weight 74.39 kg Neilee L Vess CRYPTOLOGICAL TECHNICIAN [employer] [place]. 11-12-2016 16:49-0400 Diastolic blood pressure 62 mm[Hg] Neilee L Vess CRYPTOLOGICAL TECHNICIAN [place] [place]. Comment on above: Patient Position: Sitting; Cuff Location : Right Arm; Cuff Size: Standard 11-12-2016 16:49-0400 Heart rate 89 /min Neilee L Vess CRYPTOLOGICAL TECHNICIAN [facility] [place]. Comment on above: Pattern: Regular 11-12-2016 16:49-0400 Systolic blood pressure 111 mm[Hg] Neilee L Vess CRYPTOLOGICAL TECHNICIAN [employer] [place]. Comment on above: Patient Position: Sitting; Cuff Location : Right Arm; Cuff Size: Standard 11-05-2016 16:38-0400 Body weight 73.48 kg Neilee L Vess CRYPTOLOGICAL TECHNICIAN [employer] [place]. 11-05-2016 16:38-0400 Diastolic blood pressure 71 mm[Hg] Neilee L Vess CRYPTOLOGICAL TECHNICIAN [employer] [place]. Comment on above: Patient Position: Sitting; Cuff Location : Left Arm; Cuff Size: Standard 11-05-2016 16:38-0400 Heart rate 95 /min Neilee L Vess CRYPTOLOGICAL TECHNICIAN [employer] [place]. Comment on above: Pattern: Regular 11-05-2016 16:38-0400 Systolic blood pressure 109 mm[Hg] Neilee L Vess CRYPTOLOGICAL TECHNICIAN [employer] [place]. Comment on above: Patient Position: Sitting; Cuff Location : Left Arm; Cuff Size: Standard 09-18-2016 16:12-0500 Body weight 71.22 kg Naheed Taina CRYPTOLOGICAL TECHNICIAN Work Phone: [employer] [place]. 09-18-2016 16:12-0500 Diastolic blood pressure 76 mm[Hg] Naheed Taina CRYPTOLOGICAL TECHNICIAN Work Phone: [employer] [place]. Comment on above: Patient Position: Sitting; Cuff Location : Left Arm; Cuff Size: Standard 09-18-2016 16:12-0500 Heart rate 96 /min Naheed Taina CRYPTOLOGICAL TECHNICIAN Work Phone: [employer].; [place]. Comment on above: Pattern: Regular 09-18-2016 16:12-0500 Systolic blood pressure 118 mm[Hg] Naheed Taina CRYPTOLOGICAL TECHNICIAN Work Phone: [employer] [place]. Comment on above: Patient Position: Sitting; Cuff Location : Left Arm; Cuff Size: Standard 08-20-2016 16:08-0500 Body weight 68.04 kg Juana Greene RN Work Phone: [employer] [place]. 08-20-2016 16:08-0500 Diastolic blood pressure 75 mm[Hg] Juana Greene RN Work Phone: [employer] [place]. Comment on above: Patient Position: Sitting; Cuff Location : Right Arm; Cuff Size: Standard 08-20-2016 16:08-0500 Heart rate 103 /min Juana Greene RN Work Phone: [employer] [place]. Comment on above: Pattern: Regular 08-20-2016 16:08-0500 Systolic blood pressure 119 mm[Hg] Juana Greene RN Work Phone: [employer] [place]. Comment on above: Patient Position: Sitting; Cuff Location : Right Arm; Cuff Size: Standard 08-10-2016 13:56-0500 Body weight 68.04 kg Naheed Taina CRYPTOLOGICAL TECHNICIAN Work Phone: [employer] [place]. 08-10-2016 13:56-0500 Diastolic blood pressure 70 mm[Hg] Naheed Taina CRYPTOLOGICAL TECHNICIAN Work Phone: [employer] [place]. Comment on above: Patient Position: Sitting; Cuff Location : Left Arm; Cuff Size: Standard 08-10-2016 13:56-0500 Heart rate 91 /min Naheed Taina CRYPTOLOGICAL TECHNICIAN Work Phone: [employer] [place]. Comment on above: Pattern: Regular 08-10-2016 13:56-0500 Systolic blood pressure 120 mm[Hg] Naheed Taina CRYPTOLOGICAL TECHNICIAN Work Phone: [employer] [place]. Comment on above: Patient Position: Sitting; Cuff Location : Left Arm; Cuff Size: Standard 07-15-2016 16:07-0500 Body weight 67.13 kg Naheed Taina CRYPTOLOGICAL TECHNICIAN Work Phone: [employer] [place]. 07-15-2016 16:07-0500 Diastolic blood pressure 71 mm[Hg] Naheed Taina CRYPTOLOGICAL TECHNICIAN Work Phone: [employer] [place]. Comment on above: Patient Position: Sitting; Cuff Location : Left Arm; Cuff Size: Standard 07-15-2016 16:07-0500 Heart rate 83 /min Naheed Taina CRYPTOLOGICAL TECHNICIAN Work Phone: [employer] [place]. Comment on above: Pattern: Regular 07-15-2016 16:07-0500 Systolic blood pressure 112 mm[Hg] Naheed Taina CRYPTOLOGICAL TECHNICIAN Work Phone: [employer] [place]. Comment on above: Patient Position: Sitting; Cuff Location : Left Arm; Cuff Size: Standard 06-10-2016 13:12-0500 Body weight 65.32 kg Naheed Taina CRYPTOLOGICAL TECHNICIAN Work Phone: [employer] [place]. 06-10-2016 13:12-0500 Diastolic blood pressure 69 mm[Hg] Naheed Taina CRYPTOLOGICAL TECHNICIAN Work Phone: [employer] [place]. Comment on above: Patient Position: Sitting; Cuff Location : Left Arm; Cuff Size: Standard 06-10-2016 13:12-0500 Heart rate 86 /min Naheed Taina CRYPTOLOGICAL TECHNICIAN Work Phone: [employer] [place]. Comment on above: Pattern: Regular 06-10-2016 13:12-0500 Systolic blood pressure 113 mm[Hg] Naheed Taina CRYPTOLOGICAL TECHNICIAN Work Phone: [employer] [place]. Comment on above: Patient Position: Sitting; Cuff Location : Left Arm; Cuff Size: Standard 05-12-2016 09:41-0400 Body weight 65.32 kg Neilee L Vess CRYPTOLOGICAL TECHNICIAN [facility] [place]. 05-12-2016 09:41-0400 Diastolic blood pressure 75 mm[Hg] Neilee L Vess CRYPTOLOGICAL TECHNICIAN [employer] [place]. Comment on above: Patient Position: Sitting; Cuff Location : Right Arm; Cuff Size: Standard 05-12-2016 09:41-0400 Heart rate 104 /min Neilee L Vess CRYPTOLOGICAL TECHNICIAN [employer] [place]. Comment on above: Pattern: Regular 05-12-2016 09:41-0400 Systolic blood pressure 120 mm[Hg] Neilee L Vess CRYPTOLOGICAL TECHNICIAN [employer] [place]. Comment on above: Patient Position: Sitting; Cuff Location : Right Arm; Cuff Size: Standard 05-01-2016 15:37-0400 Body height 171.63 cm Naheed Taina CRYPTOLOGICAL TECHNICIAN Work Phone: [employer]; [place]. 05-01-2016 15:37-0400 Body mass index (BMI) [Ratio] 21.87 kg/m2 Naheed Taina CRYPTOLOGICAL TECHNICIAN Work Phone: [employer].; [employer] 05-01-2016 15:37-0400 Body surface area Derived from formula 1.76 m2 Naheed Taina CRYPTOLOGICAL TECHNICIAN Work Phone: [employer]; [place]. 05-01-2016 15:37-0400 Body weight 64.41 kg Naheed Taina CRYPTOLOGICAL TECHNICIAN Work Phone: [employer].; [employer]. 05-01-2016 15:37-0400 Diastolic blood pressure 82 mm[Hg] Naheed Taina CRYPTOLOGICAL TECHNICIAN Work Phone: [employer] [place]. Comment on above: Patient Position: Sitting; Cuff Location : Left Arm; Cuff Size: Standard 05-01-2016 15:37-0400 Heart rate 102 /min Naheed Taina CRYPTOLOGICAL TECHNICIAN Work Phone: [employer] [place]. Comment on above: Pattern: Regular 05-01-2016 15:37-0400 Systolic blood pressure 127 mm[Hg] Naheed Taina CRYPTOLOGICAL TECHNICIAN Work Phone: [employer] [place]. Comment on above: Patient Position: Sitting; Cuff Location : Left Arm; Cuff Size: Standard 04-04-2015 11:29-0400 Body height 171.63 cm Jessica Young RN [employer] [place]. 04-04-2015 11:29-0400 Body mass index (BMI) [Ratio] 21.25 kg/m2 Jessica Young RN [employer].; [place]. 04-04-2015 11:29-0400 Body surface area Derived from formula 1.74 m2 Jessica Young RN [employer].; [place]. 04-04-2015 11:29-0400 Body weight 62.6 kg Jessica Young RN [employer].; [place]. 04-04-2015 11:29-0400 Diastolic blood pressure 78 mm[Hg] Jessica Young RN [employer] [place]. Comment on above: Patient Position: Sitting; Cuff Location : Left Arm; Cuff Size: Standard 04-04-2015 11:29-0400 Systolic blood pressure 116 mm[Hg] Jessica Young RN [employer] [place]. Comment on above: Patient Position: Sitting; Cuff Location : Left Arm; Cuff Size: Standard 03-11-2015 14:15-0400 Body height 171.45 cm Jessica Young RN [employer] [place]. 03-11-2015 14:15-0400 Body mass index (BMI) [Ratio] 21.29 kg/m2 Jessica Young RN [employer].; [place]. 03-11-2015 14:15-0400 Body surface area Derived from formula 1.74 m2 Jessica Young RN [employer].; [place]. 03-11-2015 14:15-0400 Body temperature 99.1 [degF] Jessica Young RN [employer] [place]. Comment on above: Method: Tympanic 03-11-2015 14:15-0400 Body weight 62.6 kg Jessica Young RN [facility] [employer]. 03-11-2015 14:15-0400 Diastolic blood pressure 80 mm[Hg] [facility] [employer]. Comment on above: Patient Position: Sitting; Cuff Location : Left Arm; Cuff Size: Standard 03-11-2015 14:15-0400 Heart rate 73 /min Jessica Young RN [facility] [facility] [employer]. Comment on above: Pattern: Regular 03-11-2015 14:15-0400 Systolic blood pressure 126 mm[Hg] Jessica Young RN [place] [employer].; [employer]. Comment on above: Patient Position: Sitting; Cuff Location : Left Arm; Cuff Size: Standard 02-08-2014 10:030400 Body height 146.05 cm Jessica Young RN [facility] [facility] [employer]. 02-08-2014 10:03-0400 Body mass index (BMI) [Ratio] 29.24 kg/m2 Jessica Young RN [facility] [employer]. 02-08-2014 10:03-0400 Body surface area Derived from formula 1.54 m2 Jessica Young RN [place] [facility].; [employer]. 02-08-2014 10:03-0400 Body temperature 99.6 [degF] Jessica Young RN [place] [employer].; [employer]. Comment on above: Method: Tympanic 02-08-2014 10:030400 Body weight 62.37 kg Jessica Young RN [facility].; [place]. 02-08-2014 10:030400 Diastolic blood pressure 69 mm[Hg] Jessica Young RN [place] [employer].; [employer]. Comment on above: Patient Position: Sitting; Cuff Location : Left Arm; Cuff Size: Standard 02-08-2014 10:03-0400 Heart rate 85 /min Jessica Young RN [place] [employer]. Comment on above: Pattern: Regular 02-08-2014 10:03-0400 Systolic blood pressure 108 mm[Hg] Jessica Young RN [facility].; [facility]. Comment on above: Patient Position: Sitting; Cuff Location : Left Arm; Cuff Size: Standard Encounters Encounter Date Encounter Type Care Provider Facility Start: 04-12-2025 ambulatory Alanis BARNETT Facil ity:[facility] Start: 03-29-2025 End: 03-29-2025 Telemedicine consultation with patient Bobbi De LaP az MD Work Phone: [facility] Start: 03-29-2025 End: 03-29-2025 ambulatory Bobbi De La Paz MD Work Phone: [facility] Comment on above: Esophagitis (Primary Dx); Malignant neoplasm of thyroid gland (HCC) Start: 03-22-2025 Encounter for other preprocedural examination David Cano [facility] Start: 03-13-2025 End: 03-16-2025 ambulatory Bobbi De La Paz MD Work Phone: [facility] Comment on above: Medication Start: 03-01-2025 End: 03-01-2025 ambulatory BOBBI DE LA PAZ Facility:[facility] Start: 03-01-2025 ambulatory Alanis BARNETT Facil ity:[facility] Start: 03-01-2025 Non-patient / Non-visit Dr. David Cano MD -[facility] Start: 03-01-2025 End: 03-01-2025 Admission to same day surgery center Dr. David Cano MD -Endoscopy Work Phone: Start: 03-01-2025 End: 03-01-2025 ambulatory Alanis BARNETT Work Phone: -Endoscopy Start: 02-14-2025 End: 02-14-2025 Telephone encounter Bobbi De La Paz MD Work Phone: [facility] Comment on above: Post Op Start: 02-13-2025 End: 02-13-2025 Telemedicine consultation with patient Bobbi De La Paz MD Work Phone: [facility] Start: 02-13-2025 End: 02-13-2025 ambulatory Bobbi De La Paz MD Work Phone: [facility] [place] Comment on above: Malignant neoplasm o f thyroid gland (HCC) Start: 01-30-2025 End: 01-30-2025 Telephone encounter Jeyson Bustamante MD Work Phone: Endocrine Surgery Comment on above: Appointment (Left a message for patient to call [phone] to schedule a Consult with a Endo [...] Endocrine Surgery Start: 01-29-2025 End: 01-29-2025 ambulatory [facility] Facility:[facility] Start: 01-17-2025 End: 01-17-2025 Telephone encounter Jeyson Bustamante MD Work Phone: Endocrine Surgery Start: 01-16-2025 End: 01-17-2025 Admission to same day surgery center Jeyson Bustamante MD Work Phone: Endocrine Surgery Comment on above: Work Release Start: 01-16-2025 End: 01-17-2025 ambulatory Jeyson Bustamante MD Work Phone: Endocrine Surgery Start: 01-11-2025 End: 01-12-2025 ambulatory JEYSON BUSTAMANTE Facility:[facility] Start: 01-02-2025 End: 01-02-2025 Admission to establishment [facility] Start: 01-02-2025 End: 01-02-2025 Anesthesia consultation [facility] Comment on above: Esophagitis (Primary Dx); Papillary carcinoma of thyroid (HCC); PONV (postoperative nausea and vomiting); Anxiety; History of lobectomy of thyroid Start: 01-02-2025 End: 01-02-2025 ambulatory ALANIS J BATISTA Facility:[facility] Start: 12-06-2024 End: 12-13-2024 Orders Only Jeyson [...] Non-patient / Non-visit Dr. David Cano MD -[facility] Start: 10-26-2024 End: 10-26-2024 Admission to same day surgery center Dr. David Cano MD -Endoscopy Work Phone: Start: 10-26-2024 End: 10-26-2024 ambulatory Alanis Batista PA Work Phone: [facility] Work Phone: Start: 10-20-2024 End: 10-20-2024 ambulatory Alanis Batista PA Work Phone: [facility] Work Phone: Start: 10-20-2024 End: 10-20-[address] David Cano MD -Ultrasound, [facility] Work Phone: Start: 10-20-2024 End: 10-20-2024 ambulatory Alanis Batista PA Facility:[facility] Start: 10-04-2024 End: 10-04-2024 ambulatory Alanis Batista PA Work Phone: [facility] Work Phone: Start: 10-04-2024 End: 10-04-[address] David Cano MD -Laboratory, Specimen Work Phone: Start: 10-04-2024 End: 10-04-[address] David Cano MD -[facility] Work Phone: Start: 10-04-2024 End: 10-04-2024 ambulatory Alanisgolden Paceer PA Facility:[facility] Start: 10-04-2024 Non-patient / Non-visit Dr. Ramsey Sinclair MD -[facility] Start: 10-04-2024 End: 10-04-2024 ambulatory Alanis Batista PA Facility:[facility] Start: 09-06-2024 End: 09-06-2024 Orders Alanis Batista PA-C Work Phone: [employer]. Start: 09-04-2024 End: 09-04-2024 Patient encounter procedure Alanis Paceer PA -Ultrasound, [facility] Work Phone: Start: 09-04-2024 End: 09-04-2024 ambulatory Alanisgolden Paceer PA Facility:[facility] Start: 08-31-2024 End: 08-31-2024 Orders Alanis Batista PA-C Work Phone: [employer]. Start: 08-30-2024 End: 08-30-2024 Patient encounter procedure Alanis Batista PA-C Work Phone: [employer]. Start: 08-30-2024 ambulatory [facility] Start: 08-30-2024 Patient encounter status Juliet Patten CRYPTOLOGICAL TECHNICIAN [employer] [employer]. Start: 08-30-2024 Review Alanis Batista PA-C Work Phone: [employer]. Start: 01-19-2024 End: 01-19-2024 Medication Alanis Batista PA-C Work Phone: [employer]. Start: 07-14-2023 End: 07-14-2023 Patient encounter procedure Alanis Batista PA-C Work Phone: [employer] Start: 05-13-2023 Non-patient / Non-visit PA Alanis Paceer ANIBAL Work Phone: [facility] Start: 05-13-2023 End: 05-13-2023 Admission to same day surgery center PA Alanisgolden Batista ANIBAL Work Phone: [facility]-Endoscopy Work Phone: Start: 05-13-2023 End: 05-13-2023 ambulatory PA Alanis Batista ANIBAL Work Phone: [facility] Work Phone: Start: 04-21-2023 End: 04-21-2023 Patient encounter procedure PA Alanisgolden Batista ANIBAL Work Phone: [facility]-Ultrasound, [facility] Work Phone: Start: 11-02-2022 End: 11-02-2022 Office outpatient visit 25 minutes Alanis Batista PA-C Work Phone: [employer] Start: 05-20-2022 End: 05-20-2022 Medication Alanis Batista PA-C Work Phone: [employer]. Start: 04-28-2022 End: 04-28-2022 Office outpatient visit 15 minutes Alanis Batista PA-C Work Phone: [employer]. Start: 12-10-2021 End: 12-10-2021 Historical Summary Alanis Batista PA-C Work Phone: [employer] Start: 11-25-2021 End: 11-25-2021 Office outpatient visit 15 minutes Alanis Batista PA-C Work Phone: [employer]. Start: 09-01-2021 End: 09-01-2021 Patient encounter procedure Alanis Batista PA-C Work Phone: [employer]. Start: 06-17-2021 End: 06-17-2021 Medication Alanis Batista PA-C Work Phone: [employer]. Start: 06-17-2021 End: 06-17-2021 Patient encounter status Alanis Batista PA-C Work Phone: [employer] [employer] Start: 05-21-2021 End: 05-21-2021 Orders Alanis Batista PA-C Work Phone: [employer]. Start: 05-20-2021 End: 05-20-2021 ambulatory ALANIS BATISTA [facility] Start: 05-12-2021 End: 05-12-2021 Patient encounter procedure Alanis Batista PA-C Work Phone: [employer]. Start: 05-12-2021 End: 05-12-2021 Patient encounter status Alanis Batista PA-C Work Phone: [employer] [employer] Start: 03-03-2021 End: 03-03-2021 Medication Alanis Paceer PA-C Work Phone: [employer]. Start: 12-06-2020 End: 12-06-2020 ambulatory [facility] Start: 12-05-2020 End: 12-05-2020 Patient encounter procedure Alanis Paceer PA-C Work Phone: [employer]. Start: 11-06-2020 End: 11-06-2020 Telephone follow-up Alanis Paceer PA-C Work Phone: [employer]. Start: 11-01-2020 End: 11-01-2020 Emergency department patient visit [facility] Start: 09-19-2020 End: 09-19-2020 ambulatory [facility] Start: 09-19-2020 End: 09-19-2020 Patient encounter procedure Alanisgolden Paceer PA-C Work Phone: [employer] Start: 08-19-2020 End: 08-19-2020 Office outpatient visit 15 minutes Alanis Paceer PA-C Work Phone: [employer]. Start: 03-06-2020 End: 03-06-2020 Patient encounter procedure Alanisgolden Paceer PA-C Work Phone: [employer]. Start: 06-13-2019 End: 06-13-2019 Patient encounter procedure Alanisgolden Paceer PA-C Work Phone: [employer] Start: 05-17-2019 End: 05-17-2019 Patient encounter procedure Alanisgolden Paceer PA-C Work Phone: [employer] Start: 04-27-2019 End: 04-27-2019 Office outpatient visit 10 minutes Alanis Paceer PA-C Work Phone: [employer] Start: 04-25-2019 End: 04-25-2019 Patient encounter procedure Alanisgolden Paceer PA-C Work Phone: [employer] Start: 04-17-2019 End: 04-17-2019 Orders Alanis Paceer PA-C Work Phone: [employer]. Start: 12-05-2018 End: 12-05-2018 Telephone follow-up Alanis Paceer PA-C Work Phone: [employer] Start: 06-15-2018 End: 06-15-2018 Nursing evaluation of patient and report Alanis Paceer PA-C Work Phone: [employer]. Start: 08-05-2017 End: 08-15-2017 Patient encounter procedure Alanis Batista PA-C Work Phone: [employer] Start: 06-16-2017 End: 06-16-2017 Patient encounter procedure Alanis Batista PA-C Work Phone: [employer] Start: 04-14-2017 End: 04-14-2017 Procedure Alanis Batista PA-C Work Phone: [employer]. Start: 02-17-2017 End: 02-17-2017 Patient encounter procedure Alanis Paceer PA-C Work Phone: [employer]. Start: 12-16-2016 End: 12-16-2016 Patient encounter procedure Alanisgolden Paceer PA-C Work Phone: [employer]. Start: 12-15-2016 End: 12-16-2016 Orders Alanis Paceer PA-C Work Phone: [employer]. Start: 12-09-2016 End: 12-09-2016 Patient encounter procedure Alanis Paceer PA-C Work Phone: [employer]. Start: 12-03-2016 End: 12-04-2016 Patient encounter procedure Alanisgolden Paceer PA-C Work Phone: [employer]. Start: 11-26-2016 End: 11-26-2016 Patient encounter procedure Alanisgolden Paceer PA-C Work Phone: [employer]. Start: 11-18-2016 End: 11-18-2016 Patient encounter procedure Alanis Paceer PA-C Work Phone: [employer]. Start: 11-12-2016 End: 11-12-2016 Patient encounter procedure Alanis Paceer PA-C Work Phone: [employer]. Start: 11-05-2016 End: 11-05-2016 Patient encounter procedure Alanisgolden Paceer PA-C Work Phone: [employer]. Start: 10-22-2016 End: 10-22-2016 Patient encounter procedure Alanis Batista PA-C Work Phone: [employer]. Start: 09-18-2016 End: 09-18-2016 Patient encounter procedure Alanis Batista PA-C Work Phone: [employer]. Start: 08-20-2016 End: 08-20-2016 Patient encounter procedure Alanis Batista PA-C Work Phone: [employer] Start: 08-10-2016 End: 08-10-2016 Patient encounter procedure Alanis BARNETT-C Work Phone: [employer]. Start: 08-10-2016 End: 08-10-2016 Orders Alanis BARNETT-C Work Phone: [employer]. Start: 07-15-2016 End: 07-15-2016 Patient encounter procedure Alanis BARNETT-C Work Phone: [employer]. Start: 06-10-2016 End: 06-10-2016 Patient encounter procedure Alanis BARNETT-C Work Phone: [employer] Start: 05-12-2016 End: 05-12-2016 Patient encounter procedure Alanis BARNETT-C Work Phone: [employer]. Start: 05-01-2016 End: 05-01-2016 Patient encounter procedure Alanis BARNETT-C Work Phone: [employer] Start: 04-04-2015 End: 04-04-2015 Patient encounter procedure Alanis BARNETT-C Work Phone: [employer] Start: 03-11-2015 End: 03-11-2015 Manual pelvic examination Alanis BARNETT-C Work Phone: [employer]; [employer]. Start: 03-11-2015 End: 03-11-2015 Patient encounter procedure Alanis BARNETT-C Work Phone: [employer]. Start: 03-09-2015 End: 03-09-2015 Historical Summary Alanis BARNETT-C Work Phone: [employer] Start: 02-08-2014 End: 02-08-2014 Manual pelvic examination Alanis Batista PA-C Work Phone: [employer]; [employer]. Start: 02-08-2014 End: 02-08-2014 Patient encounter procedure Alanis Batista PA-C Work Phone: [facility] Patient encounter procedure Alanis Batista PA-C Work Phone: [facility] Patient encounter status Juliet Collier [employer]line [employer] [facility] Patient encounter status Juliet oCllier [employer] [facility].; [facility]. Procedures Date Procedure Procedure Detail Performing Clinician [...] benign lesions up to 14 Supriya D Pleasanton PA-C Work Phone: Start: 03-11-2015 End: 03-11-2015 Destruction benign lesions up to 14 Supriya D [place] PA-C Work Phone: Start: 02-08-2014 End: 02-08-2014 Lab findings surveillance June Winkler Comment on above: 73 Start: 02-08-2014 End: 02-08-2014 Lipid panel June Lamas LPN Comment on above: chol -204 Start: 07-19-2001 End: 07-19-2001 wisdom teeth extraction Alanis Batista PA-C Work Phone: section Alanis knight PA-C Work Phone: section Juliet zavala CRYPTOLOGICAL TECHNICIAN H/O: section H/O: Frank Young RN H/O: section H/O: Noelle rooney Batista PA-C Work Phone: H/O: section H/O: Noelle Batista PA-C Work Phone: H/O: section H/O: Noelle rooney Batista PA-C Work Phone: Plan of Treatment Date Care Activity Detail Author Start: 09-18-2026 Urine microalbumin profile DTaP,Tdap,Td Vaccine (7 - Td or Tdap) [facility] Start: 07-03-2025 End: 07-03-2025 ambulatory 07/03/2025 9:40 AM EST [facility] [id number] [place] [phone] [place] [id number] [place] [address] month vv [facility] Comment on above: month vv Start: 03-29-2025 End: 03-29-2025 Follow-up encounter 03/29/2025 10:00 AM EDT [facility] [id number] [place] [phone] [place] [address] [address] 6 week follow up [facility] Comment on above: 6 week follow up Start: 03-19-2025 Influenza vaccination [facility] Start: 03-01-2025 Patient discharge [facility] Start: 02-13-2025 End: 05-15-2025 Thyroglobulin and Thyrogobulin Ab panel - Serum or Plasma THYROGLOBULIN, SERUM WITH REFLEX TO IA OR LC-MS/MS Lab Routine Malignant neoplasm of thyroid gland (HCC) Expected: 02/13/2025 (Approximate), Expires: 05/15/2025 [facility] Comment on above: Expected: 02/13/2025 (Approximate), Expi res: 05/15/2025 Start: 02-13-2025 End: 05-15-2025 Thyrotropin [Units/volume] in Serum or Plasma THYROID STIMULATING HORMONE Lab Routine Malignant neoplasm of thyroid gland (HCC) Expected: 02/13/2025 (Approximate), Expires: 05/15/2025 [facility] Comment on above: Expected: 02/13/2025 (Approximate), Expi res: 05/15/2025 Start: 02-13-2025 End: 05-15-2025 Thyroxine (T4) free [Mass/volume] in Serum or Plasma T4 FREE/FREE THYROXINE Lab Routine Malignant neoplasm of thyroid gland (HCC) Expected: 02/13/2025 (Approximate), Expires: 05/15/2025 [facility] Work Phone: Comment on above: Expected: 02/13/2025 (Approximate), Expi res: 05/15/2025 Start: 01-29-2025 End: 01-29-2025 Admission to same day surgery center 01/29/2025 9:00 AM EDT [facility] Endocrine Surgery [address] [place] [address] David Winter MD [address] [place] [address] post op Endocrine Surgery Comment on above: post op Start: 01-11-2025 End: 01-11-2025 Admission to same day surgery center 01/11/2025 9:30 AM EDT - 01/11/2025 1:00 PM EDT Surgery [facility] Surgery [address] [place] [address] Jeyson Bustamante MD [address] [address] BIOPSY OR EXCISION LYMPH NODE(S) OPEN, DEEP CERVICAL [facility] Surgery Comment on above: BIOPSY OR [...] physician 01/11/2025 9:30 AM EDT Hospital Encounter [facility] Surgery [address] [place], [place] [id number] Jeyson Bustamante MD [address] [address] Papillary carcinoma of thyroid (HCC) [C73] [facility] Surgery Comment on above: Papillary carcinoma of thyroid (HCC) [C7 3] Start: 01-11-2025 End: 01-11-2025 Admission to same day surgery center 01/11/2025 7:30 AM EDT - 01/11/2025 11:00 AM EDT Surgery [facility] Surgery [address] [place] [address] Jeyson Bustamante MD [address] [place] [id number] BIOPSY OR EXCISION LYMPH NODE(S) OPEN, DEEP CERVICAL [facility] Surgery Comment on above: BIOPSY OR [...] physician 01/11/2025 7:30 AM EDT Hospital Encounter [facility] Surgery [address] [place] [address] Jeyson Bustamante MD [address] [place] [address] Papillary carcinoma of thyroid (HCC) [C73] [facility] Surgery Comment on above: Papillary carcinoma of thyroid (HCC) [C7 3] Start: 11-27-2024 End: 11-27-2024 Patient encounter procedure 11/27/2024 3:00 PM EDT Office Visit Endocrine Surgery [address] [place] [id number] Jeyson Bustamante MD [address] [place] [address] INTAKE PENDING-Pls schedule NEW thyroid with Dr. Smith on 11/22/2024 @ 10:30am, pt. aware. Francisco NEGRON Endocrine Surgery Comment on above: INTAKE PENDING-Pls schedule NEW thyroid with Dr. Smith on 11/22/2024 @ 10:30am, pt. aware. Francisco NEGRON Start: 10-26-2024 Patient discharge [facility] Start: 08-31-2024 Us soft tissue head & neck real time imge docm Thyroid Ultrasound (52561) Start: 31-Aug-2024 Intent Comments: Please call pt to schedule appt. [facility]. Comment on above: Please call pt to schedule appt. Start: 08-30-2024 Blood count complete auto&auto difrntl wbc CBC, PLATELETS & AUT DIFF (F) (05021) Start: 30-Aug-2024 14:00-05:00 Request [employer].; [employer]. Start: 08-30-2024 Assay of thyroid stimulating hormone tsh TSH (THYROID STIMULATING HORMONE) (31178) Start: 30-Aug-2024 13:55-05:00 Request [employer].; [employer], [employer]. Start: 08-30-2024 Assay of triiodothyronine t3 free T3 FREE (54535) Start: 30-Aug-2024 13:55-05:00 Request [employer] [employer]. Start: 08-30-2024 Assay of free thyroxine THYROXINE (T4) FREE (05911) Start: 30-Aug-2024 13:55-05:00 Request [employer] [employer]. Start: 08-30-2024 Patient encounter procedure Medical; PHYSICAL - awv [employer]. Start: 30-Aug-2024 13:10-05:00 VALARIE Batista Appointment Request [employer]. Start: 08-16-2024 Nursing evaluation of patient and report Medical; Nurse visit - DOROTHEA armstrongp [employer]. Start: 16-Aug-2024 09:00-05:00 ROOM, PROCEDURE (DRAW) Appointment [facility] Start: 03-19-2024 Covid-19 Vaccine ( season) Covid-19 Vaccine ( season) [facility] Start: 03-19-2024 Covid-19 Vaccine ( season) Covid-19 Vaccine () [facility] Start: 05-13-2023 Patient discharge [facility] Start: 2012 HPV Vaccine (1 - 3-dose SCDM series) HPV Vaccine (1 - 3-dose SCDM series) [facility] Start: 2006 Screening for malignant neoplasm of cervix Cervical Cancer Screening [facility] Start: 2004 Hepatitis B Vaccine (1 of 3 - 19+ 3-dose series) Hepatitis B Vaccine (1 of 3 - 19+ 3-dose series) [facility] Start: 2004 Urine microalbumin profile DTaP,Tdap,Td Vaccine (1 - Tdap) [facility] Start: 2003 Anxiety Screening Anxiety Screening [facility] Start: 2003 Depression Screening Depression Screening [facility] Start: 2003 Hepatitis C screening Hepatitis C Screening [facility] Start: 2003 HIV screening HIV Screening [facility] Patient referral [facility] Work Phone: Immunizations Immunization Date Immunization Notes Care Provider Salima cortes 04-18-2021 influenza, injectabl e, quadrivalent, contains preservative Alanis Batista PA-C Work Phone: [employer] 10-21-2020 COVID-Janessa (AD26 .5 ML) Alanis Batista PA-C Work Phone: [employer] [employer]. 06-15-2018 influenza, injectabl e, quadrivalent, contains preservative Alanis Batista PA-C Work Phone: [employer]; [employer] Comment on above: Site: Right DeltoidV IS Given: * Influenza - Inactivated (02/22/15) 06-15-2018 influenza virus vacc ine, unspecified formulation Jeyson Bustamante MD Work Phone: [facility] 05-19-2017 influenza, injectabl e, quadrivalent, contains preservative Alanis Batista PA-C Work Phone: [employer]; [employer] Comment on above: given at work 09-18-2016 tetanus toxoid, redu dayna diphtheria toxoid, and acellular pertussis vaccine, adsorbed Alanis Batista PA-C Work Phone: [employer]; [employer] Comment on above: Site: Deltoid (Left) VIS Given: * Tdap (Tetanus, Diphtheria, Pertussis) (09/11/14) 06-10-2016 unknown vaccine or immune globulin Alanis Batista PA-C Work Phone: [employer]; [employer] 06-10-2016 influenza, injectabl e, quadrivalent, contains preservative Alanis Batista PA-C Work Phone: [employer]; [employer]. Comment on above: Site: Deltoid (Left) VIS Given: * Influenza - Inactivated (02/22/15) 08-01-2004 hepatitis B vaccine, adult dosage Alanis Batista PA-C Work Phone: [employer]; [employer] 03-10-2004 hepatitis B vaccine, adult dosage Alanis Batista PA-C Work Phone: [employer]; [employer] 02-08-2004 hepatitis B vaccine, adult dosage Alanis Batista PA-C Work Phone: [employer]; [employer] 02-08-2004 meningococcal oligosaccharide (groups A, C, Y and W-135) diphtheria toxoid conjugate vaccine (MCV4O) Alanis Batista PA-C Work Phone: [employer]; [facility] 02-08-2004 TD(adult) unspecifie d formulation Alanis Batista PA-C [facility] Phone: [facility] 12-05-1997 measles, mumps and rubella virus vaccine Alanis Batista PA-C Work Phone: [facility] 02-09-1991 diphtheria, tetanus toxoids and acellular pertussis vaccine Alanis Batista PA-C Work Phone: [facility] 01-28-1987 diphtheria, tetanus toxoids and pertussis vaccine Alanis Batista PA-C Work Phone: [facility] 10-30-1986 measles, mumps and rubella virus vaccine Alanis Batista PA-C Work Phone: [facility] 1985 diphtheria, tetanus toxoids and pertussis vaccine Alanis Batista PA-C Work Phone: [facility] 1985 trivalent poliovirus vaccine, live, oral Alanis Batista PA-C Work Phone: [facility] 1985 diphtheria, tetanus toxoids and pertussis vaccine Alanis Batista PA-C Work Phone: [facility] 1985 trivalent poliovirus vaccine, live, oral Alanis Batista PA-C Work Phone: [facility] 1985 diphtheria, tetanus toxoids and pertussis vaccine Alanis Batista PA-C Work Phone: [facility] 1985 trivalent poliovirus vaccine, live, oral Alanis Batista PA-C Work Phone: [facility], [employer] [facility] Payers Date Payer Category Payer Self-pay [id number] 2016 Blue [employer] Blue Shield BLUE CARD PPO OOS [id number] 2016 Unknown [id number] 1985 Unknown [id number] .[id number] 1985 Unknown [id number] [id number] .651 1985 Unknown [id number] [id number] .651 1985 Unknown [id number] .651 Unknown [facility] PACKAGE PLAN [id number] Unknown ANTHEM Unknown [id number] Unknown [id number] .462 Unknown [id number] [id number] .462 Unknown [id number] .462 Unknown [id number] .462 Unknown [id number] .462 Unknown [id number] [id number] .462 Unknown [id number] .462 Unknown [id number] .462 Unknown [id number] .462 Social History Date Type Detail Facility Start: 05-05-2023 Tobacco smoking status MNIS Unknown if ever smoked [facility] Start: 1985 Sex Assigned At Female W [facility] Alcohol Use: Alcohol Use: ; Occasional alcohol use. [employer]. Start: 12-06-2024 End: 01-02-2025 Caffeine Use Caffeine Use [facility] Primary Contro l Method: Primary Control Method: ; Partner had vasectomy. [employer]. Tobacco Use: Tobacco Use: ; N ever smoker. [employer] Occasional alcoh ol use [employer]. Work Phone: Start: 12-06-2023 End: 12-06-2024 Never smoked tobacco [facility] Partner had vasectomy [employer] [facility] Work Phone: Start: 10-12-2024 End: 10-26-2024 Sex Female (finding) [facility] Start: 1985 Sex assigned at Not on file [facility] Start: 12-06-2024 End: 01-02-2025 Gender identity Not on file [facility] Start: 12-06-2024 Tobacco use and exposure Smokeless tobacco non-user [facility] Start: 12-06-2024 End: 01-02-2025 Alcoholic beverage intake Current drinker of alcohol (finding) [facility] Start: 10-25-2024 National Score (1-100), lower number is lower risk 80 [facility] NEGATED: Highlighted row [facility] NEGATED: Highlighted row Not [facility] NEGATED: Highlighted rowStart: NINF History of tobacco use Passive smoker [facility] Medical Equipment Procedure Code Equipment Code Equipment [...] FDA Start: 06-23-2021 Gastrointestinal telemetric monitoring system ([id number] FDA Start: 05-13-2023 Goals Date Patient Goal Desired Activity /State Functional Status Date Assessment Result Facility 01-12-2025 Are you deaf, or do you have serious difficulty hearing No 01/12/2025 8:20 AM Teresa Sanches RN No [facility] 01-12-2025 Are you blind, or do you have serious difficulty seeing, even when wearing glasses No 01/12/2025 8:20 AM Teresa Sanches RN No [facility] 01-12-2025 Do you have serious difficulty walking or climbing stairs No 01/12/2025 8:20 AM Teresa Sanches RN [facility] 01-12-2025 Do you have difficul ty dressing or bathing No 01/12/2025 8:20 AM Teresa Sanches RN No [facility] 01-12-2025 Because of a physica l, mental, or emotional condition, do you have difficulty doing errands alone such as visiting a physician's office or shopping No 01/12/2025 8:20 AM Teresa Sanches RN No [facility] Mental Status Date Assessment Result Facility 03-01-2025 Cognitive function Voice/Name [facility] Work Phone: 01-12-2025 Because of a physica l, mental, or emotional condition, do you have serious difficulty concentrating, remembering, or making decisions No 01/12/2025 8:20 AM Teresa Sanches RN No [facility] 10-26-2024 Cognitive function Voice/Name [facility] Work Phone: 05-13-2023 Cognitive function Level Of Cons ciousness Appropriate;Drowsy [facility] Work Phone: 05-13-2023 Cognitive function Voice/Name [facility] Work Phone: Clinical Notes 05-13-2023 to 03-29-2025 [...] good. Will need MI, she lives in [place], but she is quite willing to just come to [place] to get this done. 2) Current treatment [...] 112 mcg levothyroxine daily. 2) return to ma in 3 months by virtual visit, no [...] ng/dL 1.8 (H) documented in this encounter [facility] 03-29-2025 Note HNO ID: [id number] Author: BOBBI DE LA PAZ MD Service: ? Author Type: Physician Type: Progress Notes Filed: 03/29/2025 11:10 Note Text: Virtual Visit utilizing both audio and video components [employer] I have communicated my name and active licensure. The patient's identity and physical location were verified at the time of this visit. Either the patient or their legal ocean import representative has been informed of the risks and benefits of -- and alternatives to -- treatment through a remote evaluation and consents to proceed with the evaluation remotely. Patient location: [facility] Assessment / Plan Assessment: 1) Thyroid CA ,papillary, with multiple central nodes recently resected by Dr. Bustamante. TG near lower limit of detection after surgery, which is good. Will need MI, she lives in [place], but she is quite willing to just come to [place] to get this done. 2) Current treatment [...] 112 mcg levothyroxine daily. 2) return to ma in 3 months by virtual visit, no [...] x 3 months. 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 [facility] 03-29-2025 History of Presen t illness Narrative Virtual Visit utilizing both audio and video components [employer] I have communicated my name and active licensure. The patient's identity and physical location were verified at the time of this visit. Either the patient or their legal ocean import representative has been informed of the risks and benefits of -- and alternatives to -- treatment through a remote evaluation and consents to proceed with the evaluation remotely. Patient location: [facility] Assessment / Plan Assessment: 1) Thyroid CA ,papillary, with multiple central nodes recently resected by Dr. Bustamante. TG near lower limit of detection after surgery, which is good. Will need MI, she lives in [place], but she is quite willing to just come to [place] to get this done. 2) Current treatment [...] 112 mcg levothyroxine daily. 2) return to ma in 3 months by virtual visit, no [...] x 3 months. 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 cidrnym-khrcxgilw-ujelnia D3 500 mg-5 mcg (200 unit) per tablet Take 1 tablet by mouth three times a day. hydrOXYzine HCl (ATARAX) 25 mg tablet Take 25 mg by mouth once daily. BUDESONIDE ORAL Take by mouth. Pt uses Liquid 2ml in Am and 2ml in pm No current facility-administered medications for this visit. ALLERGIES Allergen Reactions Cefaclor Rash documented in this encounter [facility] 03-01-2025 Consult note [facility] 03-01-2025 Procedure note [facility] 03-01-2025 Procedure note [facility] 03-01-2025 Consult note [facility] 03-01-2025 History and physi richard note [facility] 03-01-2025 Note [facility] Medical Records Department [address] [place] [address] History Physical Exam 03/01/25 0741 MR#: [id number] Acct: [id number] Name: SIMA KEEN Rep #: [id number] : 1985 39 From: David Cano MD PCP: ANIBAL Workman Status:[facility] Location: [place] [address] History and Physical Date of Admission: 03/01/25 Date of Service: 10/04/24 MR#: [id number] Acct: [id number] Name: SIMA KEEN Rep #: [id number] : 1985 Provider: Dr. David Cano MD Age/Sex: 39/F Location: [facility] Status: Signed Intake Vital Signs 12/08/2408:44 [...] sensations, No co (more content not included)... [facility] 03-01-2025 Consult note [facility] 02-14-2025 Telephone encounter Note Pt. Reports concern [...] to clear throat at times. Please advise. [facility] 02-14-2025 Miscellaneous Notes Pt. Reports concern over [...] at times. Please advise. February 14, 2025 [id number] Patient Name: Sima Keen Contact Information: [phone] (home) [phone] (cell) Reason For Call: Patient is calling because she had surgery with Dr. Bustamante on 01/11 and is having concerns with her voice can you please call patient back? Physician: Jeyson Bustamante MD documented in this encounter [facility] 02-14-2025 Telephone encounter Note February 14, 2025 [id number] Patient Name: Sima Keen Contact Information: [phone] (home) [phone] (cell) Reason For Call: Patient is calling because she had surgery with Dr. Bustamante on 01/11 and is having concerns with her voice can you please call patient back? Physician: Jeyson Bustamante MD [facility] 02-14-2025 Telephone encounter Note Images from the original note were not included. Bobbi De La Paz MD P [facility] Clerical Pool please call this patient and help her set up a virtual visit for 6 weeks 1st attempt sent Elyse Perez [facility] 02-14-2025 Miscellaneous Notes Images from the original note were not included. Bobbi De La Paz MD [facility] Clerical Pool please call this patient and help her set up a virtual visit for 6 weeks 1st attempt sent Elyse Perez documented in this encounter [facility] 02-13-2025 Instructions Bobbi De La Paz MD - 02/13/2025 4:03 PM EDT Assessment / Plan Assessment: 1) Thyroid CA ,papillary, with multiple central nodes recently resected by Dr. Bustamante. Will need MI, she lives in [place], I will organize seeing where this can be done, presumably [facility] or possibly [facility]. I'll get labs done now, since she is 1 month postop. Treatment / Plan: 1) continue on 112 mcg levothyroxine daily. 2) get labs done soon, I'll send comment via [employer] about the labs 3) think about when [...] 4.200 mIU/L 2.250 documented in this encounter [facility] 02-13-2025 History of Presen t illness Narrative [...] visit. Either the patient or their legal ocean import representative has been informed of the risks and benefits of -- and alternatives to -- treatment through a remote evaluation and consents to proceed with the evaluation remotely. Patient location: [place], [place]. I spent a total of 60 minutes on the date of the service which included preparing to see the patient, tskz-va-dibw patient care, completing clinical documentation, counseling and educating the patient/family/caregiver, and ordering medications, tests, or procedures. Assessment / Plan Assessment: 1) Thyroid CA ,papillary, with multiple central nodes recently resected by Dr. Bustamante. Will need MI, she lives in [place], I will organize seeing where this can be done, presumably [facility] or possibly [facility]. I'll get labs done now, since she is 1 month postop. Treatment / Plan: 1) continue on 112 mcg levothyroxine daily. 2) get labs done soon, I'll send comment via [employer] about the labs 3) think about when [...] CA History Surgery (06/23/2021): right lobectomy, at [facility], [facility] (01/11/2025): completion thyroidectomy, central nodes resected [...] Procedure Laterality Date [facility] INJ THYROID LOBECTOMY,UNILAT Right No [...] needed (mouth or hand numbness or tingling). tqhetcd-zxzcgxbcp-hwbhgzq D3 500 mg-5 mcg (200 unit) per tablet Take 1 tablet by mouth three times a day. hydrOXYzine HCl (ATARAX) 25 mg tablet Take 25 mg by mouth once daily. BUDESONIDE ORAL Take by mouth. Pt uses Liquid 2ml in Am and 2ml in pm No current facility-administered medications for this visit. ALLERGIES Allergen Reactions Cefaclor Rash documented in this encounter [facility] 02-13-2025 Note HNO ID: [id number] Author: BOBBI DE LA PAZ MD Service: [...] visit. Either the patient or their legal ocean import representative has been informed of the risks and benefits of -- and alternatives to -- treatment through a remote evaluation and consents to proceed with the evaluation remotely. Patient location: [place], [place]. I spent a total of 60 minutes on the date of the service which included preparing to see the patient, yhgd-tf-cqot patient care, completing clinical documentation, counseling and educating the patient/family/caregiver, and ordering medications, tests, or procedures. Assessment / Plan Assessment: 1) Thyroid CA ,papillary, with multiple central nodes recently resected by Dr. Bustamante. Will need MI, she lives in [place], I will organize seeing where this can be done, presumably [facility] or possibly [facility]. I'll get labs done now, since she is 1 month postop. Treatment / Plan: 1) continue on 112 mcg levothyroxine daily. 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 [facility] 01-29-2025 Note HNO ID: [id number] Author: JAYLA CARR MD Service: ? Author [...] Clinical Associate / Fellow Endocrine Surgery [facility] 01-29-2025 History of Presen t illness Narrative [...] Clinical Associate / Fellow Endocrine Surgery [facility] documented in this encounter [facility] 01-17-2025 Miscellaneous Notes Done- e-mailed return to work letter via my chart, ptLeanna NEGRON documented in this encounter [facility] 01-17-2025 Telephone encounter Note Done- e-mailed return to work letter via my chart, ptLeanna NEGRON [facility] 01-17-2025 Telephone encounter Note Summary: Return to work Shanna Abarca, Patient called and is wondering if she can get a return to work form can you help with this please? Call back [phone] [facility] 01-17-2025 Miscellaneous Notes Summary: Return to work Shanna Abarca, Patient called and is wondering if she can get a return to work form can you help with this please? Call back [phone] documented in this encounter [facility] 01-12-2025 Note HNO ID: [id number] Author: DAVID WINTER MD Service: Endocrine Surgery [...] week virtual post-op visit David Winter MD [phone] Clinical Associate Endocrine and Metabolism [place], Department of Endocrine Surgery [facility] 01-11-2025 Note HNO ID: [id number] Author: DAVID WINTER MD Service: Endocrine Surgery [...] in the surgical floor David Winter MD [phone] Clinical Associate Endocrine and Metabolism [place], Department of Endocrine Surgery [facility] 01-11-2025 Note HNO ID: [id number] Author: CHARISMA LARSEN AA Service: Anesthesiology Author Type: Sap Bi Architect Type: Anesthesia Procedure Notes Filed: 01/11/2025 12:59 [...] Successful intubation technique: video laryngoscopy Devices used: [employer]ractice Endotracheal tube insertion site: oral Blade: Yazan [...] January 11, 2025 TIME: 12:58 PM CSN: [id number] [facility] 01-02-2025 Dina Miguel APRN.RN BEHAVIORAL [facility] - 01/02/2025 10:19 AM EDT Images from the original note were not included. [facility] PATIENT PREOPERATIVE INSTRUCTIONS Jeyson Bustamante MD has scheduled you for your procedure at this surgery center: [facility]: [phone] -- [address] [place] [address]. Please read below carefully for your personalized [...] office. If you are currently using a eugs-gvc-ltox injectable or oral medication for diabetes or [...] Procedures: - YOU MUST HAVE A RESPONSIBLE STUDENT OUTREACH COORDINATOR TAKE YOU HOME. A CARTOGRAPHIC DESIGNER OR MEATMAN CANNOT BE MADE A RESPONSIBLE STUDENT OUTREACH COORDINATOR. - We recommend that a responsible person [...] Advance Directive, please fax a copy to [phone] or email to for it to be [...] Dina Najera APRN.STEPHANY documented in this encounter [facility] 01-02-2025 History and physical note Images from [...] visit. Either the patient or their legal ocean import representative has been informed of the risks [...] large neck Non-male patient STOP-Bang Score: 1 [id number] Score: Age: <65 Sex: female CHF history: No Hypertension history: No Stroke/TIA/thromboembolism history: No Vascular disease history: No Diabetes history: No [id number]-[id number] Score: 1 ARISCAT Score: Age: <=50 Preoperative [...] fever. Neurological: No history of TIA's, stroke, NON DESTRUCTIVE EVALUATION SPECIALIST tumor, impaired sensorium, hemiplegia, paraplegia or quadraplegia. [...] requiring medication, no history of angina, CHF, WA, cardiac surgery or stents. Denies rest pain, gangrene or revascularization/amputation for PVD. No history of cardiovascular symptoms or problems. Negative for: abdominal aortic aneurysm, AICD/PPM, angina, anticoagulation therapy, arrhythmia, atrial fibrillation, CAD, chest pain, CHF, congenital heart defect, DVT/PE, hyperlipidemia, hypertension, recent WA and murmur/valvular heart disease. GI: Negative for: abdominal pain, dysphagia, diverticulitis, GERD, GI bleed <30 days, heartburn, hepatitis, irritable bowel syndrome, inflammatory bowel disease, liver disease, nausea, pancreatitis, vomiting and ETOH >2 drinks/day. : Negative for: on dialysis, dysuria, flank pain, frequent urination, nephrolithiasis and urgency. TREE AND SHRUB TECHNICIAN: Negative for abnormal vaginal bleeding, abnormal vaginal [...] Procedure Laterality Date SECTION HX EGD W/O [facility] SPEC VARICIES INJ THYROID LOBECTOMY,UNILAT Right History [...] or any previous visit (from the past 18990 hours). Instructions Given to Patient: Instructions located in the after visit summary. Patient given verbal and written preop instructions and voices comprehension and compliance. SIGNATURE: Dina Najera APRN.CNP PATIENT NAME: Sima Keen DATE: January 02, 2025 TIME: 10:23 AM PAGER/CONTACT #: [facility] 01-02-2025 History and physical note Images from [...] visit. Either the patient or their legal ocean import representative has been informed of the risks [...] large neck Non-male patient STOP-Bang Score: 1 [id number] Score: Age: <65 Sex: female CHF history: No Hypertension history: No Stroke/TIA/thromboembolism history: No Vascular disease history: No Diabetes history: No ASB6NE9-URGx Score: 1 ARISCAT Score: Age: <=50 Preoperative [...] fever. Neurological: No history of TIA's, stroke, NON DESTRUCTIVE EVALUATION SPECIALIST tumor, impaired sensorium, hemiplegia, paraplegia or quadraplegia. [...] requiring medication, no history of angina, CHF, WA, cardiac surgery or stents. Denies rest pain, gangrene or revascularization/amputation for PVD. No history of cardiovascular symptoms or problems. Negative for: abdominal aortic aneurysm, AICD/PPM, angina, anticoagulation therapy, arrhythmia, atrial fibrillation, CAD, chest pain, CHF, congenital heart defect, DVT/PE, hyperlipidemia, hypertension, recent WA and murmur/valvular heart disease. GI: Negative for: abdominal pain, dysphagia, diverticulitis, GERD, GI bleed <30 days, heartburn, hepatitis, irritable bowel syndrome, inflammatory bowel disease, liver disease, nausea, pancreatitis, vomiting and ETOH >2 drinks/day. : Negative for: on dialysis, dysuria, flank pain, frequent urination, nephrolithiasis and urgency. TREE AND SHRUB TECHNICIAN: Negative for abnormal vaginal bleeding, abnormal vaginal [...] or any previous visit (from the past 10181 hours). Instructions Given to Patient: Instructions located in the after visit summary. Patient given verbal and written preop instructions and voices comprehension and compliance. SIGNATURE: Dina Najera APRN.CNP PATIENT NAME: Sima Keen DATE: January 02, 2025 TIME: 10:23 AM PAGER/CONTACT #: documented in this encounter [facility] 12-06-2024 Note HNO ID: [id number] Author: JEYSON BUSTAMANTE MD Service: ? Author [...] left in place. 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 Those slides have been reviewed here at the [facility] and feel that some of the [...] have been reviewed viewed here at the [facility] and agree with the interpretation of atypia [...] have additional questions. Sincerely, Jeyson Bustamante MD [facility] 11-22-2024 Telephone encounter Note 11/22/2024 INTAKE PENDING(SPOKE WITH PT.)-PER PT. SPOKE WITH FOSTER SEVERAL TIMES AND EVERYTHING SHOULD BE IN HER CHART. ENDOCRINE SURGERY PATIENT WORKSHEET Initial Call Date: November 22, 2024 Reason for Consult/ Referral: Thyroid Nodule PATIENT DEMOGRAPHICS Name: Sima Keen [facility]#: [id number] : 1985 AGE: [age] year old Contact Numbers: Home: (home) Work: There is no work phone number on file. PATIENT PHYSICIAN INFORMATION Referring Doctor: Dr.Michael Cano Address: Phone: Towel Cabinet Repairer: Dr.Michael Cano Address: Phone: PCP: To use this Smartlink, specify the provider ID whose address you want to display, e.g., .PROVADDR[1 (where 1 is the provider ID). PAST TREATMENT Office notes: NONE AVAILABLE Medications: NONE THAT APPLY Pre-Visit Testing STUDY/TEST DATE ORDERED/REQUESTED DATE RECEIVED/COMPLETED ENTIRE PANEL TSH Per pt. Done 08/2024 FREE T4 FREE T3 Imaging Reports: SEE [employer]24 CD of Images: SEE [employer]24 FNA: YES 2020 FNA Slides: Has the patient ever had thyroid or parathyroid surgery before: YES PARTIAL THYROIDECTOMY Operative Reports: NONE AVAILABLE Pathology Reports: NONE AVAILABLE [facility] 11-22-2024 Miscellaneous Notes 11/22/2024 INTAKE PENDING(SPOKE WITH PT.)-PER PT. SPOKE WITH FOSTER SEVERAL TIMES AND EVERYTHING SHOULD BE IN HER CHART. ENDOCRINE SURGERY PATIENT WORKSHEET Initial Call Date: November 22, 2024 Reason for Consult/ Referral: Thyroid Nodule PATIENT DEMOGRAPHICS Name: Sima Keen [facility]#: [id number] : 1985 AGE: [age] year old Contact Numbers: Home: (home) Work: There is no work phone number on file. PATIENT PHYSICIAN INFORMATION Referring Doctor: Dr.Michael Cano Address: Phone: Towel Cabinet Repairer: Dr.Michael Cano Address: Phone: PCP: To use [...] Reports: NONE AVAILABLE documented in this encounter [facility] 10-26-2024 Consult note [facility] 10-26-2024 Consult note [facility] 10-26-2024 Procedure note [facility] 10-26-2024 Procedure note [facility] 10-26-2024 History and physi richard note [facility] 10-26-2024 Note [facility] Medical Records Department [address] [place] [address] History Physical Exam 10/26/24 0931 MR#: [id number] Acct: [id number] Name: SIMA KEEN Rep #: [id number] : 1985 39 From: David Cano MD PCP: ANIBAL Workman Status:[facility] Location: [place] [address]- History and Physical Date of Admission: 10/26/24 MR#: [id number] Acct: [id number] Name: SIMA KEENE Rep #: [id number] : 1985 Provider: Dr. David Cano MD Age/Sex: 38/F Location: [facility] Status: Signed Intake Vital Signs 05/13/2309:50 09/02/2407:13 Height 5 ft 7 in 5 ft 7 in BP 102/69 Blood Pressure Location Rt brachial Position Sitting Respiration 17 Pulse 88 Pulse Source Monitor Temp 97.4 F L Temp Source Temporal Pulse Oximetry (%) 99 Oxygen Delivery Method room air Intake Visit Reasons: 1 yr fu Chief Complaint: F/u medication Basic Sciences Professor Required: No Is patient in pain?: No [...] other visual dist (more content not included)... [facility] 10-26-2024 Consult note [facility] 10-26-2024 Telephone encounter Note Indexed referral for Dr. Bustamante for thyroid nodule. Please reach out to patient to schedule. [facility] 10-26-2024 Miscellaneous Notes Indexed referral for Dr. Bustamante for thyroid nodule. Please reach out to patient to schedule. documented in this encounter [facility] 10-21-2024 Radiology Diagnostic study note [facility] [address] [place] [address] [id number] Head/Neck Soft Tissue MR#: [id number] Acct: [id number] Name: SIMA KEEN Rep #: [id number] : 1985 F 39 From: Pet er Jet WALKER PCP: ANIBAL Workman Status: REG CLI Study:Head/Neck Soft Tissue Date of Exam: 10/20/24 Exam# [id number] Ordering Dr: Toyin Cano MD EXAM: Ultrasound head/neck soft tissue CLINICAL HISTORY: Malignant neoplasm of thyroid status post right thyroid lobectomy. [facility] COMPARISON: Ultrasound thyroid of 09/04/2024. [...] measurements and location given above. Reading Location: [facility] CC: Dr. David Cnao MD; ANIBAL Workman ~ Oil Field Tester: Signed [facility] 10-04-2024 Evaluation note Diagnosis Onset Date Resolution Thyroid nodule acute September 1:01pm [facility] Work Phone: 1(117) 784-721810-26-2023 History and physical note Author David Cano [facility] May 13, 2023 10:23am Note Date/Time May 13, 2023 1 0:23am [facility] Medical Records Department [address] [place] [address] History & Physical Exam 05/13/23 1020 MR#: [id number] Acct: [id number] Name: SIMA KEEN Rep #:[id number] : 1985 38 From: David Anne PCP: ANIBAL Workman Status:[facility] Location: [place] [address] HPI - General HPI Narrative Patient is [...] of fullness in her throat with swallowing. [facility] Medical History (Updated 05/13/23 @ [...] Reaction Status Date / Time cefaclor [From [facility]] Allergy Rash Verified 05/13/23 09:47 Family History [...] Charges/Coding Visit Charges Office Visits / Consults: 55741 OV L2 Est 05/13/23 1023 <Electronically signed by David Cano MD> Cosigner Signature (if applicable): CC: Dr. David Cano MD; ANIBAL Workman~ Signed [facility] Work Phone: 1(794) 508-668510-26-2023 Procedure [facility] 05-13-2023 [facility] Note Date/Time October 26, 2024 9:2 4am [facility] Department [address] [place] [address] Pre-Anesthesia Evaluation 10/26/24 0917 MR#: [id number] Acct: [id number] Name: SIMA KEEN Rep #:[id number] : 1985 39 From: Elliott Reynaga MD PCP: ANIBAL Workman [place] [place] Race: [facility] Location: [place] [address] ASA Classification* ASA Classification ASA Classification: 2 [...] Procedure(s): Esophagogastroduodenoscopy. 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 History - derrick boat runner: Anesthesia History - derrick boat runner Hx Hospitalization No 10/23/24 08:58 Any Problems [...] take am of surgery PONV PONV - derrick boat runner: PONV - derrick boat runner Female Yes 10/23/24 08:58 HX of Motion [...] 10/26/24 08:53 Respiratory Assessment Respiratory Assessment - derrick boat runner: Respiratory Tract Infection Hx - derrick boat runner Hx Respiratory Tract Infection No 10/23/24 08:58 STOP Sleep Apnea STOP Sleep Apnea - derrick boat runner: STOP Sleep Apnea - derrick boat runner Hx Hypertension No 10/23/24 08:58 Hx Sleep [...] Tobacco Use History Tobacco Use History - derrick boat runner: Tobacco Use History - derrick boat runner Tobacco Use Smoking Status Never smoker 10/23/24 08:58 Hx Tobacco Use No 10/23/24 08:58 Years Smoking Packs Smoked per Day Smoking Cessation Date was within the last 15 years Hx Smoking Cessation Date Hx Smoking Cessation Counseling Hematologic Medial History Hematologic Hx - derrick boat runner: Hematologic Medical Hx - precision assembler bench Hx of Blood Transfusion No 10/23/24 08:58 [...] confused, unrespo /Reproduction History /Reproductive History - derrick boat runner: /Reproductive Hx- derrick boat runner Hx Now No 10/23/24 08:58 Gestational Age (in weeks): EDC: Hx Hx Para Hx Section SAB No 10/23/24 08:58 [facility] Medical History Thyroid cancer Wears contact lenses [...] Reaction Status Date / Time cefaclor (From [facility]) Allergy Rash Verified 10/26/24 08:50 Family History [...] MD Cosigner Signature: Date CC: ~ Signed [facility] Work Phone: Consult note Author ANDERSON Gomez [facility] Note Date/Time October 26, 2024 10: 30am [facility] [address] [place] [address] Anesthesia Postop Eval I 10/26/24 1029 MR#: [id number] Acct: [id number] Name: SIMA KEEN Rep #:[id number] : 1985 39 From: Vince Gomez PCP: ANIBAL Workman Status:REG SDC Y Race: [facility] Location: [place] [address] Anesthesia: Postop Eval I Current Vital Signs [...] Vince Naranjo Signature: Date CC: ~ Signed [facility] Work Phone: Consult note Author Elliott Reynaga [facility] Note Date/Time October 26, 2024 10: 52am [facility] Department [address] [place] [address] Anesthesia Postop Eval II 10/26/24 1051 MR#: [id number] Acct: [id number] Name: SIMA KEEN Rep #:[id number] : 1985 39 From: Elliott Reynaga MD PCP: ANIBAL Workman Status:REG SDC Y Race: UTD Location: [place] [address] Anesthesia Postop Eval I Sum Postop Eval [...] MD Cosigner Signature: Date CC: ~ Signed [facility] Work Phone: Consult note Author Elliott Reynaga [facility] Note Date/Time March 01, 2025 7: 22am [facility] Department [address] [place] [address] Pre-Anesthesia Evaluation 03/01/25 0717 MR#: [id number] Acct: [id number] Name: SIMA KEEN Rep #:[id number] : 1985 39 From: Elliott Reynaga MD PCP: ANIBAL Workman Status:REG SDC Y Race: C Location: [place] [address] ASA Classification* ASA Classification ASA Classification: 2 [...] Procedure(s): EGD 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 History - derrick boat runner: Anesthesia History - derrick boat runner Hx Hospitalization Yes: 01/11/2025 THYROID 02/27/25 12:18 [...] take am of surgery PONV PONV - derrick boat runner: PONV - derrick boat runner Female Yes 02/27/25 12:18 HX of Motion [...] 03/01/25 07:01 Respiratory Assessment Respiratory Assessment - derrick boat runner: Respiratory Tract Infection Hx - derrick boat runner Hx Respiratory Tract Infection No 02/27/25 12:18 STOP Sleep Apnea STOP Sleep Apnea - derrick boat runner: STOP Sleep Apnea - derrick boat runner Hx Hypertension No 02/27/25 12:18 Hx Sleep [...] Tobacco Use History Tobacco Use History - derrick boat runner: Tobacco Use History - derrick boat runner Tobacco Use Smoking Status Never smoker 02/27/25 12:18 Hx Tobacco Use No 02/27/25 12:18 Years Smoking Packs Smoked per Day Smoking Cessation Date was within the last 15 years Hx Smoking Cessation Date Hx Smoking Cessation Counseling Hematologic Medial History Hematologic Hx - derrick boat runner: Hematologic 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 Note Date/Time March 01, 2025 8: 14am [facility] Records Department [address] [place] [address] Anesthesia Postop Eval I 03/01/25811 MR#: [id number] Acct: [id number] Name: SIMA KEEN Rep #:[id number] : 1985 39 From: Modesto Zhou RNA PCP: ANIBAL Workman Status[place] [facility] [place] Race: C Location: [place] [address] Anesthesia: Postop Eval I Current Vital Signs [...] CRNA Cosigner Signature: Date CC: ~ Signed [facility] Work Phone: Consult note Author Modesto Nunez [facility] Note Date/Time March 01, 2025 9: 15am [facility] Records Department [address] [place] [address] Anesthesia Postop Eval II 03/01/25823 MR#: [id number] Acct: [id number] Name: SIMA KEEN Rep #:[id number] : 1985 39 From: Modesto Zhou RNA PCP: ANIBAL Workman Status:[facility] [place] Race: C Location: [place] [address] Anesthesia Postop Eval I Sum Postop Eval Completion status Anesthesia document: Postop Eval 1 completed: Yes Anesthesia Postop Eval I Summary Anesthesia Postop Eval I Summary: Anesthesia Postop Eval I: Assessment Summary Airway patent Yes 03/01/25 08:14 DISC INSPECTOR.KAREL Spontaneous unlabored Yes 03/01/25 08:14 DISC INSPECTORANNEL respirations Mental status Awake,Calm 03/01/25 08:14 DISC INSPECTORANNEL nausea No 03/01/25 08:14 DISC INSPECTOR.OT Vomiting No 03/01/25 08:14 DISC INSPECTORANNEL Anesthesia Postop Eval I: Fluid Summary Crystalloid volume administer 300 03/01/25 08:14 DISC INSPECTORANNEL (ml) Colloids volume administered ( ml) Blood Product volume administered (ml) Total IV fluid infused 300 03/01/25 08:14 DISC INSPECTORANNEL Anesthesia Postop Eval I: Summary Notes Anesthesia Complication No 03/01/25 08:14 DISC INSPECTORANNEL Anesthesia Complication Comment: Post-operative progress note Anesthesia: Postop Eval II Evaluation Mental status: Awake and Calm Pain Level: 0 nausea: No Vomiting: No Complications Anesthesia Complication: No 03/01/25 0824 <Electronically signed by Modesto Nunez CRNA> Date _ Mdoesto Nunez CRNA Cosigner Signature: Date CC: ~ Signed [facility] Work Phone: Evaluation note* Diagnosis Onset Date Resolution Status Acid reflux acute Dysphagia acute Globus sensation acute [facility] Work Phone: Evaluation note* Diagnosis Malignant neoplasm of thyroid gland (HCC)- Primary Malignant neoplasm of thyroid gland Papillary carcinoma of thyroid (HCC) Malignant neoplasm of thyroid gland [facility] Esophagitis- Primary Esophagitis, unspecified [...] * Assessment & Plan Note - Dina Njaera APRN.CNP - 01/02/2025 10:15 AM EDTAssociated Problem(s): [...] vomiting) Patient reported [facility] Esophagitis- Primary Esophagitis, unspecified Papillary carcinoma of thyroid (HCC) Malignant neoplasm of thyroid gland PONV (postoperative nausea and vomiting) Nausea with vomiting Anxiety Anxiety state, unspecified History of lobectomy of thyroid Papillary carcinoma of thyroid (HCC)- Primary Malignant neoplasm of thyroid gland [facility] Esophagitis- Primary Esophagitis, unspecified Papillary carcinoma of thyroid (HCC) Malignant neoplasm of thyroid gland PONV (postoperative nausea and vomiting) Nausea with vomiting Anxiety Anxiety state, unspecified History of lobectomy of thyroid Malignant neoplasm of thyroid gland (HCC)- Primary Malignant neoplasm of thyroid gland [facility] Diagnosis Esophagitis- Primary Esophagitis, unspecified Papillary carcinoma of thyroid (HCC) Malignant neoplasm of thyroid gland PONV (postoperative nausea and vomiting) Nausea with vomiting Anxiety Anxiety state, unspecified History of lobectomy of thyroid Malignant neoplasm of thyroid gland (HCC) Malignant neoplasm of thyroid gland [facility] noteNo assessment information [facility]WMercy [facility] Work Phone: Evaluation note* Diagnosis Esophagitis- Primary Esophagitis, unspecified Papillary carcinoma of thyroid (HCC) Malignant neoplasm of thyroid gland PONV (postoperative nausea and vomiting) Nausea with vomiting Anxiety Anxiety state, unspecified History of lobectomy of thyroid Esophagitis- Primary Esophagitis, unspecified Malignant neoplasm of thyroid gland (HCC) Malignant neoplasm of thyroid gland [facility] Author David Cano [facility] Note Date/Time October 26, 2024 9:3 2am [facility] Medical Records Department [address] [place] [address] History & Physical Exam 10/26/24 0931 MR#: [id number] Acct: [id number] Name: SIMA KEEN Rep #:[id number] : 1985 39 From: David Anne PCP: ANIBAL Workman Status:[facility] Location: [place] [address] History and Physical Date of Admission: 10/26/24 MR#: [id number] Acct: [id number] Name: SIMA KEEN Rep #: [id number] : 1985 Provider: Dr. David Cano MD Age/Sex: 38/F Location: [facility] Status: Signed Intake Vital Signs 05/13/2309:50 09/02/2407:13 Height 5 ft 7 in 5 ft 7 in BP 102/69 Blood Pressure Location Rt brachial Position Sitting Respiration 17 Pulse 88 Pulse Source Monitor Temp 97.4 F L Temp Source Temporal Pulse Oximetry (%) 99 Oxygen Delivery Method room air Intake Visit Reasons: 1 yr fu Chief Complaint: F/u medication Basic Sciences Professor Required: No Is patient in pain?: No Allergies cefaclor [From [facility]] Allergy (Verified 09/02/23 08:14) Rash Medications amoxicillin [...] thyroid bed. She is being referred to [facility] for further evaluation of this issue [...] Dr. David Cano MD; ANIBAL Workman~ Signed [facility] Work Phone: History and physical note Author David Cano [facility] Note Date/Time March 01, 2025 7: 43am [facility] System Medical Records Department [address] [place] [address] History & Physical Exam 03/01/25 0741 MR#: [id number] Acct: [id number] Name: SIMA KEEN Rep #:[id number] : 1985 39 From: David Anne PCP: ANIBAL Workman [place] [place] Location: [address] History and Physical Date of Admission: 03/01/25 Date of Service: 10/04/24 MR#: [id number] Acct: [id number] Name: SIMA KEEN Rep #: [id number] : 1985 Provider: Dr. David Cano MD Age/Sex: 39/F Location: [facility] Status: Signed Intake Vital Signs 12/08/2408:44 [...] None Estimated blood loss: 3 ml Alert Associate Professor Of Automation Alert Billing: Yes FNA [id number] Thyroid (X 2) Procedure Time Out Time [...] to apply ice to neck today. Use [id number]-acn-jytperj analgesia. Remove bandage later today ?Await cytopathology results and follow-up with patient for formulation of remainder of care plan I have examined the patient the following changes are noted: Patient underwent completion thyroidectomy with central lymph node dissection at the [facility] for recurrent thyroid cancer. She reports [...] Dr. David Cano MD; ANIBAL Workman~ Signed [facility] Work Phone: Reason for referral (narrative)No reason for referral information availableWMercy [facility] Work Phone: Summary Purpose Family History [...] Will No May 05 11:54am Power of Marketing Services Specialist No May 05, 2023 11:54am Advance Directive Response Recorded Date/ Time Living Will No October 23, 2024 8:58am Do you have a Healthcare Power of Marketing Services Specialist? No October 23, 2024 8:58am Advance Directive Response Recorded Date/ Time Do you have a Healthcare Power of Marketing Services Specialist? No February 27, 2025 12:18pm Chief Complaint [...] section and content) DATE CREATED AUTHOR 09/21/2020 [facility] DATE CREATED AUTHOR AUTHOR'S ORGANIZ ATION 05/22/2021 [facility] DATE CREATED AUTHOR AUTHOR'S ORGANIZ ATION 09/01/2024 [facility] DATE CREATED AUTHOR AUTHOR'S ORGANIZ ATION 09/02/2024 [facility] DATE CREATED AUTHOR AUTHOR'S ORGANIZ ATION 01/18/2025 [facility] DATE CREATED AUTHOR AUTHOR'S ORGANIZ ATION 03/31/2025 [facility] DATE CREATED AUTHOR AUTHOR'S ORGANIZ ATION 04/07/20[facility] Care Teams (unrecognized sec [...] Provider Active Sta rt: October 26, 2024 Hat Maker Relationship Specialty Start Date End Date Alanis Batista [address] [place] [address] [place] [address] PCP - General Family Medicine 12/08/24 Hat Maker Relationship Specialty Start Date End Date Alanis Batista [address] [place] [address] PCP - General Family Medicine 12/08/24 Hat Maker Relationship Specialty Start Date End Date Alanis Batista [address] [place] [address] PCP - General Family Medicine 12/08/24 Hat Maker Relationship Specialty Start Date End Date Alanis Batista [address] [place] [address] PCP - General Family Medicine 12/08/24 Hat Maker Relationship Specialty Start Date End Date Alanis Batista [address] [place] [address] PCP - General Family Medicine 12/08/24 Hat Maker Relationship Specialty Start Date End Date Alanis Batista [address] [place] [address] PCP - General Family Medicine 12/08/24 Hat Maker Relationship Specialty Start Date End Date Alanis Batista [address] [place] [address] PCP - General Family Medicine 12/08/24 Hat Maker Relationship Specialty Start Date End Date Alanis Batista [address] [place] [address] PCP - General Family Medicine 12/08/24 Hat Maker Relationship Specialty Start Date End Date Alanis Batista [address] [place] [address] PCP - General Family Medicine 12/08/24 Team [...] Provider Active Sta rt: March 01, 2025 Hat Maker Relationship Specialty Start Date End Date Alanis Batista [address] [place] [address] PCP - General Family Medicine 12/08/24 Hat Maker Relationship Specialty Start Date End Date BatistaRosamaria merchantgolden Fang [address] [place] [address] PCP - General Family Medicine 12/08/24 Goals [...] or prosecute any alcohol or drug abuse patient.[facility] the event this information is protected by the Federal Confidentiality of Alcohol and Drug Abuse Patient Records regulations: The Federal rules restrict any use of the information to criminally investigate or prosecute any alcohol or drug abuse patient.[facility] the event this information is protected by the Federal Confidentiality of Alcohol and Drug Abuse Patient Records regulations: The Federal rules restrict any use of the information to criminally investigate or prosecute any alcohol or drug abuse patient.[facility] HospitalIn the event this information is protected by the Federal Confidentiality of Alcohol and Drug Abuse Patient Records regulations: The Federal rules restrict any use of the information to criminally investigate or prosecute any alcohol or drug abuse patient.[facility] Hospital[facility] the event this information is protected by the Federal Confidentiality of Alcohol and Drug Abuse Patient Records regulations: The Federal rules restrict any use of the information to criminally investigate or prosecute any alcohol or drug abuse patient.[facility] HospitalIn the event this information is protected by the Federal Confidentiality of Alcohol and Drug Abuse Patient Records regulations: The Federal rules restrict any use of the information to criminally investigate or prosecute any alcohol or drug abuse patient.[facility] Hospital[facility] the event this information is protected by the Federal Confidentiality of Alcohol and Drug Abuse Patient Records regulations: The Federal rules restrict any use of the information to criminally investigate or prosecute any alcohol or drug abuse patient.[facility] Hospital[facility] the event this information is protected by the Federal Confidentiality of Alcohol and Drug Abuse Patient Records regulations: The Federal rules restrict any use of the information to criminally investigate or prosecute any alcohol or drug abuse patient.[facility] HospitalIn the event this information is protected by the Federal Confidentiality of Alcohol and Drug Abuse Patient Records regulations: The Federal rules restrict any use of the information to criminally investigate or prosecute any alcohol or drug abuse patient.[facility] HospitalIn the event this information is protected by the Federal Confidentiality of Alcohol and Drug Abuse Patient Records regulations: The Federal rules restrict any use of the information to criminally investigate or prosecute any alcohol or drug abuse patient.[facility] Hospital[facility] the event this information is protected by the Federal Confidentiality of Alcohol and Drug Abuse Patient Records regulations: The Federal rules restrict any use of the information to criminally investigate or prosecute any alcohol or drug abuse patient.[facility] HospitalIn the event this information is protected by the Federal Confidentiality of Alcohol and Drug Abuse Patient Records regulations: The Federal rules restrict any use of the information to criminally investigate or prosecute any alcohol or drug abuse patient.[facility] HospitalIn the event this information is protected by the Federal Confidentiality of Alcohol and Drug Abuse Patient Records regulations: The Federal rules restrict any use of the information to criminally investigate or prosecute any alcohol or drug abuse patient.[facility] HospitalIn the event this information is protected by the Federal Confidentiality of Alcohol and Drug Abuse Patient Records regulations: The Federal rules restrict any use of the information to criminally investigate or prosecute any alcohol or drug abuse patient.[facility] HospitalIn the event this information is protected by the Federal Confidentiality of Alcohol and Drug Abuse Patient Records regulations: The Federal rules restrict any use of the information to criminally investigate or prosecute any alcohol or drug abuse patient.[facility] Reason for Visit (unrecogniz ed section and content) Reason Comments Outside Referral Requests Reason Comments Consult FACE SHEET Reason Comments Pre-Op Visit Reason Comments Thyroid Disease Reason Comments Appointment Left a message for [facility] [phone] to schedule a Consult with a [facility] for [facility] for Thyroid Cancer diagnosis and sent My Chart message Reason Comments Thyroid Cancer Specialty Diagnoses / Procedures Referred By Contac t Referred To Contact Endocrinology Diagnoses Malignant neoplasm of thyroid gland (HCC) Procedures CONSULT TO ENDOCRINOLOGY OFFICE/OUTPATIENT [facility] 60 MINUTES Jeyson Bustamante MD [address] [place] [address] Phone: tel: fax: Referral ID Status Reason Start Date Expiration Date V isits Requested Visits Authorized [id number] Closed PCP Requested Referral 01/29/2025 01/29/2026 1 [...] BE BASED ON THE PRIMARY CLINICAL RECORDS. [facility] [email or web address] [facility]. provides no warranty or guarantee of the accuracy or completeness of information in this document.
== END | disposition home or self-care (01) ==
LOC: OPBI 04-13 07:27
PROVIDERS: PCP Physician Assistant; Referring Provider Physician Assistant; Visit Provider Physician Assistant
DX: Z12.31 Encounter for screening mammogram for malignant neoplasm of breast (principal)
CPT/HCPCS: 77063; 77067